=== PATIENT | male | born 1950 | race Caucasian/White ===

== ENCOUNTER 2017-02-09 12:44 | Observation (INO) | payer OTHER ==
--- NOTE | 2017-02-09 14:05 | ED ---
General Adult HPI - General Chief complaint: Recheck/Abnormal Lab/Rx Stated complaint: low hemoglobin-sent by Time Seen by Provider: 02/09/17 13:53 Source: patient, RN notes reviewed, old records reviewed Mode of arrival: ambulatory Limitations: no limitations - History of Present Illness Initial comments: This is a 66-year-old male to the ER with abnormal outpatient lab test. Patient has history of Crohn's disease. Denies blood in his stool. Patient has had outpatient lab test 2 is shows low hemoglobin, once the lab and now 9. Denies weakness or fatigue. He does have mild abdominal pain but states he always has that with his Crohn's disease. No blood thinners. - Related Data Home Medications Medication Instructions Recorded Confirmed Simvastatin [Zocor] 20 mg PO HS 05/26/16 02/09/17 Acetaminophen Tab [Tylenol Tab] 1,000 mg PO DAILY 02/09/17 02/09/17 Lisinopril [Zestril] 2.5 mg PO DAILY 02/09/17 02/09/17 Loperamide HCl [Imodium A-D] 2 mg PO DAILY 02/09/17 02/09/17 Multivitamins, Thera [Multivitamin 1 tab PO DAILY 02/09/17 02/09/17 (formulary)] Allergies Allergy/AdvReac Type Severity Reaction Status Date / Time No Known Allergies Allergy Verified 02/09/17 13:28 Review of Systems ROS Statement: Those systems with pertinent positive or pertinent negative responses have been documented in the HPI. ROS Other: All systems not noted in ROS Statement are negative. Past Medical History Past Medical History: Asthma, CVA/TIA, Hearing Disorder / Deafness, Prostate Disorder, Renal Disease Additional Past Medical History / Comment(s): 05/26/16 FELL,C/O RT HIP PAIN. 05/27 HAD STROKE -RESIDUAL HAS LOSS OF PERIPHERAL VISION. Pt fell and broke L wrist in 2013 and also had fxs in his back. In 01/2015 pt had acute epidural abscess L5-S1, acute discitis and sepsis R ankle (that eventually went systemic per pt). He had a laminectomy, discectomy and decompression L5-S1 along with I and D of an epdural abscess L5-S1. He was transferred to [facility] post op for continued tx of his sepsis. He was sent from [place] to [facility] for another I and D of the back and eventually went home on home care antibiotics. Additional HX: chronic ulcerative colitis , chronic diarrhea-PT STATED HIS NORM IS 3-5 DIARRHEA/WATERY STOOLS PER DAY, BPH, ARTHRITIS R ankle, , chronic stable asthma, DJD, kidney stones, asbestos exposure in the [place], UTI. Pt denies HTN now that he is off steroids and also diabetes. He also has history of Crohn's disease. He is currently on Humira. History of Any Multi-Drug Resistant Organisms: MRSA Date of last positivie culture/infection: January 2015 (At [facility] per patient) MDRO Source:: Right Ankle and Back (per patient) Past Surgical History: Adenoidectomy, Orthopedic Surgery, Tonsillectomy Additional Past Surgical History / Comment(s): 01/2015 Laminectomy, discectomy with decompression L5-S1, I&D epidural abscess L5-S1 (STATED HAD MULTIPLE BX- BENIGN)and aspiration R ankle, 02/2015 I&D L5-S1 at [facility], Yearly colonoscopy . left wrist surgically repaired after fx. Past Anesthesia/Blood Transfusion Reactions: No Reported Reaction Additional Past Anesthesia/Blood Transfusion Reaction / Comment(s): Pt states he recieved blood 02/2015 at [facility] without reaction. Past Psychological History: No Psychological Hx Reported Additional Psychological History / Comment(s): Pt resides alone. He has 5 dogs. . He is independent. He no longer is using any home care. 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 Smoking Status: Never smoker Past Alcohol Use History: None Reported Additional Past Alcohol Use History / Comment(s): Patient has a history of smoking marijuana half ounce per day and quit in 1998. He denies any history of smoking cigarettes. He denies any alcohol use SINCE 1975. Patient is worked in the [employer] and had exposure to asbestos. He is currently living alone with 4 dogs. No recent travel. Past Drug Use History: None Reported - Past Family History Father Family Medical History: Myocardial Infarction ([place]) Additional Family Medical History / Comment(s): Father of massive [place]. Mother Family Medical History: Diabetes Mellitus General Exam Limitations: no limitations General appearance: alert, in no apparent distress Head exam: Present: atraumatic, normocephalic, normal inspection Eye exam: Present: normal appearance, PERRL, EOMI. Absent: scleral icterus, conjunctival injection, periorbital swelling ENT exam: Present: normal exam, mucous membranes moist Neck exam: Present: normal inspection. Absent: tenderness, meningismus, lymphadenopathy Respiratory exam: Present: normal lung sounds bilaterally. Absent: respiratory distress, wheezes, rales, rhonchi, stridor Cardiovascular Exam: Present: regular rate, normal rhythm, normal heart sounds. Absent: systolic murmur, diastolic murmur, rubs, gallop, clicks GI/Abdominal exam: Present: soft, normal bowel sounds. Absent: distended, tenderness, guarding, rebound, rigid Rectal exam: Present: heme (+) stool Extremities exam: Present: normal inspection, full ROM, normal capillary refill. Absent: tenderness, pedal edema, joint swelling, calf tenderness Back exam: Present: normal inspection Neurological exam: Present: alert, oriented X3, CN II-XII intact Psychiatric exam: Present: normal affect, normal mood Skin exam: Present: warm, dry, intact, normal color. Absent: rash Course Vital Signs 02/09/17 02/09/17 02/09/17 13:02 14:11 15:07 Temperature 99.6 F Pulse Rate 113 H 118 H 83 Respiratory 20 18 18 Rate Blood Pressure 125/64 148/79 126/73 O2 Sat by Pulse 96 96 97 Oximetry - Reevaluation(s) Reevaluation #1: 02/09/17 15:25 Patient does feel weak and lightheaded but not dizzy. Medical Decision Making - Medical Decision Making 60 formality ER for evaluation of low hemoglobin. Trending down hematoma from 11-9 out is 8. Patient does have positive fecal, blood tests and blood in his stool. Patient be admitted for GI evaluation - Lab Data Result diagrams: 02/09/17 13:32 02/09/17 13:32 Lab Results 02/09/17 02/09/17 02/09/17 Range/Units 13:32 13:32 13:32 WBC 10.5 (3.8-10.6) k/uL RBC 4.20 L (4.30-5.90) m/uL Hgb 8.7 L (13.0-17.5) gm/dL Hct 29.6 L (39.0-53.0) % MCV 70.4 L (80.0-100.0) fL MCH 20.8 L (25.0-35.0) pg MCHC 29.6 L (31.0-37.0) g/dL RDW 16.8 H (11.5-15.5) % Plt Count 384 (150-450) k/uL Neutrophils % 74 % Lymphocytes % 15 % Monocytes % 6 % Eosinophils % 2 % Basophils % 1 % Neutrophils # 7.7 (1.3-7.7) k/uL Lymphocytes # 1.5 (1.0-4.8) k/uL Monocytes # 0.7 (0-1.0) k/uL Eosinophils # 0.3 (0-0.7) k/uL Basophils # 0.1 (0-0.2) k/uL Hypochromasia Marked Poikilocytosis Slight Anisocytosis Slight Microcytosis Marked Sodium 140 (137-145) mmol/L Potassium 3.7 (3.5-5.1) mmol/L Chloride 106 (98-107) mmol/L Carbon Dioxide 22 (22-30) mmol/L Anion Gap 12 mmol/L BUN 24 H (9-20) mg/dL Creatinine 1.25 (0.66-1.25) mg/dL Est GFR (MDRD) Af Amer >60 (>60 ml/min/1.73 sqM) Est GFR (MDRD) Non-Af 58 (>60 ml/min/1.73 sqM) Glucose 175 H (74-99) mg/dL Calcium 8.8 (8.4-10.2) mg/dL Phosphorus 3.5 (2.5-4.5) mg/dL Magnesium 2.0 (1.6-2.3) mg/dL Total Bilirubin 0.4 (0.2-1.3) mg/dL AST 24 (17-59) U/L ALT 22 (21-72) U/L Alkaline Phosphatase 108 (38-126) U/L Total Protein 7.7 (6.3-8.2) g/dL Albumin 3.7 (3.5-5.0) g/dL Lipase 196 (23-300) U/L Stool Occult Blood (Negative) 02/09/17 Range/Units 14:19 WBC (3.8-10.6) k/uL RBC (4.30-5.90) m/uL Hgb (13.0-17.5) gm/dL Hct (39.0-53.0) % MCV (80.0-100.0) fL MCH (25.0-35.0) pg MCHC (31.0-37.0) g/dL RDW (11.5-15.5) % Plt Count (150-450) k/uL Neutrophils % % Lymphocytes % % Monocytes % % Eosinophils % % Basophils % % Neutrophils # (1.3-7.7) k/uL Lymphocytes # (1.0-4.8) k/uL Monocytes # (0-1.0) k/uL Eosinophils # (0-0.7) k/uL Basophils # (0-0.2) k/uL Hypochromasia Poikilocytosis Anisocytosis Microcytosis Sodium (137-145) mmol/L Potassium (3.5-5.1) mmol/L Chloride (98-107) mmol/L Carbon Dioxide (22-30) mmol/L Anion Gap mmol/L BUN (9-20) mg/dL Creatinine (0.66-1.25) mg/dL Est GFR (MDRD) Af Amer (>60 ml/min/1.73 sqM) Est GFR (MDRD) Non-Af (>60 ml/min/1.73 sqM) Glucose (74-99) mg/dL Calcium (8.4-10.2) mg/dL Phosphorus (2.5-4.5) mg/dL Magnesium (1.6-2.3) mg/dL Total Bilirubin (0.2-1.3) mg/dL AST (17-59) U/L ALT (21-72) U/L Alkaline Phosphatase (38-126) U/L Total Protein (6.3-8.2) g/dL Albumin (3.5-5.0) g/dL Lipase (23-300) U/L Stool Occult Blood Positive (Negative) Disposition Clinical Impression: GIB (gastrointestinal bleeding), Anemia Disposition: ADMITTED IP TO THIS [facility] Condition: Fair Referrals: Atul Mejía DO [Primary Care Provider] - 1-2 days
[2017-02-09 14:08] LABS: Anisocytosis Slight; Basophils # (A) 0.1 k/uL (0-0.2); Basophils % (A) 1 %; CHCM 28.6; Eosinophils # (A) 0.3 k/uL (0-0.7); Eosinophils % (A) 2 %; HCT 29.6 % (39.0-53.0); HDW 3.69; HGB 8.7 gm/dL (13.0-17.5); Hypochromasia Marked; Luc # (Auto) 0.25; Luc % (Auto) 2; Lymphocytes # (A) 1.5 k/uL (1.0-4.8); Lymphocytes % (A) 15 %; MCH 20.8 pg (25.0-35.0); MCHC 29.6 g/dL (31.0-37.0); MCV 70.4 fL (80.0-100.0); Mean Platelet Volume 6.1; Microcytosis Marked; Monocytes # (A) 0.7 k/uL (0-1.0); Monocytes % (A) 6 %; Neutrophils # (A) 7.7 k/uL (1.3-7.7); Neutrophils % (A) 74 %; Poikilocytosis Slight; RDW 16.8 % (11.5-15.5); WBC 10.5 k/uL (3.8-10.6); WBC (Perox) 10.16
[2017-02-09 14:16] LABS: ALT 22 U/L (21-72); AST 24 U/L (17-59); Alkaline Phosphatase 108 U/L (38-126); Anion Gap 12 mmol/L; Blood Urea Nitrogen 24 mg/dL (9-20); Calcium 8.8 mg/dL (8.4-10.2); Carbon Dioxide 22 mmol/L (22-30); Chloride 106 mmol/L (98-107); Glucose 175 mg/dL (74-99); Non-African American GFR(MDRD) 58 (>60 ml/min/1.73 sqM); Potassium 3.7 mmol/L (3.5-5.1); Sodium 140 mmol/L (137-145); Total Bilirubin 0.4 mg/dL (0.2-1.3); Total Protein 7.7 g/dL (6.3-8.2)
[2017-02-09 14:33] LABS: Phosphorous 3.5 mg/dL (2.5-4.5)
[2017-02-09] MEDS ORDERED: SODIUM CHLORIDE 0.9% 1,000 ML IV ONE (15:21)
[2017-02-09] MEDS ORDERED: PANTOPRAZOLE 40 MG/10 ML VIAL IVP STA (15:22)
[2017-02-09] MEDS ORDERED: ONDANSETRON 4 MG/2 ML VIAL IVP PRN (15:22)
[2017-02-09 16:37] VITALS: RESP 16
[2017-02-09] MEDS ORDERED: ATORVASTATIN 10 MG TAB PO SCH (21:00)
[2017-02-10 00:44] LABS: Anisocytosis Slight; CH 19.9; HCT 27.8 % (39.0-53.0); Hypochromasia Marked; MCH 20.6 pg (25.0-35.0); MCHC 28.8 g/dL (31.0-37.0); MCV 71.5 fL (80.0-100.0); Mean Platelet Volume 6.3; Microcytosis Moderate; Poikilocytosis Slight; RBC 3.88 m/uL (4.30-5.90); RDW 16.9 % (11.5-15.5); WBC 8.6 k/uL (3.8-10.6)
[2017-02-10 08:35] VITALS: BP 127/86; PULSE 88; TEMP 98.3
[2017-02-10] MEDS ORDERED: PANTOPRAZOLE 40 MG/10 ML VIAL IVP SCH (09:00)
[2017-02-10] MEDS ORDERED: LOPERAMIDE 2 MG CAP PO SCH (09:00)
[2017-02-10] MEDS ORDERED: LISINOPRIL 2.5 MG TAB PO SCH (09:00)
[2017-02-10] MEDS ORDERED: MULTIVITAMINS, THERA 1 EACH TAB PO SCH (12:00)
[2017-02-10 12:59] LABS: Anisocytosis Slight; Basophils % (A) 0 %; CH 19.9; Eosinophils # (A) 0.3 k/uL (0-0.7); Eosinophils % (A) 3 %; HCT 30.9 % (39.0-53.0); HGB 8.8 gm/dL (13.0-17.5); Hypochromasia Marked; Luc # (Auto) 0.22; Luc % (Auto) 2; Lymphocytes # (A) 1.6 k/uL (1.0-4.8); Lymphocytes % (A) 16 %; MCH 20.5 pg (25.0-35.0); MCHC 28.7 g/dL (31.0-37.0); MCV 71.6 fL (80.0-100.0); Mean Platelet Volume 6.3; Microcytosis Moderate; Monocytes # (A) 0.6 k/uL (0-1.0); Monocytes % (A) 6 %; Neutrophils # (A) 7.4 k/uL (1.3-7.7); Neutrophils % (A) 73 %; Poikilocytosis Slight; RBC 4.31 m/uL (4.30-5.90); RDW 16.8 % (11.5-15.5); WBC 10.1 k/uL (3.8-10.6)
--- NOTE | 2017-02-10 13:16 | P.CONS ---
History of Present Illness - Reason for Consult Consult date: 02/10/17 Anemia Requesting physician: Rex Gabriel - History of Present Illness 66-year-old gentleman patient of Dr. Mejía with a past medical history of colitis that dates back to [id number] diagnosed with Crohn's colitis possible ileitis around 2012 maintained on Remicade/Humira in the past. Last dose of Humira 10-12 months ago. Presents with asymptomatic anemia; abnormal outpatient CBC. Patient was evaluated at the [place] [facility] 2 weeks ago with a reported hemoglobin 11.7. He was evaluated by [facility] a week ago and was advised to have his hemoglobin rechecked because previous hemoglobin was in the 13 range. It was rechecked 2 days ago and reported as 9.7. He was sent to the hospital for further evaluation. Patient denies overt bleeding such as hematemesis hematochezia or melena. Admission hemoglobin 8.7 decreased 8.0 currently 8.8. MCV 71. Platelet 370. BUN 24. Creatinine 1.2. Denies epigastric or abdominal pain. No NSAIDs or aspirin or alcohol usage. No antiplatelet medications. Denies weight loss or changes in appetite. Patient normally has 3-4 nonbloody loose bowel movement daily. He has been followed closely over the last several years at [place] [facility] [place]; Drs. Gerard/Al. Oral iron supplemenation in the past but caused GI upset. Takes MVI daily. He underwent a complete colonoscopy about 10 months ago which he describes as "distorted terminal ileum with biopsies consistent with dysplasia but also dysplasia throughout my colon". Repeat colonoscopy at [place] 3 months ago was incomplete secondary to a stricture which he describes was "in the left colon". Patient states he was advised by the [place] gastroenterologists to seek a surgical evaluation in [place] however patient has requested to have his evaluation done locally in the [place] area. He is presently not on IV Biologics or oral maintenance medications for his Crohn's. He reports an upcoming gastroenterology appointment scheduled in the next month however office was called; no appointments made; he canceled his appointment September. Last EGD a year ago. No history of peptic ulcer disease. Review of Systems Constitutional: Denies fever, chills, sweats, weight gain, or loss. HEENT: Negative for migraines, blurred vision or loss, earaches, drainage, tinnitus, oral mucosal lesions, dysphagia, or odynophagia. Cardiac: Negative for chest pain, arrhythmias, or palpitation. Respiratory: Asthma Negative for shortness of breath, hemoptysis, cough, or sputum production. Gastrointestinal: See HPI for pertinent findings. Genitourinary: Negative for hematuria, urgency, frequency, polyuria, dysuria, or penile discharge. Musculoskeletal: Osteoarthritis. Negative for muscle aches, swelling, arthritis , and arthralgias. Neurologic: History of CVA/TIA.. Endocrine: Negative for thyroid problems. Skin: Negative for rash or itching. Psychiatric: Negative history for depression and anxiety All systems: negative (See HPI) Past Medical History Past Medical History: Asthma, CVA/TIA, Hearing Disorder / Deafness, Prostate Disorder, Renal Disease Additional Past Medical History / Comment(s): 05/26/16 FELL/ RT HIP FX 05/27/15 HAD STROKE -RESIDUAL HAS LOSS OF PERIPHERAL VISION. Pt fell and broke L wrist in 2013 and also had fxs in his back. In 01/2015 pt had acute epidural abscess L5-S1, acute discitis and sepsis R ankle (that eventually went systemic per pt). He had a laminectomy, discectomy and decompression L5-S1 along with I and D of an epdural abscess L5-S1. He was transferred to [facility] post op for continued tx of his sepsis. He was sent [place] to [facility] for another I and D of the back and eventually went home on home care antibiotics. Additional HX: chronic ulcerative COLITIS, chronic diarrhea-PT STATED HIS NORM IS 3-5 DIARRHEA/WATERY STOOLS PER DAY, BPH, ARTHRITIS R ankle, , chronic stable asthma, DJD, kidney stones, asbestos exposure in the [place], UTI. Pt denies HTN now that he is off steroids and also diabetes. He also has history of Crohn's disease. He is currently on Humira. History of Any Multi-Drug Resistant Organisms: MRSA Year Discovered:: January 2015 (At [facility] per patient) MDRO Source:: Right Ankle and Back (per patient) Past Surgical History: Adenoidectomy, Orthopedic Surgery, Tonsillectomy Additional Past Surgical History / Comment(s): 01/2015 Laminectomy, discectomy with decompression L5-S1, I&D epidural abscess L5-S1 (STATED HAD MULTIPLE BX- BENIGN)and aspiration R ankle, 02/2015 I&D L5-S1 at [facility], Yearly colonoscopy . left wrist surgically repaired after fx-PLATE/SCREW. RT HIP TEVIN/SCREWS. Past Anesthesia/Blood Transfusion Reactions: No Reported Reaction Additional Past Anesthesia/Blood Transfusion Reaction / Comm: Pt states he recieved blood 02/2015 at [facility] without reaction. Past Psychological History: No Psychological Hx Reported Additional Psychological History / Comment(s): Pt resides alone. DRIVES. He has 6 dogs. . He is independent. He no longer is using any home care. 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 Smoking Status: Never smoker Past Alcohol Use History: None Reported Additional Past Alcohol Use History / Comment(s): Patient has a history of smoking marijuana half ounce per day and quit in 1998. He denies any history of smoking cigarettes. He denies any alcohol use SINCE 1975. Patient is worked in the [employer] and had exposure to asbestos. He is currently living alone with 4 dogs. Past Drug Use History: None Reported - Past Family History Father Family Medical History: Myocardial Infarction ([place]) Additional Family Medical History / Comment(s): Father of massive [place]. Mother Family Medical History: Diabetes Mellitus Medications and Allergies Home Medications Medication Instructions Recorded Confirmed Type Simvastatin [Zocor] 20 mg PO HS 05/26/16 02/09/17 History Acetaminophen Tab [Tylenol Tab] 1,000 mg PO DAILY 02/09/17 02/09/17 History Loperamide HCl [Imodium A-D] 2 mg PO DAILY 02/09/17 02/09/17 History Multivitamins, Thera [Multivitamin 1 tab PO DAILY 02/09/17 02/09/17 History (formulary)] Allergies Allergy/AdvReac Type Severity Reaction Status Date / Time No Known Allergies Allergy Verified 02/09/17 13:28 Physical Exam Vitals: Vital Signs Temp Pulse Pulse Pulse Resp BP BP 02/10/17 08:00 98.3 F 88 16 127/86 02/10/17 04:00 98.2 F 90 16 118/73 02/10/17 03:46 16 02/09/17 23:55 16 02/09/17 20:00 16 02/09/17 19:51 98.2 F 84 16 120/69 02/09/17 16:05 97.9 F 85 16 133/77 02/09/17 15:57 98.7 F 02/09/17 15:07 83 18 126/73 02/09/17 14:11 118 H 18 148/79 02/09/17 13:02 99.6 F 113 H 20 125/64 Pulse Ox 02/10/17 08:00 95 02/10/17 04:00 96 02/10/17 03:46 02/09/17 23:55 02/09/17 20:00 02/09/17 19:51 94 L 02/09/17 16:05 95 02/09/17 15:57 02/09/17 15:07 97 02/09/17 14:11 96 02/09/17 13:02 96 Intake and Output 02/09/17 02/10/17 02/10/17 22:59 06:59 14:59 Intake Total 400 Balance 400 Intake: Oral 400 Other: Voiding Method Toilet Toilet Toilet # Voids 1 2 Weight 95.7 kg General appearance: The patient is alert, oriented, in no acute distress. HET: Head is normocephalic and atraumatic. Pupils are equal and reactive. Oropharynx is clear without lesions. Neck: Supple without lymphadenopathy. Trachea midline. Heart: S1 S2. Regular rate and rhythm. Lungs: No crackles or wheezes are heard. Abdomen: Soft, nontender, nondistended with bowel sounds. No peritoneal signs. No palpable organomegaly or masses. Extremities: Normal skin color and turgor. No cyanosis, rash, ulceration, clubbing, or edema. Radial and pedal pulses are 2/4 bilaterally. Neurological: No focal deficits. Strength and sensation are grossly intact. Results CBC & Chem 7: 02/10/17 12:42 02/09/17 13:32 Labs: Abnormal Lab Results - Last 24 Hours (Table) 02/09/17 02/09/17 02/10/17 Range/Units 13:32 13:32 00:30 RBC 4.20 L 3.88 L (4.30-5.90) m/uL Hgb 8.7 L 8.0 L (13.0-17.5) gm/dL Hct 29.6 L 27.8 L (39.0-53.0) % MCV 70.4 L 71.5 L (80.0-100.0) fL MCH 20.8 L 20.6 L (25.0-35.0) pg MCHC 29.6 L 28.8 L (31.0-37.0) g/dL RDW 16.8 H 16.9 H (11.5-15.5) % BUN 24 H (9-20) mg/dL Glucose 175 H (74-99) mg/dL 02/10/17 Range/Units 12:42 RBC (4.30-5.90) m/uL Hgb 8.8 L (13.0-17.5) gm/dL Hct 30.9 L (39.0-53.0) % MCV 71.6 L (80.0-100.0) fL MCH 20.5 L (25.0-35.0) pg MCHC 28.7 L (31.0-37.0) g/dL RDW 16.8 H (11.5-15.5) % BUN (9-20) mg/dL Glucose (74-99) mg/dL Assessment and Plan (1) Anemia Narrative/Plan: acute on chronic suspected microcytic iron deficiency possible acute blood loss without overt bleeding. History of anemia not maintained on iron secondary to GI side effects. Complete colonoscopy 9-10 months ago [place] with reported findings of "dysplastic ileum biopsies as well as throughout the colon". Repeat colonoscopy 3 months ago incomplete secondary to reported left-sided stricture. Status: Chronic (2) Crohn's colitis Status: Acute Plan: 1. Case was discussed with attending Dr. Gabriel. Patient is not having active bleeding, chest pain, shortness of breath, or abdominal pain and hemoglobin is stable. Patient was advised iron supplementation possibly parenteral secondary to his history of oral iron supplementation causing GI upset. 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 Patient states he is seeking a local surgical opinion for possible bowel resection secondary to the reported stricture he was told about at the [place] clinic. 2. Microcytic anemia will not be pursued with endoscopic exams at this time as patient is declining lower colonoscopy. EGD was discussed however patient is not exhibiting symptoms of upper GI bleed but this can be contingent and reevaluated in the outpatient setting. 3. He can follow up locally in the GI office next 1-2 weeks for reevaluation and discussion of Crohn's/ anemia management. Patient is agreeable with this plan of care. Thank you for this kind referral and the opportunity to participate in the care of your patient. This consultation was discussed with Dr. Villar. The impression and plan of care have been directed as dictated.
--- NOTE | 2017-02-11 09:06 | HP ---
DATE OF ADMISSION: 02/09/2017 H&P/DISCHARGE SUMMARY: Patient is a 66-year-old was sent in because of drop in hemoglobin. Patient apparently had a recent hemoglobin of around 10, 11 and patient repeat hemoglobin was checked a couple days ago, which was found to be 9.7, yesterday it was 8.7, although patient has a few episodes of diarrhea, but patient denied any blood in the stool in the stools. The patient follows with [facility], extensively evaluated in the past. Patient had a recent colonoscopy. Because of the stricture, they are unable to pass the colonoscope and the patient has diffuse colitis and patient in the past was diagnosed with Crohn's ileitis in the past. Patient was in the past on Humira. Patient was extensively evaluated in [facility] and the patient was referred to surgical services at [facility] in [place]. Patient was evaluated by gastroenterology here in the hospital. Patient denied any obvious bleeding. The patient denied any hematemesis, hematochezia, denied any abdominal pain. Patient's repeat hemoglobin ( ) yesterday 8.7, today 8.1 and again repeat is 8.8. Patient had an upper gastrointestinal endoscopy about a year ago. As patient was extensively worked up in the ER, there is no significant further intervention that can be done here ( ). The patient is being discharged to follow up with gastroenterology in [facility]. REVIEW OF SYSTEMS: CONSTITUTIONAL: No fever, no malaise, no fatigue. HEENT: No recent visual problems or hearing problems. Denied any sore throat. CARDIOVASCULAR: No chest pain, orthopnea, PND, no palpitations, no syncope. PULMONARY: No shortness of breath, no cough, no hemoptysis. GASTROINTESTINAL: As described in history of present illness. NEUROLOGICAL: No headaches, no weakness, no numbness. HEMATOLOGICAL: Denies any bleeding or petechiae. GENITOURINARY: Denies any burning micturition, frequency, or urgency. MUSCULOSKELETAL/RHEUMATOLOGICAL: Denies any joint pain, swelling, or any muscle pain. ENDOCRINE: Denies any polyuria or polydipsia. The rest of the 14 point review of systems is negative. PAST MEDICAL HISTORY: ( ). Hyperlipidemia. Home medications: ( ) multivitamins. The patient had diarrhea from probably his colitis. Past medical history is also significant for Crohn's ileitis, ( ) surgery, back surgery in the past. SOCIAL HISTORY: Denied any smoking or alcohol abuse or any drug abuse. FAMILY HISTORY: Father had myocardial infarction, mother had diabetes mellitus. ALLERGIES: No known drug allergies. PHYSICAL EXAMINATION: VITAL SIGNS: Temperature 98.2, pulse of 88, respiratory rate 16, blood pressure 127/86, saturating at 98% on room air. GENERAL: The patient is alert and oriented x3, not in any acute distress. Well developed, well nourished. HEENT: Pupils are round and equally reacting to light. EOMI. No scleral icterus. No conjunctival pallor. Normocephalic, atraumatic. No pharyngeal erythema. No thyromegaly. CARDIOVASCULAR: S1 and S2 present. No murmurs, rubs, or gallops. PULMONARY: Chest is clear to auscultation, no wheezing or crackles. ABDOMEN: Soft, nontender, nondistended, normoactive bowel sounds. No palpable organomegaly. MUSCULOSKELETAL: No joint swelling or deformity. EXTREMITIES: No cyanosis, clubbing, or pedal edema. NEUROLOGICAL: Gross neurological examination did not reveal any focal deficits. SKIN: No rashes. LABORATORY DATA: Significant ones as described above. Patient has some CKD with chronically elevated creatinine 1.25, probably from his chronic diarrhea. ASSESSMENT AND PLAN: 1. Anemia no obvious gastrointestinal bleed to intervene. The patient has ileitis and Crohn's ileitis in the past with extensively evaluated in [facility]. The patient will be asked to go back to [facility]. Hemoglobin remains stable. No further intervention will be done here. ( ). 2. Crohn's ileitis, further management in [facility] as mentioned earlier. 3. Renal failure, not sure whether it is chronic kidney disease or acute kidney injury. The patient received IV fluids here. The patient will be encouraged to drink water at home. May be related to acute kidney injury probably from chronic diarrhea and prerenal azotemia. I cannot ( ) chronic kidney disease at this point of time. The patient will be discharged today. DISCHARGE DIET: Cardiac. Follow up in [facility]. Activity as tolerated. Patient will follow with Dr. Atul Mejía in 3 to 7 days. Can continue Imodium for diarrhea symptoms.
== END 2017-02-10 15:25 | disposition home or self-care (01) ==
LOC: EC 12:44 → 3OBS 15:21
PROVIDERS: ADMIT Hospitalist; ATTEND Hospitalist
DX: D64.9 Anemia, unspecified (principal); D50.9 Iron deficiency anemia, unspecified; K50.80 Crohn's disease of both small and large intestine without complications; K52.9 Noninfective gastroenteritis and colitis, unspecified; N19 Unspecified kidney failure; E78.5 Hyperlipidemia, unspecified; H91.90 Unspecified hearing loss, unspecified ear; Z79.899 Other long term (current) drug therapy; Z86.73 Personal history of transient ischemic attack (TIA), and cerebral infarction without residual deficits; Z86.14 Personal history of Methicillin resistant Staphylococcus aureus infection; Z83.3 Family history of diabetes mellitus; Z82.49 Family history of ischemic heart disease and other diseases of the circulatory system; Z77.090 Contact with and (suspected) exposure to asbestos; Z87.442 Personal history of urinary calculi
CPT/HCPCS: 96360; 96361 ×2; 96376; 96374; 99285; 36415; 80053; 83690; 83735; 84100; 85025 ×2; 85027; 82272; G0378 ×2; C9113 ×2

== ENCOUNTER 2017-06-17 10:29 | Inpatient (IN) | payer OTHER ==
[2017-06-17] MEDS ORDERED: ONDANSETRON 4 MG/2 ML VIAL IVP STA (10:50)
[2017-06-17] MEDS ORDERED: MECLIZINE 12.5 MG TAB PO STA (10:50)
[2017-06-17] MEDS ORDERED: SODIUM CHLORIDE 0.9% 500 ML IV STA (10:50)
--- NOTE | 2017-06-17 10:55 | ED ---
General Adult HPI - General Chief complaint: Dizziness Stated complaint: Dizziness Time Seen by Provider: 06/17/17 10:34 Source: patient, EMS, RN notes reviewed Mode of arrival: EMS - History of Present Illness Initial comments: 66-year-old male with history of hypertension, asthma, CVA, and WPW presents with left-sided headache, lightheadedness and nausea. Patient was on a ladder doing some work on his home, he felt some ringing in his ears followed by headache behind his right eye as well as vertigo and dizziness. Denies any changes in his hearing. Denies any cough or cold symptoms. Denies shortness of breath. Patient did have some nausea, no vomiting. No chest pain no palpitations. No abdominal pain. No fever or chills. - Related Data Home Medications Medication Instructions Recorded Confirmed Acetaminophen Tab [Tylenol Tab] 1,000 mg PO Q6H PRN 02/09/17 06/17/17 Loperamide HCl [Imodium A-D] 6 mg PO DAILY 02/09/17 06/17/17 Albuterol Nebulized [Ventolin 2.5 mg INHALATION RT-Q6H PRN 06/17/17 06/17/17 Nebulized] Aspirin 325 mg PO DAILY 06/17/17 06/17/17 Ferrous Sulfate [Feosol] 325 mg PO DAILY 06/17/17 06/17/17 predniSONE 20 mg PO DAILY 06/17/17 06/17/17 Allergies Allergy/AdvReac Type Severity Reaction Status Date / Time No Known Allergies Allergy Verified 06/17/17 12:01 Review of Systems ROS Statement: Those systems with pertinent positive or pertinent negative responses have been documented in the HPI. ROS Other: All systems not noted in ROS Statement are negative. Past Medical History Past Medical History: Asthma, CVA/TIA, Hearing Disorder / Deafness, Prostate Disorder, Renal Disease Additional Past Medical History / Comment(s): 05/26/16 FELL/ RT HIP FX 05/27/15 HAD STROKE -RESIDUAL HAS LOSS OF PERIPHERAL VISION. Pt fell and broke L wrist in 2013 and also had fxs in his back. In 01/2015 pt had acute epidural abscess L5-S1, acute discitis and sepsis R ankle (that eventually went systemic per pt). He had a laminectomy, discectomy and decompression L5-S1 along with I and D of an epdural abscess L5-S1. He was transferred to [facility] post op for continued tx of his sepsis. He was sent from [place] to [facility] for another I and D of the back and eventually went home on home care antibiotics. Additional HX: chronic ulcerative COLITIS, chronic diarrhea-PT STATED HIS NORM IS 3-5 DIARRHEA/WATERY STOOLS PER DAY, BPH, ARTHRITIS R ankle, , chronic stable asthma, DJD, kidney stones, asbestos exposure in the [place], UTI. Pt denies HTN now that he is off steroids and also diabetes. He also has history of Crohn's disease. He is currently on Humira. History of Any Multi-Drug Resistant Organisms: MRSA Date of last positivie culture/infection: January 2015 (At [facility] per patient) MDRO Source:: Right Ankle and Back (per patient) Past Surgical History: Adenoidectomy, Orthopedic Surgery, Tonsillectomy Additional Past Surgical History / Comment(s): 01/2015 Laminectomy, discectomy with decompression L5-S1, I&D epidural abscess L5-S1 (STATED HAD MULTIPLE BX- BENIGN)and aspiration R ankle, 02/2015 I&D L5-S1 at [facility], Yearly colonoscopy . left wrist surgically repaired after fx-PLATE/SCREW. RT HIP TEVIN/SCREWS. Past Anesthesia/Blood Transfusion Reactions: No Reported Reaction Additional Past Anesthesia/Blood Transfusion Reaction / Comment(s): Pt states he recieved blood 02/2015 at [facility] without reaction. Past Psychological History: No Psychological Hx Reported Smoking Status: Never smoker Past Alcohol Use History: None Reported Past Drug Use History: None Reported - Past Family History Father Family Medical History: Myocardial Infarction ([place]) Additional Family Medical History / Comment(s): Father of massive [place]. Mother Family Medical History: Diabetes Mellitus General Exam General appearance: alert, other (Patient prefers to keep his eyes closed) Head exam: Present: atraumatic, normocephalic Eye exam: Present: normal appearance, PERRL, EOMI ENT exam: Present: mucous membranes dry, TM's normal bilaterally Neck exam: Present: normal inspection. Absent: meningismus Respiratory exam: Present: normal lung sounds bilaterally. Absent: respiratory distress Cardiovascular Exam: Present: regular rate, normal rhythm GI/Abdominal exam: Present: soft. Absent: distended, tenderness, guarding Extremities exam: Present: normal inspection, normal capillary refill. Absent: pedal edema Neurological exam: Present: alert, oriented X3, CN II-XII intact, other ( Patient prefers to keep his eyes closed. No ataxia no nystagmus). Absent: motor sensory deficit Psychiatric exam: Present: normal affect, normal mood Skin exam: Present: warm, dry. Absent: cyanosis, diaphoretic Course Vital Signs 06/17/17 06/17/17 06/17/17 10:34 11:41 12:18 Pulse Rate 77 69 77 Respiratory 18 18 18 Rate Blood Pressure 155/96 147/69 141/84 O2 Sat by Pulse 97 97 99 Oximetry - Reevaluation(s) Reevaluation #1: 06/17/17 12:40 On reevaluation, patient's symptoms are somewhat improved. EKG Findings - EKG Comments: EKG Findings:: EKG shows normal sinus rhythm, DE is 124, there is Awake consistent with Wjgfd-Vjdegpslk-Otfkz, ventricular rate of 74, QRS duration 106 , QTC 459 Medical Decision Making - Medical Decision Making 66-year-old male presenting with sudden onset dizziness and lightheadedness. This was accompanied by headache. Patient does report some nausea. Denies ear pain or changes in his hearing. He has history of CVA, Ihcyq-Fxnrtabgg-Lmzlj syndrome, and hypertension. CT the head is obtained, shows old bilateral occipital infarcts, there is CT evidence of acute mastoiditis, however patient is not tender over the right mastoid, there is no erythema. Laboratory studies reveal white blood cell count 13, hemoglobin 10.9 which is improved from previous at 8.8. Glucose is elevated 286. Patient has been told he was prediabetic but no formal diagnosis of diabetes has been made. Patient does have an lactic acidosis of 2.8. Urinalysis shows trace ketones and 4+ glucose. Patient's symptoms are likely related to combination dehydration and vertigo. He will be placed in observation for continued IV hydration and reevaluation. Diagnosis: Dehydration, lactic acidosis, new onset diabetes, vertigo - Lab Data Result diagrams: 06/17/17 10:40 06/17/17 10:40 Lab Results 06/17/17 06/17/17 06/17/17 Range/Units 10:40 10:40 10:40 WBC 13.0 H (3.8-10.6) k/uL RBC 4.67 (4.30-5.90) m/uL Hgb 10.9 L (13.0-17.5) gm/dL Hct 37.0 L (39.0-53.0) % MCV 79.2 L (80.0-100.0) fL MCH 23.4 L (25.0-35.0) pg MCHC 29.5 L (31.0-37.0) g/dL RDW 20.2 H (11.5-15.5) % Plt Count 208 (150-450) k/uL Neutrophils % 88 % Lymphocytes % 8 % Monocytes % 3 % Eosinophils % 0 % Basophils % 0 % Neutrophils # 11.4 H (1.3-7.7) k/uL Lymphocytes # 1.0 (1.0-4.8) k/uL Monocytes # 0.4 (0-1.0) k/uL Eosinophils # 0.0 (0-0.7) k/uL Basophils # 0.0 (0-0.2) k/uL Hypochromasia Marked Anisocytosis Moderate Microcytosis Slight PT 9.8 (9.0-12.0) sec INR 1.0 (<1.2) Sodium 136 L (137-145) mmol/L Potassium 3.9 (3.5-5.1) mmol/L Chloride 104 (98-107) mmol/L Carbon Dioxide 23 (22-30) mmol/L Anion Gap 9 mmol/L BUN 31 H (9-20) mg/dL Creatinine 1.15 (0.66-1.25) mg/dL Est GFR (MDRD) Af Amer >60 (>60 ml/min/1.73 sqM) Est GFR (MDRD) Non-Af >60 (>60 ml/min/1.73 sqM) Glucose 286 H (74-99) mg/dL Plasma Lactic Acid Hernán (0.7-2.0) mmol/L Calcium 8.6 (8.4-10.2) mg/dL Total Bilirubin 0.4 (0.2-1.3) mg/dL AST 23 (17-59) U/L ALT 33 (21-72) U/L Alkaline Phosphatase 89 (38-126) U/L Troponin I (0.000-0.034) ng/mL Total Protein 6.4 (6.3-8.2) g/dL Albumin 3.5 (3.5-5.0) g/dL Urine Color Urine Appearance (Clear) Urine pH (5.0-8.0) Ur Specific [place] (1.001-1.035) Urine Protein (Negative) Urine Glucose (UA) (Negative) Urine Ketones (Negative) Urine Blood (Negative) Urine Nitrite (Negative) Urine Bilirubin (Negative) Urine Urobilinogen (<2.0) mg/dL Ur Leukocyte Esterase (Negative) Urine RBC (0-5) /hpf Urine WBC (0-5) /hpf Ur Squamous Epith Cells (0-4) /hpf Urine Bacteria (None) /hpf Urine Mucus (None) /hpf 06/17/17 06/17/17 06/17/17 Range/Units 10:40 11:18 12:18 WBC (3.8-10.6) k/uL RBC (4.30-5.90) m/uL Hgb (13.0-17.5) gm/dL Hct (39.0-53.0) % MCV (80.0-100.0) fL MCH (25.0-35.0) pg MCHC (31.0-37.0) g/dL RDW (11.5-15.5) % Plt Count (150-450) k/uL Neutrophils % % Lymphocytes % % Monocytes % % Eosinophils % % Basophils % % Neutrophils # (1.3-7.7) k/uL Lymphocytes # (1.0-4.8) k/uL Monocytes # (0-1.0) k/uL Eosinophils # (0-0.7) k/uL Basophils # (0-0.2) k/uL Hypochromasia Anisocytosis Microcytosis PT (9.0-12.0) sec INR (<1.2) Sodium (137-145) mmol/L Potassium (3.5-5.1) mmol/L Chloride (98-107) mmol/L Carbon Dioxide (22-30) mmol/L Anion Gap mmol/L BUN (9-20) mg/dL Creatinine (0.66-1.25) mg/dL Est GFR (MDRD) Af Amer (>60 ml/min/1.73 sqM) Est GFR (MDRD) Non-Af (>60 ml/min/1.73 sqM) Glucose (74-99) mg/dL Plasma Lactic Acid Hernán 2.8 H* (0.7-2.0) mmol/L Calcium (8.4-10.2) mg/dL Total Bilirubin (0.2-1.3) mg/dL AST (17-59) U/L ALT (21-72) U/L Alkaline Phosphatase (38-126) U/L Troponin I <0.012 (0.000-0.034) ng/mL Total Protein (6.3-8.2) g/dL Albumin (3.5-5.0) g/dL Urine Color Yellow Urine Appearance Clear (Clear) Urine pH 5.5 (5.0-8.0) Ur Specific [place] 1.023 (1.001-1.035) Urine Protein Trace H (Negative) Urine Glucose (UA) 4+ H (Negative) Urine Ketones Trace H (Negative) Urine Blood Trace H (Negative) Urine Nitrite Negative (Negative) Urine Bilirubin Negative (Negative) Urine Urobilinogen <2.0 (<2.0) mg/dL Ur Leukocyte Esterase Negative (Negative) Urine RBC 1 (0-5) /hpf Urine WBC 2 (0-5) /hpf Ur Squamous Epith Cells <1 (0-4) /hpf Urine Bacteria Rare H (None) /hpf Urine Mucus Rare H (None) /hpf Disposition Clinical Impression: Dehydration, Diabetes mellitus, new onset, Lactic acidosis, Vertigo Disposition: ADMITTED IP TO THIS [facility] Condition: Stable Referrals: Atul Mejía DO [Primary Care Provider] - 1-2 days Decision to Admit Reason: Admit from EC Decision Date: 06/17/17 Decision Time: 12:44
[2017-06-17 11:29] LABS: Anisocytosis Moderate; Basophils % (A) 0 %; CH 23.6; CHCM 29.9; Eosinophils % (A) 0 %; HDW 2.63; HGB 10.9 gm/dL (13.0-17.5); Hypochromasia Marked; Luc # (Auto) 0.11; Luc % (Auto) 1; Lymphocytes % (A) 8 %; MCH 23.4 pg (25.0-35.0); MCHC 29.5 g/dL (31.0-37.0); MCV 79.2 fL (80.0-100.0); Mean Platelet Volume 7.5; Microcytosis Slight; Monocytes # (A) 0.4 k/uL (0-1.0); Monocytes % (A) 3 %; Neutrophils # (A) 11.4 k/uL (1.3-7.7); Neutrophils % (A) 88 %; RBC 4.67 m/uL (4.30-5.90); RDW 20.2 % (11.5-15.5); WBC (Perox) 13.19
[2017-06-17 11:41] LABS: Prothrombin Time 9.8 sec (9.0-12.0)
[2017-06-17 11:42] LABS: ALT 33 U/L (21-72); AST 23 U/L (17-59); Alkaline Phosphatase 89 U/L (38-126); Anion Gap 9 mmol/L; Blood Urea Nitrogen 31 mg/dL (9-20); Calcium 8.6 mg/dL (8.4-10.2); Carbon Dioxide 23 mmol/L (22-30); Chloride 104 mmol/L (98-107); Glucose 286 mg/dL (74-99); Non-African American GFR(MDRD) >60 (>60 ml/min/1.73 sqM); Potassium 3.9 mmol/L (3.5-5.1); Sodium 136 mmol/L (137-145); Total Bilirubin 0.4 mg/dL (0.2-1.3); Total Protein 6.4 g/dL (6.3-8.2)
--- NOTE | 2017-06-17 11:47 | CT ---
EXAMINATION TYPE: CT brain wo con DATE OF EXAM: 06/17/2017 COMPARISON: Previous study dated 05/27/2015. HISTORY: Dizziness CT DLP: 1036.0 mGycm Automated exposure control for dose reduction was used. FINDINGS: There are generalized changes of sulcal prominence and ventriculomegaly, compatible with mild atrophy . There is been previous bilateral occipital infarcts. There is diffuse periventricular white matter lucency, compatible small vessel ischemic change. There is no acute focal lesion, mass effect or midl ine shift identified. I do not see evidence of intracranial blood. There is significant vascular calc ification. There is chronic mucoperiosteal thickening involving the ethmoid air cells. There is fluid in the rig ht mastoid air cells. IMPRESSION: 1. EVIDENCE OF PREVIOUS BILATERAL OCCIPITAL INFARCT. 2. NO ACUTE INTRACRANIAL ABNORMALITY. 3. ATROPHIC CHANGE. 4. CHRONIC WHITE MATTER ISCHEMIC CHANGE. 5. CHRONIC MUCOPERIOSTEAL THICKENING INVOLVING THE ETHMOID SINUSES. 6. EVIDENCE OF ACUTE RIGHT-SIDED MASTOIDITIS.
--- NOTE | 2017-06-17 11:48 | XR ---
EXAMINATION TYPE: XR chest 2V DATE OF EXAM: 06/17/2017 HISTORY: Syncope. REFERENCE: Previous study dated 05/28/2016. FINDINGS: There is chronic, appearing elevation right hemidiaphragm. The heart is enlarged. There is mild, diffuse increased interstitial markings. These are chronic. Pleural spaces appear clear. IMPRESSION: 1. CARDIOMEGALY. 2. CHRONIC INTERSTITIAL CHANGE.
[2017-06-17] MEDS ORDERED: ASPIRIN 325 MG TAB PO STA (12:17)
[2017-06-17] MEDS: SODIUM CHLORIDE 0.9% 1,000 ML IV SCH (12:27)
[2017-06-17 12:34] LABS: Appearance,Urine Clear (Clear); Bacteria,Urine Rare /hpf; Bilirubin,Urine Negative (Negative); Glucose,Urine (UA) 4+ (Negative); Ketones,Urine Trace (Negative); Leukocyte Esterase,Urine Negative (Negative); Mucus,Urine Rare /hpf; Nitrite,Urine Negative (Negative); PH, Urine 5.5 (5.0-8.0); Particle Count 1524; Protein,Urine Trace (Negative); RBC,Urine 1 /hpf (0-5); Specific Gravity,Urine 1.023 (1.001-1.035); Squamous Epithelial Cell,Urine <1 /hpf (0-4); UA Billing (MACRO vs. MICRO) MICRO; Urobilinogen,Urine <2.0 mg/dL (<2.0); WBC,Urine 2 /hpf (0-5)
[2017-06-17] MEDS ORDERED: MORPHINE SULFATE 4 MG/ML SYRINGE IV PRN (12:44)
[2017-06-17] MEDS ORDERED: ACETAMINOPHEN TAB 325 MG TAB PO PRN (12:44)
[2017-06-17] MEDS ORDERED: ONDANSETRON 4 MG/2 ML VIAL IVP PRN (12:44)
[2017-06-17] MEDS ORDERED: NALOXONE 0.4 MG/ML 1 ML VIAL IV PRN (12:44)
[2017-06-17] MEDS ORDERED: ALBUTEROL NEBULIZED 2.5 MG/3 ML INHALATION PRN (12:46)
[2017-06-17] MEDS ORDERED: MECLIZINE 25 MG TAB PO PRN (12:46)
[2017-06-17 16:31] LABS: Glucose,Whole Blood 196 mg/dL (75-99)
[2017-06-17] MEDS ORDERED: FERROUS SULFATE 325 MG TAB PO PRN (20:33)
[2017-06-17] MEDS ORDERED: ALPRAZolam 0.25 MG TAB PO PRN (20:33)
[2017-06-17 20:48] LABS: Hemoglobin A1C 7.8 % (4.2-6.1)
[2017-06-17 20:50] LABS: Glucose,Whole Blood 204 mg/dL (75-99)
[2017-06-17] MEDS: PANTOPRAZOLE 40 MG/10 ML VIAL IVP SCH (21:33)
[2017-06-17] MEDS: INSULIN LISPRO (humaLOG) 300 UNIT/3 ML VIAL SQ SCH (21:34)
[2017-06-17] MEDS: MELATONIN 3 MG TABLET PO SCH (21:34)
[2017-06-17] MEDS: HEPARIN SODIUM,PORCINE 5,000 UNIT/ML 1 ML VIAL SQ SCH (21:34)
--- NOTE | 2017-06-17 23:34 | P.CNNES ---
History of Present Illness Consult date: 06/17/17 Reason for Consult: This patient is a 66-year-old male admitted with acute dizziness and pain. History of Present Illness: This patient is a 66-year-old right-handed white male who was in his usual state of health until early this morning. Patient was outdoors working on a ladder when he developed some symptoms of tinnitus involving both of his ears. This was shortly followed by a severe headache pain associated with left eye pain as well. The patient also noticed numbness involving his left arm and left leg. This was shortly followed by increasing weakness on his left side. The patient was now getting concerned as he does have a history of having suffered a stroke in May 2015. This stroke mostly caused visual problems for him. He has been taking one aspirin daily for treatment for recurrent stroke. The patient also has a history of having undergone a lumbar laminectomy in 2015. Unfortunately he developed an epidural abscess following this back surgery. This was drained by infectious disease. The patient states he continues to notice left-sided weakness since admission to the hospital. 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 The patient has been noticing difficulty with his walk ever since the onset of these symptoms. He also had history of bilateral strokes which does show up on his computed tomography scan of the brain. There was no evidence of acute stroke or hemorrhage based on this recent computed tomography scan of the brain. The patient also has history of probable diabetes mellitus. He is not on any specific treatment for diabetes. We would recommend he should follow-up with the primary care physician to have this further evaluated. Patient has been taking one full dose aspirin daily. On a regular basis. He is now been admitted and neurology has been consulted for further evaluation and recommendations. Review of Systems Constitutional: Denies chills, Denies fever Eyes: denies blurred vision, denies pain Ears, nose, mouth and throat: Denies headache, Denies sore throat Cardiovascular: Denies chest pain, Denies shortness of breath Respiratory: Denies cough Gastrointestinal: Denies abdominal pain, Denies diarrhea, Denies nausea, Denies vomiting Musculoskeletal: Denies myalgias Integumentary: Denies pruritus, Denies rash Neurological: Reports ataxia, Reports balance difficulties, Reports confusion, Reports convulsions, Reports headaches, Reports tingling, Reports vertigo, Denies numbness, Denies weakness Psychiatric: Denies anxiety, Denies depression Endocrine: Denies fatigue, Denies weight change Past Medical History Past Medical History: Asthma, CVA/TIA, Hearing Disorder / Deafness, Prostate Disorder, Renal Disease Additional Past Medical History / Comment(s): 05/26/16 FELL/ RT HIP FX 05/27/15 HAD STROKE -RESIDUAL HAS LOSS OF PERIPHERAL VISION. Pt fell and broke L wrist in 2013 and also had fxs in his back. In 01/2015 pt had acute epidural abscess L5-S1, acute discitis and sepsis R ankle (that eventually went systemic per pt). He had a laminectomy, discectomy and decompression L5-S1 along with I and D of an epdural abscess L5-S1. He was transferred to [facility] post op for continued tx of his sepsis. He was sent from [place] to [facility] for another I and D of the back and eventually went home on home care antibiotics. Additional HX: chronic ulcerative COLITIS, chronic diarrhea-PT STATED HIS NORM IS 3-5 DIARRHEA/WATERY STOOLS PER DAY, BPH, ARTHRITIS R ankle, , chronic stable asthma, DJD, kidney stones, asbestos exposure in the [place], UTI. Pt denies HTN now that he is off steroids and also diabetes. He also has history of Crohn's disease. 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 left wrist surgically repaired after fx-PLATE/SCREW. RT HIP TEVIN/SCREWS. Past Anesthesia/Blood Transfusion Reactions: No Reported Reaction Additional Past Anesthesia/Blood Transfusion Reaction / Comment(s): Pt states he recieved blood 02/[address] [facility] without reaction. Past Psychological History: No Psychological Hx Reported Additional Psychological History / Comment(s): Pt resides alone. DRIVES. He has 6 dogs. . He is independent. He no longer is using any home care. Pt was in the [employer] for 4 yrs.STATED LAST JOB HE WORKED WAS IN A [employer]AB[employer]IC SHOP. Smoking Status: Never smoker Past Alcohol Use History: None Reported Additional Past Alcohol Use History / Comment(s): Patient has a history of smoking marijuana half ounce per day and quit in 1998. He denies any history of smoking cigarettes. He denies any alcohol use SINCE 1975. Patient is worked in the [employer] and had exposure to asbestos. He is currently living alone with 4 dogs. Past Drug Use History: None Reported - Past Family History Father Family Medical History: Myocardial Infarction ([place]) Additional Family Medical History / Comment(s): Father of massive [place]. Mother Family Medical History: Diabetes Mellitus Medications and Allergies Home Medications Medication Instructions Recorded Confirmed Type Acetaminophen Tab [Tylenol Tab] 1,000 mg PO Q6H PRN 02/09/17 06/17/17 History Loperamide HCl [Imodium A-D] 6 mg PO DAILY@0800 02/09/17 06/17/17 History Albuterol Nebulized [Ventolin 2.5 mg INHALATION RT-Q6H PRN 06/17/17 06/17/17 History Nebulized] Aspirin 325 mg PO DAILY 06/17/17 06/17/17 History Ferrous Sulfate [Feosol] 325 mg PO DAILY PRN 06/17/17 06/17/17 History Loperamide [Imodium] 4 mg PO DAILY@1200,1800 06/17/17 06/17/17 History predniSONE 20 mg PO DAILY 06/17/17 06/17/17 History Allergies Allergy/AdvReac Type Severity Reaction Status Date / Time No Known Allergies Allergy Verified 06/17/17 12:01 Physical Examination - Vital Signs Vital Signs: Vital Signs Temp Pulse Pulse Resp BP BP Pulse Ox 06/17/17 16:00 97.0 F L 72 18 136/84 98 06/17/17 14:39 69.8 F L 73 18 149/84 98 06/17/17 14:35 72 16 136/84 98 06/17/17 14:28 69.8 F L 73 18 149/84 98 06/17/17 12:18 77 18 141/84 99 06/17/17 11:41 69 18 147/69 97 06/17/17 10:34 77 18 155/96 97 Intake and Output 06/17/17 06/17/17 06/18/17 14:59 22:59 06:59 Intake Total 725 Balance 725 Intake: IV 725 Sodium Chloride 0.9% 1, 225 000 ml @ 75 mls/hr IV . [id number] JOHN Rx#:[id number] Sodium Chloride 0.9% 500 500 ml @ 999 mls/hr IV .Q31M STA Rx#:[id number] Oral 0 Other: Voiding Method Urinal # Voids 1 Weight 95.788 kg Patient Weight 06/18/17 06:59 Weight 95.788 kg - Constitutional General appearance: average body habitus, cooperative - EENT EENT: PERRL, mucous membranes moist - Respiratory Respiratory: lungs clear, normal breath sounds - Cardiovascular Cardiovascular: regular rate, normal S1, normal S2 Extremities: no peripheral edema bilaterally - Gastrointestinal Gastrointestinal: normoactive bowel sounds - Integumentary Integumentary: normal - Neurologic Cranial nerve examination: PERRL, EOMI, VFF, ptosis, V1/V2/V3 grossly intact, face symmetric, tongue midline, intact gag reflex, intact corneal reflex, normal palatal elevation Speech examination: intact Sensorimotor examination: intact Detailed motor examination: grossly full strength in all extremities Motor examination - right side: 4/5: biceps, triceps, wrist flexion, wrist extension, supervisor laboratory, hip flexors, knee extensors, dorsiflexion, toe extension (EHL) , plantarflexion Motor examination - left side: 4/5: biceps, triceps, wrist flexion, wrist extension, supervisor laboratory, hip flexors, knee extensors, dorsiflexion, toe extension (EHL) , plantarflexion Detailed sensory examination: intact Reflex and gait examination: intact Reflexes: 1+: ankle, bicep, knee, tricep Cerebellar examination: ataxia, dysmetria Results - Laboratory Findings CBC and BMP: 06/17/17 10:40 06/17/17 10:40 Abnormal Lab Findings: Abnormal Labs 06/17/17 06/17/17 06/17/17 10:40 10:40 10:40 WBC 13.0 H Hgb 10.9 L Hct 37.0 L MCV 79.2 L MCH 23.4 L MCHC 29.5 L RDW 20.2 H Neutrophils # 11.4 H Sodium 136 L BUN 31 H Glucose 286 H POC Glucose (mg/dL) Hemoglobin A1c 7.8 H Plasma Lactic Acid Hernán Urine Protein Urine Glucose (UA) Urine Ketones Urine Blood Urine Bacteria Urine Mucus 06/17/17 06/17/17 06/17/17 11:18 12:18 15:14 WBC Hgb Hct MCV MCH MCHC RDW Neutrophils # Sodium BUN Glucose POC Glucose (mg/dL) Hemoglobin A1c Plasma Lactic Acid Hernán 2.8 H* 2.6 H* Urine Protein Trace H Urine Glucose (UA) 4+ H Urine Ketones Trace H Urine Blood Trace H Urine Bacteria Rare H Urine Mucus Rare H 06/17/17 06/17/17 16:27 20:49 WBC Hgb Hct MCV MCH MCHC RDW Neutrophils # Sodium BUN Glucose POC Glucose (mg/dL) 196 H 204 H Hemoglobin A1c Plasma Lactic Acid Hernán Urine Protein Urine Glucose (UA) Urine Ketones Urine Blood Urine Bacteria Urine Mucus Assessment and Plan Plan: This patient is a 66-year-old male who was admitted to Hospital with symptoms of dizziness and unsteady gait. He was standing on a ladder when he suddenly developed tinnitus in both ears followed by severe headache pain. He was advised to come to the emergency room for further evaluation. He was seen in the ER by Dr. Erickson. Patient was sent for computed tomography scan of the brain. CAT scan of the brain revealed evidence of old bilateral occipital stroke. No other new areas of stroke were identified. There was evidence of chronic atrophy as well. Patient was essentially admitted to the hospital. His neurological examination reveals significant dysmetria with finger-nose testing and [id number] testing on his left side. He is also complaining of the dizziness and tinnitus. These findings are suggesting vertebrobasilar and brainstem localization. We have recommended the patient undergo MRI of the brain for further evaluation for brainstem stroke. He will undergo a complete stroke evaluation. Given his history of Ojxix-Qddlphdak-Nrpuy syndrome would also consider cardiology consultation. This patient's overall prognosis at this time remains very guarded. Time with Patient: Greater than 30
[2017-06-18 02:12] LABS: Appearance,Urine Clear (Clear); Bilirubin,Urine Negative (Negative); Glucose,Urine (UA) 2+ (Negative); Ketones,Urine Trace (Negative); Leukocyte Esterase,Urine Negative (Negative); Nitrite,Urine Negative (Negative); Protein,Urine Trace (Negative); Specific Gravity,Urine 1.026 (1.001-1.035); UA Billing (MACRO vs. MICRO) CHEM; Urobilinogen,Urine <2.0 mg/dL (<2.0)
[2017-06-18] MEDS: LOPERAMIDE 2 MG CAP PO SCH ×4 (02:20→19:13)
[2017-06-18 06:09] LABS: Glucose,Whole Blood 110 mg/dL (75-99)
[2017-06-18 06:39] LABS: Anisocytosis Moderate; Basophils % (A) 0 %; CH 23.6; CHCM 29.5; Eosinophils # (A) 0.1 k/uL (0-0.7); Eosinophils % (A) 0 %; HCT 35.9 % (39.0-53.0); HDW 2.58; HGB 10.4 gm/dL (13.0-17.5); Hypochromasia Marked; Luc # (Auto) 0.16; Luc % (Auto) 1; Lymphocytes # (A) 2.3 k/uL (1.0-4.8); Lymphocytes % (A) 20 %; MCH 23.2 pg (25.0-35.0); MCHC 28.8 g/dL (31.0-37.0); MCV 80.3 fL (80.0-100.0); Mean Platelet Volume 7.3; Microcytosis Slight; Monocytes # (A) 0.6 k/uL (0-1.0); Monocytes % (A) 5 %; Neutrophils # (A) 8.4 k/uL (1.3-7.7); Neutrophils % (A) 73 %; RBC 4.47 m/uL (4.30-5.90); WBC 11.5 k/uL (3.8-10.6); WBC (Perox) 11.81
[2017-06-18 06:58] LABS: ALT 34 U/L (21-72); AST 16 U/L (17-59); Alkaline Phosphatase 83 U/L (38-126); Anion Gap 5 mmol/L; Blood Urea Nitrogen 29 mg/dL (9-20); Calcium 8.7 mg/dL (8.4-10.2); Carbon Dioxide 25 mmol/L (22-30); Chloride 105 mmol/L (98-107); Cholesterol 213 mg/dL (<200); Glucose 104 mg/dL (74-99); HDL Cholesterol 95 mg/dL (40-60); Non-African American GFR(MDRD) >60 (>60 ml/min/1.73 sqM); Potassium 4.2 mmol/L (3.5-5.1); Sodium 135 mmol/L (137-145); Total Bilirubin 0.3 mg/dL (0.2-1.3)
[2017-06-18] MEDS: INSULIN LISPRO (humaLOG) 300 UNIT/3 ML VIAL SQ SCH ×4 (06:59→21:14)
--- NOTE | 2017-06-18 07:09 | HP ---
HISTORY AND PHYSICAL DATE OF ADMISSION: 06/17/2017. CHIEF COMPLAINT: Dizziness and weakness. HISTORY: This 66-year-old gentleman with a past medical history of multiple medical problems including CVA, TIA, history of epidural abscess, history of DJD being followed by Dr. Mejía in the outpatient setting apparently had the previous left-sided occipital stroke causing right-sided hemianopia. Currently the patient was working on a ceiling inside the home and after some time the patient felt dizzy and the room was spinning around him. Patient felt weak and tired and patient unable to walk also. The patient went to [facility] and admitted for further evaluation and treatment. CT scan of the brain showed bilateral occipital infarcts presumed to be old and patient also complaining of weakness and more than weakness and incoordination of the left upper limb more than the right upper limb also. There is no history of fever, rigors. No history of headache, loss of consciousness or seizures. The patient is [facility] [place]. PAST MEDICAL HISTORY: Past medical history of Crohn's, history of epidural abscess, CVA, TIA. History of prostate disease. History of asthma. HOME MEDICATIONS: 1. Imodium 4 mg daily. 2. Imodium AD 6 mg daily. 3. Heparin 120 mg daily. 4. Iron sulfate 320 mg daily p.r.n. 5. Aspirin 320 mg daily. 6. Ventolin 2.5 q.6h. 7. Tylenol 1000 mg q.6h p.r.n. ALLERGIES: None. FAMILY HISTORY: History of myocardial infarction. SOCIAL HISTORY: No history of smoking. No history of alcohol intake. REVIEW OF SYSTEMS: ENT: No diminished vision. No diminished hearing. Cardiovascular: No angina. RESPIRATORY: As mentioned earlier. GI: No nausea or vomiting. no dysuria or hematuria. Central nervous system: As mentioned earlier. Allergy/Immunology: Negative. Musculoskeletal as mentioned earlier. Hematology/Oncology: No history of anemia. Endocrine no history of diabetes or hypothyroidism. Constitutional: As mentioned earlier. Dermatology: Negative. Rheumatology: Negative. Psychiatric: As mentioned earlier. PHYSICAL EXAMINATION: Alert and oriented times two. Pulse 72, blood pressure 130/84, respiration 18, temperature 97 degrees, pulse ox 98% on 2 L. HEENT: Conjunctivae normal. Oral mucosa moist. Neck is no jugular venous distention. No carotid bruit. No lymph node enlargement. No thyroid enlargement. CARDIOVASCULAR: S1, S2. No S3, no S4. Respiratory: Breath sounds diminished at the bases. No rhonchi. No crackles. ABDOMEN: Soft, nontender. No mass. No hepatosplenomegaly. Legs no edema. No swelling. NERVOUS SYSTEM: Higher functions as mentioned earlier. Cranial nerves no nystagmus. Visual difficulties in the right field on the right eye present. Otherwise moves all 4 limbs. Power 5 out of 5 significant [id number] ataxia present on both upper limbs and lower limbs. Left more than the right. Sensation no abnormality. Skin no ulcer, rash, bleeding. Lymphatics: No lymph nodes palpable in the neck, axillae or groin. Joints no active deforming arthropathy. LAB: At this time, CT scan noted. WBC 13, hemoglobin 10.9, glucose 286. ASSESSMENT: 1. Dizziness and weakness possibly vertebrobasilar stroke. 2. Gait dysfunction. 3. History of previous old left occipital stroke. 4. Increased WBC. 5. Anemia, microcytic undetermined etiology. Possibly anemia of chronic disease. 6. History of degenerative joint disease. 7. History of asthma. 8. History of Crohn's colitis. 9. History of L5-S1 epidural abscess. 10.Chronic diarrhea. 11.History of Methicillin-resistant Staphylococcus aureus. 12.On steroids. 13.FULL CODE. RECOMMENDATION AND DISCUSSION: This 66-year-old gentleman who presented with multiple complex medical issues, we will monitor the patient closely. Continue the current management, symptomatic treatment. I will obtain neuro checks. Neurology evaluation. MRI with contrast and also complete neurovascular work up including 2D echo and carotid Doppler. Resume home medications. DVT prophylaxis. Otherwise monitor blood sugars closely. Antiplatelet agents. Check lipids. Monitor blood pressure closely. Guarded prognosis because of multiple complex medical issues. Further recommendations to follow. Copy of dictation being forwarded to Dr. Mejía who is the primary physician. Discussed with the patient who understands and agrees. Discussed with staff. MMODL / IJN: [id number] / MTDPolo
[2017-06-18] MEDS: PANTOPRAZOLE 40 MG/10 ML VIAL IVP SCH (08:10)
[2017-06-18] MEDS: SODIUM CHLORIDE 0.9% 1,000 ML IV SCH ×2 (08:10→16:06)
[2017-06-18] MEDS: HEPARIN SODIUM,PORCINE 5,000 UNIT/ML 1 ML VIAL SQ SCH ×2 (08:10→21:14)
[2017-06-18] MEDS: ASPIRIN 325 MG TAB PO SCH (08:10)
--- NOTE | 2017-06-18 10:08 | US ---
EXAMINATION TYPE: US carotid duplex BILAT DATE OF EXAM: 06/18/2017 COMPARISON: NONE CLINICAL HISTORY: stroke. EXAM MEASUREMENTS: RIGHT: Peak Systolic Velocity (PSV) cm/sec ----- Right CCA: 56.6 ----- Right ICA: 73.2 ----- Right ECA: 98.4 ICA/CCA ratio: 1.3 RIGHT: End Diastole cm/sec ----- Right CCA: 14.1 ----- Right ICA: 28.7 ----- Right ECA: 9.4 LEFT: Peak Systolic Velocity (PSV) cm/sec ----- Left CCA: 61.1 ----- Left ICA: 52.7 ----- Left ECA: 55.5 ICA/CCA ratio: 0.9 LEFT: End Diastole cm/sec ----- Left CCA: 18.8 ----- Left ICA: 24.2 ----- Left ECA: 6.2 VERTEBRALS (direction of flow): Right Vertebral: Antegrade Left Vertebral: Antegrade Rhythm: Normal No significant velocity elevations IMPRESSION: I DO NOT SEE EVIDENCE OF A HEMODYNAMICALLY SIGNIFICANT STENOSIS IN EITHER CAROTID SYSTEM. Criteria for Assigning % of Stenosis / Diameter reduction (Estimation based on the indirect measurements of the internal carotid artery velocities (ICA PSV). 1. Normal (no stenosis)=ICA PSV < 125 cm/s: ratio < 2.0: ICA EDV<40 cm/s. 2. Less than 50% stenosis=ICA PSV < 125 cm/s: ratio < 2.0: ICA EDV<40 cm/s. 3. 50 to 69% stenosis=ICA PSV of 125 to 230 cm/s: ration 2.0 ? 4.0: ICA EDV 40-100 cm/s. 4. Greater than 70% stenosis to near occlusion= ICA PSV > 230 cm/s: ratio > 4.0: ICA EDV > 100 cm/s. 5. Near occlusion= ICA PSV velocities may be low or undetectable: variable ratio and ICA EDV. 6. Total occlusion=unable to detect flow.
[2017-06-18] MEDS: predniSONE 20 MG TAB PO SCH (10:26)
[2017-06-18 11:50] LABS: Glucose,Whole Blood 127 mg/dL (75-99)
[2017-06-18] MEDS: HYDROcodone/APAP 5-325MG 1 EACH TAB PO PRN (12:57)
[2017-06-18 16:42] LABS: Glucose,Whole Blood 154 mg/dL (75-99)
--- NOTE | 2017-06-18 19:36 | PN ---
PROGRESS NOTE DATE OF SERVICE: 06/18/2017 INTERVAL HISTORY: This 66-year-old gentleman who was admitted with dizziness and weakness and possibly secondary vertebral basilar stroke is being closely monitored at this time. CT scan showed bilateral occipital infarct possibly old. Neurology Dr. Mary Teixeira is following the patient. Patient is still dizzy and patient still having incoordination of the left arm. The patient also had difficulty in walking also. The lipid levels are elevated as well as blood sugars. PAST MEDICAL: Reviewed. REVIEW OF SYSTEMS: Cardiovascular system: No angina. Respirations: No cough. : As mentioned earlier. : No dysuria. Nervous system as mentioned earlier. CURRENT MEDICATIONS: Reviewed and include: 1. Tylenol 650 q.4 hours. 2. [place] p.r.n. 3. Ventolin p.r.n. 4. Xanax 0.5 t.i.d. 5. Aspirin 320 mg daily. 6. Iron sulfate 325 daily. 7. Heparin 5000 subcutaneous b.i.d. 8. Humalog to scale. 9. Imodium. 10.Antivert 25 mg t.i.d. p.r.n. 11.Melatonin. 13.Narcan. 14.Zofran. 15.Protonix 40 mg IV daily. PHYSICAL EXAM: Patient is alert, oriented x3. Pulse 67, blood pressure 132/81, respiration 18 , temp 97.4, pulse ox 94% on 2 L. HEENT: Conjunctivae normal. Oral mucosa moist. Neck is no jugular venous distention. No carotid bruit. No lymph node enlargement. CARDIOVASCULAR: S1, S2. No S3, no S4. Respiratory: Breath sounds diminished at the bases. No rhonchi. No crackles. ABDOMEN: Soft, nontender. No mass palpable. Legs no edema. No swelling. NERVOUS SYSTEM: Higher functions as mentioned earlier. Cranial nerves right visual defect especially in the right eye present otherwise power is 5 out of 5 significant incoordination, cerebellar signs on the left more than the right upper and lower limbs. Gait is dysfunctional. Skin: No ulcer, rash, bleeding. Lymphatics: No lymph nodes palpable in the neck, axillae or groin. LABS: WBC 7.8, hemoglobin 10.4, sodium 135, 158, cholesterol 213. ASSESSMENT: 1. Dizziness and weakness possible vertebrobasilar stroke. 2. Gait dysfunction. 3. Hypercholesteremia. 4. History of previous old left occipital stroke. 5. Increased WBC. 6. Anemia, microcytic undetermined etiology. Possibly anemia of chronic disease. 7. History of degenerative joint disease. 8. History of asthma. 9. History of Crohn's colitis. 10.History of L5-S1 epidural abscess. 11.Chronic diarrhea. 12.History of Methicillin-resistant Staphylococcus aureus. 13.On steroids. 14.FULL CODE. RECOMMENDATIONS/DISCUSSION: Recommend to continue current medications and symptomatic treatment otherwise. Continue antiplatelet agents. I will add Lipitor to the current regimen. DVT prophylaxis. Neurology evaluation appreciated. MRI scan. Monitor blood pressure closely. MRI of the brain with contrast required because to elucidate any possibility of any new stroke happening in the posterior circulation. Once again the prognosis guarded. Discussed with the patient and family. Understands and agrees. Further recommendations to follow. SHANDA / SATINDER: [id number] / MTDD
[2017-06-18 20:55] LABS: Glucose,Whole Blood 184 mg/dL (75-99)
[2017-06-18] MEDS: MELATONIN 3 MG TABLET PO SCH (21:13)
[2017-06-18] MEDS: ATORVASTATIN 40 MG TAB PO SCH (21:14)
[2017-06-19 05:59] LABS: Glucose,Whole Blood 113 mg/dL (75-99)
[2017-06-19] MEDS: INSULIN LISPRO (humaLOG) 300 UNIT/3 ML VIAL SQ SCH ×4 (05:59→21:02)
[2017-06-19 06:15] LABS: Anisocytosis Slight; Basophils % (A) 0 %; CH 23.1; CHCM 28.6; Eosinophils # (A) 0.1 k/uL (0-0.7); Eosinophils % (A) 1 %; HCT 38.7 % (39.0-53.0); HDW 2.51; HGB 11.3 gm/dL (13.0-17.5); Hypochromasia Marked; Luc # (Auto) 0.22; Luc % (Auto) 2; Lymphocytes % (A) 15 %; MCH 23.7 pg (25.0-35.0); MCHC 29.2 g/dL (31.0-37.0); MCV 81.1 fL (80.0-100.0); Mean Platelet Volume 6.5; Microcytosis Slight; Monocytes # (A) 0.7 k/uL (0-1.0); Monocytes % (A) 5 %; Neutrophils # (A) 10.1 k/uL (1.3-7.7); Neutrophils % (A) 77 %; RBC 4.78 m/uL (4.30-5.90); RDW 19.1 % (11.5-15.5); WBC 13.1 k/uL (3.8-10.6); WBC (Perox) 13.88
[2017-06-19 06:31] LABS: Anion Gap 9 mmol/L; Blood Urea Nitrogen 23 mg/dL (9-20); Calcium 8.8 mg/dL (8.4-10.2); Carbon Dioxide 24 mmol/L (22-30); Chloride 101 mmol/L (98-107); Glucose 109 mg/dL (74-99); Non-African American GFR(MDRD) >60 (>60 ml/min/1.73 sqM); Potassium 4.1 mmol/L (3.5-5.1); Sodium 134 mmol/L (137-145)
--- NOTE | 2017-06-19 06:53 | P.PN ---
Subjective Patient is beign evaluatied for acute right hemispheric stroke. Patient was initially admitted with symptoms of dizziness and weakness. His clinical history suggests possibility of vertebrobasilar insufficiency versus stroke. Patient scheduled to undergo MRI of the brain tomorrow for further evaluation. Patient denies any new symptoms of weakness or headache. He is to continue on his current medications which include antiplatelet agent at this time he continues to have difficulty walking due to unsteady gait and mild ataxia. He does have history of previous old stroke. This stroke risk factors include hypercholesterolemia, hypertension, and previous stroke. His blood pressures are being closely monitored. He underwent a carotid Doppler ultrasound today which reveals no evidence of significant carotid artery stenosis. We will continue close neurological follow-up for this patient during this admission. He is scheduled to undergo MRI of the brain for further assessment tomorrow. His overall prognosis remains guarded. Objective - Vital Signs Vital signs: Vital Signs Temp 97.9 F 06/18/17 15:00 Pulse 64 06/18/17 15:00 Resp 18 06/18/17 15:00 BP 132/78 06/18/17 15:00 Pulse Ox 97 06/18/17 15:00 Intake & Output 06/18/17 06/18/17 06/19/17 06:59 18:59 06:59 Intake Total 1325 1617 Output Total 700 875 Balance 625 742 Weight 99 kg Intake: IV 1325 900 Sodium Chloride 0.9% 1, 825 900 000 ml @ 75 mls/hr IV . [id number] JOHN Rx#:[id number] Sodium Chloride 0.9% 500 500 ml @ 999 mls/hr IV .Q31M STA Rx#:[id number] Oral 717 Output: Urine 700 875 Other: Voiding Method Urinal # Voids 2 3 # Bowel Movements 1 1 - Exam Physical examination: PHYSICAL EXAMINATION: Patient is resting comfortably in bed. VITAL SIGNS: Blood pressure is [123/72]. Heart rate is [76]. Respiration is [ 1697.7]. Temperature is []. HEENT: Head is atraumatic, neck is supple, there were no carotid bruits. CHEST: Lungs are clear to auscultation and percussion. CARDIAC: S1, S2 normal rate and rhythm. There is no murmur. ABDOMEN: Soft and nontender. Bowel sounds are present. EXTREMITIES: There is no pedal edema. Peripheral pulses are present. Neurological examination: Patient's neurological examination is unchanged from yesterday. - Labs CBC & Chem 7: 06/19/17 05:30 06/19/17 05:28 Labs: Abnormal Lab Results - Last 24 Hours (Table) 06/17/17 06/17/17 06/18/17 Range/Units 10:40 20:49 02:00 WBC (3.8-10.6) k/uL Hgb (13.0-17.5) gm/dL Hct (39.0-53.0) % MCH (25.0-35.0) pg MCHC (31.0-37.0) g/dL RDW (11.5-15.5) % Neutrophils # (1.3-7.7) k/uL Sodium (137-145) mmol/L BUN (9-20) mg/dL Glucose (74-99) mg/dL POC Glucose (mg/dL) 204 H (75-99) mg/dL Hemoglobin A1c 7.8 H (4.2-6.1) % AST (17-59) U/L Total Protein (6.3-8.2) g/dL Albumin (3.5-5.0) g/dL Triglycerides (<150) mg/dL Cholesterol (<200) mg/dL HDL Cholesterol (40-60) mg/dL Urine Protein Trace H (Negative) Urine Glucose (UA) 2+ H (Negative) Urine Ketones Trace H (Negative) 06/18/17 06/18/17 06/18/17 Range/Units 06:07 06:18 06:18 WBC 11.5 H (3.8-10.6) k/uL Hgb 10.4 L (13.0-17.5) gm/dL Hct 35.9 L (39.0-53.0) % MCH 23.2 L (25.0-35.0) pg MCHC 28.8 L (31.0-37.0) g/dL RDW 20.0 H (11.5-15.5) % Neutrophils # 8.4 H (1.3-7.7) k/uL Sodium 135 L (137-145) mmol/L BUN 29 H (9-20) mg/dL Glucose 104 H (74-99) mg/dL POC Glucose (mg/dL) 110 H (75-99) mg/dL Hemoglobin A1c (4.2-6.1) % AST 16 L (17-59) U/L Total Protein 6.0 L (6.3-8.2) g/dL Albumin 3.1 L (3.5-5.0) g/dL Triglycerides 158 H (<150) mg/dL Cholesterol 213 H (<200) mg/dL HDL Cholesterol 95 H (40-60) mg/dL Urine Protein (Negative) Urine Glucose (UA) (Negative) Urine Ketones (Negative) 06/18/17 06/18/17 Range/Units 11:44 16:38 WBC (3.8-10.6) k/uL Hgb (13.0-17.5) gm/dL Hct (39.0-53.0) % MCH (25.0-35.0) pg MCHC (31.0-37.0) g/dL RDW (11.5-15.5) % Neutrophils # (1.3-7.7) k/uL Sodium (137-145) mmol/L BUN (9-20) mg/dL Glucose (74-99) mg/dL POC Glucose (mg/dL) 127 H 154 H (75-99) mg/dL Hemoglobin A1c (4.2-6.1) % AST (17-59) U/L Total Protein (6.3-8.2) g/dL Albumin (3.5-5.0) g/dL Triglycerides (<150) mg/dL Cholesterol (<200) mg/dL HDL Cholesterol (40-60) mg/dL Urine Protein (Negative) Urine Glucose (UA) (Negative) Urine Ketones (Negative) Assessment and Plan (1) Vertebrobasilar insufficiency Status: Acute Code(s): G45.0 - VERTEBRO-BASILAR ARTERY SYNDROME (2) Dehydration Status: Acute Code(s): E86.0 - DEHYDRATION (3) Diabetes mellitus, new onset Status: Acute Code(s): E11.9 - TYPE 2 DIABETES MELLITUS WITHOUT COMPLICATIONS (4) Vertigo Status: Acute Code(s): R42 - DIZZINESS AND GIDDINESS (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 He was standing on a ladder when he suddenly developed tinnitus in both ears followed by severe headache pain. He was advised to come to the emergency room for further evaluation. He was seen in the ER by Dr. Erickson. Patient was sent for computed tomography scan of the brain. CAT scan of the brain revealed evidence of old bilateral occipital stroke. No other new areas of stroke were identified. There was evidence of chronic atrophy as well. Patient was essentially admitted to the hospital. His neurological examination reveals significant dysmetria with finger-nose testing and [id number] testing on his left side. He is also complaining of the dizziness and tinnitus. These findings are suggesting vertebrobasilar and brainstem localization. We have recommended the patient undergo MRI of the brain for further evaluation for brainstem stroke. He will undergo a complete stroke evaluation. Given his history of Fcnxk-Wkoyldemy-Ldrvq syndrome would also consider cardiology consultation. Patient will be scheduled for MRI of the brain tomorrow. His neurological examination is unchanged from yesterday. This patient's overall prognosis at this time remains very guarded.
[2017-06-19] MEDS: predniSONE 20 MG TAB PO SCH (09:32)
[2017-06-19] MEDS: LOPERAMIDE 2 MG CAP PO SCH ×4 (09:33→17:22)
[2017-06-19] MEDS: PANTOPRAZOLE 40 MG/10 ML VIAL IVP SCH (09:33)
[2017-06-19] MEDS: HEPARIN SODIUM,PORCINE 5,000 UNIT/ML 1 ML VIAL SQ SCH ×2 (09:33→21:02)
[2017-06-19] MEDS: HYDROcodone/APAP 5-325MG 1 EACH TAB PO PRN (09:43)
[2017-06-19 11:30] LABS: Glucose,Whole Blood 138 mg/dL (75-99)
[2017-06-19 11:45] VITALS: BMI 29.0
[2017-06-19] MEDS: ASPIRIN 325 MG TAB PO SCH (12:05)
--- NOTE | 2017-06-19 15:29 | MR ---
EXAMINATION TYPE: MR brain wo/w con DATE OF EXAM: 06/19/2017 COMPARISON: CT 06/17/2017 and 05/27/2015 HISTORY: 66-year-old male Headache, vertigo, and nausea, possible left brain stem stroke. TECHNIQUE: Multiplanar, multisequence images of the brain and brainstem were acquired before and aft er administration of 9 mL IV Gadavist. Diffusion weighted imaging is performed. Fast brain protocol was utilized. FINDINGS: Diffusion-weighted sequence shows a large area of restricted diffusion involving the left superior ce rebellar hemisphere. There is a punctate bright signal focus just below, axial image 64 and on the co ntralateral side as well, axial image 80. Along the supratentorium, there are 2 foci of bright signal within the deep white matter centrum semi ovale and one focus in the subcortical left parietal lobe. All of these areas show bright T2/FLAIR weighted signal compatible with injury greater than 6 hours i n duration. No postcontrast enhancement. Old encephalomalacia and gliosis within the right parieto-occipital and left occipital lobes and mode rate scattered burden of T2 bright white matter change in both cerebral hemispheres. Opacification of the right greater than left mastoid air cells. Mild generalized volume loss. No hydrocephalus, midline shift, or extra-axial fluid collection. Major intracranial flow voids appear maintained dural venous sinuses are patent. IMPRESSION: 1. Large acute infarct of greater than 6 hours duration involving the left superior cerebellar hemisp here. 2. A few additional scattered small foci of acute ischemia such as in the right centrum semiovale, willis bcortical white matter of the left parietal lobe, and bilateral cerebellar hemispheres. Correlate for embolic phenomenon. 3. No significant mass effect or midline shift at this time. 4. Old right parieto-occipital and left occipital lobe infarcts. Background of moderate scattered ebony nges of chronic small vessel ischemic disease. 5. Trapped fluid within the right greater than left mastoid air cells. Correlate for any mastoid pain that was suggest mastoiditis.
[2017-06-19 16:37] LABS: Glucose,Whole Blood 210 mg/dL (75-99)
--- NOTE | 2017-06-19 17:27 | P.PN ---
Subjective Date of service 06/19/2017. Personal being dictated for Dr. Francois. Interval history: This a 66-year-old gentleman admitted with dizziness, weakness , gait dysfunction, possible vertebral basilar CVA and multiple other medical issues. Carotid Doppler reporting no hemodynamic significant stenosis. MRI pending. Denies any new focal deficits, complains of limited chronic right peripheral vision. Denies headache. No seizure activity. Complains of weakness and incoordination of left upper limb. Denies chest pain, palpitations and increased shortness of breath. Objective - Vital Signs Vital signs: Vital Signs Temp 96.2 F L 06/19/17 08:00 Pulse 98 06/19/17 08:00 Resp 16 06/19/17 11:45 BP 144/84 06/19/17 08:00 Pulse Ox 96 06/19/17 08:00 Intake & Output 06/18/17 06/19/17 06/19/17 18:59 06:59 18:59 Intake Total 1617 222 Output Total 875 620 400 Balance 968 -554 -386 Weight 97 kg 97 kg Intake: IV 900 Sodium Chloride 0.9% 1, 900 000 ml @ 75 mls/hr IV . [id number] JOHN Rx#:[id number] Oral 717 222 Output: Urine 875 620 400 Other: Voiding Method Urinal Urinal # Voids 3 # Bowel Movements 1 2 - Exam PHYSICAL EXAM: VITAL SIGNS: As above[] GENERAL: Sitting up in bed, no acute distress, visiting with family and family' s canines. HEENT: Conjunctivae normal. eyes normal. Oral mucosa moist. NECK: No JVD. No thyroid enlargement. No LNs CARDIOVASCULAR: S1, S2 muffled. No murmur RESPIRATION: Breath sounds diminished in the bases. No rhonchi or crackles. No bronchial breathing. ABDOMEN: Soft, nontender . No guarding. no masses palpable. No ascites, No hepatosplenomegaly.Bowel sounds heard. LEGS: No edema. no swelling PSYCHIATRY: Alert and oriented -3, mood and affect normal. NERVOUS SYSTEM: Cranial N 2-12 grossly normal. No facial asymmetry, speech fluent and appropriate, Moves all 4 limbs. Chronic right peripheral vision difficulties. Diffuse weakness ; left ipjtzj-[id number]-wtwo to finger ataxia / incoordination present. No sensory deficit. Skin: no ulcer no rash Joints: No active swelling. No inflammation. Lymphatic system. No LN neck axilla or groin. - Labs CBC & Chem 7: 06/19/17 05:30 06/19/17 05:28 Labs: Abnormal Lab Results - Last 24 Hours (Table) 06/18/17 06/19/17 06/19/17 Range/Units 20:54 05:28 05:30 WBC 13.1 H (3.8-10.6) k/uL Hgb 11.3 L (13.0-17.5) gm/dL Hct 38.7 L (39.0-53.0) % MCH 23.7 L (25.0-35.0) pg MCHC 29.2 L (31.0-37.0) g/dL RDW 19.1 H (11.5-15.5) % Neutrophils # 10.1 H (1.3-7.7) k/uL Sodium 134 L (137-145) mmol/L BUN 23 H (9-20) mg/dL Glucose 109 H (74-99) mg/dL POC Glucose (mg/dL) 184 H (75-99) mg/dL 06/19/17 06/19/17 06/19/17 Range/Units 05:57 11:26 16:32 WBC (3.8-10.6) k/uL Hgb (13.0-17.5) gm/dL Hct (39.0-53.0) % MCH (25.0-35.0) pg MCHC (31.0-37.0) g/dL RDW (11.5-15.5) % Neutrophils # (1.3-7.7) k/uL Sodium (137-145) mmol/L BUN (9-20) mg/dL Glucose (74-99) mg/dL POC Glucose (mg/dL) 113 H 138 H 210 H (75-99) mg/dL Assessment and Plan Plan: 1. Dizziness, weakness, possibly vertebrobasilar stroke 2. Gait dysfunction 3. History of old left occipital stroke 4. Leukocytosis 5. Anemia, microcytic of undetermined etiology possibly of chronic disease 6. Degenerative joint disease Plan: Continue on current medication regime , antiplatelets, monitoring and symptomatic treatment. Neuro workup in progress. MRI results pending. Follow closely with neurology. GI prophylaxis in place. The impression and plan of care has been dictated as directed. : I performed a H&P examination of this patient and discussed the same with the dictator. I agree with the dictator's note. Any additional findings/opinions/ etc. will be noted.
--- NOTE | 2017-06-19 19:02 | ECHOF ---
Referral Reason:Stroke MEASUREMENTS -------- HEIGHT: 180.3 cm WEIGHT: 96.6 kg BP: 146/81 MV EXCURSION: 12.148 mm (> 18.000) MV EF SLOPE: 58 mm/s (70 - 150) EPSS: 1.7 cm MV E Daquan: 0.59 m/s MV DecT: 197 ms MV A Daquan: 0.81 m/s MV E/A Ratio: 0.73 RAP: 5.00 mmHg RVSP: 9.35 mmHg FINDINGS -------- Sinus rhythm. This was a technically difficult study with suboptimal views. LV FUNCTION IS PROBABLY NORMAL, TDS The RV was not well visualized. The left atrium was not well visualized. The right atrium was not well visualized. 1.5mg of Definity was utilized for enhancement of images The aortic valve was not well visualized. The mitral valve was not well visualized. The tricuspid valve was not well visualized. The pulmonic valve was not well visualized. CONCLUSIONS -------- 1. Sinus rhythm. 2. The tricuspid valve was not well visualized. 3. The pulmonic valve was not well visualized. 4. This was a technically difficult study with suboptimal views. 5. Unable to comment on EF due to poor images with definity. 6. The RV was not well visualized. 7. The left atrium was not well visualized. 8. The right atrium was not well visualized. 9. 1.5mg of Definity was utilized for enhancement of images 10. The aortic valve was not well visualized. 11. The mitral valve was not well visualized. SUPERVISOR [employer]: Brianne Daley RDCS
[2017-06-19 20:38] LABS: Glucose,Whole Blood 148 mg/dL (75-99)
[2017-06-19] MEDS: ATORVASTATIN 40 MG TAB PO SCH (21:02)
[2017-06-19] MEDS: MELATONIN 3 MG TABLET PO SCH (21:02)
--- NOTE | 2017-06-19 23:12 | P.PN ---
Subjective Patient is beign evaluatied for acute right hemispheric stroke. Patient was initially admitted with symptoms of dizziness and weakness. His clinical history suggests possibility of vertebrobasilar insufficiency versus stroke. Patient scheduled to undergo MRI of the brain tomorrow for further evaluation. Patient denies any new symptoms of weakness or headache. He is to continue on his current medications which include antiplatelet agent at this time he continues to have difficulty walking due to unsteady gait and mild ataxia. He does have history of previous old stroke. This stroke risk factors include hypercholesterolemia, hypertension, and previous stroke. His blood pressures are being closely monitored. He underwent a carotid Doppler ultrasound today which reveals no evidence of significant carotid artery stenosis. We will continue close neurological follow-up for this patient during this admission. He is scheduled to undergo MRI of the brain for further assessment today. His MRI results were reviewed today with the patient. He has suffered a large left cerebellar stroke. This is explained his left-sided dysmetria. Given the large extent of the stroke he will require PTOT in subacute rehab at the time of discharge. His overall prognosis at this time remains guarded. His overall prognosis remains guarded. Objective - Vital Signs Vital signs: Vital Signs Temp 96.2 F L 06/19/17 08:00 Pulse 85 06/19/17 16:00 Resp 16 06/19/17 16:00 BP 134/90 06/19/17 16:00 Pulse Ox 94 L 06/19/17 16:00 Intake & Output 06/19/17 06/19/17 06/20/17 06:59 18:59 06:59 Intake Total 444 Output Total 620 400 Balance -620 44 Weight 97 kg 97 kg Intake: Oral 444 Output: Urine 620 400 Other: Voiding Method Urinal Urinal # Bowel Movements 2 - Exam Physical examination: PHYSICAL EXAMINATION: Patient is resting comfortably in bed. VITAL SIGNS: Blood pressure is [134/90]. Heart rate is [85]. Respiration is [16] . Temperature is [96.2]. HEENT: Head is atraumatic, neck is supple, there were no carotid bruits. CHEST: Lungs are clear to auscultation and percussion. CARDIAC: S1, S2 normal rate and rhythm. There is no murmur. ABDOMEN: Soft and nontender. Bowel sounds are present. EXTREMITIES: There is no pedal edema. Peripheral pulses are present. Neurological examination: Patient's neurological examination is unchanged from yesterday. - Labs CBC & Chem 7: 06/19/17 05:30 06/19/17 05:28 Labs: Abnormal Lab Results - Last 24 Hours (Table) 06/18/17 06/19/17 06/19/17 Range/Units 20:54 05:28 05:30 WBC 13.1 H (3.8-10.6) k/uL Hgb 11.3 L (13.0-17.5) gm/dL Hct 38.7 L (39.0-53.0) % MCH 23.7 L (25.0-35.0) pg MCHC 29.2 L (31.0-37.0) g/dL RDW 19.1 H (11.5-15.5) % Neutrophils # 10.1 H (1.3-7.7) k/uL Sodium 134 L (137-145) mmol/L BUN 23 H (9-20) mg/dL Glucose 109 H (74-99) mg/dL POC Glucose (mg/dL) 184 H (75-99) mg/dL 06/19/17 06/19/17 06/19/17 Range/Units 05:57 11:26 16:32 WBC (3.8-10.6) k/uL Hgb (13.0-17.5) gm/dL Hct (39.0-53.0) % MCH (25.0-35.0) pg MCHC (31.0-37.0) g/dL RDW (11.5-15.5) % Neutrophils # (1.3-7.7) k/uL Sodium (137-145) mmol/L BUN (9-20) mg/dL Glucose (74-99) mg/dL POC Glucose (mg/dL) 113 H 138 H 210 H (75-99) mg/dL Assessment and Plan (1) Vertebrobasilar insufficiency Status: Acute Code(s): G45.0 - VERTEBRO-BASILAR ARTERY SYNDROME (2) Dehydration Status: Acute Code(s): E86.0 - DEHYDRATION (3) Diabetes mellitus, new onset Status: Acute Code(s): E11.9 - TYPE 2 DIABETES MELLITUS WITHOUT COMPLICATIONS (4) Vertigo Status: Acute Code(s): R42 - DIZZINESS AND GIDDINESS (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 He was standing on a ladder when he suddenly developed tinnitus in both ears followed by severe headache pain. He was advised to come to the emergency room for further evaluation. He was seen in the ER by Dr. Erickson. Patient was sent for computed tomography scan of the brain. CAT scan of the brain revealed evidence of old bilateral occipital stroke. No other new areas of stroke were identified. There was evidence of chronic atrophy as well. Patient was essentially admitted to the hospital. His neurological examination reveals significant dysmetria with finger-nose testing and [id number] testing on his left side. He is also complaining of the dizziness and tinnitus. These findings are suggesting vertebrobasilar and brainstem localization. We have recommended the patient undergo MRI of the brain for further evaluation for brainstem stroke. Patient underwent MRI of the brain today. We reviewed the results as well as the films and the MRI today. MRI reveals a large left cerebellar stroke. We did discuss the findings today with the patient and there was concern he may have embolic stroke. Patient states that last year he was seen for this previous stroke and did undergo SALINAS procedure. This he reports was normal with no evidence of PFO or atrial thrombus. Patient will like to hold off on repeating SALINAS procedure at this time. Patient is to continue with his current medications for treatment of the acute stroke. He should be further evaluated by PT OT for possible inpatient rehab placement. We will continue to monitor his progress closely during this admission.
[2017-06-20 01:33] LABS: Potassium 3.9 mmol/L (3.5-5.1)
[2017-06-20 06:21] LABS: Anion Gap 9 mmol/L; Blood Urea Nitrogen 33 mg/dL (9-20); Calcium 8.9 mg/dL (8.4-10.2); Carbon Dioxide 21 mmol/L (22-30); Chloride 100 mmol/L (98-107); Glucose 106 mg/dL (74-99); Non-African American GFR(MDRD) >60 (>60 ml/min/1.73 sqM); Sodium 130 mmol/L (137-145)
[2017-06-20 06:26] LABS: Glucose,Whole Blood 109 mg/dL (75-99)
[2017-06-20] MEDS: INSULIN LISPRO (humaLOG) 300 UNIT/3 ML VIAL SQ SCH ×4 (06:27→21:04)
[2017-06-20 07:31] LABS: Anisocytosis Slight; Basophils % (A) 0 %; CH 23.8; CHCM 30.3; Eosinophils # (A) 0.1 k/uL (0-0.7); Eosinophils % (A) 0 %; HCT 41.3 % (39.0-53.0); HDW 2.57; HGB 12.1 gm/dL (13.0-17.5); Hypochromasia Moderate; Luc # (Auto) 0.15; Luc % (Auto) 1; Lymphocytes # (A) 2.1 k/uL (1.0-4.8); Lymphocytes % (A) 15 %; MCH 23.1 pg (25.0-35.0); MCHC 29.3 g/dL (31.0-37.0); MCV 78.9 fL (80.0-100.0); Mean Platelet Volume 7.1; Microcytosis Slight; Monocytes # (A) 0.9 k/uL (0-1.0); Monocytes % (A) 6 %; Neutrophils # (A) 10.5 k/uL (1.3-7.7); Neutrophils % (A) 77 %; RBC 5.24 m/uL (4.30-5.90); RDW 19.9 % (11.5-15.5); WBC 13.7 k/uL (3.8-10.6); WBC (Perox) 13.48
[2017-06-20] MEDS: PANTOPRAZOLE 40 MG/10 ML VIAL IVP SCH (09:20)
[2017-06-20] MEDS: HEPARIN SODIUM,PORCINE 5,000 UNIT/ML 1 ML VIAL SQ SCH ×2 (09:20→21:02)
[2017-06-20] MEDS: predniSONE 20 MG TAB PO SCH (09:20)
[2017-06-20] MEDS: ASPIRIN 325 MG TAB PO SCH (09:20)
[2017-06-20] MEDS: LOPERAMIDE 2 MG CAP PO SCH ×3 (09:21→16:38)
--- NOTE | 2017-06-20 10:03 | P.CRDCN ---
History of Present Illness Consult date: 06/20/17 Requesting physician: Alexandru Busby Reason for Consult (text): NSVT Chief complaint: left sided weakness, vertigo History of present illness: This is a pleasant 66-year-old gentleman with prior history of hypertension, hyperlipidemia, CVA and WPW. Initially presented to the emergency department via EMS with complaints of numbness and weakness as well as dizziness. Further evaluation including MRI showed a large acute infarct in the left superior cerebral hemisphere as well as a few additional scattered small foci of acute ischemia including the right centrum semiovale, subcortical white matter of the left parietal lobe and bilateral cerebellar hemispheres. 2-D echo with Doppler was done yesterday with suboptimal views with likely normal LV systolic function. Carotid Doppler study showed no evidence of hemodynamically significant stenosis. Cardiology was asked to the patient in consultation following a 15 beat run of nonsustained VT that occurred last night while the patient was sleeping. Laboratory values were reviewed and show potassium 3.9 and magnesium 2.0. The patient was sleeping at the time and denies complaints of palpitations. He continues to complain of vertigo. Past Medical History Past Medical History: Asthma, CVA/TIA, Hearing Disorder / Deafness, Prostate Disorder, Renal Disease Additional Past Medical History / Comment(s): 05/26/16 FELL/ RT HIP FX 05/27/15 HAD STROKE -RESIDUAL HAS LOSS OF PERIPHERAL VISION. Pt fell and broke L wrist in 2013 and also had fxs in his back. In 01/2015 pt had acute epidural abscess L5-S1, acute discitis and sepsis R ankle (that eventually went systemic per pt). He had a laminectomy, discectomy and decompression L5-S1 along with I and D of an epdural abscess L5-S1. He was transferred to [facility] post op for continued tx of his sepsis. [place] was [place] [facility] [place] I and D of the back and eventually went home on home care antibiotics. Additional HX: chronic ulcerative COLITIS, chronic diarrhea-PT STATED HIS NORM IS 3-5 DIARRHEA/WATERY STOOLS PER DAY, BPH, ARTHRITIS R ankle, , chronic stable asthma, DJD, kidney stones, asbestos exposure in the [place], UTI. Pt denies HTN now that he is off steroids and also diabetes. He also has history of Crohn's disease. 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 left wrist surgically repaired after fx-PLATE/SCREW. RT HIP TEVIN/SCREWS. Past Anesthesia/Blood Transfusion Reactions: No Reported Reaction Additional Past Anesthesia/Blood Transfusion Reaction / Comment(s): Pt states he recieved blood 02/2015 at [facility] without reaction. Past Psychological History: No Psychological Hx Reported Additional Psychological History / Comment(s): Pt resides alone. DRIVES. He has 6 dogs. . He is independent. He no longer is using any home care. 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 Smoking Status: Never smoker Past Alcohol Use History: None Reported Additional Past Alcohol Use History / Comment(s): Patient has a history of smoking marijuana half ounce per day and quit in 1998. He denies any history of smoking cigarettes. He denies any alcohol use SINCE 1975. Patient is worked in the [employer] and had exposure to asbestos. He is currently living alone with 4 dogs. Past Drug Use History: None Reported - Past Family History Father Family Medical History: Myocardial Infarction (NC) Additional Family Medical History / Comment(s): Father of massive NC. Mother Family Medical History: Diabetes Mellitus Medications and Allergies Home Medications Medication Instructions Recorded Confirmed Type Acetaminophen Tab [Tylenol Tab] 1,000 mg PO Q6H PRN 02/09/17 06/17/17 History Loperamide HCl [Imodium A-D] 6 mg PO DAILY@0800 02/09/17 06/17/17 History Albuterol Nebulized [Ventolin 2.5 mg INHALATION RT-Q6H PRN 06/17/17 06/17/17 History Nebulized] Aspirin 325 mg PO DAILY 06/17/17 06/17/17 History Ferrous Sulfate [Feosol] 325 mg PO DAILY PRN 06/17/17 06/17/17 History Loperamide [Imodium] 4 mg PO DAILY@1200,1800 06/17/17 06/17/17 History predniSONE 20 mg PO DAILY 06/17/17 06/17/17 History Allergies Allergy/AdvReac Type Severity Reaction Status Date / Time No Known Allergies Allergy Verified 06/17/17 12:01 Physical Exam Vitals: Vital Signs Temp Pulse Resp BP Pulse Ox 06/20/17 04:00 72 16 128/84 96 06/20/17 00:00 97.8 F 63 16 124/75 100 06/19/17 20:00 97.3 F L 69 18 120/83 96 06/19/17 16:00 85 16 134/90 94 L 06/19/17 12:00 85 16 130/90 94 L 06/19/17 11:45 16 Intake and Output 06/19/17 06/20/17 06/20/17 22:59 06:59 14:59 Intake Total 222 120 360 Output Total 1 Balance 221 120 360 Intake: Oral 222 120 360 Output: Urine 1 Other: Voiding Method Urinal Urinal # Bowel Movements 1 Weight 92 kg PHYSICAL EXAMINATION: HEENT: Head is atraumatic, normocephalic. Pupils equal, round. Neck is supple. There is no elevated jugular venous pressure. HEART EXAMINATION: Heart sounds regular, S1 and S2 normal. No murmur or gallop heard. CHEST EXAMINATION: Lungs are clear to auscultation anteriorly. No chest wall tenderness is noted on palpation or with deep breathing. ABDOMEN: Soft, nontender. Bowel sounds are heard. No organomegaly noted. EXTREMITIES: 2+ peripheral pulses with no evidence of peripheral edema and no calf tenderness noted. NEUROLOGIC patient is awake, alert and oriented x3. . Results 06/20/17 06:20 06/20/17 05:22 CBC 06/20/17 Range/Units 06:20 WBC 13.7 H (3.8-10.6) k/uL RBC 5.24 (4.30-5.90) m/uL Hgb 12.1 L (13.0-17.5) gm/dL Hct 41.3 (39.0-53.0) % Plt Count 246 (150-450) k/uL Comprehensive Metabolic Panel 06/20/17 06/20/17 Range/Units 01:15 05:22 Sodium 130 L (137-145) mmol/L Potassium 3.9 (3.5-5.1) mmol/L Chloride 100 (98-107) mmol/L Carbon Dioxide 21 L (22-30) mmol/L BUN 33 H (9-20) mg/dL Creatinine 1.00 (0.66-1.25) mg/dL Glucose 106 H (74-99) mg/dL Calcium 8.9 (8.4-10.2) mg/dL Current Medications Generic Name Dose Route Start Last Admin Trade Name Freq PRN Reason Stop Dose Admin Acetaminophen 650 mg 06/17/17 12:44 06/17/17 15:44 Tylenol Tab PO 650 mg Q6HR PRN Administration Mild Pain or Fever > 100.5 Hydrocodone Bitart/Acetaminophen 1 each 06/18/17 12:45 06/19/17 09:43 Cass 5-325 PO 1 each Q6HR PRN Administration Pain Albuterol Sulfate 2.5 mg 06/17/17 12:46 Ventolin Nebulized INHALATION RT-Q6H PRN Shortness Of Breath Alprazolam 0.25 mg 06/17/17 20:33 Xanax PO TID PRN Anxiety Aspirin 325 mg 06/18/17 09:00 06/20/17 09:20 Aspirin PO 325 mg DAILY JOHN Administration Atorvastatin Calcium 40 mg 06/18/17 21:00 06/19/17 21:02 Lipitor PO 40 mg HS JOHN Administration Ferrous Sulfate 325 mg 06/17/17 20:33 Feosol PO DAILY PRN hemaglobin Heparin Sodium (Porcine) 5,000 unit 06/17/17 21:00 06/20/17 09:20 Heparin SQ 5,000 unit Q12HR JOHN Administration Insulin Human Lispro 0 unit 06/17/17 21:00 06/20/17 06:27 Humalog SQ Not Given ACHS [facility] Protocol Loperamide HCl 4 mg 06/18/17 12:00 06/19/17 17:22 Imodium PO 4 mg DAILY@1200,1800 JOHN Administration Loperamide HCl 6 mg 06/18/17 08:00 06/20/17 09:21 Imodium PO 6 mg DAILY@0800 JOHN Administration Meclizine HCl 25 mg 06/17/17 12:46 Antivert PO TID PRN Vertigo Melatonin 3 mg 06/17/17 21:00 06/19/17 21:02 Melatonin PO 3 mg HS JOHN Administration Morphine Sulfate 4 mg 06/17/17 12:44 Morphine Sulfate (Inj) IV Q4HR PRN Severe Pain Naloxone HCl 0.2 mg 06/17/17 12:44 Narcan IV Q2M PRN Opioid Reversal Ondansetron HCl 4 mg 06/17/17 12:44 Zofran IVP Q8HR PRN Nausea And Vomiting Pantoprazole Sodium 40 mg 06/17/17 20:45 06/20/17 09:20 Protonix IVP 40 mg DAILY JOHN Administration Prednisone 20 mg 06/18/17 09:00 06/20/17 09:20 PO 20 mg DAILY JOHN Administration Intake and Output 06/19/17 06/20/17 06/20/17 22:59 06:59 14:59 Intake Total 222 120 360 Output Total 1 Balance 221 120 360 Intake: Oral 222 120 360 Output: Urine 1 Other: Voiding Method Urinal Urinal # Bowel Movements 1 Weight 92 kg 06/20/17 06:20 06/20/17 05:22 EKG Interpretations (text) Sinus rhythm with WPW Assessment and Plan Plan: Assessment and plan #1 CVA #2 diabetes mellitus, new onset #3 vertigo #4 WPW #5 nonsustained VT, asymptomatic From cardiology's perspective, we would recommend follow-up as an outpatient with electrophysiology. We would however recommend SALINAS for further workup for embolic phenomenon. Further recommendations to follow. MET[employer] AND SERVICE LINE INSPECTOR note has been reviewed, I agree with a documented findings and plan of care. Patient was seen and examined.
[2017-06-20 11:34] LABS: Glucose,Whole Blood 185 mg/dL (75-99)
--- NOTE | 2017-06-20 14:59 | MR ---
EXAMINATION TYPE: MR angio head wo con DATE OF EXAM: 06/20/2017 COMPARISON: MRA of the head May 28, 2015. MRI brain the brain from yesterday. HISTORY: left cerebellar stroke, vertebral artery pathology TECHNIQUE: Time of flight images focusing on the [place] were performed without contrast.. 2-D and 3-D postprocessing imaging is performed. FINDINGS: There is codominant vertebral basilar system. There is no significant focal stenosis or ane urysmal change in the posterior circulation. There previously visualized small caliber posterior post erior communicating arteries are less well visualized on current study. Images of the anterior circulation show some tortuosity and mild narrowing of the supraclinoid segmen t distal internal carotid arteries bilaterally. There is patent anterior communicating artery redemon strated. There is no significant focal stenosis or aneurysmal change seen. IMPRESSION: No significant stenosis or aneurysmal change at level of the [place]
[2017-06-20 16:27] LABS: Glucose,Whole Blood 204 mg/dL (75-99)
--- NOTE | 2017-06-20 17:51 | P.PN ---
Subjective Progress note being dictated for Dr. Francois. 06/19/2017.Interval history: This a 66-year-old gentleman admitted with dizziness, weakness, gait dysfunction, possible vertebral basilar CVA and multiple other medical issues. Carotid Doppler reporting no hemodynamic significant stenosis. MRI pending. Denies any new focal deficits, complains of limited chronic right peripheral vision. Denies headache. No seizure activity. Complains of weakness and incoordination of left upper limb. Denies chest pain, palpitations and increased shortness of breath. 06/20/2017. Developed 15 beat nonsustained run of V. tach last night during sleep-asymptomatic, magnesium 2, potassium 3.9. evaluated by cardiology with recommendations noted including recommendations for SALINAS. Complains of ongoing dizziness upon arising, while sitting up. MRI reported large acute infarct of greater than 6 hours duration involving the left superior cerebellar hemisphere. MRA of the head reporting no significant stenosis or aneurysmal change at the [place]. Objective - Vital Signs Vital signs: Vital Signs Temp 96.6 F L 06/20/17 08:00 Pulse 99 06/20/17 12:00 Resp 16 06/20/17 14:24 BP 140/89 06/20/17 12:00 Pulse Ox 94 L 06/20/17 08:00 Intake & Output 06/19/17 06/20/17 06/20/17 18:59 06:59 18:59 Intake Total 444 120 582 Output Total 400 1 Balance 44 119 582 Weight 97 kg 92 kg Intake: Oral 444 120 582 Output: Urine 400 1 Other: Voiding Method Urinal Urinal Urinal # Bowel Movements 1 - Exam PHYSICAL EXAM: VITAL SIGNS: As above GENERAL: Sitting up in bed, no acute distress HEENT: Conjunctivae normal. eyes normal. Oral mucosa moist. NECK: No JVD. No thyroid enlargement. No LNs CARDIOVASCULAR: S1, S2 muffled. No murmur RESPIRATION: Breath sounds diminished in the bases. No rhonchi or crackles. No bronchial breathing. ABDOMEN: Soft, nontender . No guarding. no masses palpable. Bowel sounds heard. LEGS: No edema. no swelling PSYCHIATRY: Alert and oriented -3, mood and affect normal. NERVOUS SYSTEM: Cranial N 2-12 grossly normal. No facial asymmetry, speech fluent and appropriate, Moves all 4 limbs. Chronic right peripheral vision difficulties. Diffuse weakness ; left [id number] to finger ataxia / incoordination present. No sensory deficit. Skin: no ulcer no rash Joints: No active swelling. No inflammation. Lymphatic system. No LN neck axilla or groin. - Labs CBC & Chem 7: 06/20/17 06:20 06/20/17 05:22 Labs: Abnormal Lab Results - Last 24 Hours (Table) 06/19/17 06/19/17 06/20/17 Range/Units 16:32 20:35 05:22 WBC (3.8-10.6) k/uL Hgb (13.0-17.5) gm/dL MCV (80.0-100.0) fL MCH (25.0-35.0) pg MCHC (31.0-37.0) g/dL RDW (11.5-15.5) % Neutrophils # (1.3-7.7) k/uL Sodium 130 L (137-145) mmol/L Carbon Dioxide 21 L (22-30) mmol/L BUN 33 H (9-20) mg/dL Glucose 106 H (74-99) mg/dL POC Glucose (mg/dL) 210 H 148 H (75-99) mg/dL 06/20/17 06/20/17 06/20/17 Range/Units 06:13 06:20 11:27 WBC 13.7 H (3.8-10.6) k/uL Hgb 12.1 L (13.0-17.5) gm/dL MCV 78.9 L (80.0-100.0) fL MCH 23.1 L (25.0-35.0) pg MCHC 29.3 L (31.0-37.0) g/dL RDW 19.9 H (11.5-15.5) % Neutrophils # 10.5 H (1.3-7.7) k/uL Sodium (137-145) mmol/L Carbon Dioxide (22-30) mmol/L BUN (9-20) mg/dL Glucose (74-99) mg/dL POC Glucose (mg/dL) 109 H 185 H (75-99) mg/dL Assessment and Plan Plan: 1. Dizziness, weakness, possibly vertebrobasilar stroke; MRI reporting large acute infarct of left superior cerebellar hemisphere 2. Gait dysfunction 3. History of old left occipital stroke 4. Leukocytosis 5. Anemia, microcytic of undetermined etiology possibly of chronic disease 6. Degenerative joint disease 7. Nonsustained V. tach Plan: Continue on current medication regime , antiplatelets, GI prophylaxis monitoring and symptomatic treatment. Orthostatic vital signs every shift ordered. Patient currently declining SALINAS. Physical therapy recommending subacute rehab at discharge. Follow closely with neurology. Discharge planning in progress. The impression and plan of care has been dictated as directed. : I performed a H&P examination of this patient and discussed the same with the dictator. I agree with the dictator's note. Any additional findings/opinions/ etc. will be noted.
[2017-06-20 20:56] LABS: Glucose,Whole Blood 136 mg/dL (75-99)
[2017-06-20] MEDS: MELATONIN 3 MG TABLET PO SCH (21:02)
[2017-06-20] MEDS: ATORVASTATIN 40 MG TAB PO SCH (21:02)
[2017-06-20 22:34] LABS: Magnesium 2.1 mg/dL (1.6-2.3); Potassium 4.3 mmol/L (3.5-5.1)
[2017-06-21 06:02] LABS: Glucose,Whole Blood 112 mg/dL (75-99)
[2017-06-21] MEDS: INSULIN LISPRO (humaLOG) 300 UNIT/3 ML VIAL SQ SCH ×4 (06:12→21:04)
[2017-06-21 07:25] LABS: Anisocytosis Slight; Basophils % (A) 0 %; CH 23.2; CHCM 28.9; Eosinophils # (A) 0.1 k/uL (0-0.7); Eosinophils % (A) 1 %; HCT 42.4 % (39.0-53.0); HDW 2.43; HGB 12.4 gm/dL (13.0-17.5); Hypochromasia Marked; Luc # (Auto) 0.25; Luc % (Auto) 2; Lymphocytes # (A) 2.2 k/uL (1.0-4.8); Lymphocytes % (A) 16 %; MCH 23.5 pg (25.0-35.0); MCHC 29.2 g/dL (31.0-37.0); MCV 80.4 fL (80.0-100.0); Mean Platelet Volume 7.5; Microcytosis Slight; Monocytes # (A) 1.2 k/uL (0-1.0); Monocytes % (A) 8 %; Neutrophils # (A) 10.3 k/uL (1.3-7.7); Neutrophils % (A) 73 %; RBC 5.27 m/uL (4.30-5.90); RDW 18.6 % (11.5-15.5); WBC (Perox) 14.65
[2017-06-21 07:45] LABS: Anion Gap 12 mmol/L; Blood Urea Nitrogen 37 mg/dL (9-20); Calcium 9.1 mg/dL (8.4-10.2); Carbon Dioxide 23 mmol/L (22-30); Chloride 102 mmol/L (98-107); Glucose 92 mg/dL (74-99); Non-African American GFR(MDRD) >60 (>60 ml/min/1.73 sqM); Potassium 4.2 mmol/L (3.5-5.1); Sodium 137 mmol/L (137-145)
[2017-06-21] MEDS: predniSONE 20 MG TAB PO SCH (10:09)
[2017-06-21] MEDS: ASPIRIN 325 MG TAB PO SCH (10:09)
[2017-06-21] MEDS: HEPARIN SODIUM,PORCINE 5,000 UNIT/ML 1 ML VIAL SQ SCH ×2 (10:10→21:04)
[2017-06-21] MEDS: PANTOPRAZOLE 40 MG/10 ML VIAL IVP SCH (10:10)
[2017-06-21] MEDS: LOPERAMIDE 2 MG CAP PO SCH ×3 (10:10→17:10)
--- NOTE | 2017-06-21 10:40 | P.PN ---
Subjective Principal diagnosis: TIA/CVA This is a pleasant 66-year-old gentleman with prior history of hypertension, hyperlipidemia, CVA and WPW. Initially presented to the emergency department via EMS with complaints of numbness and weakness as well as dizziness. Further evaluation including MRI showed a large acute infarct in the left superior cerebral hemisphere as well as a few additional scattered small foci of acute ischemia including the right centrum semiovale, subcortical white matter of the left parietal lobe and bilateral cerebellar hemispheres. 2-D echo with Doppler was done yesterday with suboptimal views with likely normal LV systolic function. Carotid Doppler study showed no evidence of hemodynamically significant stenosis. Cardiology was asked to the patient in consultation following a 15 beat run of nonsustained VT that occurred last night while the patient was sleeping. Laboratory values were reviewed and show potassium 3.9 and magnesium 2.0. The patient was sleeping at the time and denies complaints of palpitations. He continues to complain of vertigo. I'll follow-up with him today, he is asymptomatic from the cardiovascular standpoint overview. No cardiac arrhythmia since the last episode yesterday. Objective - Vital Signs Vital signs: Vital Signs Temp 98.4 F 06/21/17 08:00 Pulse 123 H 06/21/17 10:32 Resp 18 06/21/17 08:00 BP 143/92 06/21/17 10:32 Pulse Ox 94 L 06/21/17 08:00 Intake & Output 06/20/17 06/21/17 06/21/17 18:59 06:59 18:59 Intake Total 804 250 Output Total 400 1150 Balance 404 -900 Weight 88.5 kg Intake: Oral 804 250 Output: Urine 400 950 Stool 200 Other: Voiding Method Urinal Urinal Urinal # Voids 1 # Bowel Movements 1 - Constitutional General appearance: Present: no acute distress - Respiratory Respiratory: bilateral: CTA - Cardiovascular Rhythm: regular Heart sounds: normal: S1, S2 - Labs CBC & Chem 7: 06/21/17 05:16 06/21/17 05:16 Labs: Abnormal Lab Results - Last 24 Hours (Table) 06/20/17 06/20/17 06/20/17 Range/Units 11:27 16:16 20:53 WBC (3.8-10.6) k/uL Hgb (13.0-17.5) gm/dL MCH (25.0-35.0) pg MCHC (31.0-37.0) g/dL RDW (11.5-15.5) % Neutrophils # (1.3-7.7) k/uL Monocytes # (0-1.0) k/uL BUN (9-20) mg/dL POC Glucose (mg/dL) 185 H 204 H 136 H (75-99) mg/dL 06/21/17 06/21/17 06/21/17 Range/Units 05:16 05:16 05:45 WBC 14.0 H (3.8-10.6) k/uL Hgb 12.4 L (13.0-17.5) gm/dL MCH 23.5 L (25.0-35.0) pg MCHC 29.2 L (31.0-37.0) g/dL RDW 18.6 H (11.5-15.5) % Neutrophils # 10.3 H (1.3-7.7) k/uL Monocytes # 1.2 H (0-1.0) k/uL BUN 37 H (9-20) mg/dL POC Glucose (mg/dL) 112 H (75-99) mg/dL Assessment and Plan Plan: This is a pleasant 66-year-old gentleman who was admitted to the hospital with TIA/CVA. We get involved in his care because of cardiac arrhythmia in the term of nonsustained VT. The patient is known to have WPW. He refused ablation in the past. He continues to follow with a domestic housekeeper at the [facility]. From the cardiovascular standpoint of view, we'll continue the current medical treatment and the patient can be transferred to non-telemetry floor.
[2017-06-21 12:07] LABS: Glucose,Whole Blood 186 mg/dL (75-99)
[2017-06-21 16:35] LABS: Glucose,Whole Blood 171 mg/dL (75-99)
--- NOTE | 2017-06-21 18:08 | P.PN ---
Subjective Patient is beign evaluatied for acute right hemispheric stroke. Patient was initially admitted with symptoms of dizziness and weakness. His clinical history suggests possibility of vertebrobasilar insufficiency versus stroke. Patient scheduled to undergo MRI of the brain tomorrow for further evaluation. Patient denies any new symptoms of weakness or headache. He is to continue on his current medications which include antiplatelet agent at this time he continues to have difficulty walking due to unsteady gait and mild ataxia. He does have history of previous old stroke. This stroke risk factors include hypercholesterolemia, hypertension, and previous stroke. His blood pressures are being closely monitored. He underwent a carotid Doppler ultrasound today which reveals no evidence of significant carotid artery stenosis. We will continue close neurological follow-up for this patient during this admission. He is scheduled to undergo MRI of the brain for further assessment today. His MRI results were reviewed today with the patient. He has suffered a large left cerebellar stroke. This is explained his left-sided dysmetria. Given the large extent of the stroke he will require PT/OT in subacute rehab at the time of discharge. 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 He may require further outpatient electrophysiological studies of his heart at the time of discharge. Patient did develop a 15 beat nonsustained run of V. tach last night. He was asleep at the time and was asymptomatic. We're waiting further recommendations from cardiology. They did recommend SALINAS procedure for this patient as well. Patient underwent MRA of the brain which came back negative for any evidence of stenosis or aneurysm. His overall prognosis at this time remains guarded. Objective - Vital Signs Vital signs: Vital Signs Temp 96.6 F L 06/20/17 08:00 Pulse 86 06/20/17 16:00 Resp 16 06/20/17 16:00 BP 130/93 06/20/17 16:00 Pulse Ox 96 06/20/17 16:00 Intake & Output 06/20/17 06/20/17 06/21/17 06:59 18:59 06:59 Intake Total 120 804 Output Total 1 400 Balance 119 404 Weight 92 kg Intake: Oral 120 804 Output: Urine 1 400 Other: Voiding Method Urinal Urinal # Bowel Movements 1 - Exam Physical examination: PHYSICAL EXAMINATION: Patient is resting comfortably in bed. VITAL SIGNS: Blood pressure is [128/86]. Heart rate is [102]. Respiration is [19 ]. Temperature is [98.2]. HEENT: Head is atraumatic, neck is supple, there were no carotid bruits. CHEST: Lungs are clear to auscultation and percussion. CARDIAC: S1, S2 normal rate and rhythm. There is no murmur. ABDOMEN: Soft and nontender. Bowel sounds are present. EXTREMITIES: There is no pedal edema. Peripheral pulses are present. Neurological examination: Patient's neurological examination is unchanged from yesterday. - Labs CBC & Chem 7: 06/21/17 05:16 06/21/17 05:16 Labs: Abnormal Lab Results - Last 24 Hours (Table) 06/19/17 06/20/17 06/20/17 Range/Units 20:35 05:22 06:13 WBC (3.8-10.6) k/uL Hgb (13.0-17.5) gm/dL MCV (80.0-100.0) fL MCH (25.0-35.0) pg MCHC (31.0-37.0) g/dL RDW (11.5-15.5) % Neutrophils # (1.3-7.7) k/uL Sodium 130 L (137-145) mmol/L Carbon Dioxide 21 L (22-30) mmol/L BUN 33 H (9-20) mg/dL Glucose 106 H (74-99) mg/dL POC Glucose (mg/dL) 148 H 109 H (75-99) mg/dL 06/20/17 06/20/17 06/20/17 Range/Units 06:20 11:27 16:16 WBC 13.7 H (3.8-10.6) k/uL Hgb 12.1 L (13.0-17.5) gm/dL MCV 78.9 L (80.0-100.0) fL MCH 23.1 L (25.0-35.0) pg MCHC 29.3 L (31.0-37.0) g/dL RDW 19.9 H (11.5-15.5) % Neutrophils # 10.5 H (1.3-7.7) k/uL Sodium (137-145) mmol/L Carbon Dioxide (22-30) mmol/L BUN (9-20) mg/dL Glucose (74-99) mg/dL POC Glucose (mg/dL) 185 H 204 H (75-99) mg/dL Assessment and Plan (1) Vertebrobasilar insufficiency Status: Acute Code(s): G45.0 - VERTEBRO-BASILAR ARTERY SYNDROME (2) Dehydration Status: Acute Code(s): E86.0 - DEHYDRATION (3) Diabetes mellitus, new onset Status: Acute Code(s): E11.9 - TYPE 2 DIABETES MELLITUS WITHOUT COMPLICATIONS (4) Vertigo Status: Acute Code(s): R42 - DIZZINESS AND GIDDINESS (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 He was standing on a ladder when he suddenly developed tinnitus in both ears followed by severe headache pain. He was advised to come to the emergency room for further evaluation. He was seen in the ER by Dr. Erickson. Patient was sent for computed tomography scan of the brain. CAT scan of the brain revealed evidence of old bilateral occipital stroke. No other new areas of stroke were identified. There was evidence of chronic atrophy as well. Patient was essentially admitted to the hospital. His neurological examination reveals significant dysmetria with finger-nose testing and psue-xg-efis testing on his left side. He is also complaining of the dizziness and tinnitus. These findings are suggesting vertebrobasilar and brainstem localization. We have recommended the patient undergo MRI of the brain for further evaluation for brainstem stroke. Patient underwent MRI of the brain today. We reviewed the results as well as the films and the MRI today. MRI reveals a large left cerebellar stroke. We did discuss the findings today with the patient and there was concern he may have embolic stroke. Patient states that last year he was seen for this previous stroke and did undergo SALINAS procedure. This he reports was normal with no evidence of PFO or atrial thrombus. Patient will like to hold off on repeating SALINAS procedure at this time. Cardiology did evaluate the patient as he did have a run of nonsustained V. tach. They have recommended SALINAS procedure for the patient. He underwent an MRA [place] which came back negative for any evidence of aneurysm. He is to continue with current inpatient therapies. Patient is to continue with his current medications for treatment of the acute stroke. He should be further evaluated by PT/OT for possible inpatient rehab placement. His overall prognosis at this time remains very guarded. We will continue to monitor his progress closely during this admission.
--- NOTE | 2017-06-21 18:19 | P.PN ---
Subjective Patient is beign evaluatied for acute right hemispheric stroke. Patient was initially admitted with symptoms of dizziness and weakness. His clinical history suggests possibility of vertebrobasilar insufficiency versus stroke. Patient scheduled to undergo MRI of the brain tomorrow for further evaluation. Patient denies any new symptoms of weakness or headache. He is to continue on his current medications which include antiplatelet agent at this time he continues to have difficulty walking due to unsteady gait and mild ataxia. He does have history of previous old stroke. This stroke risk factors include hypercholesterolemia, hypertension, and previous stroke. His blood pressures are being closely monitored. He underwent a carotid Doppler ultrasound today which reveals no evidence of significant carotid artery stenosis. We will continue close neurological follow-up for this patient during this admission. He is scheduled to undergo MRI of the brain for further assessment today. His MRI results were reviewed today with the patient. He has suffered a large left cerebellar stroke. This is explained his left-sided dysmetria. Given the large extent of the stroke he will require PT/OT in subacute rehab at the time of discharge. He does have history of Mnzgh-Yectvoxnw-Extuv syndrome and we will await further recommendations from cardiology. He may require further outpatient electrophysiological studies of his heart at the time of discharge. Patient did develop a 15 beat nonsustained run of V. tach last night. He was asleep at the time and was asymptomatic. We are awaiting further recommendations from cardiology. They did recommend SALINAS procedure for this patient as well. Patient has declined SALINAS as he had the procedure done last year. He reports this was negative. Patient underwent MRA of the brain which came back negative for any evidence of stenosis or aneurysm. According to cardiology the patient has been evaluated for cardiac arrhythmia in the past for his known history of Akfrh-Ivujgknlq-Obxoh syndrome. At that time he refused ablation procedure for treatment. 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 Patient will need subacute rehab at the time of his discharge. We will await further recommendations from physical therapy. His overall prognosis at this time remains guarded. We will continue close neurological follow-up of this patient during this admission. Objective - Vital Signs Vital signs: Vital Signs Temp 98.4 F 06/21/17 08:00 Pulse 90 06/21/17 12:00 Resp 18 06/21/17 12:00 BP 117/74 06/21/17 12:00 Pulse Ox 94 L 06/21/17 08:00 Intake & Output 06/20/17 06/21/17 06/21/17 18:59 06:59 18:59 Intake Total 804 250 Output Total 400 1150 300 Balance 404 -900 -300 Weight 88.5 kg Intake: Oral 804 250 Output: Urine 400 950 300 Stool 200 Other: Voiding Method Urinal Urinal Urinal # Voids 1 1 # Bowel Movements 1 2 - Exam Physical examination: PHYSICAL EXAMINATION: Patient is resting comfortably in bed. VITAL SIGNS: Blood pressure is [119/83]. Heart rate is [84]. Respiration is [19] . Temperature is [97.0]. HEENT: Head is atraumatic, neck is supple, there were no carotid bruits. CHEST: Lungs are clear to auscultation and percussion. CARDIAC: S1, S2 normal rate and rhythm. There is no murmur. ABDOMEN: Soft and nontender. Bowel sounds are present. EXTREMITIES: There is no pedal edema. Peripheral pulses are present. Neurological examination: Patient's neurological examination is unchanged from yesterday. Patient continues to demonstrate mild degree of ataxia especially on the left side. He has dysmetria on the left upper extremity. - Labs CBC & Chem 7: 06/21/17 05:16 06/21/17 05:16 Labs: Abnormal Lab Results - Last 24 Hours (Table) 06/20/17 06/21/17 06/21/17 Range/Units 20:53 05:16 05:16 WBC 14.0 H (3.8-10.6) k/uL Hgb 12.4 L (13.0-17.5) gm/dL MCH 23.5 L (25.0-35.0) pg MCHC 29.2 L (31.0-37.0) g/dL RDW 18.6 H (11.5-15.5) % Neutrophils # 10.3 H (1.3-7.7) k/uL Monocytes # 1.2 H (0-1.0) k/uL BUN 37 H (9-20) mg/dL POC Glucose (mg/dL) 136 H (75-99) mg/dL 06/21/17 06/21/17 06/21/17 Range/Units 05:45 12:03 16:32 WBC (3.8-10.6) k/uL Hgb (13.0-17.5) gm/dL MCH (25.0-35.0) pg MCHC (31.0-37.0) g/dL RDW (11.5-15.5) % Neutrophils # (1.3-7.7) k/uL Monocytes # (0-1.0) k/uL BUN (9-20) mg/dL POC Glucose (mg/dL) 112 H 186 H 171 H (75-99) mg/dL Assessment and Plan (1) Vertebrobasilar insufficiency Status: Acute Code(s): G45.0 - VERTEBRO-BASILAR ARTERY SYNDROME (2) Dehydration Status: Acute Code(s): E86.0 - DEHYDRATION (3) Diabetes mellitus, new onset Status: Acute Code(s): E11.9 - TYPE 2 DIABETES MELLITUS WITHOUT COMPLICATIONS (4) Vertigo Status: Acute Code(s): R42 - DIZZINESS AND GIDDINESS (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 He was standing on a ladder when he suddenly developed tinnitus in both ears followed by severe headache pain. He was advised to come to the emergency room for further evaluation. He was seen in the ER by Dr. Erickson. Patient was sent for computed tomography scan of the brain. CAT scan of the brain revealed evidence of old bilateral occipital stroke. No other new areas of stroke were identified. There was evidence of chronic atrophy as well. Patient was essentially admitted to the hospital. His neurological examination reveals significant dysmetria with finger-nose testing and fmkm-ku-xvlr testing on his left side. He is also complaining of the dizziness and tinnitus. These findings are suggesting vertebrobasilar and brainstem localization. We have recommended the patient undergo MRI of the brain for further evaluation for brainstem stroke. Patient underwent MRI of the brain today. We reviewed the results as well as the films and the MRI today. MRI reveals a large left cerebellar stroke. We did discuss the findings today with the patient and there was concern he may have embolic stroke. Patient states that last year he was seen for this previous stroke and did undergo SALINAS procedure. This he reports was normal with no evidence of PFO or atrial thrombus. Patient will like to hold off on repeating SALINAS procedure at this time. Cardiology did evaluate the patient as he did have a run of nonsustained V. tach. They have recommended SALINAS procedure for the patient. Patient declines SALINAS as he states he underwent the procedure last year which was normal. He underwent an MRA [place] which came back negative for any evidence of aneurysm. He is to continue with current inpatient therapies. Patient is to continue with his current medications for treatment of the acute stroke. He should be further evaluated by PT/OT for possible inpatient rehab placement. Patient has history of Drrbw-Vwfpqxbih-Cscnv syndrome. He has been evaluated for ablation procedure in the past but refused this treatment. His overall prognosis at this time remains very guarded. We will continue to monitor his progress closely during this admission. Patient will need subacute rehab placement at the time of discharge. We will continue close neurological follow-up of this patient during this admission.
[2017-06-21 21:00] LABS: Glucose,Whole Blood 173 mg/dL (75-99)
[2017-06-21] MEDS: ATORVASTATIN 40 MG TAB PO SCH (21:04)
[2017-06-21] MEDS: MELATONIN 3 MG TABLET PO SCH (21:04)
[2017-06-22 06:59] LABS: Glucose,Whole Blood 126 mg/dL (75-99)
[2017-06-22] MEDS: HEPARIN SODIUM,PORCINE 5,000 UNIT/ML 1 ML VIAL SQ SCH ×2 (08:52→21:52)
[2017-06-22] MEDS: PANTOPRAZOLE 40 MG TABLET PO SCH (08:53)
[2017-06-22] MEDS: ASPIRIN 325 MG TAB PO SCH (08:53)
[2017-06-22] MEDS: predniSONE 20 MG TAB PO SCH (08:53)
[2017-06-22] MEDS: LOPERAMIDE 2 MG CAP PO SCH ×3 (08:56→17:58)
[2017-06-22] MEDS: INSULIN LISPRO (humaLOG) 300 UNIT/3 ML VIAL SQ SCH ×4 (08:56→21:52)
[2017-06-22 09:43] LABS: Anisocytosis Slight; Basophils # (A) 0.1 k/uL (0-0.2); Basophils % (A) 0 %; CH 24.3; CHCM 30.8; Eosinophils # (A) 0.1 k/uL (0-0.7); Eosinophils % (A) 1 %; HCT 45.2 % (39.0-53.0); HDW 2.64; HGB 13.1 gm/dL (13.0-17.5); Hypochromasia Slight; Luc # (Auto) 0.24; Luc % (Auto) 2; Lymphocytes # (A) 2.5 k/uL (1.0-4.8); Lymphocytes % (A) 18 %; MCHC 29.1 g/dL (31.0-37.0); MCV 79.3 fL (80.0-100.0); Mean Platelet Volume 7.2; Microcytosis Slight; Monocytes # (A) 1.1 k/uL (0-1.0); Monocytes % (A) 8 %; Neutrophils # (A) 10.1 k/uL (1.3-7.7); Neutrophils % (A) 72 %; RDW 19.9 % (11.5-15.5); WBC 14.1 k/uL (3.8-10.6); WBC (Perox) 14.25
[2017-06-22 10:17] LABS: Anion Gap 14 mmol/L; Blood Urea Nitrogen 40 mg/dL (9-20); Calcium 9.5 mg/dL (8.4-10.2); Carbon Dioxide 24 mmol/L (22-30); Chloride 100 mmol/L (98-107); Glucose 115 mg/dL (74-99); Non-African American GFR(MDRD) 54 (>60 ml/min/1.73 sqM); Potassium 4.1 mmol/L (3.5-5.1); Sodium 138 mmol/L (137-145)
--- NOTE | 2017-06-22 10:51 | P.PN ---
Subjective Progress note being dictated for Dr. Francois. 06/19/2017.Interval history: This a 66-year-old gentleman admitted with dizziness, weakness, gait dysfunction, possible vertebral basilar CVA and multiple other medical issues. Carotid Doppler reporting no hemodynamic significant stenosis. MRI pending. Denies any new focal deficits, complains of limited chronic right peripheral vision. Denies headache. No seizure activity. Complains of weakness and incoordination of left upper limb. Denies chest pain, palpitations and increased shortness of breath. 06/20/2017. Developed 15 beat nonsustained run of V. tach last night during sleep-asymptomatic, magnesium 2, potassium 3.9. evaluated by cardiology with recommendations noted including recommendations for SALINAS. Complains of ongoing dizziness upon arising, while sitting up. MRI reported large acute infarct of greater than 6 hours duration involving the left superior cerebellar hemisphere. MRA of the head reporting no significant stenosis or aneurysmal change at the [place]. 06/21/2017. No further runs of V. tach reported. Doing well. Complains of dizziness when sitting up, orthostatic vital signs pending. His chest pain, palpitations or increasing shortness of breath. Good diet intake with no nausea or vomiting. Evaluated by a physical therapy and subacute rehab recommended. Objective - Vital Signs Vital signs: Vital Signs Temp 98.4 F 06/21/17 08:00 Pulse 123 H 06/21/17 10:32 Resp 18 06/21/17 08:00 BP 143/92 06/21/17 10:32 Pulse Ox 94 L 06/21/17 08:00 Intake & Output 06/20/17 06/21/17 06/21/17 18:59 06:59 18:59 Intake Total 804 250 Output Total 400 1150 300 Balance 404 -900 -300 Weight 88.5 kg Intake: Oral 804 250 Output: Urine 400 950 300 Stool 200 Other: Voiding Method Urinal Urinal Urinal # Voids 1 1 # Bowel Movements 1 2 - Exam PHYSICAL EXAM: VITAL SIGNS: As above GENERAL: Sitting up in bed, no acute distress HEENT: Conjunctivae normal. eyes normal. Oral mucosa moist. NECK: No JVD. No thyroid enlargement. No LNs CARDIOVASCULAR: S1, S2 muffled. No murmur RESPIRATION: Breath sounds diminished in the bases. No rhonchi or crackles. No bronchial breathing. ABDOMEN: Soft, nontender . No guarding. no masses palpable. Bowel sounds heard. LEGS: No edema. no swelling PSYCHIATRY: Alert and oriented -3, mood and affect normal. NERVOUS SYSTEM: Cranial N 2-12 grossly normal. No facial asymmetry, speech fluent and appropriate, Moves all 4 limbs. Chronic right peripheral vision difficulties. Diffuse weakness ; unchanged: left jwtwjq-ap-slig to finger ataxia /incoordination present. No sensory deficit. Skin: no ulcer no rash Joints: No active swelling. No inflammation. - Labs CBC & Chem 7: 06/22/17 08:52 06/22/17 08:52 Labs: Abnormal Lab Results - Last 24 Hours (Table) 06/20/17 06/20/17 06/21/17 Range/Units 16:16 20:53 05:16 WBC 14.0 H (3.8-10.6) k/uL Hgb 12.4 L (13.0-17.5) gm/dL MCH 23.5 L (25.0-35.0) pg MCHC 29.2 L (31.0-37.0) g/dL RDW 18.6 H (11.5-15.5) % Neutrophils # 10.3 H (1.3-7.7) k/uL Monocytes # 1.2 H (0-1.0) k/uL BUN (9-20) mg/dL POC Glucose (mg/dL) 204 H 136 H (75-99) mg/dL 06/21/17 06/21/17 06/21/17 Range/Units 05:16 05:45 12:03 WBC (3.8-10.6) k/uL Hgb (13.0-17.5) gm/dL MCH (25.0-35.0) pg MCHC (31.0-37.0) g/dL RDW (11.5-15.5) % Neutrophils # (1.3-7.7) k/uL Monocytes # (0-1.0) k/uL BUN 37 H (9-20) mg/dL POC Glucose (mg/dL) 112 H 186 H (75-99) mg/dL Assessment and Plan Plan: 1. Dizziness, weakness, possibly vertebrobasilar stroke; MRI reporting large acute infarct of left superior cerebellar hemisphere 2. Gait dysfunction 3. History of old left occipital stroke 4. Leukocytosis 5. Anemia, microcytic of undetermined etiology possibly of chronic disease 6. Degenerative joint disease 7. Nonsustained V. tach, spontaneously converted to sinus rhythm Plan: Continue on current medication regime , antiplatelets, GI prophylaxis monitoring and symptomatic treatment. Patient cleared for transfer of the telemetry unit as per cardiology. Declining SALINAS at this time. PT/OT.Patient medically stable for discharge. Discharge planning in progress pending insurance authorization for subacute rehab. The impression and plan of care has been dictated as directed. : I performed a H&P examination of this patient and discussed the same with the dictator. I agree with the dictator's note. Any additional findings/opinions/ etc. will be noted.
[2017-06-22 12:25] LABS: Glucose,Whole Blood 237 mg/dL (75-99)
--- NOTE | 2017-06-22 12:33 | P.PN ---
Subjective Progress note being dictated for Dr. Francois. 06/19/2017.Interval history: This a 66-year-old gentleman admitted with dizziness, weakness, gait dysfunction, possible vertebral basilar CVA and multiple other medical issues. Carotid Doppler reporting no hemodynamic significant stenosis. MRI pending. Denies any new focal deficits, complains of limited chronic right peripheral vision. Denies headache. No seizure activity. Complains of weakness and incoordination of left upper limb. Denies chest pain, palpitations and increased shortness of breath. 06/20/2017. Developed 15 beat nonsustained run of V. tach last night during sleep-asymptomatic, magnesium 2, potassium 3.9. evaluated by cardiology with recommendations noted including recommendations for SALINAS. Complains of ongoing dizziness upon arising, while sitting up. MRI reported large acute infarct of greater than 6 hours duration involving the left superior cerebellar hemisphere. MRA of the head reporting no significant stenosis or aneurysmal change at the [place]. 06/21/2017. No further runs of V. tach reported. Doing well. Complains of dizziness when sitting up, orthostatic vital signs pending. His chest pain, palpitations or increasing shortness of breath. Good diet intake with no nausea or vomiting. Evaluated by a physical therapy and subacute rehab recommended. 06/14/2017 lying in bed, watching TV, no acute distress. Dizziness improving. Negative for orthostatic hypotension. Worsening renal function, creatinine 1.3 Denies chest pain, palpitations or increasing shortness of breath. PT/OT. Objective - Vital Signs Vital signs: Vital Signs Temp 97.4 F L 06/22/17 07:00 Pulse 100 06/22/17 10:20 Resp 16 06/22/17 07:00 BP 142/92 06/22/17 10:20 Pulse Ox 96 06/22/17 07:00 Intake & Output 06/21/17 06/22/17 06/22/17 18:59 06:59 18:59 Intake Total 240 Output Total 300 300 Balance -300 -300 240 Intake: Oral 240 Output: Urine 300 300 Other: Voiding Method Urinal Urinal # Voids 1 2 # Bowel Movements 2 3 - Exam PHYSICAL EXAM: VITAL SIGNS: As above GENERAL: Laying in bed, no acute distress HEENT: Conjunctivae normal. eyes normal. Oral mucosa moist. NECK: No JVD. No thyroid enlargement. No LNs CARDIOVASCULAR: S1, S2 muffled. No murmur RESPIRATION: Breath sounds diminished in the bases. No rhonchi or crackles. No bronchial breathing. ABDOMEN: Soft, nontender . No guarding. no masses palpable. Bowel sounds heard. LEGS: No edema. no swelling PSYCHIATRY: Alert and oriented -3, mood and affect normal. NERVOUS SYSTEM: Cranial N 2-12 grossly normal. No facial asymmetry, speech fluent and appropriate, Moves all 4 limbs. Chronic right peripheral vision difficulties. Diffuse weakness ; unchanged: left mvhqef-jq-dlij to finger ataxia /incoordination present. No sensory deficit. Skin: no ulcer no rash Joints: No active swelling. No inflammation. - Labs CBC & Chem 7: 06/22/17 08:52 06/22/17 08:52 Labs: Abnormal Lab Results - Last 24 Hours (Table) 06/21/17 06/21/17 06/22/17 Range/Units 16:32 20:55 06:52 WBC (3.8-10.6) k/uL MCV (80.0-100.0) fL MCH (25.0-35.0) pg MCHC (31.0-37.0) g/dL RDW (11.5-15.5) % Neutrophils # (1.3-7.7) k/uL Monocytes # (0-1.0) k/uL BUN (9-20) mg/dL Creatinine (0.66-1.25) mg/dL Glucose (74-99) mg/dL POC Glucose (mg/dL) 171 H 173 H 126 H (75-99) mg/dL 06/22/17 06/22/17 Range/Units 08:52 08:52 WBC 14.1 H (3.8-10.6) k/uL MCV 79.3 L (80.0-100.0) fL MCH 23.0 L (25.0-35.0) pg MCHC 29.1 L (31.0-37.0) g/dL RDW 19.9 H (11.5-15.5) % Neutrophils # 10.1 H (1.3-7.7) k/uL Monocytes # 1.1 H (0-1.0) k/uL BUN 40 H (9-20) mg/dL Creatinine 1.33 H (0.66-1.25) mg/dL Glucose 115 H (74-99) mg/dL POC Glucose (mg/dL) (75-99) mg/dL Assessment and Plan Plan: 1. Dizziness, weakness, possibly vertebrobasilar stroke; MRI reporting large acute infarct of left superior cerebellar hemisphere 2. Gait dysfunction 3. History of old left occipital stroke 4. Leukocytosis 5. Anemia, microcytic of undetermined etiology possibly of chronic disease 6. Degenerative joint disease 7. Nonsustained V. tach, spontaneously converted to sinus rhythm Plan: Continue on current medication regime , antiplatelets, GI prophylaxis monitoring and symptomatic treatment. PT/OT. Up in chair for all meals. Encourage oral intake. Close monitoring of renal function with repeat labs ordered for a.m. Discharge planning in progress pending insurance authorization for subacute rehab. The impression and plan of care has been dictated as directed. : I performed a H&P examination of this patient and discussed the same with the dictator. I agree with the dictator's note. Any additional findings/opinions/ etc. will be noted.
[2017-06-22 17:32] LABS: Glucose,Whole Blood 176 mg/dL (75-99)
[2017-06-22 20:42] LABS: Glucose,Whole Blood 134 mg/dL (75-99)
[2017-06-22] MEDS: ATORVASTATIN 40 MG TAB PO SCH (21:52)
[2017-06-22] MEDS: MELATONIN 3 MG TABLET PO SCH (21:52)
--- NOTE | 2017-06-23 01:03 | P.PN ---
Subjective Patient is beign evaluatied for acute right hemispheric stroke. Patient was initially admitted with symptoms of dizziness and weakness. His clinical history suggests possibility of vertebrobasilar insufficiency versus stroke. Patient scheduled to undergo MRI of the brain tomorrow for further evaluation. Patient denies any new symptoms of weakness or headache. He is to continue on his current medications which include antiplatelet agent at this time he continues to have difficulty walking due to unsteady gait and mild ataxia. He does have history of previous old stroke. This stroke risk factors include hypercholesterolemia, hypertension, and previous stroke. His blood pressures are being closely monitored. He underwent a carotid Doppler ultrasound today which reveals no evidence of significant carotid artery stenosis. We will continue close neurological follow-up for this patient during this admission. He is scheduled to undergo MRI of the brain for further assessment today. His MRI results were reviewed today with the patient. He has suffered a large left cerebellar stroke. This is explained his left-sided dysmetria. Given the large extent of the stroke he will require PT/OT in subacute rehab at the time of discharge. 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 He may require further outpatient electrophysiological studies of his heart at the time of discharge. Patient did develop a 15 beat nonsustained run of V. tach last night. He was asleep at the time and was asymptomatic. We are awaiting further recommendations from cardiology. They did recommend SALINAS procedure for this patient as well. Patient has declined SALINAS as he had the procedure done last year. He reports this was negative. Patient underwent MRA of the brain which came back negative for any evidence of stenosis or aneurysm. According to cardiology the patient has been evaluated for cardiac arrhythmia in the past for his known history of Zrrqr-Jizagvzys-Mvjap syndrome. At that time he refused ablation procedure for treatment. 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 Patient will need subacute rehab at the time of his discharge. We will await further recommendations from physical therapy. The patient has had no further runs of V. tach. He denies any chest discomfort at this time. He does complain of mild dizziness which may be related to a cerebellar stroke. His overall prognosis at this time remains guarded. We will continue close neurological follow-up of this patient during this admission. Objective - Vital Signs Vital signs: Vital Signs Temp 97.4 F L 06/22/17 07:00 Pulse 100 06/22/17 10:20 Resp 16 06/22/17 07:00 BP 142/92 06/22/17 10:20 Pulse Ox 96 06/22/17 07:00 Intake & Output 06/21/17 06/22/17 06/22/17 18:59 06:59 18:59 Intake Total 240 Output Total 300 300 Balance -300 -300 240 Intake: Oral 240 Output: Urine 300 300 Other: Voiding Method Urinal Urinal # Voids 1 2 # Bowel Movements 2 3 - Exam Physical examination: PHYSICAL EXAMINATION: Patient is resting comfortably in bed. VITAL SIGNS: Blood pressure is [120/85]. Heart rate is [77]. Respiration is [16] . Temperature is [97.1]. HEENT: Head is atraumatic, neck is supple, there were no carotid bruits. CHEST: Lungs are clear to auscultation and percussion. CARDIAC: S1, S2 normal rate and rhythm. There is no murmur. ABDOMEN: Soft and nontender. Bowel sounds are present. EXTREMITIES: There is no pedal edema. Peripheral pulses are present. Neurological examination: Patient's neurological examination is unchanged from yesterday. Patient continues to demonstrate mild degree of ataxia especially on the left side. He has dysmetria on the left upper extremity. - Labs CBC & Chem 7: 06/22/17 08:52 06/22/17 08:52 Labs: Abnormal Lab Results - Last 24 Hours (Table) 06/21/17 06/21/17 06/22/17 Range/Units 16:32 20:55 06:52 WBC (3.8-10.6) k/uL MCV (80.0-100.0) fL MCH (25.0-35.0) pg MCHC (31.0-37.0) g/dL RDW (11.5-15.5) % Neutrophils # (1.3-7.7) k/uL Monocytes # (0-1.0) k/uL BUN (9-20) mg/dL Creatinine (0.66-1.25) mg/dL Glucose (74-99) mg/dL POC Glucose (mg/dL) 171 H 173 H 126 H (75-99) mg/dL 09/28/17 09/28/17 09/28/17 Range/Units 08:52 08:52 12:20 WBC 14.1 H (3.8-10.6) k/uL MCV 79.3 L (80.0-100.0) fL MCH 23.0 L (25.0-35.0) pg MCHC 29.1 L (31.0-37.0) g/dL RDW 19.9 H (11.5-15.5) % Neutrophils # 10.1 H (1.3-7.7) k/uL Monocytes # 1.1 H (0-1.0) k/uL BUN 40 H (9-20) mg/dL Creatinine 1.33 H (0.66-1.25) mg/dL Glucose 115 H (74-99) mg/dL POC Glucose (mg/dL) 237 H (75-99) mg/dL Assessment and Plan (1) Vertebrobasilar insufficiency Status: Acute Code(s): G45.0 - VERTEBRO-BASILAR ARTERY SYNDROME (2) Dehydration Status: Acute Code(s): E86.0 - DEHYDRATION (3) Diabetes mellitus, new onset Status: Acute Code(s): E11.9 - TYPE 2 DIABETES MELLITUS WITHOUT COMPLICATIONS (4) Vertigo Status: Acute Code(s): R42 - DIZZINESS AND GIDDINESS (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 He was standing on a ladder when he suddenly developed tinnitus in both ears followed by severe headache pain. He was advised to come to the emergency room for further evaluation. He was seen in the ER by Dr. Erickson. Patient was sent for computed tomography scan of the brain. CAT scan of the brain revealed evidence of old bilateral occipital stroke. No other new areas of stroke were identified. There was evidence of chronic atrophy as well. Patient was essentially admitted to the hospital. His neurological examination reveals significant dysmetria with finger-nose testing and cufl-cx-noei testing on his left side. He is also complaining of the dizziness and tinnitus. These findings are suggesting vertebrobasilar and brainstem localization. We have recommended the patient undergo MRI of the brain for further evaluation for brainstem stroke. Patient underwent MRI of the brain today. We reviewed the results as well as the films and the MRI today. MRI reveals a large left cerebellar stroke. We did discuss the findings today with the patient and there was concern he may have embolic stroke. Patient states that last year he was seen for this previous stroke and did undergo SALINAS procedure. This he reports was normal with no evidence of PFO or atrial thrombus. Patient will like to hold off on repeating SALINAS procedure at this time. Cardiology did evaluate the patient as he did have a run of nonsustained V. tach. They have recommended SALINAS procedure for the patient. Patient declines SALINAS as he states he underwent the procedure last year which was normal. He underwent an MRA [place] of [place] which came back negative for any evidence of aneurysm. He is to continue with current inpatient therapies. Patient is to continue with his current medications for treatment of the acute stroke. He should be further evaluated by PT/OT for possible inpatient rehab placement. Patient has history of Jjpof-Dylvzvujr-Aigsq syndrome. He has been evaluated for ablation procedure in the past but refused this treatment. His overall prognosis at this time remains very guarded. We will continue to monitor his progress closely during this admission. Patient will need subacute rehab placement at the time of discharge. We are awaiting his insurance to be cleared [facility]. Patient has been having mild dizziness likely secondary to his cerebellar stroke. He denies any recent history of headache or nausea vomiting symptoms. His overall prognosis at this time remains guarded. We will continue close neurological follow-up of this patient during this admission.
[2017-06-23 07:30] LABS: Glucose,Whole Blood 110 mg/dL (75-99)
[2017-06-23] MEDS: INSULIN LISPRO (humaLOG) 300 UNIT/3 ML VIAL SQ SCH ×2 (08:10→13:30)
[2017-06-23] MEDS: HEPARIN SODIUM,PORCINE 5,000 UNIT/ML 1 ML VIAL SQ SCH (08:11)
[2017-06-23] MEDS: predniSONE 20 MG TAB PO SCH (08:11)
[2017-06-23] MEDS: PANTOPRAZOLE 40 MG TABLET PO SCH (08:11)
[2017-06-23] MEDS: ASPIRIN 325 MG TAB PO SCH (08:11)
[2017-06-23] MEDS: LOPERAMIDE 2 MG CAP PO SCH ×2 (08:18→12:02)
[2017-06-23 12:33] LABS: Glucose,Whole Blood 204 mg/dL (75-99)
[2017-06-23 13:59] LABS: Anisocytosis Slight; Basophils % (A) 0 %; CH 24.4; CHCM 30.8; Eosinophils % (A) 0 %; HCT 39.5 % (39.0-53.0); HDW 2.64; HGB 11.8 gm/dL (13.0-17.5); Hypochromasia Slight; Luc # (Auto) 0.07; Luc % (Auto) 1; Lymphocytes # (A) 0.5 k/uL (1.0-4.8); Lymphocytes % (A) 5 %; MCH 23.6 pg (25.0-35.0); MCHC 29.8 g/dL (31.0-37.0); MCV 79.4 fL (80.0-100.0); Mean Platelet Volume 7.3; Microcytosis Slight; Monocytes # (A) 0.3 k/uL (0-1.0); Monocytes % (A) 3 %; Neutrophils # (A) 9.2 k/uL (1.3-7.7); Neutrophils % (A) 92 %; RBC 4.97 m/uL (4.30-5.90); RDW 19.6 % (11.5-15.5); WBC (Perox) 10.66
[2017-06-23 14:13] LABS: Anion Gap 13 mmol/L; Blood Urea Nitrogen 41 mg/dL (9-20); Calcium 8.8 mg/dL (8.4-10.2); Carbon Dioxide 19 mmol/L (22-30); Chloride 100 mmol/L (98-107); Glucose 302 mg/dL (74-99); Non-African American GFR(MDRD) >60 (>60 ml/min/1.73 sqM); Potassium 4.6 mmol/L (3.5-5.1); Sodium 132 mmol/L (137-145)
[2017-06-23 14:59] VITALS: BP 157/89; PULSE 80; RESP 20; TEMP 97
--- NOTE | 2017-06-23 18:19 | P.DS ---
Providers Date of admission: 06/18/17 10:55 Attending physician: Alexandru Busby Consults: 06/17/17 20:05 Consult Physician Urgent Consulting Provider: Akanksha Teixeira Consult Reason/Comments: CVA Do you want consulting provider notified?: Yes Primary care physician[facility] Course: This 66-year-old gentleman being followed by Dr. Melchor and [facility] in the preceding was admitted with the dizziness weakness. Patient was suspected to have vertebrobasilar stroke. MRI of the brain showed acute infarct of the left superior cerebellar hemisphere. Patient had incoordination and unsteadiness of gait on the left side. [place] was contacted on a regular basis. Patient was seen by neurologist. Treated symptomatically. With antiplatelet agents. Patient improved significantly. PTOT was evaluated. Patient is able to ambulate with the walker. Please refer to physical therapy notes for further information. wirer street light and psychosocial rehabilitation counselor also was involved in the care of this patient. Ultimately the patient would like to go home and the patient be discharged in a stable condition with guarded prognosis after clearance from neurology. Once again please note patient is currently stable but overall prognosis remains guarded because of the patient's history and multiple strokes as well. Total time taken 35 minutes. On exam vitals stable. Cardio S1 and S2 normal. Abdomen soft nontender. Nervous system left eyelid incoordination and minimal weakness also present. The Final diagnosis 1. Acute left superior cerebellar hemisphere acute CVA and stroke possibly cerebral thrombosis causing dizziness and weakness. Vertebrobasilar stroke. 2. Gait dysfunction. 3. History of old left occipital stroke. 4. Leukocytosis. Next 5. Anemia macrocytic of undetermined etiology possibly chronic disease. 6. DJD 7. Nonsustained ventricular tachycardia spontaneously converted normal sinus rhythm. Patient Condition at Discharge: Stable Plan - Discharge Summary New Discharge Prescriptions: New Atorvastatin [Lipitor] 40 mg PO HS #30 tab Meclizine [Antivert] 12.5 mg PO TID PRN #20 tab PRN Reason: Vertigo Continue Acetaminophen Tab [Tylenol] 1,000 mg PO Q6H PRN PRN Reason: Pain Or Fever > 100.5 Loperamide HCl [Imodium A-D] 6 mg PO DAILY@0800 predniSONE 20 mg PO DAILY Ferrous Sulfate [Iron (65 MG Elemental)] 325 mg PO DAILY PRN PRN Reason: hemaglobin Aspirin 325 mg PO DAILY Albuterol Nebulized [Ventolin Nebulized] 2.5 mg INHALATION RT-Q6H PRN PRN Reason: Shortness Of Breath Loperamide [Imodium] 4 mg PO DAILY@1200,1800 Discharge Medication List Acetaminophen Tab [Tylenol] 1,000 mg PO Q6H PRN 02/09/17 [History] Loperamide HCl [Imodium A-D] 6 mg PO DAILY@0800 02/09/17 [History] Albuterol Nebulized [Ventolin Nebulized] 2.5 mg INHALATION RT-Q6H PRN 06/17/17 [ History] Aspirin 325 mg PO DAILY 06/17/17 [History] Ferrous Sulfate [Iron (65 MG Elemental)] 325 mg PO DAILY PRN 06/17/17 [History] Loperamide [Imodium] 4 mg PO DAILY@1200,1800 06/17/17 [History] predniSONE 20 mg PO DAILY 06/17/17 [History] Atorvastatin [Lipitor] 40 mg PO HS #30 tab 06/23/17 [Rx] Meclizine [Antivert] 12.5 mg PO TID PRN #20 tab 06/23/17 [Rx] Follow up Appointment(s)/Referral(s): Fermin Teixeira MD [STAFF PHYSICIAN] - 2 Weeks (Office states need auth number from primary care doctor prior to appointment. ) Atul Mejía DO [Primary Care Provider] - 3 Days ([facility]- office unavailable to make appointment at this time. Please call to schedule. Get referral and authorization number for Dr Linares appointment and then schedule that appointment. ) Ambulatory/Diagnostic Orders: Comprehensive Metabolic Panel [LAB.AMB] Time Frame: 3 Days, Location: Determined By Patient Patient Instructions/Handouts: Stroke (DC) Activity/Diet/Wound Care/Special Instructions: DIet: Cardiac, diabetic diet. Activity: limited until follow up. Glucometer and glucose strips ordered. Check blood sugar before meals and at bedtime and record. Take results to drs appointment for evaluation. Diabetic education classes outpatient references given. Discharge Disposition: HOME WITH HOME HEALTH SERVICES
== END 2017-06-23 15:39 | disposition home health service (06) | DRG 65 ==
LOC: EC 10:29 → 6SEL 12:44 → OBSVTOIN 06-18 10:55 → 4MS4W 06-21 18:36
PROVIDERS: ADMIT Internal Medicine; ATTEND Internal Medicine
DX: I63.342 Cerebral infarction due to thrombosis of left cerebellar artery (principal); I47.2 Ventricular tachycardia; E87.2 Acidosis; E86.0 Dehydration; K51.90 Ulcerative colitis, unspecified, without complications; G81.94 Hemiplegia, unspecified affecting left nondominant side; D50.9 Iron deficiency anemia, unspecified; E11.9 Type 2 diabetes mellitus without complications; D63.8 Anemia in other chronic diseases classified elsewhere; I10 Essential (primary) hypertension; I69.398 Other sequelae of cerebral infarction; D53.9 Nutritional anemia, unspecified; D72.829 Elevated white blood cell count, unspecified; N40.0 Benign prostatic hyperplasia without lower urinary tract symptoms; E78.00 Pure hypercholesterolemia, unspecified; R11.0 Nausea; J45.909 Unspecified asthma, uncomplicated; H91.90 Unspecified hearing loss, unspecified ear; M19.071 Primary osteoarthritis, right ankle and foot; H57.12 Ocular pain, left eye; I45.6 Pre-excitation syndrome; H53.8 Other visual disturbances; R51 Headache; R27.8 Other lack of coordination; H93.13 Tinnitus, bilateral; Z86.14 Personal history of Methicillin resistant Staphylococcus aureus infection; Z87.442 Personal history of urinary calculi; Z77.090 Contact with and (suspected) exposure to asbestos; Z82.49 Family history of ischemic heart disease and other diseases of the circulatory system; Z83.3 Family history of diabetes mellitus; Z79.82 Long term (current) use of aspirin; Z79.899 Other long term (current) drug therapy; Z71.3 Dietary counseling and surveillance; Z86.61 Personal history of infections of the central nervous system; Z87.440 Personal history of urinary (tract) infections; Z91.81 History of falling; Z87.81 Personal history of (healed) traumatic fracture; Z79.52 Long term (current) use of systemic steroids; Z91.19 Patient's noncompliance with other medical treatment and regimen; Z87.448 Personal history of other diseases of urinary system
CPT/HCPCS: 36415; 70450; 70544; 70553; 71020; 80048; 80053; 80061; 81001; 81003; 83036; 83605; 83735; 84132; 84484; 85025; 85610; 87324; 93005; 93306; 93880; 95819; 96360; 96361; 96372; 96374; 96375; 96376; 99285

== ENCOUNTER 2018-04-08 18:15 | Inpatient (IN) | payer OTHER ==
[2018-04-08] MEDS ORDERED: ONDANSETRON 4 MG/2 ML VIAL IVP STA (18:47)
[2018-04-08] MEDS ORDERED: SODIUM CHLORIDE 0.9% 1,000 ML IV ONE (18:47)
--- NOTE | 2018-04-08 18:55 | ED ---
Abdominal Pain HPI - General Chief Complaint: Abdominal Pain Stated Complaint: Rt flank pain Time Seen by Provider: 04/08/18 18:30 Source: patient Mode of arrival: ambulatory Limitations: no limitations - History of Present Illness Initial Comments: 67 yoM presenting with abdominal pain. Patient states it is RLQ, sharp and stabbing, constant, non-radiating and is not alleviated or exacerbated by anything. He states it is accompanied by nausea. He states he has a history of kidney stones, last one last year, that have never required stents or lithotripsy, and states this feels similar. He denies any difficulty urinating or hematuria. He also has a history of Crohn's disease but has never required a bowel resection and is currently well controlled with his immunotherapy. He states he has loose stools at baseline and there has been no recent change. He is still passing gas. He denies F/C/ chest pain, shortness of breath. Patient denies any history of aortic aneurysm and states that he did have a screening ultrasound. - Related Data Home Medications Medication Instructions Recorded Confirmed Acetaminophen Tab [Tylenol] 1,000 mg PO Q6H PRN 02/09/17 06/17/17 Loperamide HCl [Imodium A-D] 6 mg PO DAILY@0800 02/09/17 06/17/17 Albuterol Nebulized [Ventolin 2.5 mg INHALATION RT-Q6H PRN 06/17/17 06/17/17 Nebulized] Aspirin 325 mg PO DAILY 06/17/17 06/17/17 Ferrous Sulfate [Iron (65 MG 325 mg PO DAILY PRN 06/17/17 06/17/17 Elemental)] Loperamide [Imodium] 4 mg PO DAILY@1200,1800 06/17/17 06/17/17 predniSONE 20 mg PO DAILY 06/17/17 06/17/17 Previous Rx's Medication Instructions Recorded Atorvastatin [Lipitor] 40 mg PO HS #30 tab 06/23/17 Meclizine [Antivert] 12.5 mg PO TID PRN #20 tab 06/23/17 Allergies Allergy/AdvReac Type Severity Reaction Status Date / Time No Known Allergies Allergy Verified 04/08/18 18:27 Review of Systems ROS Statement: Those systems with pertinent positive or pertinent negative responses have been documented in the HPI. Review of Systems Constitutional: Denies fever, chills Eyes: Denies change in vision, Denies pain Ears, nose, mouth, throat: Denies headaches, Denies sore throat Cardiovascular: Denies chest pain. Denies palpitations Respiratory: Denies shortness of breath, Denies cough Gastrointestinal: Positive abdominal pain. Positive nausea. Denies vomiting, diarrhea. Genitourinary: Denies hematuria, Denies infections Musculoskeletal: Denies pain, Denies swelling Integumentary: Denies rash Neurological: Denies headache, focal weakness, focal numbness Psychiatric: Denies anxiety, Denies depression Hematologic/Lymphatic: Denies easy bleeding or bruising ROS Other: All systems not noted in ROS Statement are negative. Past Medical History Past Medical History: Asthma, CVA/TIA, Diabetes Mellitus, Hearing Disorder / Deafness, Prostate Disorder, Renal Disease Additional Past Medical History / Comment(s): STROKE -RESIDUAL HAS LOSS OF PERIPHERAL VISION, back pain, chronic ulcerative COLITIS, chronic diarrhea, BPH , ARTHRITIS R ankle, DJD, kidney stones, asbestos exposure in the [place], UTI, Crohn's disease, Mead Parkinson White syndrome. History of Any Multi-Drug Resistant Organisms: MRSA Date of last positivie culture/infection: January [address] ([address] [facility] per patient) MDRO Source:: Right Ankle and Back (per patient) Past Surgical History: Adenoidectomy, Orthopedic Surgery, Tonsillectomy Additional Past Surgical History / Comment(s): 01/2015 Laminectomy, discectomy with decompression L5-S1, I&D epidural abscess L5-S1 (STATED HAD MULTIPLE BX- BENIGN)and aspiration R ankle, 02/2015 I&D L5-S1 at [facility], Yearly colonoscopy . left wrist surgically repaired after fx-PLATE/SCREW. RT HIP TEVIN/SCREWS. Past Anesthesia/Blood Transfusion Reactions: No Reported Reaction Additional Past Anesthesia/Blood Transfusion Reaction / Comment(s): Pt states he recieved blood 02/2015 at [facility] without reaction. Past Psychological History: No Psychological Hx Reported Smoking Status: Never smoker Past Alcohol Use History: None Reported Past Drug Use History: None Reported - Past Family History Father Family Medical History: Myocardial Infarction (MA) Additional Family Medical History / Comment(s): Father of massive MA. Mother Family Medical History: Diabetes Mellitus General Exam - General Exam Comments Initial Comments: General: Awake, alert, No acute Distress HENT: Normocephalic. Atraumatic Eyes: PERRL. EOMI. No scleral icterus. No injected conjunctiva Neck: Full ROM Chest/Lungs: Clear to auscultation bilaterally. No wheezing, rhonchi, or rales Cardiac: Regular rate, rhythm. No murmurs or rubs. 2+ radial pulses bilaterally. 2+ DP pulses bilaterally. Abdomen/GI: [Soft, , nondistended. RLQ tenderness. No rebound, guarding, or rigidity. No abdominal bruit. Musculoskeletal: Full ROM Skin: Warm, dry, intact Neurologic: A/Ox3, no weakness, no sensory deficit, no abnormal gait, no coordination deficit Limitations: no limitations Course Vital Signs 04/08/18 04/08/18 18:24 22:03 Temperature 98.4 F Pulse Rate 85 91 Respiratory 18 20 Rate Blood Pressure 148/112 129/81 O2 Sat by Pulse 96 91 L Oximetry Medical Decision Making - Medical Decision Making 57-year-old male presenting with right-sided abdominal pain. Initial exam the patient is awake, alert, no acute distress. VSS. Laboratory workup revealed a leukocytosis. CT abdomen and pelvis showed a 5 mm ureteral stone and a possible forniceal tear. At this time the patient requires admission for evaluation by urology. Patient was having difficulty with urination so was treated with Rocephin for possible infected stone secondary to his leukocytosis. I spoke with Dr. Rausch who is agreeable to admission with urology on consult. - Lab Data Result diagrams: 04/08/18 19:05 04/08/18 19:05 Lab Results 04/08/18 04/08/18 Range/Units 19:05 19:05 WBC 13.8 H (3.8-10.6) k/uL RBC 4.63 (4.30-5.90) m/uL Hgb 14.1 (13.0-17.5) gm/dL Hct 42.3 (39.0-53.0) % MCV 91.3 (80.0-100.0) fL MCH 30.4 (25.0-35.0) pg MCHC 33.3 (31.0-37.0) g/dL RDW 19.9 H (11.5-15.5) % Plt Count 193 (150-450) k/uL Neutrophils % 85 % Lymphocytes % 8 % Monocytes % 6 % Eosinophils % 0 % Basophils % 0 % Neutrophils # 11.7 H (1.3-7.7) k/uL Lymphocytes # 1.1 (1.0-4.8) k/uL Monocytes # 0.8 (0-1.0) k/uL Eosinophils # 0.0 (0-0.7) k/uL Basophils # 0.0 (0-0.2) k/uL Anisocytosis Slight Sodium 140 (137-145) mmol/L Potassium 3.7 (3.5-5.1) mmol/L Chloride 107 (98-107) mmol/L Carbon Dioxide 28 (22-30) mmol/L Anion Gap 5 mmol/L BUN 24 H (9-20) mg/dL Creatinine 1.10 (0.66-1.25) mg/dL Est GFR (CKD-EPI)AfAm 81 (>60 ml/min/1.73 sqM) Est GFR (CKD-EPI)NonAf 70 (>60 ml/min/1.73 sqM) Glucose 149 H (74-99) mg/dL Calcium 9.3 (8.4-10.2) mg/dL Disposition Clinical Impression: Acute unilateral obstructive uropathy Disposition: ADMITTED IP TO THIS HOSP Condition: Good Referrals: [facility],Clinic [Primary Care Provider] - 1-2 days Decision Date: 04/08/18 Decision Time: 21:56
[2018-04-08 19:22] LABS: Anisocytosis Slight; Basophils % (A) 0 %; Eosinophils % (A) 0 %; HCT 42.3 % (39.0-53.0); HGB 14.1 gm/dL (13.0-17.5); Lymphocytes # (A) 1.1 k/uL (1.0-4.8); Lymphocytes % (A) 8 %; MCH 30.4 pg (25.0-35.0); MCHC 33.3 g/dL (31.0-37.0); MCV 91.3 fL (80.0-100.0); Mean Platelet Volume 6.7; Monocytes # (A) 0.8 k/uL (0-1.0); Monocytes % (A) 6 %; Neutrophils # (A) 11.7 k/uL (1.3-7.7); Neutrophils % (A) 85 %; Platelet Count 193 k/uL (150-450); RBC 4.63 m/uL (4.30-5.90); RDW 19.9 % (11.5-15.5); WBC 13.8 k/uL (3.8-10.6)
[2018-04-08 19:32] LABS: Calcium 9.3 mg/dL (8.4-10.2); Potassium 3.7 mmol/L (3.5-5.1)
--- NOTE | 2018-04-08 19:50 | CT ---
EXAMINATION TYPE: CT abdomen pelvis wo con DATE OF EXAM: 04/08/2018 COMPARISON: CT abdomen pelvis 06/28/2013 HISTORY: Right flank pain CT DLP: 1100.9 mGycm Automated exposure control for dose reduction was used. TECHNIQUE: Helical acquisition of images from the lung bases through the pelvis. FINDINGS: LUNG BASES: Similar appearance, there is likely some minimal basilar atelectasis, chronic elevation o f the right hemidiaphragm with eventration, there is extensive epicardial and mediastinal fat. Salomon ry artery calcifications are dense. Partial intrathoracic stomach present. AORTA: No significant abnormality is appreciated. LIVER/GB: Stable, there may be hepatic steatosis, liver is enlarged PANCREAS: No significant abnormality is seen. SPLEEN: No significant abnormality is seen. ADRENALS: Atrophic. KIDNEYS: Interval resolution of the left-sided hydronephrosis and left ureteral calcification, small calcifications present at the upper pole the left kidney are noted. Nonobstructive right kidney calci fication is punctate, there is a cortical cyst at the upper pole similar to prior, there is hydroneph rosis or perinephric fluid, hydroureter is present, there is a calcification at the distal right uret er measuring approximately 5 mm. REPRODUCTIVE ORGANS: Prostate shows some associated calcification similar to prior. URINARY BLADDER: There is a bladder calculus measuring approximately 2 cm in size which is developed in the interval. BOWEL: No significant abnormality is seen. Left and right inguinal hernias contain fat. FREE AIR: No Free Air is visible. ASCITES: None visible. PELVIC ADENOPATHY: None visualized. RETROPERITONEAL ADENOPATHY: No Retroperitoneal Adenopathy visible. OSSEOUS STRUCTURES: Bones are osteopenic, multiple compression fractures are present at L1, T12, T11 with resulting kyphosis. Postop change noted to the right proximal femur. Suspect spinal stenosis at L4-5 IMPRESSION: NEPHROLITHIASIS BILATERALLY, DISTAL RIGHT URETERAL CALCULUS WITH OBSTRUCTION, THERE MAY BE CHANGES OF FORNICEAL RUPTURE. Bladder calculus. Noncontrast exam. Additional findings above.
[2018-04-08] MEDS ORDERED: HYDROcodone/APAP 5-325MG 1 EACH TAB PO STA (19:52)
[2018-04-08] MEDS ORDERED: cefTRIAXone IN SWFI 1,000 MG/10 ML SYRINGE IVP STA (20:10)
[2018-04-08] MEDS ORDERED: MORPHINE SULFATE 4 MG/ML SYRINGE IVP STA (20:10)
[2018-04-08] MEDS: SODIUM CHLORIDE 0.9% 1,000 ML IV SCH (20:41)
[2018-04-08] MEDS ORDERED: IBUPROFEN 400 MG TAB PO PRN (21:56)
[2018-04-08] MEDS ORDERED: NALOXONE 0.4 MG/ML 1 ML VIAL IV PRN (21:56)
[2018-04-08] MEDS ORDERED: HYDROcodone/APAP 5-325MG 1 EACH TAB PO PRN (21:56)
[2018-04-08] MEDS ORDERED: ONDANSETRON 4 MG/2 ML VIAL IVP PRN (21:56)
[2018-04-08] MEDS ORDERED: ALBUTEROL NEBULIZED 2.5 MG/3 ML INHALATION PRN (21:59)
[2018-04-08] MEDS ORDERED: MECLIZINE 25 MG TAB PO PRN (21:59)
[2018-04-08] MEDS ORDERED: FERROUS SULFATE 325 MG TAB PO PRN (21:59)
[2018-04-08 22:40] LABS: Appearance,Urine Clear (Clear); Bilirubin,Urine Negative (Negative); Blood,Urine Moderate (Negative); Color,Urine Yellow; Glucose,Urine (UA) 1+ (Negative); Ketones,Urine 1+ (Negative); Leukocyte Esterase,Urine Negative (Negative); Mucus,Urine Rare /hpf; Nitrite,Urine Negative (Negative); PH, Urine 5.5 (5.0-8.0); Protein,Urine Trace (Negative); RBC,Urine 23 /hpf (0-5); Specific Gravity,Urine 1.021 (1.001-1.035); Urobilinogen,Urine <2.0 mg/dL (<2.0); WBC,Urine 2 /hpf (0-5)
[2018-04-09] MEDS: MORPHINE SULFATE 4 MG/ML SYRINGE IV PRN ×2 (01:33→09:01)
[2018-04-09] MEDS: SODIUM CHLORIDE 0.9% 1,000 ML IV SCH ×4 (01:38→17:48)
[2018-04-09 08:05] LABS: Glucose,Whole Blood 131 mg/dL (75-99)
[2018-04-09 08:58] LABS: Anisocytosis Slight; Basophils % (A) 0 %; Eosinophils % (A) 0 %; HCT 41.5 % (39.0-53.0); HGB 13.8 gm/dL (13.0-17.5); Lymphocytes # (A) 0.9 k/uL (1.0-4.8); Lymphocytes % (A) 7 %; MCH 30.7 pg (25.0-35.0); MCHC 33.2 g/dL (31.0-37.0); MCV 92.4 fL (80.0-100.0); Mean Platelet Volume 6.8; Monocytes % (A) 8 %; Neutrophils # (A) 10.9 k/uL (1.3-7.7); Neutrophils % (A) 84 %; Platelet Count 191 k/uL (150-450); RBC 4.49 m/uL (4.30-5.90); RDW 19.7 % (11.5-15.5)
[2018-04-09] MEDS ORDERED: predniSONE 20 MG TAB PO SCH (09:00)
[2018-04-09 09:11] LABS: Calcium 8.4 mg/dL (8.4-10.2); Potassium 3.6 mmol/L (3.5-5.1)
--- NOTE | 2018-04-09 10:11 | P.GSCN ---
History of Present Illness Consult date: 04/09/18 Reason for Consult: Ureteral Calculus Requesting physician: Sage Rausch History of present illness: The patient is a 67-year-old white male with a history of recurrent urolithiasis , none of which have required surgery. Yesterday, he experienced acute onset of right lower quadrant abdominal pain, associated with nausea and vomiting. He also reported significant urinary frequency. His symptoms are somewhat improved today. 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 History of Any Multi-Drug Resistant Organisms: MRSA Year Discovered:: January 2015 (At [facility] per patient) MDRO Source:: Right Ankle and Back (per patient) Past Surgical History: Adenoidectomy, Orthopedic Surgery, Tonsillectomy Additional Past Surgical History / Comment(s): 01/2015 Laminectomy, discectomy with decompression L5-S1, I&D epidural abscess L5-S1 (STATED HAD MULTIPLE BX- BENIGN)and aspiration R ankle, 02/2015 I&D L5-S1 at [facility] [place], Yearly colonoscopy . left wrist surgically repaired after fx-PLATE/SCREW. RT HIP TEVIN/SCREWS. Past Anesthesia/Blood Transfusion Reactions: No Reported Reaction Additional Past Anesthesia/Blood Transfusion Reaction / Comm: Pt states he recieved blood 02/2015 at [facility] without reaction. Past Psychological History: No Psychological Hx Reported Additional Psychological History / Comment(s): Pt resides alone. DRIVES. He has 6 dogs. . He is independent. He no longer is using any home care. 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 Smoking Status: Never smoker Past Alcohol Use History: None Reported Additional Past Alcohol Use History / Comment(s): Patient has a history of smoking marijuana half ounce per day and quit in 1998. He denies any history of smoking cigarettes. He denies any alcohol use SINCE 1975. Patient is worked in the [place] and had exposure to asbestos. He is currently living alone with 7 dogs. Past Drug Use History: None Reported - Past Family History Father Family Medical History: Myocardial Infarction ([place]) Additional Family Medical History / Comment(s): Father of massive [place]. Mother Family Medical History: Diabetes Mellitus Medications and Allergies Home Medications Medication Instructions Recorded Confirmed Type Acetaminophen Tab [Tylenol] 1,000 mg PO Q6H PRN 02/09/17 06/17/17 History Loperamide HCl [Imodium A-D] 6 mg PO DAILY@0800 02/09/17 06/17/17 History Albuterol Nebulized [Ventolin 2.5 mg INHALATION RT-Q6H PRN 06/17/17 06/17/17 History Nebulized] Aspirin 325 mg PO DAILY 06/17/17 06/17/17 History Ferrous Sulfate [Iron (65 MG 325 mg PO DAILY PRN 06/17/17 06/17/17 History Elemental)] Loperamide [Imodium] 4 mg PO DAILY@1200,1800 06/17/17 06/17/17 History predniSONE 20 mg PO DAILY 06/17/17 06/17/17 History Atorvastatin [Lipitor] 40 mg PO HS #30 tab 06/23/17 Rx Meclizine [Antivert] 12.5 mg PO TID PRN #20 tab 06/23/17 Rx Allergies Allergy/AdvReac Type Severity Reaction Status Date / Time No Known Allergies Allergy Verified 04/09/18 09:42 Surgical - Exam Vital Signs Temp Pulse Resp BP Pulse Ox 98.4 F 85 18 148/112 96 04/08/18 18:24 04/08/18 18:24 04/08/18 18:24 04/08/18 18:24 04/08/18 18:24 - General well developed, well nourished, moderate pain - Respiratory normal respiratory effort - Abdomen Abdomen: soft, tender (Mild right lower quadrant tenderness to palpation), no masses, no guarding, no rigid, no rebound, no distended - Genitourinary normal penis with no external lesions, testicles non-tender - Psychiatric oriented to time, oriented to person, oriented to place, speech is normal, memory intact Results - Labs 04/09/18 08:15 04/09/18 08:15 Abnormal Lab Results - Last 24 Hours (Table) 04/08/18 04/08/18 04/08/18 Range/Units 19:05 19:05 20:11 WBC 13.8 H (3.8-10.6) k/uL RDW 19.9 H (11.5-15.5) % Neutrophils # 11.7 H (1.3-7.7) k/uL Lymphocytes # (1.0-4.8) k/uL Chloride (98-107) mmol/L BUN 24 H (9-20) mg/dL Glucose 149 H (74-99) mg/dL POC Glucose (mg/dL) (75-99) mg/dL Urine Protein Trace H (Negative) Urine Glucose (UA) 1+ H (Negative) Urine Ketones 1+ H (Negative) Urine Blood Moderate H (Negative) Urine RBC 23 H (0-5) /hpf Urine Mucus Rare H (None) /hpf 04/09/18 04/09/18 04/09/18 Range/Units 07:54 08:15 08:15 WBC 13.0 H (3.8-10.6) k/uL RDW 19.7 H (11.5-15.5) % Neutrophils # 10.9 H (1.3-7.7) k/uL Lymphocytes # 0.9 L (1.0-4.8) k/uL Chloride 109 H (98-107) mmol/L BUN 24 H (9-20) mg/dL Glucose 114 H (74-99) mg/dL POC Glucose (mg/dL) 131 H (75-99) mg/dL Urine Protein (Negative) Urine Glucose (UA) (Negative) Urine Ketones (Negative) Urine Blood (Negative) Urine RBC (0-5) /hpf Urine Mucus (None) /hpf Diabetes panel 04/08/18 04/09/18 Range/Units 19:05 08:15 Sodium 140 142 (137-145) mmol/L Potassium 3.7 3.6 (3.5-5.1) mmol/L Chloride 107 109 H (98-107) mmol/L Carbon Dioxide 28 27 (22-30) mmol/L BUN 24 H 24 H (9-20) mg/dL Creatinine 1.10 1.14 (0.66-1.25) mg/dL Glucose 149 H 114 H (74-99) mg/dL Calcium 9.3 8.4 (8.4-10.2) mg/dL Calcium panel 04/08/18 04/09/18 Range/Units 19:05 08:15 Calcium 9.3 8.4 (8.4-10.2) mg/dL Pituitary panel 04/08/18 04/09/18 Range/Units 19:05 08:15 Sodium 140 142 (137-145) mmol/L Potassium 3.7 3.6 (3.5-5.1) mmol/L Chloride 107 109 H (98-107) mmol/L Carbon Dioxide 28 27 (22-30) mmol/L BUN 24 H 24 H (9-20) mg/dL Creatinine 1.10 1.14 (0.66-1.25) mg/dL Glucose 149 H 114 H (74-99) mg/dL Calcium 9.3 8.4 (8.4-10.2) mg/dL Adrenal panel 04/08/18 04/09/18 Range/Units 19:05 08:15 Sodium 140 142 (137-145) mmol/L Potassium 3.7 3.6 (3.5-5.1) mmol/L Chloride 107 109 H (98-107) mmol/L Carbon Dioxide 28 27 (22-30) mmol/L BUN 24 H 24 H (9-20) mg/dL Creatinine 1.10 1.14 (0.66-1.25) mg/dL Glucose 149 H 114 H (74-99) mg/dL Calcium 9.3 8.4 (8.4-10.2) mg/dL - Imaging CT scan - abdomen: report reviewed, image reviewed Assessment and Plan (1) Calculus of ureter Current Visit: Yes Status: Acute Code(s): N20.1 - CALCULUS OF URETER SNOMED Code(s): 43484668 (2) Hydronephrosis due to obstruction of ureter Current Visit: Yes Status: Acute Code(s): N13.2 - HYDRONEPHROSIS WITH RENAL AND URETERAL CALCULOUS OBSTRUCTION SNOMED Code(s): 416929558 (3) Bladder calculus Current Visit: Yes Status: Acute Code(s): N21.0 - CALCULUS IN BLADDER SNOMED Code(s): 43158274 Plan: The patient is a 67-year-old male with a history of recurrent urolithiasis, almost certainly due to his Crohn's disease. He now presents with right renal colic due to a 5 mm right distal ureteral calculus. The CT scan shows significant perinephric stranding, suggestive of a possible forniceal rupture. The CT scan also reveals a 2 cm bladder calculus. I have suggested he undergo cystoscopy, right ureteroscopy with Holmium laser lithotripsy, and cystolithotripsy. The procedure was reviewed in detail with the patient. Potential risks include anesthesia, bleeding, infection, ureteral injury, and bladder perforation. He understands the possible need for ureteral stent postoperatively, as well as a Treviño catheter. Time with Patient: Greater than 30
[2018-04-09 12:22] LABS: Glucose,Whole Blood 132 mg/dL (75-99)
[2018-04-09] MEDS ORDERED: IV FLUID CONTINUATION 1,000 ML IV ONE (14:02)
[2018-04-09] MEDS ORDERED: HYDROCORTISONE SUCCINATE 100 MG/2 ML VIAL IVP ONE (14:10)
[2018-04-09] MEDS ORDERED: LACTATED RINGERS 1,000 ML IV ONE (14:11)
[2018-04-09 14:14] LABS: Glucose,Whole Blood 142 mg/dL (75-99)
[2018-04-09] MEDS ORDERED: fentaNYL (PF) 50 MCG/ML 2 ML AMP ONE (15:10)
[2018-04-09] MEDS ORDERED: GLYCOPYRROLATE 0.2 MG/ML 2 ML VIAL ONE (15:10)
[2018-04-09] MEDS ORDERED: NEOSTIGMINE 1 MG/ML 10 ML VIAL ONE (15:10)
[2018-04-09] MEDS ORDERED: ROCURONIUM BROMIDE 10 MG/ML 10 ML VIAL IV ONE (15:10)
[2018-04-09] MEDS ORDERED: MIDAZOLAM 2 MG/2 ML VIAL ONE (15:10)
[2018-04-09] MEDS ORDERED: PROPOFOL 10 MG/ML 20 ML VIAL IV ONE (15:10)
[2018-04-09] MEDS ORDERED: LIDOCAINE 1% INJ 10MG/ML (20 ML MDV) ONE (15:10)
[2018-04-09] MEDS ORDERED: SODIUM CHLORIDE 0.9% 50 ML with ceFAZolin 1,000 MG IV ONE ×2 (15:28)
[2018-04-09] MEDS ORDERED: IOPAMIDOL-370 50ML BTL IRRIGATION ONE (15:35)
--- NOTE | 2018-04-09 16:27 | P.OP ---
Date of Procedure: 04/09/18 Preoperative Diagnosis: Right ureteral calculus, bladder calculus Postoperative Diagnosis: Bladder calculus, passed right ureteral calculus Procedure(s) Performed: Cystoscopy, right retrograde pyelogram, right ureteroscopy, cystolithotripsy Anesthesia: ENRIQUE Surgeon: Demian Segundo Estimated Blood Loss (ml): 20 IV fluids (ml): 600 Pathology: other (Bladder calculus fragments) Condition: stable Disposition: PACU Indications for Procedure: The patient is a 67-year-old male with a history of recurrent urolithiasis, almost certainly due to his Crohn's disease. He now presents with right renal colic due to a 5 mm right distal ureteral calculus. The CT scan shows significant perinephric stranding, suggestive of a possible forniceal rupture. The CT scan also reveals a 2 cm bladder calculus. I have suggested he undergo cystoscopy, right ureteroscopy with Holmium laser lithotripsy, and cystolithotripsy. The procedure was reviewed in detail with the patient. Potential risks include anesthesia, bleeding, infection, ureteral injury, and bladder perforation. He understands the possible need for ureteral stent postoperatively, as well as a Treviño catheter. Operative Findings: 1) Passed right ureteral calculus. 2) Trilobar BPH. 3) 2 cm bladder calculus. Description of Procedure: The patient was taken to the operating room and placed in the dorsal lithotomy position, with legs supported in Andrei stirrups. The external genitalia was prepped and draped sterilely. The 30 lens was used to introduce the 19-Malaysian Stortz cystoscopic sheath through the urethra and into the bladder under direct vision. The urethra appeared normal. The prostate showed evidence of trilobar enlargement, with an intravesical median lobe, and was visually occluded. The bladder was examined in its entirety. The ureteral orifices appeared normal. A total of 2 calculi were seen, one measuring approximately 2 cm and the other approximately 5 mm. No tumors were seen. No diverticuli were seen. Using a cone-tipped catheter, a right retrograde pyelogram was performed. It was difficult to cannulate the right ureteral orifice, due to the patient's intravesical median lobe resulting in J hooking of the distal ureter. The distal ureter appeared dilated. A calculus was not seen with certainty. The cystoscope was removed, and the ACMI rigid ureteroscope was advanced into the bladder under direct vision. The right ureteral orifice was carefully cannulated, and was then advanced under direct vision. The ureteroscope was advanced up to the right mid ureter, and a calculus was not seen. The ureter was dilated. The ureteroscope was slowly withdrawn under direct vision. The cystoscope was again passed into the bladder. The 550 micron Holmium laser probe was passed through the cystoscope, and lithotripsy was performed. Lithotripsy was continued until all calculus fragments could be removed using the [employer] evacuator. Once this was completed, the bladder was inspected. There was no active bleeding, and no evidence of bladder perforation. An 18- Malaysian Treviño catheter was placed. The return was essentially clear. The patient tolerated the procedure well was taken to the recovery room in stable condition.
[2018-04-09] MEDS ORDERED: ACETAMINOPHEN TAB 500 MG TAB PO PRN (17:51)
[2018-04-09] MEDS ORDERED: SYMBICORT 160-4.5 MCG INHALER INHALATION PRN (17:51)
[2018-04-09] MEDS ORDERED: ALBUTEROL INHALER 60 PUFF/8 GM INHALER INHALATION PRN (17:51)
--- NOTE | 2018-04-09 17:56 | P.HPIM ---
History of Present Illness 62-year-old male came in with complains of right upper quadrant sharp pain nonradiating is was some nausea found to have nephrolithiasis patient underwent cystoscopy and right ureteroscopy patient pain is on the right side. Patient denied any fevers dysuria patient does not have any leukocytosis and urine UA showed RBCs. Patient denied any fever chills patient does have leukocytosis which is reactive in nature. Patient does have history of Crohn's disease leading to recurrent nephrolithiasis. Urology is recommending one more day of hospital is and monitoring. Patient had a 5 mm right ureteral calculi and a 2 cm calculi in the bladder. Review of Systems REVIEW OF SYSTEMS: CONSTITUTIONAL: No fever, no malaise, no fatigue. HEENT: No recent visual problems or hearing problems. Denied any sore throat. CARDIOVASCULAR: No chest pain, orthopnea, PND, no palpitations, no syncope. PULMONARY: No shortness of breath, no cough, no hemoptysis. GASTROINTESTINAL: No diarrhea, NEUROLOGICAL: No headaches, no weakness, no numbness. HEMATOLOGICAL: Denies any bleeding or petechiae. GENITOURINARY: As mentioned in HPI MUSCULOSKELETAL/RHEUMATOLOGICAL: Denies any joint pain, swelling, or any muscle pain. ENDOCRINE: Denies any polyuria or polydipsia. The rest of the 14-point review of systems is negative. 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 History of Any Multi-Drug Resistant Organisms: MRSA Date of last positivie culture/infection: January 2015 (At [facility] per patient) MDRO Source:: Right Ankle and Back (per patient) Past Surgical History: Adenoidectomy, Orthopedic Surgery, Tonsillectomy Additional Past Surgical History / Comment(s): 01/2015 Laminectomy, discectomy with decompression L5-S1, I&D epidural abscess L5-S1 (STATED HAD MULTIPLE BX- BENIGN)and aspiration R ankle, 02/2015 I&D L5-S1 at [facility] [place], Yearly colonoscopy . left wrist surgically repaired after fx-PLATE/SCREW. RT HIP TEVIN/SCREWS. Past Anesthesia/Blood Transfusion Reactions: No Reported Reaction Additional Past Anesthesia/Blood Transfusion Reaction / Comment(s): Pt states he recieved blood 02/2015 at [facility] without reaction. Past Psychological History: No Psychological Hx Reported Additional Psychological History / Comment(s): Pt resides alone. DRIVES. He has 6 dogs. . He is independent. He no longer is using any home care. [place] the [place] 4 yrs[place]STATED LAST JOB HE WORKED WAS IN A [employer]. Smoking Status: Never smoker Past Alcohol Use History: None Reported Additional Past Alcohol Use History / Comment(s): Patient has a history of smoking marijuana half ounce per day and quit in 1998. He denies any history of smoking cigarettes. He denies any alcohol use SINCE 1975. Patient is worked in the [employer] and had exposure to asbestos. He is currently living alone with 7 dogs. Past Drug Use History: None Reported - Past Family History Father Family Medical History: Myocardial Infarction ([place]) Additional Family Medical History / Comment(s): Father of massive [place]. Mother Family Medical History: Diabetes Mellitus Medications and Allergies Home Medications Medication Instructions Recorded Confirmed Type Acetaminophen Tab [Tylenol] 1,000 mg PO Q6H PRN 02/09/17 04/09/18 History Aspirin 325 mg PO DAILY 06/17/17 04/09/18 History Loperamide [Imodium] 4 mg PO DAILY@1200,1800 06/17/17 04/09/18 History Albuterol Sulfate [Proair Hfa] 2 puff INHALATION RT-Q6H PRN 04/09/18 04/09/18 History Budesonide/Formoterol Fumarate 2 puff INHALATION RT-BID PRN 04/09/18 04/09/18 History [Symbicort 160-4.5 Mcg Inhaler] Cholecalciferol (Vitamin D3) 2,000 unit PO DAILY 04/09/18 04/09/18 History [Vitamin D3] Folic Acid 1 mg PO DAILY 04/09/18 04/09/18 History Lisinopril [Zestril] 2.5 mg PO DAILY 04/09/18 04/09/18 History Methotrexate Sodium [Methotrexate] 12.5 mg PO EM 04/09/18 04/09/18 History Simvastatin [Zocor] 80 mg PO HS 04/09/18 04/09/18 History glyBURIDE [Diabeta] 5 mg PO AC-BID 04/09/18 04/09/18 History predniSONE 5 mg PO DAILY 04/09/18 04/09/18 History Allergies Allergy/AdvReac Type Severity Reaction Status Date / Time No Known Allergies Allergy Verified 04/09/18 09:42 Physical Exam Vitals: Vital Signs Temp Pulse Pulse Resp BP BP Pulse Ox 04/09/18 17:04 88 16 135/64 94 L 04/09/18 16:49 86 16 135/62 94 L 04/09/18 16:34 96.8 F L 81 14 138/78 92 L 04/09/18 16:00 16 04/09/18 14:14 96 16 97 04/09/18 14:01 98.3 F 103 H 16 155/96 93 L 04/09/18 07:52 97.8 F 103 H 18 139/88 92 L 04/09/18 00:36 97 20 138/86 98 04/08/18 22:03 91 20 129/81 91 L 04/08/18 18:24 98.4 F 85 18 148/112 96 Intake and Output 04/09/18 04/09/18 04/09/18 06:59 14:59 22:59 Intake Total 1300 100 700 Output Total 50 1150 60 Balance 1250 -1050 640 Intake: IV 100 700 Amount of Fluid Infused ( 1300 ml) Output: Urine 50 1150 40 Estimated Blood Loss 20 Other: Voiding Method Urinal Urinal # Voids 8 PHYSICAL EXAMINATION: GENERAL: The patient is alert and oriented x3, not in any acute distress. Well developed, well nourished. HEENT: Pupils are round and equally reacting to light. EOMI. No scleral icterus. No conjunctival pallor. Normocephalic, atraumatic. No pharyngeal erythema. No thyromegaly. CARDIOVASCULAR: S1 and S2 present. No murmurs, rubs, or gallops. PULMONARY: Chest is clear to auscultation, no wheezing or crackles. ABDOMEN: Soft, nontender, nondistended, normoactive bowel sounds. No palpable organomegaly. MUSCULOSKELETAL: No joint swelling or deformity. EXTREMITIES: No cyanosis, clubbing, or pedal edema. NEUROLOGICAL: Gross neurological examination did not reveal any focal deficits. SKIN: No rashes. Results CBC & Chem 7: 04/09/18 08:15 04/09/18 08:15 Labs: Abnormal Lab Results - Last 24 Hours (Table) 04/08/18 04/08/18 04/08/18 Range/Units 19:05 19:05 20:11 WBC 13.8 H (3.8-10.6) k/uL RDW 19.9 H (11.5-15.5) % Neutrophils # 11.7 H (1.3-7.7) k/uL Lymphocytes # (1.0-4.8) k/uL Chloride (98-107) mmol/L BUN 24 H (9-20) mg/dL Glucose 149 H (74-99) mg/dL POC Glucose (mg/dL) (75-99) mg/dL Urine Protein Trace H (Negative) Urine Glucose (UA) 1+ H (Negative) Urine Ketones 1+ H (Negative) Urine Blood Moderate H (Negative) Urine RBC 23 H (0-5) /hpf Urine Mucus Rare H (None) /hpf 04/09/18 04/09/18 04/09/18 Range/Units 07:54 08:15 08:15 WBC 13.0 H (3.8-10.6) k/uL RDW 19.7 H (11.5-15.5) % Neutrophils # 10.9 H (1.3-7.7) k/uL Lymphocytes # 0.9 L (1.0-4.8) k/uL Chloride 109 H (98-107) mmol/L BUN 24 H (9-20) mg/dL Glucose 114 H (74-99) mg/dL POC Glucose (mg/dL) 131 H (75-99) mg/dL Urine Protein (Negative) Urine Glucose (UA) (Negative) Urine Ketones (Negative) Urine Blood (Negative) Urine RBC (0-5) /hpf Urine Mucus (None) /hpf 04/09/18 04/09/18 Range/Units 12:14 14:07 WBC (3.8-10.6) k/uL RDW (11.5-15.5) % Neutrophils # (1.3-7.7) k/uL Lymphocytes # (1.0-4.8) k/uL Chloride (98-107) mmol/L BUN (9-20) mg/dL Glucose (74-99) mg/dL POC Glucose (mg/dL) 132 H 142 H (75-99) mg/dL Urine Protein (Negative) Urine Glucose (UA) (Negative) Urine Ketones (Negative) Urine Blood (Negative) Urine RBC (0-5) /hpf Urine Mucus (None) /hpf Thrombosis Risk Factor Assmnt - Choose All That Apply Each Factor Represents 1 point: Minor surgery planned Other Risk Factors: Yes Each Risk Factor Represents 2 Points: Age 61-74 years Each Risk Factor Represents 3 Points: History of DVT/PE Other congenital or acquired thrombophilia - If yes, enter type in comment: No Thrombosis Risk Factor Assessment Total Risk Factor Score: 6 Thrombosis Risk Factor Assessment Level: High Risk Assessment and Plan Plan: -Right-sided nephrolithiasis status post cystoscopy and urethroscopy. Extraction of the stone will continue with IV fluids for possibility of discharge tomorrow. 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
[2018-04-09 18:12] LABS: Glucose,Whole Blood 175 mg/dL (75-99)
[2018-04-09] MEDS ORDERED: SIMVASTATIN 80 MG PO SCH (21:00)
[2018-04-09] MEDS ORDERED: ATORVASTATIN 40 MG TAB PO SCH ×2 (21:00)
[2018-04-09 21:15] LABS: Glucose,Whole Blood 269 mg/dL (75-99)
[2018-04-10] MEDS: SODIUM CHLORIDE 0.9% 1,000 ML IV SCH ×4 (00:21→12:57)
[2018-04-10] MEDS ORDERED: glipiZIDE 10 MG TAB PO SCH (07:30)
[2018-04-10] MEDS: LOPERAMIDE 2 MG CAP PO SCH ×2 (07:38→12:56)
--- NOTE | 2018-04-10 07:43 | P.PN ---
Progress Note - Text Progress Note Date: 04/10/18 Mr. Betancourt feels good this morning. Specifically, he denies flank and back pain. He reports occasional urgency as a result of the Treviño catheter. The catheter is draining blood-tinged urine. He is urologically stable for discharge. Arrangements will be made for him to undergo removal of his catheter in the office tomorrow. A prescription for tamsulosin was sent.
[2018-04-10 07:48] VITALS: RESP 18
[2018-04-10 07:54] LABS: Glucose,Whole Blood 165 mg/dL (75-99)
--- NOTE | 2018-04-10 08:04 | FL ---
Fluoroscopy HISTORY: Bladder stone, distal ureteral calculus 6 seconds fluoroscopy time supplied to the referring clinician. 1 intraoperative C-arm images docume nt the procedure. See dictated report from urology.
[2018-04-10] MEDS ORDERED: predniSONE 5 MG TAB PO SCH (09:00)
[2018-04-10] MEDS ORDERED: TAMSULOSIN 0.4 MG CAP.ER.24H PO SCH (09:00)
[2018-04-10] MEDS ORDERED: ASPIRIN 325 MG TAB PO SCH (09:00)
[2018-04-10 12:27] LABS: Glucose,Whole Blood 109 mg/dL (75-99)
[2018-04-10 15:41] VITALS: BP 133/83; PULSE 95; TEMP 97.9
--- NOTE | 2018-04-10 18:16 | P.DS ---
Providers Date of admission: 04/08/18 22:00 Attending physician: Sage Rausch MD Consults: 04/08/18 21:57 Consult Physician Routine Consulting Provider: Demian Segundo Consult Reason/Comments: Obstructive uropathy with possible forniceal rupture Do you want consulting provider notified?: Yes Primary care physician: [facility] Course: 62-year-old male came in with complains of right upper quadrant sharp pain nonradiating is was some nausea found to have nephrolithiasis patient underwent cystoscopy and right ureteroscopy patient pain is on the right side. Patient denied any fevers dysuria patient does not have any leukocytosis and urine UA showed RBCs. Patient denied any fever chills patient does have leukocytosis which is reactive in nature. Patient does have history of Crohn's disease leading to recurrent nephrolithiasis. Urology is recommending one more day of hospital is and monitoring. Patient had a 5 mm right ureteral calculi and a 2 cm calculi in the bladder. 04/10/2018 Patient denied any pain patient is clinically doing well cleared by urology to be discharged follow-up with urology as an outpatient for removal of catheter tomorrow. PHYSICAL EXAMINATION: GENERAL: The patient is alert and oriented x3, not in any acute distress. Well developed, well nourished. HEENT: Pupils are round and equally reacting to light. EOMI. No scleral icterus. No conjunctival pallor. Normocephalic, atraumatic. No pharyngeal erythema. No thyromegaly. CARDIOVASCULAR: S1 and S2 present. No murmurs, rubs, or gallops. PULMONARY: Chest is clear to auscultation, no wheezing or crackles. ABDOMEN: Soft, nontender, nondistended, normoactive bowel sounds. No palpable organomegaly. MUSCULOSKELETAL: No joint swelling or deformity. EXTREMITIES: No cyanosis, clubbing, or pedal edema. NEUROLOGICAL: Gross neurological examination did not reveal any focal deficits. SKIN: No rashes. 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 Patient Condition at Discharge: Good Plan - Discharge Summary Discharge Rx Participant: Yes New Discharge Prescriptions: New Tamsulosin [Flomax] 0.4 mg PO DAILY #30 cap No Action Acetaminophen Tab [Tylenol] 1,000 mg PO Q6H PRN PRN Reason: Pain Or Fever > 100.5 Aspirin 325 mg PO DAILY Loperamide [Imodium] 4 mg PO DAILY@1200,1800 predniSONE 5 mg PO DAILY glyBURIDE [Diabeta] 5 mg PO AC-BID Albuterol Sulfate [Proair Hfa] 2 puff INHALATION RT-Q6H PRN PRN Reason: Shortness Of Breath Simvastatin [Zocor] 80 mg PO HS Methotrexate Sodium [Methotrexate] 12.5 mg PO EM Lisinopril [Zestril] 2.5 mg PO DAILY Folic Acid 1 mg PO DAILY Budesonide/Formoterol Fumarate [Symbicort 160-4.5 Mcg Inhaler] 2 puff INHALATION RT-BID PRN PRN Reason: Shortness Of Breath Cholecalciferol (Vitamin D3) [Vitamin D3] 2,000 unit PO DAILY Discharge Medication List Acetaminophen Tab [Tylenol] 1,000 mg PO Q6H PRN 02/09/17 [History] Aspirin 325 mg PO DAILY 06/17/17 [History] Loperamide [Imodium] 4 mg PO DAILY@1200,1800 06/17/17 [History] Albuterol Sulfate [Proair Hfa] 2 puff INHALATION RT-Q6H PRN 04/09/18 [History] Budesonide/Formoterol Fumarate [Symbicort 160-4.5 Mcg Inhaler] 2 puff INHALATION RT-BID PRN 04/09/18 [History] Cholecalciferol (Vitamin D3) [Vitamin D3] 2,000 unit PO DAILY 04/09/18 [History] Folic Acid 1 mg PO DAILY 04/09/18 [History] Lisinopril [Zestril] 2.5 mg PO DAILY 04/09/18 [History] Methotrexate Sodium [Methotrexate] 12.5 mg PO EM 04/09/18 [History] Simvastatin [Zocor] 80 mg PO HS 04/09/18 [History] glyBURIDE [Diabeta] 5 mg PO AC-BID 04/09/18 [History] predniSONE 5 mg PO DAILY 04/09/18 [History] Tamsulosin [Flomax] 0.4 mg PO DAILY #30 cap 04/10/18 [Rx] Follow up Appointment(s)/Referral(s): Demian Segundo MD [STAFF PHYSICIAN] - 04/11/18 8:00 am [facility],Clinic [Primary Care Provider] - 1-2 days (Please call to set up appt. with the [facility]) Patient Instructions/Handouts: Lithotripsy (DC), Treviño Catheter Placement and Care (DC) Activity/Diet/Wound Care/Special Instructions: Discharge home with Treviño catheter connected to a urinary leg bag. Encourage oral fluids. Cardiac, diabetic diet. Activity as tolerated. Discharge Disposition: HOME SELF-CARE
[2018-04-15] MEDS ORDERED: METHOTREXATE SODIUM 2.5 MG TAB PO SCH (09:00)
== END 2018-04-10 16:00 | disposition home or self-care (01) | DRG 694 ==
LOC: EC 18:15 → 4MS4W 22:00
PROVIDERS: ADMIT Internal Medicine; ATTEND Internal Medicine
PROC: 0TJ98ZZ Inspection of Ureter, Via Natural or Artificial Opening Endoscopic (ICD-10-PCS; 2018-04-09)
PROC: 0T9B70Z Drainage of Bladder with Drainage Device, Via Natural or Artificial Opening (ICD-10-PCS; 2018-04-09)
PROC: 0TCB8ZZ Extirpation of Matter from Bladder, Via Natural or Artificial Opening Endoscopic (ICD-10-PCS; principal; 2018-04-09 11:50)
PROC: BT1D1ZZ Fluoroscopy of Right Kidney, Ureter and Bladder using Low Osmolar Contrast (ICD-10-PCS; 2018-04-09 11:50)
DX: N21.0 Calculus in bladder (principal); N13.2 Hydronephrosis with renal and ureteral calculous obstruction; K51.90 Ulcerative colitis, unspecified, without complications; D72.828 Other elevated white blood cell count; E11.21 Type 2 diabetes mellitus with diabetic nephropathy; E11.22 Type 2 diabetes mellitus with diabetic chronic kidney disease; G20 Parkinson's disease; H91.90 Unspecified hearing loss, unspecified ear; J45.909 Unspecified asthma, uncomplicated; N18.2 Chronic kidney disease, stage 2 (mild); N40.0 Benign prostatic hyperplasia without lower urinary tract symptoms; Z77.090 Contact with and (suspected) exposure to asbestos; Z79.51 Long term (current) use of inhaled steroids; Z79.82 Long term (current) use of aspirin; Z79.899 Other long term (current) drug therapy; Z79.52 Long term (current) use of systemic steroids; Z79.84 Long term (current) use of oral hypoglycemic drugs; Z82.49 Family history of ischemic heart disease and other diseases of the circulatory system; Z83.3 Family history of diabetes mellitus; Z87.442 Personal history of urinary calculi; I69.398 Other sequelae of cerebral infarction; H53.8 Other visual disturbances; Z87.891 Personal history of nicotine dependence; M19.071 Primary osteoarthritis, right ankle and foot; I45.6 Pre-excitation syndrome; Z87.440 Personal history of urinary (tract) infections; Z86.14 Personal history of Methicillin resistant Staphylococcus aureus infection; Z60.2 Problems related to living alone
CPT/HCPCS: 36415; 74176; 74420; 80048; 81001; 82365; 85025; 96361; 96374; 96375; 99285

== ENCOUNTER 2018-06-16 03:20 | Emergency (ER) | payer OTHER ==
[2018-06-16 03:50] VITALS: TEMP 97.6
--- NOTE | 2018-06-16 04:07 | ED ---
Abdominal Pain HPI - General Chief Complaint: Abdominal Pain Stated Complaint: Possible Kidney Stone Time Seen by Provider: 06/16/18 03:51 Source: patient Mode of arrival: ambulatory Limitations: no limitations - History of Present Illness MD Complaint: flank pain Onset/Timin -: hour(s) Location: L flank Radiation: none Migration to: no migration Severity: moderate Quality: sharp Consistency: colicky Improves With: nothing Worsens With: nothing Associated Symptoms: nausea - Related Data Home Medications Medication Instructions Recorded Confirmed Acetaminophen Tab [Tylenol] 1,000 mg PO Q6H PRN 02/09/17 04/09/18 Aspirin 325 mg PO DAILY 06/17/17 04/09/18 Loperamide [Imodium] 4 mg PO DAILY@1200,1800 06/17/17 04/09/18 Albuterol Sulfate [Proair Hfa] 2 puff INHALATION RT-Q6H PRN 04/09/18 04/09/18 Budesonide/Formoterol Fumarate 2 puff INHALATION RT-BID PRN 04/09/18 04/09/18 [Symbicort 160-4.5 Mcg Inhaler] Cholecalciferol (Vitamin D3) 2,000 unit PO DAILY 04/09/18 04/09/18 [Vitamin D3] Folic Acid 1 mg PO DAILY 04/09/18 04/09/18 Lisinopril [Zestril] 2.5 mg PO DAILY 04/09/18 04/09/18 Methotrexate Sodium [Methotrexate] 12.5 mg PO EM 04/09/18 04/09/18 Simvastatin [Zocor] 80 mg PO HS 04/09/18 04/09/18 glyBURIDE [Diabeta] 5 mg PO AC-BID 04/09/18 04/09/18 predniSONE 5 mg PO DAILY 04/09/18 04/09/18 Previous Rx's Medication Instructions Recorded Tamsulosin [Flomax] 0.4 mg PO DAILY #30 cap 04/10/18 Tamsulosin [Flomax] 0.4 mg PO DAILY #14 cap 06/16/18 Allergies Allergy/AdvReac Type Severity Reaction Status Date / Time No Known Allergies Allergy Verified 06/16/18 03:50 Review of Systems ROS Statement: Those systems with pertinent positive or pertinent negative responses have been documented in the HPI. ROS Other: All systems not noted in ROS Statement are negative. Constitutional: Denies: fever, chills Respiratory: Denies: cough, dyspnea Cardiovascular: Denies: chest pain, palpitations, edema Gastrointestinal: Reports: abdominal pain, nausea. 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 History of Any Multi-Drug Resistant Organisms: MRSA Date of last positivie culture/infection: January 2015 (At [facility] per patient) MDRO Source:: Right Ankle and Back (per patient) Past Surgical History: Adenoidectomy, Orthopedic Surgery, Tonsillectomy Additional Past Surgical History / Comment(s): 01/2015 Laminectomy, discectomy with decompression L5-S1, I&D epidural abscess L5-S1 (STATED HAD MULTIPLE BX- BENIGN)and aspiration R ankle, 02/2015 I&D L5-S1 at [facility] [place], Yearly colonoscopy . left wrist surgically repaired after fx-PLATE/SCREW. RT HIP TEVIN/SCREWS. Past Anesthesia/Blood Transfusion Reactions: No Reported Reaction Additional Past Anesthesia/Blood Transfusion Reaction / Comment(s): Pt states he recieved blood 02/2015 at [facility] without reaction. Past Psychological History: No Psychological Hx Reported Smoking Status: Never smoker Past Alcohol Use History: None Reported Past Drug Use History: None Reported - Past Family History Father Family Medical History: Myocardial Infarction ([place]) Additional Family Medical History / Comment(s): Father of massive [place]. Mother Family Medical History: Diabetes Mellitus General Exam Limitations: no limitations General appearance: alert, in no apparent distress Head exam: Present: atraumatic, normocephalic Eye exam: Present: normal appearance. Absent: scleral icterus, conjunctival injection ENT exam: Present: normal oropharynx Respiratory exam: Present: normal lung sounds bilaterally. Absent: respiratory distress, wheezes, rales, rhonchi, stridor Cardiovascular Exam: Present: regular rate, normal rhythm, normal heart sounds. Absent: systolic murmur, diastolic murmur, rubs, gallop GI/Abdominal exam: Present: soft. Absent: distended, tenderness, guarding, rebound, rigid, mass, pulsatile mass, hernia Extremities exam: Present: normal inspection, normal capillary refill. Absent: pedal edema, calf tenderness Back exam: Present: normal inspection. Absent: CVA tenderness (R), CVA tenderness (L) Neurological exam: Present: alert Skin exam: Present: warm, dry, intact, normal color. Absent: rash Course Vital Signs 06/16/18 06/16/18 06/16/18 03:48 05:00 06:35 Temperature 97.6 F Pulse Rate 101 H 107 H 106 H Respiratory 18 19 19 Rate Blood Pressure 166/112 150/94 159/97 O2 Sat by Pulse 95 95 94 L Oximetry Medical Decision Making - Lab Data Result diagrams: 06/16/18 04:08 06/16/18 04:08 Lab Results 06/16/18 06/16/18 Range/Units 04:08 04:08 WBC 18.9 H (3.8-10.6) k/uL RBC 4.82 (4.30-5.90) m/uL Hgb 15.2 (13.0-17.5) gm/dL Hct 48.2 (39.0-53.0) % MCV 100.0 (80.0-100.0) fL MCH 31.5 (25.0-35.0) pg MCHC 31.5 (31.0-37.0) g/dL RDW 15.0 (11.5-15.5) % Plt Count 215 (150-450) k/uL Neutrophils % 81 % Lymphocytes % 10 % Monocytes % 6 % Eosinophils % 1 % Basophils % 0 % Neutrophils # 15.3 H (1.3-7.7) k/uL Lymphocytes # 1.9 (1.0-4.8) k/uL Monocytes # 1.2 H (0-1.0) k/uL Eosinophils # 0.2 (0-0.7) k/uL Basophils # 0.1 (0-0.2) k/uL Macrocytosis Slight Sodium 142 (137-145) mmol/L Potassium 3.5 (3.5-5.1) mmol/L Chloride 108 H (98-107) mmol/L Carbon Dioxide 24 (22-30) mmol/L Anion Gap 10 mmol/L BUN 31 H (9-20) mg/dL Creatinine 1.00 (0.66-1.25) mg/dL Est GFR (CKD-EPI)AfAm >90 (>60 ml/min/1.73 sqM) Est GFR (CKD-EPI)NonAf 79 (>60 ml/min/1.73 sqM) Glucose 155 H (74-99) mg/dL Calcium 9.2 (8.4-10.2) mg/dL Total Bilirubin 0.6 (0.2-1.3) mg/dL AST 30 (17-59) U/L ALT 54 (21-72) U/L Alkaline Phosphatase 91 (38-126) U/L Total Protein 7.0 (6.3-8.2) g/dL Albumin 3.9 (3.5-5.0) g/dL Amylase 51 (30-110) U/L Lipase 120 (23-300) U/L Disposition Clinical Impression: Calculus of ureter, Hydronephrosis due to obstruction of ureter Disposition: HOME SELF-CARE Condition: Fair Instructions: Kidney Stones (ED) Prescriptions: Tamsulosin [Flomax] 0.4 mg PO DAILY #14 cap Is patient prescribed a controlled substance at d/c from ED?: No Referrals: [facility],Clinic [Primary Care Provider] - 1-2 days
[2018-06-16 04:17] LABS: Basophils # (A) 0.1 k/uL (0-0.2); Basophils % (A) 0 %; Eosinophils # (A) 0.2 k/uL (0-0.7); Eosinophils % (A) 1 %; HCT 48.2 % (39.0-53.0); HGB 15.2 gm/dL (13.0-17.5); Lymphocytes # (A) 1.9 k/uL (1.0-4.8); Lymphocytes % (A) 10 %; MCH 31.5 pg (25.0-35.0); MCHC 31.5 g/dL (31.0-37.0); Macrocytosis Slight; Monocytes # (A) 1.2 k/uL (0-1.0); Monocytes % (A) 6 %; Neutrophils # (A) 15.3 k/uL (1.3-7.7); Neutrophils % (A) 81 %; Platelet Count 215 k/uL (150-450); RBC 4.82 m/uL (4.30-5.90); WBC 18.9 k/uL (3.8-10.6)
[2018-06-16] MEDS ORDERED: ONDANSETRON 4 MG/2 ML VIAL IVP STA (04:18)
[2018-06-16] MEDS ORDERED: MORPHINE SULFATE 4 MG/ML SYRINGE IV STA ×2 (04:18→05:51)
[2018-06-16 04:27] LABS: ALT 54 U/L (21-72); AST 30 U/L (17-59); Albumin 3.9 g/dL (3.5-5.0); Alkaline Phosphatase 91 U/L (38-126); Amylase 51 U/L (30-110); Anion Gap 10 mmol/L; Blood Urea Nitrogen 31 mg/dL (9-20); Calcium 9.2 mg/dL (8.4-10.2); Carbon Dioxide 24 mmol/L (22-30); Chloride 108 mmol/L (98-107); Glucose 155 mg/dL (74-99); Lipase 120 U/L (23-300); Potassium 3.5 mmol/L (3.5-5.1); Sodium 142 mmol/L (137-145); Total Bilirubin 0.6 mg/dL (0.2-1.3)
--- NOTE | 2018-06-16 04:57 | CT ---
EXAMINATION TYPE: CT abdomen pelvis wo con DATE OF EXAM: 06/16/2018 COMPARISON: 04/08/2018 HISTORY: LLQ pain, r/o stones CT DLP: 1206.40 mGycm Automated exposure control for dose reduction was used. TECHNIQUE: Helical acquisition of images was performed from the lung bases through the pelvis. FINDINGS: There is some patchy atelectasis at the right lung base. There is no pleural effusion. There is hiata l hernia. Heart size is normal. Liver spleen pancreas gallbladder appear normal. Bile ducts are not d ilated. There is no adrenal mass. There is left-sided hydronephrosis and hydroureter. There is extensive left -sided perinephric edema. There are two 5 mm calculi at the left ureterovesical junction. Bladder is almost empty. The right kidney shows normal size and contour with no hydronephrosis. There is [address] on the anterior right kidney. There is no retroperitoneal adenopathy. There is no mesenteric adenopathy. There is no intestinal wal l thickening. There are no dilated loops. There is a right hip nailing fixing old intertrochanteric f racture right femur. There is osteopenia with thoracolumbar kyphotic deformity. There is anterior wedging of L1 T12 T11 ve rtebra. There is up to 50% loss of height. There is no evidence of a soft tissue mass. There is no in guinal hernia. There is probably right side scrotal hydrocele. There is no ascites. There is no evide nce of pneumoperitoneum. IMPRESSION: OBSTRUCTING CALCULI AT THE LEFT URETEROVESICAL JUNCTION WITH MODERATE HYDRONEPHROSIS AND HYDROURETER. OBSTRUCTION IS NEW COMPARED TO OLD EXAM. THERE IS CLEARING OF RIGHT-SIDED OBSTRUCTION COMPARED TO OL D EXAM. There are multiple compression fractures that appear unchanged.
[2018-06-16] MEDS ORDERED: TAMSULOSIN 0.4 MG CAP.ER.24H PO STA (05:03)
[2018-06-16 07:38] LABS: Appearance,Urine Clear (Clear); Bilirubin,Urine Negative (Negative); Blood,Urine Large (Negative); Color,Urine Yellow; Glucose,Urine (UA) 3+ (Negative); Ketones,Urine Negative (Negative); Leukocyte Esterase,Urine Negative (Negative); Mucus,Urine Rare /hpf; Nitrite,Urine Negative (Negative); PH, Urine 5.5 (5.0-8.0); Protein,Urine Trace (Negative); RBC,Urine >182 /hpf (0-5); Squamous Epithelial Cell,Urine <1 /hpf (0-4); Urobilinogen,Urine <2.0 mg/dL (<2.0); WBC,Urine 4 /hpf (0-5)
[2018-06-16 08:27] VITALS: BP 157/92; PULSE 105; RESP 20
== END 2018-06-16 08:02 | disposition home or self-care (01) ==
LOC: EC 03:20
DX: N13.2 Hydronephrosis with renal and ureteral calculous obstruction (principal); J45.909 Unspecified asthma, uncomplicated; E11.9 Type 2 diabetes mellitus without complications; Z79.82 Long term (current) use of aspirin; Z79.84 Long term (current) use of oral hypoglycemic drugs; Z79.51 Long term (current) use of inhaled steroids; Z79.899 Other long term (current) drug therapy; Z86.73 Personal history of transient ischemic attack (TIA), and cerebral infarction without residual deficits
CPT/HCPCS: 36415; 80053; 82150; 83690; 85025; 81001; 74176; 99284; 96374; 96375; 96376; J2270; J2405

== ENCOUNTER → 2018-08-10 | Outpatient (CLI) | payer OTHER ==
--- NOTE | 2018-08-10 15:57 | US ---
EXAMINATION TYPE: US kidneys/renal and bladder DATE OF EXAM: 08/10/2018 COMPARISON: CT abdomen and pelvis June 16, 2018 CLINICAL HISTORY: R93.4 Abnormal findings on diagnostic imaging of u. No pain at this time. Hx of le ft flank pain and renal stones. EXAM MEASUREMENTS: Right Kidney: 10.5 x 4.8 x 6.0 cm Left Kidney: 10.2 x 4.8 x 5.5 cm Right Kidney: Superior medial cystic appearing lesion - 1.9 x 2.1 x 2.0 cm. Echogenic focus seen low er pole, non shadowing- 0.8 x 0.7 cm. Dromedary hump. Left Kidney: Lower pole echogenic focus, non shadowing = 0.5 x 0.8 cm. Dromedary hump seen. Bladder: shadowing echogenic focus seen in bladder - 1.4 x 2.0 cm Bilateral Jets not seen Right kidney shows no hydronephrosis. Technologist mello nonshadowing 8 mm hyperechoic focus right ki dney medially without corresponding calculus seen on recent CT. Technologist mello 2.1 cm simple appe aring cyst correlates with CT coronal image 74. Smaller central cyst coronal image [address] is not cl early identified. Technologist mello 5 mm nonshadowing hyperechoic focus lower pole level left kidney. Corresponding ca lculus clearly seen on recent CT. There is interval resolution of left-sided hydronephrosis noted. Bladder is poorly distended with suspected intraluminal calculus redemonstrated IMPRESSION: No hydronephrosis is seen currently. Intraluminal bladder calculi redemonstrated.
== END | disposition home or self-care (01) ==
LOC: RADUSWWP 14:39
PROVIDERS: ATTEND Urology
DX: Z09 Encounter for follow-up examination after completed treatment for conditions other than malignant neoplasm (principal); N21.0 Calculus in bladder; Z87.448 Personal history of other diseases of urinary system
CPT/HCPCS: 76770

== ENCOUNTER → 2018-12-28 | Outpatient (CLI) | payer OTHER ==
--- NOTE | 2018-12-28 15:34 | CT ---
EXAMINATION TYPE: CT chest wo con DATE OF EXAM: 12/28/2018 COMPARISON: None HISTORY: Asbestos exposure, allergic asthma, dyspnea on exertion, and wheezing. CT DLP: 661 mGycm, Automated exposure control for dose reduction was used. CONTRAST: Performed injected with 0 mL of Isovue 300. TECHNIQUE: Axial images were obtained at 5 mm thick sections. Reconstructed images are reviewed on WIDIP computer in the coronal plane. FINDINGS: Portion of the thyroid visualized is normal. No suspicious lung nodules or focal infiltrates are present. Some minimal compressive atelectasis may be present within the dependent portion of the lungs. No enlarged mediastinal or hilar adenopathy is evident. There are scattered small lymph nodes withi n the pretracheal space. The ascending aorta diameter at the level of the main pulmonary artery is 3. 8 cm. The main pulmonary artery diameter at the bifurcation is 2.7 cm. Moderate coronary artery calc ification is present. There is a moderate size hiatal hernia present. Limited CT sections are obtained through the upper abdomen. Abdomen is essentially unremarkable. Note is made of compression deformities of the lower thoracic spine. Some minimal posterior wall displace ment of the superior endplate the region of T11 may be present. No spinal canal stenosis is present. IMPRESSIONS: 1. No suspicious changes typically exemplified with asbestos exposure. 2. There is some minimal compressive atelectasis within the dependent portions of the lung bases. 3. Hiatal hernia. 4. Compression deformities the region of T11 and L1 with some milder compression at T12. Minimal post erior wall displacement of the superior T11 level may be present.
== END | disposition home or self-care (01) ==
LOC: RADCTMAIN 10:35
PROVIDERS: ATTEND Internal Medicine
DX: J98.11 Atelectasis (principal); J45.909 Unspecified asthma, uncomplicated; Z77.090 Contact with and (suspected) exposure to asbestos
CPT/HCPCS: 71250

== ENCOUNTER 2018-12-29 05:25 | Emergency (ER) | payer OTHER ==
[2018-12-29] MEDS ORDERED: KETOROLAC 30 MG/ML 1 ML VIAL IM STA (06:00)
[2018-12-29 06:47] LABS: Appearance,Urine Cloudy (Clear); Bacteria,Urine Rare /hpf; Bilirubin,Urine Negative (Negative); Blood,Urine Large (Negative); Color,Urine Yellow; Glucose,Urine (UA) Negative (Negative); Ketones,Urine 1+ (Negative); Leukocyte Esterase,Urine Negative (Negative); Mucus,Urine Rare /hpf; Nitrite,Urine Negative (Negative); PH, Urine 6.5 (5.0-8.0); Protein,Urine 2+ (Negative); RBC,Urine >182 /hpf (0-5); Specific Gravity,Urine 1.019 (1.001-1.035); Squamous Epithelial Cell,Urine 1 /hpf (0-4); Urobilinogen,Urine <2.0 mg/dL (<2.0); WBC,Urine 8 /hpf (0-5)
--- NOTE | 2018-12-29 06:54 | ED ---
Abdominal Pain HPI - General Chief Complaint: Abdominal Pain Stated Complaint: Possible Kidney Stones Source: patient Mode of arrival: ambulatory Limitations: no limitations - History of Present Illness Initial Comments: Newton is a pleasant 68-year-old male presents the emergency room today for left-sided flank pain. He reports pain developed this morning, this severe radiating to the left groin is consistent with previous episodes of stones. Patient follows with Dr. White urology. - Related Data Home Medications Medication Instructions Recorded Confirmed Aspirin 325 mg PO DAILY 06/17/17 12/29/18 Loperamide [Imodium] 4 mg PO DAILY@1200,1800 06/17/17 12/29/18 Budesonide/Formoterol Fumarate 2 puff INHALATION RT-BID PRN 04/09/18 12/29/18 [Symbicort 160-4.5 Mcg Inhaler] Folic Acid 1 mg PO DAILY 04/09/18 12/29/18 Lisinopril [Zestril] 2.5 mg PO DAILY 04/09/18 12/29/18 Simvastatin [Zocor] 80 mg PO HS 04/09/18 12/29/18 glyBURIDE [Diabeta] 5 mg PO AC-BID 04/09/18 12/29/18 Methotrexate Inj Unknown Dose 1 injection SQ EM 12/29/18 12/29/18 Previous Rx's Medication Instructions Recorded Acetaminophen with Codeine 1 tab PO Q6H PRN 3 Days #12 tab 12/29/18 [Tylenol w/codeine #3] Ondansetron [Zofran ODT] 4 mg PO Q8HR #12 tab 12/29/18 Tamsulosin [Flomax] 0.4 mg PO DAILY #7 cap 12/29/18 Allergies Allergy/AdvReac Type Severity Reaction Status Date / Time No Known Allergies Allergy Verified 12/29/18 08:22 Review of Systems ROS Statement: Those systems with pertinent positive or pertinent negative responses have been documented in the HPI. ROS Other: All systems not noted in ROS Statement are negative. 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 History of Any Multi-Drug Resistant Organisms: MRSA Date of last positivie culture/infection: January 2015 (At [facility] per patient) MDRO Source:: Right Ankle and Back (per patient) Past Surgical History: Adenoidectomy, Orthopedic Surgery, Tonsillectomy Additional Past Surgical History / Comment(s): 01/2015 Laminectomy, discectomy with decompression L5-S1, I&D epidural abscess L5-S1 (STATED HAD MULTIPLE BX- BENIGN)and aspiration R ankle, 02/2015 I&D L5-S1 at [facility] [place], Yearly colonoscopy . left wrist surgically repaired after fx-PLATE/SCREW. RT HIP TEVIN/SCREWS. Past Anesthesia/Blood Transfusion Reactions: No Reported Reaction Additional Past Anesthesia/Blood Transfusion Reaction / Comment(s): Pt states he recieved blood 02/2015 at [facility] without reaction. Past Psychological History: No Psychological Hx Reported Smoking Status: Never smoker Past Alcohol Use History: None Reported Past Drug Use History: None Reported - Past Family History Father Family Medical History: Myocardial Infarction ([place]) Additional Family Medical History / Comment(s): Father of massive [place]. Mother Family Medical History: Diabetes Mellitus General Exam - General Exam Comments Initial Comments: Physical Exam GENERAL: Chronically ill appearing HENT: Normocephalic, Atraumatic. EYES: PERRL, EOMI PULMONARY: Unlabored respirations. No audible rales rhonchi or wheezing was noted. CARDIOVASCULAR: There is a regular rate and rhythm without any murmurs gallops or rubs. ABDOMEN: Soft and nontender with normal bowel sounds. Tenderness to percussion of left flank SKIN: Skin is clear with no lesions or rashes and otherwise unremarkable. : Deferred NEUROLOGIC: Patient is alert and oriented x3. Moving all extremities spontaneously MUSCULOSKELETAL: Normal extremities with adequate strength and full range of motion. No lower extremity swelling or edema. No calf tenderness. PSYCHIATRIC: Normal psychiatric evaluation. Limitations: no limitations Limitations: no limitations Course Vital Signs 12/29/18 12/29/18 12/29/18 05:40 07:50 09:02 Temperature 97.4 F L 98 F Pulse Rate 100 82 87 Respiratory 18 20 18 Rate Blood Pressure 120/80 146/98 145/93 O2 Sat by Pulse 97 95 96 Oximetry Medical Decision Making - Medical Decision Making Was seen and evaluated history was obtained patient review of medical record 68-year-old male with left-sided flank pain consistent with previous episodes of kidney stone, urinalysis was ordered Toradol was ordered for discomfort Analysis consistent with likely stone as he does have hematuria Does report he is required urologic intervention for stones in the past therefore computed tomography scan will be ordered Reports the pain is improving significantly after Toradol - Lab Data Lab Results 12/29/18 Range/Units 05:49 Urine Color Yellow Urine Appearance Cloudy (Clear) Urine pH 6.5 (5.0-8.0) Ur Specific [place] 1.019 (1.001-1.035) Urine Protein 2+ H (Negative) Urine Glucose (UA) Negative (Negative) Urine Ketones 1+ H (Negative) Urine Blood Large H (Negative) Urine Nitrite Negative (Negative) Urine Bilirubin Negative (Negative) Urine Urobilinogen <2.0 (<2.0) mg/dL Ur Leukocyte Esterase Negative (Negative) Urine RBC >182 H (0-5) /hpf Urine WBC 8 H (0-5) /hpf Ur Squamous Epith Cells 1 (0-4) /hpf Urine Bacteria Rare H (None) /hpf Urine Mucus Rare H (None) /hpf Disposition Clinical Impression: Kidney stone Disposition: HOME SELF-CARE Condition: Stable Instructions (If sedation given, give patient instructions): Kidney Stones (ED) Prescriptions: Tamsulosin [Flomax] 0.4 mg PO DAILY #7 cap Acetaminophen with Codeine [Tylenol w/codeine #3] 1 tab PO Q6H PRN 3 Days #12 tab PRN Reason: Pain Ondansetron [Zofran ODT] 4 mg PO Q8HR #12 tab Is patient prescribed a controlled substance at d/c from ED?: Yes When asked, does pt state using other controlled substances?: No If prescribed controlled substance>3 days was MAPS reviewed?: No Referrals: [facility],Clinic [Primary Care Provider] - 1-2 days Dre Lott MD [STAFF PHYSICIAN] - 1-2 days
--- NOTE | 2018-12-29 07:55 | CT ---
EXAMINATION TYPE: CT renal stones wo con DATE OF EXAM: 12/29/2018 HISTORY: Possible kidney stone CT DLP: 756.3 mGycm. Automated Exposure Control for Dose Reduction was Utilized. TECHNIQUE: Helical acquisition through the lower chest, abdomen and pelvis was obtained without oral or intravenous contrast. The data was reformatted in axial, coronal and sagittal projections. COMPARISON: Previous study dated 06/16/2018 FINDINGS: There is some dependent atelectasis at the lung bases. There is no pleural or pericardial f luid. The heart is not enlarged. There is coronary artery and other vascular calcifications. Within the abdomen, the liver is mildly prominent measuring 19 cm. The spleen and gallbladder are unr emarkable. Both adrenal glands are normal. There is a 2 mm nonobstructing calculus in the anterior lower pole calyx of the left kidney. There is no hydronephrosis. There is a low attenuating, 2 cm lesion in the upper pole of the right kidney, li dorie representing a cyst. The pancreas is unremarkable. There is no significant retroperitoneal, iliac or inguinal adenopathy. The bladder is not distended. There is coarse calcification involving the prostate gland. The right testicle is located within the inguinal canal. There is fatty infiltration of the descending colon as well as part of the descending colon. The appe ndix is not visualized with certainty. Small bowel loops are within normal limits. There is no free fluid and no free air. There is degenerative disc disease and hypertrophic spondylosis within the spine. There are chronic w edge compression fractures of T11, T12 and L1. These appear stable. IMPRESSION: 1. NONOBSTRUCTING LEFT-SIDED NEPHROLITHIASIS. 2. NO EVIDENCE OF HYDRONEPHROSIS. 3. MILD HEPATOMEGALY. 4. MODERATE HIATAL HERNIA. 5. FATTY INFILTRATION OF THE COLON CAN BE SEEN A SEQUELA OF INFLAMMATORY BOWEL DISEASE. NO ACTIVE INFLAMMATION IS SEEN AT THIS TIME. 6. STABLE WEDGE COMPRESSION FRACTURES AND DEGENERATIVE CHANGES WITHIN THE SPINE. 7. PROBABLE RIGHT RENAL CYST.
[2018-12-29 09:25] VITALS: BP 145/93; PULSE 87; RESP 18; TEMP 98
== END 2018-12-29 09:02 | disposition home or self-care (01) ==
LOC: EC 05:25
DX: N20.0 Calculus of kidney (principal); J45.909 Unspecified asthma, uncomplicated; E11.9 Type 2 diabetes mellitus without complications; Z79.82 Long term (current) use of aspirin; Z79.51 Long term (current) use of inhaled steroids; Z79.84 Long term (current) use of oral hypoglycemic drugs; Z79.899 Other long term (current) drug therapy; Z86.73 Personal history of transient ischemic attack (TIA), and cerebral infarction without residual deficits
CPT/HCPCS: 81001; 74150; 99284; 96372; J1885

== ENCOUNTER 2019-01-23 10:01 | Emergency (ER) | payer OTHER ==
[2019-01-23 10:35] VITALS: RESP 18
[2019-01-23] MEDS ORDERED: SODIUM CHLORIDE 0.9% 1,000 ML IV STA (10:50)
[2019-01-23] MEDS ORDERED: KETOROLAC 30 MG/ML 1 ML VIAL IVP STA (10:50)
--- NOTE | 2019-01-23 11:01 | ED ---
General Adult HPI - General Chief complaint: Abdominal Pain Stated complaint: poss kidney stones Time Seen by Provider: 01/23/19 10:30 Source: patient, RN notes reviewed Mode of arrival: ambulatory - History of Present Illness Initial comments: This 68-year-old male who presents emergency department who states he is here for left flank pain. Patient states he was here approximately one week ago and was told he had a kidney stone since then he saw his primary medical care doctor and was told he had a urinary tract infection. Patient states he was told the kidney stone would pass and that his antibiotics, the mail from the [place] for his infection patient states he has yet to receive any antibiotics. Patient states the pain is still there so decided come back to the emergency department. Patient denies any fever chills. Patient denies any back pain. Patient denies any dysuria hematuria urinary frequency. Patient denies any palpable abdominal pain only has flank pain on the inside. Patient denies any chest pain or difficulty breathing. - Related Data Home Medications Medication Instructions Recorded Confirmed Aspirin 325 mg PO DAILY 06/17/17 01/23/19 Loperamide [Imodium] 4 mg PO DAILY@1200,1800 06/17/17 01/23/19 Budesonide/Formoterol Fumarate 2 puff INHALATION RT-BID PRN 04/09/18 01/23/19 [Symbicort 160-4.5 Mcg Inhaler] Folic Acid 1 mg PO DAILY 04/09/18 01/23/19 Lisinopril [Zestril] 2.5 mg PO DAILY 04/09/18 01/23/19 Simvastatin [Zocor] 80 mg PO DAILY 04/09/18 01/23/19 glyBURIDE [Diabeta] 5 mg PO AC-BID 04/09/18 01/23/19 Methotrexate Sodium [Methotrexate] 25 mg PO EM 01/23/19 01/23/19 Tamsulosin [Flomax] 0.4 mg PO DIRECTED 01/23/19 01/23/19 Previous Rx's Medication Instructions Recorded Sulfamethox-Tmp 800-160Mg [Bactrim 1 each PO Q12HR #14 tab 01/23/19 DS 800-160 mg] Allergies Allergy/AdvReac Type Severity Reaction Status Date / Time No Known Allergies Allergy Verified 01/23/19 10:48 Review of Systems ROS Statement: Those systems with pertinent positive or pertinent negative responses have been documented in the HPI. ROS Other: All systems not noted in ROS Statement are negative. 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 History of Any Multi-Drug Resistant Organisms: MRSA Date of last positivie culture/infection: January 2015 (At [facility] per patient) MDRO Source:: Right Ankle and Back (per patient) Past Surgical History: Adenoidectomy, Orthopedic Surgery, Tonsillectomy Additional Past Surgical History / Comment(s): 01/2015 Laminectomy, discectomy with decompression L5-S1, I&D epidural abscess L5-S1 (STATED HAD MULTIPLE BX- BENIGN)and aspiration R ankle, 02/2015 I&D L5-S1 [place] [facility] [place] Yearly colonoscopy . left wrist surgically repaired after fx-PLATE/SCREW. RT HIP TEVIN/SCREWS. Past Anesthesia/Blood Transfusion Reactions: No Reported Reaction Additional Past Anesthesia/Blood Transfusion Reaction / Comment(s): Pt states he recieved blood 02/2015 at [facility] without reaction. Past Psychological History: No Psychological Hx Reported Smoking Status: Never smoker Past Alcohol Use History: None Reported Past Drug Use History: None Reported - Past Family History Father Family Medical History: Myocardial Infarction (MS) Additional Family Medical History / Comment(s): Father of massive MS. Mother Family Medical History: Diabetes Mellitus General Exam - General Exam Comments Initial Comments: GENERAL: Patient is well-developed and well-nourished. Patient is nontoxic and well- hydrated and is in mild distress. ENT: Neck is soft and supple. No significant lymphadenopathy is noted. Oropharynx is clear. Moist mucous membranes. Neck has full range of motion without eliciting any pain. EYES: The sclera were anicteric and conjunctiva were pink and moist. Extraocular movements were intact and pupils were equal round and reactive to light. Eyelids were unremarkable. PULMONARY: Unlabored respirations. Good breath sounds bilaterally. No audible rales rhonchi or wheezing was noted. CARDIOVASCULAR: There is this tachycardic at 110 beats a minute ABDOMEN: Soft and nontender with normal bowel sounds. No palpable organomegaly was noted. There is no palpable pulsatile mass. SKIN: Skin is clear with no lesions or rashes and otherwise unremarkable. NEUROLOGIC: Patient is alert and oriented x3. Cranial nerves II through XII are grossly intact. Motor and sensory are also intact. Normal speech, volume and content. Symmetrical smile. MUSCULOSKELETAL: Normal extremities with adequate strength and full range of motion. No lower extremity swelling or edema. No calf tenderness. LYMPHATICS: No significant lymphadenopathy is noted PSYCHIATRIC: Normal psychiatric evaluation. Course Vital Signs 01/23/19 01/23/19 10:30 12:44 Temperature 99.3 F Pulse Rate 127 H 98 Respiratory 18 18 Rate Blood Pressure 109/74 112/75 O2 Sat by Pulse 95 98 Oximetry Medical Decision Making - Medical Decision Making EKG shows sinus tachycardia with occasional PAC as 117 bpm OK interval 128 QRS is 70 QT interval 320 QTC is 446. Patient's EKG shows no ST segment elevation or depression or T wave abnormalities are noted. Patient's pain was relieved with Toradol. Patient's urine showed quite a bit of blood to his difficult to assess whether the urine was infected but because. I started the patient on Rocephin in the emergency department sent him home on antibiotic. He is to follow-up with urology. - Lab Data Result diagrams: 01/23/19 11:32 01/23/19 11:32 Lab Results 01/23/19 01/23/19 01/23/19 Range/Units 11:32 11:32 11:32 WBC 8.2 (3.8-10.6) k/uL RBC 4.64 (4.30-5.90) m/uL Hgb 13.8 (13.0-17.5) gm/dL Hct 42.8 (39.0-53.0) % MCV 92.2 (80.0-100.0) fL MCH 29.7 (25.0-35.0) pg MCHC 32.2 (31.0-37.0) g/dL RDW 17.2 H (11.5-15.5) % Plt Count 159 (150-450) k/uL Neutrophils % 72 % Lymphocytes % 8 % Monocytes % 15 % Eosinophils % 0 % Basophils % 0 % Neutrophils # 5.9 (1.3-7.7) k/uL Lymphocytes # 0.7 L (1.0-4.8) k/uL Monocytes # 1.3 H (0-1.0) k/uL Eosinophils # 0.0 (0-0.7) k/uL Basophils # 0.0 (0-0.2) k/uL Anisocytosis Slight Sodium 131 L (137-145) mmol/L Potassium 4.3 (3.5-5.1) mmol/L Chloride 100 (98-107) mmol/L Carbon Dioxide 20 L (22-30) mmol/L Anion Gap 11 mmol/L BUN 21 H (9-20) mg/dL Creatinine 0.95 (0.66-1.25) mg/dL Est GFR (CKD-EPI)AfAm >90 (>60 ml/min/1.73 sqM) Est GFR (CKD-EPI)NonAf 84 (>60 ml/min/1.73 sqM) Glucose 139 H (74-99) mg/dL Plasma Lactic Acid Hernán 1.3 (0.7-2.0) mmol/L Calcium 8.8 (8.4-10.2) mg/dL Total Bilirubin 0.9 (0.2-1.3) mg/dL AST 25 (17-59) U/L ALT 43 (21-72) U/L Alkaline Phosphatase 142 H (38-126) U/L Total Protein 6.5 (6.3-8.2) g/dL Albumin 3.6 (3.5-5.0) g/dL Amylase 46 (30-110) U/L Lipase 94 (23-300) U/L Urine Color Urine Appearance (Clear) Urine pH (5.0-8.0) Ur Specific Boling (1.001-1.035) Urine Protein (Negative) Urine Glucose (UA) (Negative) Urine Ketones (Negative) Urine Blood (Negative) Urine Nitrite (Negative) Urine Bilirubin (Negative) Urine Urobilinogen (<2.0) mg/dL Ur Leukocyte Esterase (Negative) Urine RBC (0-5) /hpf Urine WBC (0-5) /hpf Ur Squamous Epith Cells (0-4) /hpf Urine Mucus (None) /hpf 01/23/19 Range/Units 11:32 WBC (3.8-10.6) k/uL RBC (4.30-5.90) m/uL Hgb (13.0-17.5) gm/dL Hct (39.0-53.0) % MCV (80.0-100.0) fL MCH (25.0-35.0) pg MCHC (31.0-37.0) g/dL RDW (11.5-15.5) % Plt Count (150-450) k/uL Neutrophils % % Lymphocytes % % Monocytes % % Eosinophils % % Basophils % % Neutrophils # (1.3-7.7) k/uL Lymphocytes # (1.0-4.8) k/uL Monocytes # (0-1.0) k/uL Eosinophils # (0-0.7) k/uL Basophils # (0-0.2) k/uL Anisocytosis Sodium (137-145) mmol/L Potassium (3.5-5.1) mmol/L Chloride (98-107) mmol/L Carbon Dioxide (22-30) mmol/L Anion Gap mmol/L BUN (9-20) mg/dL Creatinine (0.66-1.25) mg/dL Est GFR (CKD-EPI)AfAm (>60 ml/min/1.73 sqM) Est GFR (CKD-EPI)NonAf (>60 ml/min/1.73 sqM) Glucose (74-99) mg/dL Plasma Lactic Acid Hernán (0.7-2.0) mmol/L Calcium (8.4-10.2) mg/dL Total Bilirubin (0.2-1.3) mg/dL AST (17-59) U/L ALT (21-72) U/L Alkaline Phosphatase (38-126) U/L Total Protein (6.3-8.2) g/dL Albumin (3.5-5.0) g/dL Amylase (30-110) U/L Lipase (23-300) U/L Urine Color Light Red Urine Appearance Cloudy (Clear) Urine pH 5.5 (5.0-8.0) Ur Specific Boling 1.028 (1.001-1.035) Urine Protein 2+ H (Negative) Urine Glucose (UA) Trace H (Negative) Urine Ketones 2+ H (Negative) Urine Blood Large H (Negative) Urine Nitrite Negative (Negative) Urine Bilirubin 1+ H (Negative) Urine Urobilinogen 2.0 (<2.0) mg/dL Ur Leukocyte Esterase Trace H (Negative) Urine RBC >182 H (0-5) /hpf Urine WBC 19 H (0-5) /hpf Ur Squamous Epith Cells 1 (0-4) /hpf Urine Mucus Few H (None) /hpf Disposition Clinical Impression: Hematuria, Urinary tract infection Disposition: HOME SELF-CARE Condition: Good Prescriptions: Sulfamethox-Tmp 800-160Mg [Bactrim DS 800-160 mg] 1 each PO Q12HR #14 tab Is patient prescribed a controlled substance at d/c from ED?: No Referrals: [facility],Clinic [Primary Care Provider] - 1-2 days Time of Disposition: 12:54
[2019-01-23 11:47] LABS: Anisocytosis Slight; Basophils % (A) 0 %; Eosinophils % (A) 0 %; HCT 42.8 % (39.0-53.0); HGB 13.8 gm/dL (13.0-17.5); Lymphocytes # (A) 0.7 k/uL (1.0-4.8); Lymphocytes % (A) 8 %; MCH 29.7 pg (25.0-35.0); MCHC 32.2 g/dL (31.0-37.0); MCV 92.2 fL (80.0-100.0); Mean Platelet Volume 7.6; Monocytes # (A) 1.3 k/uL (0-1.0); Monocytes % (A) 15 %; Neutrophils # (A) 5.9 k/uL (1.3-7.7); Neutrophils % (A) 72 %; Platelet Count 159 k/uL (150-450); RBC 4.64 m/uL (4.30-5.90); RDW 17.2 % (11.5-15.5); WBC 8.2 k/uL (3.8-10.6)
[2019-01-23 11:55] LABS: ALT 43 U/L (21-72); AST 25 U/L (17-59); Albumin 3.6 g/dL (3.5-5.0); Alkaline Phosphatase 142 U/L (38-126); Amylase 46 U/L (30-110); Anion Gap 11 mmol/L; Appearance,Urine Cloudy (Clear); Bilirubin,Urine 1+ (Negative); Blood Urea Nitrogen 21 mg/dL (9-20); Blood,Urine Large (Negative); Calcium 8.8 mg/dL (8.4-10.2); Carbon Dioxide 20 mmol/L (22-30); Chloride 100 mmol/L (98-107); Color,Urine Light Red; Glucose 139 mg/dL (74-99); Glucose,Urine (UA) Trace (Negative); Ketones,Urine 2+ (Negative); Leukocyte Esterase,Urine Trace (Negative); Lipase 94 U/L (23-300); Mucus,Urine Few /hpf; Nitrite,Urine Negative (Negative); PH, Urine 5.5 (5.0-8.0); Potassium 4.3 mmol/L (3.5-5.1); Protein,Urine 2+ (Negative); RBC,Urine >182 /hpf (0-5); Sodium 131 mmol/L (137-145); Specific Gravity,Urine 1.028 (1.001-1.035); Squamous Epithelial Cell,Urine 1 /hpf (0-4); Total Bilirubin 0.9 mg/dL (0.2-1.3); Total Protein 6.5 g/dL (6.3-8.2); WBC,Urine 19 /hpf (0-5)
--- NOTE | 2019-01-23 11:55 | XR ---
EXAMINATION TYPE: XR KUB DATE OF EXAM: 01/23/2019 COMPARISON: NONE HISTORY: Pain TECHNIQUE: Single supine KUB image of the abdomen is obtained FINDINGS: Small bowel demonstrates scattered air fluid levels which are nonspecific. Mild gaseous distention noted. No convincing evidence for pneumoperitoneum. The lung bases are clear. The osseous structures are intact. IMPRESSION: 1. Nonspecific nonobstructive bowel gas pattern.
[2019-01-23] MEDS ORDERED: cefTRIAXone IN SWFI 1,000 MG/10 ML SYRINGE IVP STA (12:53)
[2019-01-23 13:23] VITALS: BP 107/75; PULSE 93; TEMP 98.7
== END 2019-01-23 13:23 | disposition home or self-care (01) ==
LOC: EC 10:01
DX: N39.0 Urinary tract infection, site not specified (principal); R00.0 Tachycardia, unspecified; J45.909 Unspecified asthma, uncomplicated; E11.9 Type 2 diabetes mellitus without complications; Z79.82 Long term (current) use of aspirin; Z79.51 Long term (current) use of inhaled steroids; Z79.84 Long term (current) use of oral hypoglycemic drugs; Z79.899 Other long term (current) drug therapy; Z86.73 Personal history of transient ischemic attack (TIA), and cerebral infarction without residual deficits
CPT/HCPCS: 36415; 93005; 80053; 82150; 83605; 83690; 85025; 81001; 87086; 74018; 99284; 96374; 96375; 96361 ×2; J0696; J1885

== ENCOUNTER 2019-02-14 08:16 | Day surgery (SDC) | payer OTHER ==
[2019-02-06 14:40] VITALS: BMI 27.9
--- NOTE | 2019-02-09 09:19 | P.GSHP ---
History of Present Illness H&P Date: 02/07/19 Chief Complaint: Urinary frequency The patient is a 68-year-old white male with a history of recurrent urolithiasis. He presented with significant urinary frequency in 2017 and was found to have a 2 cm bladder calculus. He underwent cystoscopy lithotripsy in March 2018. At that time, he was noted to have trilobar BPH. He subsequently passed 2 left ureteral calculi. He was found to have profound hypocitraturia and potassium citrate was therefore prescribed. He currently denies pain but reports urinary frequency. A computed tomography scan in December 2018 showed a 2 mm left lower pole renal calculus, a 2 cm right renal cyst, and a 15 mm bladder calculus. He now comes for cystolithotripsy, and he was also advised to consider a TURP for treatment of his BPH. 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 hx of bladder stone History of Any Multi-Drug Resistant Organisms: MRSA Date of last positivie culture/infection: January 2015 (At [facility] [place] per patient) MDRO Source:: Right Ankle and Back (per patient) Past Surgical History: Adenoidectomy, Back Surgery, Orthopedic Surgery, Tonsillectomy Additional Past Surgical History / Comment(s): 01/2015 Laminectomy, discectomy with decompression L5-S1, I&D epidural abscess L5-S1 (STATED HAD MULTIPLE BX- BENIGN)and aspiration R ankle, 02/2015 I&D L5-S1 at [facility] [place], Yearly colonoscopy . le ft wrist surgically repaired after fx-PLATE/SCREW. RT HIP TEVIN/SCREWS. bladder stone sx Past Anesthesia/Blood Transfusion Reactions: No Reported Reaction Additional Past Anesthesia/Blood Transfusion Reaction / Comment(s): Pt states he recieved blood 02/2015 at [facility] without reaction. Smoking Status: Never smoker - Past Family History Father Family Medical History: Myocardial Infarction (IA) Additional Family Medical History / Comment(s): Father of massive [place]. Mother Family Medical History: Diabetes Mellitus Medications and Allergies Home Medications Medication Instructions Recorded Confirmed Type Aspirin 325 mg PO DAILY 06/17/17 02/06/19 History Loperamide [Imodium] 4 mg PO TID 06/17/17 02/06/19 History Budesonide/Formoterol Fumarate 2 puff INHALATION RT-BID PRN 04/09/18 02/06/19 History [Symbicort 160-4.5 Mcg Inhaler] Folic Acid 1 mg PO DAILY 04/09/18 02/06/19 History Lisinopril [Zestril] 2.5 mg PO QAM 04/09/18 02/06/19 History Simvastatin [Zocor] 80 mg PO DAILY 04/09/18 02/06/19 History glyBURIDE [Diabeta] 5 mg PO QAM 04/09/18 02/06/19 History Methotrexate Sodium [Methotrexate] 25 mg PO EM 01/23/19 02/06/19 History Allergies Allergy/AdvReac Type Severity Reaction Status Date / Time No Known Allergies Allergy Verified 02/06/19 14:32 Assessment and Plan (1) Bladder calculus Status: Acute Code(s): N21.0 - CALCULUS IN BLADDER SNOMED Code(s): 59161836 Plan: Cystoscopy with cystolithotripsy. The procedure has been reviewed in detail with the patient. Potential risks include anesthesia, bleeding, infection, and postoperative urinary retention. Patient is aware of possible retained calculus fragments, and future development of bladder calculi. He has been advised to consider a TURP.
[~2019-02-14 08:16] MED LIST: DEXAMETHASONE SOD PHOSPHATE 10 MG/ML 1 ML VIAL IV ONE; HYDROmorphone 0.5 MG/0.5 ML SYRINGE IVP PRN; LACTATED RINGERS 1,000 ML IV SCH; LIDOCAINE 1% 20 ML VIAL (10MG/ML) FOR IV START INTRADERMA PRN; MIDAZOLAM 2 MG/2 ML VIAL IV PRN; ONDANSETRON 4 MG/2 ML VIAL IVP ONE; SCOPOLAMINE 1.5MG/72HR PATCH TRANSDERM ONE; ceFAZolin IN SWFI 2 GM/20 ML SYRINGE IVP ONE
[2019-02-14 09:09] LABS: Glucose,Whole Blood 93 mg/dL (75-99)
[2019-02-14] MEDS ORDERED: SUCCINYLCHOLINE CHLORIDE 100 MG/5 ML SYR IV ONE (10:08)
[2019-02-14] MEDS ORDERED: fentaNYL (PF) 50 MCG/ML 2 ML AMP ONE (10:08)
[2019-02-14] MEDS ORDERED: PROPOFOL 10 MG/ML 20 ML VIAL IV ONE (10:08)
[2019-02-14] MEDS ORDERED: MIDAZOLAM 2 MG/2 ML VIAL ONE (10:08)
[2019-02-14] MEDS ORDERED: LIDOCAINE 1% INJ 10MG/ML (20 ML MDV) ONE (10:08)
[2019-02-14] MEDS ORDERED: ePHEDrine SULFATE/0.9% NACL/PF 50 MG/5 ML SYRINGE IV ONE (10:08)
[2019-02-14 11:20] VITALS: TEMP 98
--- NOTE | 2019-02-14 11:21 | P.OP ---
Date of Procedure: 02/14/19 Preoperative Diagnosis: Bladder Calculus Postoperative Diagnosis: Same Procedure(s) Performed: Cystoscopy with Cystolithotripsy Anesthesia: ENRIQUE Surgeon: Demian Segundo Estimated Blood Loss (ml): 0 IV fluids (ml): 650 Pathology: none sent Condition: stable Disposition: PACU Indications for Procedure: The patient is a 68-year-old white male with a history of recurrent urolithiasis. He presented with significant urinary frequency in 2017 and was found to have a 2 cm bladder calculus. He underwent cystoscopy lithotripsy in March 2018. At that time, he was noted to have trilobar BPH. He subsequently passed 2 left ureteral calculi. He was found to have profound hypocitraturia and potassium citrate was therefore prescribed. He currently denies pain but reports urinary frequency. A computed tomography scan in December 2018 showed a 2 mm left lower pole renal calculus, a 2 cm right renal cyst, and a 15 mm bladder calculus. He now comes for cystolithotripsy, and he was also advised to consider a TURP for treatment of his BPH. Operative Findings: 2 cm bladder calculus Description of Procedure: The patient was taken to the operating room and placed in the dorsal lithotomy position, with legs supported in Andrei stirrups. The external genitalia was prepped and draped sterilely. The 30 lens was used to introduce the 19-Swazi Stortz cystoscopic sheath through the urethra and into the bladder under direct vision. The urethra appeared normal. The prostate showed evidence of lateral lobe enlargement and a small median lobe, completely occluded. The bladder was examined in its entirety. The ureteral orifices appeared normal. A total of 1 calculi was seen, measuring 15-20 mm in size. No tumors were seen. No diverticuli were seen. Using the 550 micron Holmium laser probe, lithotripsy was performed. Lithotripsy was continued until all calculus fragments could be removed via the cystoscope. Once this was completed, the bladder was inspected. There was no active bleeding, and no evidence of bladder perforation. An 18- Swazi Treviño catheter was placed. The return was essentially clear. The patient tolerated the procedure well was taken to the recovery room in stable condition.
[2019-02-14 11:31] VITALS: PULSE 85
[2019-02-14 12:26] VITALS: BP 101/66; RESP 16
== END 2019-02-14 13:02 | disposition home or self-care (01) ==
LOC: OR 08:16
PROVIDERS: ATTEND Urology
DX: N21.0 Calculus in bladder (principal); N20.0 Calculus of kidney; N28.1 Cyst of kidney, acquired; E11.9 Type 2 diabetes mellitus without complications; J45.909 Unspecified asthma, uncomplicated; H91.90 Unspecified hearing loss, unspecified ear; N40.1 Benign prostatic hyperplasia with lower urinary tract symptoms; N13.8 Other obstructive and reflux uropathy; R35.0 Frequency of micturition; E78.5 Hyperlipidemia, unspecified; I12.9 Hypertensive chronic kidney disease with stage 1 through stage 4 chronic kidney disease, or unspecified chronic kidney disease; N18.9 Chronic kidney disease, unspecified; E11.22 Type 2 diabetes mellitus with diabetic chronic kidney disease; I69.354 Hemiplegia and hemiparesis following cerebral infarction affecting left non-dominant side; I69.398 Other sequelae of cerebral infarction; H53.8 Other visual disturbances; K50.90 Crohn's disease, unspecified, without complications; Z87.442 Personal history of urinary calculi; I45.6 Pre-excitation syndrome; Z86.14 Personal history of Methicillin resistant Staphylococcus aureus infection; Z77.090 Contact with and (suspected) exposure to asbestos; Z82.49 Family history of ischemic heart disease and other diseases of the circulatory system; Z83.3 Family history of diabetes mellitus; Z79.84 Long term (current) use of oral hypoglycemic drugs; Z79.82 Long term (current) use of aspirin; Z79.51 Long term (current) use of inhaled steroids; Z79.899 Other long term (current) drug therapy
CPT/HCPCS: 82365; 52317; J2250; J1100; J2405; J2001; J3010; J0330; J2704; J0690

== ENCOUNTER → 2019-12-02 | Outpatient (CLI) | payer OTHER ==
[2019-12-02 16:17] LABS: Hemoglobin A1C 9.6 % (4.0-6.0)
== END | disposition home or self-care (01) ==
LOC: LABWHC1 11:02
PROVIDERS: ATTEND Surgery
DX: R73.9 Hyperglycemia, unspecified (principal)
CPT/HCPCS: 36415; 83036

== ENCOUNTER → 2020-06-10 | Outpatient (CLI) | payer OTHER | END | disposition home or self-care (01) | LOC: LABPAT 12:07 | PROVIDERS: ATTEND Surgery | DX: U07.1 COVID-19 (principal) ==

== ENCOUNTER → 2020-06-12 | Outpatient (CLI) | payer OTHER ==
[2020-06-12 16:33] LABS: Potassium 3.8 mmol/L (3.5-5.1)
[2020-06-12 16:50] LABS: HCT 46.4 % (39.0-53.0); HGB 14.7 gm/dL (13.0-17.5); MCH 30.9 pg (25.0-35.0); MCHC 31.6 g/dL (31.0-37.0); MCV 97.9 fL (80.0-100.0); Platelet Count 274 k/uL (150-450); RBC 4.74 m/uL (4.30-5.90); RDW 15.4 % (11.5-15.5); WBC 12.3 k/uL (3.8-10.6)
== END | disposition home or self-care (01) ==
LOC: LABPAT 14:21
PROVIDERS: ATTEND Surgery
DX: Z01.818 Encounter for other preprocedural examination (principal); K51.90 Ulcerative colitis, unspecified, without complications
CPT/HCPCS: 80051; 85027; 93005

== ENCOUNTER → 2020-06-19 | Outpatient (CLI) | payer OTHER | END | disposition home or self-care (01) | LOC: LABPAT 10:12 | PROVIDERS: ATTEND Surgery | DX: Z53.9 Procedure and treatment not carried out, unspecified reason (principal) ==

== ENCOUNTER 2020-06-22 07:43 | Inpatient (IN) | payer MEDICARE, OTHER ==
[~2020-06-22 07:43] MED LIST changes: -HYDROmorphone 0.5 MG/0.5 ML SYRINGE IVP PRN; -LACTATED RINGERS 1,000 ML IV SCH; -LIDOCAINE 1% 20 ML VIAL (10MG/ML) FOR IV START INTRADERMA PRN; -MIDAZOLAM 2 MG/2 ML VIAL IV PRN; -ceFAZolin IN SWFI 2 GM/20 ML SYRINGE IVP ONE; +metroNIDAZOLE-NS PMX 500 MG in SALINE 1 100ML.BAG IVPB ONE
[2020-06-22] MEDS: LACTATED RINGERS 1,000 ML IV SCH (12:27)
[2020-06-22 12:29] LABS: Glucose,Whole Blood 101 mg/dL (75-99)
[2020-06-22] MEDS ORDERED: HYDROCORTISONE SUCCINATE 100 MG/2 ML VIAL IVP ONE (12:46)
[2020-06-22] MEDS ORDERED: HEPARIN SODIUM,PORCINE 5,000 UNIT/ML 1 ML VIAL ONE (13:40)
[2020-06-22] MEDS ORDERED: SUCCINYLCHOLINE CHLORIDE 100 MG/5 ML SYR IV ONE (13:44)
[2020-06-22] MEDS ORDERED: PROPOFOL 10 MG/ML 20 ML VIAL IV ONE (13:44)
[2020-06-22] MEDS ORDERED: fentaNYL (PF) 50 MCG/ML 2 ML AMP ONE (13:44)
[2020-06-22] MEDS ORDERED: HYDROmorphone (PF) 1 MG/ML ONE (13:44)
[2020-06-22] MEDS ORDERED: MIDAZOLAM 2 MG/2 ML VIAL ONE (13:44)
[2020-06-22] MEDS ORDERED: LIDOCAINE 1% INJ 10MG/ML (20 ML MDV) ONE (13:44)
[2020-06-22] MEDS ORDERED: fentaNYL (PF) 50 MCG/ML 2 ML AMP IVP ONE (13:44)
[2020-06-22] MEDS ORDERED: ROCURONIUM 10 MG/ML (10 ML VIAL) IV ONE (13:44)
[2020-06-22] MEDS ORDERED: GLYCOPYRROLATE 0.2 MG/ML 2 ML VIAL ONE (13:44)
[2020-06-22] MEDS ORDERED: NEOSTIGMINE 1 MG/ML 10 ML VIAL ONE (13:44)
[2020-06-22] MEDS ORDERED: MIDAZOLAM 2 MG/2 ML VIAL IVP ONE (13:44)
--- NOTE | 2020-06-22 14:02 | P.HPADDEND ---
H&P Addendum H&P Addendum Date: 06/22/20 The patient initially presented for surgery last week but this was delayed due to tachycardia arrhythmia. He has been cleared by cardiology although at increased risk. Prior to the abdominal surgery a rigid sigmoidoscopy will be performed to evaluate the extent of the disease distally. This will guide resection. The procedure, risks, complications were discussed. Questions were encouraged and answered. Usual postoperative course was discussed.
[2020-06-22] MEDS ORDERED: LACTATED RINGERS 1,000 ML IV ONE ×3 (14:15→16:57)
[2020-06-22] MEDS ORDERED: BUPIVACAINE (PF) 0.25% 30 ML VIAL SQ ONE ×2 (14:44)
[2020-06-22] MEDS ORDERED: METHYLENE BLUE 50 MG/10 ML AMPUL MISCELLANE ONE (15:28)
[2020-06-22] MEDS ORDERED: NALOXONE 0.4 MG/ML 1 ML VIAL IV PRN ×2 (17:35→18:12)
--- NOTE | 2020-06-22 17:35 | P.OP ---
Date of Procedure: 06/22/20 Preoperative Diagnosis: Crohn's disease with colonic strictures and indeterminate for dysplasia on prior biopsy Postoperative Diagnosis: Crohn's disease with colonic strictures and indeterminate for dysplasia on prior biopsy Procedure(s) Performed: Rigid sigmoidoscopy with tattooing, diagnostic laparoscopy, subtotal colectomy with ileostomy formation Anesthesia: ENRIQUE Surgeon: Maria L Phan Estimated Blood Loss (ml): 200 Pathology: other (Terminal ileum and colon) Condition: stable Disposition: PACU Indications for Procedure: The patient has multiple colonic strictures and had been indeterminate for dysplasia on prior biopsies. He had seen several video game programmer and had maximized his medical therapy. The recommendation was for subtotal colectomy Description of Procedure: The patient was taken to the OR where he is placed in stirrups. A rigid sigmoidoscope was then passed per anus to about 15 cm. The mucosa there appeared grossly normal. Methylene blue was injected submucosally in 2 locations. The patient is then placed supine. He is prepped and draped in the usual sterile manner under general endotracheal anesthetic. At the site which was chosen for ileostomy, a 5 mm optical trocar was placed into the abdominal cavity the large and small bowel and omentum were examined. Although the bowel was fairly pliable. His anatomy was not optimal for a robotic resection. He had a very heavy thick omentum. The right and left colon was very deep in the paracolic gutter and there was scarring in the distal sigmoid proximal rectum from the strictures. Therefore decision was made to do open surgery. The laparoscopic instruments were passed off. The abdomen was entered through a midline incision. Small bleeding points were controlled with electrocautery. The small bowel was run from the ligament of Treitz to the terminal ileum. No significant areas of small bowel stricturing or inflammatory change. Starting in the right lower quadrant the terminal ileum and cecum were mobilized along the white line of Toldt. Dissection was carried up to the hepatic flexure in the right colon and hepatic flexure were mobilized inferiorly and medially. The gastrocolic omentum was then divided with the LigaSure. The sigmoid colon and descending colon were mobilized along the white line of Toldt. The splenic flexure was taken down with the LigaSure. That point the majority of the bowel was fairly mobilized. A site was chosen about 10 cm proximal to the ileocecal valve as the very distal small bowel was thickened. An opening was made in the mesentery. A JIMY stapler was placed and fired. The mesentery was then taken do wn with LigaSure. The ileocolic vessels were clamped, cut and tied with 0 Vicryl suture. The mesentery was then taken up to the middle colic. The middle colic vessels were clamped, cut and tied with 0 Vicryl. Mesentery was further divided down to the inferior mesenteric. These were isolated, clamped cut and tied with 0 Vicryl. The right and left ureter were identified and kept out of harm's way. The lateral attachments were then divided down in a presacral dissection was sharply carried out. A site was chosen on the mid rectum and the mesentery was divided. A stapler was then placed and fired. The specimen was passed off. The abdomen was then examined. A small amount of mesenteric bleeding was noted near the middle colic vessels which was controlled with some [id number] sutures of 3-0 Vicryl. A small piece of Surgicel was then left there. Site was chosen for the ileostomy. A disc of skin and subcutaneous tissues were divided down to the fascia the fascia was then split along the direction of its fibers. The distal terminal ileum was then brought up through the opening. Terminal ileum was tacked to the peritoneum posterior fascia using 3-0 Vicryl. The abdomen and pelvis was then examined, no undue bleeding was noted. The fashion peritoneum were closed with 1 PDS. The skin was closed with princess. The incisions were covered with towels. The staple line was then removed from the terminal ileum. The small bowel was everted. It was then tacked to the skin in a deep dermal manner, a bite was taken of the mesentery or serosa and then a full-thickness bite of the cut edge. The sutures were placed then tied down. It gave a nice eversion of about 1-1.5 cm. The cut edge of the bowel was then tacked to the skin using 3-0 chromic. An ostomy appliance was applied. Sterile dressings were applied. He tolerated the procedure without difficulty and was taken recovery room in satisfactory condition. According to or personnel, all counts were correct.
[2020-06-22] MEDS ORDERED: ALBUMIN HUMAN 5% (12.5gm) 250 ML BOTTLE IVPB ONE (17:54)
[2020-06-22 18:17] LABS: Glucose,Whole Blood 201 mg/dL (75-99)
[2020-06-22] MEDS ORDERED: HYDROCORTISONE SUCCINATE 100 MG/2 ML VIAL IV ONE (18:30)
[2020-06-22] MEDS ORDERED: PHENYLEPHRINE 40 MG in SODIUM CHLORIDE 0.9% 250 ML IV ONE (18:45)
[2020-06-22] MEDS: HYDROmorphone 0.5 MG/0.5 ML SYRINGE IVP PRN ×2 (19:28→19:45)
--- NOTE | 2020-06-22 19:37 | P.ANPRN ---
Procedure Note - Anesthesia - Invasive Line Right Central Line Time Out Performed: Yes (1911) Date of Procedure: 06/22/20 Time of Procedure: 19:13 Location of Patient: Phase I Preparation: Sterile Prep, Sterile Dressing Ultrasound Used: Yes Purpose - Visualization and Identification of Vasculature: Yes Needle Guage: 18g angio Image Stored and Saved: Yes Narrative: Central line placement per sterile protocol utilized. +local +angio +CVC +Jwire +uneventful dilation and introduction right IJ TLC. No PTX. Adequate position.
--- NOTE | 2020-06-22 19:52 | XR ---
EXAMINATION TYPE: XR chest 1V confirm line [facility] DATE OF EXAM: 06/22/2020 COMPARISON: 06/16/2020 HISTORY: Check line placement TECHNIQUE: Single view FINDINGS: There is right jugular catheter with tip in the superior vena cava. There is nasogastric tu be and the tube position is not clear. Tube deviates to the left side and could be an hiatal hernia. It is also possible the tube is in the left lower lobe bronchus. There is elevation of the right diap hragm. There is atelectasis right lung base. There is some infiltrate left lung base. IMPRESSION: Possible malposition of the endotracheal tube in the left lower lobe bronchus. Tube tip c ould also be in hilar hernia behind the heart. There is increased pleural reaction and atelectasis at the lung bases compared to last exam. No obvio us heart failure.
[2020-06-22 20:01] LABS: Glucose,Whole Blood 218 mg/dL (75-99)
[2020-06-22] MEDS: METOCLOPRAMIDE 5 MG/ML 2 ML VIAL IVP SCH ×2 (20:11→23:50)
[2020-06-22] MEDS: DEXTROSE 5%-0.45% NACL 1,000 ML IV SCH (20:13)
[2020-06-22] MEDS: carvediloL 3.125 MG TAB PO SCH (23:12)
[2020-06-22] MEDS: HYDROmorphone PCA 10 MG/50 ML BAG IV PRN (23:13)
[2020-06-22] MEDS: HEPARIN SODIUM,PORCINE 5,000 UNIT/ML 1 ML VIAL SQ SCH (23:50)
[2020-06-22] MEDS: PIPERACILLIN-TAZOBACTAM 3.375 GM in SODIUM CHLORIDE 0.9% 100 ML IVPB SCH (23:50)
[2020-06-22] MEDS: HYDROCORTISONE SUCCINATE 100 MG/2 ML VIAL IV SCH (23:50)
[2020-06-23] MEDS: LACTATED RINGERS 1,000 ML IV SCH ×4 (05:19→23:45)
[2020-06-23] MEDS: carvediloL 3.125 MG TAB PO SCH ×2 (05:20→20:09)
[2020-06-23] MEDS: DEXTROSE 5%-0.45% NACL 1,000 ML IV SCH ×2 (05:20→16:51)
[2020-06-23] MEDS: METOCLOPRAMIDE 5 MG/ML 2 ML VIAL IVP SCH ×4 (05:20→23:41)
[2020-06-23 05:35] LABS: Basophils % (A) 0 %; Eosinophils # (A) 0.1 k/uL (0-0.7); Eosinophils % (A) 0 %; HCT 38.8 % (39.0-53.0); HGB 12.3 gm/dL (13.0-17.5); Hypochromasia Slight; Lymphocytes # (A) 0.4 k/uL (1.0-4.8); Lymphocytes % (A) 1 %; MCH 31.3 pg (25.0-35.0); MCHC 31.7 g/dL (31.0-37.0); MCV 98.8 fL (80.0-100.0); Mean Platelet Volume 8.4; Monocytes # (A) 1.5 k/uL (0-1.0); Monocytes % (A) 5 %; Neutrophils # (A) 29.5 k/uL (1.3-7.7); Neutrophils % (A) 93 %; Platelet Count 235 k/uL (150-450); RBC 3.93 m/uL (4.30-5.90); RDW 14.8 % (11.5-15.5); WBC 31.7 k/uL (3.8-10.6)
[2020-06-23 05:45] LABS: Albumin 3.1 g/dL (3.5-5.0); Magnesium 1.5 mg/dL (1.6-2.3); Total Bilirubin 1.4 mg/dL (0.2-1.3); Total Protein 5.4 g/dL (6.3-8.2)
[2020-06-23 06:56] LABS: Glucose,Whole Blood 406 mg/dL (75-99)
[2020-06-23] MEDS ORDERED: HYDROmorphone 0.5 MG/0.5 ML SYRINGE IVP STA (07:15)
[2020-06-23] MEDS: INSULIN ASPART (NovoLOG) 100 UNIT/ML VIAL SQ SCH ×4 (07:32→21:06)
[2020-06-23] MEDS: SYMBICORT 160-4.5 MCG INHALER INHALATION PRN (07:43)
[2020-06-23] MEDS: PIPERACILLIN-TAZOBACTAM 3.375 GM in SODIUM CHLORIDE 0.9% 100 ML IVPB SCH (08:36)
[2020-06-23] MEDS: PANTOPRAZOLE 40 MG/10 ML VIAL IV SCH (08:37)
[2020-06-23] MEDS: FINASTERIDE 5 MG TAB PO SCH (08:37)
[2020-06-23] MEDS: MONTELUKAST 10 MG TAB PO SCH (08:37)
[2020-06-23] MEDS: HEPARIN SODIUM,PORCINE 5,000 UNIT/ML 1 ML VIAL SQ SCH ×3 (08:37→23:40)
[2020-06-23] MEDS: lisinopriL 10 MG TAB PO SCH (08:37)
[2020-06-23] MEDS: HYDROCORTISONE SUCCINATE 100 MG/2 ML VIAL IV SCH ×3 (08:37→23:40)
[2020-06-23] MEDS ORDERED: predniSONE 5 MG TAB PO SCH (09:00)
--- NOTE | 2020-06-23 09:21 | XR ---
EXAMINATION TYPE: XR chest 1V confirm line [facility] DATE OF EXAM: 06/23/2020 COMPARISON: Chest x-ray dated 06/22/2020 HISTORY: Status post triple lumen catheter placement TECHNIQUE: Single frontal view of the chest is obtained. FINDINGS: The right jugular central venous catheter has changed position, the distal tip is overlyin g the right neck. There is overlying tubing. NG tube has withdrawn slightly and is likely within the distal esophagus. Apical pleural thickening is again noted right greater than left. Volume loss is pr esent in the right hemithorax, no evident pneumothorax. Heart is stable. There is likely hiatal herni a present. Probable basilar atelectatic changes persist. IMPRESSION: Central venous catheter in the right neck.
[2020-06-23] MEDS ORDERED: Magnesium Replacement Protocol 1 EACH MISC MISCELLANE PRN (10:03)
[2020-06-23 11:52] LABS: Glucose,Whole Blood 313 mg/dL (75-99)
--- NOTE | 2020-06-23 12:44 | CONS ---
CONSULTATION PULMONARY/CRITICAL CARE CONSULTATION: DATE OF SERVICE: 06/23/2020 This is a patient who was admitted electively on June 22, 2020. The patient apparently has a history of severe colitis with strictures. He also suffers from hyperlipidemia, diabetes, and hypertension. The patient was to have a robotic colectomy yesterday but apparently technically, it was not able to be done and he had an open procedure with a laparotomy, total colectomy with ileostomy. Today is postop day #1. Postoperatively, the patient was found to be a bit hypotensive. He receive IV fluids and albumin per Anesthesia and I also recommended stress doses of hydrocortisone at 100 mg q.8 hours because the patient chronically was on prednisone as an outpatient. Currently, he is resting comfortably. NG tube in place. He got 2 L nasal cannula. He is getting lactated Ringer's at 100 mL an hour. ALLERGIES: Denied. HOME MEDICATIONS: Include prednisone 50 mg a day, metformin 500 mg a day, lisinopril 10 mg a day. Glyburide 10 mg daily, Coreg 3.125 mg twice a day, vitamins, Singulair 10 mg at bedtime, Imodium 4 mg q.i.d., Proscar 5 mg daily, Symbicort 2 puffs twice a day 160/4.5, aspirin and Tylenol. PAST MEDICAL HISTORY: Positive for chronic colitis with strictures, diabetes, hypertension, hyperlipidemia, nonischemic cardiomyopathy, Crohn's disease. SURGICAL HISTORY: Remote. Surgical history of right hip 2017, left wrist, 2016. FAMILY HISTORY: Father with heart disease. Mother with diabetes and heart disease, OCCUPATIONAL HISTORY: Noncontributory. SOCIAL HISTORY: Denies any alcohol use or illicit drug use. Positive for previous tobacco use, but he has not smoked in quite some time. REVIEW OF SYSTEMS: CONSTITUTIONAL: Weakness. NEUROLOGIC: Negative. HEENT: Negative. CARDIOVASCULAR: Negative. PULMONARY: Negative. GI: Postop day #1 status post total colectomy with ileostomy. : Negative. RHEUMATOLOGIC: Negative. IMMUNOLOGIC: Negative. ENDOCRINOLOGIC: Negative. DERMATOLOGIC: Negative. Current vital signs are reviewed, temperature is 98, heart rate 108, respiratory rate is 10, blood pressure 105/76 mean 85 and 2 L saturation 93%. Appears in no acute distress. HEENT: Examination is grossly unremarkable. Nasal O2 in place. NG tube noted. NECK: Supple, full range of motion. No adenopathy. Neck veins are flat. CARDIOVASCULAR: Examination reveals regular rhythm and rate. Heart rate about 100 beats per minute. S1, S2 normal. It is regular. LUNGS: Reveal a few scattered rhonchi. Breath sounds equal. ABDOMEN: Soft. No bowel sounds. Ileostomy is noted. EXTREMITIES: Intact. No edema. SKIN: Without rash. NEUROLOGIC: Examination is brief but nonfocal. LABS: Reviewed. White count 31.7, hemoglobin 12.3, hematocrit 38.8, platelet count 235,000, sodium 134, potassium 5, chloride 105, CO2 is 21, anion gap is 8. BUN and creatinine were 20 and 1.03, calcium 8, magnesium 1.5, total bilirubin 1.4, albumin 3.1. Microbiology is currently negative. Chest x-ray shows NG tube to be in place. Some bibasilar atelectasis and some volume loss to the right lower lobe. Medications are reviewed. Currently, the patient is on Symbicort, Coreg, LR, Proscar, subcu heparin, hydrocortisone, Dilaudid, insulin, lisinopril, Reglan, Singulair, Narcan, and Protonix. ASSESSMENT: 1. Postoperative day #1 status post exploratory laparotomy, total colectomy with ileostomy, postoperative day #1. 2. History of long-standing inflammatory bowel disease. Crohn's colitis with strictures. 3. History of chronic obstructive pulmonary disease from previous tobacco use. 4. History of arthritis. 5. History of hypertension. 6. History of hyperlipidemia. 7. History of diabetes. PLAN: The patient is currently stable from the hemodynamic standpoint. I would be careful with the blood pressure medications at this time. The patient remains on stress doses of corticosteroids in the form of hydrocortisone 100 mg q.8 hours. Recommend deep breathing, coughing, clearing the secretions and hourly use of incentive spirometer. No additional recommendations are made. The patient will stay here in the ICU at least for an additional 24 hours. Additional recommendations and suggestions are forthcoming. Prognosis is guarded. MMODL / IJN: [id number] /
[2020-06-23] MEDS: HYDROmorphone PCA 10 MG/50 ML BAG IV PRN (15:15)
--- NOTE | 2020-06-23 15:33 | P.PN ---
Subjective Progress Note Date: 06/23/20 Principal diagnosis: Status post subtotal colectomy with ileostomy The patient is postop day 1 subtotal colectomy with ileostomy. He was admitted to the ICU overnight due to some hypotension. He was initially was treated with vasopressors but those were able to be quickly weaned. He is having some expected incisional pain which is controlled with UPHOLSTERER LIMOUSINE AND HEARSE. He says it hurts to take a deep breath. No shortness of breath. Objective - Vital Signs Vital signs: Vital Signs Temp 98.2 F 06/23/20 12:00 Pulse 89 06/23/20 12:00 Resp 11 L 06/23/20 12:00 BP 119/87 06/23/20 12:00 Pulse Ox 95 06/23/20 12:00 Intake & Output 06/22/20 06/23/20 06/23/20 18:59 06:59 18:59 Intake Total 3150 1100 700 Output Total 480 775 475 Balance 2670 325 225 Weight 97.7 kg 98.2 kg Intake: IV 3150 1000 600 D5 .45 @ 100 mls/hr 1000 600 Intake, IV Titration 100 100 Amount Piperacillin-Tazobactam 3 100 100 .375 gm In Sodium Chloride 0.9% 100 ml @ 25 mls/hr IVPB Q8HR [facility] Rx# :[id number] Output: Urine 330 775 475 Estimated Blood Loss 150 Other: Voiding Method Indwelling Catheter Indwelling Catheter - Constitutional General appearance: Present: cooperative, no acute distress - Respiratory Respiratory: bilateral: CTA, diminished (at the bases) - Cardiovascular Rhythm: regular (slightly tachycardic) - Gastrointestinal Gastrointestinal Comment(s): ileostomy in the RLQ is pink and viable General gastrointestinal: Present: absent bowel sounds, soft - Labs CBC & Chem 7: 06/23/20 05:00 06/23/20 05:00 Labs: Abnormal Lab Results - Last 24 Hours (Table) 06/22/20 06/22/20 06/23/20 Range/Units 18:16 19:59 05:00 WBC 31.7 H (3.8-10.6) k/uL RBC 3.93 L (4.30-5.90) m/uL Hgb 12.3 L (13.0-17.5) gm/dL Hct 38.8 L (39.0-53.0) % Neutrophils # 29.5 H (1.3-7.7) k/uL Lymphocytes # 0.4 L (1.0-4.8) k/uL Monocytes # 1.5 H (0-1.0) k/uL Sodium (137-145) mmol/L Carbon Dioxide (22-30) mmol/L Glucose (74-99) mg/dL POC Glucose (mg/dL) 201 H 218 H (75-99) mg/dL Calcium (8.4-10.2) mg/dL Magnesium (1.6-2.3) mg/dL Total Bilirubin (0.2-1.3) mg/dL Total Protein (6.3-8.2) g/dL Albumin (3.5-5.0) g/dL 06/23/20 06/23/20 06/23/20 Range/Units 05:00 06:54 11:46 WBC (3.8-10.6) k/uL RBC (4.30-5.90) m/uL Hgb (13.0-17.5) gm/dL Hct (39.0-53.0) % Neutrophils # (1.3-7.7) k/uL Lymphocytes # (1.0-4.8) k/uL Monocytes # (0-1.0) k/uL Sodium 134 L (137-145) mmol/L Carbon Dioxide 21 L (22-30) mmol/L Glucose 411 H (74-99) mg/dL POC Glucose (mg/dL) 406 H 313 H (75-99) mg/dL Calcium 8.0 L (8.4-10.2) mg/dL Magnesium 1.5 L (1.6-2.3) mg/dL Total Bilirubin 1.4 H (0.2-1.3) mg/dL Total Protein 5.4 L (6.3-8.2) g/dL Albumin 3.1 L (3.5-5.0) g/dL - Imaging and Cardiology Chest x-ray: report reviewed, image reviewed Assessment and Plan (1) Chronic steroid use Current Visit: No Status: Acute Code(s): HRM5229 - SNOMED Code(s): 925784717 (2) Colonic stricture Current Visit: No Status: Acute Code(s): K56.699 - OTHER INTESTNL OBST UNSP TO PARTIAL VERSUS COMPLETE OBST SNOMED Code(s): 1362544 (3) Crohn's colitis Current Visit: No Status: Acute Code(s): K50.10 - CROHN'S DISEASE OF LARGE INTESTINE WITHOUT COMPLICATIONS SNOMED Code(s): 91187801 (4) Diabetes Current Visit: No Status: Acute Code(s): E11.9 - TYPE 2 DIABETES MELLITUS WITHOUT COMPLICATIONS SNOMED Code(s): 37551443 Plan: The basis the patient's blood pressure has responded well. Continue duration. Pulmonary toilet. The central line had been dislodged in his right neck so that was removed by nursing. He has good peripheral access. Monitor his blood sugars. He is receiving stress doses of steroids due to chronic steroid use. The NG tube is of the diaphragm likely on the basis of a hiatal hernia. The output will be monitored. Monitor the new ileostomy. Progressing slowly.
[2020-06-23 16:55] LABS: Glucose,Whole Blood 201 mg/dL (75-99)
--- NOTE | 2020-06-23 20:00 | P.CONS ---
History of Present Illness - History of Present Illness this is a pleasant 69 years old male with past medical history of asthma, CVA /TIA, diabetes mellitus, hearing disorder, hyperlipidemia, hypertension, chronic back pain, Crohn's disease and he is steroid dependent. He was admitted by surgical service for colonic stricture secondary to his Crohn's disease, he underwent subtotal colectomy and ileostomy formation. Postoperatively he was slightly hypotensive, continue to stress dose of hydrocortisone with albumin and his blood pressure is currently stable and patient is fully awake and oriented with no dizziness or other complaints. He has expected pain at the surgical site Labs reviewed and he has coarse cytosis of 30 1K upon is on steroids, sugar is elevated also due to the steroid effect. Also he is on D5 half normal saline Review of Systems CONSTITUTIONAL: No fever, no malaise, no fatigue. HEENT: No recent visual problems or hearing problems. Denied any sore throat. CARDIOVASCULAR: No orthopnea, PND, no palpitations, no syncope. PULMONARY: No shortness of breath, no cough, no hemoptysis. GASTROINTESTINAL: No diarrhea, no nausea, no vomiting, no abdominal pain. Normoactive bowel sounds. NEUROLOGICAL: No headaches, no weakness, no numbness. HEMATOLOGICAL: Denies any bleeding or petechiae. GENITOURINARY: Denies any burning micturition, frequency, or urgency. MUSCULOSKELETAL/RHEUMATOLOGICAL: Denies any joint pain, swelling, or any muscle pain. ENDOCRINE: Denies any polyuria or polydipsia. 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 OR 06/16/20 postponed d/t VT on arrival, cleared by Cardiology. History of Any Multi-Drug Resistant Organisms: MRSA Year Discovered:: January 2015 (At [facility] per patient) MDRO Source:: Right Ankle and Back (per patient) Past Surgical History: Adenoidectomy, Orthopedic Surgery, Tonsillectomy Additional Past Surgical History / Comment(s): 01/2015 Laminectomy, discectomy with decompression L5-S1, I&D epidural abscess L5-S1 (STATED HAD MULTIPLE BX- BENIGN)and aspiration R ankle, 02/2015 I&D L5-S1 at [facility], Yearly colonoscopy . left wrist surgically repaired after fx-PLATE/SCREW. RT HIP TEVIN/SCREWS. Past Anesthesia/Blood Transfusion Reactions: No Reported Reaction Additional Past Anesthesia/Blood Transfusion Reaction / Comm: Pt states he recieved blood 02/2015 at [facility] without reaction. Smoking Status: Never smoker - Past Family History Father Family Medical History: Myocardial Infarction (GA) Additional Family Medical History / Comment(s): Father of massive [place]. Mother Family Medical History: Diabetes Mellitus Medications and Allergies Home Medications Medication Instructions Recorded Confirmed Type Aspirin 325 mg PO DAILY 06/17/17 06/22/20 History Loperamide [Imodium] 4 mg PO QID 06/17/17 06/22/20 History glyBURIDE [Diabeta] 10 mg PO QAM 04/09/18 06/22/20 History lisinopriL [Zestril] 10 mg PO QAM 04/09/18 06/22/20 History Acetaminophen Tab [Tylenol Tab] 650 mg PO DIRECTED PRN 02/14/19 06/22/20 History predniSONE [Deltasone] 15 mg PO DAILY 11/29/19 06/22/20 History Budesonide-Formot 160-4.5 Mcg 2 puff INHALATION BID PRN 06/11/20 06/22/20 His tory [Symbicort 160-4.5 Mcg Inhaler] Finasteride [Proscar] 5 mg PO DAILY 06/11/20 06/22/20 History Montelukast [Singulair] 10 mg PO DAILY 06/11/20 06/22/20 History Multivit-Min/FA/Lycopen/Lutein 1 each PO DAILY 06/11/20 06/22/20 History [Centrum Silver Tablet] metFORMIN HCL [Glucophage] 500 mg PO DAILY 06/11/20 06/22/20 History carvediloL [Coreg] 3.125 mg PO BID 30 Days #60 tablet 06/17/20 06/22/20 Rx Allergies Allergy/AdvReac Type Severity Reaction Status Date / Time No Known Allergies Allergy Verified 06/22/20 11:55 Physical Exam Vitals: Vital Signs Temp Pulse Pulse Resp BP BP Pulse Ox 06/23/20 12:00 98.2 F 89 11 L 119/87 95 06/23/20 11:00 104 H 9 L 125/90 92 L 06/23/20 10:00 102 H 11 L 117/83 93 L 06/23/20 09:00 105 H 9 L 98/87 94 L 06/23/20 08:00 98.0 F 108 H 10 L 105/76 93 L 06/23/20 07:45 94 L 06/23/20 07:00 111 H 17 105/78 93 L 06/23/20 06:30 105 H 10 L 94/77 94 L 06/23/20 06:00 88 11 L 96/75 95 06/23/20 05:30 110 H 11 L 101/83 94 L 06/23/20 05:00 120 H 21 98/71 93 L 06/23/20 04:30 115 H 17 102/84 93 L 06/23/20 04:00 97.8 F 117 H 94 12 106/76 93 L 06/23/20 03:30 113 H 11 L 105/74 93 L 06/23/20 03:00 115 H 12 120/78 94 L 06/23/20 02:30 113 H 12 118/83 91 L 06/23/20 02:00 116 H 14 123/85 95 06/23/20 01:30 118 H 19 113/82 95 06/23/20 01:00 113 H 13 119/88 94 L 06/23/20 00:30 112 H 20 121/91 94 L 06/23/20 00:16 114 H 20 115/80 94 L 06/23/20 00:00 98.0 F 107 H 15 114/78 93 L 06/22/20 23:42 94 06/22/20 23:30 112 H 21 114/80 94 L 06/22/20 23:00 112 H 16 120/79 94 L 06/22/20 22:30 103 H 17 115/77 94 L 06/22/20 22:00 108 H 20 107/83 94 L 06/22/20 21:50 105 H 21 107/83 94 L 06/22/20 21:40 104 H 20 116/79 94 L 06/22/20 21:30 102 H 16 103/79 94 L 06/22/20 21:20 104 H 21 103/79 94 L 06/22/20 21:10 101 H 17 118/78 95 06/22/20 21:00 99 19 115/74 95 06/22/20 20:50 98 17 115/74 95 06/22/20 20:40 98 18 114/79 95 06/22/20 20:37 94 06/22/20 20:30 103 H 18 110/77 95 06/22/20 20:20 98 22 110/77 93 L 06/22/20 20:10 95 20 129/79 89 L 06/22/20 20:00 97.8 F 96 15 129/79 93 L 06/22/20 19:56 95 06/22/20 19:30 91 16 128/73 96 06/22/20 18:45 86 16 95/60 96 06/22/20 18:30 86 16 100/64 96 06/22/20 18:15 82 16 85/56 96 06/22/20 18:00 83 16 79/54 93 L 06/22/20 17:45 96 16 83/58 95 06/22/20 17:32 97 F L 96 16 88/61 95 Intake and Output 06/23/20 06/23/20 06/23/20 06:59 14:59 22:59 Intake Total 900 700 Output Total 655 475 Balance 245 225 Intake: IV 800 600 D5 .45 @ 100 mls/hr 800 600 Intake, IV Titration 100 100 Amount Piperacillin-Tazobactam 3 100 100 .375 gm In Sodium Chloride 0.9% 100 ml @ 25 mls/hr IVPB Q8HR [facility] Rx# :[id number] Output: Urine 655 475 Other: Voiding Method Indwelling Catheter Indwelling Catheter Weight 98.2 kg GENERAL: The patient is alert and oriented x3, not in any acute distress. Well developed, well nourished. HEENT: Pupils are round and equally reacting to light. EOMI. No scleral icterus. No conjunctival pallor. Normocephalic, atraumatic. No pharyngeal erythema. No thyromegaly. CARDIOVASCULAR: S1 and S2 present. No murmurs, rubs, or gallops. PULMONARY: Chest is clear to auscultation, no wheezing or crackles. -ABDOMEN: Soft, nontender, nondistended, normoactive bowel sounds. No palpable organomegaly. abdominal incision with a dressing. MUSCULOSKELETAL: No joint swelling or deformity. EXTREMITIES: No cyanosis, clubbing, or pedal edema. NEUROLOGICAL: Gross neurological examination did not reveal any focal deficits. SKIN: No rashes. No petechiae Results CBC & Chem 7: 06/23/20 05:00 06/23/20 05:00 Labs: Abnormal Lab Results - Last 24 Hours (Table) 06/22/20 06/22/20 06/23/20 Range/Units 18:16 19:59 05:00 WBC 31.7 H (3.8-10.6) k/uL RBC 3.93 L (4.30-5.90) m/uL Hgb 12.3 L (13.0-17.5) gm/dL Hct 38.8 L (39.0-53.0) % Neutrophils # 29.5 H (1.3-7.7) k/uL Lymphocytes # 0.4 L (1.0-4.8) k/uL Monocytes # 1.5 H (0-1.0) k/uL Sodium (137-145) mmol/L Carbon Dioxide (22-30) mmol/L Glucose (74-99) mg/dL POC Glucose (mg/dL) 201 H 218 H (75-99) mg/dL Calcium (8.4-10.2) mg/dL Magnesium (1.6-2.3) mg/dL Total Bilirubin (0.2-1.3) mg/dL Total Protein (6.3-8.2) g/dL Albumin (3.5-5.0) g/dL 06/23/20 06/23/20 06/23/20 Range/Units 05:00 06:54 11:46 WBC (3.8-10.6) k/uL RBC (4.30-5.90) m/uL Hgb (13.0-17.5) gm/dL Hct (39.0-53.0) % Neutrophils # (1.3-7.7) k/uL Lymphocytes # (1.0-4.8) k/uL Monocytes # (0-1.0) k/uL Sodium 134 L (137-145) mmol/L Carbon Dioxide 21 L (22-30) mmol/L Glucose 411 H (74-99) mg/dL POC Glucose (mg/dL) 406 H 313 H (75-99) mg/dL Calcium 8.0 L (8.4-10.2) mg/dL Magnesium 1.5 L (1.6-2.3) mg/dL Total Bilirubin 1.4 H (0.2-1.3) mg/dL Total Protein 5.4 L (6.3-8.2) g/dL Albumin 3.1 L (3.5-5.0) g/dL Assessment and Plan Assessment: Colonic stricture secondary to Crohn's disease status post subtotal colectomy and ileostomy formation Hyperlipidemia Hypertension Transient hypotensive, improved with fluids and steroids History of CVA/TIA with some residual blood test Hearing difficulty Chronic back pain Leukocytosis secondary to steroid effect and reactive from surgery Plan: This is a pleasant 69 years old male who presents for colonic stricture status post subtotal colectomy. Continue with hydrocortisone 100 mg 3 times a day. Monitor sugars and continue with insulin sliding scale. Labs and medication were reviewed.. Continue same treatment. Continue with symptomatic treatment. Resume home medication. Monitor lytes and vitals. DVT and GI prophylaxis. Further recommendations of the clinical course of the tyrone alvarado DVT prophylaxis: Subcutaneous heparin GI Prophylaxis: Ppi Prognosis is guarded
[2020-06-23 20:06] LABS: Glucose,Whole Blood 146 mg/dL (75-99)
[2020-06-24 04:18] LABS: Basophils % (A) 0 %; Eosinophils % (A) 0 %; HCT 33.4 % (39.0-53.0); HGB 10.5 gm/dL (13.0-17.5); Hypochromasia Slight; Lymphocytes # (A) 0.7 k/uL (1.0-4.8); Lymphocytes % (A) 3 %; MCH 31.2 pg (25.0-35.0); MCHC 31.3 g/dL (31.0-37.0); MCV 99.5 fL (80.0-100.0); Macrocytosis Slight; Mean Platelet Volume 7.8; Monocytes # (A) 1.1 k/uL (0-1.0); Monocytes % (A) 5 %; Neutrophils # (A) 19.1 k/uL (1.3-7.7); Neutrophils % (A) 91 %; Platelet Count 158 k/uL (150-450); RBC 3.36 m/uL (4.30-5.90); RDW 14.5 % (11.5-15.5); WBC 21.1 k/uL (3.8-10.6)
[2020-06-24 04:34] LABS: African American GFR (CKD) >90 (>60 ml/min/1.73 sqM); Anion Gap 4 mmol/L; Blood Urea Nitrogen 26 mg/dL (9-20); Calcium 8.5 mg/dL (8.4-10.2); Carbon Dioxide 26 mmol/L (22-30); Chloride 107 mmol/L (98-107); Glucose 135 mg/dL (74-99); Non-African American GFR(CKD) >90 (>60 ml/min/1.73 sqM); Potassium 4.3 mmol/L (3.5-5.1); Sodium 137 mmol/L (137-145)
[2020-06-24] MEDS: INSULIN ASPART (NovoLOG) 100 UNIT/ML VIAL SQ SCH ×4 (06:27→21:48)
[2020-06-24] MEDS: METOCLOPRAMIDE 5 MG/ML 2 ML VIAL IVP SCH ×2 (06:27→12:01)
[2020-06-24] MEDS: HEPARIN SODIUM,PORCINE 5,000 UNIT/ML 1 ML VIAL SQ SCH ×2 (08:08→15:12)
[2020-06-24] MEDS: HYDROCORTISONE SUCCINATE 100 MG/2 ML VIAL IV SCH ×2 (08:08→15:11)
[2020-06-24] MEDS: PANTOPRAZOLE 40 MG/10 ML VIAL IV SCH (08:08)
[2020-06-24] MEDS: MONTELUKAST 10 MG TAB PO SCH (08:08)
[2020-06-24] MEDS: lisinopriL 10 MG TAB PO SCH (08:08)
[2020-06-24] MEDS: carvediloL 3.125 MG TAB PO SCH ×2 (08:08→21:48)
[2020-06-24] MEDS: FINASTERIDE 5 MG TAB PO SCH (08:08)
[2020-06-24] MEDS ORDERED: HYDROmorphone 1 MG/ML 1 ML SYRINGE IVP PRN (08:35)
[2020-06-24] MEDS: KETOROLAC 15 MG/ML 1 ML VIAL IVP SCH ×3 (08:56→21:50)
--- NOTE | 2020-06-24 09:01 | XR ---
EXAMINATION TYPE: XR chest 1V portable DATE OF EXAM: 06/24/2020 COMPARISON: Prior chest x-ray 06/23/2020 HISTORY: Abnormal chest x-ray, assess lungs TECHNIQUE: Single frontal view of the chest is obtained. FINDINGS: There is no significant change. Patient is rotated. NG tube likely shows the distal tip at the level of the distal thoracic esophagus, partial intrathoracic stomach again noted. No pneumothor ax. Apical pleural thickening again seen. Volume loss in the right hemithorax with a similar appearan ce, is elevation of right hemidiaphragm. Patchy basilar density is again noted. Heart is stable. The central venous catheter has been removed or is no longer seen, possibly not included within the exam. IMPRESSION: Similar findings, probable subsegmental basilar atelectatic changes. NG tube as describe d.
[2020-06-24] MEDS: SYMBICORT 160-4.5 MCG INHALER INHALATION PRN ×2 (09:08→20:45)
--- NOTE | 2020-06-24 09:58 | P.PN ---
Subjective Progress Note Date: 06/24/20 Principal diagnosis: Colonic stricture, secondary to Crohn's disease, status post subtotal colectomy and ileostomy formation 69-year-old white male patient who was admitted to the hospital on 06/22/2024 subtotal colectomy and ileostomy formation for history of colonic stricture secondary to Crohn's disease, and experienced hypotension in the postoperative period and was transferred to the intensive care unit, where he was fluid resuscitated, patient require stress doses of IV hydrocortisone, and currently blood pressure is stable. 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 Today is postoperative day #2 status post open subtotal colectomy and ileostomy. Patient is doing well, she is on 2 L of oxygen, denies any drugs of breath, his pulse ox is 93%, he is in sinus mechanism with a rate of 99 BPM, IV fluids of lactated Ringer's at a rate of 100 mL, no other drips. NG tube is in place, and there has only been 50 mL of output in last 24 hours. Lung sounds are clear, diminished at the bases, no wheezes, today's chest x-ray has been reviewed showing subsegmental basilar atelectatic changes. There is volume loss in the right hemithorax and elevation of right hemidiaphragm. Patient needs encouragement on deep breathing and coughing and incentive spirometry use. He remains on stress doses of IV hydrocortisone at 100 mg IV every 8 hours, he is on intermittent doses of Dilaudid for pain control, he is on Reglan, abdomen is soft, there is postsurgical tenderness, but no acute distress. He is on GI and DVT prophylaxis. His been nothing by mouth except for ice chips and popsicles. Objective - Vital Signs Vital signs: Vital Signs Temp 97.9 F 06/24/20 08:00 Pulse 111 H 06/24/20 08:00 Resp 20 06/24/20 08:00 BP 150/98 06/24/20 08:00 Pulse Ox 93 L 06/24/20 08:00 Intake & Output 06/23/20 06/24/20 06/24/20 18:59 06:59 18:59 Intake Total 1300 1200 200 Output Total 875 485 85 Balance 425 715 115 Weight 99.9 kg Intake: IV 1200 1200 200 Lactated Ringers @ 100 1200 1200 200 mls/hr Intake, IV Titration 100 Amount Piperacillin-Tazobactam 3 100 .375 gm In Sodium Chloride 0.9% 100 ml @ 25 mls/hr IVPB Q8HR [facility] Rx# :[id number] Output: Urine 875 485 85 Other: Voiding Method Indwelling Catheter Indwelling Catheter Indwelling Catheter - Exam GENERAL EXAM: Alert, very pleasant, 69-year-old white male presented as a nocturnal pulse ox of 93%, resting comfortably in bed HEAD: Normocephalic/atraumatic. EYES: Normal reaction of pupils, equal size. Conjunctiva pink, sclera white. NOSE: Clear with pink turbinates. THROAT: No erythema or exudates. NECK: No masses, no JVD, no thyroid enlargement, no adenopathy. CHEST: No chest wall deformity. Symmetrical expansion. LUNGS: Equal air entry with no crackles, wheeze, rhonchi or dullness. CVS: Regular rate and rhythm, normal S1 and S2, no gallops, no murmurs, no rubs ABDOMEN: Soft, nontender. No hepatosplenomegaly, normal bowel sounds, no guarding or rigidity. Ileostomy in place, in the right lower quadrant, pink and viable, with no output. Abdominal incision covered with a surgical dressing, cl puneet dry and intact EXTREMITIES: No clubbing, no edema, no cyanosis, 2+ pulses and upper and lower extremities. MUSCULOSKELETAL: Muscle strength and tone normal. SPINE: No scoliosis or deformity SKIN: No rashes CENTRAL NERVOUS SYSTEM: Alert and oriented -3. No focal deficits, tone is normal in all 4 extremities. PSYCHIATRIC: Alert and oriented -3. Appropriate affect. Intact judgment and insight. - Labs CBC & Chem 7: 06/24/20 03:17 06/24/20 03:17 Labs: Abnormal Lab Results - Last 24 Hours (Table) 06/23/20 06/23/20 06/23/20 Range/Units 11:46 16:53 20:04 WBC (3.8-10.6) k/uL RBC (4.30-5.90) m/uL Hgb (13.0-17.5) gm/dL Hct (39.0-53.0) % Neutrophils # (1.3-7.7) k/uL Lymphocytes # (1.0-4.8) k/uL Monocytes # (0-1.0) k/uL BUN (9-20) mg/dL Glucose (74-99) mg/dL POC Glucose (mg/dL) 313 H 201 H 146 H (75-99) mg/dL 06/24/20 06/24/20 Range/Units 03:17 03:17 WBC 21.1 H (3.8-10.6) k/uL RBC 3.36 L (4.30-5.90) m/uL Hgb 10.5 L (13.0-17.5) gm/dL Hct 33.4 L (39.0-53.0) % Neutrophils # 19.1 H (1.3-7.7) k/uL Lymphocytes # 0.7 L (1.0-4.8) k/uL Monocytes # 1.1 H (0-1.0) k/uL BUN 26 H (9-20) mg/dL Glucose 135 H (74-99) mg/dL POC Glucose (mg/dL) (75-99) mg/dL Assessment and Plan Plan: Assessment: #1. Colonic stricture secondary to Crohn's colitis, status post exploratory laparotomy, which was converted to open procedure, total colectomy with ileostomy, postoperative day #2 #2. Postoperative hypotension, recovered with stress doses of IV hydrocortisone, and fluid resuscitation #3. History of long-standing inflammatory bowel disease, Crohn's colitis with strictures #4. Chronic use of steroids for history of Crohn's colitis, on stress doses of hydrocortisone #5. Leukocytosis, possibly reactive, and possibly related to steroid use #6. Acute hypoxic respiratory failure related to atelectasis #7. History of CVA/TIA #8. Diabetes mellitus type 2 #9. Hypertension #10. 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 Chronic back pain #13. History of MRSA infection #14. History of COPD Plan: Continue current deep breathing and coughing, today's chest x-ray showing subsegmental atelectasis, volume loss in the right lung related to atelectatic changes. Hemodynamically stable, we'll contact the IV hydrocortisone to 50 mg every 8 hours, patient remains nothing by mouth, except for ice chips, no significant output from the NG tube. Surgical services are following, pain is well controlled, increase activity as tolerated, consult physical therapy. No issues overnight, from pulmonary/CC perspective patient can be transferred out of intensive care unit to general medical surgical floor without telemetry I performed a history & physical examination of the patient and discussed their management with my nurse practitioner, Cynthia Naranjo. I reviewed the nurse practitioner's note and agree with the documented findings and plan of care. Lung sounds are positive for binge breath sounds. The findings and the impression was discussed with the patient. I attest to the documentation by the nurse practitioner. Time with Patient: Less than 30
--- NOTE | 2020-06-24 10:17 | P.PN ---
Subjective Progress Note Date: 06/24/20 Principal diagnosis: Status post subtotal colectomy with ileostomy The patient is seen on rounds. He is having some pain which was controlled with PROFESSOR OF APOLOGETICS. Nursing feels that he is overly sedated with the PROFESSOR OF APOLOGETICS so is requesting intermittent Dilaudid IV push. He is having slight nausea no vomiting. Still not doing well with the incentive spirometry. Objective - Vital Signs Vital signs: Vital Signs Temp 97.9 F 06/24/20 08:00 Pulse 111 H 06/24/20 08:00 Resp 20 06/24/20 08:00 BP 150/98 06/24/20 08:00 Pulse Ox 93 L 06/24/20 08:00 Intake & Output 06/23/20 06/24/20 06/24/20 18:59 06:59 18:59 Intake Total 1300 1200 200 Output Total 875 485 85 Balance 425 715 115 Weight 99.9 kg Intake: IV 1200 1200 200 Lactated Ringers @ 100 1200 1200 200 mls/hr Intake, IV Titration 100 Amount Piperacillin-Tazobactam 3 100 .375 gm In Sodium Chloride 0.9% 100 ml @ 25 mls/hr IVPB Q8HR [facility] Rx# :[id number] Output: Urine 875 485 85 Other: Voiding Method Indwelling Catheter Indwelling Catheter Indwelling Catheter - Constitutional General appearance: Present: cooperative, no acute distress - Respiratory Respiratory: bilateral: CTA, diminished (at the bases) - Cardiovascular Rhythm: regular (tachycardic) - Gastrointestinal General gastrointestinal: Present: absent bowel sounds Localized gastrointestinal: surgical scar: diffuse (Incision is intact clean and dry with some minimal ecchymosis, ostomy is pink and viable with no liquid or flatus at this point.) - Labs CBC & Chem 7: 06/24/20 03:17 06/24/20 03:17 Labs: Abnormal Lab Results - Last 24 Hours (Table) 06/23/20 06/23/20 06/23/20 Range/Units 11:46 16:53 20:04 WBC (3.8-10.6) k/uL RBC (4.30-5.90) m/uL Hgb (13.0-17.5) gm/dL Hct (39.0-53.0) % Neutrophils # (1.3-7.7) k/uL Lymphocytes # (1.0-4.8) k/uL Monocytes # (0-1.0) k/uL BUN (9-20) mg/dL Glucose (74-99) mg/dL POC Glucose (mg/dL) 313 H 201 H 146 H (75-99) mg/dL 06/24/20 06/24/20 Range/Units 03:17 03:17 WBC 21.1 H (3.8-10.6) k/uL RBC 3.36 L (4.30-5.90) m/uL Hgb 10.5 L (13.0-17.5) gm/dL Hct 33.4 L (39.0-53.0) % Neutrophils # 19.1 H (1.3-7.7) k/uL Lymphocytes # 0.7 L (1.0-4.8) k/uL Monocytes # 1.1 H (0-1.0) k/uL BUN 26 H (9-20) mg/dL Glucose 135 H (74-99) mg/dL POC Glucose (mg/dL) (75-99) mg/dL Assessment and Plan (1) Chronic steroid use Current Visit: No Status: Acute Code(s): FRO8539 - SNOMED Code(s): 038342472 (2) Colonic stricture Current Visit: No Status: Acute Code(s): K56.699 - OTHER INTESTNL OBST UNSP TO PARTIAL VERSUS COMPLETE OBST SNOMED Code(s): 2650461 (3) Crohn's colitis Current Visit: No Status: Acute Code(s): K50.10 - CROHN'S DISEASE OF LARGE INTESTINE WITHOUT COMPLICATIONS SNOMED Code(s): 69827824 (4) Diabetes Current Visit: No Status: Acute Code(s): E11.9 - TYPE 2 DIABETES MELLITUS WITHOUT COMPLICATIONS SNOMED Code(s): 94034570 Plan: The patient is surgically stable. The NG is above the stomach but he is tolerating it without vomiting or significant distention. We will monitor for 6 hours off of suction and if he tolerates that the NG will be removed later today. Encourage activity. Encourage incentive spirometry. He is being weaned from his stress doses of steroids. Reactive leukocytosis is better today. Progressing slowly. Surgically stable for transfer to surgical floor
--- NOTE | 2020-06-24 10:25 | P.PN ---
Subjective this is a pleasant 69 years old male with past medical history of asthma, CVA/TIA, diabetes mellitus, hearing disorder, hyperlipidemia, hypertension, chronic back pain, Crohn's disease and he is steroid dependent. He was admitted by surgical service for colonic stricture secondary to his Crohn's disease, he underwent subtotal colectomy and ileostomy formation. Postoperatively he was slightly hypotensive, continue to stress dose of hydrocortisone with albumin and his blood pressure is currently stable and patient is fully awake and oriented with no dizziness or other complaints. He has expected pain at the surgical site Labs reviewed and he has coarse cytosis of 30 1K upon is on steroids, sugar is elevated also due to the steroid effect. Also he is on D5 half normal saline 06/24/2020 Patient is doing fine, no specific complaint and no chest pain or dyspnea, NG tube is in place but probably it will be discontinued today by surgery team No bowel movement yet. Abdomen soft and pain is controlled. Patient still nothing by mouth except for ice chips. Vitals and labs are reviewed and the looks stable. Chest x-ray: Reviewed by myself showing atelectasis he remains on hydrocortisone, stress dose review of systems CONSTITUTIONAL: No fever, no malaise, no fatigue. HEENT: No recent visual problems or hearing problems. Denied any sore throat. CARDIOVASCULAR: No orthopnea, PND, no palpitations, no syncope. PULMONARY: No shortness of breath, no cough, no hemoptysis. GASTROINTESTINAL: No diarrhea, no nausea, no vomiting, no abdominal pain. Normoactive bowel sounds. NEUROLOGICAL: No headaches, no weakness, no numbness. HEMATOLOGICAL: Denies any bleeding or petechiae. Active Medications Generic Name Dose Route Start Last Admin Trade Name Enderq PRN Reason Stop Dose Admin Budesonide/Formoterol Fumarate 2 puff 06/22/20 17:38 06/24/20 09:08 Symbicort 160-4.5 Mcg Inhaler INHALATION 2 puff BID PRN Administration Shortness Of Breath Carvedilol 3.125 mg 06/22/20 21:00 06/24/20 08:08 Carvedilol 3.125 Mg Tab PO 3.125 mg BID JOHN Administration Finasteride 5 mg 06/23/20 09:00 06/24/20 08:08 Finasteride 5 Mg Tab PO 5 mg DAILY JOHN Administration Heparin Sodium (Porcine) 5,000 unit 06/23/20 00:00 06/24/20 08:08 Heparin Sodium,Porcine 5,000 Unit/Ml 1 Ml Vial SQ 5,000 unit Q8HR JOHN Administration Hydrocortisone Sodium Succinate 50 mg 06/24/20 16:00 Hydrocortisone Succinate 100 Mg/2 Ml Vial IV Q8HR JOHN Hydromorphone HCl 0.2 mg 06/22/20 18:12 06/23/20 15:15 Hydromorphone Older Adult Social Work Specialist 10 Mg/50 Ml Bag IV 0.2 mg PER PROTOCOL PRN Administration Pain Control Protocol Hydromorphone HCl 1 mg 06/24/20 08:35 Hydromorphone 1 Mg/Ml 1 Ml Syringe IVP Q4HR PRN Pain Hydromorphone HCl 0.5 mg 06/24/20 08:35 Hydromorphone 0.5 Mg/0.5 Ml Syringe IVP Q4HR PRN Pain Lactated Ringer's 1,000 mls @ 100 mls/hr 06/23/20 23:45 06/23/20 23:45 Lactated Ringers IV 100 mls/hr .Q10H JOHN Administration Insulin Aspart 0 unit 06/23/20 07:30 06/24/20 06:27 Insulin Aspart (Novolog) 100 Unit/Ml Vial SQ Not Given ACHS JOHN Protocol Ketorolac Tromethamine 15 mg 06/24/20 09:00 06/24/20 08:56 Ketorolac 15 Mg/Ml 1 Ml Vial IVP 06/27/20 08:50 15 mg Q6H JOHN Administration Lisinopril 10 mg 06/23/20 09:00 06/24/20 08:08 Lisinopril 10 Mg Tab PO 10 mg QAM JOHN Administration Metoclopramide HCl 10 mg 06/22/20 18:00 06/24/20 06:27 Metoclopramide 5 Mg/Ml 2 Ml Vial IVP 06/24/20 12:01 10 mg Q6H JOHN Administration Miscellaneous Information 1 each 06/23/20 10:03 Magnesium Replacement Protocol 1 Each Misc MISCELLANE DAILY PRN Per Protocol Protocol Montelukast Sodium 10 mg 06/23/20 09:00 06/24/20 08:08 Montelukast 10 Mg Tab PO 10 mg DAILY JOHN Administration Naloxone HCl 0.2 mg 06/22/20 18:12 Naloxone 0.4 Mg/Ml 1 Ml Vial IV Q2M PRN Opioid Reversal Pantoprazole Sodium 40 mg 06/23/20 09:00 06/24/20 08:08 Pantoprazole 40 Mg/10 Ml Vial IV 40 mg DAILY JOHN Administration Objective - Vital Signs Vital signs: Vital Signs Temp 97.9 F 06/24/20 08:00 Pulse 111 H 06/24/20 08:00 Resp 20 06/24/20 08:00 BP 150/98 06/24/20 08:00 Pulse Ox 93 L 06/24/20 08:00 Intake & Output 06/23/20 06/24/20 06/24/20 18:59 06:59 18:59 Intake Total 1300 1200 200 Output Total 875 485 85 Balance 425 715 115 Weight 99.9 kg Intake: IV 1200 1200 200 Lactated Ringers @ 100 1200 1200 200 mls/hr Intake, IV Titration 100 Amount Piperacillin-Tazobactam 3 100 .375 gm In Sodium Chloride 0.9% 100 ml @ 25 mls/hr IVPB Q8HR [facility] Rx# :[id number] Output: Urine 875 485 85 Other: Voiding Method Indwelling Catheter Indwelling Catheter Indwelling Catheter - Exam GENERAL: The patient is alert and oriented x3, not in any acute distress. Well developed, well nourished. HEENT: Pupils are round and equally reacting to light. EOMI. No scleral icterus. No conjunctival pallor. Normocephalic, atraumatic. No pharyngeal erythema. No thyromegaly. CARDIOVASCULAR: S1 and S2 present. No murmurs, rubs, or gallops. PULMONARY: Chest is clear to auscultation, no wheezing or crackles. -ABDOMEN: Soft, nontender, nondistended, normoactive bowel sounds. No palpable organomegaly. abdominal incision with a dressing. MUSCULOSKELETAL: No joint swelling or deformity. EXTREMITIES: No cyanosis, clubbing, or pedal edema. NEUROLOGICAL: Gross neurological examination did not reveal any focal deficits. SKIN: No rashes. No petechiae - Labs CBC & Chem 7: 06/24/20 03:17 06/24/20 03:17 Labs: Abnormal Lab Results - Last 24 Hours (Table) 06/23/20 06/23/20 06/23/20 Range/Units 11:46 16:53 20:04 WBC (3.8-10.6) k/uL RBC (4.30-5.90) m/uL Hgb (13.0-17.5) gm/dL Hct (39.0-53.0) % Neutrophils # (1.3-7.7) k/uL Lymphocytes # (1.0-4.8) k/uL Monocytes # (0-1.0) k/uL BUN (9-20) mg/dL Glucose (74-99) mg/dL POC Glucose (mg/dL) 313 H 201 H 146 H (75-99) mg/dL 06/24/20 06/24/20 Range/Units 03:17 03:17 WBC 21.1 H (3.8-10.6) k/uL RBC 3.36 L (4.30-5.90) m/uL Hgb 10.5 L (13.0-17.5) gm/dL Hct 33.4 L (39.0-53.0) % Neutrophils # 19.1 H (1.3-7.7) k/uL Lymphocytes # 0.7 L (1.0-4.8) k/uL Monocytes # 1.1 H (0-1.0) k/uL BUN 26 H (9-20) mg/dL Glucose 135 H (74-99) mg/dL POC Glucose (mg/dL) (75-99) mg/dL Assessment and Plan Assessment: Colonic stricture secondary to Crohn's disease status post subtotal colectomy and ileostomy formation Hyperlipidemia Hypertension Transient hypotensive, improved with fluids and steroids History of CVA/TIA with some residual blood test Hearing difficulty Chronic back pain Leukocytosis secondary to steroid effect and reactive from surgery Plan: This is a pleasant 69 years old male who presents for colonic stricture status p ost subtotal colectomy. Continue with hydrocortisone 100 mg 3 times a day. Monitor sugars and continue with insulin sliding scale. Labs and medication were reviewed.. Continue same treatment. Continue with symptomatic treatment. Resume home medication. Monitor lytes and vitals. DVT and GI prophylaxis. Further recommendations of the clinical course of the patient DVT prophylaxis: Subcutaneous heparin GI Prophylaxis: Ppi Prognosis is guarded
[2020-06-24 11:50] LABS: Glucose,Whole Blood 176 mg/dL (75-99)
[2020-06-24] MEDS: LACTATED RINGERS 1,000 ML IV SCH (12:02)
--- NOTE | 2020-06-24 14:13 | CDI ---
Documentation Clarification Form Date: 06/24/2020 01:28:00 PM From: Esperanza Lopez RN, CCDS Admit Date: 06/22/2020 10:16:00 AM Patient Name: Newton Betancourt Visit Number: [id number] Discharge Date: ATTENTION: The Clinical Documentation Specialists (CDI) and [facility] Coding Staff appreciate your assistance in clarifying documentation. Please respond to the clarification below the line at the bottom and electronically sign. The CDI & [facility] Coding staff will review the response and follow-up if needed. Please note: Queries are made part of the Legal Health Record. If you have any questions, please contact the author of this message via ITS. Dr. Xavier Stern Transient Hypotension is documented in the medical consult and subsequent progress notes starting on 06/23. Patients Admitting Diagnosis: Colonic stricture secondary to Crohns disease. Post-Operative Diagnosis: Colonic stricture secondary to Crohn's disease Procedure performed: Rigid sigmoidoscopy with tattooing, diagnostic laparoscopy Subtotal colectomy and Ileostomy formation History/Risk Factors: Crohn's colitis, Chronic use of steroids, Diabetes Mellitus type 2, Hypertension , History of Fpwts-Qoueqambe-Hwuwm syndrome , CVA, TIA Clinical Indicators: 69-year-old male who was admitted on 06/22 for subtotal colectomy and ileostomy formation experienced hypotension in the postoperative period and was transferred to the intensive care unit where he was fluid resuscitated and required stress doses of IV hydrocortisone. 06/22@17:45: 83/58 96 16, 18:00 79/54 83 16. 18:15 85/56 82 16 Treatment: ICU/Telemetry monitoring Albumin Human 5 % 500 ml ivpb 06/22 06/24 Pulmonary progress note: Postoperative hypotension, recovered with stress dose o IV hydrocortisone, and fluid resuscitation. Solu-Cortef 100 mg iv q 8 hrs 06/23-06/24 Solu-cortef 50 mg iv q 8 hrs 06/24 Lactated Ringer's @ 100 mls/hr iv In order to accurately reflect this patients severity of illness, please clarify if the transient hypotension, postop hypertension: -is a complication of surgical procedure -is an expected outcome of the surgical procedure -is related to co-morbid condition(s) of specify -Other please specify -Unable to determine (Last Revision: October 2019) hypotension secondary to chronic steroid use , with possible secondary adrenal insufficiency MTDD
--- NOTE | 2020-06-24 14:44 | CDI ---
Documentation Clarification Form Date: 06/24/2020 02:15:01 PM From: Esperanza Lopez RN, CCDS Admit Date: 06/22/2020 10:16:00 AM Patient Name: Newton Betancourt Visit Number: [id number] Discharge Date: ATTENTION: The Clinical Documentation Specialists (CDI) and [facility] Coding Staff appreciate your assistance in clarifying documentation. Please respond to the clarification below the line at the bottom and electronically sign. The CDI & [facility] Coding staff will review the response and follow-up if needed. Please note: Queries are made part of the Legal Health Record. If you have any questions, please contact the author of this message via ITS. Dr. Tru Pringle 06/24 progress note acute hypoxic respiratory failure related to atelectasis is documented. Please provide further clarification of the atelectasis. Patients Admitting Diagnosis: Colonic stricture secondary to Crohns disease. Post-Operative Diagnosis: Colonic stricture secondary to Crohn's disease Procedure performed: Rigid sigmoidoscopy with tattooing, diagnostic laparoscopy, and Subtotal colectomy and Ileostomy formation History/Risk Factors: Crohn's colitis, Chronic use of steroids, Diabetes Mellitus type 2, Hypertension , History of Rlzph-Myhoqrvzn-Fmehm syndrome , CVA, TIA Clinical Indicators: 69-year-old male who was admitted on 06/22 for subtotal colectomy and ileostomy formation experienced hypotension in the postoperative period and was transferred to the intensive care unit where he was fluid resuscitated and required stress doses of IV hydrocortisone. He is post- operative day #2 He is on 2/L of oxygen his pulse ox is 93 %. Lung sounds are clear, diminished at the bases, no wheezes. 06/24 Chest x-ray: showing subsegmental basilar atelectatic changes. There is volume loss in the right hemithorax and elevation of right hemidiaphragm. per pulmonary progress note on 06/24. 06/24 Vital signs: 08:00 159/98 111 20 97.9 93 % 2/L NC (respiratory effort normal) 06/24 Labs: WBC 21.1 Treatment: ICU/Telemetry Monitoring Hourly use of incentive spirometer Symbicort Inhaler 2 puff bid/prn Solu-Cortef 100 mg iv q 8 hrs 06/23-06/24 Solu-cortef 50 mg iv q 8 hrs 06/24 Lactated Ringer's @ 100 mls/hr iv In order to accurately reflect this patients severity of illness, please clarify if the Acute hypoxic respiratory secondary to Atelectasis: -is a complication of surgical procedure -is an expected outcome of the surgical procedure -is related to co-morbid condition(s) of -Other please specify -Unable to determine (Last Revision: October 2019) MTDD
[2020-06-24] MEDS: HYDROmorphone 0.5 MG/0.5 ML SYRINGE IVP PRN (16:45)
[2020-06-24 17:08] LABS: Glucose,Whole Blood 185 mg/dL (75-99)
[2020-06-24 21:44] LABS: Glucose,Whole Blood 210 mg/dL (75-99)
--- NOTE | 2020-06-24 21:50 | XR ---
EXAMINATION TYPE: XR chest 1V DATE OF EXAM: 06/24/2020 COMPARISON: Today HISTORY: Short of breath TECHNIQUE: Single view FINDINGS: There is some atelectasis at the lung bases. There is no heart failure. There is elevated r ight diaphragm. There are chest leads. Heart is probably enlarged. IMPRESSION: Atelectasis at the lung bases probably not changed compared to exam this morning. No hear t failure seen.
[2020-06-25] MEDS: HEPARIN SODIUM,PORCINE 5,000 UNIT/ML 1 ML VIAL SQ SCH ×3 (00:33→16:42)
[2020-06-25] MEDS: HYDROCORTISONE SUCCINATE 100 MG/2 ML VIAL IV SCH ×3 (00:33→16:44)
[2020-06-25] MEDS: LACTATED RINGERS 1,000 ML IV SCH ×3 (00:34→16:54)
[2020-06-25] MEDS: KETOROLAC 15 MG/ML 1 ML VIAL IVP SCH ×4 (03:56→21:28)
[2020-06-25 06:16] LABS: Basophils % (A) 0 %; Eosinophils % (A) 0 %; HCT 30.3 % (39.0-53.0); HGB 9.6 gm/dL (13.0-17.5); Lymphocytes # (A) 0.6 k/uL (1.0-4.8); Lymphocytes % (A) 4 %; MCH 30.9 pg (25.0-35.0); MCHC 31.7 g/dL (31.0-37.0); MCV 97.6 fL (80.0-100.0); Mean Platelet Volume 7.5; Monocytes # (A) 0.8 k/uL (0-1.0); Monocytes % (A) 5 %; Neutrophils # (A) 14.5 k/uL (1.3-7.7); Neutrophils % (A) 91 %; Platelet Count 149 k/uL (150-450); RDW 14.6 % (11.5-15.5)
[2020-06-25 06:30] LABS: Glucose,Whole Blood 175 mg/dL (75-99)
[2020-06-25] MEDS: INSULIN ASPART (NovoLOG) 100 UNIT/ML VIAL SQ SCH ×4 (06:33→21:28)
[2020-06-25 06:34] LABS: African American GFR (CKD) >90 (>60 ml/min/1.73 sqM); Anion Gap 2 mmol/L; Blood Urea Nitrogen 26 mg/dL (9-20); Calcium 8.3 mg/dL (8.4-10.2); Carbon Dioxide 29 mmol/L (22-30); Chloride 106 mmol/L (98-107); Glucose 176 mg/dL (74-99); Non-African American GFR(CKD) >90 (>60 ml/min/1.73 sqM); Potassium 3.7 mmol/L (3.5-5.1); Sodium 137 mmol/L (137-145)
[2020-06-25] MEDS ORDERED: POTASSIUM CHLORIDE ER 20 MEQ TAB.ER PO SCH (08:00)
[2020-06-25] MEDS: PANTOPRAZOLE 40 MG/10 ML VIAL IV SCH (08:51)
[2020-06-25] MEDS: lisinopriL 10 MG TAB PO SCH (08:52)
[2020-06-25] MEDS: MONTELUKAST 10 MG TAB PO SCH (08:52)
[2020-06-25] MEDS: carvediloL 3.125 MG TAB PO SCH ×2 (08:52→21:28)
[2020-06-25] MEDS: FINASTERIDE 5 MG TAB PO SCH (08:53)
[2020-06-25] MEDS: SYMBICORT 160-4.5 MCG INHALER INHALATION PRN (09:01)
--- NOTE | 2020-06-25 10:12 | P.PN ---
Subjective Progress Note Date: 06/25/20 Principal diagnosis: Colonic stricture, secondary to Crohn's disease, status post subtotal colectomy and ileostomy formation 69-year-old white male patient who was admitted to the hospital on 06/22/2024 subtotal colectomy and ileostomy formation for history of colonic stricture secondary to Crohn's disease, and experienced hypotension in the postoperative period and was transferred to the intensive care unit, where he was fluid resuscitated, patient require stress doses of IV hydrocortisone, and currently blood pressure is stable. Patient is awake and alert, in no acute distress, his oriented 3, more awake on today's exam done yesterday, HOST HOSTESS was discontinued, his pain is reasonably controlled, he is pulling 1000 mL on this incentive spirometer. Today is postoperative day #2 status post open subtotal colectomy and ileostomy. Patient is doing well, she is on 2 L of oxygen, denies any drugs of breath, his pulse ox is 93%, he is in sinus mechanism with a rate of 99 BPM, IV fluids of lactated Ringer's at a rate of 100 mL, no other drips. NG tube is in place, and there has only been 50 mL of output in last 24 hours. Lung sounds are clear, diminished at the bases, no wheezes, today's chest x-ray has been reviewed showing subsegmental basilar atelectatic changes. There is volume loss in the right hemithorax and elevation of right hemidiaphragm. Patient needs encouragement on deep breathing and coughing and incentive spirometry use. He remains on stress doses of IV hydrocortisone at 100 mg IV every 8 hours, he is on intermittent doses of Dilaudid for pain control, he is on Reglan, abdomen is soft, there is postsurgical tenderness, but no acute distress. He is on GI and DVT prophylaxis. His been nothing by mouth except for ice chips and popsicles. On 06/25/2020 patient seen in follow-up in intensive care unit, he is awake and alert, he is currently on 2 L of oxygen pulse ox of 93%, denies any shortness of breath, he is working on the incentive spirometer. Occasional cough, no phlegm production, lung sounds are diminished, with some basilar crackles at posterior bases. Patient requires a lot of encouragement to do deep breathing and coug oleksandr, IV fluids lactated Ringer's at a rate of 75 ML per hour, no other drips. Hemodynamically patient is stable. Today's chest x-ray shows atelectasis of the lung bases stable from yesterday's exam. Patient is tolerating ice chips, and popsicles. Ileostomy is pink, no stool or gas seen in the bag. Diminished soft, no postsurgical tenderness, no guarding. No nausea or vomiting. She is doing well, today's labs have been reviewed, no inguinal blood cell count trending down, down to 16 on today's labs, hemoglobin is 9.6, electrolytes are within normal limits, BUN at 26 creatinine 0.8 Objective - Vital Signs Vital signs: Vital Signs Temp 98.4 F 06/25/20 07:00 Pulse 91 06/25/20 07:00 Resp 19 06/25/20 08:00 BP 160/104 06/25/20 07:00 Pulse Ox 93 L 06/24/20 08:00 Intake & Output 06/24/20 06/25/20 06/25/20 18:59 06:59 18:59 Intake Total 800 1600 200 Output Total 835 900 330 Balance -35 700 -130 Intake: IV 800 1600 200 Lactated Ringers @ 412 556 9257 200 mls/hr Output: Urine 835 900 300 Urine/Stool Mix 30 Other: Voiding Method Indwelling Catheter Urinal Urinal - Exam GENERAL EXAM: Alert, very pleasant, 69-year-old white male on 2 L of oxygen with a pulse ox of 93%, resting comfortably in bed HEAD: Normocephalic/atraumatic. EYES: Normal reaction of pupils, equal size. Conjunctiva pink, sclera white. NOSE: Clear with pink turbinates. THROAT: No erythema or exudates. NECK: No masses, no JVD, no thyroid enlargement, no adenopathy. CHEST: No chest wall deformity. Symmetrical expansion. LUNGS: Equal air entry with no crackles, wheeze, rhonchi or dullness. CVS: Regular rate and rhythm, normal S1 and S2, no gallops, no murmurs, no rubs ABDOMEN: Soft, nontender. No hepatosplenomegaly, normal bowel sounds, no guarding or rigidity. Ileostomy in place, in the right lower quadrant, pink and viable, with no output. Abdominal incision covered with a surgical dressing, clean dry and intact EXTREMITIES: No clubbing, no edema, no cyanosis, 2+ pulses and upper and lower extremities. MUSCULOSKELETAL: Muscle strength and tone normal. SPINE: No scoliosis or deformity SKIN: No rashes CENTRAL NERVOUS SYSTEM: Alert and oriented -3. No focal deficits, tone is normal in all 4 extremities. PSYCHIATRIC: Alert and oriented -3. Appropriate affect. Intact judgment and insight. - Labs CBC & Chem 7: 06/25/20 05:22 06/25/20 05:22 Labs: Abnormal Lab Results - Last 24 Hours (Table) 06/24/20 06/24/20 06/24/20 Range/Units 11:48 17:06 21:43 WBC (3.8-10.6) k/uL RBC (4.30-5.90) m/uL Hgb (13.0-17.5) gm/dL Hct (39.0-53.0) % Plt Count (150-450) k/uL Neutrophils # (1.3-7.7) k/uL Lymphocytes # (1.0-4.8) k/uL BUN (9-20) mg/dL Glucose (74-99) mg/dL POC Glucose (mg/dL) 176 H 185 H 210 H (75-99) mg/dL Calcium (8.4-10.2) mg/dL 06/25/20 06/25/20 06/25/20 Range/Units 05:22 05:22 06:29 WBC 16.0 H (3.8-10.6) k/uL RBC 3.10 L (4.30-5.90) m/uL Hgb 9.6 L (13.0-17.5) gm/dL Hct 30.3 L (39.0-53.0) % Plt Count 149 L (150-450) k/uL Neutrophils # 14.5 H (1.3-7.7) k/uL Lymphocytes # 0.6 L (1.0-4.8) k/uL BUN 26 H (9-20) mg/dL Glucose 176 H (74-99) mg/dL POC Glucose (mg/dL) 175 H (75-99) mg/dL Calcium 8.3 L (8.4-10.2) mg/dL Assessment and Plan Plan: Assessment: #1. Colonic stricture secondary to Crohn's colitis, status post exploratory laparotomy, which was converted to open procedure, total colectomy with ileostomy, postoperative day #3 #2. Postoperative hypotension, recovered with stress doses of IV hydrocortisone, and fluid resuscitation #3. History of long-standing inflammatory bowel disease, Crohn's colitis with strictures #4. Chronic use of steroids for history of Crohn's colitis, on stress doses of hydrocortisone #5. Leukocytosis, possibly reactive, and possibly related to steroid use #6. Acute hypoxic respiratory failure related to postoperative atelectasis, expected outcome of the surgical procedure #7. History of CVA/TIA #8. Diabetes mellitus type 2 #9. Hypertension #10. 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 Chronic back pain #13. History of MRSA infection #14. History of COPD Plan: Today chest x-ray results have been noted, showing bibasilar atelectasis, continue encouraging deep breathing and coughing, encouraged the patient to sit up in the chair, ambulate, deep breathing and cough. No acute issues overnight, hemodynamically stable, blood pressure has been stable, no altered mentation, dietary recommendations per surgery.Stable for transfer to medical surgical floor without telemetry, continue with pain control. We'll continue to follow I performed a history & physical examination of the patient and discussed their management with my nurse practitioner, Cynthia Naranjo. I reviewed the nurse practitioner's note and agree with the documented findings and plan of care. Lung sounds are positive for binge breath sounds. The findings and the impression was discussed with the patient. I attest to the documentation by the nurse practitioner. Time with Patient: Less than 30
[2020-06-25 12:14] LABS: Glucose,Whole Blood 183 mg/dL (75-99)
[2020-06-25] MEDS: HYDROmorphone 0.5 MG/0.5 ML SYRINGE IVP PRN (12:27)
[2020-06-25 16:59] LABS: Glucose,Whole Blood 172 mg/dL (75-99)
--- NOTE | 2020-06-25 17:12 | P.PN ---
Subjective Progress Note Date: 06/25/20 Principal diagnosis: Status post subtotal colectomy with ileostomy The patient is seen on rounds this morning. NG tube was removed yesterday. No nausea or vomiting. He is thirsty. Pain is controlled. The ostomy appliance was changed by the ostomy nurse this morning. The patient is doing fair with his incentive spirometry, he did about 1000 mL. Objective - Vital Signs Vital signs: Vital Signs Temp 98.5 F 06/25/20 15:40 Pulse 95 06/25/20 15:40 Resp 22 06/25/20 16:00 BP 147/89 06/25/20 15:40 Pulse Ox 95 06/25/20 15:40 Intake & Output 06/24/20 06/25/20 06/25/20 18:59 06:59 18:59 Intake Total 800 1600 775 Output Total 835 900 630 Balance -35 700 145 Intake: IV 800 1600 575 Lactated Ringers @ 487 226 9359 575 mls/hr Oral 200 Output: Urine 835 900 600 Urine/Stool Mix 30 Other: Voiding Method Indwelling Catheter Urinal Urinal # Voids 1 - Constitutional General appearance: Present: cooperative, no acute distress - Respiratory Respiratory: bilateral: CTA, diminished (at the bases) - Cardiovascular Rhythm: regular - Gastrointestinal General gastrointestinal: Present: decreased bowel sounds, soft Localized gastrointestinal: surgical scar: diffuse (incision intact, clean and dry. Ostomy pink and viable) - Labs CBC & Chem 7: 06/25/20 05:22 06/25/20 05:22 Labs: Abnormal Lab Results - Last 24 Hours (Table) 06/24/20 06/25/20 06/25/20 Range/Units 21:43 05:22 05:22 WBC 16.0 H (3.8-10.6) k/uL RBC 3.10 L (4.30-5.90) m/uL Hgb 9.6 L (13.0-17.5) gm/dL Hct 30.3 L (39.0-53.0) % Plt Count 149 L (150-450) k/uL Neutrophils # 14.5 H (1.3-7.7) k/uL Lymphocytes # 0.6 L (1.0-4.8) k/uL BUN 26 H (9-20) mg/dL Glucose 176 H (74-99) mg/dL POC Glucose (mg/dL) 210 H (75-99) mg/dL Calcium 8.3 L (8.4-10.2) mg/dL 06/25/20 06/25/20 06/25/20 Range/Units 06:29 12:13 16:57 WBC (3.8-10.6) k/uL RBC (4.30-5.90) m/uL Hgb (13.0-17.5) gm/dL Hct (39.0-53.0) % Plt Count (150-450) k/uL Neutrophils # (1.3-7.7) k/uL Lymphocytes # (1.0-4.8) k/uL BUN (9-20) mg/dL Glucose (74-99) mg/dL POC Glucose (mg/dL) 175 H 183 H 172 H (75-99) mg/dL Calcium (8.4-10.2) mg/dL Assessment and Plan (1) Chronic steroid use Current Visit: No Status: Acute Code(s): TQC6275 - SNOMED Code(s): 015318334 (2) Colonic stricture Current Visit: No Status: Acute Code(s): K56.699 - OTHER INTESTNL OBST UNSP TO PARTIAL VERSUS COMPLETE OBST SNOMED Code(s): 3746345 (3) Crohn's colitis Current Visit: No Status: Acute Code(s): K50.10 - CROHN'S DISEASE OF LARGE INTESTINE WITHOUT COMPLICATIONS SNOMED Code(s): 88403272 (4) Diabetes Current Visit: No Status: Acute Code(s): E11.9 - TYPE 2 DIABETES MELLITUS WITHOUT COMPLICATIONS SNOMED Code(s): 48566941 Plan: Recommend he increase his activity and continue to use the incentive spirometry. We will give him some small amounts of clear liquids. If he is able to tolerate that, he can have a clear liquid tray this evening. He is awaiting a telemetry bed. We will continue ostomy education. Questions were encouraged and answered.
[2020-06-25 18:27] LABS: Glucose,Whole Blood 153 mg/dL (75-99)
[2020-06-25 20:49] LABS: Glucose,Whole Blood 150 mg/dL (75-99)
--- NOTE | 2020-06-25 21:56 | P.PN ---
Subjective this is a pleasant 69 years old male with past medical history of asthma, CVA/TIA, diabetes mellitus, hearing disorder, hyperlipidemia, hypertension, chronic back pain, Crohn's disease and he is steroid dependent. He was admitted by surgical service for colonic stricture secondary to his Crohn's disease, he underwent subtotal colectomy and ileostomy formation. Postoperatively he was slightly hypotensive, continue to stress dose of hydrocortisone with albumin and his blood pressure is currently stable and patient is fully awake and oriented with no dizziness or other complaints. He has expected pain at the surgical site Labs reviewed and he has coarse cytosis of 30 1K upon is on steroids, sugar is elevated also due to the steroid effect. Also he is on D5 half normal saline 06/24/2020 Patient is doing fine, no specific complaint and no chest pain or dyspnea, NG tube is in place but probably it will be discontinued today by surgery team No bowel movement yet. Abdomen soft and pain is controlled. Patient still nothing by mouth except for ice chips. Vitals and labs are reviewed and the looks stable. Chest x-ray: Reviewed by myself showing atelectasis he remains on hydrocortisone, stress dose 06/25/20 Patient is resting comfortably in bed, denies any chest pain or dyspnea. His NG tube has been taken out and a started on liquid diet and he tolerates that well so far, abdominal pain is controlled He started having bowel movements, But little amounts. Leukocytosis improvement, hemoglobin is with slightly dropped from 10.5 down to 9.6 Objective - Vital Signs Vital signs: Vital Signs Temp 98.5 F 06/25/20 15:40 Pulse 95 06/25/20 15:40 Resp 22 06/25/20 16:00 BP 147/89 06/25/20 15:40 Pulse Ox 95 06/25/20 15:40 Intake & Output 06/25/20 06/25/20 06/26/20 06:59 18:59 06:59 Intake Total 1600 1075 Output Total 900 630 Balance 700 445 Intake: IV 1600 875 Lactated Ringers @ 100 1600 875 mls/hr Oral 200 Output: Urine 900 600 Urine/Stool Mix 30 Other: Voiding Method Urinal Urinal # Voids 1 - Exam GENERAL: The patient is alert and oriented x3, not in any acute distress. Well developed, well nourished. HEENT: Pupils are round and equally reacting to light. EOMI. No scleral icterus. No conjunctival pallor. Normocephalic, atraumatic. No pharyngeal erythema. No thyromegaly. CARDIOVASCULAR: S1 and S2 present. No murmurs, rubs, or gallops. PULMONARY: Chest is clear to auscultation, no wheezing or crackles. -ABDOMEN: Soft, nontender, nondistended, normoactive bowel sounds. No palpable organomegaly. abdominal incision with a dressing. MUSCULOSKELETAL: No joint swelling or deformity. EXTREMITIES: No cyanosis, clubbing, or pedal edema. NEUROLOGICAL: Gross neurological examination did not reveal any focal deficits. SKIN: No rashes. No petechiae - Labs CBC & Chem 7: 06/25/20 05:22 06/25/20 05:22 Labs: Abnormal Lab Results - Last 24 Hours (Table) 06/24/20 06/25/20 06/25/20 Range/Units 21:43 05:22 05:22 WBC 16.0 H (3.8-10.6) k/uL RBC 3.10 L (4.30-5.90) m/uL Hgb 9.6 L (13.0-17.5) gm/dL Hct 30.3 L (39.0-53.0) % Plt Count 149 L (150-450) k/uL Neutrophils # 14.5 H (1.3-7.7) k/uL Lymphocytes # 0.6 L (1.0-4.8) k/uL BUN 26 H (9-20) mg/dL Glucose 176 H (74-99) mg/dL POC Glucose (mg/dL) 210 H (75-99) mg/dL Calcium 8.3 L (8.4-10.2) mg/dL 06/25/20 06/25/20 06/25/20 Range/Units 06:29 12:13 16:57 WBC (3.8-10.6) k/uL RBC (4.30-5.90) m/uL Hgb (13.0-17.5) gm/dL Hct (39.0-53.0) % Plt Count (150-450) k/uL Neutrophils # (1.3-7.7) k/uL Lymphocytes # (1.0-4.8) k/uL BUN (9-20) mg/dL Glucose (74-99) mg/dL POC Glucose (mg/dL) 175 H 183 H 172 H (75-99) mg/dL Calcium (8.4-10.2) mg/dL 06/25/20 Range/Units 18:24 WBC (3.8-10.6) k/uL RBC (4.30-5.90) m/uL Hgb (13.0-17.5) gm/dL Hct (39.0-53.0) % Plt Count (150-450) k/uL Neutrophils # (1.3-7.7) k/uL Lymphocytes # (1.0-4.8) k/uL BUN (9-20) mg/dL Glucose (74-99) mg/dL POC Glucose (mg/dL) 153 H (75-99) mg/dL Calcium (8.4-10.2) mg/dL Assessment and Plan Assessment: Colonic stricture secondary to Crohn's disease status post subtotal colectomy and ileostomy formation Most likely acute blood loss anemia secondary to surgery Hyperlipidemia Hypertension Transient hypotensive, improved with fluids and steroids History of CVA/TIA with some residual blood test Hearing difficulty Chronic back pain Leukocytosis secondary to steroid effect and reactive from surgery Plan: This is a pleasant 69 years old male who presents for colonic stricture status post subtotal colectomy. Continue with hydrocortisone 100 mg 3 times a day. Monitor sugars and continue with insulin sliding scale.keep monitoring hemoglobin, start the patient on are pulse Labs and medication were reviewed.. Continue same treatment. Continue with symptomatic treatment. Resume home medication. Monitor lytes and vitals. DVT and GI prophylaxis. Further recommendations of the clinical course of the patient DVT prophylaxis: Subcutaneous heparin GI Prophylaxis: Ppi Prognosis is guarded
[2020-06-26 05:07] LABS: Basophils % (A) 0 %; Eosinophils # (A) 0.1 k/uL (0-0.7); Eosinophils % (A) 0 %; HCT 29.6 % (39.0-53.0); HGB 9.6 gm/dL (13.0-17.5); Lymphocytes # (A) 1.1 k/uL (1.0-4.8); Lymphocytes % (A) 7 %; MCH 31.3 pg (25.0-35.0); MCHC 32.5 g/dL (31.0-37.0); MCV 96.5 fL (80.0-100.0); Mean Platelet Volume 7.7; Monocytes # (A) 0.9 k/uL (0-1.0); Monocytes % (A) 7 %; Neutrophils # (A) 12.4 k/uL (1.3-7.7); Neutrophils % (A) 85 %; Platelet Count 161 k/uL (150-450); RBC 3.07 m/uL (4.30-5.90); WBC 14.6 k/uL (3.8-10.6)
[2020-06-26 05:18] LABS: African American GFR (CKD) >90 (>60 ml/min/1.73 sqM); Anion Gap 1 mmol/L; Blood Urea Nitrogen 21 mg/dL (9-20); Calcium 8.1 mg/dL (8.4-10.2); Carbon Dioxide 33 mmol/L (22-30); Chloride 103 mmol/L (98-107); Glucose 132 mg/dL (74-99); Non-African American GFR(CKD) >90 (>60 ml/min/1.73 sqM); Potassium 3.3 mmol/L (3.5-5.1); Sodium 137 mmol/L (137-145)
[2020-06-26 07:14] LABS: Glucose,Whole Blood 128 mg/dL (75-99)
[2020-06-26] MEDS: HYDROCORTISONE SUCCINATE 100 MG/2 ML VIAL IV SCH ×4 (08:03→23:31)
[2020-06-26] MEDS: HEPARIN SODIUM,PORCINE 5,000 UNIT/ML 1 ML VIAL SQ SCH ×4 (08:03→23:31)
[2020-06-26] MEDS: KETOROLAC 15 MG/ML 1 ML VIAL IVP SCH ×4 (08:03→20:49)
[2020-06-26] MEDS: SYMBICORT 160-4.5 MCG INHALER INHALATION PRN (08:04)
[2020-06-26] MEDS: INSULIN ASPART (NovoLOG) 100 UNIT/ML VIAL SQ SCH ×4 (08:30→20:49)
[2020-06-26] MEDS ORDERED: Potassium Replacement Protocol 1 EACH MISC MISCELLANE PRN (09:25)
--- NOTE | 2020-06-26 10:08 | P.PN ---
Subjective Progress Note Date: 06/26/20 Principal diagnosis: Colonic stricture, secondary to Crohn's disease, status post subtotal colectomy and ileostomy formation 69-year-old white male patient who was admitted to the hospital on 06/22/2024 subtotal colectomy and ileostomy formation for history of colonic stricture secondary to Crohn's disease, and experienced hypotension in the postoperative period and was transferred to the intensive care unit, where he was fluid resuscitated, patient require stress doses of IV hydrocortisone, and currently blood pressure is stable. Patient is awake and alert, in no acute distress, his oriented 3, more awake on today's exam done yesterday, REHABILITATION PROGRAM COORDINATOR was discontinued, his pain is reasonably controlled, he is pulling 1000 mL on this incentive spirometer. Today is postoperative day #2 status post open subtotal colectomy and ileostomy. Patient is doing well, she is on 2 L of oxygen, denies any drugs of breath, his pulse ox is 93%, he is in sinus mechanism with a rate of 99 BPM, IV fluids of lactated Ringer's at a rate of 100 mL, no other drips. NG tube is in place, and there has only been 50 mL of output in last 24 hours. Lung sounds are clear, diminished at the bases, no wheezes, today's chest x-ray has been reviewed showing subsegmental basilar atelectatic changes. There is volume loss in the right hemithorax and elevation of right hemidiaphragm. Patient needs encouragement on deep breathing and coughing and incentive spirometry use. He remains on stress doses of IV hydrocortisone at 100 mg IV every 8 hours, he is on intermittent doses of Dilaudid for pain control, he is on Reglan, abdomen is soft, there is postsurgical tenderness, but no acute distress. He is on GI and DVT prophylaxis. His been nothing by mouth except for ice chips and popsicles. On 06/25/2020 patient seen in follow-up in intensive care unit, he is awake and alert, he is currently on 2 L of oxygen pulse ox of 93%, denies any shortness of breath, he is working on the incentive spirometer. Occasional cough, no phlegm production, lung sounds are diminished, with some basilar crackles at posterior bases. Patient requires a lot of encouragement to do deep breathing and coug oleksandr, IV fluids lactated Ringer's at a rate of 75 ML per hour, no other drips. Hemodynamically patient is stable. Today's chest x-ray shows atelectasis of the lung bases stable from yesterday's exam. Patient is tolerating ice chips, and popsicles. Ileostomy is pink, no stool or gas seen in the bag. Diminished soft, no postsurgical tenderness, no guarding. No nausea or vomiting. She is doing well, today's labs have been reviewed, no inguinal blood cell count trending down, down to 16 on today's labs, hemoglobin is 9.6, electrolytes are within normal limits, BUN at 26 creatinine 0.8 On 06/26/2020 patient seen in follow-up in the intensive care unit. Today's postoperative day #4, status exploratory laparotomy which was, converted to open procedure, total colectomy with ileostomy. Patient is doing well, he is on supplemental oxygen, still at 3 L a pulse ox of 95%, hemodynamically patient is stable, as been working on incentive spirometer, he was up in the chair yesterday with physical therapy, tolerated activity well, still very generally weak. Midabdominal incision is clean dry and intact. Patient remains nothing by mouth except for ice chips. He is at abdominal incision and ileostomy are clean dry and intact, no output in the ileostomy He is on lactated Ringer's at a rate of 75 ML per hour, surgical services are following. Soft, no nausea vomiting or diarrhea. His labs have been reviewed, showing white blood cell count of 14.6, hemoglobin of 9.6, sodium is 137, potassium is 3.3, chloride is 103, CO2 33, B1 is 21 creatinine 0.75. Yesterday's chest x-ray shows a telectasis at the lung bases. Lung sounds revealed diminished breath sounds at the bases, patient remains on nebulized bronchodilators, no acute events overnight, his been awaiting a bed on general medical floor with telemetry Objective - Vital Signs Vital signs: Vital Signs Temp 98.2 F 06/25/20 22:00 Pulse 74 06/25/20 22:00 Resp 20 06/25/20 22:00 BP 141/92 06/25/20 22:00 Pulse Ox 95 06/25/20 15:40 Intake & Output 06/25/20 06/26/20 06/26/20 18:59 06:59 18:59 Intake Total 1075 1000 Output Total 630 745 Balance 445 255 Intake: IV 875 600 Lactated Ringers @ 100 875 600 mls/hr Oral 200 400 Output: Urine 600 745 Urine/Stool Mix 30 Other: Voiding Method Urinal Urinal # Voids 1 - Exam GENERAL EXAM: Alert, very pleasant, 69-year-old white male on 3 L of oxygen with a pulse ox of 95%, resting comfortably in bed HEAD: Normocephalic/atraumatic. EYES: Normal reaction of pupils, equal size. Conjunctiva pink, sclera white. NOSE: Clear with pink turbinates. THROAT: No erythema or exudates. NECK: No masses, no JVD, no thyroid enlargement, no adenopathy. CHEST: No chest wall deformity. Symmetrical expansion. LUNGS: Equal air entry with no crackles, wheeze, rhonchi or dullness. CVS: Regular rate and rhythm, normal S1 and S2, no gallops, no murmurs, no rubs ABDOMEN: Soft, nontender. No hepatosplenomegaly, normal bowel sounds, no guarding or rigidity. Ileostomy in place, in the right lower quadrant, pink and viable, with no output. Abdominal incision covered with a surgical dressing, clean dry and intact EXTREMITIES: No clubbing, no edema, no cyanosis, 2+ pulses and upper and lower extremities. MUSCULOSKELETAL: Muscle strength and tone normal. SPINE: No scoliosis or deformity SKIN: No rashes CENTRAL NERVOUS SYSTEM: Alert and oriented -3. No focal deficits, tone is normal in all 4 extremities. PSYCHIATRIC: Alert and oriented -3. Appropriate affect. Intact judgment and insight. - Labs CBC & Chem 7: 06/26/20 04:20 06/26/20 04:20 Labs: Abnormal Lab Results - Last 24 Hours (Table) 06/25/20 06/25/20 06/25/20 Range/Units 12:13 16:57 18:24 WBC (3.8-10.6) k/uL RBC (4.30-5.90) m/uL Hgb (13.0-17.5) gm/dL Hct (39.0-53.0) % Neutrophils # (1.3-7.7) k/uL Potassium (3.5-5.1) mmol/L Carbon Dioxide (22-30) mmol/L BUN (9-20) mg/dL Glucose (74-99) mg/dL POC Glucose (mg/dL) 183 H 172 H 153 H (75-99) mg/dL Calcium (8.4-10.2) mg/dL 06/25/20 06/26/20 06/26/20 Range/Units 20:48 04:20 04:20 WBC 14.6 H (3.8-10.6) k/uL RBC 3.07 L (4.30-5.90) m/uL Hgb 9.6 L (13.0-17.5) gm/dL Hct 29.6 L (39.0-53.0) % Neutrophils # 12.4 H (1.3-7.7) k/uL Potassium 3.3 L (3.5-5.1) mmol/L Carbon Dioxide 33 H (22-30) mmol/L BUN 21 H (9-20) mg/dL Glucose 132 H (74-99) mg/dL POC Glucose (mg/dL) 150 H (75-99) mg/dL Calcium 8.1 L (8.4-10.2) mg/dL 06/26/20 Range/Units 07:13 WBC (3.8-10.6) k/uL RBC (4.30-5.90) m/uL Hgb (13.0-17.5) gm/dL Hct (39.0-53.0) % Neutrophils # (1.3-7.7) k/uL Potassium (3.5-5.1) mmol/L Carbon Dioxide (22-30) mmol/L BUN (9-20) mg/dL Glucose (74-99) mg/dL POC Glucose (mg/dL) 128 H (75-99) mg/dL Calcium (8.4-10.2) mg/dL Assessment and Plan Plan: Assessment: #1. Colonic stricture secondary to Crohn's colitis, status post exploratory laparotomy, which was converted to open procedure, total colectomy with ileostomy, postoperative day #4 #2. Postoperative hypotension, recovered with stress doses of IV hydrocortisone, and fluid resuscitation #3. History of long-standing inflammatory bowel disease, Crohn's colitis with s trictures #4. Chronic use of steroids for history of Crohn's colitis, on stress doses of hydrocortisone #5. Leukocytosis, possibly reactive, and possibly related to steroid use, improving #6. Acute hypoxic respiratory failure related to postoperative atelectasis, expected outcome of the surgical procedure #7. History of CVA/TIA #8. Diabetes mellitus type 2 #9. Hypertension #10. Hyperlipidemia #11. History of Rjqwj-Qzzkpgczd-Jsiom syndrome #12. Chronic back pain #13. History of MRSA infection #14. History of COPD Plan: Obtain encouraging deep breathing and coughing, no new chest x-ray today, wean FiO2. Continue nebulized bronchodilators. Maintain pain control, physical therapy consultation, encourage the patient to sit up in the chair, mobilize the patient. Remained hemodynamically stable overnight, dietary recommendations per surgery. No acute issues overnight, patient is awaiting a bed on general medical floor with telemetry. I performed a history & physical examination of the patient and discussed their management with my nurse practitioner, Cynthia Naranjo. I reviewed the nurse practitioner's note and agree with the documented findings and plan of care. Lung sounds are positive for binge breath sounds. The findings and the impression was discussed with the patient. I attest to the documentation by the nurse practitioner. Time with Patient: Less than 30
[2020-06-26] MEDS: FERROUS SULFATE 325 MG TAB PO SCH ×2 (10:10→17:37)
[2020-06-26] MEDS: carvediloL 3.125 MG TAB PO SCH ×2 (10:11→20:49)
[2020-06-26] MEDS: FINASTERIDE 5 MG TAB PO SCH (10:12)
[2020-06-26] MEDS: PANTOPRAZOLE 40 MG/10 ML VIAL IV SCH (10:12)
[2020-06-26] MEDS: MONTELUKAST 10 MG TAB PO SCH (10:13)
[2020-06-26] MEDS: POTASSIUM CHLORIDE ER 20 MEQ TAB.ER PO SCH ×2 (10:13→12:17)
[2020-06-26] MEDS: lisinopriL 10 MG TAB PO SCH (10:13)
[2020-06-26 12:04] LABS: Glucose,Whole Blood 137 mg/dL (75-99)
--- NOTE | 2020-06-26 13:02 | P.PN ---
Subjective Progress Note Date: 06/26/20 Principal diagnosis: Status post subtotal colectomy with ileostomy The patient is seen on rounds. Mild pain. Breathing is a little improved. Still doing about 1000 amounts on his incentive spirometry. He's passed some flatus from the ostomy appliance today. Taking small amounts of clear liquids, still does not have much appetite Objective - Vital Signs Vital signs: Vital Signs Temp 98.2 F 06/25/20 22:00 Pulse 74 06/25/20 22:00 Resp 20 06/25/20 22:00 BP 141/92 06/25/20 22:00 Pulse Ox 95 06/25/20 15:40 Intake & Output 06/25/20 06/26/20 06/26/20 18:59 06:59 18:59 Intake Total 1075 1000 Output Total 630 745 Balance 445 255 Intake: IV 875 600 Lactated Ringers @ 100 875 600 mls/hr Oral 200 400 Output: Urine 600 745 Urine/Stool Mix 30 Other: Voiding Method Urinal Urinal # Voids 1 - Constitutional General appearance: Present: cooperative, no acute distress - Respiratory Respiratory: bilateral: CTA, diminished (At the bases) - Cardiovascular Rhythm: regular - Gastrointestinal General gastrointestinal: Present: decreased bowel sounds, soft Localized gastrointestinal: surgical scar: diffuse (Ostomy pink and viable, incision intact clean and dry) - Labs CBC & Chem 7: 06/26/20 04:20 06/26/20 04:20 Labs: Abnormal Lab Results - Last 24 Hours (Table) 06/25/20 06/25/20 06/25/20 Range/Units 16:57 18:24 20:48 WBC (3.8-10.6) k/uL RBC (4.30-5.90) m/uL Hgb (13.0-17.5) gm/dL Hct (39.0-53.0) % Neutrophils # (1.3-7.7) k/uL Potassium (3.5-5.1) mmol/L Carbon Dioxide (22-30) mmol/L BUN (9-20) mg/dL Glucose (74-99) mg/dL POC Glucose (mg/dL) 172 H 153 H 150 H (75-99) mg/dL Calcium (8.4-10.2) mg/dL 06/26/20 06/26/20 06/26/20 Range/Units 04:20 04:20 07:13 WBC 14.6 H (3.8-10.6) k/uL RBC 3.07 L (4.30-5.90) m/uL Hgb 9.6 L (13.0-17.5) gm/dL Hct 29.6 L (39.0-53.0) % Neutrophils # 12.4 H (1.3-7.7) k/uL Potassium 3.3 L (3.5-5.1) mmol/L Carbon Dioxide 33 H (22-30) mmol/L BUN 21 H (9-20) mg/dL Glucose 132 H (74-99) mg/dL POC Glucose (mg/dL) 128 H (75-99) mg/dL Calcium 8.1 L (8.4-10.2) mg/dL 06/26/20 Range/Units 12:02 WBC (3.8-10.6) k/uL RBC (4.30-5.90) m/uL Hgb (13.0-17.5) gm/dL Hct (39.0-53.0) % Neutrophils # (1.3-7.7) k/uL Potassium (3.5-5.1) mmol/L Carbon Dioxide (22-30) mmol/L BUN (9-20) mg/dL Glucose (74-99) mg/dL POC Glucose (mg/dL) 137 H (75-99) mg/dL Calcium (8.4-10.2) mg/dL Assessment and Plan (1) Chronic steroid use Current Visit: No Status: Acute Code(s): CBD9117 - SNOMED Code(s): 889786821 (2) Colonic stricture Current Visit: No Status: Acute Code(s): K56.699 - OTHER INTESTNL OBST UNSP TO PARTIAL VERSUS COMPLETE OBST SNOMED Code(s): 2810329 (3) Crohn's colitis Current Visit: No Status: Acute Code(s): K50.10 - CROHN'S DISEASE OF LARGE INTESTINE WITHOUT COMPLICATIONS SNOMED Code(s): 86226418 (4) Diabetes Current Visit: No Status: Acute Code(s): E11.9 - TYPE 2 DIABETES MELLITUS WITHOUT COMPLICATIONS SNOMED Code(s): 99835290 Plan: The patient is progressing well surgically. The diet will be slowly advanced. We discussed his expected postoperative course over the next few days, including diet and monitoring ostomy output. Whether he goes home or to rehab will depend how he is progressing with strength and so forth. Questions were encouraged and answered. Dr. Mejia will cover the patient in my absence
[2020-06-26 13:23] VITALS: BMI 30.7
--- NOTE | 2020-06-26 15:20 | CDI ---
Documentation Clarification Form Date: 06/26/2020 02:54:37 PM From: Esperanza Lopez RN, CCDS Admit Date: 06/22/2020 10:16:00 AM Patient Name: Newton Betancourt Visit Number: [id number] Discharge Date: ATTENTION: The Clinical Documentation Specialists (CDI) and [facility] Coding Staff appreciate your assistance in clarifying documentation. Please respond to the clarification below the line at the bottom and electronically sign. The CDI & [facility] Coding staff will review the response and follow-up if needed. Please note: Queries are made part of the Legal Health Record. If you have any questions, please contact the author of this message via ITS. Dr. Park E Sheet 06/25 progress note has most likely acute blood loss anemia secondary to surgery Please provide additional clarification for the acute blood loss anemia. Patients Admitting Diagnosis: Chron's disease with colonic structure and indeterminate for dysplasia. Post-Operative Diagnosis: Same Procedure performed: Rigid Sigmoidoscopy with tattooing, diagnostic laposcopy, subtotal colectomy with ileostomy formation History/Risk Factors: Crohn's colitis, Chronic use of steroids, Diabetes Mellitus type 2, Hypertension , History of Qurqc-Eepcfumkc-Gjzbf syndrome , CVA, TIA Clinical Indicators: 69-year-old male who was admitted on 06/22 for subtotal colectomy and ileostomy formation. 06/25 Vital signs@ 07:00 160/104 91 19 98.4 06/23 HGB 12.3, HCT 38.8 06/24 HGB 10.5, HCT 33.4 06/25 HGB 9.6, HCT 30.3 Treatment: ICU/Telemetry monitoring Monitor CBC, Daily Albumin Human 5 % 500 ml ivpb 06/22 Lactated Ringer's @ 100 mls/hr IV Solu-Cortef 50 mg iv q 8 hrs In order to accurately reflect this patients severity of illness, please clarify if the acute blood loss anemia secondary to surgery: -is a complication of surgical procedure -is an expected outcome of the surgical procedure -is related to co-morbid condition(s) of -Other please specify -Unable to determine (Last Revision: October 2019) Unable to determine, refer to milton ANTHONY
[2020-06-26] MEDS: LACTATED RINGERS 1,000 ML IV SCH ×2 (16:27→17:11)
[2020-06-26 16:56] LABS: Glucose,Whole Blood 161 mg/dL (75-99)
[2020-06-26 20:42] LABS: Glucose,Whole Blood 194 mg/dL (75-99)
[2020-06-26] MEDS ORDERED: POTASSIUM CHLORIDE ER 20 MEQ TAB.ER PO SCH (21:00)
[2020-06-27] MEDS: KETOROLAC 15 MG/ML 1 ML VIAL IVP SCH (02:17)
[2020-06-27 03:54] LABS: HCT 31.1 % (39.0-53.0); MCH 31.5 pg (25.0-35.0); MCHC 32.3 g/dL (31.0-37.0); MCV 97.4 fL (80.0-100.0); Mean Platelet Volume 7.9; Platelet Count 184 k/uL (150-450); RBC 3.19 m/uL (4.30-5.90); RDW 14.3 % (11.5-15.5); WBC 16.7 k/uL (3.8-10.6)
[2020-06-27 04:16] LABS: African American GFR (CKD) >90 (>60 ml/min/1.73 sqM); Anion Gap 3 mmol/L; Blood Urea Nitrogen 23 mg/dL (9-20); Carbon Dioxide 28 mmol/L (22-30); Chloride 103 mmol/L (98-107); Glucose 178 mg/dL (74-99); Non-African American GFR(CKD) >90 (>60 ml/min/1.73 sqM); Phosphorus 3.4 mg/dL (2.5-4.5); Potassium 3.8 mmol/L (3.5-5.1); Sodium 134 mmol/L (137-145)
[2020-06-27 06:58] LABS: Glucose,Whole Blood 189 mg/dL (75-99)
[2020-06-27] MEDS: FERROUS SULFATE 325 MG TAB PO SCH ×2 (07:28→17:18)
[2020-06-27] MEDS: INSULIN ASPART (NovoLOG) 100 UNIT/ML VIAL SQ SCH ×4 (07:30→20:24)
[2020-06-27] MEDS ORDERED: POTASSIUM CHLORIDE ER 20 MEQ TAB.ER PO SCH (08:00)
[2020-06-27] MEDS: HEPARIN SODIUM,PORCINE 5,000 UNIT/ML 1 ML VIAL SQ SCH ×3 (08:49→23:22)
[2020-06-27] MEDS: PANTOPRAZOLE 40 MG/10 ML VIAL IV SCH (08:51)
[2020-06-27] MEDS: HYDROCORTISONE SUCCINATE 100 MG/2 ML VIAL IV SCH (08:51)
[2020-06-27] MEDS: carvediloL 3.125 MG TAB PO SCH ×2 (08:52→20:24)
[2020-06-27] MEDS: FINASTERIDE 5 MG TAB PO SCH (08:52)
[2020-06-27] MEDS: MONTELUKAST 10 MG TAB PO SCH (08:52)
[2020-06-27] MEDS: lisinopriL 10 MG TAB PO SCH (08:52)
[2020-06-27] MEDS: LACTATED RINGERS 1,000 ML IV SCH ×2 (08:53→15:58)
[2020-06-27] MEDS: SYMBICORT 160-4.5 MCG INHALER INHALATION PRN ×2 (08:56→20:58)
[2020-06-27] MEDS ORDERED: HYDROcodone/APAP 5-325MG 1 EACH TAB PO PRN (09:48)
[2020-06-27] MEDS ORDERED: SIMETHICONE 40 MG/0.6 ML DROPS 2,000 MG/30 ML BOTTLE PO PRN (09:48)
--- NOTE | 2020-06-27 09:52 | P.PN ---
Subjective Progress Note Date: 06/27/20 Patient seen and examined at bedside. Complains of some mild incisional pain. Denies nausea or vomiting. Tolerating diet. Only gas in the ostomy bag at this time. Objective - Vital Signs Vital signs: Vital Signs Temp 98.5 F 06/26/20 23:00 Pulse 88 06/26/20 23:00 Resp 18 06/26/20 23:00 BP 137/72 06/26/20 23:00 Pulse Ox 94 L 06/26/20 23:00 Intake & Output 06/26/20 06/27/20 06/27/20 18:59 06:59 18:59 Intake Total 1750 1150 225 Output Total 1300 400 200 Balance 450 750 25 Weight 99.9 kg Intake: IV 750 750 225 Lactated Ringers 1,000 ml 750 750 225 @ 75 mls/hr IV .[id number] [facility] Rx#:[id number] Oral 1000 400 Output: Urine 1300 400 200 Other: Voiding Method Urinal Urinal - Constitutional General appearance: Present: cooperative, no acute distress - Respiratory Details: no difficulty with respiration - Gastrointestinal Gastrointestinal Comment(s): Soft, appropriate tenderness, midline incision clean, dry and intact, nondistended, ostomy is pink and patent with only gas in ostomy bag - Musculoskeletal Musculoskeletal: Present: generalized weakness - Psychiatric Psychiatric: Present: A&O x's 3 - Labs CBC & Chem 7: 06/27/20 03:37 06/27/20 03:37 Labs: Abnormal Lab Results - Last 24 Hours (Table) 06/26/20 06/26/20 06/26/20 Range/Units 12:02 16:55 20:40 WBC (3.8-10.6) k/uL RBC (4.30-5.90) m/uL Hgb (13.0-17.5) gm/dL Hct (39.0-53.0) % Sodium (137-145) mmol/L BUN (9-20) mg/dL Glucose (74-99) mg/dL POC Glucose (mg/dL) 137 H 161 H 194 H (75-99) mg/dL Calcium (8.4-10.2) mg/dL 06/27/20 06/27/20 06/27/20 Range/Units 03:37 03:37 06:56 WBC 16.7 H (3.8-10.6) k/uL RBC 3.19 L (4.30-5.90) m/uL Hgb 10.0 L (13.0-17.5) gm/dL Hct 31.1 L (39.0-53.0) % Sodium 134 L (137-145) mmol/L BUN 23 H (9-20) mg/dL Glucose 178 H (74-99) mg/dL POC Glucose (mg/dL) 189 H (75-99) mg/dL Calcium 8.0 L (8.4-10.2) mg/dL Assessment and Plan Plan: 69-year-old male, postoperative day #5 subtotal colectomy Continue to increase activity, patient is working with physical therapy Continue pain control Continue incentive spirometry Await further bowel function Continue full liquid diet Progressing slowly Medical recommendations appreciated
--- NOTE | 2020-06-27 11:17 | P.PN ---
Subjective Progress Note Date: 06/26/20 Principal diagnosis: Colonic stricture, secondary to Crohn's disease, status post subtotal colectomy and ileostomy formation 69-year-old white male patient who was admitted to the hospital on 06/22/2024 subtotal colectomy and ileostomy formation for history of colonic stricture secondary to Crohn's disease, and experienced hypotension in the postoperative period and was transferred to the intensive care unit, where he was fluid resuscitated, patient require stress doses of IV hydrocortisone 06/26/2020 patient seen and evaluated for follow-up in ICU; POD #4, status exploratory laparotomy which was, converted to open procedure, total colectomy with ileostomy. Patient remained stable, he is on supplemental oxygen at 3 L a pulse ox of 95%, hemodynamically patient is stable, as been working on incentive spirometer Midabdominal incision is clean dry and intact. Patient remains nothing by mouth except for ice chips. He is at abdominal incision and ileostomy are clean dry and intact, no output in the ileostomy He is on lactated Ringer's at a rate of 75 ML per hour, surgical services are following. Soft, no nausea vomiting or diarrhea. His labs have been reviewed, showing white blood cell count of 14.6, hemoglobin of 9.6, sodium is 137, potassium is 3.3, chloride is 103, CO2 33, B1 is 21 creatinine 0.75. Yesterday's chest x-ray shows atelectasis at the lung bases. Lung sounds revealed diminished breath sounds at the bases, patient remains on nebulized bronchodilators, no acute events overnight, his been awaiting a bed on general medical floor with telemetry Objective - Vital Signs Vital signs: Vital Signs Temp 98.2 F 06/25/20 22:00 Pulse 74 06/25/20 22:00 Resp 20 06/25/20 22:00 BP 141/92 06/25/20 22:00 Pulse Ox 95 06/25/20 15:40 Intake & Output 06/25/20 06/26/20 06/26/20 18:59 06:59 18:59 Intake Total 1075 1000 Output Total 630 745 Balance 445 255 Weight 99.9 kg Intake: IV 875 600 Lactated Ringers @ 100 875 600 mls/hr Oral 200 400 Output: Urine 600 745 Urine/Stool Mix 30 Other: Voiding Method Urinal Urinal # Voids 1 - Exam GENERAL EXAM: Alert, very pleasant, 69-year-old white male on 3 L of oxygen with a pulse ox of 95%, resting comfortably in bed HEAD: Normocephalic/atraumatic. EYES: Normal reaction of pupils, equal size. Conjunctiva pink, sclera white. NOSE: Clear with pink turbinates. THROAT: No erythema or exudates. NECK: No masses, no JVD, no thyroid enlargement, no adenopathy. CHEST: No chest wall deformity. Symmetrical expansion. LUNGS: Equal air entry with no crackles, wheeze, rhonchi or dullness. CVS: Regular rate and rhythm, normal S1 and S2, no gallops, no murmurs, no rubs ABDOMEN: Soft, nontender. No hepatosplenomegaly, normal bowel sounds, no guarding or rigidity. Ileostomy in place, in the right lower quadrant, pink and viable, with no output. Abdominal incision covered with a surgical dressing, clean dry and intact EXTREMITIES: No clubbing, no edema, no cyanosis, 2+ pulses and upper and lower extremities. - Labs CBC & Chem 7: 06/27/20 03:37 06/27/20 03:37 Labs: Abnormal Lab Results - Last 24 Hours (Table) 06/25/20 06/25/20 06/25/20 Range/Units 16:57 18:24 20:48 WBC (3.8-10.6) k/uL RBC (4.30-5.90) m/uL Hgb (13.0-17.5) gm/dL Hct (39.0-53.0) % Neutrophils # (1.3-7.7) k/uL Potassium (3.5-5.1) mmol/L Carbon Dioxide (22-30) mmol/L BUN (9-20) mg/dL Glucose (74-99) mg/dL POC Glucose (mg/dL) 172 H 153 H 150 H (75-99) mg/dL Calcium (8.4-10.2) mg/dL 06/26/20 06/26/20 06/26/20 Range/Units 04:20 04:20 07:13 WBC 14.6 H (3.8-10.6) k/uL RBC 3.07 L (4.30-5.90) m/uL Hgb 9.6 L (13.0-17.5) gm/dL Hct 29.6 L (39.0-53.0) % Neutrophils # 12.4 H (1.3-7.7) k/uL Potassium 3.3 L (3.5-5.1) mmol/L Carbon Dioxide 33 H (22-30) mmol/L BUN 21 H (9-20) mg/dL Glucose 132 H (74-99) mg/dL POC Glucose (mg/dL) 128 H (75-99) mg/dL Calcium 8.1 L (8.4-10.2) mg/dL 06/26/20 Range/Units 12:02 WBC (3.8-10.6) k/uL RBC (4.30-5.90) m/uL Hgb (13.0-17.5) gm/dL Hct (39.0-53.0) % Neutrophils # (1.3-7.7) k/uL Potassium (3.5-5.1) mmol/L Carbon Dioxide (22-30) mmol/L BUN (9-20) mg/dL Glucose (74-99) mg/dL POC Glucose (mg/dL) 137 H (75-99) mg/dL Calcium (8.4-10.2) mg/dL Assessment and Plan Assessment: Colonic stricture secondary to Crohn's disease status post subtotal colectomy and ileostomy formation Most likely acute blood loss anemia secondary to surgery Hyperlipidemia Hypertension Transient hypotensive, improved with fluids and steroids History of CVA/TIA with some residual blood test Hearing difficulty Chronic back pain Leukocytosis secondary to steroid effect and reactive from surgery Plan: 69 years old male who presents for colonic stricture status post subtotal colectomy. Continue with hydrocortisone 100 mg 3 times a day. Monitor sugars and continue with insulin sliding scale.keep monitoring hemoglobin, start the patient on are pulse Labs and medication were reviewed.. Continue same treatment. Continue with symptomatic treatment. Resume home medication. Monitor lytes and vitals. DVT and GI prophylaxis. Further recommendations of the clinical course of the patient DVT prophylaxis: Subcutaneous heparin GI Prophylaxis: Ppi Prognosis is guarded
--- NOTE | 2020-06-27 11:23 | PN ---
PROGRESS NOTE PULMONARY/CRITICAL CARE PROGRESS NOTE: DATE OF SERVICE: 06/27/2020 This is a patient who is 69 years of age. He is postop day #5 status post exploratory laparotomy, total colectomy and ileostomy for severe Crohn's colitis with strictures. Currently, the patient is doing relatively well. He is actually a patient that is an overflow patient here in the ICU. He can go to the general medical floor without telemetry. The patient is currently not receiving any supplemental oxygen. He is receiving lactated Ringer's at 75 mL an hour. Other than that, the patient is doing reasonably well. He does have a history of postoperative hypotension which is resolved, long-standing inflammatory bowel disease/Crohn's colitis with strictures, chronic steroid use, and a history of CVA, diabetes, hypertension, hyperlipidemia, among other things. PHYSICAL EXAMINATION: VITAL SIGNS: Current vital signs include temperature 98.5, heart rate 88, respiratory rate 18, blood pressure 137/72, mean 93, 2 L saturation 94%. Appears in no acute distress. HEENT: Examination is grossly unremarkable. NECK: Supple. Full range of motion. No adenopathy. Neck veins are flat. CARDIOVASCULAR: Examination reveals regular rhythm and rate. Heart rate 88 beats per minute. S1, S2 normal. Heart sounds are somewhat distant. LUNGS: Reveal mostly clear breath sounds. No wheezes, rhonchi, or crackles. Breath sounds equal bilaterally. ABDOMEN: Soft. Bowel sounds are heard. EXTREMITIES are intact. No cyanosis, clubbing, or edema. SKIN: Without rash. NEUROLOGIC: Examination is nonfocal. LABS: White count 16.7, hemoglobin 10, hematocrit 31.1, platelet count 184,000, sodium 134, potassium 3.8, chloride 103, CO2 28, anion gap is 3. BUN and creatinine were 23 and 0.72. Microbiologic studies are negative. No recent chest x-ray to report. MEDICATIONS: Reviewed. Currently, the patient is on Symbicort, Coreg, iron, Proscar, subcu heparin, hydrocortisone, Dilaudid, insulin, lisinopril, magnesium, Singulair, Narcan, Protonix, potassium replacement. ASSESSMENT: 1. Postoperative day #5, status post exploratory laparotomy, total colectomy, ileostomy, for severe Crohn disease with colonic strictures. 2. Postoperative hypotension, resolved, treated with IV fluid administration and IV hydrocortisone for suspected relative adrenal insufficiency. 3. History of long-standing inflammatory bowel disease/Crohn's colitis with strictures. 4. Chronic steroid use, rule out adrenal insufficiency. 5. Acute hypoxemic respiratory failure with routine postoperative ventilator management, resolved. 6. History of cerebrovascular accident/transient ischemic attack. 7. Type 2 diabetes mellitus. 8. Hypertension. 9. Hyperlipidemia. 10.History of history of Ehmwb-Lmcjgewmp-Hphgl syndrome. 11.Chronic back pain. 12.History of MRSA. 13.History of chronic obstructive pulmonary disease. PLAN: Currently, the patient is not receiving any supplemental oxygen. The patient could be transferred to the general medical floor without telemetry. If the patient is taking food or liquid my mouth, we could switch his IV hydrocortisone to oral prednisone or Cortef. Additional recommendations and suggestions are forthcoming. Prognosis is guarded. Clinically, the patient is stable. We will continue to encourage deep breathing, coughing, clearing secretions and hourly use of the incentive spirometer. SHANDA / LESLIEN: [id number] /
[2020-06-27 12:03] LABS: Glucose,Whole Blood 192 mg/dL (75-99)
[2020-06-27 17:10] LABS: Glucose,Whole Blood 213 mg/dL (75-99)
--- NOTE | 2020-06-27 18:18 | P.PN ---
Subjective Progress Note Date: 06/27/20 Principal diagnosis: Colonic stricture, secondary to Crohn's disease, status post subtotal colectomy and ileostomy formation 69-year-old white male patient who was admitted to the hospital on 06/22/2024 subtotal colectomy and ileostomy formation for history of colonic stricture secondary to Crohn's disease, and experienced hypotension in the postoperative period and was transferred to the intensive care unit, where he was fluid resuscitated, patient require stress doses of IV hydrocortisone 06/26/2020 patient seen and evaluated for follow-up in ICU; POD #4, status exploratory laparotomy which was, converted to open procedure, total colectomy with ileostomy. Patient remained stable, he is on supplemental oxygen at 3 L a pulse ox of 95%, hemodynamically patient is stable, as been working on incentive spirometer Midabdominal incision is clean dry and intact. Patient remains nothing by mouth except for ice chips. He is at abdominal incision and ileostomy are clean dry and intact, no output in the ileostomy He is on lactated Ringer's at a rate of 75 ML per hour, surgical services are following. Soft, no nausea vomiting or diarrhea. His labs have been reviewed, showing white blood cell count of 14.6, hemoglobin of 9.6, sodium is 137, potassium is 3.3, chloride is 103, CO2 33, B1 is 21 creatinine 0.75. Yesterday's chest x-ray shows atelectasis at the lung bases. Lung sounds revealed diminished breath sounds at the bases, patient remains on nebulized bronchodilators, no acute events overnight, his been awaiting a bed on general medical floor with telemetry 06/27/2020 Patient is seen and evaluated in ICU; denies any specific complaints Vital signs are stable with a temperature of 98.5, pulse 88, respiration 18 and blood pressure 137/72 with SpO2 of 94% on 2 L White blood count of 16.7, hemoglobin 10 and platelet count of 1 84,000. Sodium of 134, potassium 2.8, BUN/creatinine of 23/0.72 Patient has fair oral intake; has been switched to oral prednisone; patient has been cleared for transfer to general medical floor Objective - Vital Signs Vital signs: Vital Signs Temp 98.5 F 06/26/20 23:00 Pulse 88 06/26/20 23:00 Resp 18 06/26/20 23:00 BP 137/72 06/26/20 23:00 Pulse Ox 94 L 06/26/20 23:00 Intake & Output 06/26/20 06/27/20 06/27/20 18:59 06:59 18:59 Intake Total 1750 1150 225 Output Total 1300 400 200 Balance 450 750 25 Weight 99.9 kg Intake: IV 750 750 225 Lactated Ringers 1,000 ml 750 750 225 @ 75 mls/hr IV .[id number] [facility] Rx#:[id number] Oral 1000 400 Output: Urine 1300 400 200 Other: Voiding Method Urinal Urinal Urinal - Exam GENERAL EXAM: Alert, very pleasant, 69-year-old white male on 3 L of oxygen with a pulse ox of 95%, resting comfortably in bed HEAD: Normocephalic/atraumatic. EYES: Normal reaction of pupils, equal size. Conjunctiva pink, sclera white. NOSE: Clear with pink turbinates. THROAT: No erythema or exudates. NECK: No masses, no JVD, no thyroid enlargement, no adenopathy. CHEST: No chest wall deformity. Symmetrical expansion. LUNGS: Equal air entry with no crackles, wheeze, rhonchi or dullness. CVS: Regular rate and rhythm, normal S1 and S2, no gallops, no murmurs, no rubs ABDOMEN: Soft, nontender. No hepatosplenomegaly, normal bowel sounds, no guarding or rigidity. Ileostomy in place, in the right lower quadrant, pink and viable, with no output. Abdominal incision covered with a surgical dressing, clean dry and intact EXTREMITIES: No clubbing, no edema, no cyanosis, 2+ pulses and upper and lower extremities. - Labs CBC & Chem 7: 06/27/20 03:37 06/27/20 03:37 Labs: Abnormal Lab Results - Last 24 Hours (Table) 06/26/20 06/26/20 06/26/20 Range/Units 12:02 16:55 20:40 WBC (3.8-10.6) k/uL RBC (4.30-5.90) m/uL Hgb (13.0-17.5) gm/dL Hct (39.0-53.0) % Sodium (137-145) mmol/L BUN (9-20) mg/dL Glucose (74-99) mg/dL POC Glucose (mg/dL) 137 H 161 H 194 H (75-99) mg/dL Calcium (8.4-10.2) mg/dL 06/27/20 06/27/20 06/27/20 Range/Units 03:37 03:37 06:56 WBC 16.7 H (3.8-10.6) k/uL RBC 3.19 L (4.30-5.90) m/uL Hgb 10.0 L (13.0-17.5) gm/dL Hct 31.1 L (39.0-53.0) % Sodium 134 L (137-145) mmol/L BUN 23 H (9-20) mg/dL Glucose 178 H (74-99) mg/dL POC Glucose (mg/dL) 189 H (75-99) mg/dL Calcium 8.0 L (8.4-10.2) mg/dL Assessment and Plan Assessment: Colonic stricture secondary to Crohn's disease status post subtotal colectomy and ileostomy formation Most likely acute blood loss anemia secondary to surgery Hyperlipidemia Hypertension Transient hypotensive, improved with fluids and steroids History of CVA/TIA with some residual blood test Hearing difficulty Chronic back pain Leukocytosis secondary to steroid effect and reactive from surgery Plan: 69 years old male who presents for colonic stricture status post subtotal colectomy. Continue with hydrocortisone 100 mg 3 times a day. Monitor sugars and continue with insulin sliding scale.keep monitoring hemoglobin, start the patient on are pulse Labs and medication were reviewed.. Continue same treatment. Continue with symptomatic treatment. Resume home medication. Monitor lytes and vitals. DVT and GI prophylaxis. Further recommendations of the clinical course of the patient DVT prophylaxis: Subcutaneous heparin GI Prophylaxis: Ppi Prognosis is guarded
[2020-06-27 20:04] LABS: Glucose,Whole Blood 190 mg/dL (75-99)
[2020-06-28 04:41] LABS: HCT 32.2 % (39.0-53.0); HGB 10.1 gm/dL (13.0-17.5); Hypochromasia Slight; MCH 30.2 pg (25.0-35.0); MCHC 31.3 g/dL (31.0-37.0); MCV 96.4 fL (80.0-100.0); Mean Platelet Volume 8.1; Platelet Count 212 k/uL (150-450); RBC 3.35 m/uL (4.30-5.90); RDW 14.1 % (11.5-15.5); WBC 14.9 k/uL (3.8-10.6)
[2020-06-28 05:09] LABS: African American GFR (CKD) >90 (>60 ml/min/1.73 sqM); Anion Gap 2 mmol/L; Blood Urea Nitrogen 22 mg/dL (9-20); Carbon Dioxide 32 mmol/L (22-30); Chloride 103 mmol/L (98-107); Glucose 95 mg/dL (74-99); Non-African American GFR(CKD) >90 (>60 ml/min/1.73 sqM); Potassium 3.2 mmol/L (3.5-5.1); Sodium 137 mmol/L (137-145)
[2020-06-28] MEDS: POTASSIUM CHLORIDE ER 20 MEQ TAB.ER PO SCH ×2 (06:18→07:21)
[2020-06-28] MEDS: FERROUS SULFATE 325 MG TAB PO SCH ×2 (06:19→18:38)
[2020-06-28 06:24] LABS: Glucose,Whole Blood 110 mg/dL (75-99)
[2020-06-28] MEDS: INSULIN ASPART (NovoLOG) 100 UNIT/ML VIAL SQ SCH ×4 (06:24→21:06)
--- NOTE | 2020-06-28 09:30 | P.PN ---
Subjective Progress Note Date: 06/28/20 Patient seen and examined at bedside. Worked with physical therapy yesterday. States his pain is well-controlled. Ostomy is functioning with output. Objective - Vital Signs Vital signs: Vital Signs Temp 98.0 F 06/28/20 07:00 Pulse 99 06/28/20 07:00 Resp 18 06/28/20 07:00 BP 134/80 06/28/20 07:00 Pulse Ox 95 06/28/20 07:00 Intake & Output 06/27/20 06/28/20 06/28/20 18:59 06:59 18:59 Intake Total 1475 1175 225 Output Total 750 700 300 Balance 725 475 -75 Intake: IV 975 675 225 Lactated Ringers 1,000 ml 975 675 225 @ 75 mls/hr IV .[id number] [facility] Rx#:[id number] Oral 500 500 Output: Urine 750 700 300 Other: Voiding Method Urinal Urinal Urinal # Voids 1 - Constitutional General appearance: Present: cooperative, no acute distress - Gastrointestinal Gastrointestinal Comment(s): Soft, nontender, nondistended, no rebound, no guarding, midline incision clean, dry and intact, ostomy is pink and patent with output - Musculoskeletal Musculoskeletal: Present: generalized weakness - Psychiatric Psychiatric: Present: A&O x's 3 - Labs CBC & Chem 7: 06/28/20 03:31 06/28/20 03:31 Labs: Abnormal Lab Results - Last 24 Hours (Table) 06/27/20 06/27/20 06/27/20 Range/Units 12:01 17:08 20:02 WBC (3.8-10.6) k/uL RBC (4.30-5.90) m/uL Hgb (13.0-17.5) gm/dL Hct (39.0-53.0) % Potassium (3.5-5.1) mmol/L Carbon Dioxide (22-30) mmol/L BUN (9-20) mg/dL POC Glucose (mg/dL) 192 H 213 H 190 H (75-99) mg/dL Calcium (8.4-10.2) mg/dL 06/28/20 06/28/20 06/28/20 Range/Units 03:31 03:31 06:23 WBC 14.9 H (3.8-10.6) k/uL RBC 3.35 L (4.30-5.90) m/uL Hgb 10.1 L (13.0-17.5) gm/dL Hct 32.2 L (39.0-53.0) % Potassium 3.2 L (3.5-5.1) mmol/L Carbon Dioxide 32 H (22-30) mmol/L BUN 22 H (9-20) mg/dL POC Glucose (mg/dL) 110 H (75-99) mg/dL Calcium 8.0 L (8.4-10.2) mg/dL Assessment and Plan Plan: 69-year-old male, postoperative day #6 subtotal colectomy with ileostomy creation Continue to increase activity, patient is working with physical therapy Continue pain control Continue incentive spirometry Patient is having bowel function, advance diet to low-fat diet Progressing slowly Medical recommendations appreciated
[2020-06-28] MEDS: HEPARIN SODIUM,PORCINE 5,000 UNIT/ML 1 ML VIAL SQ SCH ×3 (09:37→23:35)
[2020-06-28] MEDS: MONTELUKAST 10 MG TAB PO SCH (09:37)
[2020-06-28] MEDS: PANTOPRAZOLE 40 MG/10 ML VIAL IV SCH (09:38)
[2020-06-28] MEDS: predniSONE 20 MG TAB PO SCH (09:38)
[2020-06-28] MEDS: carvediloL 3.125 MG TAB PO SCH ×2 (09:38→21:06)
[2020-06-28] MEDS: lisinopriL 10 MG TAB PO SCH (09:38)
[2020-06-28] MEDS: FINASTERIDE 5 MG TAB PO SCH (09:38)
[2020-06-28] MEDS: LACTATED RINGERS 1,000 ML IV SCH ×2 (11:35→21:18)
[2020-06-28 11:50] LABS: Glucose,Whole Blood 114 mg/dL (75-99)
--- NOTE | 2020-06-28 12:15 | PN ---
PROGRESS NOTE PULMONARY/CRITICAL CARE PROGRESS NOTE: DATE OF SERVICE: 06/28/2020 This a 69-year-old male, postop day #6 status post exploratory laparotomy, total colectomy and ileostomy for severe Crohn's colitis with strictures. Currently, the patient is doing well. He is not receiving any supplemental oxygen. The patient is on saline at 75 mL an hour. He has no major complaints. We have been encouraging him to take deep breaths, cough, clear secretions and use the incentive spirometer q.1 hour. PHYSICAL EXAMINATION: VITAL SIGNS: Current vital signs are reviewed. Temperature is 98, heart rate 99, respiratory rate 18, blood pressure 134/80, mean 98, room air saturation 95%. He appears in no acute distress. HEENT: Examination is grossly unremarkable. Mucous membranes are moist. No nasal O2 noted. NECK: Supple. full range of motion. No adenopathy or thyromegaly. Neck veins are flat. CARDIOVASCULAR: Examination reveals regular rhythm rate. Heart rate 90 beats per minute. S1, S2 normal. LUNGS: Reveal mostly clear breath sounds. A few scattered mild rhonchi. No wheezes or crackles. ABDOMEN: Soft. EXTREMITIES are intact. No cyanosis, clubbing, or edema. SKIN: Without rash. NEUROLOGIC: Examination is brief but nonfocal. LABS: White count 14.9, hemoglobin 10.1, hematocrit 32.2, platelet count 212,000. Sodium 137, potassium 3.2, chloride 103, CO2 32, anion gap is 2, BUN and creatinine were 22 and 0.82. Microbiologic studies are negative. No additional x-rays to review. Medications are reviewed. ASSESSMENT: 1. Postoperative day #6, status post exploratory laparotomy, total colectomy, ileostomy, for severe Crohn disease with chronic colonic strictures. 2. Postoperative hypotension, resolved, treated with IV fluid administration and IV hydrocortisone for suspected relative adrenal insufficiency. 3. History of long-standing inflammatory bowel disease/Crohn's colitis with strictures. 4. Chronic steroid use, rule out adrenal insufficiency. 5. Acute hypoxemic respiratory failure with routine postoperative ventilator management, resolved. 6. History of cerebrovascular accident/transient ischemic attack. 7. Type 2 diabetes mellitus. 8. Hypertension. 9. Hyperlipidemia. 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 11.Chronic back pain. 12.History of MRSA infection, observe. 13.Chronic obstructive pulmonary disease. PLAN: Currently, the patient is doing reasonably well. The patient is taking things by mouth. He is not on any supplemental oxygen. He is getting saline at 75 mL an hour. The patient's hydrocortisone was switched to prednisone yesterday at 20 mg a day. His other medications are appropriate. We will continue to follow. Prognosis is guarded. MMODL / IJN: [id number] /
--- NOTE | 2020-06-28 15:35 | P.PN ---
Subjective Progress Note Date: 06/28/20 Principal diagnosis: Colonic stricture, secondary to Crohn's disease, status post subtotal colectomy and ileostomy formation 69-year-old white male patient who was admitted to the hospital on 06/22/2024 subtotal colectomy and ileostomy formation for history of colonic stricture secondary to Crohn's disease, and experienced hypotension in the postoperative period and was transferred to the intensive care unit, where he was fluid resuscitated, patient require stress doses of IV hydrocortisone 06/26/2020 patient seen and evaluated for follow-up in ICU; POD #4, status exploratory laparotomy which was, converted to open procedure, total colectomy with ileostomy. Patient remained stable, he is on supplemental oxygen at 3 L a pulse ox of 95%, hemodynamically patient is stable, as been working on incentive spirometer Midabdominal incision is clean dry and intact. Patient remains nothing by mouth except for ice chips. He is at abdominal incision and ileostomy are clean dry and intact, no output in the ileostomy He is on lactated Ringer's at a rate of 75 ML per hour, surgical services are following. Soft, no nausea vomiting or diarrhea. His labs have been reviewed, showing white blood cell count of 14.6, hemoglobin of 9.6, sodium is 137, potassium is 3.3, chloride is 103, CO2 33, B1 is 21 creatinine 0.75. Yesterday's chest x-ray shows atelectasis at the lung bases. Lung sounds revealed diminished breath sounds at the bases, patient remains on nebulized bronchodilators, no acute events overnight, his been awaiting a bed on general medical floor with telemetry 06/27/2020 Patient is seen and evaluated in ICU; denies any specific complaints Vital signs are stable with a temperature of 98.5, pulse 88, respiration 18 and blood pressure 137/72 with SpO2 of 94% on 2 L White blood count of 16.7, hemoglobin 10 and platelet count of 1 84,000. Sodium of 134, potassium 2.8, BUN/creatinine of 23/0.72 Patient has fair oral intake; has been switched to oral prednisone; patient has been cleared for transfer to general medical floor 06/28/2020 Patient is seen and evaluated in room at bedside; reports optimal pain control Vital signs remained stable with a temperature of 98.2, pulse 89, respiration 18 and blood pressure 134/80 Surgery is following and recommending to continue to increase activity with physical therapy, incentive spirometry as recommended and optimal pain control; patient is having return bowel function and diet is advanced to low-fat Objective - Vital Signs Vital signs: Vital Signs Temp 98.0 F 06/28/20 07:00 Pulse 99 06/28/20 07:00 Resp 18 06/28/20 07:00 BP 134/80 06/28/20 07:00 Pulse Ox 95 06/28/20 07:00 Intake & Output 06/27/20 06/28/20 06/28/20 18:59 06:59 18:59 Intake Total 1475 1175 225 Output Total 750 700 300 Balance 725 475 -75 Intake: IV 975 675 225 Lactated Ringers 1,000 ml 975 675 225 @ 75 mls/hr IV .[id number] [facility] Rx#:[id number] Oral 500 500 Output: Urine 750 700 300 Other: Voiding Method Urinal Urinal Urinal # Voids 1 - Exam GENERAL EXAM: Alert, very pleasant, 69-year-old white male on 3 L of oxygen with a pulse ox of 95%, resting comfortably in bed HEAD: Normocephalic/atraumatic. EYES: Normal reaction of pupils, equal size. Conjunctiva pink, sclera white. NOSE: Clear with pink turbinates. THROAT: No erythema or exudates. NECK: No masses, no JVD, no thyroid enlargement, no adenopathy. CHEST: No chest wall deformity. Symmetrical expansion. LUNGS: Equal air entry with no crackles, wheeze, rhonchi or dullness. CVS: Regular rate and rhythm, normal S1 and S2, no gallops, no murmurs, no rubs ABDOMEN: Soft, nontender. No hepatosplenomegaly, normal bowel sounds, no guarding or rigidity. Ileostomy in place, in the right lower quadrant, pink and viable, with no output. Abdominal incision covered with a surgical dressing, clean dry and intact EXTREMITIES: No clubbing, no edema, no cyanosis, 2+ pulses and upper and lower extremities. - Labs CBC & Chem 7: 06/28/20 03:31 06/28/20 03:31 Labs: Abnormal Lab Results - Last 24 Hours (Table) 06/27/20 06/27/20 06/27/20 Range/Units 12:01 17:08 20:02 WBC (3.8-10.6) k/uL RBC (4.30-5.90) m/uL Hgb (13.0-17.5) gm/dL Hct (39.0-53.0) % Potassium (3.5-5.1) mmol/L Carbon Dioxide (22-30) mmol/L BUN (9-20) mg/dL POC Glucose (mg/dL) 192 H 213 H 190 H (75-99) mg/dL Calcium (8.4-10.2) mg/dL 06/28/20 06/28/20 06/28/20 Range/Units 03:31 03:31 06:23 WBC 14.9 H (3.8-10.6) k/uL RBC 3.35 L (4.30-5.90) m/uL Hgb 10.1 L (13.0-17.5) gm/dL Hct 32.2 L (39.0-53.0) % Potassium 3.2 L (3.5-5.1) mmol/L Carbon Dioxide 32 H (22-30) mmol/L BUN 22 H (9-20) mg/dL POC Glucose (mg/dL) 110 H (75-99) mg/dL Calcium 8.0 L (8.4-10.2) mg/dL Assessment and Plan Assessment: Colonic stricture secondary to Crohn's disease status post subtotal colectomy and ileostomy formation Most likely acute blood loss anemia secondary to surgery Hyperlipidemia Hypertension Transient hypotensive, improved with fluids and steroids History of CVA/TIA with some residual blood test Hearing difficulty Chronic back pain Leukocytosis secondary to steroid effect and reactive from surgery Plan: 69 years old male who presents for colonic stricture status post subtotal colectomy. Continue with hydrocortisone 100 mg 3 times a day. Monitor sugars and continue with insulin sliding scale.keep monitoring hemoglobin, start the patient on are pulse Labs and medication were reviewed.. Continue same treatment. Continue with symptomatic treatment. Resume home medication. Monitor lytes and vitals. DVT and GI prophylaxis. Further recommendations of the clinical course of the patient DVT prophylaxis: Subcutaneous heparin GI Prophylaxis: Ppi Prognosis is guarded
[2020-06-28 16:39] LABS: Glucose,Whole Blood 148 mg/dL (75-99)
[2020-06-28 21:00] LABS: Glucose,Whole Blood 224 mg/dL (75-99)
[2020-06-29 07:36] LABS: Glucose,Whole Blood 169 mg/dL (75-99)
[2020-06-29] MEDS: FINASTERIDE 5 MG TAB PO SCH (08:40)
[2020-06-29] MEDS: predniSONE 20 MG TAB PO SCH (08:40)
[2020-06-29] MEDS: HEPARIN SODIUM,PORCINE 5,000 UNIT/ML 1 ML VIAL SQ SCH ×3 (08:40→23:04)
[2020-06-29] MEDS: carvediloL 3.125 MG TAB PO SCH ×2 (08:41→20:50)
[2020-06-29] MEDS: lisinopriL 10 MG TAB PO SCH (08:41)
[2020-06-29] MEDS: FERROUS SULFATE 325 MG TAB PO SCH ×2 (08:41→17:07)
[2020-06-29] MEDS: INSULIN ASPART (NovoLOG) 100 UNIT/ML VIAL SQ SCH ×4 (08:41→20:51)
[2020-06-29] MEDS: MONTELUKAST 10 MG TAB PO SCH (08:41)
[2020-06-29] MEDS: PANTOPRAZOLE 40 MG/10 ML VIAL IV SCH (08:41)
[2020-06-29 11:25] LABS: Glucose,Whole Blood 191 mg/dL (75-99)
--- NOTE | 2020-06-29 14:39 | P.PN ---
Subjective Colonic stricture, secondary to Crohn's disease, status post subtotal colectomy and ileostomy formation 69-year-old white male patient who was admitted to the hospital on 06/22/2024 subtotal colectomy and ileostomy formation for history of colonic stricture secondary to Crohn's disease, and experienced hypotension in the postoperative period and was transferred to the intensive care unit, where he was fluid resuscitated, patient require stress doses of IV hydrocortisone 06/26/2020 patient seen and evaluated for follow-up in ICU; POD #4, status exploratory laparotomy which was, converted to open procedure, total colectomy with ileostomy. Patient remained stable, he is on supplemental oxygen at 3 L a pulse ox of 95%, hemodynamically patient is stable, as been working on incentive spirometer Midabdominal incision is clean dry and intact. Patient remains nothing by mouth except for ice chips. He is at abdominal incision and ileostomy are clean dry and intact, no output in the ileostomy He is on lactated Ringer's at a rate of 75 ML per hour, surgical services are following. Soft, no nausea vomiting or diarrhea. His labs have been reviewed, showing white blood cell count of 14.6, hemoglobin of 9.6, sodium is 137, potassium is 3.3, chloride is 103, CO2 33, B1 is 21 creatinine 0.75. Yesterday's chest x-ray shows atelectasis at the lung bases. Lung sounds revealed diminished breath sounds at the bases, patient remains on nebulized bronchodilators, no acute events overnight, his been awaiting a bed on general medical floor with telemetry 06/27/2020 Patient is seen and evaluated in ICU; denies any specific complaints Vital signs are stable with a temperature of 98.5, pulse 88, respiration 18 and blood pressure 137/72 with SpO2 of 94% on 2 L White blood count of 16.7, hemoglobin 10 and platelet count of 1 84,000. Sodium of 134, potassium 2.8, BUN/creatinine of 23/0.72 Patient has fair oral intake; has been switched to oral prednisone; patient has been cleared for transfer to general medical floor 06/28/2020 Patient is seen and evaluated in room at bedside; reports optimal pain control Vital signs remained stable with a temperature of 98.2, pulse 89, respiration 18 and blood pressure 134/80 Surgery is following and recommending to continue to increase activity with physical therapy, incentive spirometry as recommended and optimal pain control; patient is having return bowel function and diet is advanced to low-fat 06/29/2020 Patient is tolerating diet well, was started on low-fat diet. Constitutional: Denied any fatigue denied any fever. Cardio vascular: denied any chest pain, palpitations Gastrointestinal denied any nausea vomiting Pulmonary: Denied any shortness of breath cough Neurologic denied any new focal deficits All inpatient medications were reviewed and appropriate changes in these medications as dictated in the interval history and assessment and plan. Objective - Vital Signs Vital signs: Vital Signs Temp 98.7 F 06/29/20 07:00 Pulse 92 06/29/20 07:00 Resp 16 06/29/20 07:00 BP 127/87 06/29/20 07:00 Pulse Ox 91 L 06/29/20 07:00 Intake & Output 06/28/20 06/29/20 06/29/20 18:59 06:59 18:59 Intake Total 675 1025 Output Total 2446 357 0052 Balance -675 525 -1100 Weight 99.9 kg Intake: IV 675 525 Lactated Ringers 1,000 ml 675 525 @ 75 mls/hr IV .[id number] [facility] Rx#:[id number] Oral 500 Output: Urine 1350 200 700 Stool 300 400 Other: Voiding Method Urinal Urinal Urinal # Bowel Movements 1 - Exam GENERAL EXAM: Alert, very pleasant, 69-year-old white male on 3 L of oxygen with a pulse ox of 95%, resting comfortably in bed HEAD: Normocephalic/atraumatic. EYES: Normal reaction of pupils, equal size. Conjunctiva pink, sclera white. NOSE: Clear with pink turbinates. THROAT: No erythema or exudates. NECK: No masses, no JVD, no thyroid enlargement, no adenopathy. CHEST: No chest wall deformity. Symmetrical expansion. LUNGS: Equal air entry with no crackles, wheeze, rhonchi or dullness. CVS: Regular rate and rhythm, normal S1 and S2, no gallops, no murmurs, no rubs ABDOMEN: Soft, nontender. No hepatosplenomegaly, normal bowel sounds, no guarding or rigidity. Ileostomy in place, in the right lower quadrant, pink and viable, with no output. Abdominal incision covered with a surgical dressing, clean dry and intact EXTREMITIES: No clubbing, no edema, no cyanosis, 2+ pulses and upper and lower extremities. - Labs CBC & Chem 7: 06/28/20 03:31 06/28/20 03:31 Labs: Abnormal Lab Results - Last 24 Hours (Table) 06/28/20 06/28/20 06/29/20 Range/Units 16:37 20:59 07:35 POC Glucose (mg/dL) 148 H 224 H 169 H (75-99) mg/dL 06/29/20 Range/Units 11:24 POC Glucose (mg/dL) 191 H (75-99) mg/dL Assessment and Plan Plan: Colonic stricture secondary to Crohn's disease status post subtotal colectomy and ileostomy creation. Patient is tolerating the soft diet very well at this time. Most likely acute blood loss anemia secondary to surgery Hyperlipidemia Hypertension Transient hypotensive, improved with fluids and steroids History of CVA/TIA with some residual blood test Hearing difficulty Chronic back pain Leukocytosis secondary to steroid effect and reactive from surgery -hypotension which patient was on hydrocortisone with concerns of cortisol is him although there is no evidence of that at this time patient was switched to prednisone.
--- NOTE | 2020-06-29 15:13 | P.PN ---
Subjective Progress Note Date: 06/29/20 06/29/2020 the patient is being seen as the patient got transferred out of the intensive care unit.. The patient is postop day #7 following an expiratory laparotomy and total colectomy and ileostomy for severe Crohn's disease and chronic colonic strictures. This patient's has a long standing history of inflammatory bowel disease/Crohn's disease and the patient has been utilizing steroids on a chronic basis. The patient currently extubated. The patient is receiving supplemental oxygen. The patient is currently room air with a pulse ox of 94-95%. The patient is doing well up in no respiratory distress. On IV fluids at the rate of 75 mL an hour of normal saline. Using incentive spirometer. No fever. No other significant events overnight. The patient is on Dilaudid for pain control and the patient has adequate pain control for now. The patient is also back on prednisone at a dose of 20 mg by mouth on a daily basis. The white cell count is moving in the surgical wound site is dry clean and intact. The patient worked with physical therapy and pain is under good control and an ostomy is functional with adequate output of this point in time. Clinically the patient is doing well. The patient on room air oxygen. The surgical wound site is dry clean and intact. The stoma still functional. No issues. No respiratory difficulties. Objective - Vital Signs Vital signs: Vital Signs Temp 99.4 F 06/29/20 14:50 Pulse 95 06/29/20 14:50 Resp 18 06/29/20 14:50 BP 123/85 06/29/20 14:50 Pulse Ox 91 L 06/29/20 14:50 Intake & Output 06/28/20 06/29/20 06/29/20 18:59 06:59 18:59 Intake Total 675 1025 Output Total 5440 059 7635 Balance -675 525 -1100 Weight 99.9 kg Intake: IV 675 525 Lactated Ringers 1,000 ml 675 525 @ 75 mls/hr IV .[id number] [facility] Rx#:[id number] Oral 500 Output: Urine 1350 200 700 Stool 300 400 Other: Voiding Method Urinal Urinal Urinal # Bowel Movements 1 - Exam GENERAL EXAM: Alert, very pleasant, 69-year-old white male on room air oxygen with a pulse ox of 95%, resting comfortably in bed HEAD: Normocephalic/atraumatic. EYES: Normal reaction of pupils, equal size. Conjunctiva pink, sclera white. NOSE: Clear with pink turbinates. THROAT: No erythema or exudates. NECK: No masses, no JVD, no thyroid enlargement, no adenopathy. CHEST: No chest wall deformity. Symmetrical expansion. LUNGS: Equal air entry with no crackles, wheeze, rhonchi or dullness. CVS: Regular rate and rhythm, normal S1 and S2, no gallops, no murmurs, no rubs ABDOMEN: Soft, nontender. No hepatosplenomegaly, normal bowel sounds, no guarding or rigidity. Ileostomy in place, in the right lower quadrant, pink and viable, with no output. Abdominal incision covered with a surgical dressing, clean dry and intact. The princess are still in place and there are intact and there is no signs of any infection EXTREMITIES: No clubbing, no edema, no cyanosis, 2+ pulses and upper and lower extremities. MUSCULOSKELETAL: Muscle strength and tone normal. SPINE: No scoliosis or deformity SKIN: No rashes CENTRAL NERVOUS SYSTEM: Alert and oriented -3. No focal deficits, tone is normal in all 4 extremities. PSYCHIATRIC: Alert and oriented -3. Appropriate affect. Intact judgment and insight. - Labs CBC & Chem 7: 06/28/20 03:31 06/28/20 03:31 Labs: Abnormal Lab Results - Last 24 Hours (Table) 06/28/20 06/28/20 06/29/20 Range/Units 16:37 20:59 07:35 POC Glucose (mg/dL) 148 H 224 H 169 H (75-99) mg/dL 06/29/20 Range/Units 11:24 POC Glucose (mg/dL) 191 H (75-99) mg/dL Assessment and Plan Plan: 1 Severe inflammatory bowel disease/Crohn's disease with bowel strictures and the patient is post subtotal colectomy and diverting ileostomy creation and the patient is postop day #7. The ostomy is functional and viable at this point in time. 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 11 postoperative anemia, expected outcome of surgery 12 leukocytosis, improving Plan Patient has a stable pulmonary status Hemodynamically stable Currently on room air oxygen Surgical wound site is dry clean and intact Hemoglobin stable at 10.1 White cell is at 14.9 we will sign off the case and leave the rest of the management of medicine and the surgical team.
[2020-06-29 17:21] LABS: Glucose,Whole Blood 275 mg/dL (75-99)
[2020-06-29 20:47] LABS: Glucose,Whole Blood 346 mg/dL (75-99)
[2020-06-29] MEDS: SYMBICORT 160-4.5 MCG INHALER INHALATION PRN (21:54)
[2020-06-29] MEDS: ONDANSETRON 4 MG/2 ML VIAL IVP PRN (23:04)
[2020-06-30 07:17] LABS: Glucose,Whole Blood 259 mg/dL (75-99)
[2020-06-30] MEDS: INSULIN ASPART (NovoLOG) 100 UNIT/ML VIAL SQ SCH ×4 (07:31→22:17)
[2020-06-30] MEDS: PANTOPRAZOLE 40 MG/10 ML VIAL IV SCH (07:31)
[2020-06-30] MEDS: FINASTERIDE 5 MG TAB PO SCH (07:32)
[2020-06-30] MEDS: FERROUS SULFATE 325 MG TAB PO SCH ×2 (07:32→18:16)
[2020-06-30] MEDS: MONTELUKAST 10 MG TAB PO SCH (07:32)
[2020-06-30] MEDS: HEPARIN SODIUM,PORCINE 5,000 UNIT/ML 1 ML VIAL SQ SCH ×3 (07:32→23:42)
[2020-06-30] MEDS: carvediloL 3.125 MG TAB PO SCH ×2 (07:32→20:25)
[2020-06-30] MEDS: predniSONE 20 MG TAB PO SCH (07:32)
[2020-06-30] MEDS: lisinopriL 10 MG TAB PO SCH (07:32)
[2020-06-30] MEDS: SYMBICORT 160-4.5 MCG INHALER INHALATION PRN (07:54)
[2020-06-30] MEDS: DIPHENOX-ATROP 2.5-0.025 MG 1 EACH TAB PO SCH ×2 (08:28→22:17)
[2020-06-30] MEDS: ONDANSETRON 4 MG/2 ML VIAL IVP PRN (08:34)
[2020-06-30 09:27] LABS: African American GFR (CKD) 80.1 (60.0-200.0); Anion Gap 14.3 mmol/L (4.00-12.00); Calcium 8.7 mg/dL (8.7-10.3); Carbon Dioxide 20.7 mmol/L (21.6-31.8); Non-African American GFR(CKD) 69.1 (60.0-200.0); Potassium 4.4 mmol/L (3.5-5.5)
[2020-06-30 11:40] LABS: Glucose,Whole Blood 175 mg/dL (75-99)
[2020-06-30] MEDS: SODIUM CHLORIDE 0.9% 1,000 ML IV SCH (14:29)
--- NOTE | 2020-06-30 14:34 | P.PN ---
Subjective Colonic stricture, secondary to Crohn's disease, status post subtotal colectomy and ileostomy formation 69-year-old white male patient who was admitted to the hospital on 06/22/2024 subtotal colectomy and ileostomy formation for history of colonic stricture secondary to Crohn's disease, and experienced hypotension in the postoperative period and was transferred to the intensive care unit, where he was fluid resuscitated, patient require stress doses of IV hydrocortisone 06/26/2020 patient seen and evaluated for follow-up in ICU; POD #4, status exploratory laparotomy which was, converted to open procedure, total colectomy with ileostomy. Patient remained stable, he is on supplemental oxygen at 3 L a pulse ox of 95%, hemodynamically patient is stable, as been working on incentive spirometer Midabdominal incision is clean dry and intact. Patient remains nothing by mouth except for ice chips. He is at abdominal incision and ileostomy are clean dry and intact, no output in the ileostomy He is on lactated Ringer's at a rate of 75 ML per hour, surgical services are following. Soft, no nausea vomiting or diarrhea. His labs have been reviewed, showing white blood cell count of 14.6, hemoglobin of 9.6, sodium is 137, potassium is 3.3, chloride is 103, CO2 33, B1 is 21 creatinine 0.75. Yesterday's chest x-ray shows atelectasis at the lung bases. Lung sounds revealed diminished breath sounds at the bases, patient remains on nebulized bronchodilators, no acute events overnight, his been awaiting a bed on general medical floor with telemetry 06/27/2020 Patient is seen and evaluated in ICU; denies any specific complaints Vital signs are stable with a temperature of 98.5, pulse 88, respiration 18 and blood pressure 137/72 with SpO2 of 94% on 2 L White blood count of 16.7, hemoglobin 10 and platelet count of 1 84,000. Sodium of 134, potassium 2.8, BUN/creatinine of 23/0.72 Patient has fair oral intake; has been switched to oral prednisone; patient has been cleared for transfer to general medical floor 06/28/2020 Patient is seen and evaluated in room at bedside; reports optimal pain control Vital signs remained stable with a temperature of 98.2, pulse 89, respiration 18 and blood pressure 134/80 Surgery is following and recommending to continue to increase activity with physical therapy, incentive spirometry as recommended and optimal pain control; patient is having return bowel function and diet is advanced to low-fat 06/29/2020 Patient is tolerating diet well, was started on low-fat diet. 06/30/2020 Patient is having significant output from the ostomy site because of which patient the creatinine went up a bit patient was started on IV fluids for today patient was started on Lomotil which will be continued. We'll monitor I's and O's. Patient's blood pressure is bit low because of some dehydration from excess output from the ostomy. Constitutional: Denied any fatigue denied any fever. Cardio vascular: denied any chest pain, palpitations Gastrointestinal denied any nausea vomiting Pulmonary: Denied any shortness of breath cough Neurologic denied any new focal deficits All inpatient medications were reviewed and appropriate changes in these medications as dictated in the interval history and assessment and plan. Objective - Vital Signs Vital signs: Vital Signs Temp 98.6 F 06/30/20 07:00 Pulse 103 H 06/30/20 07:00 Resp 16 06/30/20 01:01 BP 109/71 06/30/20 07:00 Pulse Ox 96 06/30/20 07:00 Intake & Output 06/29/20 06/30/20 06/30/20 18:59 06:59 18:59 Intake Total 500 Output Total 1400 1425 400 Balance -900 -1425 -400 Weight 99.9 kg Intake: Oral 500 Output: Urine 900 75 Stool 500 1350 400 Other: Voiding Method Urinal Urinal Urinal - Exam GENERAL EXAM: Alert, very pleasant, 69-year-old white male on 3 L of oxygen with a pulse ox of 95%, resting comfortably in bed HEAD: Normocephalic/atraumatic. EYES: Normal reaction of pupils, equal size. Conjunctiva pink, sclera white. NOSE: Clear with pink turbinates. THROAT: No erythema or exudates. NECK: No masses, no JVD, no thyroid enlargement, no adenopathy. CHEST: No chest wall deformity. Symmetrical expansion. LUNGS: Equal air entry with no crackles, wheeze, rhonchi or dullness. CVS: Regular rate and rhythm, normal S1 and S2, no gallops, no murmurs, no rubs ABDOMEN: Soft, nontender. No hepatosplenomegaly, normal bowel sounds, no guarding or rigidity. Ileostomy in place, in the right lower quadrant, pink and viable, with no output. Abdominal incision covered with a surgical dressing, clean dry and intact EXTREMITIES: No clubbing, no edema, no cyanosis, 2+ pulses and upper and lower extremities. - Labs CBC & Chem 7: 06/28/20 03:31 06/30/20 05:37 Labs: Abnormal Lab Results - Last 24 Hours (Table) 06/29/20 06/29/20 06/30/20 Range/Units 17:20 20:44 05:37 Carbon Dioxide 20.7 L (21.6-31.8) mmol/L Anion Gap 14.30 H (4.00-12.00) mmol/L BUN 33.0 H (9.0-27.0) mg/dL BUN/Creatinine Ratio 30.00 H (12.00-20.00) Ratio Glucose 214 H (70-110) mg/dL POC Glucose (mg/dL) 275 H 346 H (75-99) mg/dL 06/30/20 06/30/20 Range/Units 07:15 11:39 Carbon Dioxide (21.6-31.8) mmol/L Anion Gap (4.00-12.00) mmol/L BUN (9.0-27.0) mg/dL BUN/Creatinine Ratio (12.00-20.00) Ratio Glucose (70-110) mg/dL POC Glucose (mg/dL) 259 H 175 H (75-99) mg/dL Assessment and Plan Plan: Colonic stricture secondary to Crohn's disease status post subtotal colectomy and ileostomy creation. Patient is tolerating the soft diet very well at this time. 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
[2020-06-30 16:35] LABS: Glucose,Whole Blood 173 mg/dL (75-99)
--- NOTE | 2020-06-30 18:10 | P.PN ---
Subjective Progress Note Date: 06/30/20 Patient seen and examined at bedside. Noted to have high output from the ostomy with over 1 L over the last 24 hours. Objective - Vital Signs Vital signs: Vital Signs Temp 97.9 F 06/30/20 15:00 Pulse 101 H 06/30/20 15:00 Resp 16 06/30/20 01:01 BP 101/65 06/30/20 15:00 Pulse Ox 91 L 06/30/20 15:00 Intake & Output 06/29/20 06/30/20 06/30/20 18:59 06:59 18:59 Intake Total 500 Output Total 1400 1425 650 Balance -900 -1425 -650 Weight 99.9 kg Intake: Oral 500 Output: Urine 900 75 Stool 500 1350 650 Other: Voiding Method Urinal Urinal Urinal - Constitutional General appearance: Present: cooperative, no acute distress - Gastrointestinal Gastrointestinal Comment(s): Soft, nontender, nondistended, no rebound, no guarding, ostomy in place and is pink and patent - Psychiatric Psychiatric: Present: A&O x's 3 - Labs CBC & Chem 7: 06/28/20 03:31 06/30/20 05:37 Labs: Abnormal Lab Results - Last 24 Hours (Table) 06/29/20 06/30/20 06/30/20 Range/Units 20:44 05:37 07:15 Carbon Dioxide 20.7 L (21.6-31.8) mmol/L Anion Gap 14.30 H (4.00-12.00) mmol/L BUN 33.0 H (9.0-27.0) mg/dL BUN/Creatinine Ratio 30.00 H (12.00-20.00) Ratio Glucose 214 H (70-110) mg/dL POC Glucose (mg/dL) 346 H 259 H (75-99) mg/dL 06/30/20 06/30/20 Range/Units 11:39 16:34 Carbon Dioxide (21.6-31.8) mmol/L Anion Gap (4.00-12.00) mmol/L BUN (9.0-27.0) mg/dL BUN/Creatinine Ratio (12.00-20.00) Ratio Glucose (70-110) mg/dL POC Glucose (mg/dL) 175 H 173 H (75-99) mg/dL Assessment and Plan Plan: 69-year-old male, postoperative day #7 subtotal colectomy with ileostomy creation Continue to increase activity, patient is working with physical therapy Continue pain control Continue incentive spirometry Patient is noted to have some high output from ostomy, creatinine is noted to be elevated with some hypotension today. We will begin Lomotil. Medical management for IV fluids Progressing slowly Medical recommendations appreciated
[2020-06-30] MEDS ORDERED: SODIUM CHLORIDE 0.9% 500 ML 500 ML IV ONE (19:35)
[2020-06-30 21:30] LABS: Glucose,Whole Blood 197 mg/dL (75-99)
[2020-07-01] MEDS: SODIUM CHLORIDE 0.9% 1,000 ML IV SCH ×2 (05:56→12:59)
[2020-07-01 06:47] LABS: Glucose,Whole Blood 147 mg/dL (75-99)
[2020-07-01] MEDS: SYMBICORT 160-4.5 MCG INHALER INHALATION PRN ×2 (07:47→19:53)
[2020-07-01] MEDS: MONTELUKAST 10 MG TAB PO SCH (08:50)
[2020-07-01] MEDS: predniSONE 20 MG TAB PO SCH (08:50)
[2020-07-01] MEDS: PANTOPRAZOLE 40 MG/10 ML VIAL IV SCH (08:50)
[2020-07-01] MEDS: DIPHENOX-ATROP 2.5-0.025 MG 1 EACH TAB PO SCH ×3 (08:50→20:43)
[2020-07-01] MEDS: FERROUS SULFATE 325 MG TAB PO SCH ×2 (08:50→16:19)
[2020-07-01] MEDS: HEPARIN SODIUM,PORCINE 5,000 UNIT/ML 1 ML VIAL SQ SCH ×3 (08:50→23:21)
[2020-07-01] MEDS: INSULIN ASPART (NovoLOG) 100 UNIT/ML VIAL SQ SCH ×4 (08:50→20:43)
[2020-07-01] MEDS: FINASTERIDE 5 MG TAB PO SCH (08:50)
[2020-07-01] MEDS: lisinopriL 5 MG TAB PO SCH (08:51)
[2020-07-01 11:52] LABS: Glucose,Whole Blood 160 mg/dL (75-99)
[2020-07-01 12:29] LABS: African American GFR (CKD) 52 (>60 ml/min/1.73 sqM); Anion Gap 8 mmol/L; Blood Urea Nitrogen 53 mg/dL (9-20); Calcium 8.1 mg/dL (8.4-10.2); Carbon Dioxide 17 mmol/L (22-30); Chloride 110 mmol/L (98-107); Glucose 157 mg/dL (74-99); Non-African American GFR(CKD) 45 (>60 ml/min/1.73 sqM); Potassium 4.8 mmol/L (3.5-5.1); Sodium 135 mmol/L (137-145)
[2020-07-01] MEDS: LACTATED RINGERS 1,000 ML IV SCH ×2 (13:02→20:42)
--- NOTE | 2020-07-01 13:35 | P.PN ---
Subjective Progress Note Date: 07/01/20 Patient seen and examined at bedside. States he is feeling well. Denies abdominal pain. Ambulating. Ostomy output is thicker today. Objective - Vital Signs Vital signs: Vital Signs Temp 97.5 F L 07/01/20 07:00 Pulse 87 07/01/20 07:00 Resp 18 07/01/20 07:00 BP 96/68 07/01/20 07:00 Pulse Ox 99 07/01/20 07:00 Intake & Output 06/30/20 07/01/20 07/01/20 18:59 06:59 18:59 Intake Total 500 Output Total 650 750 300 Balance -650 -750 200 Weight 99.9 kg Intake: Oral 500 Output: Urine 250 300 Stool 650 500 Other: Voiding Method Urinal Urinal # Voids 1 # Bowel Movements 1 - Constitutional General appearance: Present: cooperative, no acute distress - Gastrointestinal Gastrointestinal Comment(s): Soft, nontender, nondistended, no rebound, no guarding, midline incision healing well, ostomy is pink and patent with thick output - Labs CBC & Chem 7: 06/28/20 03:31 07/01/20 05:38 Labs: Abnormal Lab Results - Last 24 Hours (Table) 06/30/20 06/30/20 07/01/20 Range/Units 16:34 21:28 05:38 Sodium 135 L (137-145) mmol/L Chloride 110 H (98-107) mmol/L Carbon Dioxide 17 L (22-30) mmol/L BUN 53 H (9-20) mg/dL Creatinine 1.57 H (0.66-1.25) mg/dL Glucose 157 H (74-99) mg/dL POC Glucose (mg/dL) 173 H 197 H (75-99) mg/dL Calcium 8.1 L (8.4-10.2) mg/dL 07/01/20 07/01/20 Range/Units 06:44 11:50 Sodium (137-145) mmol/L Chloride (98-107) mmol/L Carbon Dioxide (22-30) mmol/L BUN (9-20) mg/dL Creatinine (0.66-1.25) mg/dL Glucose (74-99) mg/dL POC Glucose (mg/dL) 147 H 160 H (75-99) mg/dL Calcium (8.4-10.2) mg/dL Assessment and Plan Plan: 69-year-old male, postoperative day #8 subtotal colectomy with ileostomy creation Continue to increase activity, patient is working with physical therapy Continue pain control Continue incentive spirometry After starting Lomotil, ostomy output has decreased. However, creatinine is noted to be elevated. This is likely secondary to dehydration. Continue IV fluids and medical recommendations. Medical management for IV fluids Progressing slowly Discharge planning has started. I did discuss the case with case management. Due to the patient's history of being a sex offender, the local rehab centers will not accept the patient. The patient states that he would like to go home with home health care and believes that he can take care of himself. I did inform the patient of the recommendations by occupational and physical therapy. He states he would like to go home with home health care. Once medically stable, we will set up discharge.
--- NOTE | 2020-07-01 13:59 | P.PN ---
Subjective Colonic stricture, secondary to Crohn's disease, status post subtotal colectomy and ileostomy formation 69-year-old white male patient who was admitted to the hospital on 06/22/2024 subtotal colectomy and ileostomy formation for history of colonic stricture secondary to Crohn's disease, and experienced hypotension in the postoperative period and was transferred to the intensive care unit, where he was fluid resuscitated, patient require stress doses of IV hydrocortisone 06/26/2020 patient seen and evaluated for follow-up in ICU; POD #4, status exploratory laparotomy which was, converted to open procedure, total colectomy with ileostomy. Patient remained stable, he is on supplemental oxygen at 3 L a pulse ox of 95%, hemodynamically patient is stable, as been working on incentive spirometer Midabdominal incision is clean dry and intact. Patient remains nothing by mouth except for ice chips. He is at abdominal incision and ileostomy are clean dry and intact, no output in the ileostomy He is on lactated Ringer's at a rate of 75 ML per hour, surgical services are following. Soft, no nausea vomiting or diarrhea. His labs have been reviewed, showing white blood cell count of 14.6, hemoglobin of 9.6, sodium is 137, potassium is 3.3, chloride is 103, CO2 33, B1 is 21 creatinine 0.75. Yesterday's chest x-ray shows atelectasis at the lung bases. Lung sounds revealed diminished breath sounds at the bases, patient remains on nebulized bronchodilators, no acute events overnight, his been awaiting a bed on general medical floor with telemetry 06/27/2020 Patient is seen and evaluated in ICU; denies any specific complaints Vital signs are stable with a temperature of 98.5, pulse 88, respiration 18 and blood pressure 137/72 with SpO2 of 94% on 2 L White blood count of 16.7, hemoglobin 10 and platelet count of 1 84,000. Sodium of 134, potassium 2.8, BUN/creatinine of 23/0.72 Patient has fair oral intake; has been switched to oral prednisone; patient has been cleared for transfer to general medical floor 06/28/2020 Patient is seen and evaluated in room at bedside; reports optimal pain control Vital signs remained stable with a temperature of 98.2, pulse 89, respiration 18 and blood pressure 134/80 Surgery is following and recommending to continue to increase activity with physical therapy, incentive spirometry as recommended and optimal pain control; patient is having return bowel function and diet is advanced to low-fat 06/29/2020 Patient is tolerating diet well, was started on low-fat diet. 06/30/2020 Patient is having significant output from the ostomy site because of which patient the creatinine went up a bit patient was started on IV fluids for today patient was started on Lomotil which will be continued. We'll monitor I's and O's. Patient's blood pressure is bit low because of some dehydration from excess output from the ostomy. 07/01/2020 Patient had a negative fluid balance of for around 1.4 L because of significant output from the ileostomy which actually slowed down now dose of Lomotil was increased by general surgery. We decided fluid balance patient went into renal failure with creatinine going up to 1.5. Considering his a elevated chloride patient will be switched to lactated Ringer's at 1 50 mL per hour. Constitutional: Denied any fatigue denied any fever. Cardio vascular: denied any chest pain, palpitations Gastrointestinal denied any nausea vomiting Pulmonary: Denied any shortness of breath cough Neurologic denied any new focal deficits All inpatient medications were reviewed and appropriate changes in these medications as dictated in the interval history and assessment and plan. Objective - Vital Signs Vital signs: Vital Signs Temp 97.5 F L 07/01/20 07:00 Pulse 87 07/01/20 07:00 Resp 18 07/01/20 07:00 BP 96/68 07/01/20 07:00 Pulse Ox 99 07/01/20 07:00 Intake & Output 06/30/20 07/01/20 07/01/20 18:59 06:59 18:59 Intake Total 500 Output Total 650 750 300 Balance -650 -750 200 Weight 99.9 kg Intake: Oral 500 Output: Urine 250 300 Stool 650 500 Other: Voiding Method Urinal Urinal # Voids 1 # Bowel Movements 1 - Exam PHYSICAL EXAMINATION: GENERAL: The patient is alert and oriented x3, not in any acute distress. Well developed, well nourished. HEENT: Pupils are round and equally reacting to light. EOMI. No scleral icterus. No conjunctival pallor. Normocephalic, atraumatic. No pharyngeal erythema. No thyromegaly. CARDIOVASCULAR: S1 and S2 present. No murmurs, rubs, or gallops. PULMONARY: Chest is clear to auscultation, no wheezing or crackles. ABDOMEN: Soft, nontender, nondistended, normoactive bowel sounds. No palpable organomegaly. Patient has ileostomy in place MUSCULOSKELETAL: No joint swelling or deformity. EXTREMITIES: No cyanosis, clubbing, or pedal edema. NEUROLOGICAL: Gross neurological examination did not reveal any focal deficits. SKIN: No rashes. - Labs CBC & Chem 7: 06/28/20 03:31 07/01/20 05:38 Labs: Abnormal Lab Results - Last 24 Hours (Table) 06/30/20 06/30/20 07/01/20 Range/Units 16:34 21:28 05:38 Sodium 135 L (137-145) mmol/L Chloride 110 H (98-107) mmol/L Carbon Dioxide 17 L (22-30) mmol/L BUN 53 H (9-20) mg/dL Creatinine 1.57 H (0.66-1.25) mg/dL Glucose 157 H (74-99) mg/dL POC Glucose (mg/dL) 173 H 197 H (75-99) mg/dL Calcium 8.1 L (8.4-10.2) mg/dL 07/01/20 07/01/20 Range/Units 06:44 11:50 Sodium (137-145) mmol/L Chloride (98-107) mmol/L Carbon Dioxide (22-30) mmol/L BUN (9-20) mg/dL Creatinine (0.66-1.25) mg/dL Glucose (74-99) mg/dL POC Glucose (mg/dL) 147 H 160 H (75-99) mg/dL Calcium (8.4-10.2) mg/dL Assessment and Plan Plan: Colonic stricture secondary to Crohn's disease status post subtotal colectomy and ileostomy creation. Patient is tolerating the soft diet very well at this time. -Mild hypotension and mild acute renal failure secondary to dehydration from significant output from ostomy patient's IV fluids will be increased to 1 50 mL per hour of lactated Ringer's. 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
[2020-07-01 17:04] LABS: Glucose,Whole Blood 288 mg/dL (75-99)
[2020-07-01 20:28] LABS: Glucose,Whole Blood 321 mg/dL (75-99)
[2020-07-02 03:59] VITALS: RESP 18
[2020-07-02] MEDS: LACTATED RINGERS 1,000 ML IV SCH ×3 (04:59→17:18)
[2020-07-02 06:47] LABS: Glucose,Whole Blood 126 mg/dL (75-99)
[2020-07-02] MEDS: INSULIN ASPART (NovoLOG) 100 UNIT/ML VIAL SQ SCH ×2 (07:09→12:15)
[2020-07-02 07:24] VITALS: BP 115/78; PULSE 81; TEMP 98.1
[2020-07-02] MEDS: SYMBICORT 160-4.5 MCG INHALER INHALATION PRN (08:03)
[2020-07-02] MEDS: PANTOPRAZOLE 40 MG/10 ML VIAL IV SCH (08:13)
[2020-07-02] MEDS: HEPARIN SODIUM,PORCINE 5,000 UNIT/ML 1 ML VIAL SQ SCH ×2 (08:13→17:18)
[2020-07-02] MEDS: DIPHENOX-ATROP 2.5-0.025 MG 1 EACH TAB PO SCH ×2 (08:13→17:18)
[2020-07-02] MEDS: FERROUS SULFATE 325 MG TAB PO SCH (08:13)
[2020-07-02] MEDS: lisinopriL 5 MG TAB PO SCH (08:13)
[2020-07-02] MEDS: MONTELUKAST 10 MG TAB PO SCH (08:13)
[2020-07-02] MEDS: FINASTERIDE 5 MG TAB PO SCH (08:13)
[2020-07-02] MEDS ORDERED: predniSONE 10 MG TAB PO SCH (09:00)
[2020-07-02 09:50] LABS: African American GFR (CKD) 89.9 (60.0-200.0); Non-African American GFR(CKD) 77.5 (60.0-200.0); Potassium 4.1 mmol/L (3.5-5.5)
--- NOTE | 2020-07-02 10:09 | XR ---
EXAMINATION TYPE: XR chest 1V DATE OF EXAM: 07/02/2020 CLINICAL HISTORY: Shortness of breath TECHNIQUE: Portable frontal view of the chest COMPARISON: 06/24/2020 chest radiograph FINDINGS: Redemonstrated elevation of the right hemidiaphragm. Cardiomegaly redemonstrated. Pulmonar y vasculature is normal. Minimal atelectasis at the left lung base, decreased from 06/24/2020. There i s no focal air space opacity, pleural effusion, or pneumothorax seen. The osseous structures are inta ct. IMPRESSION: Cardiomegaly. No acute cardiopulmonary process.
--- NOTE | 2020-07-02 10:33 | P.PN ---
Subjective Colonic stricture, secondary to Crohn's disease, status post subtotal colectomy and ileostomy formation 69-year-old white male patient who was admitted to the hospital on 06/22/2024 subtotal colectomy and ileostomy formation for history of colonic stricture secondary to Crohn's disease, and experienced hypotension in the postoperative period and was transferred to the intensive care unit, where he was fluid resuscitated, patient require stress doses of IV hydrocortisone 06/26/2020 patient seen and evaluated for follow-up in ICU; POD #4, status exploratory laparotomy which was, converted to open procedure, total colectomy with ileostomy. Patient remained stable, he is on supplemental oxygen at 3 L a pulse ox of 95%, hemodynamically patient is stable, as been working on incentive spirometer Midabdominal incision is clean dry and intact. Patient remains nothing by mouth except for ice chips. He is at abdominal incision and ileostomy are clean dry and intact, no output in the ileostomy He is on lactated Ringer's at a rate of 75 ML per hour, surgical services are following. Soft, no nausea vomiting or diarrhea. His labs have been reviewed, showing white blood cell count of 14.6, hemoglobin of 9.6, sodium is 137, potassium is 3.3, chloride is 103, CO2 33, B1 is 21 creatinine 0.75. Yesterday's chest x-ray shows atelectasis at the lung bases. Lung sounds revealed diminished breath sounds at the bases, patient remains on nebulized bronchodilators, no acute events overnight, his been awaiting a bed on general medical floor with telemetry 06/27/2020 Patient is seen and evaluated in ICU; denies any specific complaints Vital signs are stable with a temperature of 98.5, pulse 88, respiration 18 and blood pressure 137/72 with SpO2 of 94% on 2 L White blood count of 16.7, hemoglobin 10 and platelet count of 1 84,000. Sodium of 134, potassium 2.8, BUN/creatinine of 23/0.72 Patient has fair oral intake; has been switched to oral prednisone; patient has been cleared for transfer to general medical floor 06/28/2020 Patient is seen and evaluated in room at bedside; reports optimal pain control Vital signs remained stable with a temperature of 98.2, pulse 89, respiration 18 and blood pressure 134/80 Surgery is following and recommending to continue to increase activity with physical therapy, incentive spirometry as recommended and optimal pain control; patient is having return bowel function and diet is advanced to low-fat 06/29/2020 Patient is tolerating diet well, was started on low-fat diet. 06/30/2020 Patient is having significant output from the ostomy site because of which patient the creatinine went up a bit patient was started on IV fluids for today patient was started on Lomotil which will be continued. We'll monitor I's and O's. Patient's blood pressure is bit low because of some dehydration from excess output from the ostomy. 07/01/2020 Patient had a negative fluid balance of for around 1.4 L because of significant output from the ileostomy which actually slowed down now dose of Lomotil was increased by general surgery. We decided fluid balance patient went into renal failure with creatinine going up to 1.5. Considering his a elevated chloride patient will be switched to lactated Ringer's at 1 50 mL per hour. 07/02/2020 Patient the creatinine improved patient ileostomy output has gone down. I did d o the medication reconciliation patient is medically stable to be discharged patient need to check his blood sugars because of borderline kidney function I discontinued metformin can be started if it is kidney function improves and if needed. Constitutional: Denied any fatigue denied any fever. Cardio vascular: denied any chest pain, palpitations Gastrointestinal denied any nausea vomiting Pulmonary: Denied any shortness of breath cough Neurologic denied any new focal deficits All inpatient medications were reviewed and appropriate changes in these medications as dictated in the interval history and assessment and plan. Objective - Vital Signs Vital signs: Vital Signs Temp 98.1 F 07/02/20 07:00 Pulse 81 07/02/20 07:00 Resp 18 07/02/20 07:00 BP 115/78 07/02/20 07:00 Pulse Ox 96 07/02/20 07:00 Intake & Output 07/01/20 07/02/20 07/02/20 18:59 06:59 18:59 Intake Total 500 480 Output Total 730 300 Balance -230 180 Intake: Oral 500 480 Output: Urine 650 Stool 80 300 Other: Voiding Method Urinal Urinal # Voids 3 2 - Exam PHYSICAL EXAMINATION: GENERAL: The patient is alert and oriented x3, not in any acute distress. Well developed, well nourished. HEENT: Pupils are round and equally reacting to light. EOMI. No scleral icterus. No conjunctival pallor. Normocephalic, atraumatic. No pharyngeal erythema. No thyromegaly. CARDIOVASCULAR: S1 and S2 present. No murmurs, rubs, or gallops. PULMONARY: Chest is clear to auscultation, no wheezing or crackles. ABDOMEN: Soft, nontender, nondistended, normoactive bowel sounds. No palpable organomegaly. Patient has ileostomy in place MUSCULOSKELETAL: No joint swelling or deformity. EXTREMITIES: No cyanosis, clubbing, or pedal edema. NEUROLOGICAL: Gross neurological examination did not reveal any focal deficits. SKIN: No rashes. - Labs CBC & Chem 7: 06/28/20 03:31 07/02/20 06:17 Labs: Abnormal Lab Results - Last 24 Hours (Table) 07/01/20 07/01/20 07/01/20 Range/Units 05:38 11:50 17:02 Sodium 135 L (137-145) mmol/L Chloride 110 H (98-107) mmol/L Carbon Dioxide 17 L (22-30) mmol/L BUN 53 H (9-20) mg/dL Creatinine 1.57 H (0.66-1.25) mg/dL BUN/Creatinine Ratio (12.00-20.00) Ratio Glucose 157 H (74-99) mg/dL POC Glucose (mg/dL) 160 H 288 H (75-99) mg/dL Calcium 8.1 L (8.4-10.2) mg/dL 07/01/20 07/02/20 07/02/20 Range/Units 20:27 06:17 06:45 Sodium (137-145) mmol/L Chloride (98-107) mmol/L Carbon Dioxide (22-30) mmol/L BUN 39.0 H (9-20) mg/dL Creatinine (0.66-1.25) mg/dL BUN/Creatinine Ratio 39.00 H (12.00-20.00) Ratio Glucose 136 H (74-99) mg/dL POC Glucose (mg/dL) 321 H 126 H (75-99) mg/dL Calcium 8.0 L (8.4-10.2) mg/dL Assessment and Plan Plan: Colonic stricture secondary to Crohn's disease status post subtotal colectomy and ileostomy creation. Patient is tolerating the soft diet very well at this time. -Mild hypotension and mild acute renal failure secondary to dehydration from significant output from ostomy, patient's creatinine improved output has gone down, patient is an antidiarrheal medications Most likely acute blood loss anemia secondary to surgery Hyperlipidemia Hypertension: Patient's beta alayna was not continued here, patient is hypotensive. 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
[2020-07-02 11:36] LABS: Glucose,Whole Blood 187 mg/dL (75-99)
--- NOTE | 2020-07-02 12:23 | P.PN ---
Subjective Progress Note Date: 07/02/20 Patient doing well, less output from ileostomy, kideny function improved. No complaints today Objective - Vital Signs Vital signs: Vital Signs Temp 98.1 F 07/02/20 07:00 Pulse 81 07/02/20 07:00 Resp 18 07/02/20 07:00 BP 115/78 07/02/20 07:00 Pulse Ox 96 07/02/20 07:00 Intake & Output 07/01/20 07/02/20 07/02/20 18:59 06:59 18:59 Intake Total 500 480 Output Total 730 300 Balance -230 180 Intake: Oral 500 480 Output: Urine 650 Stool 80 300 Other: Voiding Method Urinal Urinal # Voids 3 2 - Constitutional General appearance: Present: cooperative - Cardiovascular Rhythm: regular - Gastrointestinal Gastrointestinal Comment(s): S/NT Incision CDI ileostomy patent with output in bag - Psychiatric Psychiatric: Present: A&O x's 3 - Labs CBC & Chem 7: 06/28/20 03:31 07/02/20 06:17 Labs: Abnormal Lab Results - Last 24 Hours (Table) 07/01/20 07/01/20 07/01/20 Range/Units 05:38 17:02 20:27 Sodium 135 L (137-145) mmol/L Chloride 110 H (98-107) mmol/L Carbon Dioxide 17 L (22-30) mmol/L BUN 53 H (9-20) mg/dL Creatinine 1.57 H (0.66-1.25) mg/dL BUN/Creatinine Ratio (12.00-20.00) Ratio Glucose 157 H (74-99) mg/dL POC Glucose (mg/dL) 288 H 321 H (75-99) mg/dL Calcium 8.1 L (8.4-10.2) mg/dL 07/02/20 07/02/20 07/02/20 Range/Units 06:17 06:45 11:29 Sodium (137-145) mmol/L Chloride (98-107) mmol/L Carbon Dioxide (22-30) mmol/L BUN 39.0 H (9-20) mg/dL Creatinine (0.66-1.25) mg/dL BUN/Creatinine Ratio 39.00 H (12.00-20.00) Ratio Glucose 136 H (74-99) mg/dL POC Glucose (mg/dL) 126 H 187 H (75-99) mg/dL Calcium 8.0 L (8.4-10.2) mg/dL Assessment and Plan Assessment: Crohns dx s/p ex-lap and ileostomy Highoutput ileostomy Plan: Continue with bowel regimen as given in the hospital to control the high output ileostomy. If patient begins to have more than one to 1-1/2 L output a day he should return to hospital for IV fluid hydration. Patient will follow-up with Dr. Phan as an outpatient. He is stable for discharge today from a surgical standpoint
[2020-07-03] MEDS ORDERED: PANTOPRAZOLE 40 MG TABLET PO SCH (09:00)
== END 2020-07-02 17:11 | disposition home health service (06) | DRG 329 ==
LOC: 2ORMAIN 10:16 → EDSTATUS 13:00 → 2SICU 18:37 → 4SSUR 06-29 00:18
PROVIDERS: ADMIT Surgery; ATTEND Surgery
PROC: 05HM33Z Insertion of Infusion Device into Right Internal Jugular Vein, Percutaneous Approach (ICD-10-PCS; 2020-06-22)
PROC: 3E043XZ Introduction of Vasopressor into Central Vein, Percutaneous Approach (ICD-10-PCS; 2020-06-22)
PROC: 0DTG0ZZ Resection of Left Large Intestine, Open Approach (ICD-10-PCS; principal; 2020-06-22 13:00)
PROC: 3E00XMZ Introduction of Pigment into Skin and Mucous Membranes, External Approach (ICD-10-PCS; principal; 2020-06-22 13:00)
PROC: 0D1B0Z4 Bypass Ileum to Cutaneous, Open Approach (ICD-10-PCS; principal; 2020-06-22 13:00)
PROC: 0DJD8ZZ Inspection of Lower Intestinal Tract, Via Natural or Artificial Opening Endoscopic (ICD-10-PCS; principal; 2020-06-22 13:00)
DX: K50.112 Crohn's disease of large intestine with intestinal obstruction (principal); J96.01 Acute respiratory failure with hypoxia; N17.9 Acute kidney failure, unspecified; I42.8 Other cardiomyopathies; D62 Acute posthemorrhagic anemia; E27.40 Unspecified adrenocortical insufficiency; J98.11 Atelectasis; I11.9 Hypertensive heart disease without heart failure; I95.89 Other hypotension; J44.9 Chronic obstructive pulmonary disease, unspecified; E11.9 Type 2 diabetes mellitus without complications; E86.0 Dehydration; E78.5 Hyperlipidemia, unspecified; I69.312 Visuospatial deficit and spatial neglect following cerebral infarction; D72.829 Elevated white blood cell count, unspecified; R40.2143 Coma scale, eyes open, spontaneous, at hospital admission; R40.2363 Coma scale, best motor response, obeys commands, at hospital admission; R40.2253 Coma scale, best verbal response, oriented, at hospital admission; G89.29 Other chronic pain; M54.9 Dorsalgia, unspecified; N40.0 Benign prostatic hyperplasia without lower urinary tract symptoms; T38.0X5A Adverse effect of glucocorticoids and synthetic analogues, initial encounter; H91.90 Unspecified hearing loss, unspecified ear; I45.6 Pre-excitation syndrome; M19.90 Unspecified osteoarthritis, unspecified site; Z53.31 Laparoscopic surgical procedure converted to open procedure; Z79.82 Long term (current) use of aspirin; Z79.52 Long term (current) use of systemic steroids; Z79.51 Long term (current) use of inhaled steroids; Z79.84 Long term (current) use of oral hypoglycemic drugs; Z79.899 Other long term (current) drug therapy; Z87.891 Personal history of nicotine dependence; Z77.090 Contact with and (suspected) exposure to asbestos; Z87.440 Personal history of urinary (tract) infections; Z87.442 Personal history of urinary calculi; Z86.19 Personal history of other infectious and parasitic diseases; Z86.14 Personal history of Methicillin resistant Staphylococcus aureus infection; Z87.39 Personal history of other diseases of the musculoskeletal system and connective tissue; Z90.89 Acquired absence of other organs; Z87.81 Personal history of (healed) traumatic fracture; Z98.890 Other specified postprocedural states; Z82.49 Family history of ischemic heart disease and other diseases of the circulatory system; Z83.3 Family history of diabetes mellitus
CPT/HCPCS: 71045; 80048; 80053; 83605; 83735; 84100; 84132; 85025; 85027; 85610; 86850; 86900; 86901; 88309; 94640

== ENCOUNTER 2020-07-07 17:02 | Inpatient (IN) | payer OTHER, MEDICARE ==
[2020-07-07] MEDS ORDERED: SODIUM CHLORIDE 0.9% 1,000 ML IV STA (18:25)
--- NOTE | 2020-07-07 18:30 | ED ---
Abdominal Pain HPI - General Chief Complaint: Abdominal Pain Stated Complaint: Ostomy repair Time Seen by Provider: 07/07/20 18:08 Source: patient, RN/MD, RN notes reviewed Mode of arrival: ambulatory Limitations: no limitations - History of Present Illness Initial Comments: This a 69-year-old male who is status post a colostomy recently who presents wi th complaints of the wound opening up. He denies any fevers chills or sweats he is a decreased oral intake over last couple days he is drinking water but not eating much food he was seen by the home health nurse and sent here for evaluation. He denies any other complaints. MD Complaint: abdominal pain, other - Related Data Home Medications Medication Instructions Recorded Confirmed Aspirin 325 mg PO DAILY 06/17/17 06/22/20 glyBURIDE [Diabeta] 10 mg PO QAM 04/09/18 06/22/20 Acetaminophen Tab [Tylenol] 650 mg PO DIRECTED PRN 02/14/19 06/22/20 predniSONE [Deltasone] 15 mg PO DAILY 11/29/19 06/22/20 Budesonide-Formot 160-4.5 Mcg 2 puff INHALATION BID PRN 06/11/20 06/22/20 [Symbicort 160-4.5 Mcg Inhaler] Finasteride [Proscar] 5 mg PO DAILY 06/11/20 06/22/20 Montelukast [Singulair] 10 mg PO DAILY 06/11/20 06/22/20 Multivit-Min/FA/Lycopen/Lutein 1 each PO DAILY 06/11/20 06/22/20 [Centrum Silver Tablet] Previous Rx's Medication Instructions Recorded lisinopriL [Zestril] 5 mg PO QAM #0 06/30/20 Diphenoxylate HCl/Atropine 1 tab PO TID 30 Days #90 tab 07/02/20 [Lomotil 2.5-0.025 mg Tablet] predniSONE 10 mg PO DAILY tab 07/02/20 Allergies Allergy/AdvReac Type Severity Reaction Status Date / Time No Known Allergies Allergy Verified 06/22/20 11:55 Review of Systems ROS Statement: Those systems with pertinent positive or pertinent negative responses have been documented in the HPI. ROS Other: All systems not noted in ROS Statement are negative. 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 OR 06/16/20 postponed d/t VT on arrival, cleared by Cardiology. History of Any Multi-Drug Resistant Organisms: C-DIFF, MRSA Date of last positivie culture/infection: January 2015 (At [facility] per patient) MDRO Source:: Right Ankle and Back (per patient) Past Surgical History: Adenoidectomy, Bowel Resection, Orthopedic Surgery, Tonsillectomy Additional Past Surgical History / Comment(s): 01/2015 Laminectomy, discectomy with decompression L5-S1, I&D epidural abscess L5-S1 (STATED HAD MULTIPLE BX- BENIGN)and aspiration R ankle, 02/2015 I&D L5-S1 at [place], Yearly colonoscopy . left wrist surgically repaired after fx-PLATE/SCREW. RT HIP TEVIN/SCREWS. Past Anesthesia/Blood Transfusion Reactions: No Reported Reaction Additional Past Anesthesia/Blood Transfusion Reaction / Comment(s): Pt states he recieved blood 02/2015 at [facility] without reaction. Past Psychological History: No Psychological Hx Reported Smoking Status: Never smoker Past Alcohol Use History: None Reported Past Drug Use History: None Reported - Past Family History Father Family Medical History: Myocardial Infarction (SD) Additional Family Medical History / Comment(s): Father of massive SD. Mother Family Medical History: Diabetes Mellitus General Exam - General Exam Comments Initial Comments: This is a well-developed well-nourished awake alert oriented 3 male Limitations: no limitations General appearance: alert, in no apparent distress Head exam: Present: atraumatic, normocephalic, normal inspection Eye exam: Present: normal appearance, PERRL, EOMI. Absent: scleral icterus, conjunctival injection, periorbital swelling ENT exam: Present: normal exam, mucous membranes moist Neck exam: Present: normal inspection. Absent: tenderness, meningismus, lymphadenopathy Respiratory exam: Present: normal lung sounds bilaterally. Absent: respiratory distress, wheezes, rales, rhonchi, stridor Cardiovascular Exam: Present: normal rhythm, tachycardia, normal heart sounds. Absent: systolic murmur, diastolic murmur, rubs, gallop, clicks GI/Abdominal exam: Present: soft, normal bowel sounds, other (Evidence of wound dehiscence to the distal approximately 20% of the midline incision stool was noted to be in the open area. There does appear to be good granulation tissue however no active bleeding. There is some erythema seen lateral to this area extending to the flank does appear to be somewha). Absent: distended, t enderness, guarding, rebound, rigid Extremities exam: Present: normal inspection, full ROM, normal capillary refill. Absent: tenderness, pedal edema, joint swelling, calf tenderness Back exam: Present: normal inspection Neurological exam: Present: alert, oriented X3, CN II-XII intact Psychiatric exam: Present: normal affect, normal mood Skin exam: Present: warm, dry, intact, normal color. Absent: rash Course Vital Signs 07/07/20 07/07/20 17:24 20:03 Temperature 98.1 F Pulse Rate 139 H 125 H Respiratory 18 20 Rate Blood Pressure 122/79 140/102 O2 Sat by Pulse 95 94 L Oximetry - Reevaluation(s) Reevaluation #1: 07/07/20 20:56 Patient's heart rate did improve after IV fluids. He still has no evidence of chest pain or shortness of breath. She also denies any fevers chills or sweats. Medical Decision Making - Medical Decision Making I did discuss findings with the patient as well as family earlier and initially had did discuss case with Dr. Phan and with Dr. Archuleta and Dr. Busby. Patient does demonstrate evidence of early cellulitis to the lateral aspect of the lower abdominal integument. Patient will be started on antibiotics for this. Patient also has evidence of an STEMI with elevated troponin minimal evidence of EKG changes he does demonstrate some possibly rate related subendocardial findings. Patient will be placed on heparin and nitroglycerin when necessary and echocardiogram in a.m. - Lab Data Result diagrams: 07/07/20 18:30 07/07/20 18:30 Lab Results 07/07/20 07/07/20 07/07/20 Range/Units 18:30 18:30 18:30 WBC 18.9 H (3.8-10.6) k/uL RBC 4.42 (4.30-5.90) m/uL Hgb 13.6 D (13.0-17.5) gm/dL Hct 43.0 (39.0-53.0) % MCV 97.3 (80.0-100.0) fL MCH 30.8 (25.0-35.0) pg MCHC 31.6 (31.0-37.0) g/dL RDW 14.0 (11.5-15.5) % Plt Count 515 H D (150-450) k/uL Neutrophils % 81 % Lymphocytes % 9 % Monocytes % 7 % Eosinophils % 1 % Basophils % 1 % Neutrophils # 15.4 H (1.3-7.7) k/uL Lymphocytes # 1.7 (1.0-4.8) k/uL Monocytes # 1.3 H (0-1.0) k/uL Eosinophils # 0.2 (0-0.7) k/uL Basophils # 0.2 (0-0.2) k/uL Hypochromasia Moderate Sodium 137 (137-145) mmol/L Potassium 4.3 (3.5-5.1) mmol/L Chloride 99 (98-107) mmol/L Carbon Dioxide 28 (22-30) mmol/L Anion Gap 10 mmol/L BUN 15 (9-20) mg/dL Creatinine 0.93 (0.66-1.25) mg/dL Est GFR (CKD-EPI)AfAm >90 (>60 ml/min/1.73 sqM) Est GFR (CKD-EPI)NonAf 85 (>60 ml/min/1.73 sqM) Glucose 332 H (74-99) mg/dL Calcium 9.3 (8.4-10.2) mg/dL Magnesium 1.5 L (1.6-2.3) mg/dL Total Bilirubin 0.6 (0.2-1.3) mg/dL AST 55 (17-59) U/L ALT 32 (4-49) U/L Alkaline Phosphatase 143 H (38-126) U/L Creatine Kinase 107 (55-170) U/L Troponin I (0.000-0.034) ng/mL Total Protein 6.9 (6.3-8.2) g/dL Albumin 3.4 L (3.5-5.0) g/dL 10/13/20 Range/Units 18:30 WBC (3.8-10.6) k/uL RBC (4.30-5.90) m/uL Hgb (13.0-17.5) gm/dL Hct (39.0-53.0) % MCV (80.0-100.0) fL MCH (25.0-35.0) pg MCHC (31.0-37.0) g/dL RDW (11.5-15.5) % Plt Count (150-450) k/uL Neutrophils % % Lymphocytes % % Monocytes % % Eosinophils % % Basophils % % Neutrophils # (1.3-7.7) k/uL Lymphocytes # (1.0-4.8) k/uL Monocytes # (0-1.0) k/uL Eosinophils # (0-0.7) k/uL Basophils # (0-0.2) k/uL Hypochromasia Sodium (137-145) mmol/L Potassium (3.5-5.1) mmol/L Chloride (98-107) mmol/L Carbon Dioxide (22-30) mmol/L Anion Gap mmol/L BUN (9-20) mg/dL Creatinine (0.66-1.25) mg/dL Est GFR (CKD-EPI)AfAm (>60 ml/min/1.73 sqM) Est GFR (CKD-EPI)NonAf (>60 ml/min/1.73 sqM) Glucose (74-99) mg/dL Calcium (8.4-10.2) mg/dL Magnesium (1.6-2.3) mg/dL Total Bilirubin (0.2-1.3) mg/dL AST (17-59) U/L ALT (4-49) U/L Alkaline Phosphatase (38-126) U/L Creatine Kinase (55-170) U/L Troponin I 2.910 H* (0.000-0.034) ng/mL Total Protein (6.3-8.2) g/dL Albumin (3.5-5.0) g/dL - EKG Data -: EKG Interpreted by Me EKG Comments: Sinus tachycardia 138. Interval 140 QRS duration 64 QT since QTC 264/[address] configuration - Radiology Data Radiology results: report reviewed (Imaging showed no evidence of acute infiltrate), image reviewed Critical Care Time Critical Care Time: Yes Total Critical Care Time: 39 Critical Care Time: Critical care time includes initial presentation with history physical labs x- rays multiple reevaluation the patient discussed with patient and family regarding findings discussion with multiple physicians review of old charting available admission orders and documentation of the above Disposition Clinical Impression: Non-STEMI (non-ST elevated myocardial infarction), Tachycardia, Cellulitis, Wound dehiscence, Hypomagnesemia, Dehydration Disposition: ADMITTED IP TO THIS HOSP Condition: Fair Referrals: [facility],Clinic [Primary Care Provider] - 1-2 days
[2020-07-07 19:06] LABS: ALT 32 U/L (4-49); AST 55 U/L (17-59); African American GFR (CKD) >90 (>60 ml/min/1.73 sqM); Albumin 3.4 g/dL (3.5-5.0); Alkaline Phosphatase 143 U/L (38-126); Anion Gap 10 mmol/L; Blood Urea Nitrogen 15 mg/dL (9-20); Calcium 9.3 mg/dL (8.4-10.2); Carbon Dioxide 28 mmol/L (22-30); Chloride 99 mmol/L (98-107); Glucose 332 mg/dL (74-99); Non-African American GFR(CKD) 85 (>60 ml/min/1.73 sqM); Potassium 4.3 mmol/L (3.5-5.1); Sodium 137 mmol/L (137-145); Total Bilirubin 0.6 mg/dL (0.2-1.3); Total Protein 6.9 g/dL (6.3-8.2)
[2020-07-07 19:15] LABS: Basophils # (A) 0.2 k/uL (0-0.2); Basophils % (A) 1 %; Eosinophils # (A) 0.2 k/uL (0-0.7); Eosinophils % (A) 1 %; Hypochromasia Moderate; Lymphocytes # (A) 1.7 k/uL (1.0-4.8); Lymphocytes % (A) 9 %; MCH 30.8 pg (25.0-35.0); MCHC 31.6 g/dL (31.0-37.0); MCV 97.3 fL (80.0-100.0); Mean Platelet Volume 7.6; Monocytes # (A) 1.3 k/uL (0-1.0); Monocytes % (A) 7 %; Neutrophils # (A) 15.4 k/uL (1.3-7.7); Neutrophils % (A) 81 %; RBC 4.42 m/uL (4.30-5.90); WBC 18.9 k/uL (3.8-10.6)
[2020-07-07 19:18] LABS: HGB 13.6 gm/dL (13.0-17.5); Platelet Count 515 k/uL (150-450)
[2020-07-07 19:30] LABS: Magnesium 1.5 mg/dL (1.6-2.3)
--- NOTE | 2020-07-07 20:31 | XR ---
EXAMINATION TYPE: XR chest 2V DATE OF EXAM: 07/07/2020 COMPARISON: 07/02/2020 HISTORY: Short of breath TECHNIQUE: 2 views FINDINGS: There is some elevation of the right diaphragm. There is no heart failure. There are chest leads. Costophrenic angles are fairly clear. IMPRESSION: chronic elevation of the right diaphragm unchanged compared to recent exam. No heart fa ilure.
[2020-07-07] MEDS ORDERED: NITROGLYCERIN SL TABS 0.4 MG TAB SUBLINGUAL PRN (21:00)
[2020-07-07] MEDS ORDERED: HEPARIN SODIUM,PORCINE 5,000 UNIT/ML 1 ML VIAL IV ONE (21:00)
[2020-07-07 21:28] LABS: Glucose,Whole Blood 310 mg/dL (75-99)
[2020-07-07] MEDS ORDERED: INSULIN ASPART (NovoLOG) 100 UNIT/ML VIAL SQ ONE (21:36)
[2020-07-07] MEDS: HEPARIN SOD,PORK IN 0.45% NACL 25,000 UNIT in 0.45% NACL 1 250ML.BAG IV SCH (21:40)
[2020-07-07] MEDS: MAGNESIUM SULFATE-D5W PMX 1 GM in DEXTROSE/WATER 1 100ML.BAG IVPB SCH ×2 (21:42→23:56)
[2020-07-07] MEDS: SODIUM CHLORIDE 0.9% 1,000 ML IV SCH (21:43)
[2020-07-08 05:48] LABS: Cholesterol 153 mg/dL (<200); HDL Cholesterol 39 mg/dL (40-60); LDL Cholesterol,Calculated 86 mg/dL (0-99); Triglycerides 139 mg/dL (<150)
[2020-07-08 06:15] LABS: Glucose,Whole Blood 216 mg/dL (75-99)
[2020-07-08] MEDS: INSULIN ASPART (NovoLOG) 100 UNIT/ML VIAL SQ SCH ×4 (06:39→22:14)
[2020-07-08] MEDS: lisinopriL 5 MG TAB PO SCH (07:51)
[2020-07-08] MEDS: ASPIRIN 325 MG TAB PO SCH ×2 (07:51→11:28)
[2020-07-08] MEDS: MULTIVITAMINS, THERA 1 EACH TAB PO SCH (07:51)
[2020-07-08] MEDS: MONTELUKAST 10 MG TAB PO SCH (07:51)
[2020-07-08] MEDS: SODIUM CHLORIDE 0.9% 1,000 ML IV SCH ×2 (07:51→22:14)
[2020-07-08] MEDS: FINASTERIDE 5 MG TAB PO SCH (07:51)
[2020-07-08] MEDS: DIPHENOX-ATROP 2.5-0.025 MG 1 EACH TAB PO SCH ×3 (07:51→22:14)
[2020-07-08] MEDS: SYMBICORT 160-4.5 MCG INHALER INHALATION PRN (08:20)
--- NOTE | 2020-07-08 10:57 | ECHOF ---
Referral Reason:NSTEMI MEASUREMENTS -------- HEIGHT: 180.3 cm WEIGHT: 88.5 kg BP: 109/81 MV E Daquan: 0.37 m/s MV DecT: 122 ms MV A Daquan: 0.54 m/s MV E/A Ratio: 0.68 AR PHT: 572 ms RAP: 5.00 mmHg RVSP: 10.74 mmHg FINDINGS -------- Sinus rhythm with extra systolic beats. This was a technically difficult study with suboptimal views. Overall left ventricular systolic function is mild-moderately impaired with, an EF between 40 - 45 %. Mid anterior LV wall motion is hypokinetic. Mid anteroseptal LV wall motion is hypokinetic. Apical anterior LV wall motion is hypokinetic. Apical septum LV wall motion is hypokinetic. The RV was not well visualized. The left atrium was not well visualized. The right atrium was not well visualized. Lumason used The aortic valve was not well visualized. The mitral valve was not well visualized. The tricuspid valve was not well visualized. The pulmonic valve was not well visualized. There is no pericardial effusion. CONCLUSIONS -------- 1. Overall left ventricular systolic function is mild-moderately impaired with, an EF between 40 - 45 %. 2. Mid anterior LV wall motion is hypokinetic. 3. Mid anteroseptal LV wall motion is hypokinetic. 4. Apical anterior LV wall motion is hypokinetic. 5. Apical septum LV wall motion is hypokinetic. 6. The aortic valve was not well visualized. 7. There is no pericardial effusion. CAR LOADER: Brianne Daley RDCS
--- NOTE | 2020-07-08 11:09 | P.HPIM ---
History of Present Illness this is a pleasant 69 years old male with past medical history of asthma, CVA/TIA, diabetes mellitus, hearing disorder, hyperlipidemia, hypertension, chronic back pain, Crohn's disease and he is steroid dependent. He was recently discharge by surgical service for colonic stricture secondary to his Crohn's disease, he underwent subtotal colectomy and ileostomy formation. patient presents this time because his ostomy stitches opened up over the weekend spontaneously. And on presentation patient was found to have elevated cardiac enzymes However patient denies any symptoms he denies chest pain or dyspnea or abdominal pain, no palpitation or dizziness or coughing or headache or weakness or change in urine or bowel habits. He denies fever. He walks a little bit which is his baseline as he states he denies smoking, alcohol or ILLICIT drugs On examination there is some mild erythema and the stitches side and of the lowe r side of the surgical wound there is a superficial ulcer about 1 cm with some purulent discharge at the base close to the ostomy back. Ostomy bag has semisolid yellow-brown stool she is tachycardic at 122,postop vitals are stable.she has leukocytosis of 18.9 K, no some when she was discharge was 14-16 K.troponin is elevated 2.9, 4.4 and 5.6. BMP and liver enzymes are not elevated. EKG shows sinus tachycardia at 138 with a slight lateral ST depression and change, chest x-ray:no heart failure in the emergency roompatient was started on heparin drip and aspirin 325 mg daily and normal saline at 80 mL per hour elevated troponin, suspicious for non-STEMI surgical abdominal wound infection recent history of Colonic stricture secondary to Crohn's disease status post subtotal colectomy and ileostomy formation Hyperlipidemia Hypertension Transient hypotensive, improved with fluids and steroids History of CVA/TIA with some residual blood test Hearing difficulty Chronic back pain Leukocytosis secondary to steroid effect and reactive from surgery this is a pleasant 69 years old male who presents with surgical wound infection and high troponin.Continue with heparin drip and aspirin. Cardiology consult .Consent wound culture sample and started the patient on Unasyn Labs and medication were reviewed.. Continue same treatment. Continue with symptomatic treatment. Resume home medication. Monitor lytes and vitals. DVT and GI prophylaxis. Further recommendationsas per clinical course of the patient DVT prophylaxis: heparin GI Prophylaxis: Pepcid Review of Systems CONSTITUTIONAL: No fever, no malaise, no fatigue. HEENT: No recent visual problems or hearing problems. Denied any sore throat. CARDIOVASCULAR: No orthopnea, PND, no palpitations, no syncope. PULMONARY: No shortness of breath, no cough, no hemoptysis. GASTROINTESTINAL: No diarrhea, no nausea, no vomiting, no abdominal pain. Normoactive bowel sounds. NEUROLOGICAL: No headaches, no weakness, no numbness. HEMATOLOGICAL: Denies any bleeding or petechiae. GENITOURINARY: Denies any burning micturition, frequency, or urgency. MUSCULOSKELETAL/RHEUMATOLOGICAL: Denies any joint pain, swelling, or any muscle pain. ENDOCRINE: Denies any polyuria or polydipsia. 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 History of Any Multi-Drug Resistant Organisms: C-DIFF, MRSA Date of last positivie culture/infection: January 2015 (At [facility] per patient) MDRO Source:: Right Ankle and Back (per patient) Past Surgical History: Adenoidectomy, Bowel Resection, Orthopedic Surgery, Tonsillectomy Additional Past Surgical History / Comment(s): 01/2015 Laminectomy, discectomy with decompression L5-S1, I&D epidural abscess L5-S1 (STATED HAD MULTIPLE BX- BENIGN)and aspiration R ankle, 02/2015 I&D L5-S1 at [facility], Yearly colonoscopy . left wrist surgically repaired after fx-PLATE/SCREW. RT HIP TEVIN/SCREWS. Past Anesthesia/Blood Transfusion Reactions: No Reported Reaction Additional Past Anesthesia/Blood Transfusion Reaction / Comment(s): Pt states he recieved blood 02/2015 at [facility] without reaction. Past Psychological History: No Psychological Hx Reported Additional Psychological History / Comment(s): Pt resideswith daughter. Drives, has dogs. Smoking Status: Former smoker, Never smoker Past Alcohol Use History: None Reported Additional Past Alcohol Use History / Comment(s): Patient has a history of smoking marijuana half ounce per day and quit in 1998. He denies any alcohol use SINCE 1975. Past Drug Use History: None Reported Additional Drug Use History / Comment(s): No current use. - Past Family History Father Family Medical History: Myocardial Infarction ([place]) Additional Family Medical History / Comment(s): Father of massive [place]. Mother Family Medical History: Diabetes Mellitus Medications and Allergies Home Medications Medication Instructions Recorded Confirmed Type Aspirin 325 mg PO DAILY 06/17/17 07/07/20 History Acetaminophen Tab [Tylenol] 650 mg PO DIRECTED PRN 02/14/19 07/07/20 History Budesonide-Formot 160-4.5 Mcg 2 puff INHALATION RT-BID PRN 06/11/20 07/07/20 History [Symbicort 160-4.5 Mcg Inhaler] Finasteride [Proscar] 5 mg PO DAILY 06/11/20 07/07/20 History Multivit-Min/FA/Lycopen/Lutein 1 each PO DAILY 06/11/20 07/07/20 History [Centrum Silver Tablet] Diphenoxylate HCl/Atropine 1 tab PO TID 30 Days #90 tab 07/02/20 07/07/20 Rx [Lomotil 2.5-0.025 mg Tablet] Fexofenadine HCl [Dara Allergy] 60 mg PO DAILY 07/07/20 07/07/20 History carvediloL [Coreg] 3.125 mg PO BID 07/07/20 07/07/20 History glyBURIDE [Diabeta] 5 mg PO BID 07/07/20 07/07/20 History lisinopriL [Zestril] 10 mg PO DAILY 07/07/20 07/07/20 History predniSONE 15 mg PO DAILY MDD 25mg PRN 07/07/20 07/07/20 History Allergies Allergy/AdvReac Type Severity Reaction Status Date / Time No Known Allergies Allergy Verified 07/07/20 21:45 Physical Exam Vitals: Vital Signs Temp Pulse Pulse Resp BP BP Pulse Ox 07/08/20 07:57 122 H 07/08/20 07:41 98.7 F 122 H 18 117/77 94 L 07/08/20 04:00 120 H 18 109/81 94 L 07/08/20 00:00 98.4 F 124 H 20 123/80 94 L 07/07/20 22:38 99.2 F 115 H 22 118/82 94 L 07/07/20 20:58 129 H 24 117/105 96 07/07/20 20:03 125 H 20 140/102 94 L 07/07/20 17:24 98.1 F 139 H 18 122/79 95 Intake and Output 07/07/20 07/08/20 07/08/20 22:59 06:59 14:59 Intake Total 78.833 Output Total 500 50 Balance -421.167 -50 Intake: Intake, IV Titration 78.833 Amount Heparin Sod,Pork in 0.45% 78.833 NaCl 25,000 unit In 0.45 % NaCl 1 250ml.bag @ 10. 35 UNITS/KG/HR 10 mls/hr IV .Q24H [facility] Rx#: [id number] Output: Urine 50 Stool 500 Other: Voiding Method Urinal Urinal Weight 96.615 kg 88.5 kg GENERAL: The patient is alert and oriented x3, not in any acute distress. Well developed, well nourished. HEENT: Pupils are round and equally reacting to light. EOMI. No scleral icterus. No conjunctival pallor. Normocephalic, atraumatic. No pharyngeal erythema. No thyromegaly. CARDIOVASCULAR: S1 and S2 present. No murmurs, rubs, or gallops. PULMONARY: Chest is clear to auscultation, no wheezing or crackles. -ABDOMEN: Soft, nontender, nondistended, normoactive bowel sounds. No palpable organomegaly. On examination there is some mild erythema and the stitches side and of the lower side of the surgical wound there is a superficial ulcer about 1 cm with some purulent discharge at the base close to the ostomy back. Ostomy bag has semisolid yellow-brown stool MUSCULOSKELETAL: No joint swelling or deformity. EXTREMITIES: No cyanosis, clubbing, or pedal edema. NEUROLOGICAL: Gross neurological examination did not reveal any focal deficits. SKIN: No rashes. No petechiae Results CBC & Chem 7: 07/07/20 18:30 07/07/20 18:30 Labs: Abnormal Lab Results - Last 24 Hours (Table) 07/07/20 07/07/20 07/07/20 Range/Units 18:30 18:30 18:30 WBC 18.9 H (3.8-10.6) k/uL Plt Count 515 H D (150-450) k/uL Neutrophils # 15.4 H (1.3-7.7) k/uL Monocytes # 1.3 H (0-1.0) k/uL Glucose 332 H (74-99) mg/dL POC Glucose (mg/dL) (75-99) mg/dL Magnesium 1.5 L (1.6-2.3) mg/dL Alkaline Phosphatase 143 H (38-126) U/L Troponin I (0.000-0.034) ng/mL Albumin 3.4 L (3.5-5.0) g/dL HDL Cholesterol (40-60) mg/dL 07/07/20 07/07/20 07/07/20 Range/Units 18:30 21:25 22:26 WBC (3.8-10.6) k/uL Plt Count (150-450) k/uL Neutrophils # (1.3-7.7) k/uL Monocytes # (0-1.0) k/uL Glucose (74-99) mg/dL POC Glucose (mg/dL) 310 H (75-99) mg/dL Magnesium (1.6-2.3) mg/dL Alkaline Phosphatase (38-126) U/L Troponin I 2.910 H* 4.480 H* (0.000-0.034) ng/mL Albumin (3.5-5.0) g/dL HDL Cholesterol (40-60) mg/dL 07/08/20 07/08/20 07/08/20 Range/Units 01:26 03:46 06:13 WBC (3.8-10.6) k/uL Plt Count (150-450) k/uL Neutrophils # (1.3-7.7) k/uL Monocytes # (0-1.0) k/uL Glucose (74-99) mg/dL POC Glucose (mg/dL) 216 H (75-99) mg/dL Magnesium (1.6-2.3) mg/dL Alkaline Phosphatase (38-126) U/L Troponin I 5.680 H* (0.000-0.034) ng/mL Albumin (3.5-5.0) g/dL HDL Cholesterol 39 L (40-60) mg/dL Thrombosis Risk Factor Assmnt - Choose All That Apply Each Factor Represents 1 point: Sepsis (< 1month) Each Risk Factor Represents 2 Points: Age 61-74 years Thrombosis Risk Factor Assessment Total Risk Factor Score: 3 Thrombosis Risk Factor Assessment Level: Moderate Risk Assessment and Plan Assessment: elevated troponin, suspicious for non-STEMI surgical abdominal wound infection recent history of Colonic stricture secondary to Crohn's disease status post subtotal colectomy and ileostomy formation Hyperlipidemia Hypertension Transient hypotensive, improved with fluids and steroids History of CVA/TIA with some residual blood test Hearing difficulty Chronic back pain Leukocytosis secondary to steroid effect and reactive from surgery Plan: this is a pleasant 69 years old male who presents with surgical wound infection and high troponin.Continue with heparin drip and aspirin. Cardiology consult .Consent wound culture sample and started the patient on Unasyn Labs and medication were reviewed.. Continue same treatment. Continue with symptomatic treatment. Resume home medication. Monitor lytes and vitals. DVT and GI prophylaxis. Further recommendationsas per clinical course of the patient DVT prophylaxis: heparin GI Prophylaxis: Pepcid
[2020-07-08] MEDS ORDERED: ALPRAZolam 0.5 MG TAB PO PRN (11:19)
[2020-07-08] MEDS ORDERED: SODIUM CHLORIDE 0.9% 1,000 ML in EMPTY BAG 1 BAG IV ONE (11:19)
[2020-07-08] MEDS ORDERED: ALPRAZolam 0.25 MG TAB PO PRN (11:19)
[2020-07-08] MEDS ORDERED: NITROGLYCERIN SL TABS 0.4 MG TAB SUBLINGUAL PRN (11:19)
[2020-07-08 11:51] LABS: Glucose,Whole Blood 144 mg/dL (75-99)
--- NOTE | 2020-07-08 11:51 | P.CONS ---
History of Present Illness - Reason for Consult Consult date: 07/08/20 wound care - History of Present Illness tt is a 69-year-old gentleman being seen by the wound care center for a nonhealing wound dehiscence to the abdomen. Patient underwent surgical intervention for alcohol chronic stricture secondary to Crohn's disease. He underwent a subtotal colectomy and ileostomy. Patient has princess in place. Over the weekend he noticed that the midline incision was opening up. Patient denied any abdominal pain or discomfort. He does have increased drainage from the site. The ileostomy dressing is over the wound. Patient's past medical history significant for Crohn's disease, asthma, CVA, diabetes mellitus, hyperlipidemia, hypertension, chronic back pain. he is steroid dependent. Review of Systems Review Of Systems: Constitutional: No fever, no chills, no night sweats. No weight change. No weakness, fatigue or lethargy. No daytime sleepiness. Integumentary:reports wounds, no lesions. No rash or pruritus. No unusual bruising. No change in hair or nails. 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 History of Any Multi-Drug Resistant Organisms: C-DIFF, MRSA Year Discovered:: January 2015 (At [facility] per patient) MDRO Source:: Right Ankle and Back (per patient) Past Surgical History: Adenoidectomy, Bowel Resection, Orthopedic Surgery, Tonsillectomy Additional Past Surgical History / Comment(s): 01/2015 Laminectomy, discectomy with decompression L5-S1, I&D epidural abscess L5-S1 (STATED HAD MULTIPLE BX- BENIGN)and aspiration R ankle, 02/2015 I&D L5-S1 at [facility] [place], Yearly colonoscopy . left wrist surgically repaired after fx-PLATE/SCREW. RT HIP TEVIN/SCREWS. Past Anesthesia/Blood Transfusion Reactions: No Reported Reaction Additional Past Anesthesia/Blood Transfusion Reaction / Comm: Pt states he recieved blood 02/2015 at [facility] without reaction. Past Psychological History: No Psychological Hx Reported Additional Psychological History / Comment(s): Pt resideswith daughter. Drives, has dogs. Smoking Status: Former smoker, Never smoker Past Alcohol Use History: None Reported Additional Past Alcohol Use History / Comment(s): Patient has a history of smoking marijuana half ounce per day and quit in 1998. He denies any alcohol use SINCE 1975. Past Drug Use History: None Reported Additional Drug Use History / Comment(s): No current use. - Past Family History Father Family Medical History: Myocardial Infarction ([place]) Additional Family Medical History / Comment(s): Father of massive [place]. Mother Family Medical History: Diabetes Mellitus Medications and Allergies Home Medications Medication Instructions Recorded Confirmed Type Aspirin 325 mg PO DAILY 06/17/17 07/07/20 History Acetaminophen Tab [Tylenol] 650 mg PO DIRECTED PRN 02/14/19 07/07/20 History Budesonide-Formot 160-4.5 Mcg 2 puff INHALATION RT-BID PRN 06/11/20 07/07/20 Hi story [Symbicort 160-4.5 Mcg Inhaler] Finasteride [Proscar] 5 mg PO DAILY 06/11/20 07/07/20 History Multivit-Min/FA/Lycopen/Lutein 1 each PO DAILY 06/11/20 07/07/20 History [Centrum Silver Tablet] Diphenoxylate HCl/Atropine 1 tab PO TID 30 Days #90 tab 07/02/20 07/07/20 Rx [Lomotil 2.5-0.025 mg Tablet] Fexofenadine HCl [Dara Allergy] 60 mg PO DAILY 07/07/20 07/07/20 History carvediloL [Coreg] 3.125 mg PO BID 07/07/20 07/07/20 History glyBURIDE [Diabeta] 5 mg PO BID 07/07/20 07/07/20 History lisinopriL [Zestril] 10 mg PO DAILY 07/07/20 07/07/20 History predniSONE 15 mg PO DAILY MDD 25mg PRN 07/07/20 07/07/20 History Allergies Allergy/AdvReac Type Severity Reaction Status Date / Time No Known Allergies Allergy Verified 07/07/20 21:45 Physical Exam Vitals: Vital Signs Temp Pulse Pulse Resp BP BP Pulse Ox 07/08/20 11:05 98.1 F 94 16 128/75 98 10/14/20 07:57 122 H 07/08/20 07:41 98.7 F 122 H 18 117/77 94 L 07/08/20 04:00 120 H 18 109/81 94 L 07/08/20 00:00 98.4 F 124 H 20 123/80 94 L 07/07/20 22:38 99.2 F 115 H 22 118/82 94 L 07/07/20 20:58 129 H 24 117/105 96 07/07/20 20:03 125 H 20 140/102 94 L 07/07/20 17:24 98.1 F 139 H 18 122/79 95 Intake and Output 07/07/20 07/08/20 07/08/20 22:59 06:59 14:59 Intake Total 78.833 Output Total 500 50 Balance -421.167 -50 Intake: Intake, IV Titration 78.833 Amount Heparin Sod,Pork in 0.45% 78.833 NaCl 25,000 unit In 0.45 % NaCl 1 250ml.bag @ 10. 35 UNITS/KG/HR 10 mls/hr IV .Q24H [facility] Rx#: [id number] Output: Urine 50 Stool 500 Other: Voiding Method Urinal Urinal Weight 96.615 kg 88.5 kg Physical exam: General Appearance: Alert, cooperative, no distress, appears stated age. Skin: midline ulceration full-thickness ulceration related to surgical dehiscence. Savage still intact to the superior and inferior portion of the incision. Ulceration measures approximate 5 x 4 x 0.5 cm with significant amount of slough and serous drainage noted to the site. Periwound shows sca rring and erythema. No undermining or tunneling noted. all other Skin color, texture, tugor normal, no rashes or lesions. Neurologic: Alert oriented x3 Results CBC & Chem 7: 07/07/20 18:30 07/07/20 18:30 Labs: Abnormal Lab Results - Last 24 Hours (Table) 07/07/20 07/07/20 07/07/20 Range/Units 18:30 18:30 18:30 WBC 18.9 H (3.8-10.6) k/uL Plt Count 515 H D (150-450) k/uL Neutrophils # 15.4 H (1.3-7.7) k/uL Monocytes # 1.3 H (0-1.0) k/uL Glucose 332 H (74-99) mg/dL POC Glucose (mg/dL) (75-99) mg/dL Magnesium 1.5 L (1.6-2.3) mg/dL Alkaline Phosphatase 143 H (38-126) U/L Troponin I (0.000-0.034) ng/mL Albumin 3.4 L (3.5-5.0) g/dL HDL Cholesterol (40-60) mg/dL 07/07/20 07/07/20 07/07/20 Range/Units 18:30 21:25 22:26 WBC (3.8-10.6) k/uL Plt Count (150-450) k/uL Neutrophils # (1.3-7.7) k/uL Monocytes # (0-1.0) k/uL Glucose (74-99) mg/dL POC Glucose (mg/dL) 310 H (75-99) mg/dL Magnesium (1.6-2.3) mg/dL Alkaline Phosphatase (38-126) U/L Troponin I 2.910 H* 4.480 H* (0.000-0.034) ng/mL Albumin (3.5-5.0) g/dL HDL Cholesterol (40-60) mg/dL 07/08/20 07/08/20 07/08/20 Range/Units 01:26 03:46 06:13 WBC (3.8-10.6) k/uL Plt Count (150-450) k/uL Neutrophils # (1.3-7.7) k/uL Monocytes # (0-1.0) k/uL Glucose (74-99) mg/dL POC Glucose (mg/dL) 216 H (75-99) mg/dL Magnesium (1.6-2.3) mg/dL Alkaline Phosphatase (38-126) U/L Troponin I 5.680 H* (0.000-0.034) ng/mL Albumin (3.5-5.0) g/dL HDL Cholesterol 39 L (40-60) mg/dL Assessment and Plan (1) Surgical wound dehiscence Current Visit: Yes Status: Acute Code(s): T81.31XA - DISRUPTION OF EXTERNAL OPERATION (SURGICAL) WOUND, NEC, INIT SNOMED Code(s): 35552810 (2) Nonhealing skin ulcer with fat layer exposed Current Visit: Yes Status: Acute Code(s): L98.492 - NON-PRS CHRONIC ULCER OF SKIN OF SITES W FAT LAYER EXPOSED SNOMED Code(s): 79479148 (3) Diabetes mellitus with skin ulcer Current Visit: Yes Status: Acute Code(s): E11.622 - TYPE 2 DIABETES MELLITUS WITH OTHER SKIN ULCER; L98.499 - NON-PRESSURE CHRONIC ULCER OF SKIN OF SITES W UNSP SEVERITY SNOMED Code(s): 85351085 Plan: Savage around the ulceration were removed. We'll utilize honey alginate, saline moistened gauze, dry gauze and AVD and secure with paper tape. Changing Monday. If able to secure the ileostomy dressing further away from the ulceration consideration for wound VACwould be appropriate. Patient will need further outpatient wound care upon discharge. Patient verbalized understanding. Patient may shower with protection to the site. Thank you kindly for the consultation any questions contact the wound care center DNP note has been reviewed and discussed with Dr. Mcgregor and the impression and plan of care has been directed as dictated.
--- NOTE | 2020-07-08 12:23 | P.CRDCN ---
History of Present Illness Consult date: 07/08/20 History of present illness: CHIEF COMPLAINT: elevated troponin HISTORY OF PRESENT ILLNESS: This is a 69-year old male with a past medical history significant for hyperlipidemia, hypertension, and diabetes mellitus. Patient follows in the office with [facility]. We have been asked to see the patient in consultation for elevated troponins. The patient underwent subtotal colectomy with ileostomy creation on 06/22/[address] Phan. Patient presented to the hospital yesterday secondary to surgical wound dehiscence. Patient denies chest pain or pressure. He denies shortness of breath. Denies dizziness or lightheadedness. Patient was noted to have a negative shiva scan in 2019. DIAGNOSTICS: EKG reveals sinus tachycardia with slight ST depression in inferior and lateral leads Chest xray chronic elevation of right diaphragm unchanged compared to recent exam. No heart failure. Laboratory data: W BC 18.9. Hemoglobin 13.6. Platelet count 515. Sodium 137. Potassium 4.3. BUN 15. Creatinine 0.93. Magnesium 1.6. troponin 2.910. 4.480. 5.680 Current home cardiac medications include Coreg 3.125 mg twice a day, lisinopril 10 mg daily, aspirin 325 mg daily echocardiogram ejection fraction of 40-45% with mid anterior LV wall motion hypokinesis, mid anterior septal lV wall motion hypokinesis, apical anterior LV wall hypokinesis, and apical septal LV wall hypokinesis REVIEW OF SYSTEMS: At the time of my exam: CONSTITUTIONAL: Denies fever or chills. HEENT: Denies blurred vision, vision changes, or eye pain. Denies hemoptysis CARDIOVASCULAR: Denies chest pain, orthopnea, PND or palpitations RESPIRATORY: No shortness of breath. GASTROINTESTINAL: Denies abdominal pain. Denies nausea or vomiting. HEMATOLOGIC: Denies bleeding disorders. GENITOURINARY: Denies any blood in urine. SKIN: Denies pruitis. Denies rash. PHYSICAL EXAM: VITAL SIGNS: Reviewed. GENERAL: Well-developed in no acute distress. HEENT: Head is normocephalic. Pupils are equal, round. Sclerae anicteric. Mucous membranes of the mouth are moist. Neck supple. No JVD or thyromegaly LUNGS: Respirations even and unlabored. Lungs essentially clear to auscultation bilaterally. HEART: Regular rate and rhythm. S1 and S2 heard. ABDOMEN: Soft. Nondistended. Nontender. Ostomy noted with evidence of incisional dehiscence. EXTREMITIES: Normal range of motion. No clubbing or cyanosis. Peripheral pulses intact. No lower extremity edema NEUROLOGIC: Awake and alert. Oriented x 3. ASSESSMENT: Non-ST elevated myocardial infarction History of Crohns disease with recent subtotal colectomy and ileostomy formation Postoperative surgical wound infection Hypertension Hyperlipidemia Diabetes mellitus, type II Cardiomyopathy, possible ischemic in nature PLAN: Resume home cardiac medications Continue IV heparin drip. Discontinue tomorrow at 5am Patient to undergo cardiac cath tomorrow with Dr. Archuleta Nurse practitioner note has been reviewed by physician. Signing provider agrees with the documented findings, assessment, and plan of care. 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 History of Any Multi-Drug Resistant Organisms: C-DIFF, MRSA Date of last positivie culture/infection: January 2015 (At [facility] per patient) MDRO Source:: Right Ankle and Back (per patient) Past Surgical History: Adenoidectomy, Bowel Resection, Orthopedic Surgery, Tonsillectomy Additional Past Surgical History / Comment(s): 01/2015 Laminectomy, discectomy with decompression L5-S1, I&D epidural abscess L5-S1 (STATED HAD MULTIPLE BX- BENIGN)and aspiration R ankle, [place] [facility] [place] . left wrist surgically repaired after fx-PLATE/SCREW. RT HIP TEVIN/SCREWS. Past Anesthesia/Blood Transfusion Reactions: No Reported Reaction Additional Past Anesthesia/Blood Transfusion Reaction / Comment(s): Pt states he recieved blood 02/2015 at [facility] without reaction. Past Psychological History: No Psychological Hx Reported Additional Psychological History / Comment(s): Pt resideswith daughter. Drives, has dogs. Smoking Status: Former smoker, Never smoker Past Alcohol Use History: None Reported Additional Past Alcohol Use History / Comment(s): Patient has a history of smoking marijuana half ounce per day and quit in 1998. He denies any alcohol use SINCE 1975. Past Drug Use History: None Reported Additional Drug Use History / Comment(s): No current use. - Past Family History Father Family Medical History: Myocardial Infarction ([place]) Additional Family Medical History / Comment(s): Father of massive [place]. Mother Family Medical History: Diabetes Mellitus Medications and Allergies Home Medications Medication Instructions Recorded Confirmed Type Aspirin 325 mg PO DAILY 06/17/17 07/07/20 History Acetaminophen Tab [Tylenol] 650 mg PO DIRECTED PRN 02/14/19 07/07/20 History Budesonide-Formot 160-4.5 Mcg 2 puff INHALATION RT-BID PRN 06/11/20 07/07/20 History [Symbicort 160-4.5 Mcg Inhaler] Finasteride [Proscar] 5 mg PO DAILY 06/11/20 07/07/20 History Multivit-Min/FA/Lycopen/Lutein 1 each PO DAILY 06/11/20 07/07/20 History [Centrum Silver Tablet] Diphenoxylate HCl/Atropine 1 tab PO TID 30 Days #90 tab 07/02/20 07/07/20 Rx [Lomotil 2.5-0.025 mg Tablet] Fexofenadine HCl [Dara Allergy] 60 mg PO DAILY 07/07/20 07/07/20 History carvediloL [Coreg] 3.125 mg PO BID 07/07/20 07/07/20 History glyBURIDE [Diabeta] 5 mg PO BID 07/07/20 07/07/20 History lisinopriL [Zestril] 10 mg PO DAILY 07/07/20 07/07/20 History predniSONE 15 mg PO DAILY MDD 25mg PRN 07/07/20 07/07/20 History Allergies Allergy/AdvReac Type Severity Reaction Status Date / Time No Known Allergies Allergy Verified 07/07/20 21:45 Physical Exam Vitals: Vital Signs Temp Pulse Pulse Resp BP BP Pulse Ox 07/08/20 11:05 98.1 F 94 16 128/75 98 07/08/20 07:57 122 H 07/08/20 07:41 98.7 F 122 H 18 117/77 94 L 07/08/20 04:00 120 H 18 109/81 94 L 07/08/20 00:00 98.4 F 124 H 20 123/80 94 L 07/07/20 22:38 99.2 F 115 H 22 118/82 94 L 07/07/20 20:58 129 H 24 117/105 96 07/07/20 20:03 125 H 20 140/102 94 L 07/07/20 17:24 98.1 F 139 H 18 122/79 95 Intake and Output 07/07/20 07/08/20 07/08/20 22:59 06:59 14:59 Intake Total 78.833 Output Total 500 50 Balance -421.167 -50 Intake: Intake, IV Titration 78.833 Amount Heparin Sod,Pork in 0.45% 78.833 NaCl 25,000 unit In 0.45 % NaCl 1 250ml.bag @ 10. 35 UNITS/KG/HR 10 mls/hr IV .Q24H [facility] Rx#: [id number] Output: Urine 50 Stool 500 Other: Voiding Method Urinal Urinal Weight 96.615 kg 88.5 kg Results 07/07/20 18:30 07/07/20 18:30 Cardiac Enzymes 07/07/20 07/07/20 07/07/20 Range/Units 18:30 18:30 22:26 AST 55 (17-59) U/L Troponin I 2.910 H* 4.480 H* (0.000-0.034) ng/mL 07/08/20 Range/Units 01:26 AST (17-59) U/L Troponin I 5.680 H* (0.000-0.034) ng/mL Coagulation 07/08/20 Range/Units 03:46 APTT 25.3 (22.0-30.0) sec Lipids 07/08/20 Range/Units 03:46 Triglycerides 139 (<150) mg/dL Cholesterol 153 (<200) mg/dL HDL Cholesterol 39 L (40-60) mg/dL CBC 07/07/20 Range/Units 18:30 WBC 18.9 H (3.8-10.6) k/uL RBC 4.42 (4.30-5.90) m/uL Hgb 13.6 D (13.0-17.5) gm/dL Hct 43.0 (39.0-53.0) % Plt Count 515 H D (150-450) k/uL Comprehensive Metabolic Panel 07/07/20 Range/Units 18:30 Sodium 137 (137-145) mmol/L Potassium 4.3 (3.5-5.1) mmol/L Chloride 99 (98-107) mmol/L Carbon Dioxide 28 (22-30) mmol/L BUN 15 (9-20) mg/dL Creatinine 0.93 (0.66-1.25) mg/dL Glucose 332 H (74-99) mg/dL Calcium 9.3 (8.4-10.2) mg/dL AST 55 (17-59) U/L ALT 32 (4-49) U/L Alkaline Phosphatase 143 H (38-126) U/L Total Protein 6.9 (6.3-8.2) g/dL Albumin 3.4 L (3.5-5.0) g/dL Current Medications Generic Name Dose Route Start Last Admin Trade Name Freq PRN Reason Stop Dose Admin Acetaminophen 650 mg 07/07/20 21:04 Acetaminophen Tab 325 Mg Tab PO DIRECTED PRN Pain Alprazolam 0.25 mg 07/08/20 11:19 Alprazolam 0.25 Mg Tab PO Q6HR PRN Mild Anxiety Alprazolam 0.5 mg 07/08/20 11:19 Alprazolam 0.5 Mg Tab PO Q6HR PRN Moderate Anxiety Aspirin 325 mg 07/09/20 05:00 Aspirin 325 Mg Tab PO 07/09/20 05:01 ONCE ONE Aspirin 81 mg 07/09/20 09:00 Aspirin 81 Mg PO DAILY JOHN Atorvastatin Calcium 80 mg 07/09/20 05:00 Atorvastatin 80 Mg Tab PO 07/09/20 05:01 ONCE ONE Budesonide/Formoterol Fumarate 2 puff 07/08/20 09:00 07/08/20 08:20 Symbicort 160-4.5 Mcg Inhaler INHALATION 2 puff BID PRN Administration Shortness Of Breath Diphenoxylate HCl/Atropine 1 each 07/08/20 09:00 07/08/20 07:51 Diphenox-Atrop 2.5-0.025 Mg 1 Each Tab PO 1 each TID JOHN Administration Finasteride 5 mg 07/08/20 09:00 07/08/20 07:51 Finasteride 5 Mg Tab PO 5 mg DAILY JOHN Administration Sodium Chloride 1,000 mls @ 80 mls/hr 07/07/20 21:00 07/08/20 07:51 Saline 0.9% IV 80 mls/hr .[id number] JOHN Administration Heparin Sodium/Sodium Chloride 250 mls @ 10 mls/hr 07/07/20 21:00 07/08/20 05:33 25,000 unit/ Sodium Chloride IV 13.35 units/kg/hr .Q24H JOHN 12.898 mls/hr Titration Protocol 10.35 UNITS/KG/HR Sodium Chloride 1,000 ml/ IV 1,000 mls @ 88.5 mls/hr 07/08/20 11:19 Solution IV 07/08/20 22:36 .[id number] ONE 1 ML/KG/HR Insulin Aspart 0 unit 07/08/20 07:30 07/08/20 06:39 Insulin Aspart (Novolog) 100 Unit/Ml Vial SQ 3 unit ACHS JOHN Administration Protocol Lisinopril 5 mg 07/08/20 09:00 07/08/20 07:51 Lisinopril 5 Mg Tab PO 5 mg QAM JOHN Administration Montelukast Sodium 10 mg 07/08/20 09:00 07/08/20 07:51 Montelukast 10 Mg Tab PO 10 mg DAILY JOHN Administration Multivitamins 1 each 07/08/20 09:00 07/08/20 07:51 Multivitamins, Thera 1 Each Tab PO 1 each DAILY JOHN Administration Nitroglycerin 0.4 mg 07/08/20 11:19 Nitroglycerin Sl Tabs 0.4 Mg Tab SUBLINGUAL Q5M PRN Chest Pain Intake and Output 07/07/20 07/08/20 07/08/20 22:59 06:59 14:59 Intake Total 78.833 Output Total 500 50 Balance -421.167 -50 Intake: Intake, IV Titration 78.833 Amount Heparin Sod,Pork in 0.45% 78.833 NaCl 25,000 unit In 0.45 % NaCl 1 250ml.bag @ 10. 35 UNITS/KG/HR 10 mls/hr IV .Q24H [facility] Rx#: [id number] Output: Urine 50 Stool 500 Other: Voiding Method Urinal Urinal Weight 96.615 kg 88.5 kg 07/07/20 18:30 07/07/20 18:30
[2020-07-08] MEDS: carvediloL 3.125 MG TAB PO SCH ×2 (12:27→17:20)
--- NOTE | 2020-07-08 15:02 | P.GSCN ---
History of Present Illness Consult date: 07/08/20 History of present illness: The patient is About 2-1/2 weeks status post subtotal colectomy. Home nursing called due to concerns about redness of the incision and weakness. He was supposed to see me in the office yesterday however cancel that appointment. Later in the day he went to the emergency room. He was admitted with non-ST wave [place]. He says he's been eating fair home. He is eating things such as pain about her and jelly sandwiches and ground beef casserole. He's having some trouble with the ostomy appliance staying on. He is having some leakage. 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 History of Any Multi-Drug Resistant Organisms: C-DIFF, MRSA Year Discovered:: January 2015 (At [facility] per patient) MDRO Source:: Right Ankle and Back (per patient) Past Surgical History: Adenoidectomy, Bowel Resection, Orthopedic Surgery, Tonsillectomy Additional Past Surgical History / Comment(s): 01/2015 Laminectomy, discectomy with decompression L5-S1, I&D epidural abscess L5-S1 (STATED HAD MULTIPLE BX- BENIGN)and aspiration R ankle, [place] [facility] [place] . left wrist surgically repaired after fx-PLATE/SCREW. RT HIP TEVIN/SCREWS. Past Anesthesia/Blood Transfusion Reactions: No Reported Reaction Additional Past Anesthesia/Blood Transfusion Reaction / Comm: Pt states he r ecieved blood 02/2015 at [facility] without reaction. Past Psychological History: No Psychological Hx Reported Additional Psychological History / Comment(s): Pt resideswith daughter. Drives, has dogs. Smoking Status: Former smoker, Never smoker Past Alcohol Use History: None Reported Additional Past Alcohol Use History / Comment(s): Patient has a history of smoking marijuana half ounce per day and quit in 1998. He denies any alcohol use SINCE 1975. Past Drug Use History: None Reported Additional Drug Use History / Comment(s): No current use. - Past Family History Father Family Medical History: Myocardial Infarction ([place]) Additional Family Medical History / Comment(s): Father of massive [place]. Mother Family Medical History: Diabetes Mellitus Medications and Allergies Home Medications Medication Instructions Recorded Confirmed Type Aspirin 325 mg PO DAILY 06/17/17 07/07/20 History Acetaminophen Tab [Tylenol] 650 mg PO DIRECTED PRN 02/14/19 07/07/20 History Budesonide-Formot 160-4.5 Mcg 2 puff INHALATION RT-BID PRN 06/11/20 07/07/20 History [Symbicort 160-4.5 Mcg Inhaler] Finasteride [Proscar] 5 mg PO DAILY 06/11/20 07/07/20 History Multivit-Min/FA/Lycopen/Lutein 1 each PO DAILY 06/11/20 07/07/20 History [Centrum Silver Tablet] Diphenoxylate HCl/Atropine 1 tab PO TID 30 Days #90 tab 07/02/20 07/07/20 Rx [Lomotil 2.5-0.025 mg Tablet] Fexofenadine HCl [Dara Allergy] 60 mg PO DAILY 07/07/20 07/07/20 History carvediloL [Coreg] 3.125 mg PO BID 07/07/20 07/07/20 History glyBURIDE [Diabeta] 5 mg PO BID 07/07/20 07/07/20 History lisinopriL [Zestril] 10 mg PO DAILY 07/07/20 07/07/20 History predniSONE 15 mg PO DAILY MDD 25mg PRN 07/07/20 07/07/20 History Allergies Allergy/AdvReac Type Severity Reaction Status Date / Time No Known Allergies Allergy Verified 07/07/20 21:45 Surgical - Exam Osteopathic Statement: *. No significant issues noted on an osteopathic structural exam other than those noted in the History and Physical/Consult. Vital Signs Temp Pulse Resp BP Pulse Ox 98.1 F 139 H 18 122/79 95 07/07/20 17:24 07/07/20 17:24 07/07/20 17:24 07/07/20 17:24 07/07/20 17:24 - General no distress - Eyes normal ocular movement - Abdomen The lower portion of the incision is open with granulation tissue and some slough. There is some erythema near the princess. This is likely due to them be ing in place for 2 and half weeks. The ostomy appliance is lifted up medially towards the incision. The ostomy is pink and viable. Watery output in the appliance Abdomen: soft, non tender, bowel sounds Results - Labs 07/07/20 18:30 07/07/20 18:30 Abnormal Lab Results - Last 24 Hours (Table) 07/07/20 07/07/20 07/07/20 Range/Units 18:30 18:30 18:30 WBC 18.9 H (3.8-10.6) k/uL Plt Count 515 H D (150-450) k/uL Neutrophils # 15.4 H (1.3-7.7) k/uL Monocytes # 1.3 H (0-1.0) k/uL APTT (22.0-30.0) sec Glucose 332 H (74-99) mg/dL POC Glucose (mg/dL) (75-99) mg/dL Magnesium 1.5 L (1.6-2.3) mg/dL Alkaline Phosphatase 143 H (38-126) U/L Troponin I (0.000-0.034) ng/mL Albumin 3.4 L (3.5-5.0) g/dL HDL Cholesterol (40-60) mg/dL 07/07/20 07/07/20 07/07/20 Range/Units 18:30 21:25 22:26 WBC (3.8-10.6) k/uL Plt Count (150-450) k/uL Neutrophils # (1.3-7.7) k/uL Monocytes # (0-1.0) k/uL APTT (22.0-30.0) sec Glucose (74-99) mg/dL POC Glucose (mg/dL) 310 H (75-99) mg/dL Magnesium (1.6-2.3) mg/dL Alkaline Phosphatase (38-126) U/L Troponin I 2.910 H* 4.480 H* (0.000-0.034) ng/mL Albumin (3.5-5.0) g/dL HDL Cholesterol (40-60) mg/dL 07/08/20 07/08/20 07/08/20 Range/Units 01:26 03:46 06:13 WBC (3.8-10.6) k/uL Plt Count (150-450) k/uL Neutrophils # (1.3-7.7) k/uL Monocytes # (0-1.0) k/uL APTT (22.0-30.0) sec Glucose (74-99) mg/dL POC Glucose (mg/dL) 216 H (75-99) mg/dL Magnesium (1.6-2.3) mg/dL Alkaline Phosphatase (38-126) U/L Troponin I 5.680 H* (0.000-0.034) ng/mL Albumin (3.5-5.0) g/dL HDL Cholesterol 39 L (40-60) mg/dL 07/08/20 07/08/20 Range/Units 11:47 12:53 WBC (3.8-10.6) k/uL Plt Count (150-450) k/uL Neutrophils # (1.3-7.7) k/uL Monocytes # (0-1.0) k/uL APTT 33.9 H (22.0-30.0) sec Glucose (74-99) mg/dL POC Glucose (mg/dL) 144 H (75-99) mg/dL Magnesium (1.6-2.3) mg/dL Alkaline Phosphatase (38-126) U/L Troponin I (0.000-0.034) ng/mL Albumin (3.5-5.0) g/dL HDL Cholesterol (40-60) mg/dL Diabetes panel 07/07/20 07/08/20 Range/Units 18:30 03:46 Sodium 137 (137-145) mmol/L Potassium 4.3 (3.5-5.1) mmol/L Chloride 99 (98-107) mmol/L Carbon Dioxide 28 (22-30) mmol/L BUN 15 (9-20) mg/dL Creatinine 0.93 (0.66-1.25) mg/dL Glucose 332 H (74-99) mg/dL Calcium 9.3 (8.4-10.2) mg/dL AST 55 (17-59) U/L ALT 32 (4-49) U/L Alkaline Phosphatase 143 H (38-126) U/L Total Protein 6.9 (6.3-8.2) g/dL Albumin 3.4 L (3.5-5.0) g/dL Triglycerides 139 (<150) mg/dL HDL Cholesterol 39 L (40-60) mg/dL Calcium panel 07/07/20 Range/Units 18:30 Calcium 9.3 (8.4-10.2) mg/dL Albumin 3.4 L (3.5-5.0) g/dL Pituitary panel 07/07/20 Range/Units 18:30 Sodium 137 (137-145) mmol/L Potassium 4.3 (3.5-5.1) mmol/L Chloride 99 (98-107) mmol/L Carbon Dioxide 28 (22-30) mmol/L BUN 15 (9-20) mg/dL Creatinine 0.93 (0.66-1.25) mg/dL Glucose 332 H (74-99) mg/dL Calcium 9.3 (8.4-10.2) mg/dL Adrenal panel 07/07/20 Range/Units 18:30 Sodium 137 (137-145) mmol/L Potassium 4.3 (3.5-5.1) mmol/L Chloride 99 (98-107) mmol/L Carbon Dioxide 28 (22-30) mmol/L BUN 15 (9-20) mg/dL Creatinine 0.93 (0.66-1.25) mg/dL Glucose 332 H (74-99) mg/dL Calcium 9.3 (8.4-10.2) mg/dL Total Bilirubin 0.6 (0.2-1.3) mg/dL AST 55 (17-59) U/L ALT 32 (4-49) U/L Alkaline Phosphatase 143 H (38-126) U/L Total Protein 6.9 (6.3-8.2) g/dL Albumin 3.4 L (3.5-5.0) g/dL Assessment and Plan (1) Postoperative dehiscence of skin wound Current Visit: Yes Status: Acute Code(s): T81.31XA - DISRUPTION OF EXTERNAL OPERATION (SURGICAL) WOUND, NEC, INIT SNOMED Code(s): 193742078 (2) Non-STEMI (non-ST elevated myocardial infarction) Current Visit: Yes Status: Acute Code(s): I21.4 - NON-ST ELEVATION (NSTEMI) MYOCARDIAL INFARCTION SNOMED Code(s): 52719431 Plan: He is receiving medical treatment for the non-ST wave [place]. Patient's going for cardiac catheterization tomorrow. We'll do local wound care for the wound. I consulted wound care. We'll add Metamucil twice a day to try to the ileostomy output.
[2020-07-08] MEDS: AMPICILLIN-SULBACTAM 1.5 GM in SODIUM CHLORIDE 0.9% 50 ML IVPB SCH (15:27)
[2020-07-08 16:53] LABS: Glucose,Whole Blood 139 mg/dL (75-99)
[2020-07-08 20:20] LABS: Glucose,Whole Blood 138 mg/dL (75-99)
[2020-07-08] MEDS ORDERED: ATORVASTATIN 40 MG TAB PO SCH (21:00)
[2020-07-08] MEDS: PSYLLIUM HUSK 100% 6 GM PACKET PO SCH (22:14)
[2020-07-08] MEDS: HEPARIN SOD,PORK IN 0.45% NACL 25,000 UNIT in 0.45% NACL 1 250ML.BAG IV SCH (22:57)
[2020-07-09] MEDS: AMPICILLIN-SULBACTAM 1.5 GM in SODIUM CHLORIDE 0.9% 50 ML IVPB SCH ×4 (01:18→23:07)
[2020-07-09] MEDS ORDERED: ATORVASTATIN 80 MG TAB PO ONE (05:00)
[2020-07-09] MEDS ORDERED: ASPIRIN 325 MG TAB PO ONE (05:00)
[2020-07-09] MEDS: MULTIVITAMINS, THERA 1 EACH TAB PO SCH (06:00)
[2020-07-09] MEDS: carvediloL 3.125 MG TAB PO SCH ×2 (06:00→19:21)
[2020-07-09] MEDS: DIPHENOX-ATROP 2.5-0.025 MG 1 EACH TAB PO SCH ×3 (06:00→23:07)
[2020-07-09] MEDS: MONTELUKAST 10 MG TAB PO SCH (06:01)
[2020-07-09] MEDS: lisinopriL 5 MG TAB PO SCH (06:01)
[2020-07-09] MEDS: INSULIN ASPART (NovoLOG) 100 UNIT/ML VIAL SQ SCH ×4 (06:06→21:06)
[2020-07-09] MEDS: ASPIRIN 81 MG PO SCH (06:07)
[2020-07-09] MEDS: PSYLLIUM HUSK 100% 6 GM PACKET PO SCH ×2 (06:07→21:05)
[2020-07-09 06:23] LABS: Glucose,Whole Blood 132 mg/dL (75-99)
[2020-07-09 06:37] LABS: Eosinophils % (A) 1 %; HCT 33.2 % (39.0-53.0); HGB 10.7 gm/dL (13.0-17.5); Hypochromasia Moderate; Lymphocytes % (A) 10 %; MCH 31.3 pg (25.0-35.0); MCHC 32.2 g/dL (31.0-37.0); MCV 97.2 fL (80.0-100.0); Monocytes % (A) 7 %; Neutrophils % (A) 81 %; Platelet Count 356 k/uL (150-450); RBC 3.42 m/uL (4.30-5.90); RDW 14.2 % (11.5-15.5); WBC 19.1 k/uL (3.8-10.6)
[2020-07-09 06:38] LABS: Basophils # (A) 0.1 k/uL (0-0.2); Basophils % (A) 0 %; Eosinophils # (A) 0.3 k/uL (0-0.7); Lymphocytes # (A) 1.9 k/uL (1.0-4.8); Monocytes # (A) 1.3 k/uL (0-1.0); Neutrophils # (A) 15.5 k/uL (1.3-7.7)
[2020-07-09 06:57] LABS: African American GFR (CKD) >90 (>60 ml/min/1.73 sqM); Anion Gap 4 mmol/L; Blood Urea Nitrogen 14 mg/dL (9-20); Calcium 7.6 mg/dL (8.4-10.2); Carbon Dioxide 27 mmol/L (22-30); Chloride 105 mmol/L (98-107); Glucose 120 mg/dL (74-99); Non-African American GFR(CKD) >90 (>60 ml/min/1.73 sqM); Sodium 136 mmol/L (137-145)
[2020-07-09] MEDS ORDERED: LIDOCAINE 1% INJ 10MG/ML (20 ML MDV) ONE (07:14)
[2020-07-09] MEDS ORDERED: fentaNYL (PF) 50 MCG/ML 2 ML AMP ONE (07:30)
[2020-07-09] MEDS ORDERED: IV FLUID CONTINUATION 1,000 ML IV ONE (07:30)
[2020-07-09] MEDS ORDERED: MIDAZOLAM 2 MG/2 ML VIAL IVP ONE (07:31)
[2020-07-09] MEDS ORDERED: fentaNYL (PF) 50 MCG/ML 2 ML AMP IVP ONE (07:31)
[2020-07-09] MEDS ORDERED: LIDOCAINE 1% INJ 10MG/ML (20 ML MDV) SQ ONE (07:31)
[2020-07-09] MEDS ORDERED: HEPARIN SODIUM 1,000 UN/ML (10ML VL) IV ONE (07:58)
[2020-07-09] MEDS ORDERED: SODIUM CHLORIDE 0.9% 1,000 ML IV ONE (08:17)
[2020-07-09] MEDS: HEPARIN SODIUM 1,000 UN/ML (10ML VL) IV ONE ×2 (08:18→08:29)
[2020-07-09] MEDS ORDERED: IOPAMIDOL-370 125ML BTL INJ ONE (08:20)
[2020-07-09] MEDS ORDERED: CLOPIDOGREL 75 MG TAB ONE (08:25)
[2020-07-09] MEDS ORDERED: CLOPIDOGREL 75 MG TAB PO ONE (08:26)
[2020-07-09] MEDS ORDERED: IOPAMIDOL-370 100ML BTL INJ ONE (08:45)
[2020-07-09] MEDS ORDERED: RX INFO: IV CONTRAST WAS GIVEN 1 EACH MISC MISCELLANE PRN (08:58)
[2020-07-09] MEDS: FINASTERIDE 5 MG TAB PO SCH (09:12)
--- NOTE | 2020-07-09 09:55 | CC ---
CARDIAC CATHETERIZATION REPORT INDICATION: Non ST-segment elevation NC. PROCEDURE NOTE: After obtaining informed consent, left heart catheterization, coronary angiogram are performed via the left femoral artery using standard Jeremy catheters. Patient tolerated the procedure well without any obvious immediate complications. Patient received moderate conscious sedation. Total sedation time was 17 minutes. FINDINGS: HEMODYNAMICS: Left ventricular end-diastolic pressure is 6-8 mm. There is no significant gradient across the aortic valve. LEFT VENTRICULOGRAM: Left ventriculogram is not performed. ANGIOGRAPHIC DATA LEFT MAIN CORONARY ARTERY: Left main coronary artery appears calcified but is free of significant stenosis, divides into large dominant circumflex coronary artery and LAD. LAD is a small caliber vessel that appears subtotally occluded in its proximal portion with an area of ectasia and aneurysm. Right coronary artery is a nondominant vessel, is calcified, shows mild nonobstructive coronary artery disease involving proximal and midportion. CONCLUSION: A 95% stenosis involving a small caliber LAD in the very proximal portion. PLAN: I am going to have Dr. Wyatt the on-call hoisting laborer to evaluate the angiographic data and advise on percutaneous revascularization. Patient was hypotensive at the beginning of this study and he received IV fluids including a bolus of 250 mL. He remained symptom-free throughout the study. MMODL / IJN: [id number] /
[2020-07-09 12:02] LABS: Glucose,Whole Blood 176 mg/dL (75-99)
--- NOTE | 2020-07-09 12:11 | P.PN ---
Subjective this is a pleasant 69 years old male with past medical history of asthma, CVA/TIA, diabetes mellitus, hearing disorder, hyperlipidemia, hypertension, chronic back pain, Crohn's disease and he is steroid dependent. He was recently discharge by surgical service for colonic stricture secondary to his Crohn's disease, he underwent subtotal colectomy and ileostomy formation. patient presents this time because his ostomy stitches opened up over the weekend spontaneously. And on presentation patient was found to have elevated cardiac enzymes However patient denies any symptoms he denies chest pain or dyspnea or abdominal pain, no palpitation or dizziness or coughing or headache or weakness or change in urine or bowel habits. He denies fever. He walks a little bit which is his baseline as he states he denies smoking, alcohol or ILLICIT drugs On examination there is some mild erythema and the stitches side and of the lower side of the surgical wound there is a superficial ulcer about 1 cm with some purulent discharge at the base close to the ostomy back. Ostomy bag has semisolid yellow-brown stool she is tachycardic at 122,postop vitals are stable.she has leukocytosis of 18.9 K, no some when she was discharge was 14-16 K.troponin is elevated 2.9, 4.4 and 5.6. BMP and liver enzymes are not elevated. EKG shows sinus tachycardia at 138 with a slight lateral ST depression and change, chest x-ray:no heart failure in the emergency roompatient was started on heparin drip and aspirin 325 mg daily and normal saline at 80 mL per hour 07/09/2020 Patient lying comfortable in bed. No chest pain or dyspnea. Cardiac cath showing 95% stenosis of the LAD, for stent placement and cardiology are following. Currently he is on dual antiplatelet therapy with aspirin and Plavix. His wound dressing is in place, surgery team following the patient. Once culture is pending and him remains on Unasyn WBC is 19.1 K, hemoglobin is 10.7, platelets 356. BMP is unremarkable. Objective - Vital Signs Vital signs: Vital Signs Temp 98.6 F 07/09/20 08:58 Pulse 89 07/09/20 08:58 Resp 18 07/09/20 08:58 BP 98/64 07/09/20 08:58 Pulse Ox 91 L 07/09/20 08:58 Intake & Output 07/08/20 07/09/2007/09/20 18:59 06:59 18:59 Intake Total 757.053 64.114 800 Output Total 400 300 300 Balance 357.053 -235.886 500 Weight 90 kg Intake: IV 650 800 Sodium Chloride 0.9% 1, 650 000 ml @ 80 mls/hr IV . [id number] JOHN Rx#:[id number] Intake, IV Titration 107.053 64.114 Amount Heparin Sod,Pork in 0.45% 107.053 64.114 NaCl 25,000 unit In 0.45 % NaCl 1 250ml.bag @ 10. 35 UNITS/KG/HR 10 mls/hr IV .Q24H JOHN Rx#: [id number] Output: Urine 150 Stool 250 300 300 Other: Voiding Method Urinal Urinal # Bowel Movements 1 - Exam GENERAL: The patient is alert and oriented x3, not in any acute distress. Well developed, well nourished. HEENT: Pupils are round and equally reacting to light. EOMI. No scleral icterus. No conjunctival pallor. Normocephalic, atraumatic. No pharyngeal erythema. No thyromegaly. CARDIOVASCULAR: S1 and S2 present. No murmurs, rubs, or gallops. PULMONARY: Chest is clear to auscultation, no wheezing or crackles. -ABDOMEN: Soft, nontender, nondistended, normoactive bowel sounds. No palpable organomegaly. On examination there is some mild erythema and the stitches side and of the lower side of the surgical wound there is a superficial ulcer about 1 cm with some purulent discharge at the base close to the ostomy back. Ostomy bag has semisolid yellow-brown stool MUSCULOSKELETAL: No joint swelling or deformity. EXTREMITIES: No cyanosis, clubbing, or pedal edema. NEUROLOGICAL: Gross neurological examination did not reveal any focal deficits. SKIN: No rashes. No petechiae - Labs CBC & Chem 7: 07/09/20 05:27 07/09/20 05:27 Labs: Abnormal Lab Results - Last 24 Hours (Table) 07/08/20 07/08/20 07/08/20 Range/Units 12:53 16:49 20:19 WBC (3.8-10.6) k/uL RBC (4.30-5.90) m/uL Hgb (13.0-17.5) gm/dL Hct (39.0-53.0) % Neutrophils # (1.3-7.7) k/uL Monocytes # (0-1.0) k/uL APTT 33.9 H (22.0-30.0) sec Sodium (137-145) mmol/L Glucose (74-99) mg/dL POC Glucose (mg/dL) 139 H 138 H (75-99) mg/dL Calcium (8.4-10.2) mg/dL 07/09/20 07/09/20 07/09/20 Range/Units 05:27 05:27 05:27 WBC 19.1 H (3.8-10.6) k/uL RBC 3.42 L (4.30-5.90) m/uL Hgb 10.7 L (13.0-17.5) gm/dL Hct 33.2 L (39.0-53.0) % Neutrophils # 15.5 H (1.3-7.7) k/uL Monocytes # 1.3 H (0-1.0) k/uL APTT 38.6 H (22.0-30.0) sec Sodium 136 L (137-145) mmol/L Glucose 120 H (74-99) mg/dL POC Glucose (mg/dL) (75-99) mg/dL Calcium 7.6 L (8.4-10.2) mg/dL 07/09/20 07/09/20 Range/Units 06:22 11:41 WBC (3.8-10.6) k/uL RBC (4.30-5.90) m/uL Hgb (13.0-17.5) gm/dL Hct (39.0-53.0) % Neutrophils # (1.3-7.7) k/uL Monocytes # (0-1.0) k/uL APTT (22.0-30.0) sec Sodium (137-145) mmol/L Glucose (74-99) mg/dL POC Glucose (mg/dL) 132 H 176 H (75-99) mg/dL Calcium (8.4-10.2) mg/dL Microbiology - Last 24 Hours (Table) 07/08/20 11:10 Gram Stain - Preliminary Abdomen Wound Culture - Preliminary 07/07/20 18:40 Blood Culture - Preliminary Blood No Growth after 24 hours Assessment and Plan Assessment: elevated troponin, suspicious for non-STEMI, status post cardiac cath surgical abdominal wound infection. recent history of Colonic stricture secondary to Crohn's disease status post subtotal colectomy and ileostomy formation Hyperlipidemia Hypertension Transient hypotensive, improved with fluids and steroids History of CVA/TIA with some residual blood test Hearing difficulty Chronic back pain Leukocytosis secondary to steroid effect and reactive from surgery Plan: this is a pleasant 69 years old male who presents with surgical wound infection and high troponin.Continue with Plavix and aspirin. Follow-up recommendation by surgery and Cardiology consult. Continue with Unasyn and follow-up wound culture Labs and medication were reviewed.. Continue same treatment. Continue with symptomatic treatment. Resume home medication. Monitor lytes and vitals. DVT and GI prophylaxis. Further recommendationsas per clinical course of the patient DVT prophylaxis:sc heparin GI Prophylaxis: Pepcid
--- NOTE | 2020-07-09 14:15 | P.PRCINT ---
Percutaneous Coronary Int. - Percutaneous Coronary Intervention Percutaneous Coronary Intervention: Description of Procedure: Procedures performed: Left coronary angiography, PCI of Proximal to mid LAD with overlapping 2.5 x 8 mm and 2.25 x 18 mm Xience EUGENE. INDICATION: NSTEMI HISTORY: Patient is a pleasant 69 year old male with history of Crohns who underwent recent colectomy and was found to have NSTEMI with new anterior wall motion abnormalities and therefore heart catheterization was performed by Dr Archuelta which showed a severe 95% stenosis of the proximal and mid LAD. I was asked to perform PCI of the LAD. PROCEDURE: After the risks, benefits and alternatives of the above mentioned procedure explained in detail with the patient, informed consent was obtained. Patient had a left femoral sheath in place from diagnostic procedure. See diagnostic report for full details. A decision was made to intervene on the LAD. A 6Fr CLS 3.5 catheter was used to engage the left main. Heparin was given for an ACT over 250. A 0.014 BMW wire was advanced into the distal vessel without difficulty. The lesion was predilated with a 2.25 x 12mm balloon. A 2.25 x 18mm Xience drug-eluting stent was then in the mid LAD and then a 2.5 x 8mm Xience EUGENE was placed at the proximal LAD. The wire was then pulled and final angiograms were performed in various views. Preintervention there was 95% stenosis with MYRIAM 1 flow and postintervention there was 10-20% distal residual stenosis and the distal LAD became small caliber however there was MYRIAM 3 flow. Left femoral angiogram was performed which showed anatomy favorable for closure. A 6Fr Angioseal closure device was placed with hemostasis achieved. The patient tolerated the procedure well. Patient was transported back to the post catheterization holding area in stable condition. Conscious Sedation: Patient was monitored under the direct supervision of vision of myself for conscious sedation using Versed and fentanyl for a total duration of 77 minutes HEMODYNAMICS: Aortic pressure: 91/55 SELECTIVE CORONARY ANGIOGRAPHY: LEFT MAIN: The left main is a large caliber vessel which bifurcates into the LAD and circumflex. There is no significant stenosis. LEFT ANTERIOR DESCENDING CORONARY ARTERY: LAD is a large caliber vessel which does not reach the apex and becomes a small caliber distally. There is a long proximal to mid calcified 90-95% LAD stenosis with MYRIAM 1 flow. There is a stump of a diagonal branch without significant collaterals to the LAD. LEFT CIRCUMFLEX CORONARY ARTERY: Left circumflex is a large caliber vessel with no significant stenosis. RIGHT CORONARY ARTERY: See diagnostic report for details. Not imaged. Conclusions: 1. Coronary artery disease as described above with successful PCI of proximal to mid LAD with overlapping 2.5 x 8 mm and 2.25 x 18 mm Xience EUGENE. 2. NSTEMI Plan: 1. Aggressive risk factor modification per most recent ACC/AHA guidelines. 2. Continue dual antiplatelets for 12 months.
[2020-07-09 17:07] LABS: Glucose,Whole Blood 148 mg/dL (75-99)
[2020-07-09 20:43] LABS: Glucose,Whole Blood 159 mg/dL (75-99)
[2020-07-09] MEDS: HEPARIN SODIUM,PORCINE 5,000 UNIT/ML 1 ML VIAL SQ SCH (21:12)
[2020-07-09] MEDS: SODIUM CHLORIDE 0.9% 1,000 ML IV SCH ×2 (22:58→23:07)
[2020-07-10 06:21] LABS: Glucose,Whole Blood 109 mg/dL (75-99)
[2020-07-10] MEDS: INSULIN ASPART (NovoLOG) 100 UNIT/ML VIAL SQ SCH ×4 (06:32→20:56)
[2020-07-10] MEDS: carvediloL 3.125 MG TAB PO SCH ×2 (06:34→17:17)
[2020-07-10] MEDS: SYMBICORT 160-4.5 MCG INHALER INHALATION PRN ×2 (07:35→20:19)
[2020-07-10 08:20] LABS: African American GFR (CKD) >90 (>60 ml/min/1.73 sqM); Anion Gap 7 mmol/L; Blood Urea Nitrogen 11 mg/dL (9-20); Calcium 7.5 mg/dL (8.4-10.2); Carbon Dioxide 23 mmol/L (22-30); Chloride 106 mmol/L (98-107); Glucose 112 mg/dL (74-99); Non-African American GFR(CKD) >90 (>60 ml/min/1.73 sqM); Potassium 3.6 mmol/L (3.5-5.1); Sodium 136 mmol/L (137-145)
[2020-07-10 08:24] LABS: Basophils % (A) 0 %; Eosinophils # (A) 0.2 k/uL (0-0.7); Eosinophils % (A) 1 %; HGB 9.6 gm/dL (13.0-17.5); Hypochromasia Marked; Lymphocytes # (A) 1.4 k/uL (1.0-4.8); Lymphocytes % (A) 9 %; MCH 30.3 pg (25.0-35.0); MCHC 31.1 g/dL (31.0-37.0); MCV 97.4 fL (80.0-100.0); Mean Platelet Volume 7.5; Monocytes # (A) 1.1 k/uL (0-1.0); Monocytes % (A) 7 %; Neutrophils % (A) 82 %; Platelet Count 305 k/uL (150-450); Poikilocytosis Slight; RBC 3.18 m/uL (4.30-5.90); RDW 14.4 % (11.5-15.5); WBC 14.8 k/uL (3.8-10.6)
[2020-07-10] MEDS: PSYLLIUM HUSK 100% 6 GM PACKET PO SCH ×3 (08:59→20:56)
[2020-07-10] MEDS: AMPICILLIN-SULBACTAM 1.5 GM in SODIUM CHLORIDE 0.9% 50 ML IVPB SCH (09:00)
[2020-07-10] MEDS: lisinopriL 5 MG TAB PO SCH (09:01)
[2020-07-10] MEDS: DIPHENOX-ATROP 2.5-0.025 MG 1 EACH TAB PO SCH ×3 (09:01→20:56)
[2020-07-10] MEDS: CLOPIDOGREL 75 MG TAB PO SCH (09:01)
[2020-07-10] MEDS: MULTIVITAMINS, THERA 1 EACH TAB PO SCH (09:01)
[2020-07-10] MEDS: MONTELUKAST 10 MG TAB PO SCH (09:01)
[2020-07-10] MEDS: ASPIRIN 81 MG PO SCH (09:01)
[2020-07-10] MEDS: HEPARIN SODIUM,PORCINE 5,000 UNIT/ML 1 ML VIAL SQ SCH ×2 (09:01→20:56)
[2020-07-10] MEDS: FINASTERIDE 5 MG TAB PO SCH (09:01)
[2020-07-10 11:42] LABS: Glucose,Whole Blood 159 mg/dL (75-99)
--- NOTE | 2020-07-10 12:37 | P.PN ---
Subjective This is a pleasant 69-year-old male past medical history significant for Crohn's disease status post recent colectomy with anterior wall motion abnormalities and non-ST elevated myocardial infarction. He underwent cardiac catheterization revealing a severe 95% stenosis of the proximal and mid LAD. He underwent successful PCI to the proximal and mid LAD with overlapping drug- eluting stents. He is seen and examined sitting up in the chair in no acute distress. He has no symptoms of chest discomfort, shortness of breath, dizziness or palpitations. Blood pressure 100/57 heart rate 96 afebrile maintaining oxygen saturation on nasal cannula. Laboratory data reviewed, WBC 14.8, hemoglobin 9.6, platelets 305, sodium 136, potassium 3.6, creatinine 0.79. Currently maintained on aspirin 81 mg daily, Coreg 3.125 mg twice a day, Plavix 75 mg daily and lisinopril 5 mg daily. GENERAL: Well-appearing, well-nourished and in no acute distress. NECK: Supple without JVD or thyromegaly. LUNGS: Breath sounds clear to auscultation bilaterally. Respiration equal and unlabored. No wheezes, rales or rhonchi. HEART: Regular rate and rhythm without murmurs, rubs or gallops. S1 and S2 heard. EXTREMITIES: Normal range of motion, no edema. No clubbing or cyanosis. Peripheral pulses intact. Right femoral access site clean, dry and intact with no evidence of bleeding or hematoma. ASSESSMENT Non-ST elevated myocardial infarction Crohn's disease status post colectomy and ileostomy formation Postoperative wound infection and dehiscence Ischemic cardiomyopathy Chronic systolic heart failure, EF 40% Hypertension Dyslipidemia Diabetes mellitus PLAN Initiate atorvastatin 80 mg daily. Continue aspirin, Plavix, Coreg and lisinopril as previously ordered. Stable from a cardiac perspective. Ongoing management of surgical concerns and wound care. Nurse Practitioner note has been reviewed, I agree with a documented findings and plan of care. Patient was seen and examined. Objective - Vital Signs Vital signs: Vital Signs Temp 98.2 F 07/10/20 11:23 Pulse 96 07/10/20 12:00 Resp 16 07/10/20 12:00 BP 100/57 07/10/20 11:23 Pulse Ox 96 07/10/20 11:23 Intake & Output 07/09/20 07/10/20 07/10/20 18:59 06:59 18:59 Intake Total 1000 125 Output Total 1525 600 100 Balance -525 -600 25 Weight 93.5 kg Intake: IV 800 Oral 200 125 Output: Urine 350 500 Stool 1175 100 100 Other: Voiding Method Urinal # Bowel Movements 250 - Labs CBC & Chem 7: 07/10/20 07:17 07/10/20 07:17 Labs: Abnormal Lab Results - Last 24 Hours (Table) 07/09/20 07/09/20 07/10/20 Range/Units 17:01 20:37 06:17 WBC (3.8-10.6) k/uL RBC (4.30-5.90) m/uL Hgb (13.0-17.5) gm/dL Hct (39.0-53.0) % Neutrophils # (1.3-7.7) k/uL Monocytes # (0-1.0) k/uL Sodium (137-145) mmol/L Glucose (74-99) mg/dL POC Glucose (mg/dL) 148 H 159 H 109 H (75-99) mg/dL Calcium (8.4-10.2) mg/dL 07/10/20 07/10/20 07/10/20 Range/Units 07:17 07:17 11:22 WBC 14.8 H (3.8-10.6) k/uL RBC 3.18 L (4.30-5.90) m/uL Hgb 9.6 L (13.0-17.5) gm/dL Hct 31.0 L (39.0-53.0) % Neutrophils # 12.0 H (1.3-7.7) k/uL Monocytes # 1.1 H (0-1.0) k/uL Sodium 136 L (137-145) mmol/L Glucose 112 H (74-99) mg/dL POC Glucose (mg/dL) 159 H (75-99) mg/dL Calcium 7.5 L (8.4-10.2) mg/dL Microbiology - Last 24 Hours (Table) 07/07/20 18:40 Blood Culture - Preliminary Blood No Growth after 48 hours 07/08/20 11:10 Gram Stain - Preliminary Abdomen Wound Culture - Preliminary Gram Neg Bacilli Gram Neg Bacilli#2
--- NOTE | 2020-07-10 15:24 | P.PN ---
Subjective Progress Note Date: 07/10/20 The patient underwent angioplasty with stenting yesterday. He feels well today. Tolerating a diet. No nausea or vomiting. Still having fairly high ileostomy output. Objective - Vital Signs Vital signs: Vital Signs Temp 98.2 F 07/10/20 11:23 Pulse 96 07/10/20 12:00 Resp 16 07/10/20 12:00 BP 100/57 07/10/20 11:23 Pulse Ox 96 07/10/20 11:23 Intake & Output 07/09/20 07/10/20 07/10/20 18:59 06:59 18:59 Intake Total 1000 365 Output Total 1525 600 375 Balance -525 -600 -10 Weight 93.5 kg Intake: IV 800 Oral 200 365 Output: Urine 350 500 275 Stool 1175 100 100 Other: Voiding Method Urinal # Bowel Movements 200 - Gastrointestinal Gastrointestinal Comment(s): Ileostomy pink and viable with watery output. There is some fibrous material present. - Labs CBC & Chem 7: 07/10/20 07:17 07/10/20 07:17 Labs: Abnormal Lab Results - Last 24 Hours (Table) 07/09/20 07/09/20 07/10/20 Range/Units 17:01 20:37 06:17 WBC (3.8-10.6) k/uL RBC (4.30-5.90) m/uL Hgb (13.0-17.5) gm/dL Hct (39.0-53.0) % Neutrophils # (1.3-7.7) k/uL Monocytes # (0-1.0) k/uL Sodium (137-145) mmol/L Glucose (74-99) mg/dL POC Glucose (mg/dL) 148 H 159 H 109 H (75-99) mg/dL Calcium (8.4-10.2) mg/dL 07/10/20 07/10/20 07/10/20 Range/Units 07:17 07:17 11:22 WBC 14.8 H (3.8-10.6) k/uL RBC 3.18 L (4.30-5.90) m/uL Hgb 9.6 L (13.0-17.5) gm/dL Hct 31.0 L (39.0-53.0) % Neutrophils # 12.0 H (1.3-7.7) k/uL Monocytes # 1.1 H (0-1.0) k/uL Sodium 136 L (137-145) mmol/L Glucose 112 H (74-99) mg/dL POC Glucose (mg/dL) 159 H (75-99) mg/dL Calcium 7.5 L (8.4-10.2) mg/dL Microbiology - Last 24 Hours (Table) 07/07/20 18:40 Blood Culture - Preliminary Blood No Growth after 48 hours 07/08/20 11:10 Gram Stain - Preliminary Abdomen Wound Culture - Preliminary Gram Neg Bacilli Gram Neg Bacilli#2 Assessment and Plan (1) Postoperative dehiscence of skin wound Current Visit: Yes Status: Acute Code(s): T81.31XA - DISRUPTION OF EXTERNAL OPERATION (SURGICAL) WOUND, NEC, INIT SNOMED Code(s): 271452682 (2) Non-STEMI (non-ST elevated myocardial infarction) Current Visit: Yes Status: Acute Code(s): I21.4 - NON-ST ELEVATION (NSTEMI) MYOCARDIAL INFARCTION SNOMED Code(s): 59504427 Plan: The patient's receiving local wound care. He still has fairly high, watery ileostomy output. He is receiving Lomotil 3 times a day. We started twice a day Metamucil, that will be increased to 3 times a day. I'll also had some twice a day codeine to slow GI function. Progressing slowly
[2020-07-10] MEDS: PIPERACILLIN-TAZOBACTAM 3.375 GM in SODIUM CHLORIDE 0.9% 100 ML IVPB SCH ×2 (16:09→23:05)
[2020-07-10] MEDS: SODIUM CHLORIDE 0.9% 1,000 ML IV SCH (16:10)
[2020-07-10 16:50] LABS: Glucose,Whole Blood 210 mg/dL (75-99)
--- NOTE | 2020-07-10 19:52 | P.PN ---
Subjective this is a pleasant 69 years old male with past medical history of asthma, CVA/TIA, diabetes mellitus, hearing disorder, hyperlipidemia, hypertension, chronic back pain, Crohn's disease and he is steroid dependent. He was recently discharge by surgical service for colonic stricture secondary to his Crohn's disease, he underwent subtotal colectomy and ileostomy formation. patient presents this time because his ostomy stitches opened up over the weekend spontaneously. And on presentation patient was found to have elevated cardiac enzymes However patient denies any symptoms he denies chest pain or dyspnea or abdominal pain, no palpitation or dizziness or coughing or headache or weakness or change in urine or bowel habits. He denies fever. He walks a little bit which is his baseline as he states he denies smoking, alcohol or ILLICIT drugs On examination there is some mild erythema and the stitches side and of the lower side of the surgical wound there is a superficial ulcer about 1 cm with some purulent discharge at the base close to the ostomy back. Ostomy bag has semisolid yellow-brown stool she is tachycardic at 122,postop vitals are stable.she has leukocytosis of 18.9 K, no some when she was discharge was 14-16 K.troponin is elevated 2.9, 4.4 and 5.6. BMP and liver enzymes are not elevated. EKG shows sinus tachycardia at 138 with a slight lateral ST depression and change, chest x-ray:no heart failure in the emergency roompatient was started on heparin drip and aspirin 325 mg daily and normal saline at 80 mL per hour 07/09/2020 Patient lying comfortable in bed. No chest pain or dyspnea. Cardiac cath showing 95% stenosis of the LAD, for stent placement and cardiology are following. Currently he is on dual antiplatelet therapy with aspirin and Plavix. His wound dressing is in place, surgery team following the patient. Once culture is pending and him remains on Unasyn WBC is 19.1 K, hemoglobin is 10.7, platelets 356. BMP is unremarkable. 07/10/2020 Patient with no chest pain or other cardiac symptoms, cardiology on the case and recommended to continue with the same treatment with aspirin and Plavix and they cleared the patient for discharge however is still complaining of from infection at the surgical wound of the abdomen. Once culture is growing gram-negative bacilli 2, final results of cultures pending. Consult infectious disease for further recommendation. Currently patient continue on Unasyn, WBCs is coming down to 14 K. Surgery team on the case and they are managing estomy function Patient transferred [facility] to general medical floor Objective - Vital Signs Vital signs: Vital Signs Temp 98.2 F 07/10/20 11:23 Pulse 96 07/10/20 12:00 Resp 16 07/10/20 12:00 BP 100/57 07/10/20 11:23 Pulse Ox 96 07/10/20 11:23 Intake & Output 07/09/20 07/10/20 07/10/20 18:59 06:59 18:59 Intake Total 1000 365 Output Total 1525 600 375 Balance -525 -600 -10 Weight 93.5 kg Intake: IV 800 Oral 200 365 Output: Urine 350 500 275 Stool 1175 100 100 Other: Voiding Method Urinal # Bowel Movements 200 - Exam GENERAL: The patient is alert and oriented x3, not in any acute distress. Well developed, well nourished. HEENT: Pupils are round and equally reacting to light. EOMI. No scleral icterus. No conjunctival pallor. Normocephalic, atraumatic. No pharyngeal erythema. No thyromegaly. CARDIOVASCULAR: S1 and S2 present. No murmurs, rubs, or gallops. PULMONARY: Chest is clear to auscultation, no wheezing or crackles. -ABDOMEN: Soft, nontender, nondistended, normoactive bowel sounds. No palpable organomegaly. On examination there is some mild erythema and the stitches side and of the lower side of the surgical wound there is a superficial ulcer about 1 cm with some purulent discharge at the base close to the ostomy back. Ostomy bag has semisolid yellow-brown stool MUSCULOSKELETAL: No joint swelling or deformity. EXTREMITIES: No cyanosis, clubbing, or pedal edema. NEUROLOGICAL: Gross neurological examination did not reveal any focal deficits. SKIN: No rashes. No petechiae - Labs CBC & Chem 7: 07/10/20 07:17 07/10/20 07:17 Labs: Abnormal Lab Results - Last 24 Hours (Table) 07/09/20 07/09/20 07/10/20 Range/Units 17:01 20:37 06:17 WBC (3.8-10.6) k/uL RBC (4.30-5.90) m/uL Hgb (13.0-17.5) gm/dL Hct (39.0-53.0) % Neutrophils # (1.3-7.7) k/uL Monocytes # (0-1.0) k/uL Sodium (137-145) mmol/L Glucose (74-99) mg/dL POC Glucose (mg/dL) 148 H 159 H 109 H (75-99) mg/dL Calcium (8.4-10.2) mg/dL 07/10/20 07/10/20 07/10/20 Range/Units 07:17 07:17 11:22 WBC 14.8 H (3.8-10.6) k/uL RBC 3.18 L (4.30-5.90) m/uL Hgb 9.6 L (13.0-17.5) gm/dL Hct 31.0 L (39.0-53.0) % Neutrophils # 12.0 H (1.3-7.7) k/uL Monocytes # 1.1 H (0-1.0) k/uL Sodium 136 L (137-145) mmol/L Glucose 112 H (74-99) mg/dL POC Glucose (mg/dL) 159 H (75-99) mg/dL Calcium 7.5 L (8.4-10.2) mg/dL Microbiology - Last 24 Hours (Table) 07/07/20 18:40 Blood Culture - Preliminary Blood No Growth after 48 hours 07/08/20 11:10 Gram Stain - Preliminary Abdomen Wound Culture - Preliminary Gram Neg Bacilli Gram Neg Bacilli#2 Assessment and Plan Assessment: elevated troponin, suspicious for non-STEMI, status post cardiac cath surgical abdominal wound infection. recent history of Colonic stricture secondary to Crohn's disease status post subtotal colectomy and ileostomy formation Hyperlipidemia Hypertension Transient hypotensive, improved with fluids and steroids History of CVA/TIA with some residual blood test Hearing difficulty Chronic back pain Leukocytosis secondary to steroid effect and reactive from surgery Plan: this is a pleasant 69 years old male who presents with surgical wound infection and high troponin.Continue with Plavix and aspirin. Follow-up recommendation by surgery and Cardiology consult. Continue with Unasyn and follow-up wound culture Labs and medication were reviewed.. Continue same treatment. Continue with symptomatic treatment. Resume home medication. Monitor lytes and vitals. DVT and GI prophylaxis. Further recommendationsas per clinical course of the patient DVT prophylaxis:sc heparin GI Prophylaxis: Pepcid
[2020-07-10 20:15] LABS: Glucose,Whole Blood 222 mg/dL (75-99)
[2020-07-10] MEDS: CODEINE 30 MG TAB PO SCH (20:56)
[2020-07-10] MEDS: ATORVASTATIN 80 MG TAB PO SCH (20:56)
--- NOTE | 2020-07-10 23:33 | P.CONS ---
History of Present Illness - Reason for Consult Consult date: 07/10/20 Abdominal wound infection Requesting physician: Xavier E Sheet - Chief Complaint Abdominal wound dehiscence x few days - History of Present Illness Patient is a 69-year-old male with past medical history significant for Crohn's disease in this patient who is status post subtotal colectomy and ileostomy formation recently at this facility patient presenting to the ER at [facility] with concern for dehiscence of his lower abdominal wound spontaneously patient did have mild aching pain in the area before the area started to drain intensity rated 4 out of 10 and no radiation patient denies having any fever or any chills and no fever has been recorded this hospital stay patient did have elevated white count of 18.9 on admission and that is down to 14.8, patient did have local wound cultures obtained from his lower abdominal wound which is growing Klebsiella and E. coli that prompted these infections this consultation patient also have elevated cardiac enzymes and has been managed by cardiology status post cardiac cath in the duration p atient currently denies having any chest pain or shortness of cough no nausea no vomitingAbdominal pain did have high output in his ileostomy bag Review of Systems Positive point has been mentioned in the HPI rest of the systems are negative Past Medical History Past Medical History: Asthma, CVA/TIA, Diabetes Mellitus, Hearing Disorder / Deafness, Hyperlipidemia, Hypertension, Prostate Disorder, Renal Disease Additional Past Medical History / Comment(s): 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 History of Any Multi-Drug Resistant Organisms: C-DIFF, MRSA Year Discovered:: January 2015 (At [facility] per patient) MDRO Source:: Right Ankle and Back (per patient) Past Surgical History: Adenoidectomy, Bowel Resection, Orthopedic Surgery, Tonsillectomy Additional Past Surgical History / Comment(s): 01/2015 Laminectomy, discectomy with decompression L5-S1, I&D epidural abscess L5-S1 (STATED HAD MULTIPLE BX- BENIGN)and aspiration R ankle, [place] [facility] [place] . left wrist surgically repaired after fx-PLATE/SCREW. RT HIP TEVIN/SCREWS. Past Anesthesia/Blood Transfusion Reactions: No Reported Reaction Additional Past Anesthesia/Blood Transfusion Reaction / Comm: Pt states he recieved blood 02/2015 at [facility] without reaction. Past Psychological History: No Psychological Hx Reported Additional Psychological History / Comment(s): Pt resideswith daughter. Drives, has dogs. Smoking Status: Former smoker, Never smoker Past Alcohol Use History: None Reported Additional Past Alcohol Use History / Comment(s): Patient has a history of smoking marijuana half ounce per day and quit in 1998. He denies any alcohol use SINCE 1975. Past Drug Use History: None Reported Additional Drug Use History / Comment(s): No current use. - Past Family History Father Family Medical History: Myocardial Infarction (MA) Additional Family Medical History / Comment(s): Father of massive MA. Mother Family Medical History: Diabetes Mellitus Medications and Allergies Home Medications Medication Instructions Recorded Confirmed Type Acetaminophen Tab [Tylenol] 650 mg PO DIRECTED PRN 02/14/19 07/07/20 History Budesonide-Formot 160-4.5 Mcg 2 puff INHALATION RT-BID PRN 06/11/20 07/07/20 History [Symbicort 160-4.5 Mcg Inhaler] Finasteride [Proscar] 5 mg PO DAILY 06/11/20 07/07/20 History Multivit-Min/FA/Lycopen/Lutein 1 each PO DAILY 06/11/20 07/07/20 History [Centrum Silver Tablet] Diphenoxylate HCl/Atropine 1 tab PO TID 30 Days #90 tab 07/02/20 07/07/20 Rx [Lomotil 2.5-0.025 mg Tablet] Fexofenadine HCl [Dara Allergy] 60 mg PO DAILY 07/07/20 07/07/20 History carvediloL [Coreg] 3.125 mg PO BID 07/07/20 07/07/20 History glyBURIDE [Diabeta] 5 mg PO BID 07/07/20 07/07/20 History lisinopriL [Zestril] 10 mg PO DAILY 07/07/20 07/07/20 History predniSONE 15 mg PO DAILY MDD 25mg PRN 07/07/20 07/07/20 History Aspirin 81 mg PO DAILY chew 07/10/20 Rx Atorvastatin [Lipitor] 80 mg PO HS #90 tab 07/10/20 Rx Clopidogrel [Plavix] 75 mg PO DAILY #90 tab 07/10/20 Rx Allergies Allergy/AdvReac Type Severity Reaction Status Date / Time No Known Allergies Allergy Verified 07/07/20 21:45 Physical Exam Vitals: Vital Signs Temp Pulse Resp BP BP Pulse Ox 07/10/20 12:00 96 16 07/10/20 11:23 98.2 F 96 16 100/57 96 07/10/20 08:00 99.2 F 90 18 105/64 95 07/10/20 03:20 98.3 F 82 18 123/70 97 07/09/20 23:05 98.3 F 86 18 100/62 94 L 07/09/20 21:25 17 07/09/20 20:20 94 L 07/09/20 20:09 97.7 F 96 96/52 90 L 07/09/20 15:36 84 16 Intake and Output 07/09/20 07/10/20 07/10/20 22:59 06:59 14:59 Intake Total 200 365 Output Total 800 600 100 Balance -600 -600 265 Intake: Oral 200 365 Output: Urine 350 500 Stool 450 100 100 Other: Voiding Method Urinal Urinal # Bowel Movements 250 Weight 93.5 kg GENERAL DESCRIPTION: Elderly male lying in bed, no distress. No tachypnea or accessory muscle of respiration use. HEENT: Shows Pallor , no scleral icterus. Oral mucous membrane is dry. No pharyngeal erythema or thrush NECK: Trachea central, no thyromegaly. LUNGS: Unlabored breathing. Decreased present at the base. No wheeze or crackle. HEART: S1, S2, regular rate and rhythm. No loud murmur ABDOMEN: Soft, lower abdominal wound from incision dehiscence minimal surrounding redness and drainage EXTREMITIES: No edema of feet. SKIN: No rash, no masses palpable. NEUROLOGICAL: The patient is awake, alert, oriented x3, mood and affect normal. Results CBC & Chem 7: 07/10/20 07:17 07/10/20 07:17 Labs: Abnormal Lab Results - Last 24 Hours (Table) 07/09/20 07/09/20 07/10/20 Range/Units 17:01 20:37 06:17 WBC (3.8-10.6) k/uL RBC (4.30-5.90) m/uL Hgb (13.0-17.5) gm/dL Hct (39.0-53.0) % Neutrophils # (1.3-7.7) k/uL Monocytes # (0-1.0) k/uL Sodium (137-145) mmol/L Glucose (74-99) mg/dL POC Glucose (mg/dL) 148 H 159 H 109 H (75-99) mg/dL Calcium (8.4-10.2) mg/dL 07/10/20 07/10/20 07/10/20 Range/Units 07:17 07:17 11:22 WBC 14.8 H (3.8-10.6) k/uL RBC 3.18 L (4.30-5.90) m/uL Hgb 9.6 L (13.0-17.5) gm/dL Hct 31.0 L (39.0-53.0) % Neutrophils # 12.0 H (1.3-7.7) k/uL Monocytes # 1.1 H (0-1.0) k/uL Sodium 136 L (137-145) mmol/L Glucose 112 H (74-99) mg/dL POC Glucose (mg/dL) 159 H (75-99) mg/dL Calcium 7.5 L (8.4-10.2) mg/dL Microbiology - Last 24 Hours (Table) 07/07/20 18:40 Blood Culture - Preliminary Blood No Growth after 48 hours 07/08/20 11:10 Gram Stain - Preliminary Abdomen Wound Culture - Preliminary Gram Neg Bacilli Gram Neg Bacilli#2 Assessment and Plan Assessment: 1- patient is 69-year-old male with a past medical history significant for colon disease in this patient with status post subtotal colectomy and ileostomy no present to the hospital with lower end of his abdominal incision opening up and drainage with minimal cellulitis and culture positive for E. coli and Klebsiella in this patient currently with no fever however did have elevated white count (1) Abdominal wall cellulitis Current Visit: Yes Status: Acute Code(s): L03.311 - CELLULITIS OF ABDOMINAL WALL SNOMED Code(s): 45177730 (2) Surgical wound dehiscence Current Visit: Yes Status: Acute Code(s): T81.31XA - DISRUPTION OF EXTERNAL OPERATION (SURGICAL) WOUND, NEC, INIT SNOMED Code(s): 33963432 Plan: 1- patient will benefit from CT of abdominal pelvis to make sure no evidence of any deep collection that may need to be drained 2-Zosyn 3.375 g every 8 hours 3-Aquacel silver packing of the wound daily We will follow on clinical condition and cultures to further adjust medication if needed Thank you for this consultation will follow this patient with you Time with Patient: Greater than 30
[2020-07-11] MEDS: SODIUM CHLORIDE 0.9% 1,000 ML IV SCH ×2 (01:50→12:49)
[2020-07-11 06:30] LABS: Basophils % (A) 0 %; Eosinophils # (A) 0.2 k/uL (0-0.7); Eosinophils % (A) 2 %; HCT 27.7 % (39.0-53.0); HGB 9.4 gm/dL (13.0-17.5); Hypochromasia Moderate; Lymphocytes # (A) 1.3 k/uL (1.0-4.8); Lymphocytes % (A) 11 %; MCH 32.9 pg (25.0-35.0); MCHC 34.1 g/dL (31.0-37.0); MCV 96.6 fL (80.0-100.0); Mean Platelet Volume 6.8; Monocytes # (A) 0.8 k/uL (0-1.0); Monocytes % (A) 6 %; Neutrophils # (A) 9.8 k/uL (1.3-7.7); Neutrophils % (A) 80 %; Platelet Count 254 k/uL (150-450); Poikilocytosis Slight; RBC 2.87 m/uL (4.30-5.90); RDW 14.5 % (11.5-15.5); WBC 12.2 k/uL (3.8-10.6)
[2020-07-11 06:41] LABS: African American GFR (CKD) >90 (>60 ml/min/1.73 sqM); Anion Gap 3 mmol/L; Blood Urea Nitrogen 13 mg/dL (9-20); Calcium 7.8 mg/dL (8.4-10.2); Carbon Dioxide 27 mmol/L (22-30); Chloride 103 mmol/L (98-107); Glucose 159 mg/dL (74-99); Non-African American GFR(CKD) >90 (>60 ml/min/1.73 sqM); Potassium 3.6 mmol/L (3.5-5.1); Sodium 133 mmol/L (137-145)
[2020-07-11 07:52] LABS: Glucose,Whole Blood 145 mg/dL (75-99)
[2020-07-11] MEDS: lisinopriL 5 MG TAB PO SCH (08:30)
[2020-07-11] MEDS: HEPARIN SODIUM,PORCINE 5,000 UNIT/ML 1 ML VIAL SQ SCH ×2 (08:30→21:28)
[2020-07-11] MEDS: DIPHENOX-ATROP 2.5-0.025 MG 1 EACH TAB PO SCH ×3 (08:30→21:27)
[2020-07-11] MEDS: INSULIN ASPART (NovoLOG) 100 UNIT/ML VIAL SQ SCH ×4 (08:30→21:28)
[2020-07-11] MEDS: MONTELUKAST 10 MG TAB PO SCH (08:30)
[2020-07-11] MEDS: PSYLLIUM HUSK 100% 6 GM PACKET PO SCH ×4 (08:31→21:40)
[2020-07-11] MEDS: MULTIVITAMINS, THERA 1 EACH TAB PO SCH (08:31)
[2020-07-11] MEDS: CODEINE 30 MG TAB PO SCH ×2 (08:31→21:27)
[2020-07-11] MEDS: CLOPIDOGREL 75 MG TAB PO SCH (08:31)
[2020-07-11] MEDS: carvediloL 3.125 MG TAB PO SCH ×2 (08:31→16:07)
[2020-07-11] MEDS: FINASTERIDE 5 MG TAB PO SCH (08:31)
[2020-07-11] MEDS: ASPIRIN 81 MG PO SCH (08:31)
[2020-07-11] MEDS: PIPERACILLIN-TAZOBACTAM 3.375 GM in SODIUM CHLORIDE 0.9% 100 ML IVPB SCH ×2 (08:32→16:06)
[2020-07-11] MEDS: SYMBICORT 160-4.5 MCG INHALER INHALATION PRN ×2 (09:16→19:48)
[2020-07-11 11:27] LABS: Glucose,Whole Blood 258 mg/dL (75-99)
[2020-07-11] MEDS: IOPAMIDOL CONTRAST (ORAL USE) VIAL PO PRN ×2 (13:24→14:24)
--- NOTE | 2020-07-11 13:59 | PN ---
PROGRESS NOTE DATE OF SERVICE: 07/11/2020 REASON FOR FOLLOW UP: Abdominal wound dehiscence and infection. INTERVAL HISTORY: Patient is currently afebrile. The patient is breathing comfortably. Denies having any chest pain. No shortness of breath or cough. No worsening abdominal pain or diarrhea. PHYSICAL EXAMINATION: Blood pressure is 112/73, pulse of 80, temperature 98.9. She is 96% on room air. General description is an elderly male lying in bed in no distress. Respiratory system: Unlabored breathing, clear to auscultation anteriorly. Heart S1, S2. Regular rate and rhythm. Extremities: No edema of the feet. LABS: White count elevated to 12,000. IMPRESSION/PLAN: Patient with abdominal wound dehiscence with recent subtotal colectomy with wound culture positive for E coli and Klebsiella. CT of abdomen and pelvis showed no evidence of any deep collection that may needs to be drained. Continue Zosyn and monitor clinical course closely. MMODL / IJN: [id number] /
--- NOTE | 2020-07-11 15:53 | CT ---
EXAMINATION TYPE: CT abdomen pelvis w con DATE OF EXAM: 07/11/2020 COMPARISON: 12/29/2018 HISTORY: Abdominal wound, possible abscess. CT DLP: 1822.1 mGycm Automated exposure control for dose reduction was used. CONTRAST: Performed with IV Contrast, patient injected with 100 mL of Isovue 300. There is patchy airspace consolidation and atelectasis at both lung bases. There is coronary artery c alcification. Heart size is normal. There is no pericardial effusion. There is no pleural effusion. G allbladder is slightly contracted. Stomach is large. Spleen is intact. There is no dilated ducts. Noemi er shows no focal defect. There is 6.5 cm rounded cystic mass on the anterior aspect of the pancreati c head. This contains a small air bubble. There is 8.5 x 5.3 cm cystic fluid collection with air bubb les in the right paracolic gutter. This is adjacent to the right lobe of the liver. There is no adrenal mass. Kidneys show satisfactory contrast opacification. There is no hydronephrosi s. Delayed images show normal renal excretion. There is 3 cm cortical cyst upper pole right kidney. T here is no retroperitoneal adenopathy. The bladder distends smoothly. Prostate measures 4.5 cm. There is no inguinal hernia. There appears to be a total colectomy. There is some fluid and air in the rec meagan stump. There is no evidence of pneumoperitoneum. There is ileostomy in the right mid abdomen. There is osteopenia with anterior wedging of L1 T12 T11 vertebra to 50% the bony pelvis appears intac t. IMPRESSION: There are 2 cystic fluid collections in the abdomen containing small air bubbles. These could BE post surgical abscesses and are a change compared to old exam. There is been apparent total colectomy com pared to old exam. There is bilateral lower lobe pulmonary consolidation and atelectasis that is essentially new compare d to old exam.
[2020-07-11 17:10] LABS: Glucose,Whole Blood 197 mg/dL (75-99)
[2020-07-11 21:03] LABS: Glucose,Whole Blood 157 mg/dL (75-99)
[2020-07-11] MEDS: ATORVASTATIN 80 MG TAB PO SCH (21:28)
--- NOTE | 2020-07-11 22:18 | P.PN ---
Subjective this is a pleasant 69 years old male with past medical history of asthma, CVA/TIA, diabetes mellitus, hearing disorder, hyperlipidemia, hypertension, chronic back pain, Crohn's disease and he is steroid dependent. He was recently discharge by surgical service for colonic stricture secondary to his Crohn's disease, he underwent subtotal colectomy and ileostomy formation. patient presents this time because his ostomy stitches opened up over the weekend spontaneously. And on presentation patient was found to have elevated cardiac enzymes However patient denies any symptoms he denies chest pain or dyspnea or abdominal pain, no palpitation or dizziness or coughing or headache or weakness or change in urine or bowel habits. He denies fever. He walks a little bit which is his baseline as he states he denies smoking, alcohol or ILLICIT drugs On examination there is some mild erythema and the stitches side and of the lower side of the surgical wound there is a superficial ulcer about 1 cm with some purulent discharge at the base close to the ostomy back. Ostomy bag has semisolid yellow-brown stool she is tachycardic at 122,postop vitals are stable.she has leukocytosis of 18.9 K, no some when she was discharge was 14-16 K.troponin is elevated 2.9, 4.4 and 5.6. BMP and liver enzymes are not elevated. EKG shows sinus tachycardia at 138 with a slight lateral ST depression and change, chest x-ray:no heart failure in the emergency roompatient was started on heparin drip and aspirin 325 mg daily and normal saline at 80 mL per hour 07/09/2020 Patient lying comfortable in bed. No chest pain or dyspnea. Cardiac cath showing 95% stenosis of the LAD, for stent placement and cardiology are following. Currently he is on dual antiplatelet therapy with aspirin and Plavix. His wound dressing is in place, surgery team following the patient. Once culture is pending and him remains on Unasyn WBC is 19.1 K, hemoglobin is 10.7, platelets 356. BMP is unremarkable. 07/10/2020 Patient with no chest pain or other cardiac symptoms, cardiology on the case and recommended to continue with the same treatment with aspirin and Plavix and they cleared the patient for discharge however is still complaining of from infection at the surgical wound of the abdomen. Once culture is growing gram-negative bacilli 2, final results of cultures pending. Consult infectious disease for further recommendation. Currently patient continue on Unasyn, WBCs is coming down to 14 K. Surgery team on the case and they are managing estomy function Patient transferred from [facility] to general medical floor 07/11/2020 Patient lying in bed comfortable with no chest pain or dyspnea, wound at the surgical site is stable, dressing is in place. Once culture is growing Klebsiella and E. coli both are sensitive to antibiotic. CT of the abdomen and pelvis showed 2 cystic fluid collection in the abdomen possible postsurgical abscesses. Surgery team on the case already. WBCs trending down slowly to 12 K today. Patient remains on antibiotics in the form of Zosyn Objective - Vital Signs Vital signs: Vital Signs Temp 98.7 F 07/11/20 15:00 Pulse 81 07/11/20 15:00 Resp 20 07/11/20 15:00 BP 119/73 07/11/20 15:00 Pulse Ox 97 07/11/20 15:00 Intake & Output 07/11/20 07/11/20 07/12/20 06:59 18:59 06:59 Output Total 50 500 Balance -50 -500 Weight 91 kg Output: Urine 50 500 Other: Voiding Method Urinal # Voids 1 - Exam GENERAL: The patient is alert and oriented x3, not in any acute distress. Well developed, well nourished. HEENT: Pupils are round and equally reacting to light. EOMI. No scleral icterus. No conjunctival pallor. Normocephalic, atraumatic. No pharyngeal erythema. No thyromegaly. CARDIOVASCULAR: S1 and S2 present. No murmurs, rubs, or gallops. PULMONARY: Chest is clear to auscultation, no wheezing or crackles. -ABDOMEN: Soft, nontender, nondistended, normoactive bowel sounds. No palpable organomegaly. On examination there is some mild erythema and the stitches side and of the lower side of the surgical wound there is a superficial ulcer about 1 cm with some purulent discharge at the base close to the ostomy back. Ostomy bag has semisolid yellow-brown stool MUSCULOSKELETAL: No joint swelling or deformity. EXTREMITIES: No cyanosis, clubbing, or pedal edema. NEUROLOGICAL: Gross neurological examination did not reveal any focal deficits. SKIN: No rashes. No petechiae - Labs CBC & Chem 7: 07/11/20 05:51 07/11/20 05:51 Labs: Abnormal Lab Results - Last 24 Hours (Table) 07/11/20 07/11/20 07/11/20 Range/Units 05:51 05:51 07:06 WBC 12.2 H (3.8-10.6) k/uL RBC 2.87 L (4.30-5.90) m/uL Hgb 9.4 L (13.0-17.5) gm/dL Hct 27.7 L (39.0-53.0) % Neutrophils # 9.8 H (1.3-7.7) k/uL Sodium 133 L (137-145) mmol/L Glucose 159 H (74-99) mg/dL POC Glucose (mg/dL) 145 H (75-99) mg/dL Calcium 7.8 L (8.4-10.2) mg/dL 07/11/20 07/11/20 07/11/20 Range/Units 11:23 17:08 21:01 WBC (3.8-10.6) k/uL RBC (4.30-5.90) m/uL Hgb (13.0-17.5) gm/dL Hct (39.0-53.0) % Neutrophils # (1.3-7.7) k/uL Sodium (137-145) mmol/L Glucose (74-99) mg/dL POC Glucose (mg/dL) 258 H 197 H 157 H (75-99) mg/dL Calcium (8.4-10.2) mg/dL Microbiology - Last 24 Hours (Table) 07/07/20 18:40 Blood Culture - Preliminary Blood No Growth after 96 hours 07/08/20 11:10 Gram Stain - Final Abdomen Wound Culture - Final Klebsiella pneumoniae Escherichia coli Assessment and Plan Assessment: elevated troponin, suspicious for non-STEMI, status post cardiac cath surgical abdominal wound infection. recent history of Colonic stricture secondary to Crohn's disease status post subtotal colectomy and ileostomy formation Hyperlipidemia Hypertension Transient hypotensive, improved with fluids and steroids History of CVA/TIA with some residual blood test Hearing difficulty Chronic back pain Leukocytosis secondary to steroid effect and reactive from surgery Plan: this is a pleasant 69 years old male who presents with surgical wound infection and high troponin.Continue with Plavix and aspirin. Follow-up recommendation by surgery and Cardiology consult. Continue with Zosyn Labs and medication were reviewed.. Continue same treatment. Continue with sy mptomatic treatment. Resume home medication. Monitor lytes and vitals. DVT and GI prophylaxis. Further recommendationsas per clinical course of the patient DVT prophylaxis:sc heparin GI Prophylaxis: Pepcid
[2020-07-12] MEDS: PIPERACILLIN-TAZOBACTAM 3.375 GM in SODIUM CHLORIDE 0.9% 100 ML IVPB SCH ×4 (00:20→23:22)
[2020-07-12] MEDS: SODIUM CHLORIDE 0.9% 1,000 ML IV SCH (00:23)
[2020-07-12 06:09] LABS: Basophils % (A) 0 %; Eosinophils # (A) 0.2 k/uL (0-0.7); Eosinophils % (A) 2 %; HCT 30.7 % (39.0-53.0); HGB 9.9 gm/dL (13.0-17.5); Hypochromasia Slight; Lymphocytes # (A) 1.3 k/uL (1.0-4.8); Lymphocytes % (A) 10 %; MCH 30.5 pg (25.0-35.0); MCHC 32.2 g/dL (31.0-37.0); MCV 94.7 fL (80.0-100.0); Mean Platelet Volume 6.9; Monocytes # (A) 0.9 k/uL (0-1.0); Monocytes % (A) 7 %; Neutrophils # (A) 10.7 k/uL (1.3-7.7); Neutrophils % (A) 80 %; Platelet Count 291 k/uL (150-450); Poikilocytosis Slight; RBC 3.25 m/uL (4.30-5.90); RDW 14.3 % (11.5-15.5); WBC 13.3 k/uL (3.8-10.6)
[2020-07-12] MEDS: INSULIN ASPART (NovoLOG) 100 UNIT/ML VIAL SQ SCH ×4 (06:55→20:33)
[2020-07-12 06:56] LABS: Glucose,Whole Blood 107 mg/dL (75-99)
[2020-07-12] MEDS: MONTELUKAST 10 MG TAB PO SCH (08:11)
[2020-07-12] MEDS: CLOPIDOGREL 75 MG TAB PO SCH (08:11)
[2020-07-12] MEDS: carvediloL 3.125 MG TAB PO SCH ×2 (08:11→16:26)
[2020-07-12] MEDS: MULTIVITAMINS, THERA 1 EACH TAB PO SCH (08:11)
[2020-07-12] MEDS: ASPIRIN 81 MG PO SCH (08:11)
[2020-07-12] MEDS: lisinopriL 5 MG TAB PO SCH (08:11)
[2020-07-12] MEDS: DIPHENOX-ATROP 2.5-0.025 MG 1 EACH TAB PO SCH ×3 (08:11→20:33)
[2020-07-12] MEDS: HEPARIN SODIUM,PORCINE 5,000 UNIT/ML 1 ML VIAL SQ SCH ×2 (08:12→20:33)
[2020-07-12] MEDS: FINASTERIDE 5 MG TAB PO SCH (08:12)
[2020-07-12] MEDS: CODEINE 30 MG TAB PO SCH ×2 (08:12→20:33)
[2020-07-12] MEDS: PSYLLIUM HUSK 100% 6 GM PACKET PO SCH (08:14)
[2020-07-12] MEDS: SYMBICORT 160-4.5 MCG INHALER INHALATION PRN ×2 (08:45→19:45)
[2020-07-12 11:40] LABS: Glucose,Whole Blood 118 mg/dL (75-99)
--- NOTE | 2020-07-12 11:43 | P.PN ---
Subjective Progress Note Date: 07/12/20 The patient is seen on rounds. He's tolerating a diet though he doesn't like the food here. He's been eating sandwiches. No nausea or vomiting. Denies abdominal pain. Objective - Vital Signs Vital signs: Vital Signs Temp 99.6 F 07/12/20 07:00 Pulse 82 07/12/20 07:00 Resp 20 07/12/20 07:00 BP 111/66 07/12/20 07:00 Pulse Ox 90 L 07/12/20 07:00 Intake & Output 07/11/20 07/12/20 07/12/20 18:59 06:59 18:59 Output Total 500 100 Balance -500 -100 Weight 91.5 kg Output: Urine 500 Stool 100 Other: Voiding Method Urinal # Voids 2 # Bowel Movements 2 - Constitutional General appearance: Present: cooperative, no acute distress - Gastrointestinal General gastrointestinal: Present: normal bowel sounds, soft Localized gastrointestinal: surgical scar: diffuse (Ileostomy is pink and viable. Output is still watery. Wound was just changed by nursing reports it is improving.) - Labs CBC & Chem 7: 07/12/20 05:25 07/11/20 05:51 Labs: Abnormal Lab Results - Last 24 Hours (Table) 07/11/20 07/11/20 07/12/20 Range/Units 17:08 21:01 05:25 WBC 13.3 H (3.8-10.6) k/uL RBC 3.25 L (4.30-5.90) m/uL Hgb 9.9 L (13.0-17.5) gm/dL Hct 30.7 L (39.0-53.0) % Neutrophils # 10.7 H (1.3-7.7) k/uL POC Glucose (mg/dL) 197 H 157 H (75-99) mg/dL 07/12/20 07/12/20 Range/Units 06:54 11:30 WBC (3.8-10.6) k/uL RBC (4.30-5.90) m/uL Hgb (13.0-17.5) gm/dL Hct (39.0-53.0) % Neutrophils # (1.3-7.7) k/uL POC Glucose (mg/dL) 107 H 118 H (75-99) mg/dL Microbiology - Last 24 Hours (Table) 07/07/20 18:40 Blood Culture - Preliminary Blood No Growth after 96 hours Assessment and Plan (1) Postoperative dehiscence of skin wound Current Visit: Yes Status: Acute Code(s): T81.31XA - DISRUPTION OF EXTERNAL OPERATION (SURGICAL) WOUND, NEC, INIT SNOMED Code(s): 209777237 (2) Non-STEMI (non-ST elevated myocardial infarction) Current Visit: Yes Status: Acute Code(s): I21.4 - NON-ST ELEVATION (NSTEMI) MYOCARDIAL INFARCTION SNOMED Code(s): 82431201 Plan: A since ileostomy output is still watery. He has been refusing the Metamucil due to the taste and texture. He is also receiving Lomotil and oral codeine pills. We'll change the Metamucil to a fiber tablet. I explained the benefit of fiber for the watery bowel movements as a bulking agent and cause less problems with the ileostomy appliance in hearing. Continue local wound care. There were fluid collections on his CT but clinically he is not showing signs of abscess.
[2020-07-12 12:12] VITALS: BMI 28.1
--- NOTE | 2020-07-12 13:06 | XR ---
EXAMINATION TYPE: XR chest 1V DATE OF EXAM: 07/12/2020 COMPARISON: 07/07/2020 HISTORY: 69 year-old male shortness of breath and wheezing TECHNIQUE: Single frontal view of the chest is obtained. FINDINGS: Slight asymmetric elevation right hemidiaphragm. Overall low lung volumes. The right heart margin is secondary obscured. Some patchy left basilar opacity is increased. IMPRESSION: Marked hypoventilatory changes. Patchy left basilar and retrocardiac atelectasis versus infiltrate. M uch of the right base is obscured due to the low lung volumes.
[2020-07-12 16:56] LABS: Glucose,Whole Blood 168 mg/dL (75-99)
--- NOTE | 2020-07-12 17:33 | P.PN ---
Subjective this is a pleasant 69 years old male with past medical history of asthma, CVA/TIA, diabetes mellitus, hearing disorder, hyperlipidemia, hypertension, chronic back pain, Crohn's disease and he is steroid dependent. He was recently discharge by surgical service for colonic stricture secondary to his Crohn's disease, he underwent subtotal colectomy and ileostomy formation. patient presents this time because his ostomy stitches opened up over the weekend spontaneously. And on presentation patient was found to have elevated cardiac enzymes However patient denies any symptoms he denies chest pain or dyspnea or abdominal pain, no palpitation or dizziness or coughing or headache or weakness or change in urine or bowel habits. He denies fever. He walks a little bit which is his baseline as he states he denies smoking, alcohol or ILLICIT drugs On examination there is some mild erythema and the stitches side and of the lower side of the surgical wound there is a superficial ulcer about 1 cm with some purulent discharge at the base close to the ostomy back. Ostomy bag has semisolid yellow-brown stool she is tachycardic at 122,postop vitals are stable.she has leukocytosis of 18.9 K, no some when she was discharge was 14-16 K.troponin is elevated 2.9, 4.4 and 5.6. BMP and liver enzymes are not elevated. EKG shows sinus tachycardia at 138 with a slight lateral ST depression and change, chest x-ray:no heart failure in the emergency roompatient was started on heparin drip and aspirin 325 mg daily and normal saline at 80 mL per hour 07/09/2020 Patient lying comfortable in bed. No chest pain or dyspnea. Cardiac cath showing 95% stenosis of the LAD, for stent placement and cardiology are following. Currently he is on dual antiplatelet therapy with aspirin and Plavix. His wound dressing is in place, surgery team following the patient. Once culture is pending and him remains on Unasyn WBC is 19.1 K, hemoglobin is 10.7, platelets 356. BMP is unremarkable. 07/10/2020 Patient with no chest pain or other cardiac symptoms, cardiology on the case and recommended to continue with the same treatment with aspirin and Plavix and they cleared the patient for discharge however is still complaining of from infection at the surgical wound of the abdomen. Once culture is growing gram-negative bacilli 2, final results of cultures pending. Consult infectious disease for further recommendation. Currently patient continue on Unasyn, WBCs is coming down to 14 K. Surgery team on the case and they are managing estomy function Patient transferred from [facility] to general medical floor 07/11/2020 Patient lying in bed comfortable with no chest pain or dyspnea, wound at the surgical site is stable, dressing is in place. Once culture is growing Klebsiella and E. coli both are sensitive to antibiotic. CT of the abdomen and pelvis showed 2 cystic fluid collection in the abdomen possible postsurgical abscesses. Surgery team on the case already. WBCs trending down slowly to 12 K today. Patient remains on antibiotics in the form of Zosyn 07/12/2020 Patient with no chest pain or however patient was noticed to be dyspneic and on examination he has wheezing. Also he has low-grade temperature of 99.9 His WBCs 13.3 K. Repeat chest x-ray today showing patchy infiltrate in the retrocardiac and left lung base suspicious for pneumonia. We will start him on duo nebs Patient is a long time ago exit smoker. We will add small dose of steroids. We will do aspiration precaution keep head of bed elevated at 30. He remains on Zosyn. Today I discussed the case with surgery team Dr. Phan, fluids collection seen in the CAT scan of the abdomen near the surgical wound no need to be drained Review of systems CONSTITUTIONAL: No fever, no malaise, no fatigue. HEENT: No recent visual problems or hearing problems. Denied any sore throat. CARDIOVASCULAR: No orthopnea, PND, no palpitations, no syncope. PULMONARY: No shortness of breath, no cough, no hemoptysis. GASTROINTESTINAL: No diarrhea, no nausea, no vomiting, no abdominal pain. Normoactive bowel sounds. NEUROLOGICAL: No headaches, no weakness, no numbness. Active Medications Generic Name Dose Route Start Last Admin Trade Name Freq PRN Reason Stop Dose Admin Acetaminophen 650 mg 07/07/20 21:04 Acetaminophen Tab 325 Mg Tab PO DIRECTED PRN Pain Albuterol/Ipratropium 3 ml 07/12/20 20:00 Ipratropium-Albuterol 3 Ml Neb INHALATION RT-TID JOHN Alprazolam 0.25 mg 07/08/20 11:19 Alprazolam 0.25 Mg Tab PO Q6HR PRN Mild Anxiety Alprazolam 0.5 mg 07/08/20 11:19 Alprazolam 0.5 Mg Tab PO Q6HR PRN Moderate Anxiety Aspirin 81 mg 07/09/20 09:00 07/12/20 08:11 Aspirin 81 Mg PO 81 mg DAILY JOHN Administration Atorvastatin Calcium 80 mg 07/10/20 21:00 07/11/20 21:28 Atorvastatin 80 Mg Tab PO 80 mg HS JOHN Administration Budesonide/Formoterol Fumarate 2 puff 07/08/20 09:00 07/12/20 08:45 Symbicort 160-4.5 Mcg Inhaler INHALATION 2 puff BID PRN Administration Shortness Of Breath Calcium Polycarbophil 625 mg 07/12/20 11:45 07/12/20 16:26 Calcium Polycarbophil 625 Mg Tab PO 625 mg TID JOHN Administration Carvedilol 3.125 mg 07/08/20 12:30 07/12/20 16:26 Carvedilol 3.125 Mg Tab PO 3.125 mg BID-W/MEALS JOHN Administration Clopidogrel Bisulfate 75 mg 07/10/20 09:00 07/12/20 08:11 Clopidogrel 75 Mg Tab PO 75 mg DAILY JOHN Administration Codeine Sulfate 15 mg 07/10/20 21:00 07/12/20 08:12 Codeine 30 Mg Tab PO 15 mg BID JOHN Administration Diphenoxylate HCl/Atropine 1 each 07/08/20 09:00 07/12/20 16:26 Diphenox-Atrop 2.5-0.025 Mg 1 Each Tab PO 1 each TID JOHN Administration Finasteride 5 mg 07/08/20 09:00 07/12/20 08:12 Finasteride 5 Mg Tab PO 5 mg DAILY JOHN Administration Heparin Sodium (Porcine) 5,000 unit 07/09/20 21:00 07/12/20 08:12 Heparin Sodium,Porcine 5,000 Unit/Ml 1 Ml Vial SQ 5,000 unit Q12HR JOHN Administration Piperacillin Sod/Tazobactam 100 mls @ 25 mls/hr 07/10/20 16:00 07/12/20 16:26 Sod 3.375 gm/ Sodium Chloride IVPB 25 mls/hr Q8HR JOHN Administration Insulin Aspart 0 unit 07/08/20 07:30 07/12/20 17:06 Insulin Aspart (Novolog) 100 Unit/Ml Vial SQ 2 unit ACHS JOHN Administration Protocol Lisinopril 5 mg 07/08/20 09:00 07/12/20 08:11 Lisinopril 5 Mg Tab PO 5 mg QAM JOHN Administration Methylprednisolone Sodium Succinate 40 mg 07/12/20 17:30 Methylprednisolone Sod Succi 40 Mg/Ml 1 Ml Vial IV Q12HR JOHN Montelukast Sodium 10 mg 07/08/20 09:00 07/12/20 08:11 Montelukast 10 Mg Tab PO 10 mg DAILY JOHN Administration Multivitamins 1 each 07/08/20 09:00 07/12/20 08:11 Multivitamins, Thera 1 Each Tab PO 1 each DAILY JOHN Administration Nitroglycerin 0.4 mg 07/08/20 11:19 Nitroglycerin Sl Tabs 0.4 Mg Tab SUBLINGUAL Q5M PRN Chest Pain Objective - Vital Signs Vital signs: Vital Signs Temp 99.6 F 07/12/20 15:00 Pulse 87 07/12/20 15:00 Resp 20 07/12/20 15:00 BP 102/64 07/12/20 15:00 Pulse Ox 93 L 07/12/20 15:00 Intake & Output 07/11/20 07/12/20 07/12/20 18:59 06:59 18:59 Intake Total 200 Output Total 500 100 Balance -500 -100 200 Weight 91.5 kg 91.5 kg Intake: Intake, IV Titration 200 Amount Piperacillin-Tazobactam 3 200 .375 gm In Sodium Chloride 0.9% 100 ml @ 25 mls/hr IVPB Q8HR [facility] Rx# :[id number] Output: Urine 500 Stool 100 Other: Voiding Method Urinal # Voids 2 # Bowel Movements 2 - Exam GENERAL: The patient is alert and oriented x3, not in any acute distress. Well developed, well nourished. HEENT: Pupils are round and equally reacting to light. EOMI. No scleral icterus. No conjunctival pallor. Normocephalic, atraumatic. No pharyngeal erythema. No thyromegaly. CARDIOVASCULAR: S1 and S2 present. No murmurs, rubs, or gallops. PULMONARY: Chest is clear to auscultation, no wheezing or crackles. -ABDOMEN: Soft, nontender, nondistended, normoactive bowel sounds. No palpable organomegaly. On examination there is some mild erythema and the stitches side and of the lower side of the surgical wound there is a superficial ulcer about 1 cm with some purulent discharge at the base close to the ostomy back. Ostomy bag has semisolid yellow-brown stool MUSCULOSKELETAL: No joint swelling or deformity. EXTREMITIES: No cyanosis, clubbing, or pedal edema. NEUROLOGICAL: Gross neurological examination did not reveal any focal deficits. SKIN: No rashes. No petechiae - Labs CBC & Chem 7: 07/12/20 05:25 07/11/20 05:51 Labs: Abnormal Lab Results - Last 24 Hours (Table) 07/11/20 07/12/20 07/12/20 Range/Units 21:01 05:25 06:54 WBC 13.3 H (3.8-10.6) k/uL RBC 3.25 L (4.30-5.90) m/uL Hgb 9.9 L (13.0-17.5) gm/dL Hct 30.7 L (39.0-53.0) % Neutrophils # 10.7 H (1.3-7.7) k/uL POC Glucose (mg/dL) 157 H 107 H (75-99) mg/dL 07/12/20 07/12/20 Range/Units 11:30 16:54 WBC (3.8-10.6) k/uL RBC (4.30-5.90) m/uL Hgb (13.0-17.5) gm/dL Hct (39.0-53.0) % Neutrophils # (1.3-7.7) k/uL POC Glucose (mg/dL) 118 H 168 H (75-99) mg/dL Microbiology - Last 24 Hours (Table) 07/07/20 18:40 Blood Culture - Preliminary Blood No Growth after 96 hours Assessment and Plan Assessment: Retroperitoneal and left lower lobe pneumonia, most likely aspiration pneumonia elevated troponin, suspicious for non-STEMI, status post cardiac cath surgical abdominal wound infection. Possible elements of acute COPD exacerbation recent history of Colonic stricture secondary to Crohn's disease status post subtotal colectomy and ileostomy formation Hyperlipidemia Hypertension Transient hypotensive, improved with fluids and steroids History of CVA/TIA with some residual blood test Hearing difficulty Chronic back pain Leukocytosis secondary to steroid effect and reactive from surgery Plan: this is a pleasant 69 years old male who presents with surgical wound infection and high troponin.Continue with Plavix and aspirin. Follow-up recommendation by surgery and Cardiology consult. Continue with Zosyn . Follow-up surgery recommendation. Continue with respiration precaution. Follow-up evaluation Labs and medication were reviewed.. Continue same treatment. Continue with symptomatic treatment. Resume home medication. Monitor lytes and vitals. DVT and GI prophylaxis. Further recommendationsas per clinical course of the patient DVT prophylaxis:sc heparin GI Prophylaxis: Pepcid
[2020-07-12] MEDS ORDERED: methylPREDNISolone SOD SUCCI 40 MG/ML 1 ML VIAL IV SCH (18:00)
[2020-07-12] MEDS: methylPREDNISolone SOD SUCCI 40 MG/ML 1 ML VIAL IV SCH (18:12)
[2020-07-12] MEDS: IPRATROPIUM-ALBUTEROL 3 ML NEB INHALATION SCH (19:44)
[2020-07-12 20:23] LABS: Glucose,Whole Blood 217 mg/dL (75-99)
[2020-07-12] MEDS: ATORVASTATIN 80 MG TAB PO SCH (20:33)
--- NOTE | 2020-07-13 03:08 | PN ---
PROGRESS NOTE DATE OF SERVICE: 07/12/2020 REASON FOR FOLLOWUP: Abdominal wound infection. INTERVAL HISTORY: The patient is currently afebrile. He is breathing comfortably. Denies having any chest pain. No shortness of breath. Minimal cough. No abdominal pain or diarrhea. PHYSICAL EXAMINATION: Blood pressure is 111/66, pulse of 82, temperature 99.6. General description is an elderly male lying in bed in no distress. RESPIRATORY SYSTEM: Unlabored breathing, clear to auscultation anteriorly. HEART: S1, S2. Regular rate and rhythm. ABDOMEN: Soft, no tenderness. LABS: Hemoglobin is 9.9, white count 13.3. DIAGNOSTIC IMPRESSION AND PLAN: Patient with abdominal wound dehiscence, now with CT suspicious for abscess and white count is trending up. Local culture positive Klebsiella and Escherichia coli. The patient covered with Zosyn. We discussed with Surgery for possible drainage of that fluid collection. Continue with supportive care. MMODL / IJN: [id number] /
[2020-07-13] MEDS: methylPREDNISolone SOD SUCCI 40 MG/ML 1 ML VIAL IV SCH ×2 (06:42→17:12)
[2020-07-13 06:52] LABS: Glucose,Whole Blood 312 mg/dL (75-99)
[2020-07-13 07:02] LABS: Basophils % (A) 0 %; Eosinophils % (A) 0 %; HGB 10.3 gm/dL (13.0-17.5); Hypochromasia Marked; Lymphocytes # (A) 0.6 k/uL (1.0-4.8); Lymphocytes % (A) 5 %; MCH 29.4 pg (25.0-35.0); MCHC 29.4 g/dL (31.0-37.0); Mean Platelet Volume 7.7; Monocytes # (A) 0.4 k/uL (0-1.0); Monocytes % (A) 3 %; Neutrophils # (A) 10.4 k/uL (1.3-7.7); Neutrophils % (A) 91 %; Platelet Count 249 k/uL (150-450); RDW 14.3 % (11.5-15.5); WBC 11.4 k/uL (3.8-10.6)
[2020-07-13 07:14] LABS: MCV 99.8 fL (80.0-100.0)
[2020-07-13] MEDS: PIPERACILLIN-TAZOBACTAM 3.375 GM in SODIUM CHLORIDE 0.9% 100 ML IVPB SCH ×3 (07:21→18:08)
[2020-07-13] MEDS: HEPARIN SODIUM,PORCINE 5,000 UNIT/ML 1 ML VIAL SQ SCH ×2 (07:22→22:41)
[2020-07-13] MEDS: INSULIN ASPART (NovoLOG) 100 UNIT/ML VIAL SQ SCH ×4 (07:23→19:00)
[2020-07-13] MEDS: FINASTERIDE 5 MG TAB PO SCH (07:24)
[2020-07-13] MEDS: CLOPIDOGREL 75 MG TAB PO SCH (07:24)
[2020-07-13] MEDS: DIPHENOX-ATROP 2.5-0.025 MG 1 EACH TAB PO SCH ×3 (07:24→22:41)
[2020-07-13] MEDS: MONTELUKAST 10 MG TAB PO SCH (07:24)
[2020-07-13] MEDS: MULTIVITAMINS, THERA 1 EACH TAB PO SCH (07:24)
[2020-07-13] MEDS: CODEINE 30 MG TAB PO SCH ×2 (07:32→23:20)
[2020-07-13] MEDS: carvediloL 3.125 MG TAB PO SCH ×3 (07:33→17:12)
[2020-07-13] MEDS: ASPIRIN 81 MG PO SCH (07:33)
[2020-07-13] MEDS: lisinopriL 5 MG TAB PO SCH (07:33)
[2020-07-13] MEDS: SYMBICORT 160-4.5 MCG INHALER INHALATION PRN (08:07)
[2020-07-13] MEDS: IPRATROPIUM-ALBUTEROL 3 ML NEB INHALATION SCH ×3 (08:07→19:22)
[2020-07-13 10:58] LABS: African American GFR (CKD) 102.1 (60.0-200.0); Anion Gap 16.3 mmol/L (4.00-12.00); BUN/Creat Ratio 16.67 Ratio (12.00-20.00); Calcium 8.5 mg/dL (8.7-10.3); Carbon Dioxide 19.7 mmol/L (21.6-31.8); Non-African American GFR(CKD) 88.1 (60.0-200.0); Potassium 4.9 mmol/L (3.5-5.5)
[2020-07-13 11:27] LABS: Glucose,Whole Blood 398 mg/dL (75-99)
[2020-07-13 13:21] LABS: Glucose,Whole Blood 395 mg/dL (75-99)
[2020-07-13] MEDS: metFORMIN 500 MG TAB PO SCH ×2 (13:32→17:12)
[2020-07-13 16:43] LABS: Glucose,Whole Blood 483 mg/dL (75-99)
[2020-07-13] MEDS ORDERED: INSULIN REGULAR 100 UNIT in SODIUM CHLORIDE 0.9% 100 ML IV SCH (17:00)
[2020-07-13 18:08] LABS: Glucose,Whole Blood 439 mg/dL (75-99)
[2020-07-13 18:39] LABS: Glucose,Whole Blood 410 mg/dL (75-99)
[2020-07-13 19:10] LABS: Glucose,Whole Blood 367 mg/dL (75-99)
[2020-07-13 19:36] LABS: Glucose,Whole Blood 289 mg/dL (75-99)
[2020-07-13 20:08] LABS: Glucose,Whole Blood 229 mg/dL (75-99)
[2020-07-13 22:05] LABS: Glucose,Whole Blood 166 mg/dL (75-99)
--- NOTE | 2020-07-13 22:28 | P.PN ---
Subjective this is a pleasant 69 years old male with past medical history of asthma, CVA/TIA, diabetes mellitus, hearing disorder, hyperlipidemia, hypertension, chronic back pain, Crohn's disease and he is steroid dependent. He was recently discharge by surgical service for colonic stricture secondary to his Crohn's disease, he underwent subtotal colectomy and ileostomy formation. patient presents this time because his ostomy stitches opened up over the weekend spontaneously. And on presentation patient was found to have elevated cardiac enzymes However patient denies any symptoms he denies chest pain or dyspnea or abdominal pain, no palpitation or dizziness or coughing or headache or weakness or change in urine or bowel habits. He denies fever. He walks a little bit which is his baseline as he states he denies smoking, alcohol or ILLICIT drugs On examination there is some mild erythema and the stitches side and of the lower side of the surgical wound there is a superficial ulcer about 1 cm with some purulent discharge at the base close to the ostomy back. Ostomy bag has semisolid yellow-brown stool she is tachycardic at 122,postop vitals are stable.she has leukocytosis of 18.9 K, no some when she was discharge was 14-16 K.troponin is elevated 2.9, 4.4 and 5.6. BMP and liver enzymes are not elevated. EKG shows sinus tachycardia at 138 with a slight lateral ST depression and change, chest x-ray:no heart failure in the emergency roompatient was started on heparin drip and aspirin 325 mg daily and normal saline at 80 mL per hour 07/09/2020 Patient lying comfortable in bed. No chest pain or dyspnea. Cardiac cath showing 95% stenosis of the LAD, for stent placement and cardiology are following. Currently he is on dual antiplatelet therapy with aspirin and Plavix. His wound dressing is in place, surgery team following the patient. Once culture is pending and him remains on Unasyn WBC is 19.1 K, hemoglobin is 10.7, platelets 356. BMP is unremarkable. 07/10/2020 Patient with no chest pain or other cardiac symptoms, cardiology on the case and recommended to continue with the same treatment with aspirin and Plavix and they cleared the patient for discharge however is still complaining of from infection at the surgical wound of the abdomen. Once culture is growing gram-negative bacilli 2, final results of cultures pending. Consult infectious disease for further recommendation. Currently patient continue on Unasyn, WBCs is coming down to 14 K. Surgery team on the case and they are managing estomy function Patient transferred [facility] medical floor 07/11/2020 Patient lying in bed comfortable with no chest pain or dyspnea, wound at the surgical site is stable, dressing is in place. Once culture is growing Klebsiella and E. coli both are sensitive to antibiotic. CT of the abdomen and pelvis showed 2 cystic fluid collection in the abdomen possible postsurgical abscesses. Surgery team on the case already. WBCs trending down slowly to 12 K today. Patient remains on antibiotics in the form of Zosyn 07/12/2020 Patient with no chest pain or however patient was noticed to be dyspneic and on examination he has wheezing. Also he has low-grade temperature of 99.9 His WBCs 13.3 K. Repeat chest x-ray today showing patchy infiltrate in the retrocardiac and left lung base suspicious for pneumonia. We will start him on duo nebs Patient is a long time ago exit smoker. We will add small dose of steroids. We will do aspiration precaution keep head of bed elevated at 30. He remains on Zosyn. Today I discussed the case with surgery team Dr. Phan, fluids collection seen in the CAT scan of the abdomen near the surgical wound no need to be drained 07/13/2020 Patient with no much distress and is fully awake and oriented. His breathing is better today. He was on room air most of the time for the last 2 days. Wheezing is better today, and his sugars elevated, metformin is admitted temporarily and may stops upon discharge. There was suspicion of aspiration some swallowing evaluation was done and patient posted with no penetration. We will change Solu-Medrol to prednisone tomorrow. Continue with prednisone taper upon discharge Antibiotic was changed to Zosyn. I discussed the fluid collection with Dr. Phan and she believes these are fluid collection that does not need to be drained as they don't behave clinically as an abscess. Infectious disease on the case. WBCs trending down to 11 K. Patient is afebrile Patient keep improving possible discharge in 24-48 hours to [facility] for subacute rehab Objective - Vital Signs Vital signs: Vital Signs Temp 97.7 F 07/13/20 14:51 Pulse 97 07/13/20 14:51 Resp 18 07/13/20 14:51 BP 98/64 07/13/20 14:51 Pulse Ox 91 L 07/13/20 14:51 Intake & Output 07/12/20 07/13/20 07/13/20 18:59 06:59 18:59 Intake Total 200 Output Total 150 Balance 200 -150 Weight 91.5 kg Intake: Intake, IV Titration 200 Amount Piperacillin-Tazobactam 3 200 .375 gm In Sodium Chloride 0.9% 100 ml @ 25 mls/hr IVPB Q8HR [facility] Rx# :[id number] Output: Urine 150 Other: Voiding Method Urinal Urinal # Voids 1 # Bowel Movements 150 - Exam GENERAL: The patient is alert and oriented x3, not in any acute distress. Well developed, well nourished. HEENT: Pupils are round and equally reacting to light. EOMI. No scleral icterus. No conjunctival pallor. Normocephalic, atraumatic. No pharyngeal erythema. No thyromegaly. CARDIOVASCULAR: S1 and S2 present. No murmurs, rubs, or gallops. PULMONARY: Chest is clear to auscultation, no wheezing or crackles. -ABDOMEN: Soft, nontender, nondistended, normoactive bowel sounds. No palpable organomegaly. On examination there is some mild erythema and the stitches side and of the lower side of the surgical wound there is a superficial ulcer about 1 cm with some purulent discharge at the base close to the ostomy back. Ostomy bag has semisolid yellow-brown stool MUSCULOSKELETAL: No joint swelling or deformity. EXTREMITIES: No cyanosis, clubbing, or pedal edema. NEUROLOGICAL: Gross neurological examination did not reveal any focal deficits. SKIN: No rashes. No petechiae - Labs CBC & Chem 7: 07/13/20 06:04 07/13/20 06:04 Labs: Abnormal Lab Results - Last 24 Hours (Table) 07/12/20 07/12/20 07/13/20 Range/Units 16:54 20:21 06:04 WBC 11.4 H (3.8-10.6) k/uL RBC 3.50 L (4.30-5.90) m/uL Hgb 10.3 L (13.0-17.5) gm/dL Hct 35.0 L (39.0-53.0) % MCHC 29.4 L (31.0-37.0) g/dL Neutrophils # 10.4 H (1.3-7.7) k/uL Lymphocytes # 0.6 L (1.0-4.8) k/uL Carbon Dioxide (21.6-31.8) mmol/L Anion Gap (4.00-12.00) mmol/L Glucose (70-110) mg/dL POC Glucose (mg/dL) 168 H 217 H (75-99) mg/dL Calcium (8.7-10.3) mg/dL 07/13/20 07/13/20 07/13/20 Range/Units 06:04 06:50 11:26 WBC (3.8-10.6) k/uL RBC (4.30-5.90) m/uL Hgb (13.0-17.5) gm/dL Hct (39.0-53.0) % MCHC (31.0-37.0) g/dL Neutrophils # (1.3-7.7) k/uL Lymphocytes # (1.0-4.8) k/uL Carbon Dioxide 19.7 L (21.6-31.8) mmol/L Anion Gap 16.30 H (4.00-12.00) mmol/L Glucose 294 H (70-110) mg/dL POC Glucose (mg/dL) 312 H 398 H (75-99) mg/dL Calcium 8.5 L (8.7-10.3) mg/dL 07/13/20 Range/Units 13:19 WBC (3.8-10.6) k/uL RBC (4.30-5.90) m/uL Hgb (13.0-17.5) gm/dL Hct (39.0-53.0) % MCHC (31.0-37.0) g/dL Neutrophils # (1.3-7.7) k/uL Lymphocytes # (1.0-4.8) k/uL Carbon Dioxide (21.6-31.8) mmol/L Anion Gap (4.00-12.00) mmol/L Glucose (70-110) mg/dL POC Glucose (mg/dL) 395 H (75-99) mg/dL Calcium (8.7-10.3) mg/dL Microbiology - Last 24 Hours (Table) 07/07/20 18:40 Blood Culture - Preliminary Blood No Growth after 120 hours Assessment and Plan Assessment: Retroperitoneal and left lower lobe pneumonia, most likely aspiration pneumonia elevated troponin, suspicious for non-STEMI, status post cardiac cath surgical abdominal wound infection. Possible elements of acute COPD exacerbation recent history of Colonic stricture secondary to Crohn's disease status post subtotal colectomy and ileostomy formation Hyperlipidemia Hypertension Transient hypotensive, improved with fluids and steroids History of CVA/TIA with some residual blood test Hearing difficulty Chronic back pain Leukocytosis secondary to steroid effect and reactive from surgery Plan: this is a pleasant 69 years old male who presents with surgical wound infection and high troponin.Continue with Plavix and aspirin. Follow-up recommendation by surgery and Cardiology consult. Continue with Zosyn . Follow-up surgery recommendation. Continue with respiration precaution. Follow-up evaluation Labs and medication were reviewed.. Continue same treatment. Continue with symptomatic treatment. Resume home medication. Monitor lytes and vitals. DVT and GI prophylaxis. Further recommendationsas per clinical course of the patient DVT prophylaxis:sc heparin GI Prophylaxis: Pepcid
[2020-07-13] MEDS: ATORVASTATIN 80 MG TAB PO SCH (22:41)
[2020-07-14 00:49] LABS: Glucose,Whole Blood 320 mg/dL (75-99)
[2020-07-14] MEDS: PIPERACILLIN-TAZOBACTAM 3.375 GM in SODIUM CHLORIDE 0.9% 100 ML IVPB SCH ×4 (00:57→22:56)
--- NOTE | 2020-07-14 01:16 | PN ---
PROGRESS NOTE DATE OF SERVICE: 07/13/2020 REASON FOR FOLLOWUP: Abdominal wound infection. INTERVAL HISTORY: The patient is currently afebrile. The patient is feeling better. Breathing comfortably. The patient denies having any chest pain. No shortness of breath or cough. Abdominal pain is currently controlled. No nausea, vomiting and no diarrhea. PHYSICAL EXAMINATION: Blood pressure 105/71 with a pulse of 90, temperature is 97.7. He is 93% on room air. General description is an elderly male lying in bed in no distress. RESPIRATORY SYSTEM: Unlabored breathing, decreased breath sounds at the bases. No wheeze. HEART: S1, S2. Regular rate and rhythm. ABDOMEN: Soft, no tenderness. EXTREMITIES; No edema of the feet. LABS: Hemoglobin is 10.3, white count 11.4, creatinine is 0.9. DIAGNOSTIC IMPRESSION AND PLAN: Patient with abdominal wound infection with wound dehiscence. Culture has been positive for Klebsiella and Escherichia coli. The patient is currently covered with Zosyn. Will transition to oral Cipro and Flagyl on discharge. Case was discussed with the surgeon who recommended open drainage. Continue with supportive care. MMODL / IJN: [id number] /
[2020-07-14 06:36] LABS: Basophils % (A) 0 %; Eosinophils % (A) 0 %; HCT 32.7 % (39.0-53.0); Hypochromasia Moderate; Lymphocytes # (A) 0.9 k/uL (1.0-4.8); Lymphocytes % (A) 5 %; MCH 29.5 pg (25.0-35.0); MCHC 30.7 g/dL (31.0-37.0); Mean Platelet Volume 7.2; Monocytes # (A) 0.6 k/uL (0-1.0); Monocytes % (A) 3 %; Neutrophils # (A) 17.5 k/uL (1.3-7.7); Neutrophils % (A) 92 %; Platelet Count 373 k/uL (150-450); Poikilocytosis Slight; RDW 14.6 % (11.5-15.5); WBC 19.1 k/uL (3.8-10.6)
[2020-07-14 07:18] LABS: Glucose,Whole Blood 361 mg/dL (75-99)
[2020-07-14] MEDS: metFORMIN 500 MG TAB PO SCH ×2 (07:22→17:15)
[2020-07-14] MEDS: carvediloL 3.125 MG TAB PO SCH ×2 (07:22→17:13)
[2020-07-14] MEDS: INSULIN ASPART (NovoLOG) 100 UNIT/ML VIAL SQ SCH ×4 (07:23→20:48)
[2020-07-14] MEDS: IPRATROPIUM-ALBUTEROL 3 ML NEB INHALATION SCH ×3 (07:52→20:46)
[2020-07-14] MEDS: SYMBICORT 160-4.5 MCG INHALER INHALATION PRN (07:53)
--- NOTE | 2020-07-14 09:10 | XR ---
EXAMINATION TYPE: XR chest 1V DATE OF EXAM: 07/14/2020 CLINICAL HISTORY: Shortness of breath TECHNIQUE: Portable upright view of the chest COMPARISON: 07/12/2020 FINDINGS: Low lung volumes. Elevation of the right hemidiaphragm redemonstrated. Improved aeration a t the left lung base. No pneumothorax. IMPRESSION: 1. Low lung volumes. 2. Improved aeration of the left lung base versus 07/12/2020.
[2020-07-14] MEDS: ASPIRIN 81 MG PO SCH (10:08)
[2020-07-14] MEDS: CLOPIDOGREL 75 MG TAB PO SCH (10:08)
[2020-07-14] MEDS: FINASTERIDE 5 MG TAB PO SCH (10:09)
[2020-07-14] MEDS: HEPARIN SODIUM,PORCINE 5,000 UNIT/ML 1 ML VIAL SQ SCH ×2 (10:09→20:48)
[2020-07-14] MEDS: MONTELUKAST 10 MG TAB PO SCH (10:09)
[2020-07-14] MEDS: DIPHENOX-ATROP 2.5-0.025 MG 1 EACH TAB PO SCH ×3 (10:09→20:48)
[2020-07-14] MEDS: MULTIVITAMINS, THERA 1 EACH TAB PO SCH (10:09)
[2020-07-14] MEDS: predniSONE 20 MG TAB PO SCH (10:09)
[2020-07-14] MEDS: lisinopriL 5 MG TAB PO SCH (10:09)
[2020-07-14] MEDS: CODEINE 30 MG TAB PO SCH ×2 (10:23→21:18)
--- NOTE | 2020-07-14 12:17 | CDI ---
Documentation Clarification Form Date: 07/14/2020 11:55:17 AM From: Consuelo FaustinJolleyDEMI fitzgerald, CCDS Admit Date: 07/07/2020 09:00:00 PM Patient Name: Newton Betancourt Visit Number: [id number] Discharge Date: ATTENTION: The Clinical Documentation Specialists (CDI) and [facility] Coding Staff appreciate your assistance in clarifying documentation. Please respond to the clarification below the line at the bottom and electronically sign. The CDI & [facility] Coding staff will review the response and follow-up if needed. Please note: Queries are made part of the Legal Health Record. If you have any questions, please contact the author of this message via ITS. Dr. Xavier Francois. Sheet: Per the 07/13 Attending Progress Note: "We will do aspiration precaution, HOB elevated. There was suspicion of aspiration, swallowing evaluation was done and patient posted with no penetration. We will change Solu-Medrol to prednisone tomorrow. Continue with prednisone taper upon discharge. Antibiotic was changed to Zosyn." "Retroperitoneal and left lower lobe pneumonia, most likely aspiration pneumonia." History/Risk Factors: COPD, former smoker, Asthma, Asbestos Exposure, DM II, Hypertension, Hyperlipidemia, CVA/TIA, Chronic back pain. Clinical Indicators: Patient presented to the ED with complaints of his abdominal wound status post a recent colostomy opening up. Admitted with abdominal cellulitis, abdominal wound dehiscence & NSTEMI. Vital signs: T 98.1, P 139^, R 18 - 24, BP 122/79 - 140/112^, PO 95 RA - 94 RA - 96 2Lnc LAB: WBC 18.9^, Pl Ct 515^, Neut 15.4^, glucose 332^, Mag 1.5*, Alk Phos 143^, Troponin 2.910^^, 4.480^^, 5.680^^. 07/07 Blood Culture: neg. 07/08 Abdominal Wound Culture: Klebsiella pneumonia, E Coli Sputum Culture: not done. RAD: 07/07 CXR: Chronic elevation of right diaphragm unchanged from prior exam. 07/11 CT Abdomen/Pelvis: Bilateral lower lobe consolidation & atelectasis, new. 07/12 CXR: Patchy left basilar & retrocardiac atelectasis vs infiltrate. Barium Swallow Test: No report of test. Treatment: 07/07: IV fluid bolus 1,000 mls @ 999 mls/hr, IV Heparin drip, IV MagSulf. 07/08: INH Symbicort, IV Ampicillin. 07/10: IV Zosyn, IV SoluMedrol, INH Albuterol, IV Insulin. In order to capture the severity of condition, please clarify if the following: Aspiration Pneumonia ruled out Aspiration Pneumonia ruled in, please specify: o Due to solids or liquids o Due to other cause, please specify: Pneumonia ruled out: Pneumonia, please specify type if known: o Bacterial Pneumonia, specify causal organism (if known) o Other bacteria (please specify) o Viral Pneumonia, specify casual organism (if known) o Healthcare Acquired Pneumonia/Pneumonia, unspecified o Other, please specify Unable to determine If Pneumonia is present, please clarify if Present on Admission: Yes or No (Last Revision: December 2017) Aspiration Pneumonia ruled out MTDD
[2020-07-14 12:31] LABS: Glucose,Whole Blood 332 mg/dL (75-99)
--- NOTE | 2020-07-14 13:00 | PN ---
PROGRESS NOTE DATE OF SERVICE: 07/14/2020 REASON FOR FOLLOWUP: Abdominal wound dehiscence and a question of abdominal abscess. INTERVAL HISTORY: The patient is currently afebrile. Patient overall feeling better, breathing comfortably on room air. Denies having any chest pain. No cough or any worsening drainage from the wound, no diarrhea. PHYSICAL EXAMINATION: Blood pressure 113/77, pulse 69, temperature 97.5, he is 94% on room air. General description is an elderly male, lying in bed in no distress. RESPIRATORY SYSTEM: Unlabored breathing, decreased breath sounds, no wheeze. HEART: S1, S2. Regular rate and rhythm. ABDOMEN: Soft. No tenderness. LABS: Hemoglobin is 10.3, white count 19,000 today. DIAGNOSTIC IMPRESSION AND PLAN: Patient with abdominal wound dehiscence. Culture has been positive for Klebsiella and E coli. Did have improved white count yesterday; however, did not have significant worsening, could be related to the Solu-Medrol the patient has received yesterday and will monitor closely and the white count is trending downward. Will be able to finish therapy with oral antibiotics, continue supportive care and local wound care is ordered to continue supportive care. MMODL / IJN: [id number] /
[2020-07-14] MEDS ORDERED: metFORMIN 500 MG TAB PO STA (13:23)
--- NOTE | 2020-07-14 13:25 | P.PN ---
Subjective this is a pleasant 69 years old male with past medical history of asthma, CVA/TIA, diabetes mellitus, hearing disorder, hyperlipidemia, hypertension, chronic back pain, Crohn's disease and he is steroid dependent. He was recently discharge by surgical service for colonic stricture secondary to his Crohn's disease, he underwent subtotal colectomy and ileostomy formation. patient presents this time because his ostomy stitches opened up over the weekend spontaneously. And on presentation patient was found to have elevated cardiac enzymes However patient denies any symptoms he denies chest pain or dyspnea or abdominal pain, no palpitation or dizziness or coughing or headache or weakness or change in urine or bowel habits. He denies fever. He walks a little bit which is his baseline as he states he denies smoking, alcohol or ILLICIT drugs On examination there is some mild erythema and the stitches side and of the lower side of the surgical wound there is a superficial ulcer about 1 cm with some purulent discharge at the base close to the ostomy back. Ostomy bag has semisolid yellow-brown stool she is tachycardic at 122,postop vitals are stable.she has leukocytosis of 18.9 K, no some when she was discharge was 14-16 K.troponin is elevated 2.9, 4.4 and 5.6. BMP and liver enzymes are not elevated. EKG shows sinus tachycardia at 138 with a slight lateral ST depression and change, chest x-ray:no heart failure in the emergency roompatient was started on heparin drip and aspirin 325 mg daily and normal saline at 80 mL per hour 07/09/2020 Patient lying comfortable in bed. No chest pain or dyspnea. Cardiac cath showing 95% stenosis of the LAD, for stent placement and cardiology are following. Currently he is on dual antiplatelet therapy with aspirin and Plavix. His wound dressing is in place, surgery team following the patient. Once culture is pending and him remains on Unasyn WBC is 19.1 K, hemoglobin is 10.7, platelets 356. BMP is unremarkable. 07/10/2020 Patient with no chest pain or other cardiac symptoms, cardiology on the case and recommended to continue with the same treatment with aspirin and Plavix and they cleared the patient for discharge however is still complaining of from infection at the surgical wound of the abdomen. Once culture is growing gram-negative bacilli 2, final results of cultures pending. Consult infectious disease for further recommendation. Currently patient continue on Unasyn, WBCs is coming down to 14 K. Surgery team on the case and they are managing estomy function Patient transferred from [facility] to general medical floor 07/11/2020 Patient lying in bed comfortable with no chest pain or dyspnea, wound at the surgical site is stable, dressing is in place. Once culture is growing Klebsiella and E. coli both are sensitive to antibiotic. CT of the abdomen and pelvis showed 2 cystic fluid collection in the abdomen possible postsurgical abscesses. Surgery team on the case already. WBCs trending down slowly to 12 K today. Patient remains on antibiotics in the form of Zosyn 07/12/2020 Patient with no chest pain or however patient was noticed to be dyspneic and on examination he has wheezing. Also he has low-grade temperature of 99.9 His WBCs 13.3 K. Repeat chest x-ray today showing patchy infiltrate in the retrocardiac and left lung base suspicious for pneumonia. We will start him on duo nebs Patient is a long time ago exit smoker. We will add small dose of steroids. We will do aspiration precaution keep head of bed elevated at 30. He remains on Zosyn. Today I discussed the case with surgery team Dr. Phan, fluids collection seen in the CAT scan of the abdomen near the surgical wound no need to be drained 07/13/2020 Patient with no much distress and is fully awake and oriented. His breathing is better today. He was on room air most of the time for the last 2 days. Wheezing is better today, and his sugars elevated, metformin is admitted temporarily and may stops upon discharge. There was suspicion of aspiration some swallowing evaluation was done and patient posted with no penetration. We will change Solu-Medrol to prednisone tomorrow. Continue with prednisone taper upon discharge Antibiotic was changed to Zosyn. I discussed the fluid collection with Dr. Phan and she believes these are fluid collection that does not need to be drained as they don't behave clinically as an abscess. Infectious disease on the case. WBCs trending down to 11 K. Patient is afebrile Patient keep improving possible discharge in 24-48 hours to ECF for subacute rehab 07/14/2020 patient feels tired today, he still have some shortness of breath although it's improving. Wheezing is improving. He is on room air His WBC is 19.1 but also he is on steroids. Sugars uncontrolled with 332 this afternoon. Metformin is increased to 1000 twice a day. He switched to oral prednisone at 40 mg daily. He remains on IV antibiotics with Zosyn. Surgical team has no plan to do I&D for his fluid collection in the abdomen patient got accepted at [facility] in [place], no [facility] locally deficits the patient, because of that patient wants to go home with home care instead of going to rehab. Risks, benefits and alternatives are explained for him Objective - Vital Signs Vital signs: Vital Signs Temp 97.5 F L 07/14/20 00:50 Pulse 86 07/14/20 13:10 Resp 16 07/14/20 13:10 BP 113/77 07/14/20 00:50 Pulse Ox 94 L 07/14/20 00:50 Intake & Output 07/13/20 07/14/20 07/14/20 18:59 06:59 18:59 Intake Total 35.55 400 Output Total 150 150 Balance -114.45 250 Intake: Intake, IV Titration 35.55 100 Amount Insulin Regular 100 unit 35.55 In Sodium Chloride 0.9% 100 ml @ Titrate IV .Q0M JOHN Rx#:[id number] Piperacillin-Tazobactam 3 100 .375 gm In Sodium Chloride 0.9% 100 ml @ 25 mls/hr IVPB Q8HR JOHN Rx# :[id number] Oral 300 Output: Urine 150 Stool 150 Other: Voiding Method Urinal # Voids 1 # Bowel Movements 150 - Exam GENERAL: The patient is alert and oriented x3, not in any acute distress. Well developed, well nourished. HEENT: Pupils are round and equally reacting to light. EOMI. No scleral icterus. No conjunctival pallor. Normocephalic, atraumatic. No pharyngeal erythema. No thyromegaly. CARDIOVASCULAR: S1 and S2 present. No murmurs, rubs, or gallops. PULMONARY: Chest is clear to auscultation, no wheezing or crackles. -ABDOMEN: Soft, nontender, nondistended, normoactive bowel sounds. No palpable organomegaly. On examination there is some mild erythema and the stitches side and of the lower side of the surgical wound there is a superficial ulcer about 1 cm with some purulent discharge at the base close to the ostomy back. Ostomy bag has semisolid yellow-brown stool MUSCULOSKELETAL: No joint swelling or deformity. EXTREMITIES: No cyanosis, clubbing, or pedal edema. NEUROLOGICAL: Gross neurological examination did not reveal any focal deficits. SKIN: No rashes. No petechiae - Labs CBC & Chem 7: 07/14/20 05:58 07/13/20 06:04 Labs: Abnormal Lab Results - Last 24 Hours (Table) 07/13/20 07/13/20 07/13/20 Range/Units 13:19 16:42 18:05 WBC (3.8-10.6) k/uL RBC (4.30-5.90) m/uL Hgb (13.0-17.5) gm/dL Hct (39.0-53.0) % MCHC (31.0-37.0) g/dL Neutrophils # (1.3-7.7) k/uL Lymphocytes # (1.0-4.8) k/uL POC Glucose (mg/dL) 395 H 483 H 439 H (75-99) mg/dL 07/13/20 07/13/20 07/13/20 Range/Units 18:38 19:08 19:34 WBC (3.8-10.6) k/uL RBC (4.30-5.90) m/uL Hgb (13.0-17.5) gm/dL Hct (39.0-53.0) % MCHC (31.0-37.0) g/dL Neutrophils # (1.3-7.7) k/uL Lymphocytes # (1.0-4.8) k/uL POC Glucose (mg/dL) 410 H 367 H 289 H (75-99) mg/dL 07/13/20 07/13/20 07/14/20 Range/Units 20:06 22:03 00:48 WBC (3.8-10.6) k/uL RBC (4.30-5.90) m/uL Hgb (13.0-17.5) gm/dL Hct (39.0-53.0) % MCHC (31.0-37.0) g/dL Neutrophils # (1.3-7.7) k/uL Lymphocytes # (1.0-4.8) k/uL POC Glucose (mg/dL) 229 H 166 H 320 H (75-99) mg/dL 07/14/20 07/14/20 07/14/20 Range/Units 05:58 07:16 12:30 WBC 19.1 H (3.8-10.6) k/uL RBC 3.40 L (4.30-5.90) m/uL Hgb 10.0 L (13.0-17.5) gm/dL Hct 32.7 L (39.0-53.0) % MCHC 30.7 L (31.0-37.0) g/dL Neutrophils # 17.5 H (1.3-7.7) k/uL Lymphocytes # 0.9 L (1.0-4.8) k/uL POC Glucose (mg/dL) 361 H 332 H (75-99) mg/dL Microbiology - Last 24 Hours (Table) 07/07/20 18:40 Blood Culture - Final Blood No Growth after 144 hours Assessment and Plan Assessment: Retroperitoneal and left lower lobe pneumonia, rule out pneumonia elevated troponin, suspicious for non-STEMI, status post cardiac cath of the LAD surgical abdominal wound infection. Possible elements of acute COPD exacerbation recent history of Colonic stricture secondary to Crohn's disease status post subtotal colectomy and ileostomy formation Hyperlipidemia Hypertension Transient hypotensive, improved with fluids and steroids History of CVA/TIA with some residual blood test Hearing difficulty Chronic back pain Leukocytosis secondary to steroid effect and reactive from surgery Plan: this is a pleasant 69 years old male who presents with surgical wound infection and high troponin.Continue with Plavix and aspirin. Follow-up recommendation by surgery and Cardiology consult. Continue with Zosyn . Follow-up surgery recommendation. Continue with respiration precaution. Follow-up evaluation Labs and medication were reviewed.. Continue same treatment. Continue with symptomatic treatment. Resume home medication. Monitor lytes and vitals. DVT and GI prophylaxis. Further recommendationsas per clinical course of the patient DVT prophylaxis:sc heparin GI Prophylaxis: Pepcid Possible discharge in 24 hours
[2020-07-14 16:24] LABS: Glucose,Whole Blood 424 mg/dL (75-99)
[2020-07-14 20:45] LABS: Glucose,Whole Blood 337 mg/dL (75-99)
[2020-07-14] MEDS: ATORVASTATIN 80 MG TAB PO SCH (20:48)
[2020-07-15 06:33] LABS: Basophils % (A) 0 %; Eosinophils % (A) 0 %; HGB 10.3 gm/dL (13.0-17.5); Hypochromasia Marked; Lymphocytes # (A) 1.3 k/uL (1.0-4.8); Lymphocytes % (A) 7 %; MCH 30.1 pg (25.0-35.0); MCHC 31.3 g/dL (31.0-37.0); MCV 96.1 fL (80.0-100.0); Mean Platelet Volume 7.1; Monocytes # (A) 0.7 k/uL (0-1.0); Monocytes % (A) 4 %; Neutrophils # (A) 15.1 k/uL (1.3-7.7); Neutrophils % (A) 87 %; Platelet Count 376 k/uL (150-450); Poikilocytosis Slight; RBC 3.43 m/uL (4.30-5.90); RDW 14.4 % (11.5-15.5); WBC 17.4 k/uL (3.8-10.6)
[2020-07-15 06:57] LABS: Glucose,Whole Blood 291 mg/dL (75-99)
[2020-07-15] MEDS: metFORMIN 500 MG TAB PO SCH ×2 (07:12→17:06)
[2020-07-15] MEDS: carvediloL 3.125 MG TAB PO SCH ×2 (07:12→17:08)
[2020-07-15] MEDS: INSULIN ASPART (NovoLOG) 100 UNIT/ML VIAL SQ SCH ×3 (07:12→17:05)
[2020-07-15] MEDS: PIPERACILLIN-TAZOBACTAM 3.375 GM in SODIUM CHLORIDE 0.9% 100 ML IVPB SCH ×3 (07:13→23:23)
[2020-07-15] MEDS: IPRATROPIUM-ALBUTEROL 3 ML NEB INHALATION SCH ×3 (07:15→19:26)
[2020-07-15] MEDS: SYMBICORT 160-4.5 MCG INHALER INHALATION PRN ×2 (07:15→19:28)
[2020-07-15] MEDS: ASPIRIN 81 MG PO SCH (08:57)
[2020-07-15] MEDS: CODEINE 30 MG TAB PO SCH ×2 (08:58→21:03)
[2020-07-15] MEDS: CLOPIDOGREL 75 MG TAB PO SCH (08:58)
[2020-07-15] MEDS: lisinopriL 5 MG TAB PO SCH (08:59)
[2020-07-15] MEDS: MULTIVITAMINS, THERA 1 EACH TAB PO SCH (08:59)
[2020-07-15] MEDS: DIPHENOX-ATROP 2.5-0.025 MG 1 EACH TAB PO SCH ×3 (08:59→21:03)
[2020-07-15] MEDS: HEPARIN SODIUM,PORCINE 5,000 UNIT/ML 1 ML VIAL SQ SCH ×2 (08:59→21:03)
[2020-07-15] MEDS: MONTELUKAST 10 MG TAB PO SCH (08:59)
[2020-07-15] MEDS: predniSONE 20 MG TAB PO SCH (08:59)
[2020-07-15] MEDS: FINASTERIDE 5 MG TAB PO SCH (08:59)
[2020-07-15 11:22] LABS: Glucose,Whole Blood 291 mg/dL (75-99)
[2020-07-15 17:02] LABS: Glucose,Whole Blood 427 mg/dL (75-99)
--- NOTE | 2020-07-15 19:32 | P.PN ---
Subjective this is a pleasant 69 years old male with past medical history of asthma, CVA/TIA, diabetes mellitus, hearing disorder, hyperlipidemia, hypertension, chronic back pain, Crohn's disease and he is steroid dependent. He was recently discharge by surgical service for colonic stricture secondary to his Crohn's disease, he underwent subtotal colectomy and ileostomy formation. patient presents this time because his ostomy stitches opened up over the weekend spontaneously. And on presentation patient was found to have elevated cardiac enzymes However patient denies any symptoms he denies chest pain or dyspnea or abdominal pain, no palpitation or dizziness or coughing or headache or weakness or change in urine or bowel habits. He denies fever. He walks a little bit which is his baseline as he states he denies smoking, alcohol or ILLICIT drugs On examination there is some mild erythema and the stitches side and of the lower side of the surgical wound there is a superficial ulcer about 1 cm with some purulent discharge at the base close to the ostomy back. Ostomy bag has semisolid yellow-brown stool she is tachycardic at 122,postop vitals are stable.she has leukocytosis of 18.9 K, no some when she was discharge was 14-16 K.troponin is elevated 2.9, 4.4 and 5.6. BMP and liver enzymes are not elevated. EKG shows sinus tachycardia at 138 with a slight lateral ST depression and change, chest x-ray:no heart failure in the emergency roompatient was started on heparin drip and aspirin 325 mg daily and normal saline at 80 mL per hour 07/09/2020 Patient lying comfortable in bed. No chest pain or dyspnea. Cardiac cath showing 95% stenosis of the LAD, for stent placement and cardiology are following. Currently he is on dual antiplatelet therapy with aspirin and Plavix. His wound dressing is in place, surgery team following the patient. Once culture is pending and him remains on Unasyn WBC is 19.1 K, hemoglobin is 10.7, platelets 356. BMP is unremarkable. 07/10/2020 Patient with no chest pain or other cardiac symptoms, cardiology on the case and recommended to continue with the same treatment with aspirin and Plavix and they cleared the patient for discharge however is still complaining of from infection at the surgical wound of the abdomen. Once culture is growing gram-negative bacilli 2, final results of cultures pending. Consult infectious disease for further recommendation. Currently patient continue on Unasyn, WBCs is coming down to 14 K. Surgery team on the case and they are managing estomy function Patient transferred from [facility] to general medical floor 07/11/2020 Patient lying in bed comfortable with no chest pain or dyspnea, wound at the surgical site is stable, dressing is in place. Once culture is growing Klebsiella and E. coli both are sensitive to antibiotic. CT of the abdomen and pelvis showed 2 cystic fluid collection in the abdomen possible postsurgical abscesses. Surgery team on the case already. WBCs trending down slowly to 12 K today. Patient remains on antibiotics in the form of Zosyn 07/12/2020 Patient with no chest pain or however patient was noticed to be dyspneic and on examination he has wheezing. Also he has low-grade temperature of 99.9 His WBCs 13.3 K. Repeat chest x-ray today showing patchy infiltrate in the retrocardiac and left lung base suspicious for pneumonia. We will start him on duo nebs Patient is a long time ago exit smoker. We will add small dose of steroids. We will do aspiration precaution keep head of bed elevated at 30. He remains on Zosyn. Today I discussed the case with surgery team Dr. Phan, fluids collection seen in the CAT scan of the abdomen near the surgical wound no need to be drained 07/13/2020 Patient with no much distress and is fully awake and oriented. His breathing is better today. He was on room air most of the time for the last 2 days. Wheezing is better today, and his sugars elevated, metformin is admitted temporarily and may stops upon discharge. There was suspicion of aspiration some swallowing evaluation was done and patient posted with no penetration. We will change Solu-Medrol to prednisone tomorrow. Continue with prednisone taper upon discharge Antibiotic was changed to Zosyn. I discussed the fluid collection with Dr. Phan and she believes these are fluid collection that does not need to be drained as they don't behave clinically as an abscess. Infectious disease on the case. WBCs trending down to 11 K. Patient is afebrile Patient keep improving possible discharge in 24-48 hours to ECF for subacute rehab 07/14/2020 patient feels tired today, he still have some shortness of breath although it's improving. Wheezing is improving. He is on room air His WBC is 19.1 but also he is on steroids. Sugars uncontrolled with 332 this afternoon. Metformin is increased to 1000 twice a day. He switched to oral prednisone at 40 mg daily. He remains on IV antibiotics with Zosyn. Surgical team has no plan to do I&D for his fluid collection in the abdomen [facility] [place] deficits the patient, because of that patient wants to go home with home care instead of going to rehab. Risks, benefits and alternatives are explained for him 07/15/20 pt was giong to be discharged today however last minute he changed his mind and he agrees to go to [facility] for rehab because he felt he could not deal with his colostomy care social work nurse is consulted and discharged is postponed for possible tomorrow Objective - Vital Signs Vital signs: Vital Signs Temp 97.3 F L 07/15/20 07:00 Pulse 92 07/15/20 12:54 Resp 18 07/15/20 00:30 BP 116/76 07/15/20 07:00 Pulse Ox 93 L 07/15/20 07:00 Intake & Output 07/14/20 07/15/20 07/15/20 18:59 06:59 18:59 Output Total 50 250 Balance -50 -250 Weight 91.5 kg Output: Urine 50 Stool 250 Other: # Voids 3 - Exam GENERAL: The patient is alert and oriented x3, not in any acute distress. Well developed, well nourished. HEENT: Pupils are round and equally reacting to light. EOMI. No scleral icterus. No conjunctival pallor. Normocephalic, atraumatic. No pharyngeal erythema. No thyromegaly. CARDIOVASCULAR: S1 and S2 present. No murmurs, rubs, or gallops. PULMONARY: Chest is clear to auscultation, no wheezing or crackles. -ABDOMEN: Soft, nontender, nondistended, normoactive bowel sounds. No palpable organomegaly. On examination there is some mild erythema and the stitches side and of the lower side of the surgical wound there is a superficial ulcer about 1 cm with some purulent discharge at the base close to the ostomy back. Ostomy bag has semisolid yellow-brown stool MUSCULOSKELETAL: No joint swelling or deformity. EXTREMITIES: No cyanosis, clubbing, or pedal edema. NEUROLOGICAL: Gross neurological examination did not reveal any focal deficits. SKIN: No rashes. No petechiae - Labs CBC & Chem 7: 07/15/20 06:13 07/13/20 06:04 Labs: Abnormal Lab Results - Last 24 Hours (Table) 07/14/20 07/14/20 07/15/20 Range/Units 16:22 20:43 06:13 WBC 17.4 H (3.8-10.6) k/uL RBC 3.43 L (4.30-5.90) m/uL Hgb 10.3 L (13.0-17.5) gm/dL Hct 33.0 L (39.0-53.0) % Neutrophils # 15.1 H (1.3-7.7) k/uL POC Glucose (mg/dL) 424 H 337 H (75-99) mg/dL 07/15/20 07/15/20 Range/Units 06:53 11:21 WBC (3.8-10.6) k/uL RBC (4.30-5.90) m/uL Hgb (13.0-17.5) gm/dL Hct (39.0-53.0) % Neutrophils # (1.3-7.7) k/uL POC Glucose (mg/dL) 291 H 291 H (75-99) mg/dL Assessment and Plan Assessment: Retroperitoneal and left lower lobe pneumonia, rule out pneumonia elevated troponin, suspicious for non-STEMI, status post cardiac cath of the LAD surgical abdominal wound infection. Possible elements of acute COPD exacerbation recent history of Colonic stricture secondary to Crohn's disease status post subtotal colectomy and ileostomy formation Hyperlipidemia Hypertension Transient hypotensive, improved with fluids and steroids History of CVA/TIA with some residual blood test Hearing difficulty Chronic back pain Leukocytosis secondary to steroid effect and reactive from surgery Plan: this is a pleasant 69 years old male who presents with surgical wound infection and high troponin.Continue with Plavix and aspirin. Follow-up recommendation by surgery and Cardiology consult. Continue with Zosyn . Follow-up surgery recommendation. Continue with respiration precaution. Follow-up evaluation Labs and medication were reviewed.. Continue same treatment. Continue with symptomatic treatment. Resume home medication. Monitor lytes and vitals. DVT and GI prophylaxis. Further recommendationsas per clinical course of the patient DVT prophylaxis:sc heparin GI Prophylaxis: Pepcid Possible discharge in 24 hours
[2020-07-15 20:02] LABS: Glucose,Whole Blood 488 mg/dL (75-99)
[2020-07-15 20:36] VITALS: RESP 17
[2020-07-15] MEDS ORDERED: INSULIN REGULAR 100 UNIT in SODIUM CHLORIDE 0.9% 100 ML IV SCH (21:00)
[2020-07-15] MEDS: ATORVASTATIN 80 MG TAB PO SCH (21:03)
[2020-07-15 21:37] LABS: Glucose,Whole Blood 471 mg/dL (75-99)
[2020-07-15 22:09] LABS: Glucose,Whole Blood 278 mg/dL (75-99)
[2020-07-15 22:49] LABS: Glucose,Whole Blood 179 mg/dL (75-99)
[2020-07-15 23:28] LABS: Glucose,Whole Blood 144 mg/dL (75-99)
[2020-07-16 01:29] LABS: Glucose,Whole Blood 116 mg/dL (75-99)
[2020-07-16 03:22] LABS: Glucose,Whole Blood 119 mg/dL (75-99)
[2020-07-16 05:31] LABS: Glucose,Whole Blood 127 mg/dL (75-99)
[2020-07-16 06:51] LABS: Glucose,Whole Blood 123 mg/dL (75-99)
[2020-07-16] MEDS: DIPHENOX-ATROP 2.5-0.025 MG 1 EACH TAB PO SCH (07:35)
[2020-07-16] MEDS: ASPIRIN 81 MG PO SCH (07:36)
[2020-07-16] MEDS: FINASTERIDE 5 MG TAB PO SCH (07:36)
[2020-07-16] MEDS: carvediloL 3.125 MG TAB PO SCH (07:36)
[2020-07-16] MEDS: metFORMIN 500 MG TAB PO SCH (07:36)
[2020-07-16] MEDS: lisinopriL 5 MG TAB PO SCH (07:36)
[2020-07-16] MEDS: CLOPIDOGREL 75 MG TAB PO SCH (07:36)
[2020-07-16] MEDS: MONTELUKAST 10 MG TAB PO SCH (07:36)
[2020-07-16] MEDS: MULTIVITAMINS, THERA 1 EACH TAB PO SCH (07:36)
[2020-07-16] MEDS: HEPARIN SODIUM,PORCINE 5,000 UNIT/ML 1 ML VIAL SQ SCH (07:37)
[2020-07-16] MEDS: PIPERACILLIN-TAZOBACTAM 3.375 GM in SODIUM CHLORIDE 0.9% 100 ML IVPB SCH (07:40)
[2020-07-16] MEDS: ACETAMINOPHEN TAB 325 MG TAB PO PRN ×2 (07:46→13:01)
[2020-07-16] MEDS: CODEINE 30 MG TAB PO SCH (07:46)
[2020-07-16 08:15] LABS: HCT 41.5 % (39.0-53.0); HGB 12.9 gm/dL (13.0-17.5); Hypochromasia Marked; MCH 29.8 pg (25.0-35.0); MCV 95.9 fL (80.0-100.0); Mean Platelet Volume 7.2; Platelet Count 525 k/uL (150-450); Poikilocytosis Slight; RBC 4.33 m/uL (4.30-5.90)
[2020-07-16 08:36] VITALS: BP 116/84; PULSE 95; TEMP 97.6
[2020-07-16] MEDS ORDERED: predniSONE 10 MG TAB PO SCH (09:00)
[2020-07-16 09:02] LABS: Metamyelocytes % 1 %; Myelocytes % 3 %; Neutrophils % (M) 77 %; Nucleated Red Blood Cells 3 /100 WBC (0-0); Total Cells Counted 200
[2020-07-16 09:03] LABS: Lymphocytes # (M) 3.74 k/uL (1.0-4.8); Metamyelocytes # (M) 0.25 k/uL (0); Monocytes # (M) 1.25 k/uL (0-1.0); Myelocytes # (M) 0.75 k/uL (0); Neutrophils # (M) 19.17 k/uL (1.3-7.7); Polychromasia Present; WBC 24.9 k/uL (3.8-10.6)
[2020-07-16] MEDS: IPRATROPIUM-ALBUTEROL 3 ML NEB INHALATION SCH ×2 (09:23→11:59)
[2020-07-16] MEDS: SYMBICORT 160-4.5 MCG INHALER INHALATION PRN (09:23)
[2020-07-16 09:49] LABS: Glucose,Whole Blood 134 mg/dL (75-99)
[2020-07-16] MEDS ORDERED: CALCIUM CARBONATE LIQUID 500 MG/5 ML CUP PO SCH (11:15)
[2020-07-16] MEDS ORDERED: PANTOPRAZOLE 40 MG/10 ML VIAL IVP SCH (11:15)
[2020-07-16 11:40] LABS: Glucose,Whole Blood 139 mg/dL (75-99)
[2020-07-16] MEDS ORDERED: INSULIN ASPART (NovoLOG) 100 UNIT/ML VIAL SQ SCH (12:30)
[2020-07-16] MEDS ORDERED: ONDANSETRON 4 MG/2 ML VIAL IVP STA (13:22)
[2020-07-16] MEDS ORDERED: ONDANSETRON 4 MG TAB PO PRN (13:23)
--- NOTE | 2020-07-16 13:30 | P.DS ---
Providers Date of admission: 07/07/20 21:00 Attending physician: Alexandru Busby Consults: 07/07/20 21:00 Consult Physician Urgent Consulting Provider: Esteban Archuleta Consult Reason/Comments: Non-ST elevation myocardial infarction Do you want consulting provider notified?: Already Contacted 07/08/20 07:49 Consult Physician Routine Consulting Provider: Maria L Phan Consult Reason/Comments: Post op colectomy w/ surgical incision dehiscence Do you want consulting provider notified?: Yes 07/10/20 12:21 Consult Physician Urgent Consulting Provider: Donte Roe Consult Reason/Comments: positive wound cultures Do you want consulting provider notified?: Yes Primary care physician: [facility] Hospital Course: Diagnoses: Hospital-acquired Retroperitoneal and left lower lobe pneumonia, aspiration pneumonia has been ruled out elevated troponin, suspicious for non-STEMI, status post cardiac cath and stent placement to the LAD surgical abdominal wound dehiscence and infection. CT of the abdomen:2 cystic fluid collection in the abdomen possible postsurgical abscesses Sepsis secondary to above with leukocytosis and tachycardia. No fever or tachypnea, present on admission Possible elements of acute COPD exacerbation recent history of Colonic stricture secondary to Crohn's disease status post subtotal colectomy and ileostomy formation Hyperlipidemia Hypertension Transient hypotensive, improved with fluids and steroids History of CVA/TIA with some residual blood test Hearing difficulty Chronic back pain Leukocytosis secondary to steroid effect and reactive from surgery Hospital course: this is a pleasant 69 years old male with past medical history of asthma, CVA/TIA, diabetes mellitus, hearing disorder, hyperlipidemia, hypertension, chronic back pain, Crohn's disease and he is steroid dependent. He was recently discharge by surgical service for colonic stricture secondary to his Crohn's disease, he underwent subtotal colectomy and ileostomy formation. patient presents this time because his ostomy stitches opened up over the weekend spontaneously. And on presentation patient was found to have elevated cardiac enzymes, however patient was asymptomatic with no chest pain or dyspnea.Cardiac cath showing 95% stenosis of the LAD, and stent was placed by cardiology team , patient was a started on dual antiplatelet therapy with aspirin and Plavix and importance of interest of therapy is explained for the patient extensively. Also culture obtained from his abdominal surgical wound, growing Klebsiella and E. coli. Patient was treated with IV antibiotics as per infectious disease recommendation with Zosyn. CT of the abdomen:2 cystic fluid collection in the abdomen possible postsurgical abscesses, however surgical team felt no need for I and D as they don't behave like abscesses clinically. Also patient hospital course was complicated by acute dyspnea and wheezing, chest x-ray showing patchy infiltrate in the retrocardiac and left lung base suspicious for pneumonia. Patient passed swallow test, he was placed on his regular diet. He continued to be treated with Zosyn, steroids added for possible COPD exacerbation as well as bronchodilator. Patient remained on room air and his symptoms improved and this airway wheezing subsided. On the day of discharge patient was pleasant, lying in bed most of the time, his abdominal wound is improving with dressing is in place. No surrounding cellulitis. No chest pain or dyspnea or change in urine or bowel habits. No fever. Patient was cleared for discharge by all consultants including infectious disease, spring winder and surgery team he has some epigastric discomfort due to steroid, protonix is added, abdomen is soft with no diarrhea ,pt is cleared for discharge by surgery service Patient will be discharged on antibiotics as per ID team, tapered steroids Temi aspirin and Plavix, however the long-term prognosis looks guarded given multiple medical problems with complication happening with a short time besides deconditioning. Physical therapy recommended subacute rehab and patient agrees Problems and management plan were discussed with the patient and he verbalized understanding and acceptance, Patient was found stable and can be discharged home however he needs follow-up as an outpatient. Patient was instructed to follow up with PCP at the [facility] within one week and patient agrees. Patient also was instructed to follow up with spring winder Dr. Archuleta, and surgeon Dr. Phan in 1-2 weeks and he agrees, see discharge instructions for appointments osteomy teaching was done prior discharge Gen: patient is a AAOx3, no distress CVS: S1-S2, RRR, no murmur Lungs: B/L CTA, no wheezing Abdomen: soft, no distention, no tenderness, positive bowel sounds Extremity: no leg edema or induration Time spent more than 35 minutes Patient Condition at Discharge: Fair Plan - Discharge Summary Discharge Rx Participant: Yes New Discharge Prescriptions: New Aspirin 81 mg PO DAILY chew Atorvastatin [Lipitor] 80 mg PO HS #90 tab Clopidogrel [Plavix] 75 mg PO DAILY #90 tab calcium polycarbophiL [Fibercon] 625 mg PO TID #60 tab Nitroglycerin Sl Tabs [Nitrostat] 0.4 mg SUBLINGUAL Q5M PRN #20 tab PRN Reason: Chest Pain predniSONE 5 mg PO DIRECTED #18 tab Montelukast [Singulair] 10 mg PO DAILY #30 tab lisinopriL [Zestril] 5 mg PO QAM #30 tab Amoxicillin/Potassium Clav [Augmentin 875-125 Tablet] 1 tab PO Q12HR 7 Days #14 tab metFORMIN HCL [Glucophage] 500 mg PO BID-W/MEALS tab Heparin Sodium,Porcine [Heparin Sodium] 5,000 unit SQ Q12HR vial Insulin Regular [humuLIN R] 100 unit IV .Q0M vial Pantoprazole Sodium [Protonix] 40 mg PO DAILY #30 tablet. Ondansetron [Zofran] 4 mg PO Q8HR PRN tab PRN Reason: Nausea And Vomiting Continue Acetaminophen Tab [Tylenol] 650 mg PO DIRECTED PRN PRN Reason: Pain Multivit-Min/FA/Lycopen/Lutein [Centrum Silver Tablet] 1 each PO DAILY Finasteride [Proscar] 5 mg PO DAILY Budesonide-Formot 160-4.5 Mcg [Symbicort 160-4.5 Mcg Inhaler] 2 puff INHALATI ON RT-BID PRN PRN Reason: Shortness Of Breath Diphenoxylate HCl/Atropine [Lomotil 2.5-0.025 mg Tablet] 1 tab PO TID 30 Days #90 tab predniSONE 15 mg PO DAILY MDD 25mg PRN carvediloL [Coreg] 3.125 mg PO BID Discontinued Aspirin 325 mg PO DAILY lisinopriL [Zestril] 10 mg PO DAILY glyBURIDE [Diabeta] 5 mg PO BID Fexofenadine HCl [Dara Allergy] 60 mg PO DAILY Discharge Medication List Acetaminophen Tab [Tylenol] 650 mg PO DIRECTED PRN 02/14/19 [History] Budesonide-Formot 160-4.5 Mcg [Symbicort 160-4.5 Mcg Inhaler] 2 puff INHALATION RT-BID PRN 06/11/20 [History] Finasteride [Proscar] 5 mg PO DAILY 06/11/20 [History] Multivit-Min/FA/Lycopen/Lutein [Centrum Silver Tablet] 1 each PO DAILY 06/11/20 [History] Diphenoxylate HCl/Atropine [Lomotil 2.5-0.025 mg Tablet] 1 tab PO TID 30 Days #90 tab 07/02/20 [Rx] carvediloL [Coreg] 3.125 mg PO BID 07/07/20 [History] predniSONE 15 mg PO DAILY MDD 25mg PRN 07/07/20 [History] Aspirin 81 mg PO DAILY chew 07/10/20 [Rx] Atorvastatin [Lipitor] 80 mg PO HS #90 tab 07/10/20 [Rx] Clopidogrel [Plavix] 75 mg PO DAILY #90 tab 07/10/20 [Rx] Montelukast [Singulair] 10 mg PO DAILY #30 tab 07/15/20 [Rx] Nitroglycerin Sl Tabs [Nitrostat] 0.4 mg SUBLINGUAL Q5M PRN #20 tab 07/15/20 [Rx] calcium polycarbophiL [Fibercon] 625 mg PO TID #60 tab 07/15/20 [Rx] lisinopriL [Zestril] 5 mg PO QAM #30 tab 07/15/20 [Rx] predniSONE 5 mg PO DIRECTED #18 tab 07/15/20 [Rx] Amoxicillin/Potassium Clav [Augmentin 875-125 Tablet] 1 tab PO Q12HR 7 Days #14 tab 07/16/20 [Rx] Heparin Sodium,Porcine [Heparin Sodium] 5,000 unit SQ Q12HR vial 07/16/20 [Rx] Insulin Regular [humuLIN R] 100 unit IV .Q0M vial 07/16/20 [Rx] Ondansetron [Zofran] 4 mg PO Q8HR PRN tab 07/16/20 [Rx] Pantoprazole Sodium [Protonix] 40 mg PO DAILY #30 tablet.dr 07/16/20 [Rx] metFORMIN HCL [Glucophage] 500 mg PO BID-W/MEALS tab 07/16/20 [Rx] Follow up Appointment(s)/Referral(s): Maria L Phan DO [Doctor of Osteopathic Medicine] - 07/23/20 11:00 am [facility], [NON-STAFF] - Esteban Archuleta MD [STAFF PHYSICIAN] - 07/24/20 10:15 am [facility] [Primary Care Provider] - 07/23/20 3:00 pm Patient Instructions/Handouts: *Surgery [facility] - After Heart Catheterization - Imaging Nurse Instructions, Ileostomy Care (GEN) Activity/Diet/Wound Care/Special Instructions: Last Ileostomy pouchign system change: 07.16.2020 Osotmy cut to fit Convatec one piece #[id number] with Dinesh seal Also being sent home with the following supplies Convatec moldable flanges # [id number] Convatec pouches with filter #[id number] Osotmy powder No sting prep pads Dinesh seals Coloplast convex #[id number] Discharge Disposition: TRANSFER TO SNF/ECF
== END 2020-07-16 15:47 | DRG 856 ==
LOC: EC 17:02 → 3SCARD 21:00 → 4SSUR 07-11 01:01
PROVIDERS: ADMIT Internal Medicine; ATTEND Internal Medicine
PROC: 027035Z Dilation of Coronary Artery, One Artery with Two Drug-eluting Intraluminal Devices, Percutaneous Approach (ICD-10-PCS; principal; 2020-07-09 07:30)
PROC: 4A023N7 Measurement of Cardiac Sampling and Pressure, Left Heart, Percutaneous Approach (ICD-10-PCS; 2020-07-09 07:30)
PROC: B2111ZZ Fluoroscopy of Multiple Coronary Arteries using Low Osmolar Contrast (ICD-10-PCS; 2020-07-09 07:30)
DX: T81.41XA Infection following a procedure, superficial incisional surgical site, initial encounter (principal); I21.4 Non-ST elevation (NSTEMI) myocardial infarction; A41.9 Sepsis, unspecified organism; T81.31XA Disruption of external operation (surgical) wound, not elsewhere classified, initial encounter; K50.90 Crohn's disease, unspecified, without complications; L03.311 Cellulitis of abdominal wall; I50.22 Chronic systolic (congestive) heart failure; L02.211 Cutaneous abscess of abdominal wall; J44.1 Chronic obstructive pulmonary disease with (acute) exacerbation; E78.5 Hyperlipidemia, unspecified; E83.42 Hypomagnesemia; E86.0 Dehydration; F17.200 Nicotine dependence, unspecified, uncomplicated; G89.29 Other chronic pain; H91.90 Unspecified hearing loss, unspecified ear; Z20.828 Contact with and (suspected) exposure to other viral communicable diseases; N40.0 Benign prostatic hyperplasia without lower urinary tract symptoms; I11.0 Hypertensive heart disease with heart failure; M54.9 Dorsalgia, unspecified; I25.5 Ischemic cardiomyopathy; I25.10 Atherosclerotic heart disease of native coronary artery without angina pectoris; E11.622 Type 2 diabetes mellitus with other skin ulcer; T38.0X5A Adverse effect of glucocorticoids and synthetic analogues, initial encounter; B96.20 Unspecified Escherichia coli [E. coli] as the cause of diseases classified elsewhere; B96.1 Klebsiella pneumoniae [K. pneumoniae] as the cause of diseases classified elsewhere; I95.89 Other hypotension; Z79.899 Other long term (current) drug therapy; Z79.84 Long term (current) use of oral hypoglycemic drugs; Z79.82 Long term (current) use of aspirin; Z79.52 Long term (current) use of systemic steroids; Z79.51 Long term (current) use of inhaled steroids; Z86.73 Personal history of transient ischemic attack (TIA), and cerebral infarction without residual deficits; Z90.49 Acquired absence of other specified parts of digestive tract; Z87.442 Personal history of urinary calculi; Z79.02 Long term (current) use of antithrombotics/antiplatelets; Z86.14 Personal history of Methicillin resistant Staphylococcus aureus infection; Z90.89 Acquired absence of other organs; Z83.3 Family history of diabetes mellitus; Z82.49 Family history of ischemic heart disease and other diseases of the circulatory system; I25.2 Old myocardial infarction; Z93.3 Colostomy status
CPT/HCPCS: 36415; 71045; 71046; 74177; 80048; 80053; 80061; 82550; 83735; 84484; 85025; 85730; 87040; 87070; 87077; 87186; 87205; 87635; 93005; 93306; 93458; 94640; 94760; 96361; 96365; 99285

== ENCOUNTER 2020-07-24 00:55 | Inpatient (IN) | payer OTHER, MEDICARE ==
[2020-07-24] MEDS ORDERED: VANCOMYCIN IV PER PHARMACY 1 EACH MISC MISCELLANE PRN (01:26)
[2020-07-24] MEDS ORDERED: MORPHINE SULFATE 4 MG/ML SYRINGE IVP STA (01:26)
--- NOTE | 2020-07-24 01:28 | ED ---
Recheck HPI - General Stated Complaint: Transfer Time Seen by Provider: 07/24/20 01:05 Source: RN notes reviewed, old records reviewed Limitations: no limitations - History of Present Illness Initial Comments: This is a 69 male in transfer for reevaluation of his surgical wound. Patient has complex surgical abdominal surgery history, ostomy currently which is significant degradation to the area or on that, the skin with secondary cellulitic changes patient again exception in transfer due to patient's surgeon pitting care at this hospital MD Complaint: abnormal lab -: days(s) Initial Visit For: cellulitis, abscess Returns Today for: wound recheck, needs IV antibiotics, persistent/worsening pain related to initial visit Symptoms Since Prior Visit: worsening pain, worsening swelling, worsening redness, fever Context: planned re-check Associated Symptoms: fever, chills, rash, abdominal pain Treatments Prior to Arrival: Given Antibiotics on - Related Data Home Medications Medication Instructions Recorded Confirmed Acetaminophen Tab [Tylenol] 650 mg PO Q6H PRN 02/14/19 07/24/20 Budesonide-Formot 160-4.5 Mcg 2 puff INHALATION RT-BID PRN 06/11/20 07/24/20 [Symbicort 160-4.5 Mcg Inhaler] Finasteride [Proscar] 5 mg PO DAILY 06/11/20 07/24/20 carvediloL [Coreg] 3.125 mg PO BID 07/07/20 07/24/20 INSULIN LISPRO (HumaLOG) [humaLOG] See Protocol SQ ACHS 07/24/20 07/24/20 Nitroglycerin Sl Tabs [Nitrostat] 0.4 mg SL Q5M PRN 07/24/20 07/24/20 Nystatin 1 applic TOPICAL DAILY 07/24/20 07/24/20 Nystatin 1 applic TOPICAL DAILY PRN 07/24/20 07/24/20 Ondansetron [Zofran] 4 mg PO Q8H PRN 07/24/20 07/24/20 metFORMIN HCL [Glucophage] 500 mg PO AC-BID 07/24/20 07/24/20 Previous Rx's Medication Instructions Recorded Diphenoxylate HCl/Atropine 1 tab PO TID 30 Days #90 tab 07/02/20 [Lomotil 2.5-0.025 mg Tablet] Aspirin 81 mg PO DAILY chew 07/10/20 Atorvastatin [Lipitor] 80 mg PO HS #90 tab 07/10/20 Clopidogrel [Plavix] 75 mg PO DAILY #90 tab 07/10/20 Montelukast [Singulair] 10 mg PO DAILY #30 tab 07/15/20 calcium polycarbophiL [Fibercon] 625 mg PO TID #60 tab 07/15/20 Amoxicillin/Potassium Clav 1 tab PO Q12HR 7 Days #14 tab 07/16/20 [Augmentin 875-125 Tablet] Heparin Sodium,Porcine [Heparin 5,000 unit SQ Q12HR vial 07/16/20 Sodium] Pantoprazole Sodium [Protonix] 40 mg PO DAILY #30 tablet.dr 07/16/20 Hydrophilic Cream [Triad Cream] 1 applic TOPICAL TID applic 07/31/20 predniSONE 5 mg PO DAILY tab 07/31/20 Allergies Allergy/AdvReac Type Severity Reaction Status Date / Time No Known Allergies Allergy Verified 07/24/20 07:26 Review of Systems ROS Statement: Those systems with pertinent positive or pertinent negative responses have been documented in the HPI. ROS Other: All systems not noted in ROS Statement are negative. 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 History of Any Multi-Drug Resistant Organisms: C-DIFF, MRSA Date of last positivie culture/infection: January 2015 (At [facility] per patient) MDRO Source:: Right Ankle and Back (per patient) Past Surgical History: Adenoidectomy, Bowel Resection, Orthopedic Surgery, Tonsillectomy Additional Past Surgical History / Comment(s): 01/2015 Laminectomy, discectomy with decompression L5-S1, I&D epidural abscess L5-S1 (STATED HAD MULTIPLE BX- BENIGN)and aspiration R ankle, [place] [facility] [place] . le ft wrist surgically repaired after fx-PLATE/SCREW. RT HIP TEVIN/SCREWS. Past Anesthesia/Blood Transfusion Reactions: No Reported Reaction Additional Past Anesthesia/Blood Transfusion Reaction / Comment(s): Pt states he recieved blood 02/2015 at [facility] without reaction. Past Psychological History: No Psychological Hx Reported Additional Psychological History / Comment(s): Pt resideswith daughter. Drives, has dogs. Smoking Status: Former smoker, Never smoker Past Alcohol Use History: None Reported Additional Past Alcohol Use History / Comment(s): Patient has a history of smoking marijuana half ounce per day and quit in 1998. He denies any alcohol use SINCE 1975. Past Drug Use History: None Reported Additional Drug Use History / Comment(s): No current use. - Past Family History Father Family Medical History: Myocardial Infarction ([place]) Additional Family Medical History / Comment(s): Father of massive [place]. Mother Family Medical History: Diabetes Mellitus General Exam - General Exam Comments Initial Comments: r worsening of abdominal cellulitis secondary to wound General appearance: alert, in no apparent distress Head exam: Present: atraumatic, normocephalic, normal inspection Eye exam: Present: normal appearance, PERRL, EOMI. Absent: scleral icterus, conjunctival injection, periorbital swelling ENT exam: Present: normal exam, mucous membranes moist Neck exam: Present: normal inspection. Absent: tenderness, meningismus, lymphadenopathy Respiratory exam: Present: normal lung sounds bilaterally. Absent: respiratory distress, wheezes, rales, rhonchi, stridor Cardiovascular Exam: Present: regular rate, normal rhythm, normal heart sounds. Absent: systolic murmur, diastolic murmur, rubs, gallop, clicks GI/Abdominal exam: Present: soft, normal bowel sounds. Absent: distended, tenderness, guarding, rebound, rigid Extremities exam: Present: normal inspection, full ROM, normal capillary refill. Absent: tenderness, pedal edema, joint swelling, calf tenderness Back exam: Present: normal inspection Neurological exam: Present: alert, oriented X3, CN II-XII intact Psychiatric exam: Present: normal affect, normal mood Skin exam: Present: warm, dry, intact, normal color. Absent: rash Course Vital Signs 07/24/20 07/24/20 01:04 02:38 Temperature 98.7 F 97.9 F Pulse Rate 80 75 Respiratory 19 19 Rate Blood Pressure 116/64 109/61 O2 Sat by Pulse 98 98 Oximetry - Reevaluation(s) Reevaluation #1: Medical record is reviewed transferring paperwork is reviewed patient does have improvement of symptoms in the ER Patient informed of findings and results, questions are answered Patient will be admitted for antibiotics and surgical consultation Medical Decision Making - Medical Decision Making August male known this facility, patient presents today for transfer accepted in transfer for postop wound cellulitis secondary to ostomy leaking and significant corrosive effect on the surrounding skin from the ostomy. Patient be admitted for surgical evaluation management, continue treatment and wound care - Lab Data Result diagrams: 07/31/20 05:14 07/30/20 06:26 Disposition Clinical Impression: Wound cellulitis Disposition: ADMITTED IP TO THIS HOSP Condition: Fair Is patient prescribed a controlled substance at d/c from ED?: No
[2020-07-24] MEDS ORDERED: VANCOMYCIN 1,750 MG in SODIUM CHLORIDE 0.9% 500 ML 500 ML IVPB ONE (02:00)
[2020-07-24] MEDS: SODIUM CHLORIDE 0.9% 1,000 ML IV ONE ×2 (02:08→09:12)
[2020-07-24 02:36] LABS: Basophils % (A) 0 %; Eosinophils % (A) 0 %; HCT 37.7 % (39.0-53.0); HGB 12.1 gm/dL (13.0-17.5); Hypochromasia Slight; Lymphocytes # (A) 1.1 k/uL (1.0-4.8); Lymphocytes % (A) 5 %; MCH 30.2 pg (25.0-35.0); MCV 94.4 fL (80.0-100.0); Mean Platelet Volume 7.3; Monocytes # (A) 1.2 k/uL (0-1.0); Monocytes % (A) 5 %; Neutrophils # (A) 21.2 k/uL (1.3-7.7); Neutrophils % (A) 89 %; Platelet Count 342 k/uL (150-450); RBC 3.99 m/uL (4.30-5.90); RDW 15.9 % (11.5-15.5); WBC 23.7 k/uL (3.8-10.6)
[2020-07-24 02:46] LABS: African American GFR (CKD) 85 (>60 ml/min/1.73 sqM); Anion Gap 6 mmol/L; Blood Urea Nitrogen 57 mg/dL (9-20); Calcium 7.7 mg/dL (8.4-10.2); Carbon Dioxide 14 mmol/L (22-30); Chloride 112 mmol/L (98-107); Glucose 114 mg/dL (74-99); Magnesium 1.7 mg/dL (1.6-2.3); Non-African American GFR(CKD) 74 (>60 ml/min/1.73 sqM); Phosphorus 3.4 mg/dL (2.5-4.5); Sodium 132 mmol/L (137-145)
[2020-07-24 07:07] LABS: Glucose,Whole Blood 107 mg/dL (75-99)
[2020-07-24] MEDS ORDERED: ONDANSETRON 4 MG TAB PO PRN (07:59)
[2020-07-24] MEDS ORDERED: ACETAMINOPHEN TAB 325 MG TAB PO PRN (07:59)
[2020-07-24] MEDS ORDERED: NITROGLYCERIN SL TABS 0.4 MG TAB SUBLINGUAL PRN (07:59)
[2020-07-24] MEDS: ASPIRIN 81 MG PO SCH (09:09)
[2020-07-24] MEDS: predniSONE 10 MG TAB PO SCH (09:09)
[2020-07-24] MEDS: MONTELUKAST 10 MG TAB PO SCH (09:09)
[2020-07-24] MEDS: FINASTERIDE 5 MG TAB PO SCH (09:09)
[2020-07-24] MEDS: MORPHINE SULFATE 4 MG/ML SYRINGE IVP PRN (09:09)
[2020-07-24] MEDS: CLOPIDOGREL 75 MG TAB PO SCH (09:09)
[2020-07-24] MEDS: carvediloL 3.125 MG TAB PO SCH ×2 (09:09→21:11)
[2020-07-24] MEDS: HEPARIN SODIUM,PORCINE 5,000 UNIT/ML 1 ML VIAL SQ SCH ×2 (09:09→21:11)
[2020-07-24] MEDS: PIPERACILLIN-TAZOBACTAM 3.375 GM in SODIUM CHLORIDE 0.9% 100 ML IVPB SCH ×2 (09:10→17:39)
[2020-07-24] MEDS ORDERED: VANCOMYCIN 1,750 MG in SODIUM CHLORIDE 0.9% 500 ML 500 ML IVPB SCH (10:00)
--- NOTE | 2020-07-24 10:15 | P.GSCN ---
History of Present Illness Consult date: 07/24/20 Reason for Consult: Cellulitis, ostomy difficulty History of present illness: The patient is status post subtotal colectomy for Crohn's disease. He had been readmitted with myocardial infarction. He subsequently went to rehab. They've had trouble keeping on appliance on has some significant erythema on his abdominal wall and he is admitted. He's having no nausea or vomiting. He says he is not eating much because nothing tastes good. Denies fevers or chills. 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 Ileostomy History of Any Multi-Drug Resistant Organisms: C-DIFF, MRSA Year Discovered:: January 2015 (At [facility] per patient) MDRO Source:: Right Ankle and Back (per patient) Past Surgical History: Adenoidectomy, Bowel Resection, Orthopedic Surgery, Tonsillectomy Additional Past Surgical History / Comment(s): 01/2015 Laminectomy, discectomy with decompression L5-S1, I&D epidural abscess L5-S1 (STATED HAD MULTIPLE BX- BENIGN)and aspiration R ankle, [place] [facility] [place] . left wrist surgically repaired after fx-PLATE/SCREW. RT HIP TEVIN/SCREWS. Past Anesthesia/Blood Transfusion Reactions: No Reported Reaction Additional Past Anesthesia/Blood Transfusion Reaction / Comm: Pt states he recieved blood 02/2015 at [facility] without reaction. Past Psychological History: No Psychological Hx Reported Additional Psychological History / Comment(s): from [facility] rehab facility Smoking Status: Former smoker Past Alcohol Use History: None Reported Additional Past Alcohol Use History / Comment(s): He denies any alcohol use SINCE 1975. Past Drug Use History: None Reported Additional Drug Use History / Comment(s): No current use. - Past Family History Father Family Medical History: Myocardial Infarction ([place]) Additional Family Medical History / Comment(s): Father of massive [place]. Mother Family Medical History: Diabetes Mellitus Medications and Allergies Home Medications Medication Instructions Recorded Confirmed Type Acetaminophen Tab [Tylenol] 650 mg PO Q6H PRN 02/14/19 07/24/20 History Budesonide-Formot 160-4.5 Mcg 2 puff INHALATION RT-BID PRN 06/11/20 07/24/20 History [Symbicort 160-4.5 Mcg Inhaler] Finasteride [Proscar] 5 mg PO DAILY 06/11/20 07/24/20 History Multivit-Min/FA/Lycopen/Lutein 1 tab PO DAILY 06/11/20 07/24/20 History [Centrum Silver Tablet] Diphenoxylate HCl/Atropine 1 tab PO TID 30 Days #90 tab 07/02/20 07/24/20 Rx [Lomotil 2.5-0.025 mg Tablet] carvediloL [Coreg] 3.125 mg PO BID 07/07/20 07/24/20 History predniSONE 15 mg PO DIRECTED 07/07/20 07/24/20 History Aspirin 81 mg PO DAILY chew 07/10/20 07/24/20 Rx Atorvastatin [Lipitor] 80 mg PO HS #90 tab 07/10/20 07/24/20 Rx Clopidogrel [Plavix] 75 mg PO DAILY #90 tab 07/10/20 07/24/20 Rx Montelukast [Singulair] 10 mg PO DAILY #30 tab 07/15/20 07/24/20 Rx calcium polycarbophiL [Fibercon] 625 mg PO TID #60 tab 07/15/20 07/24/20 Rx Amoxicillin/Potassium Clav 1 tab PO Q12HR 7 Days #14 tab 07/16/20 07/24/20 Rx [Augmentin 875-125 Tablet] Heparin Sodium,Porcine [Heparin 5,000 unit SQ Q12HR vial 07/16/20 07/24/20 Rx Sodium] Pantoprazole Sodium [Protonix] 40 mg PO DAILY #30 tablet. 07/16/20 07/24/20 Rx INSULIN LISPRO (HumaLOG) [humaLOG] See Protocol SQ ACHS 07/24/20 07/24/20 History Nitroglycerin Sl Tabs [Nitrostat] 0.4 mg SL Q5M PRN 07/24/20 07/24/20 History Nystatin 1 applic TOPICAL DAILY 07/24/20 07/24/20 History Nystatin 1 applic TOPICAL DAILY PRN 07/24/20 07/24/20 History Ondansetron [Zofran] 4 mg PO Q8H PRN 07/24/20 07/24/20 History lisinopriL [Zestril] 5 mg PO DAILY 07/24/20 07/24/20 History metFORMIN HCL [Glucophage] 500 mg PO AC-BID 07/24/20 07/24/20 History predniSONE See Taper PO DAILY 07/24/20 07/24/20 History Allergies Allergy/AdvReac Type Severity Reaction Status Date / Time No Known Allergies Allergy Verified 07/24/20 07:26 Surgical - Exam Osteopathic Statement: *. No significant issues noted on an osteopathic structural exam other than those noted in the History and Physical/Consult. Vital Signs Temp Pulse Resp BP Pulse Ox 98.7 F 80 19 116/64 98 07/24/20 01:04 07/24/20 01:04 07/24/20 01:04 07/24/20 01:04 07/24/20 01:04 - General well developed, well nourished, no distress - Neck trachea midline - Respiratory normal respiratory effort - Abdomen Abdomen: soft, tender (Around an inferior to the ileostomy, this appears to be due to skin excoriation), bowel sounds, wound (The lower midline wound is shallow and granulating in nicely. Around the ileostomy there is significant wound excoriation. Appears her some pooling of enteric contents at the medial edge of the ileostomy) Results - Labs 07/24/20 02:24 07/24/20 02:24 Abnormal Lab Results - Last 24 Hours (Table) 07/24/20 07/24/20 07/24/20 Range/Units 02:24 02:24 07:05 WBC 23.7 H (3.8-10.6) k/uL RBC 3.99 L (4.30-5.90) m/uL Hgb 12.1 L (13.0-17.5) gm/dL Hct 37.7 L (39.0-53.0) % RDW 15.9 H (11.5-15.5) % Neutrophils # 21.2 H (1.3-7.7) k/uL Monocytes # 1.2 H (0-1.0) k/uL Sodium 132 L (137-145) mmol/L Chloride 112 H (98-107) mmol/L Carbon Dioxide 14 L (22-30) mmol/L BUN 57 H (9-20) mg/dL Glucose 114 H (74-99) mg/dL POC Glucose (mg/dL) 107 H (75-99) mg/dL Calcium 7.7 L (8.4-10.2) mg/dL Diabetes panel 07/24/20 Range/Units 02:24 Sodium 132 L (137-145) mmol/L Potassium 5.0 (3.5-5.1) mmol/L Chloride 112 H (98-107) mmol/L Carbon Dioxide 14 L (22-30) mmol/L BUN 57 H (9-20) mg/dL Creatinine 1.05 (0.66-1.25) mg/dL Glucose 114 H (74-99) mg/dL Calcium 7.7 L (8.4-10.2) mg/dL Calcium panel 07/24/20 Range/Units 02:24 Calcium 7.7 L (8.4-10.2) mg/dL Phosphorus 3.4 (2.5-4.5) mg/dL Pituitary panel 07/24/20 Range/Units 02:24 Sodium 132 L (137-145) mmol/L Potassium 5.0 (3.5-5.1) mmol/L Chloride 112 H (98-107) mmol/L Carbon Dioxide 14 L (22-30) mmol/L BUN 57 H (9-20) mg/dL Creatinine 1.05 (0.66-1.25) mg/dL Glucose 114 H (74-99) mg/dL Calcium 7.7 L (8.4-10.2) mg/dL Adrenal panel 07/24/20 Range/Units 02:24 Sodium 132 L (137-145) mmol/L Potassium 5.0 (3.5-5.1) mmol/L Chloride 112 H (98-107) mmol/L Carbon Dioxide 14 L (22-30) mmol/L BUN 57 H (9-20) mg/dL Creatinine 1.05 (0.66-1.25) mg/dL Glucose 114 H (74-99) mg/dL Calcium 7.7 L (8.4-10.2) mg/dL Assessment and Plan (1) Ileostomy status Current Visit: Yes Status: Acute Code(s): Z93.2 - ILEOSTOMY STATUS SNOMED Code(s): 376697376 (2) Abdominal wall cellulitis Current Visit: No Status: Acute Code(s): L03.311 - CELLULITIS OF ABDOMINAL WALL SNOMED Code(s): 47947540 (3) Crohn's colitis Current Visit: No Status: Acute Code(s): K50.10 - CROHN'S DISEASE OF LARGE INTESTINE WITHOUT COMPLICATIONS SNOMED Code(s): 19444935 Plan: His main issue appears to be chemical inflammation and probable cellulitis due to the ostomy appliance not adhering well. We'll order wound care/ostomy nurse to evaluate him for possible concave appliance or additional ring around the ileostomy itself. I'll reevaluate him Monday. If there still appears to be drainage from the medial aspect, him he needs taken to the OR to rule out any sort of fistula. Further recommendations to follow.
[2020-07-24 12:13] LABS: Glucose,Whole Blood 118 mg/dL (75-99)
[2020-07-24 14:10] VITALS: BMI 30.2
[2020-07-24] MEDS: DIPHENOX-ATROP 2.5-0.025 MG 1 EACH TAB PO SCH ×3 (15:40→21:19)
[2020-07-24] MEDS: SODIUM CHLORIDE 0.9% 1,000 ML IV SCH ×3 (15:42→21:20)
[2020-07-24] MEDS: PANTOPRAZOLE 40 MG TABLET PO SCH (15:42)
[2020-07-24 17:20] LABS: Glucose,Whole Blood 343 mg/dL (75-99)
[2020-07-24] MEDS: metFORMIN 500 MG TAB PO SCH (17:46)
[2020-07-24 20:16] LABS: Glucose,Whole Blood 379 mg/dL (75-99)
[2020-07-24] MEDS: SYMBICORT 160-4.5 MCG INHALER INHALATION PRN (20:18)
[2020-07-24] MEDS: ATORVASTATIN 80 MG TAB PO SCH (21:11)
[2020-07-24] MEDS: INSULIN ASPART (NovoLOG) 100 UNIT/ML VIAL SQ SCH (21:11)
[2020-07-25] MEDS: MORPHINE SULFATE 4 MG/ML SYRINGE IVP PRN ×3 (01:41→22:45)
[2020-07-25] MEDS: PIPERACILLIN-TAZOBACTAM 3.375 GM in SODIUM CHLORIDE 0.9% 100 ML IVPB SCH ×3 (02:55→16:56)
[2020-07-25 07:52] LABS: Glucose,Whole Blood 220 mg/dL (75-99)
[2020-07-25] MEDS: SYMBICORT 160-4.5 MCG INHALER INHALATION PRN ×2 (08:44→19:24)
[2020-07-25] MEDS: INSULIN ASPART (NovoLOG) 100 UNIT/ML VIAL SQ SCH ×4 (10:27→22:45)
[2020-07-25] MEDS: carvediloL 3.125 MG TAB PO SCH ×2 (10:28→22:45)
[2020-07-25] MEDS: predniSONE 10 MG TAB PO SCH (10:28)
[2020-07-25] MEDS: ASPIRIN 81 MG PO SCH (10:28)
[2020-07-25] MEDS: CLOPIDOGREL 75 MG TAB PO SCH (10:28)
[2020-07-25] MEDS: FINASTERIDE 5 MG TAB PO SCH (10:28)
[2020-07-25] MEDS: PANTOPRAZOLE 40 MG TABLET PO SCH (10:28)
[2020-07-25] MEDS: metFORMIN 500 MG TAB PO SCH ×2 (10:28→22:44)
[2020-07-25] MEDS: MONTELUKAST 10 MG TAB PO SCH (10:28)
[2020-07-25] MEDS: HEPARIN SODIUM,PORCINE 5,000 UNIT/ML 1 ML VIAL SQ SCH ×2 (10:29→22:44)
[2020-07-25 11:57] LABS: Glucose,Whole Blood 322 mg/dL (75-99)
[2020-07-25 12:48] LABS: Basophils # (A) 0.1 k/uL (0-0.2); Basophils % (A) 0 %; Eosinophils # (A) 0.2 k/uL (0-0.7); Eosinophils % (A) 1 %; HCT 38.1 % (39.0-53.0); HGB 11.8 gm/dL (13.0-17.5); Hypochromasia Moderate; Lymphocytes # (A) 1.2 k/uL (1.0-4.8); Lymphocytes % (A) 6 %; MCHC 31.1 g/dL (31.0-37.0); MCV 96.4 fL (80.0-100.0); Mean Platelet Volume 7.3; Monocytes # (A) 1.1 k/uL (0-1.0); Monocytes % (A) 6 %; Neutrophils # (A) 16.2 k/uL (1.3-7.7); Neutrophils % (A) 86 %; Platelet Count 310 k/uL (150-450); RBC 3.95 m/uL (4.30-5.90); RDW 15.5 % (11.5-15.5); WBC 18.8 k/uL (3.8-10.6)
--- NOTE | 2020-07-25 12:52 | P.PN ---
Subjective Progress Note Date: 07/25/20 patient doing well no complaints Objective - Vital Signs Vital signs: Vital Signs Temp 97.8 F 07/25/20 04:49 Pulse 82 07/25/20 04:49 Resp 19 07/25/20 04:49 BP 114/74 07/25/20 04:49 Pulse Ox 94 L 07/25/20 04:49 Intake & Output 07/24/20 07/25/20 07/25/20 18:59 06:59 18:59 Intake Total 700 Balance 700 Weight 98.43 kg Intake: Intake, IV Titration 700 Amount Sodium Chloride 0.9% 1, 350 000 ml @ 100 mls/hr IV . Q10H ONE Rx#:[id number] Sodium Chloride 0.9% 1, 350 000 ml @ 100 mls/hr IV . Q10H JOHN Rx#:[id number] Other: Voiding Method Urinal Urinal # Voids 2 - Labs CBC & Chem 7: 07/25/20 12:04 07/24/20 02:24 Labs: Abnormal Lab Results - Last 24 Hours (Table) 07/24/20 07/24/20 07/25/20 Range/Units 17:17 20:15 07:41 WBC (3.8-10.6) k/uL RBC (4.30-5.90) m/uL Hgb (13.0-17.5) gm/dL Hct (39.0-53.0) % Neutrophils # (1.3-7.7) k/uL Monocytes # (0-1.0) k/uL POC Glucose (mg/dL) 343 H 379 H 220 H (75-99) mg/dL 07/25/20 07/25/20 Range/Units 11:56 12:04 WBC 18.8 H (3.8-10.6) k/uL RBC 3.95 L (4.30-5.90) m/uL Hgb 11.8 L (13.0-17.5) gm/dL Hct 38.1 L (39.0-53.0) % Neutrophils # 16.2 H (1.3-7.7) k/uL Monocytes # 1.1 H (0-1.0) k/uL POC Glucose (mg/dL) 322 H (75-99) mg/dL Assessment and Plan Assessment: skin cellulitis secondary to osotomy Plan: continue with local wound care
[2020-07-25 12:53] LABS: African American GFR (CKD) >90 (>60 ml/min/1.73 sqM); Anion Gap 5 mmol/L; Blood Urea Nitrogen 22 mg/dL (9-20); Calcium 8.2 mg/dL (8.4-10.2); Carbon Dioxide 20 mmol/L (22-30); Chloride 106 mmol/L (98-107); Glucose 346 mg/dL (74-99); Non-African American GFR(CKD) 85 (>60 ml/min/1.73 sqM); Potassium 4.6 mmol/L (3.5-5.1); Sodium 131 mmol/L (137-145)
[2020-07-25] MEDS: DIPHENOX-ATROP 2.5-0.025 MG 1 EACH TAB PO SCH ×3 (13:55→23:01)
[2020-07-25] MEDS: SODIUM CHLORIDE 0.9% 1,000 ML IV SCH (13:57)
--- NOTE | 2020-07-25 14:49 | P.HPIM ---
History of Present Illness this is a pleasant 69 years old male with past medical history of asthma, CVA/TIA, diabetes mellitus, hearing disorder, hyperlipidemia, hypertension, chronic back pain, Crohn's disease and he is steroid dependent. He was recently discharge by surgical service for colonic stricture secondary to his Crohn's disease, he underwent subtotal colectomy and ileostomy formation. He came back to the hospital again 07/07-07/16 4 non-STEMI and abdominal wound dehiscence around the colostomy back. at That time CT of the abdomen:2 cystic fluid collection in the abdomen possible postsurgical abscesses, however surgical team felt no need for I and D as they don't behave like abscesses clinically. He was evaluated by surgical team and infectious disease at that time, no need for surgical intervention, he was treated with Zosyn and discharged on short course of oral antibiotics to rehab. He presents this time with similar problem where the colostomy bag keep exploding and does not fit in a Place, due to the near point wound and surrounding cellulitis and some discharge. Surgical team already evaluated the patient and we'll keep monitoring call Monday for possible surgical evaluation in the operation room to rule out fistula versus others currently patient looks his stable with normal vitals, denies any other symptoms, no chest pain or dyspnea or abdominal pain, no nausea vomiting, colostomy back still functioning with stool output. No fever patient presents this time because his ostomy stitches opened up over the weekend spontaneously. And on presentation patient was found to have elevated cardiac enzymes, however patient was asymptomatic with no chest pain or dyspnea.Cardiac cath showing 95% stenosis of the LAD, and stent was placed by cardiology team , patient was a started on dual antiplatelet therapy with aspirin and Plavix and importance of interest of therapy is explained for the patient extensively. Also culture obtained from his abdominal surgical wound, growing Klebsiella and E. coli. Patient was treated with IV antibiotics as per infectious disease recommendation with Zosyn. CT of the abdomen:2 cystic fluid collection in the abdomen possible postsurgical abscesses, however surgical team felt no need for I and D as they don't behave like abscesses clinically. Also patient hospital course was complicated by acute dyspnea and wheezing, chest x-ray showing patchy infiltrate in the retrocardiac and left lung base suspicious for pneumonia. Patient passed swallow test, he was placed on his regular diet. He continued to be treated with Zosyn, steroids added for possible COPD exacerbation as well as bronchodilator. Patient remained on room air and his symptoms improved and this airway wheezing subsided. On the day of discharge patient was pleasant, lying in bed most of the time, his abdominal wound is improving with dressing is in place. No surrounding cellulitis. No chest pain or dyspnea or change in urine or bowel habits. No fever. Patient was cleared for discharge by all consultants including infectious disease, drag sawyer and surgery team he has some epigastric discomfort due to steroid, protonix is added, abdomen is soft with no diarrhea ,pt is cleared for discharge by surgery service Review of Systems CONSTITUTIONAL: No fever, no malaise, no fatigue. HEENT: No recent visual problems or hearing problems. Denied any sore throat. CARDIOVASCULAR: No orthopnea, PND, no palpitations, no syncope. PULMONARY: No shortness of breath, no cough, no hemoptysis. GASTROINTESTINAL: No diarrhea, no nausea, no vomiting, no abdominal pain. Normoactive bowel sounds. NEUROLOGICAL: No headaches, no weakness, no numbness. HEMATOLOGICAL: Denies any bleeding or petechiae. GENITOURINARY: Denies any burning micturition, frequency, or urgency. MUSCULOSKELETAL/RHEUMATOLOGICAL: Denies any joint pain, swelling, or any muscle pain. ENDOCRINE: Denies any polyuria or polydipsia. 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 left wrist surgically repaired after fx-PLATE/SCREW. RT HIP TEVIN/SCREWS. Past Anesthesia/Blood Transfusion Reactions: No Reported Reaction Additional Past Anesthesia/Blood Transfusion Reaction / Comment(s): Pt states he recieved blood 02/2015 at [facility] without reaction. Past Psychological History: No Psychological Hx Reported Additional [facility] History [facility] Smoking Status: Former smoker Past Alcohol Use History: None Reported Additional Past Alcohol Use History / Comment(s): He denies any alcohol use SINCE 1975. Past Drug Use History: None Reported Additional Drug Use History / Comment(s): No current use. - Past Family History Father Family Medical History: Myocardial Infarction (AR) Additional Family Medical History / Comment(s): Father of massive AR. Mother Family Medical History: Diabetes Mellitus Medications and Allergies Home Medications Medication Instructions Recorded Confirmed Type Acetaminophen Tab [Tylenol] 650 mg PO Q6H PRN 02/14/19 07/24/20 History Budesonide-Formot 160-4.5 Mcg 2 puff INHALATION RT-BID PRN 06/11/20 07/24/20 History [Symbicort 160-4.5 Mcg Inhaler] Finasteride [Proscar] 5 mg PO DAILY 06/11/20 07/24/20 History Multivit-Min/FA/Lycopen/Lutein 1 tab PO DAILY 06/11/20 07/24/20 History [Centrum Silver Tablet] Diphenoxylate HCl/Atropine 1 tab PO TID 30 Days #90 tab 07/02/20 07/24/20 Rx [Lomotil 2.5-0.025 mg Tablet] carvediloL [Coreg] 3.125 mg PO BID 07/07/20 07/24/20 History predniSONE 15 mg PO DIRECTED 07/07/20 07/24/20 History Aspirin 81 mg PO DAILY chew 07/10/20 07/24/20 Rx Atorvastatin [Lipitor] 80 mg PO HS #90 tab 07/10/20 07/24/20 Rx Clopidogrel [Plavix] 75 mg PO DAILY #90 tab 07/10/20 07/24/20 Rx Montelukast [Singulair] 10 mg PO DAILY #30 tab 07/15/20 07/24/20 Rx calcium polycarbophiL [Fibercon] 625 mg PO TID #60 tab 07/15/20 07/24/20 Rx Amoxicillin/Potassium Clav 1 tab PO Q12HR 7 Days #14 tab 07/16/20 07/24/20 Rx [Augmentin 875-125 Tablet] Heparin Sodium,Porcine [Heparin 5,000 unit SQ Q12HR vial 07/16/20 07/24/20 Rx Sodium] Pantoprazole Sodium [Protonix] 40 mg PO DAILY #30 tablet. 07/16/20 07/24/20 Rx INSULIN LISPRO (HumaLOG) [humaLOG] See Protocol SQ ACHS 07/24/20 07/24/20 History Nitroglycerin Sl Tabs [Nitrostat] 0.4 mg SL Q5M PRN 07/24/20 07/24/20 History Nystatin 1 applic TOPICAL DAILY 07/24/20 07/24/20 History Nystatin 1 applic TOPICAL DAILY PRN 07/24/20 07/24/20 History Ondansetron [Zofran] 4 mg PO Q8H PRN 07/24/20 07/24/20 History lisinopriL [Zestril] 5 mg PO DAILY 07/24/20 07/24/20 History metFORMIN HCL [Glucophage] 500 mg PO AC-BID 07/24/20 07/24/20 History predniSONE See Taper PO DAILY 07/24/20 07/24/20 History Allergies Allergy/AdvReac Type Severity Reaction Status Date / Time No Known Allergies Allergy Verified 07/24/20 07:26 Physical Exam Vitals: Vital Signs Temp Pulse Pulse Resp BP BP Pulse Ox 07/24/20 11:45 97.4 F L 79 20 104/70 95 07/24/20 05:00 97.6 F 73 18 97/64 96 07/24/20 03:31 97.9 F 80 18 91/58 93 L 07/24/20 02:38 97.9 F 75 19 109/61 98 07/24/20 01:04 98.7 F 80 19 116/64 98 Intake and Output 07/23/20 07/24/20 07/24/20 22:59 06:59 14:59 Intake Total 200 Balance 200 Intake: Oral 200 Other: # Voids 2 2 Weight 98.43 kg 98.43 kg GENERAL: The patient is alert and oriented x3, not in any acute distress. Well developed, well nourished. HEENT: Pupils are round and equally reacting to light. EOMI. No scleral icterus. No conjunctival pallor. Normocephalic, atraumatic. No pharyngeal erythema. No thyromegaly. CARDIOVASCULAR: S1 and S2 present. No murmurs, rubs, or gallops. PULMONARY: Chest is clear to auscultation, no wheezing or crackles. -ABDOMEN: Soft, nontender, nondistended, normoactive bowel sounds. No palpable organomegaly. Colostomy bag is in place currently, with a small surrounding area of cellulitis, surgical wound dehiscence with some discharge MUSCULOSKELETAL: No joint swelling or deformity. EXTREMITIES: No cyanosis, clubbing, or pedal edema. NEUROLOGICAL: Gross neurological examination did not reveal any focal deficits. SKIN: No rashes. No petechiae Results CBC & Chem 7: 07/25/20 12:04 07/25/20 12:04 Labs: Abnormal Lab Results - Last 24 Hours (Table) 07/24/20 07/24/20 07/24/20 Range/Units 02:24 02:24 07:05 WBC 23.7 H (3.8-10.6) k/uL RBC 3.99 L (4.30-5.90) m/uL Hgb 12.1 L (13.0-17.5) gm/dL Hct 37.7 L (39.0-53.0) % RDW 15.9 H (11.5-15.5) % Neutrophils # 21.2 H (1.3-7.7) k/uL Monocytes # 1.2 H (0-1.0) k/uL Sodium 132 L (137-145) mmol/L Chloride 112 H (98-107) mmol/L Carbon Dioxide 14 L (22-30) mmol/L BUN 57 H (9-20) mg/dL Glucose 114 H (74-99) mg/dL POC Glucose (mg/dL) 107 H (75-99) mg/dL Calcium 7.7 L (8.4-10.2) mg/dL 07/24/20 Range/Units 12:12 WBC (3.8-10.6) k/uL RBC (4.30-5.90) m/uL Hgb (13.0-17.5) gm/dL Hct (39.0-53.0) % RDW (11.5-15.5) % Neutrophils # (1.3-7.7) k/uL Monocytes # (0-1.0) k/uL Sodium (137-145) mmol/L Chloride (98-107) mmol/L Carbon Dioxide (22-30) mmol/L BUN (9-20) mg/dL Glucose (74-99) mg/dL POC Glucose (mg/dL) 118 H (75-99) mg/dL Calcium (8.4-10.2) mg/dL Thrombosis Risk Factor Assmnt - Choose All That Apply Any of the Below Risk Factors Present?: No Other Risk Factors: Yes Each Risk Factor Represents 2 Points: Age 61-74 years Other congenital or acquired thrombophilia - If yes, enter type in comment: No Thrombosis Risk Factor Assessment Total Risk Factor Score: 2 Thrombosis Risk Factor Assessment Level: Low Risk Assessment and Plan Assessment: Malfunction of the colostomy and its back due to nearby wound and cellulitis pericolostomy Abdominal wall cellulitis and cigarettes discharge, rule out fistula Recent history of Hospital-acquired left lower lobe pneumonia, aspiration pneumonia has been ruled out Recent history of non-STEMI, status post cardiac cath and stent placement to the LAD Recent surgical abdominal wound dehiscence and infection. CT of the abdomen:2 cystic fluid collection in the abdomen, no need for surgical intervention per surgery team Diabetes mellitus with hyperglycemia COPD with no acute exacerbation recent history of Colonic stricture secondary to Crohn's disease status post sub total colectomy and ileostomy formation Hyperlipidemia Hypertension Transient hypotensive, improved with fluids and steroids History of CVA/TIA with some residual blood test Hearing difficulty Chronic back pain Leukocytosis secondary to steroid effect and reactive from surgery Plan: This is a pleasant 69 years old male who presents with a malfunctioning colostomy back with surrounding cellulitis and surgery team on the case to rule out fistula probably on Monday patient is to go to the OR , we'll start the patient on Zosyn, follow-up vitals and clinically. Continue monitoring sugar with insulin sliding scale, increase metformin 500 mg up to 1000 twice a day Consult colostomy nurse Labs and medication were reviewed.. Continue same treatment. Continue with sy mptomatic treatment. Resume home medication. Monitor lytes and vitals. DVT and GI prophylaxis. Further recommendations depends on the clinical course of the patient DVT prophylaxis: Subcutaneous heparin GI Prophylaxis: Ppi
[2020-07-25 17:23] LABS: Glucose,Whole Blood 340 mg/dL (75-99)
[2020-07-25 20:23] LABS: Glucose,Whole Blood 327 mg/dL (75-99)
[2020-07-25] MEDS: ATORVASTATIN 80 MG TAB PO SCH (22:44)
[2020-07-26] MEDS: PIPERACILLIN-TAZOBACTAM 3.375 GM in SODIUM CHLORIDE 0.9% 100 ML IVPB SCH ×3 (00:51→17:48)
[2020-07-26] MEDS: SODIUM CHLORIDE 0.9% 1,000 ML IV SCH ×2 (00:53→23:37)
--- NOTE | 2020-07-26 01:02 | P.PN ---
Subjective Progress Note Date: 07/25/20 Principal diagnosis: Cellulitis around colostomy site Mr. Betancourt is a 69-year-old male with a past medical history of asthma, CVA/TIA, diabetes mellitus, urine disorder, hypertension, hyperlipidemia, chronic low back pain, Crohn's disease steroid-dependent coming into the hospital today for leakage from the colostomy bag. Patient was recently discharged from surgical service for colonic stricture secondary to Crohn's disease, he underwent subtotal colectomy and ileostomy. He was then admitted back to the hospital for NSTEMI and abdominal wound dehiscence around the colostomy bag. The patient was treated with Zosyn and discharged on a course of oral antibiotic to rehab. But he presents with the same complaint of colostomy bag being exploding and having drainage all around the colostomy with excoriation of the skin around it. The patient is lying comfortably in bed and states that he still has pain and itching around the colostomy bag. As per the nursing staff report that has been continuous leakage from the colostomy with excoriation of the skin colostomy site. On reviewing the vitals temperature 98.1 heart rate 75 respiratory rate 16, saturating 94% on room air with blood pressure 109/72. On reviewing the patient's labs white count of 18.8 hemoglobin 11.8 platelets 310. Sodium 131, potassium 4.5, chloride 107 bicarb 20, BUN 22, creatinine 0.93. He is being continued upon antibiotics in the form of Zosyn. Active Medications Acetaminophen (Acetaminophen Tab 325 Mg Tab) 650 mg PO Q6H PRN PRN Reason: Fever and/ or Pain Aspirin (Aspirin 81 Mg) 81 mg PO DAILY [facility] Last Admin: 07/25/20 10:28 Dose: 81 mg Documented by: Atorvastatin Calcium (Atorvastatin 80 Mg Tab) 80 mg PO HS [facility] Last Admin: 07/25/20 22:44 Dose: 80 mg Documented by: Budesonide/Formoterol Fumarate (Symbicort 160-4.5 Mcg Inhaler) 2 puff INHALATION RT-BID PRN PRN Reason: Shortness Of Breath Last Admin: 07/25/20 19:24 Dose: 2 puff Documented by: Calcium Polycarbophil (Calcium Polycarbophil 625 Mg Tab) 625 mg PO TID [facility] Last Admin: 07/25/20 22:50 Dose: 625 mg Documented by: Carvedilol (Carvedilol 3.125 Mg Tab) 3.125 mg PO BID [facility] Last Admin: 07/25/20 22:45 Dose: 3.125 mg Documented by: Clopidogrel Bisulfate (Clopidogrel 75 Mg Tab) 75 mg PO DAILY [facility] Last Admin: 07/25/20 10:28 Dose: 75 mg Documented by: Diphenoxylate HCl/Atropine (Diphenox-Atrop 2.5-0.025 Mg 1 Each Tab) 1 each PO TID [facility] Last Admin: 07/25/20 23:01 Dose: 1 each Documented by: Finasteride (Finasteride 5 Mg Tab) 5 mg PO DAILY [facility] Last Admin: 07/25/20 10:28 Dose: 5 mg Documented by: Heparin Sodium (Porcine) (Heparin Sodium,Porcine 5,000 Unit/Ml 1 Ml Vial) 5,000 unit SQ Q12HR [facility] Last Admin: 07/25/20 22:44 Dose: 5,000 unit Documented by: Piperacillin Sod/Tazobactam (Sod 3.375 gm/ Sodium Chloride) 100 mls @ 25 mls/hr IVPB Q8HR [facility] Last Admin: 07/26/20 00:51 Dose: 25 mls/hr Documented by: Sodium Chloride (Saline 0.9%) 1,000 mls @ 50 mls/hr IV .Q20H [facility] Last Admin: 07/26/20 00:53 Dose: 50 mls/hr Documented by: Insulin Aspart (Insulin Aspart (Novolog) 100 Unit/Ml Vial) 0 unit SQ ACHS [facility]; Protocol Last Admin: 07/25/20 22:45 Dose: 6 unit Documented by: Metformin HCl (Metformin 500 Mg Tab) 1,000 mg PO AC-BID [facility] Last Admin: 07/25/20 22:44 Dose: 1,000 mg Documented by: Montelukast Sodium (Montelukast 10 Mg Tab) 10 mg PO DAILY [facility] Last Admin: 07/25/20 10:28 Dose: 10 mg Documented by: Morphine Sulfate (Morphine Sulfate 4 Mg/Ml Syringe) 4 mg IVP Q4HR PRN PRN Reason: Pain Last Admin: 07/25/20 22:45 Dose: 4 mg Documented by: Nitroglycerin (Nitroglycerin Sl Tabs 0.4 Mg Tab) 0.4 mg SUBLINGUAL Q5M PRN PRN Reason: Chest Pain Ondansetron HCl (Ondansetron 4 Mg Tab) 4 mg PO Q8H PRN PRN Reason: Nausea And Vomiting Pantoprazole Sodium (Pantoprazole 40 Mg Tablet) 40 mg PO DAILY@0730 [facility] Last Admin: 07/25/20 10:28 Dose: 40 mg Documented by: Prednisone (Prednisone 10 Mg Tab) 10 mg PO DAILY [facility] Last Admin: 07/25/20 10:28 Dose: 10 mg Documented by: Objective - Vital Signs Vital signs: Vital Signs Temp 97.8 F 07/25/20 04:49 Pulse 82 07/25/20 04:49 Resp 19 07/25/20 04:49 BP 114/74 07/25/20 04:49 Pulse Ox 94 L 07/25/20 04:49 Intake & Output 07/24/20 07/25/20 07/25/20 18:59 06:59 18:59 Intake Total 700 Balance 700 Weight 98.43 kg Intake: Intake, IV Titration 700 Amount Sodium Chloride 0.9% 1, 350 000 ml @ 100 mls/hr IV . Q10H ONE Rx#:[id number] Sodium Chloride 0.9% 1, 350 000 ml @ 100 mls/hr IV . Q10H [facility] Rx#:[id number] Other: Voiding Method Urinal Urinal # Voids 2 - Exam GENERAL: The patient is alert and oriented x3, not in any acute distress. Well developed, well nourished. HEENT: Pupils are round and equally reacting to light. EOMI. No scleral icterus. No conjunctival pallor. Normocephalic, atraumatic. No pharyngeal erythema. No thyromegaly. CARDIOVASCULAR: S1 and S2 present. No murmurs, rubs, or gallops. PULMONARY: Chest is clear to auscultation, no wheezing or crackles. -ABDOMEN: Soft, nontender, nondistended, normoactive bowel sounds. No palpable organomegaly. Colostomy bag is in place currently, with a large surrounding area of cellulitis, surgical wound dehiscence with some discharge Maceration of skin around colostomy bag. MUSCULOSKELETAL: No joint swelling or deformity. EXTREMITIES: No cyanosis, clubbing, or pedal edema. NEUROLOGICAL: Gross neurological examination did not reveal any focal deficits. SKIN: No rashes. No petechiae - Labs CBC & Chem 7: 07/25/20 12:04 07/25/20 12:04 Labs: Abnormal Lab Results - Last 24 Hours (Table) 07/24/20 07/24/20 07/25/20 Range/Units 17:17 20:15 07:41 POC Glucose (mg/dL) 343 H 379 H 220 H (75-99) mg/dL 07/25/20 Range/Units 11:56 POC Glucose (mg/dL) 322 H (75-99) mg/dL Assessment and Plan Assessment: ASSESSMENT Malfunction of the colostomy with surrounding skin maceration and cellulitis Pericolostomy Abdominal wall cellulitis and serous discharge, rule out fistula Recent history of Hospital-acquired left lower lobe pneumonia, aspiration pneumonia has been ruled out Recent history of non-STEMI, status post cardiac cath and stent placement to the LAD Recent surgical abdominal wound dehiscence and infection Diabetes mellitus with hyperglycemia COPD with no acute exacerbation Recent history of Colonic stricture secondary to Crohn's disease status post subtotal colectomy and ileostomy formation Hyperlipidemia Hypertension Transient hypotensive, improved with fluids and steroids History of CVA/TIA with some residual blood test Hearing difficulty Chronic back pain Leukocytosis secondary to steroid effect and reactive from surgery vs cellulitis PLAN: Patient to be continued on Zosyn for possible cellulitis around the colostomy site. Surgical team has been consulted and following the patient. We will consult colostomy nurse. Patient has been restarted on home medications which will be continued. Continue with the current medication regimen and further recommendations depending on the progress of the patient.
[2020-07-26 07:14] LABS: Basophils # (A) 0.1 k/uL (0-0.2); Basophils % (A) 0 %; Eosinophils # (A) 0.4 k/uL (0-0.7); Eosinophils % (A) 1 %; HCT 37.1 % (39.0-53.0); HGB 11.7 gm/dL (13.0-17.5); Hypochromasia Moderate; Lymphocytes % (A) 8 %; MCHC 31.4 g/dL (31.0-37.0); MCV 95.5 fL (80.0-100.0); Mean Platelet Volume 7.5; Monocytes # (A) 1.5 k/uL (0-1.0); Monocytes % (A) 6 %; Neutrophils # (A) 21.8 k/uL (1.3-7.7); Neutrophils % (A) 84 %; Platelet Count 311 k/uL (150-450); RBC 3.89 m/uL (4.30-5.90); RDW 15.6 % (11.5-15.5); WBC 25.9 k/uL (3.8-10.6)
[2020-07-26] MEDS: SYMBICORT 160-4.5 MCG INHALER INHALATION PRN ×2 (07:19→20:44)
[2020-07-26 07:40] LABS: Glucose,Whole Blood 171 mg/dL (75-99)
[2020-07-26] MEDS: INSULIN ASPART (NovoLOG) 100 UNIT/ML VIAL SQ SCH ×4 (10:22→21:17)
[2020-07-26] MEDS: MONTELUKAST 10 MG TAB PO SCH (10:23)
[2020-07-26] MEDS: metFORMIN 500 MG TAB PO SCH ×2 (10:23→17:49)
[2020-07-26] MEDS: predniSONE 10 MG TAB PO SCH (10:23)
[2020-07-26] MEDS: PANTOPRAZOLE 40 MG TABLET PO SCH (10:23)
[2020-07-26] MEDS: FINASTERIDE 5 MG TAB PO SCH (10:23)
[2020-07-26] MEDS: ASPIRIN 81 MG PO SCH (10:24)
[2020-07-26] MEDS: DIPHENOX-ATROP 2.5-0.025 MG 1 EACH TAB PO SCH ×3 (10:24→21:16)
[2020-07-26] MEDS: CLOPIDOGREL 75 MG TAB PO SCH (10:24)
[2020-07-26] MEDS: HEPARIN SODIUM,PORCINE 5,000 UNIT/ML 1 ML VIAL SQ SCH ×2 (10:26→21:17)
[2020-07-26] MEDS: carvediloL 3.125 MG TAB PO SCH ×2 (10:31→21:17)
[2020-07-26 10:44] LABS: African American GFR (CKD) 107.1 (60.0-200.0); Anion Gap 10.3 mmol/L (4.00-12.00); BUN/Creat Ratio 23.75 Ratio (12.00-20.00); Calcium 8.5 mg/dL (8.7-10.3); Carbon Dioxide 21.7 mmol/L (21.6-31.8); Non-African American GFR(CKD) 92.4 (60.0-200.0); Potassium 4.5 mmol/L (3.5-5.5)
[2020-07-26 11:35] LABS: Glucose,Whole Blood 256 mg/dL (75-99)
--- NOTE | 2020-07-26 12:05 | P.PN ---
Subjective Progress Note Date: 07/26/20 Principal diagnosis: Cellulitis around the colostomy site Mr. Betancourt is a 69-year-old male with a past medical history of asthma, CVA/TIA, diabetes mellitus, urine disorder, hypertension, hyperlipidemia, chronic low back pain, Crohn's disease steroid-dependent coming into the hospital today for leakage from the colostomy bag. Patient was recently discharged from surgical service for colonic stricture secondary to Crohn's disease, he underwent subtotal colectomy and ileostomy. He was then admitted back to the hospital for NSTEMI and abdominal wound dehiscence around the colostomy bag. The patient was treated with Zosyn and discharged on a course of oral antibiotic to rehab. But he presents with the same complaint of colostomy bag being exploding and having drainage all around the colostomy with excoriation of the skin around it. The patient is lying comfortably in bed and states that he still has pain and itching around the colostomy bag. As per the nursing staff report that has been continuous leakage from the colostomy with excoriation of the skin colostomy site. On reviewing the vitals temperature 98.1 heart rate 75 respiratory rate 16, saturating 94% on room air with blood pressure 109/72. On reviewing the patient's labs white count of 18.8 hemoglobin 11.8 platelets 310. Sodium 131, potassium 4.5, chloride 107 bicarb 20, BUN 22, creatinine 0.93. He is being continued upon antibiotics in the form of Zosyn. On 07/26/2020- patient is lying in bed appears to be no acute distress. He is getting his dressings changed over his colostomy site. The skin around the colostomy site looks pink and macerated with inflammation. Patient states that it is very painful that he has to hold his breath while changing the dressing. Patient denies having fevers chills or rigors. No chest pain or palpitations. No cough or difficulty breathing. No abdominal pain nausea vomiting or diarrhea. No dysuria or hematuria. On reviewing the vitals patient has been afebrile for the past 24 hours. Heart rate around 80s- 90s, blood pressure 115/81, saturating at 96% on room air. Patient's labs from this morning show white count of 25.9, hemoglobin 11.7, platelets 311. Sodium 136, potassium 4.5, chloride 104, bicarb 21, BUN 19 and creatinine of 0.8. Blood sugars have been running around 200s to 250s. Active Medications Generic Name Dose Route Start Last Admin Trade Name Freq PRN Reason Stop Dose Admin Acetaminophen 650 mg 07/24/20 07:59 Acetaminophen Tab 325 Mg Tab PO Q6H PRN Fever and/ or Pain Aspirin 81 mg 07/24/20 09:00 07/26/20 10:24 Aspirin 81 Mg PO 81 mg DAILY JOHN Administration Atorvastatin Calcium 80 mg 07/24/20 21:00 07/25/20 22:44 Atorvastatin 80 Mg Tab PO 80 mg HS JOHN Administration Budesonide/Formoterol Fumarate 2 puff 07/24/20 07:59 07/26/20 07:19 Symbicort 160-4.5 Mcg Inhaler INHALATION 2 puff RT-BID PRN Administration Shortness Of Breath Calcium Polycarbophil 625 mg 07/24/20 09:00 07/26/20 10:24 Calcium Polycarbophil 625 Mg Tab PO 625 mg TID JOHN Administration Carvedilol 3.125 mg 07/24/20 09:00 07/26/20 10:31 Carvedilol 3.125 Mg Tab PO 3.125 mg BID JOHN Administration Clopidogrel Bisulfate 75 mg 07/24/20 09:00 07/26/20 10:24 Clopidogrel 75 Mg Tab PO 75 mg DAILY JOHN Administration Diphenoxylate HCl/Atropine 1 each 07/24/20 09:00 07/26/20 10:24 Diphenox-Atrop 2.5-0.025 Mg 1 Each Tab PO 1 each TID JOHN Administration Finasteride 5 mg 07/24/20 09:00 07/26/20 10:23 Finasteride 5 Mg Tab PO 5 mg DAILY JOHN Administration Heparin Sodium (Porcine) 5,000 unit 07/24/20 09:00 07/26/20 10:26 Heparin Sodium,Porcine 5,000 Unit/Ml 1 Ml Vial SQ 5,000 unit Q12HR JOHN Administration Piperacillin Sod/Tazobactam 100 mls @ 25 mls/hr 07/24/20 08:00 07/26/20 10:24 Sod 3.375 gm/ Sodium Chloride IVPB 25 mls/hr Q8HR JOHN Administration Sodium Chloride 1,000 mls @ 50 mls/hr 07/24/20 08:00 07/26/20 00:53 Saline 0.9% IV 50 mls/hr .Q20H JOHN Administration Insulin Aspart 0 unit 07/24/20 21:00 07/26/20 10:22 Insulin Aspart (Novolog) 100 Unit/Ml Vial SQ 2 unit ACHS JOHN Administration Protocol Metformin HCl 1,000 mg 07/25/20 17:30 07/26/20 10:23 Metformin 500 Mg Tab PO 1,000 mg AC-BID JOHN Administration Montelukast Sodium 10 mg 07/24/20 09:00 07/26/20 10:23 Montelukast 10 Mg Tab PO 10 mg DAILY JOHN Administration Morphine Sulfate 4 mg 07/24/20 01:26 07/25/20 22:45 Morphine Sulfate 4 Mg/Ml Syringe IVP 4 mg Q4HR PRN Administration Pain Nitroglycerin 0.4 mg 07/24/20 07:59 Nitroglycerin Sl Tabs 0.4 Mg Tab SUBLINGUAL Q5M PRN Chest Pain Ondansetron HCl 4 mg 07/24/20 07:59 Ondansetron 4 Mg Tab PO Q8H PRN Nausea And Vomiting Pantoprazole Sodium 40 mg 07/24/20 09:00 07/26/20 10:23 Pantoprazole 40 Mg Tablet PO 40 mg DAILY@0730 JOHN Administration Prednisone 10 mg 07/24/20 09:00 07/26/20 10:23 Prednisone 10 Mg Tab PO 10 mg DAILY JOHN Administration Objective - Vital Signs Vital signs: Vital Signs Temp 98.4 F 07/26/20 04:46 Pulse 87 07/26/20 11:25 Resp 18 07/26/20 11:25 BP 115/81 07/26/20 11:25 Pulse Ox 96 07/26/20 11:25 Intake & Output 07/25/20 07/26/20 07/26/20 19:59 06:59 18:59 Intake Total Output Total 200 Balance -200 Intake: Intake, IV Titration Amount Piperacillin-Tazobactam 3 .375 gm In Sodium Chloride 0.9% 100 ml @ 25 mls/hr IVPB Q8HR [facility] Rx# :[id number] Sodium Chloride 0.9% 1, 000 ml @ 50 mls/hr IV . Q20H [facility] Rx#:[id number] Oral Output: Urine 200 Other: Voiding Method Urinal # Voids 1 # Bowel Movements - Exam GENERAL: The patient is alert and oriented x3, not in any acute distress. Well developed, well nourished. HEENT: Pupils are round and equally reacting to light. EOMI. No scleral icterus. No conjunctival pallor. Normocephalic, atraumatic. No pharyngeal erythema. No thyromegaly. CARDIOVASCULAR: S1 and S2 present. No murmurs, rubs, or gallops. PULMONARY: Chest is clear to auscultation, no wheezing or crackles. -ABDOMEN: Soft, nontender, nondistended, normoactive bowel sounds. No palpable organomegaly. Colostomy bag is in place currently, with a large surrounding area of cellulitis, surgical wound dehiscence with some discharge Maceration of skin around colostomy bag. The area of redness has been marked. MUSCULOSKELETAL: No joint swelling or deformity. EXTREMITIES: No cyanosis, clubbing, or pedal edema. NEUROLOGICAL: Gross neurological examination did not reveal any focal deficits. SKIN: No rashes. No petechiae - Labs CBC & Chem 7: 07/26/20 06:33 07/26/20 06:33 Labs: Abnormal Lab Results - Last 24 Hours (Table) 07/25/20 07/25/20 07/26/20 Range/Units 17:21 20:21 06:33 WBC 25.9 H (3.8-10.6) k/uL RBC 3.89 L (4.30-5.90) m/uL Hgb 11.7 L (13.0-17.5) gm/dL Hct 37.1 L (39.0-53.0) % RDW 15.6 H (11.5-15.5) % Neutrophils # 21.8 H (1.3-7.7) k/uL Monocytes # 1.5 H (0-1.0) k/uL BUN/Creatinine Ratio (12.00-20.00) Ratio Glucose (70-110) mg/dL POC Glucose (mg/dL) 340 H 327 H (75-99) mg/dL Calcium (8.7-10.3) mg/dL 07/26/20 07/26/20 07/26/20 Range/Units 06:33 07:31 11:27 WBC (3.8-10.6) k/uL RBC (4.30-5.90) m/uL Hgb (13.0-17.5) gm/dL Hct (39.0-53.0) % RDW (11.5-15.5) % Neutrophils # (1.3-7.7) k/uL Monocytes # (0-1.0) k/uL BUN/Creatinine Ratio 23.75 H (12.00-20.00) Ratio Glucose 188 H (70-110) mg/dL POC Glucose (mg/dL) 171 H 256 H (75-99) mg/dL Calcium 8.5 L (8.7-10.3) mg/dL Assessment and Plan Assessment: ASSESSMENT Malfunction of the colostomy with surrounding skin maceration and cellulitis Pericolostomy Abdominal wall cellulitis and serous discharge, rule out fistula Recent history of Hospital-acquired left lower lobe pneumonia, aspiration pneumonia has been ruled out Recent history of non-STEMI, status post cardiac cath and stent placement to the LAD Recent surgical abdominal wound dehiscence and infection Diabetes mellitus with hyperglycemia COPD with no acute exacerbation Recent history of Colonic stricture secondary to Crohn's disease status post subtotal colectomy and ileostomy formation Hyperlipidemia Hypertension Transient hypotensive, improved with fluids and steroids History of CVA/TIA with some residual blood test Hearing difficulty Chronic back pain Leukocytosis secondary to steroid effect and reactive from surgery vs cellulitis PLAN: Patient to be continued on Zosyn for cellulitis around the colostomy site. Surgical team has been consulted and following the patient, probably plans of taking him to the OR on Monday to rule out any fistula. Will consult colostomy nurse. Patient has been restarted on home medications which will be continued. Continue with the current medication regimen and further recommendations depending on the progress of the patient.
[2020-07-26] MEDS: MORPHINE SULFATE 4 MG/ML SYRINGE IVP PRN ×2 (13:32→21:17)
--- NOTE | 2020-07-26 14:34 | P.PN ---
Subjective Progress Note Date: 07/26/20 patient doing well no complaints Objective - Vital Signs Vital signs: Vital Signs Temp 98.4 F 07/26/20 04:46 Pulse 87 07/26/20 11:25 Resp 18 07/26/20 11:25 BP 115/81 07/26/20 11:25 Pulse Ox 96 07/26/20 11:25 Intake & Output 07/25/20 07/26/20 07/26/20 19:59 06:59 18:59 Intake Total 500 Output Total 200 Balance 300 Intake: Intake, IV Titration 500 Amount Piperacillin-Tazobactam 3 100 .375 gm In Sodium Chloride 0.9% 100 ml @ 25 mls/hr IVPB Q8HR [facility] Rx# :[id number] Sodium Chloride 0.9% 1, 400 000 ml @ 50 mls/hr IV . Q20H [facility] Rx#:[id number] Oral Output: Urine 200 Other: Voiding Method Urinal # Voids 1 # Bowel Movements - Constitutional General appearance: Present: cooperative - Respiratory Details: nonlabored - Cardiovascular Rhythm: regular - Gastrointestinal Gastrointestinal Comment(s): ostomy intact with liquid stool - Integumentary Integumentary Comment(s): Cellulitis surrounding ostomy - Labs CBC & Chem 7: 07/26/20 06:33 07/26/20 06:33 Labs: Abnormal Lab Results - Last 24 Hours (Table) 07/25/20 07/25/20 07/26/20 Range/Units 17:21 20:21 06:33 WBC 25.9 H (3.8-10.6) k/uL RBC 3.89 L (4.30-5.90) m/uL Hgb 11.7 L (13.0-17.5) gm/dL Hct 37.1 L (39.0-53.0) % RDW 15.6 H (11.5-15.5) % Neutrophils # 21.8 H (1.3-7.7) k/uL Monocytes # 1.5 H (0-1.0) k/uL BUN/Creatinine Ratio (12.00-20.00) Ratio Glucose (70-110) mg/dL POC Glucose (mg/dL) 340 H 327 H (75-99) mg/dL Calcium (8.7-10.3) mg/dL 07/26/20 07/26/20 07/26/20 Range/Units 06:33 07:31 11:27 WBC (3.8-10.6) k/uL RBC (4.30-5.90) m/uL Hgb (13.0-17.5) gm/dL Hct (39.0-53.0) % RDW (11.5-15.5) % Neutrophils # (1.3-7.7) k/uL Monocytes # (0-1.0) k/uL BUN/Creatinine Ratio 23.75 H (12.00-20.00) Ratio Glucose 188 H (70-110) mg/dL POC Glucose (mg/dL) 171 H 256 H (75-99) mg/dL Calcium 8.5 L (8.7-10.3) mg/dL Assessment and Plan Assessment: skin cellulitis secondary to osotomy Plan: continue with local wound care
[2020-07-26 17:07] LABS: Glucose,Whole Blood 223 mg/dL (75-99)
[2020-07-26 20:25] LABS: Glucose,Whole Blood 282 mg/dL (75-99)
[2020-07-26] MEDS: ATORVASTATIN 80 MG TAB PO SCH (21:17)
[2020-07-27] MEDS: PIPERACILLIN-TAZOBACTAM 3.375 GM in SODIUM CHLORIDE 0.9% 100 ML IVPB SCH ×4 (00:24→23:59)
[2020-07-27] MEDS: MORPHINE SULFATE 4 MG/ML SYRINGE IVP PRN (03:34)
[2020-07-27 06:12] LABS: Basophils # (A) 0.1 k/uL (0-0.2); Basophils % (A) 1 %; Eosinophils # (A) 0.3 k/uL (0-0.7); Eosinophils % (A) 1 %; HCT 39.1 % (39.0-53.0); HGB 11.7 gm/dL (13.0-17.5); Hypochromasia Marked; Lymphocytes # (A) 2.4 k/uL (1.0-4.8); Lymphocytes % (A) 9 %; MCH 29.2 pg (25.0-35.0); MCV 97.4 fL (80.0-100.0); Mean Platelet Volume 7.5; Monocytes # (A) 1.4 k/uL (0-1.0); Monocytes % (A) 6 %; Neutrophils # (A) 21.9 k/uL (1.3-7.7); Neutrophils % (A) 83 %; Platelet Count 279 k/uL (150-450); RBC 4.02 m/uL (4.30-5.90); RDW 15.7 % (11.5-15.5); WBC 26.4 k/uL (3.8-10.6)
[2020-07-27] MEDS: SYMBICORT 160-4.5 MCG INHALER INHALATION PRN (07:06)
[2020-07-27 07:25] LABS: Glucose,Whole Blood 147 mg/dL (75-99)
[2020-07-27] MEDS: INSULIN ASPART (NovoLOG) 100 UNIT/ML VIAL SQ SCH ×4 (07:55→20:58)
[2020-07-27 09:11] LABS: African American GFR (CKD) 107.1 (60.0-200.0); Anion Gap 8.1 mmol/L (4.00-12.00); BUN/Creat Ratio 21.25 Ratio (12.00-20.00); Calcium 8.8 mg/dL (8.7-10.3); Carbon Dioxide 24.9 mmol/L (21.6-31.8); Non-African American GFR(CKD) 92.4 (60.0-200.0); Potassium 4.6 mmol/L (3.5-5.5)
[2020-07-27] MEDS: metFORMIN 500 MG TAB PO SCH ×2 (11:39→18:00)
[2020-07-27] MEDS: DIPHENOX-ATROP 2.5-0.025 MG 1 EACH TAB PO SCH ×3 (11:39→22:15)
[2020-07-27 12:05] LABS: Glucose,Whole Blood 172 mg/dL (75-99)
[2020-07-27] MEDS: ASPIRIN 81 MG PO SCH (14:19)
[2020-07-27] MEDS: FINASTERIDE 5 MG TAB PO SCH (14:19)
[2020-07-27] MEDS: PANTOPRAZOLE 40 MG TABLET PO SCH (14:19)
[2020-07-27] MEDS: carvediloL 3.125 MG TAB PO SCH ×2 (14:19→14:20)
[2020-07-27] MEDS: HEPARIN SODIUM,PORCINE 5,000 UNIT/ML 1 ML VIAL SQ SCH ×2 (14:20→20:58)
[2020-07-27] MEDS: predniSONE 10 MG TAB PO SCH (14:20)
[2020-07-27] MEDS: CLOPIDOGREL 75 MG TAB PO SCH (14:20)
[2020-07-27] MEDS: MONTELUKAST 10 MG TAB PO SCH (14:20)
--- NOTE | 2020-07-27 14:23 | P.PN ---
Subjective Progress Note Date: 07/27/20 Principal diagnosis: Crohn's disease, chemical dermatitis The patient is a 69-year-old man who in undergone a subtotal colectomy June 22 due to complicated Crohn's disease. The patient had been treated by gastroenterology at [facility] and followed up at [facility] gastroenterology due to long-standing Crohn's disease of colon. He had issues with colonic stricture and inability to perform colonoscopies. He had been treated with multiple medications including Biologics and steroids without significant improvement. Some of this prior biopsies were indeterminate for dysplasia. Gastroenterology at both facilities recommended a subtotal colectomy with ileostomy. The patient had complicated postoperative course. He was admitted July 07 with a non-Q-wave SD. He had some skin separation at that time. His ostomy output was watery and he subsequently developed difficulty with having the ostomy appliance adhered. He had been discharged to a rehab facility and develop significant skin inflammation from the watery output and difficulty keeping the skin dry. In been treated with Imodium which was switched to Lomotil on a schedule. Addition of oral codeine to decrease motility. And his fiber was increased. Since I saw him Monday he has had no improvement with having an ostomy appliance contain the output. There is also concerned Monday about a possible fistula developing alongside the ileostomy. Objective - Vital Signs Vital signs: Vital Signs Temp 98.3 F 07/27/20 13:00 Pulse 87 07/27/20 13:00 Resp 16 07/27/20 13:00 BP 108/80 07/27/20 13:00 Pulse Ox 94 L 07/27/20 13:00 Intake & Output 07/26/20 07/27/20 07/27/20 18:59 06:59 18:59 Intake Total 500 1150 Output Total 200 650 200 Balance 300 500 -200 Weight 98.43 kg Intake: Intake, IV Titration 500 150 Amount Piperacillin-Tazobactam 3 100 .375 gm In Sodium Chloride 0.9% 100 ml @ 25 mls/hr IVPB Q8HR [facility] Rx# :[id number] Sodium Chloride 0.9% 1, 400 150 000 ml @ 50 mls/hr IV . Q20H [facility] Rx#:[id number] Oral 1000 Output: Urine 200 650 200 Other: Voiding Method Urinal Urinal # Voids 1 1 1 - Constitutional General appearance: Present: cooperative, no acute distress - Gastrointestinal Gastrointestinal Comment(s): The wound is examined along with Paulina Almonte the wound care nurse. There is a small midline skin separation about 1.5 x 2 cm with good granulation tissue developing. There is significant chemical excoriation of the skin on the lower abdomen. The ileostomy itself is pink and viable. It has retracted since surgery. Along the medial aspect there is a 7 mm skin opening. This is probed and goes in about 1.5 cm. There is obvious small bowel effluent coming from that. I placed a finger into the ileostomy and it goes in about 3 cm. I do not feel a definite ulceration. - Labs CBC & Chem 7: 07/27/20 05:27 07/27/20 05:27 Labs: Abnormal Lab Results - Last 24 Hours (Table) 07/26/20 07/26/20 07/27/20 Range/Units 16:59 20:24 05:27 WBC 26.4 H (3.8-10.6) k/uL RBC 4.02 L (4.30-5.90) m/uL Hgb 11.7 L (13.0-17.5) gm/dL MCHC 30.0 L (31.0-37.0) g/dL RDW 15.7 H (11.5-15.5) % Neutrophils # 21.9 H (1.3-7.7) k/uL Monocytes # 1.4 H (0-1.0) k/uL BUN/Creatinine Ratio (12.00-20.00) Ratio Glucose (70-110) mg/dL POC Glucose (mg/dL) 223 H 282 H (75-99) mg/dL 07/27/20 07/27/20 07/27/20 Range/Units 05:27 07:18 11:32 WBC (3.8-10.6) k/uL RBC (4.30-5.90) m/uL Hgb (13.0-17.5) gm/dL MCHC (31.0-37.0) g/dL RDW (11.5-15.5) % Neutrophils # (1.3-7.7) k/uL Monocytes # (0-1.0) k/uL BUN/Creatinine Ratio 21.25 H (12.00-20.00) Ratio Glucose 159 H (70-110) mg/dL POC Glucose (mg/dL) 147 H 172 H (75-99) mg/dL Assessment and Plan (1) Ileostomy status Current Visit: Yes Status: Acute Code(s): Z93.2 - ILEOSTOMY STATUS SNOMED Code(s): 502148312 (2) Abdominal wall cellulitis Current Visit: No Status: Acute Code(s): L03.311 - CELLULITIS OF ABDOMINAL WALL SNOMED Code(s): 10834823 (3) Crohn's colitis Current Visit: No Status: Acute Code(s): K50.10 - CROHN'S DISEASE OF LARGE INTESTINE WITHOUT COMPLICATIONS SNOMED Code(s): 32246042 (4) Small bowel fistula Current Visit: Yes Status: Acute Code(s): K63.2 - FISTULA OF INTESTINE SNOMED Code(s): 054976027 Plan: With the current inflammation on his skin, and the ostomy appliance is going to be nearly impossible to adhere. Recommendations were made for using Triad skin cream and attempt at a ostomy appliance with a belt per wound care nurse. I discussed the case with gastroenterology. He did have complicated Crohn's which had been resistant to medical therapies including biologic some past. Recommendation would be for an ileoscopy to try to identify the source of the fistula make sure there is no significant ulceration which would need additional medical therapy. At this point to try to surgically repair of the fistula or move the ileostomy may result in similar wound complications. Patient was placed on bowel rest. Further recommendations to follow.
[2020-07-27] MEDS ORDERED: MAGNESIUM CITRATE 296 ML BOTTLE PO ONE (16:01)
[2020-07-27 17:28] LABS: Glucose,Whole Blood 171 mg/dL (75-99)
[2020-07-27] MEDS: HYDROPHILIC CREAM 180 GM TUBE TOPICAL SCH ×2 (17:59→22:15)
[2020-07-27] MEDS: SODIUM CHLORIDE 0.9% 1,000 ML IV SCH (18:00)
[2020-07-27 20:05] LABS: Glucose,Whole Blood 335 mg/dL (75-99)
[2020-07-27] MEDS: ATORVASTATIN 80 MG TAB PO SCH (20:57)
[2020-07-27] MEDS ORDERED: carvediloL 3.125 MG TAB PO ONE (21:00)
--- NOTE | 2020-07-28 01:01 | P.PN ---
Subjective Progress Note Date: 07/27/20 Principal diagnosis: Cellulitis around the colostomy site Mr. Betancourt is a 69-year-old male with a past medical history of asthma, CVA/TIA, diabetes mellitus, urine disorder, hypertension, hyperlipidemia, chronic low back pain, Crohn's disease steroid-dependent coming into the hospital today for leakage from the colostomy bag. Patient was recently discharged from surgical service for colonic stricture secondary to Crohn's disease, he underwent subtotal colectomy and ileostomy. He was then admitted back to the hospital for NSTEMI and abdominal wound dehiscence around the colostomy bag. The patient was treated with Zosyn and discharged on a course of oral antibiotic to rehab. But he presents with the same complaint of colostomy bag being exploding and having drainage all around the colostomy with excoriation of the skin around it. The patient is lying comfortably in bed and states that he still has pain and itching around the colostomy bag. As per the nursing staff report that has been continuous leakage from the colostomy with excoriation of the skin colostomy site. On reviewing the vitals temperature 98.1 heart rate 75 respiratory rate 16, saturating 94% on room air with blood pressure 109/72. On reviewing the patient's labs white count of 18.8 hemoglobin 11.8 platelets 310. Sodium 131, potassium 4.5, chloride 107 bicarb 20, BUN 22, creatinine 0.93. He is being continued upon antibiotics in the form of Zosyn. On 07/26/2020- patient is lying in bed appears to be no acute distress. He is getting his dressings changed over his colostomy site. The skin around the colostomy site looks pink and macerated with inflammation. Patient states that it is very painful that he has to hold his breath while changing the dressing. Patient denies having fevers chills or rigors. No chest pain or palpitations. No cough or difficulty breathing. No abdominal pain nausea vomiting or diarrhea. No dysuria or hematuria. On reviewing the vitals patient has been afebrile for the past 24 hours. Heart rate around 80s- 90s, blood pressure 115/81, saturating at 96% on room air. Patient's labs from this morning show white count of 25.9, hemoglobin 11.7, platelets 311. Sodium 136, potassium 4.5, chloride 104, bicarb 21, BUN 19 and creatinine of 0.8. Blood sugars have been running around 200s to 250s. On 07/27/2020 -patient lying in bed appears to be no acute distress. No acute events reported by nursing staff. Patient still continues to have leakage around his colostomy with maceration of surrounding skin. Patient denies having any chest pain or palpitations. No cough or difficulty breathing. No marked nausea vomiting or diarrhea. No dysuria or hematuria. On reviewing his vitals T-max of 98.3, heart rate 87, respiratory 16, blood pressure 108 x 80, saturating at 94% on room ranges labs white count of 26.4, hemoglobin 9.7, platelets 279. Sodium 137, potassium 4.6, BUN 17, creatinine 0.8. Active Medications Acetaminophen (Acetaminophen Tab 325 Mg Tab) 650 mg PO Q6H PRN PRN Reason: Fever and/ or Pain Aspirin (Aspirin 81 Mg) 81 mg PO DAILY [facility] Last Admin: 07/27/20 14:19 Dose: 81 mg Documented by: Atorvastatin Calcium (Atorvastatin 80 Mg Tab) 80 mg PO HS [facility] Last Admin: 07/27/20 20:57 Dose: 80 mg Documented by: Budesonide/Formoterol Fumarate (Symbicort 160-4.5 Mcg Inhaler) 2 puff INHALATION RT-BID PRN PRN Reason: Shortness Of Breath Last Admin: 07/27/20 07:06 Dose: 2 puff Documented by: Carvedilol (Carvedilol 3.125 Mg Tab) 3.125 mg PO BID [facility] Last Admin: 07/27/20 14:20 Dose: Not Given Documented by: Clopidogrel Bisulfate (Clopidogrel 75 Mg Tab) 75 mg PO DAILY [facility] Last Admin: 07/27/20 14:20 Dose: 75 mg Documented by: Diphenoxylate HCl/Atropine (Diphenox-Atrop 2.5-0.025 Mg 1 Each Tab) 1 each PO TID [facility] Last Admin: 07/27/20 22:15 Dose: Not Given Documented by: Finasteride (Finasteride 5 Mg Tab) 5 mg PO DAILY [facility] Last Admin: 07/27/20 14:19 Dose: 5 mg Documented by: Heparin Sodium (Porcine) (Heparin Sodium,Porcine 5,000 Unit/Ml 1 Ml Vial) 5,000 unit SQ Q12HR [facility] Last Admin: 11/02/20 20:58 Dose: 5,000 unit Documented by: Piperacillin Sod/Tazobactam (Sod 3.375 gm/ Sodium Chloride) 100 mls @ 25 mls/hr IVPB Q8HR [facility] Last Admin: 07/27/20 23:59 Dose: 25 mls/hr Documented by: Sodium Chloride (Saline 0.9%) 1,000 mls @ 50 mls/hr IV .Q20H [facility] Last Admin: 07/27/20 18:00 Dose: Not Given Documented by: Insulin Aspart (Insulin Aspart (Novolog) 100 Unit/Ml Vial) 0 unit SQ ACHS [facility]; Protocol Last Admin: 07/27/20 20:58 Dose: 6 unit Documented by: Metformin HCl (Metformin 500 Mg Tab) 1,000 mg PO AC-BID [facility] Last Admin: 07/27/20 18:00 Dose: 1,000 mg Documented by: Montelukast Sodium (Montelukast 10 Mg Tab) 10 mg PO DAILY [facility] Last Admin: 07/27/20 14:20 Dose: 10 mg Documented by: Morphine Sulfate (Morphine Sulfate 4 Mg/Ml Syringe) 4 mg IVP Q4HR PRN PRN Reason: Pain Last Admin: 07/27/20 03:34 Dose: 4 mg Documented by: Multi-Ingred Cream/Lotion/Oil/Oint (Hydrophilic Cream 180 Gm Tube) 1 applic TOPICAL TID [facility] Last Admin: 07/27/20 22:15 Dose: 1 applic Documented by: Nitroglycerin (Nitroglycerin Sl Tabs 0.4 Mg Tab) 0.4 mg SUBLINGUAL Q5M PRN PRN Reason: Chest Pain Ondansetron HCl (Ondansetron 4 Mg Tab) 4 mg PO Q8H PRN PRN Reason: Nausea And Vomiting Last Admin: 07/27/20 21:05 Dose: 4 mg Documented by: Pantoprazole Sodium (Pantoprazole 40 Mg Tablet) 40 mg PO DAILY@0730 [facility] Last Admin: 07/27/20 14:19 Dose: 40 mg Documented by: Prednisone (Prednisone 10 Mg Tab) 10 mg PO DAILY [facility] Last Admin: 07/27/20 14:20 Dose: 10 mg Documented by: Objective - Vital Signs Vital signs: Vital Signs Temp 98.8 F 07/27/20 04:34 Pulse 94 07/27/20 04:34 Resp 17 07/27/20 04:34 BP 116/76 07/27/20 04:34 Pulse Ox 96 07/27/20 04:34 Intake & Output 07/26/20 07/27/20 07/27/20 18:59 06:59 18:59 Intake Total 500 1150 Output Total 200 650 200 Balance 300 500 -200 Intake: Intake, IV Titration 500 150 Amount Piperacillin-Tazobactam 3 100 .375 gm In Sodium Chloride 0.9% 100 ml @ 25 mls/hr IVPB Q8HR JOHN Rx# :[id number] Sodium Chloride 0.9% 1, 400 150 000 ml @ 50 mls/hr IV . Q20H JOHN Rx#:[id number] Oral 1000 Output: Urine 200 650 200 Other: Voiding Method Urinal Urinal # Voids 1 1 1 - Exam GENERAL: The patient is alert and oriented x3, not in any acute distress. Well developed, well nourished. HEENT: Pupils are round and equally reacting to light. EOMI. No scleral icterus. No conjunctival pallor. CARDIOVASCULAR: S1 and S2 present. No murmurs, rubs, or gallops. PULMONARY: Chest is clear to auscultation, no wheezing or crackles. -ABDOMEN: Soft, nontender, nondistended, normoactive bowel sounds. No palpable organomegaly. Colostomy bag is in place currently, with a large surrounding area of cellulitis, surgical wound dehiscence with some discharge Maceration of skin around colostomy bag. The area of redness has been marked. MUSCULOSKELETAL: No joint swelling or deformity. EXTREMITIES: No cyanosis, clubbing, or pedal edema. NEUROLOGICAL: Gross neurological examination did not reveal any focal deficits. - Labs CBC & Chem 7: 07/27/20 05:27 07/27/20 05:27 Labs: Abnormal Lab Results - Last 24 Hours (Table) 07/26/20 07/26/20 07/26/20 Range/Units 11:27 16:59 20:24 WBC (3.8-10.6) k/uL RBC (4.30-5.90) m/uL Hgb (13.0-17.5) gm/dL MCHC (31.0-37.0) g/dL RDW (11.5-15.5) % Neutrophils # (1.3-7.7) k/uL Monocytes # (0-1.0) k/uL BUN/Creatinine Ratio (12.00-20.00) Ratio Glucose (70-110) mg/dL POC Glucose (mg/dL) 256 H 223 H 282 H (75-99) mg/dL 07/27/20 07/27/20 07/27/20 Range/Units 05:27 05:27 07:18 WBC 26.4 H (3.8-10.6) k/uL RBC 4.02 L (4.30-5.90) m/uL Hgb 11.7 L (13.0-17.5) gm/dL MCHC 30.0 L (31.0-37.0) g/dL RDW 15.7 H (11.5-15.5) % Neutrophils # 21.9 H (1.3-7.7) k/uL Monocytes # 1.4 H (0-1.0) k/uL BUN/Creatinine Ratio 21.25 H (12.00-20.00) Ratio Glucose 159 H (70-110) mg/dL POC Glucose (mg/dL) 147 H (75-99) mg/dL Assessment and Plan Assessment: ASSESSMENT Malfunction of the colostomy with surrounding skin maceration and cellulitis Pericolostomy Abdominal wall cellulitis and serous discharge, rule out fistula Recent history of Hospital-acquired left lower lobe pneumonia, aspiration pneumonia has been ruled out Recent history of non-STEMI, status post cardiac cath and stent placement to the LAD Recent surgical abdominal wound dehiscence and infection Diabetes mellitus with hyperglycemia COPD with no acute exacerbation Recent history of Colonic stricture secondary to Crohn's disease status post subtotal colectomy and ileostomy formation Hyperlipidemia Hypertension Transient hypotensive, improved with fluids and steroids History of CVA/TIA with some residual blood test Hearing difficulty Chronic back pain Leukocytosis secondary to steroid effect and reactive from surgery vs cellulitis PLAN: Patient to be continued on Zosyn for cellulitis around the colostomy site. Surgical team has been consulted and following the patient, probably plans of taking him to the OR , to rule out any fistula.Continue with the current medication regimen and further recommendations depending on the progress of the patient.
[2020-07-28 06:32] LABS: Basophils # (A) 0.1 k/uL (0-0.2); Basophils % (A) 0 %; Eosinophils # (A) 0.2 k/uL (0-0.7); Eosinophils % (A) 1 %; HCT 39.2 % (39.0-53.0); HGB 12.1 gm/dL (13.0-17.5); Hypochromasia Slight; Lymphocytes # (A) 2.3 k/uL (1.0-4.8); Lymphocytes % (A) 9 %; MCH 29.3 pg (25.0-35.0); MCHC 30.8 g/dL (31.0-37.0); MCV 95.3 fL (80.0-100.0); Mean Platelet Volume 7.3; Monocytes # (A) 1.2 k/uL (0-1.0); Monocytes % (A) 4 %; Neutrophils # (A) 22.3 k/uL (1.3-7.7); Neutrophils % (A) 85 %; Platelet Count 304 k/uL (150-450); RBC 4.11 m/uL (4.30-5.90); RDW 15.9 % (11.5-15.5); WBC 26.2 k/uL (3.8-10.6)
[2020-07-28] MEDS: SYMBICORT 160-4.5 MCG INHALER INHALATION PRN ×2 (07:15→19:49)
[2020-07-28 07:18] LABS: Glucose,Whole Blood 125 mg/dL (75-99)
[2020-07-28] MEDS: INSULIN ASPART (NovoLOG) 100 UNIT/ML VIAL SQ SCH ×4 (07:19→21:17)
[2020-07-28] MEDS: ASPIRIN 81 MG PO SCH (08:11)
[2020-07-28] MEDS: CLOPIDOGREL 75 MG TAB PO SCH (08:11)
[2020-07-28] MEDS: HEPARIN SODIUM,PORCINE 5,000 UNIT/ML 1 ML VIAL SQ SCH ×2 (08:12→21:17)
[2020-07-28] MEDS: metFORMIN 500 MG TAB PO SCH ×2 (08:12→16:47)
[2020-07-28] MEDS: carvediloL 3.125 MG TAB PO SCH ×2 (08:13→21:17)
[2020-07-28] MEDS: predniSONE 10 MG TAB PO SCH (08:14)
[2020-07-28] MEDS: PIPERACILLIN-TAZOBACTAM 3.375 GM in SODIUM CHLORIDE 0.9% 100 ML IVPB SCH ×2 (08:14→15:32)
[2020-07-28] MEDS: MONTELUKAST 10 MG TAB PO SCH (08:14)
[2020-07-28] MEDS: DIPHENOX-ATROP 2.5-0.025 MG 1 EACH TAB PO SCH ×3 (08:14→21:18)
[2020-07-28] MEDS: PANTOPRAZOLE 40 MG TABLET PO SCH (08:14)
[2020-07-28] MEDS: FINASTERIDE 5 MG TAB PO SCH (08:14)
[2020-07-28 09:09] LABS: African American GFR (CKD) 107.1 (60.0-200.0); Anion Gap 8.6 mmol/L (4.00-12.00); BUN/Creat Ratio 18.75 Ratio (12.00-20.00); Calcium 8.8 mg/dL (8.7-10.3); Carbon Dioxide 26.4 mmol/L (21.6-31.8); Non-African American GFR(CKD) 92.4 (60.0-200.0); Potassium 4.5 mmol/L (3.5-5.5)
[2020-07-28] MEDS: HYDROPHILIC CREAM 180 GM TUBE TOPICAL SCH ×3 (11:21→21:18)
[2020-07-28 11:49] LABS: Glucose,Whole Blood 148 mg/dL (75-99)
[2020-07-28] MEDS ORDERED: LIDOCAINE 1% INJ 10MG/ML (20 ML MDV) ONE (12:44)
[2020-07-28] MEDS ORDERED: PROPOFOL 10 MG/ML 20 ML VIAL IV ONE (12:44)
[2020-07-28] MEDS ORDERED: IV FLUID CONTINUATION 1,000 ML IV ONE (12:48)
--- NOTE | 2020-07-28 13:38 | P.CONS ---
History of Present Illness - Reason for Consult Consult date: 07/27/20 Crohn's disease Requesting physician: Maria L Phan - Chief Complaint High output from ostomy - History of Present Illness 69-year-old male with multiple medical comorbidities including BPH, hypertension, hyperlipidemia, as well as a reported history of Crohn's disease of the small and large bowel for which she underwent subtotal colectomy with end ileostomy formation in 05/2020. The patient reports a long-standing history of Crohn's disease since 1998. He is been tried on numerous Biologics including Remicade which she states lost efficacy, Humira which she did not feel helped and more recently Entyvio. The patient follows up with the [facility] and break up worker in [place]. The patient had been suffering from stricturing disease with inability to perform complete colonoscopy secondary to a stricturing disease and underwent a subtotal colectomy with end ileostomy formation in May. Since that time the patient has been having a large amount of output from his ostomy and there is concern for possible midline fistula formation. GI was consult for further recommendations. Review of Systems REVIEW OF SYSTEMS: CONSTITUTIONAL: Denies any fevers, chills, weight change or fatigue. CARDIOVASCULAR: Denies any chest pain, palpitations high or low blood pressures RESPIRATORY: Denies any shortness of breath, hemoptysis or cough. GENITOURINARY: No dysuria or hematuria, he has a known history of BPH. MUSCULOSKELETAL: No weakness reported. SKIN: Denies any new rashes or lesions, jaundice or pallor. PSYCHIATRIC: Denies any depression or anxiety. NEUROLOGY: Denies headache, denies any new focal deficits. EARS/NOSE/THROAT: No recent hearing change, congestion, nasal discharge or sore throat. EYES: No pain in eyes, discharge or change in vision. GASTROINTESTINAL: As per HPI. 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 Ileostomy History of Any Multi-Drug Resistant Organisms: C-DIFF, MRSA Year Discovered:: January 2015 (At [facility] [place] per patient) MDRO Source:: Right Ankle and Back (per patient) Past Surgical History: Adenoidectomy, Bowel Resection, Orthopedic Surgery, Tonsillectomy Additional Past Surgical History / Comment(s): 01/2015 Laminectomy, discectomy with decompression L5-S1, I&D epidural abscess L5-S1 (STATED HAD MULTIPLE BX- BENIGN)and aspiration R ankle, [place] [facility] [place] . left wrist surgically repaired after fx-PLATE/SCREW. RT HIP TEVIN/SCREWS. Past Anesthesia/Blood Transfusion Reactions: No Reported Reaction Additional Past Anesthesia/Blood Transfusion Reaction / Comm: Pt states he recieved blood 02/2015 at [facility] without reaction. Past Psychological History: No Psychological Hx Reported Additional Psychological History / Comment(s): from [facility] rehab facility Smoking Status: Former smoker Past Alcohol Use History: None Reported Additional Past Alcohol Use History / Comment(s): He denies any alcohol use SINCE 1975. Past Drug Use History: None Reported Additional Drug Use History / Comment(s): No current use. - Past Family History Father Family Medical History: Myocardial Infarction ([place]) Additional Family Medical History / Comment(s): Father of massive [place]. Mother Family Medical History: Diabetes Mellitus Medications and Allergies Home Medications Medication Instructions Recorded Confirmed Type Acetaminophen Tab [Tylenol] 650 mg PO Q6H PRN 02/14/19 07/24/20 History Budesonide-Formot 160-4.5 Mcg 2 puff INHALATION RT-BID PRN 06/11/20 07/24/20 History [Symbicort 160-4.5 Mcg Inhaler] Finasteride [Proscar] 5 mg PO DAILY 06/11/20 07/24/20 History Multivit-Min/FA/Lycopen/Lutein 1 tab PO DAILY 06/11/20 07/24/20 History [Centrum Silver Tablet] Diphenoxylate HCl/Atropine 1 tab PO TID 30 Days #90 tab 07/02/20 07/24/20 Rx [Lomotil 2.5-0.025 mg Tablet] carvediloL [Coreg] 3.125 mg PO BID 07/07/20 07/24/20 History predniSONE 15 mg PO DIRECTED 07/07/20 07/24/20 History Aspirin 81 mg PO DAILY chew 07/10/20 07/24/20 Rx Atorvastatin [Lipitor] 80 mg PO HS #90 tab 07/10/20 07/24/20 Rx Clopidogrel [Plavix] 75 mg PO DAILY #90 tab 07/10/20 07/24/20 Rx Montelukast [Singulair] 10 mg PO DAILY #30 tab 07/15/20 07/24/20 Rx calcium polycarbophiL [Fibercon] 625 mg PO TID #60 tab 07/15/20 07/24/20 Rx Amoxicillin/Potassium Clav 1 tab PO Q12HR 7 Days #14 tab 07/16/20 07/24/20 Rx [Augmentin 875-125 Tablet] Heparin Sodium,Porcine [Heparin 5,000 unit SQ Q12HR vial 07/16/20 07/24/20 Rx Sodium] Pantoprazole Sodium [Protonix] 40 mg PO DAILY #30 tablet.dr 07/16/20 07/24/20 Rx INSULIN LISPRO (HumaLOG) [humaLOG] See Protocol SQ ACHS 07/24/20 07/24/20 History Nitroglycerin Sl Tabs [Nitrostat] 0.4 mg SL Q5M PRN 07/24/20 07/24/20 History Nystatin 1 applic TOPICAL DAILY 07/24/20 07/24/20 History Nystatin 1 applic TOPICAL DAILY PRN 07/24/20 07/24/20 History Ondansetron [Zofran] 4 mg PO Q8H PRN 07/24/20 07/24/20 History lisinopriL [Zestril] 5 mg PO DAILY 07/24/20 07/24/20 History metFORMIN HCL [Glucophage] 500 mg PO AC-BID 07/24/20 07/24/20 History predniSONE See Taper PO DAILY 07/24/20 07/24/20 History Allergies Allergy/AdvReac Type Severity Reaction Status Date / Time No Known Allergies Allergy Verified 07/24/20 07:26 Physical Exam Vitals: Vital Signs Temp Pulse Resp BP Pulse Ox 07/27/20 13:00 98.3 F 87 16 108/80 94 L 07/27/20 04:34 98.8 F 94 17 116/76 96 07/27/20 00:00 88 16 07/26/20 20:29 98.6 F 88 16 113/76 95 Intake and Output 07/27/20 07/27/20 07/27/20 06:59 14:59 22:59 Intake Total 500 Output Total 350 200 Balance 150 -200 Intake: Oral 500 Output: Urine 350 200 Other: Voiding Method Urinal # Voids 2 Weight 98.43 kg On physical examination, patient appears comfortable in no apparent distress. HEAD: Normocephalic, atraumatic. EYES: No scleral icterus. No conjunctival injection. MOUTH: No lesions, tongue midline. NECK: Trachea midline, no gross abnormalities. CHEST: Clear to auscultation with no wheezing or rhonchi appreciated. HEART: S1-S2 appreciated. ABDOMEN: Soft, right abdominal end ileostomy with good output, diffuse erythema on the abdominal wall with healing midline incisional wound with evidence of possible fistula formation currently packed. Bowel sounds are positive. No organomegaly. No guarding or rigidity. EXTREMITIES: No pedal edema. SKIN: No rashes, no jaundice. NEUROLOGIC: Alert and oriented x3. No focal deficits. Results CBC & Chem 7: 07/28/20 06:07 07/28/20 06:07 Labs: Abnormal Lab Results - Last 24 Hours (Table) 07/26/20 07/26/20 07/27/20 Range/Units 16:59 20:24 05:27 WBC 26.4 H (3.8-10.6) k/uL RBC 4.02 L (4.30-5.90) m/uL Hgb 11.7 L (13.0-17.5) gm/dL MCHC 30.0 L (31.0-37.0) g/dL RDW 15.7 H (11.5-15.5) % Neutrophils # 21.9 H (1.3-7.7) k/uL Monocytes # 1.4 H (0-1.0) k/uL BUN/Creatinine Ratio (12.00-20.00) Ratio Glucose (70-110) mg/dL POC Glucose (mg/dL) 223 H 282 H (75-99) mg/dL 07/27/20 07/27/20 07/27/20 Range/Units 05:27 07:18 11:32 WBC (3.8-10.6) k/uL RBC (4.30-5.90) m/uL Hgb (13.0-17.5) gm/dL MCHC (31.0-37.0) g/dL RDW (11.5-15.5) % Neutrophils # (1.3-7.7) k/uL Monocytes # (0-1.0) k/uL BUN/Creatinine Ratio 21.25 H (12.00-20.00) Ratio Glucose 159 H (70-110) mg/dL POC Glucose (mg/dL) 147 H 172 H (75-99) mg/dL Assessment and Plan (1) Crohn's colitis Narrative/Plan: 69-year-old male with a history of Crohn's disease for over 20 years who recently underwent subtotal colectomy with end ileostomy formation in the setting of a stricture who presented back to the hospital due to cellulitis and high output from his ostomy with concern over possible fistula formation. Patient has a history of Crohn's disease treated with multiple biologic therapies in the past for which he subsequently underwent surgical intervention. Currently the patient is having high output from his ostomy and there is concern of possible fistula formation. Current Visit: No Status: Acute Code(s): K50.10 - CROHN'S DISEASE OF LARGE INTESTINE WITHOUT COMPLICATIONS SNOMED Code(s): 84503837 (2) Ileostomy status Current Visit: Yes Status: Acute Code(s): Z93.2 - ILEOSTOMY STATUS SNOMED Code(s): 481606602 (3) Abdominal wall cellulitis Current Visit: No Status: Acute Code(s): L03.311 - CELLULITIS OF ABDOMINAL WALL SNOMED Code(s): 86216766 Plan: Supportive care Clear liquid diet Magnesium citrate ordered Nothing by mouth after midnight Plan for an ileoscopy tomorrow for evaluation of disease activity and possible identification of the fistula Case discussed with the surgical service Thank you for allowing us to participate in care of the patient
--- NOTE | 2020-07-28 13:43 | P.PCN ---
Date of Procedure: 07/28/20 Description of Procedure: BRIEF HISTORY: 69-year-old male with multiple medical comorbidities including BPH, hypertension, hyperlipidemia, as well as a reported history of Crohn's disease of the small and large bowel for which she underwent subtotal colectomy with end ileostomy formation in 05/2020. The patient reports a long-standing history of Crohn's disease since 1998. He is been tried on numerous Biologics including Remicade which she states lost efficacy, Humira which she did not feel helped and more recently Entyvio. The patient follows up with the [facility] 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 The patient had been suffering from stricturing disease with inability to perform complete colonoscopy secondary to a stricturing disease and underwent a subtotal colectomy with end ileostomy formation in May. Since that time the patient has been having a large amount of output from his ostomy and there is concern for possible midline fistula formation. GI was consult for further recommendations. PROCEDURE PERFORMED: Ileoscopy with biopsy. PREOPERATIVE DIAGNOSIS: Diarrhea/high output from ostomy, suspected fistula, Crohn's disease. ESTIMATED BLOOD LOSS: Minimal. IV sedation per Anesthesia. PROCEDURE: After informed consent was obtained, the patient, was brought into the endoscopy unit. IV sedation was administered by Anesthesia under continuous monitoring. Digital rectal examination was normal. Initially the Olympus Pediatric flexible video colonoscope was then inserted in the rectum, gradually advanced into the ostomy and gradually advanced into the small bowel. The scope was advanced approximately 30 cm from the ostomy in the tissue looked grossly normal with no evidence of fistula and healthy appearing tissue except for a small area of erythema approximate 5 cm from the ostomy. Random biopsies were taken of the ileum/small bowel. The patient tolerated the procedure well. IMPRESSION: Normal-appearing small bowel tissue up to 30 cm from the ostomy, with random biopsies taken of the ileum/small bowel. RECOMMENDATIONS: Findings of this examination were discussed with the patient and medical teams. Okay for diet. Consider fistulogram for further evaluation. Continue current medical management of cellulitis and diarrhea. Follow-up with gastroenterology at [facility] after discharge.
[2020-07-28] MEDS: SODIUM CHLORIDE 0.9% 1,000 ML IV SCH ×4 (15:23→23:21)
[2020-07-28 17:04] LABS: Glucose,Whole Blood 279 mg/dL (75-99)
--- NOTE | 2020-07-28 17:06 | P.PN ---
Subjective Progress Note Date: 07/28/20 Principal diagnosis: Crohn's disease, chemical dermatitis The patient is seen on rounds. He denies any nausea or vomiting. The patient underwent an ileoscopy today. The wound care nurse was in today. Objective - Vital Signs Vital signs: Vital Signs Temp 98.3 F 07/28/20 12:11 Pulse 105 H 07/28/20 12:11 Resp 16 07/28/20 12:11 BP 119/77 07/28/20 12:11 Pulse Ox 97 07/28/20 12:11 Intake & Output 07/27/20 07/28/20 07/28/20 18:59 06:59 18:59 Intake Total 600 815 Output Total 400 450 200 Balance -400 150 615 Weight 98.43 kg Intake: IV 575 Intake, IV Titration 600 Amount Sodium Chloride 0.9% 1, 600 000 ml @ 50 mls/hr IV . Q20H [facility] Rx#:[id number] Oral 240 Output: Urine 400 450 200 Other: Voiding Method Urinal Urinal Bedpan # Voids 2 1 4 - Constitutional General appearance: Present: cooperative, no acute distress - Gastrointestinal Gastrointestinal Comment(s): The dermatitis of the skin is much improved today. A pouch is in place and was just placed by the nurse along with the belt. General gastrointestinal: Present: normal bowel sounds, soft - Labs CBC & Chem 7: 07/28/20 06:07 07/28/20 06:07 Labs: Abnormal Lab Results - Last 24 Hours (Table) 07/27/20 07/27/20 07/28/20 Range/Units 17:26 20:04 06:07 WBC 26.2 H (3.8-10.6) k/uL RBC 4.11 L (4.30-5.90) m/uL Hgb 12.1 L (13.0-17.5) gm/dL MCHC 30.8 L (31.0-37.0) g/dL RDW 15.9 H (11.5-15.5) % Neutrophils # 22.3 H (1.3-7.7) k/uL Monocytes # 1.2 H (0-1.0) k/uL Glucose (70-110) mg/dL POC Glucose (mg/dL) 171 H 335 H (75-99) mg/dL 1107/28/20 07/28/20 Range/Units 06:07 07:07 11:48 WBC (3.8-10.6) k/uL RBC (4.30-5.90) m/uL Hgb (13.0-17.5) gm/dL MCHC (31.0-37.0) g/dL RDW (11.5-15.5) % Neutrophils # (1.3-7.7) k/uL Monocytes # (0-1.0) k/uL Glucose 132 H (70-110) mg/dL POC Glucose (mg/dL) 125 H 148 H (75-99) mg/dL Assessment and Plan (1) Ileostomy status Current Visit: Yes Status: Acute Code(s): Z93.2 - ILEOSTOMY STATUS SNOMED Code(s): 915428091 (2) Abdominal wall cellulitis Current Visit: No Status: Acute Code(s): L03.311 - CELLULITIS OF ABDOMINAL WALL SNOMED Code(s): 87370834 (3) Crohn's colitis Current Visit: No Status: Acute Code(s): K50.10 - CROHN'S DISEASE OF LARGE INTESTINE WITHOUT COMPLICATIONS SNOMED Code(s): 54452625 (4) Small bowel fistula Current Visit: Yes Status: Acute Code(s): K63.2 - FISTULA OF INTESTINE SNOMED Code(s): 173856207 Plan: Dr. Sultana did the ileoscopy today. He said there was one area about 5 cm in which was erythematous but no definite fistula was seen. No signs of active Crohn's disease was seen. He did perform biopsies. At this point recommend we continue the local care to the skin around the ileostomy. If the skin integrity improves, it should allow for the ostomy appliance to adhere. At that point if there is a small fistula present adjacent to the ostomy, it should be controlled with the appliance. If he continues to have issues with appliance adhering due to the fistula then we will work this up further with a fistulogram and possibly repair with something such as a Surgisis fistula plug. Will evaluate the skin over the next 2-3 days. Further recommendations to follow.
[2020-07-28] MEDS: ATORVASTATIN 80 MG TAB PO SCH (21:17)
[2020-07-28 21:20] LABS: Glucose,Whole Blood 247 mg/dL (75-99)
[2020-07-28] MEDS ORDERED: SODIUM CHLORIDE 0.9% 500 ML 500 ML IV ONE (22:46)
--- NOTE | 2020-07-28 22:50 | P.PN ---
Subjective this is a pleasant 69 years old male with past medical history of asthma, CVA/TIA, diabetes mellitus, hearing disorder, hyperlipidemia, hypertension, chronic back pain, Crohn's disease and he is steroid dependent. He was recently discharge by surgical service for colonic stricture secondary to his Crohn's disease, he underwent subtotal colectomy and ileostomy formation. He came back to the hospital again 07/07-07/16 4 non-STEMI and abdominal wound dehiscence around the colostomy back. at That time CT of the abdomen:2 cystic fluid collection in the abdomen possible postsurgical abscesses, however surgical team felt no need for I and D as they don't behave like abscesses clinically. He was evaluated by surgical team and infectious disease at that time, no need for surgical intervention, he was treated with Zosyn and discharged on short course of oral antibiotics to rehab. He presents this time with similar problem where the colostomy bag keep exploding and does not fit in a Place, due to the near point wound and surrounding cellulitis and some discharge. Surgical team already evaluated the patient and we'll keep monitoring call Monday for possible surgical evaluation in the operation room to rule out fistula versus others currently patient looks his stable with normal vitals, denies any other symptoms, no chest pain or dyspnea or abdominal pain, no nausea vomiting, colostomy back still functioning with stool output. No fever patient presents this time because his ostomy stitches opened up over the weekend spontaneously. And on presentation patient was found to have elevated cardiac enzymes, however patient was asymptomatic with no chest pain or dyspnea.Cardiac cath showing 95% stenosis of the LAD, and stent was placed by cardiology team , patient was a started on dual antiplatelet therapy with aspirin and Plavix and importance of interest of therapy is explained for the patient extensively. Also culture obtained from his abdominal surgical wound, growing Klebsiella and E. coli. Patient was treated with IV antibiotics as per infectious disease recommendation with Zosyn. CT of the abdomen:2 cystic fluid collection in the abdomen possible postsurgical abscesses, however surgical team felt no need for I and D as they don't behave like abscesses clinically. Also patient hospital course was complicated by acute dyspnea and wheezing, chest x-ray showing patchy infiltrate in the retrocardiac and left lung base suspicious for pneumonia. Patient passed swallow test, he was placed on his regular diet. He continued to be treated with Zosyn, steroids added for possible COPD exacerbation as well as bronchodilator. Patient remained on room air and his symptoms improved and this airway wheezing subsided. On the day of discharge patient was pleasant, lying in bed most of the time, his abdominal wound is improving with dressing is in place. No surrounding cellulitis. No chest pain or dyspnea or change in urine or bowel habits. No fever. Patient was cleared for discharge by all consultants including infectious disease, snapper on and surgery team he has some epigastric discomfort due to steroid, protonix is added, abdomen is soft with no diarrhea ,pt is cleared for discharge by surgery service 07/28/2020 Patient has no new complaint. Distal been treated for abdominal wall cellulitis around colostomy back, and surgery team recommended ileostomy to check for fistula Patient is status post Ileoscopy today by GI team: Normal-appearing small bowel tissue, no mention of fistula, Consider fistulogram for further evaluation is recommended by GI team Patient blood pressure is low normal with slightly tachycardic, we will increase his fluid to 100 mL per hour Comment of a bolus of 500 mL. Continue with Zosyn. We will check for pro-calcitonin. Objective - Vital Signs Vital signs: Vital Signs Temp 98.3 F 07/28/20 12:11 Pulse 90 07/28/20 16:00 Resp 16 07/28/20 16:00 BP 119/77 07/28/20 12:11 Pulse Ox 97 07/28/20 12:11 Intake & Output 07/27/20 07/28/20 07/28/20 18:59 06:59 18:59 Intake Total 600 1535 Output Total 400 450 350 Balance -946 919 3406 Weight 98.43 kg Intake: IV 575 Intake, IV Titration 600 Amount Sodium Chloride 0.9% 1, 600 000 ml @ 50 mls/hr IV . Q20H [facility] Rx#:[id number] Oral 960 Output: Urine 400 450 350 Other: Voiding Method Urinal Urinal Bedpan # Voids 2 1 4 - Exam GENERAL: The patient is alert and oriented x3, not in any acute distress. Well developed, well nourished. HEENT: Pupils are round and equally reacting to light. EOMI. No scleral icterus. No conjunctival pallor. Normocephalic, atraumatic. No pharyngeal erythema. No thyromegaly. CARDIOVASCULAR: S1 and S2 present. No murmurs, rubs, or gallops. PULMONARY: Chest is clear to auscultation, no wheezing or crackles. -ABDOMEN: Soft, nontender, nondistended, normoactive bowel sounds. No palpable organomegaly. Colostomy bag is in place currently, with a small surrounding area of cellulitis, surgical wound dehiscence with some discharge MUSCULOSKELETAL: No joint swelling or deformity. EXTREMITIES: No cyanosis, clubbing, or pedal edema. NEUROLOGICAL: Gross neurological examination did not reveal any focal deficits. SKIN: No rashes. No petechiae - Labs CBC & Chem 7: 07/28/20 06:07 07/28/20 06:07 Labs: Abnormal Lab Results - Last 24 Hours (Table) 07/27/20 07/28/20 07/28/20 Range/Units 20:04 06:07 06:07 WBC 26.2 H (3.8-10.6) k/uL RBC 4.11 L (4.30-5.90) m/uL Hgb 12.1 L (13.0-17.5) gm/dL MCHC 30.8 L (31.0-37.0) g/dL RDW 15.9 H (11.5-15.5) % Neutrophils # 22.3 H (1.3-7.7) k/uL Monocytes # 1.2 H (0-1.0) k/uL Glucose 132 H (70-110) mg/dL POC Glucose (mg/dL) 335 H (75-99) mg/dL 07/28/20 07/28/20 07/28/20 Range/Units 07:07 11:48 17:02 WBC (3.8-10.6) k/uL RBC (4.30-5.90) m/uL Hgb (13.0-17.5) gm/dL MCHC (31.0-37.0) g/dL RDW (11.5-15.5) % Neutrophils # (1.3-7.7) k/uL Monocytes # (0-1.0) k/uL Glucose (70-110) mg/dL POC Glucose (mg/dL) 125 H 148 H 279 H (75-99) mg/dL Assessment and Plan Assessment: Malfunction of the colostomy and its back due to nearby wound and cellulitis pericolostomy Abdominal wall cellulitis and cigarettes discharge, rule out fistula Recent history of Hospital-acquired left lower lobe pneumonia, aspiration pneumonia has been ruled out Recent history of non-STEMI, status post cardiac cath and stent placement to the LAD Recent surgical abdominal wound dehiscence and infection. CT of the abdomen:2 cystic fluid collection in the abdomen, no need for surgical intervention per surgery team Diabetes mellitus with hyperglycemia COPD with no acute exacerbation recent history of Colonic stricture secondary to Crohn's disease status post subtotal colectomy and ileostomy formation Hyperlipidemia Hypertension Transient hypotensive, improved with fluids and steroids History of CVA/TIA with some residual blood test Hearing difficulty Chronic back pain Leukocytosis secondary to steroid effect and reactive from surgery Plan: This is a pleasant 69 years old male who presents with a malfunctioning colostomy back with surrounding cellulitis and surgery team on the case to rule out fistula patient may need fistulogram per surgery team, continue patient on Zosyn, follow-up vitals and clinically. Continue monitoring sugar with insulin sliding scale, increase metformin 500 mg up to 1000 twice a day Consult colostomy nurse Labs and medication were reviewed.. Continue same treatment. Continue with symptomatic treatment. Resume home medication. Monitor lytes and vitals. DVT and GI prophylaxis. Further recommendations depends on the clinical course of the patient DVT prophylaxis: Subcutaneous heparin GI Prophylaxis: Ppi
[2020-07-29] MEDS: PIPERACILLIN-TAZOBACTAM 3.375 GM in SODIUM CHLORIDE 0.9% 100 ML IVPB SCH ×3 (00:04→17:00)
[2020-07-29 05:14] LABS: Anisocytosis Slight; Basophils # (A) 0.1 k/uL (0-0.2); Basophils % (A) 0 %; Eosinophils # (A) 0.2 k/uL (0-0.7); Eosinophils % (A) 1 %; HCT 34.9 % (39.0-53.0); HGB 10.9 gm/dL (13.0-17.5); Hypochromasia Moderate; Lymphocytes # (A) 2.1 k/uL (1.0-4.8); Lymphocytes % (A) 10 %; MCH 30.1 pg (25.0-35.0); MCHC 31.1 g/dL (31.0-37.0); MCV 96.7 fL (80.0-100.0); Mean Platelet Volume 7.5; Monocytes % (A) 5 %; Neutrophils % (A) 83 %; Platelet Count 268 k/uL (150-450); RBC 3.61 m/uL (4.30-5.90); RDW 16.2 % (11.5-15.5); WBC 20.5 k/uL (3.8-10.6)
[2020-07-29 07:13] LABS: Glucose,Whole Blood 209 mg/dL (75-99)
[2020-07-29] MEDS: SYMBICORT 160-4.5 MCG INHALER INHALATION PRN ×2 (07:29→19:50)
[2020-07-29] MEDS: MONTELUKAST 10 MG TAB PO SCH (07:58)
[2020-07-29] MEDS: ASPIRIN 81 MG PO SCH (07:58)
[2020-07-29] MEDS: CLOPIDOGREL 75 MG TAB PO SCH (07:58)
[2020-07-29] MEDS: carvediloL 3.125 MG TAB PO SCH ×2 (07:59→22:05)
[2020-07-29] MEDS: FINASTERIDE 5 MG TAB PO SCH (07:59)
[2020-07-29] MEDS: PANTOPRAZOLE 40 MG TABLET PO SCH (07:59)
[2020-07-29] MEDS: metFORMIN 500 MG TAB PO SCH ×2 (07:59→17:50)
[2020-07-29] MEDS: DIPHENOX-ATROP 2.5-0.025 MG 1 EACH TAB PO SCH ×3 (07:59→22:06)
[2020-07-29] MEDS: predniSONE 10 MG TAB PO SCH (07:59)
[2020-07-29] MEDS: INSULIN ASPART (NovoLOG) 100 UNIT/ML VIAL SQ SCH ×4 (08:00→22:05)
[2020-07-29] MEDS: HEPARIN SODIUM,PORCINE 5,000 UNIT/ML 1 ML VIAL SQ SCH ×2 (08:00→22:05)
[2020-07-29 10:03] LABS: African American GFR (CKD) 102.1 (60.0-200.0); Anion Gap 7.2 mmol/L (4.00-12.00); BUN/Creat Ratio 25.56 Ratio (12.00-20.00); Calcium 8.2 mg/dL (8.7-10.3); Carbon Dioxide 24.8 mmol/L (21.6-31.8); Non-African American GFR(CKD) 88.1 (60.0-200.0); Potassium 4.2 mmol/L (3.5-5.5)
[2020-07-29 11:09] LABS: Glucose,Whole Blood 268 mg/dL (75-99)
[2020-07-29] MEDS: HYDROPHILIC CREAM 180 GM TUBE TOPICAL SCH ×3 (12:47→22:06)
--- NOTE | 2020-07-29 13:11 | P.PN ---
Subjective Progress Note Date: 07/29/20 Principal diagnosis: Crohn's disease, high output from ostomy The patient was seen sitting up in the recliner. He states he is feeling well overall. His output from his ostomy has decreased. He underwent an ileoscopy yesterday with Dr. Sultana revealed a normal-appearing small bowel tissue up to 30 cm from the ostomy, with random biopsies taken. Was a small area of erythema approximately 5 cm from the ostomy. No evidence of fistula. Dr. Ty is following patient. Objective - Vital Signs Vital signs: Vital Signs Temp 97.9 F 07/29/20 11:49 Pulse 87 07/29/20 11:49 Resp 18 07/29/20 11:49 BP 106/70 07/29/20 11:49 Pulse Ox 92 L 07/29/20 11:49 Intake & Output 07/28/20 07/29/20 07/29/20 18:59 06:59 18:59 Intake Total 1535 1200 Output Total 350 300 Balance 1185 900 Intake: IV 575 Intake, IV Titration 1200 Amount Sodium Chloride 0.9% 1, 1200 000 ml @ 100 mls/hr IV . Q10H [facility] Rx#:[id number] Oral 960 Output: Urine 350 Stool 300 Other: Voiding Method Bedpan Urinal Urinal # Voids 4 2 # Bowel Movements 2 - Exam General appearance: The patient is alert, oriented, in no acute distress. HET: Head is normocephalic and atraumatic. Conjunctiva pink. Sclera anicteric. Neck: Supple without lymphadenopathy. Abdomen: Soft, nontender, nondistended with bowel sounds. No guarding or rigidity. Right abdominal ileostomy with surrounding erythema and scaling of skin. Normal output. Extremities: Normal skin color and turgor. No pedal edema Neurological: No focal deficits. Alert and oriented 3. - Labs CBC & Chem 7: 07/29/20 04:38 07/29/20 04:38 Labs: Abnormal Lab Results - Last 24 Hours (Table) 07/28/20 07/28/20 07/29/20 Range/Units 17:02 21:05 04:38 WBC 20.5 H (3.8-10.6) k/uL RBC 3.61 L (4.30-5.90) m/uL Hgb 10.9 L (13.0-17.5) gm/dL Hct 34.9 L (39.0-53.0) % RDW 16.2 H (11.5-15.5) % Neutrophils # 17.0 H (1.3-7.7) k/uL BUN/Creatinine Ratio (12.00-20.00) Ratio Glucose (70-110) mg/dL POC Glucose (mg/dL) 279 H 247 H (75-99) mg/dL Calcium (8.7-10.3) mg/dL Procalcitonin (0.02-0.09) ng/mL 07/29/20 07/29/20 07/29/20 Range/Units 04:38 04:38 07:12 WBC (3.8-10.6) k/uL RBC (4.30-5.90) m/uL Hgb (13.0-17.5) gm/dL Hct (39.0-53.0) % RDW (11.5-15.5) % Neutrophils # (1.3-7.7) k/uL BUN/Creatinine Ratio 25.56 H (12.00-20.00) Ratio Glucose 181 H (70-110) mg/dL POC Glucose (mg/dL) 209 H (75-99) mg/dL Calcium 8.2 L (8.7-10.3) mg/dL Procalcitonin 0.13 H (0.02-0.09) ng/mL 07/29/20 Range/Units 11:07 WBC (3.8-10.6) k/uL RBC (4.30-5.90) m/uL Hgb (13.0-17.5) gm/dL Hct (39.0-53.0) % RDW (11.5-15.5) % Neutrophils # (1.3-7.7) k/uL BUN/Creatinine Ratio (12.00-20.00) Ratio Glucose (70-110) mg/dL POC Glucose (mg/dL) 268 H (75-99) mg/dL Calcium (8.7-10.3) mg/dL Procalcitonin (0.02-0.09) ng/mL Assessment and Plan (1) Crohn's colitis Narrative/Plan: 69-year-old male with a history of Crohn's disease for over 20 years who recently underwent subtotal colectomy with end ileostomy formation in the setting of a stricture who presented back to the hospital due to cellulitis and high output from his ostomy with concern over possible fistula formation. Patient has a history of Crohn's disease treated with multiple biologic therapies in the past for which he subsequently underwent surgical intervention. Currently the patient is having high output from his ostomy and there is concern of possible fistula formation. He underwent an ileoscopy yesterday wh ch showed no evidence of a fistula, with normal appearing bowel tissue up to 30 cm from the ostomy. Current Visit: No Status: Acute Code(s): K50.10 - CROHN'S DISEASE OF LARGE INTESTINE WITHOUT COMPLICATIONS SNOMED Code(s): 84115685 (2) Ileostomy status Current Visit: Yes Status: Acute Code(s): Z93.2 - ILEOSTOMY STATUS SNOMED Code(s): 799941536 (3) Abdominal wall cellulitis Current Visit: No Status: Acute Code(s): L03.311 - CELLULITIS OF ABDOMINAL WALL SNOMED Code(s): 74127725 Plan: Supportive care Diet as tolerated Patient is status post ileoscopy with normal findings Surgical services on consult The impression and plan of care has been dictated as directed. I performed a history and examination of this patient, discussed the same with the dictator. I agree with the dictator's note ,documented as a scribe. Any additional findings or plans will be noted.
--- NOTE | 2020-07-29 14:07 | P.PN ---
Subjective Progress Note Date: 07/29/20 Principal diagnosis: Crohn's disease, chemical dermatitis Above as above the patient is seen on rounds this morning. The ostomy appliance has adhered well since yesterday without leakage. His pain is improved. Tolerating a diet. No nausea or vomiting. Objective - Vital Signs Vital signs: Vital Signs Temp 97.9 F 07/29/20 11:49 Pulse 87 07/29/20 11:49 Resp 18 07/29/20 11:49 BP 106/70 07/29/20 11:49 Pulse Ox 92 L 07/29/20 11:49 Intake & Output 07/28/20 07/29/20 07/29/20 18:59 06:59 18:59 Intake Total 1535 1200 100 Output Total 350 300 150 Balance 1185 900 -50 Intake: IV 575 Intake, IV Titration 1200 100 Amount Piperacillin-Tazobactam 3 100 .375 gm In Sodium Chloride 0.9% 100 ml @ 25 mls/hr IVPB Q8HR [facility] Rx# :[id number] Sodium Chloride 0.9% 1, 1200 000 ml @ 100 mls/hr IV . Q10H [facility] Rx#:[id number] Oral 960 Output: Urine 350 Stool 300 Urine/Stool Mix 150 Other: Voiding Method Bedpan Urinal Urinal # Voids 4 2 # Bowel Movements 2 - Constitutional General appearance: Present: cooperative - Gastrointestinal Gastrointestinal Comment(s): ileostomy output is improved, soft formed stool in appliance General gastrointestinal: Present: normal bowel sounds, soft - Integumentary Integumentary Comment(s): Skin integrity is markedly improved. - Labs CBC & Chem 7: 07/29/20 04:38 07/29/20 04:38 Labs: Abnormal Lab Results - Last 24 Hours (Table) 07/28/20 07/28/20 07/29/20 Range/Units 17:02 21:05 04:38 WBC 20.5 H (3.8-10.6) k/uL RBC 3.61 L (4.30-5.90) m/uL Hgb 10.9 L (13.0-17.5) gm/dL Hct 34.9 L (39.0-53.0) % RDW 16.2 H (11.5-15.5) % Neutrophils # 17.0 H (1.3-7.7) k/uL BUN/Creatinine Ratio (12.00-20.00) Ratio Glucose (70-110) mg/dL POC Glucose (mg/dL) 279 H 247 H (75-99) mg/dL Calcium (8.7-10.3) mg/dL Procalcitonin (0.02-0.09) ng/mL 07/29/20 07/29/20 07/29/20 Range/Units 04:38 04:38 07:12 WBC (3.8-10.6) k/uL RBC (4.30-5.90) m/uL Hgb (13.0-17.5) gm/dL Hct (39.0-53.0) % RDW (11.5-15.5) % Neutrophils # (1.3-7.7) k/uL BUN/Creatinine Ratio 25.56 H (12.00-20.00) Ratio Glucose 181 H (70-110) mg/dL POC Glucose (mg/dL) 209 H (75-99) mg/dL Calcium 8.2 L (8.7-10.3) mg/dL Procalcitonin 0.13 H (0.02-0.09) ng/mL 07/29/20 Range/Units 11:07 WBC (3.8-10.6) k/uL RBC (4.30-5.90) m/uL Hgb (13.0-17.5) gm/dL Hct (39.0-53.0) % RDW (11.5-15.5) % Neutrophils # (1.3-7.7) k/uL BUN/Creatinine Ratio (12.00-20.00) Ratio Glucose (70-110) mg/dL POC Glucose (mg/dL) 268 H (75-99) mg/dL Calcium (8.7-10.3) mg/dL Procalcitonin (0.02-0.09) ng/mL Assessment and Plan (1) Ileostomy status Current Visit: Yes Status: Acute Code(s): Z93.2 - ILEOSTOMY STATUS SNOMED Code(s): 331271709 (2) Abdominal wall cellulitis Current Visit: No Status: Acute Code(s): L03.311 - CELLULITIS OF ABDOMINAL WALL SNOMED Code(s): 52516627 (3) Crohn's colitis Current Visit: No Status: Acute Code(s): K50.10 - CROHN'S DISEASE OF LARGE INTESTINE WITHOUT COMPLICATIONS SNOMED Code(s): 36555832 (4) Small bowel fistula Current Visit: Yes Status: Acute Code(s): K63.2 - FISTULA OF INTESTINE SNOMED Code(s): 185771480 Plan: The skin integrity is very much improved. We will continue current care. Monitor the skin. Hopefully with the improvement of the consistency of the ileostomy output we will not have any further issues with the appliance adhering. We will monitor the patient over the next day or 2. Once the ostomy appliance is able to be working well so we do not develop recurrent chemical dermatitis, he would be able to to be discharged to rehab or home.
[2020-07-29 17:11] LABS: Glucose,Whole Blood 316 mg/dL (75-99)
[2020-07-29] MEDS: SODIUM CHLORIDE 0.9% 1,000 ML IV SCH ×2 (18:03→22:07)
--- NOTE | 2020-07-29 20:47 | P.PN ---
Subjective this is a pleasant 69 years old male with past medical history of asthma, CVA/TIA, diabetes mellitus, hearing disorder, hyperlipidemia, hypertension, chronic back pain, Crohn's disease and he is steroid dependent. He was recently discharge by surgical service for colonic stricture secondary to his Crohn's disease, he underwent subtotal colectomy and ileostomy formation. He came back to the hospital again 07/07-07/16 4 non-STEMI and abdominal wound dehiscence around the colostomy back. at That time CT of the abdomen:2 cystic fluid collection in the abdomen possible postsurgical abscesses, however surgical team felt no need for I and D as they don't behave like abscesses clinically. He was evaluated by surgical team and infectious disease at that time, no need for surgical intervention, he was treated with Zosyn and discharged on short course of oral antibiotics to rehab. He presents this time with similar problem where the colostomy bag keep exploding and does not fit in a Place, due to the near point wound and surrounding cellulitis and some discharge. Surgical team already evaluated the patient and we'll keep monitoring call Monday for possible surgical evaluation in the operation room to rule out fistula versus others currently patient looks his stable with normal vitals, denies any other symptoms, no chest pain or dyspnea or abdominal pain, no nausea vomiting, colostomy back still functioning with stool output. No fever patient presents this time because his ostomy stitches opened up over the weekend spontaneously. And on presentation patient was found to have elevated cardiac enzymes, however patient was asymptomatic with no chest pain or dyspnea.Cardiac cath showing 95% stenosis of the LAD, and stent was placed by cardiology team , patient was a started on dual antiplatelet therapy with aspirin and Plavix and importance of interest of therapy is explained for the patient extensively. Also culture obtained from his abdominal surgical wound, growing Klebsiella and E. coli. Patient was treated with IV antibiotics as per infectious disease recommendation with Zosyn. CT of the abdomen:2 cystic fluid collection in the abdomen possible postsurgical abscesses, however surgical team felt no need for I and D as they don't behave like abscesses clinically. Also patient hospital course was complicated by acute dyspnea and wheezing, chest x-ray showing patchy infiltrate in the retrocardiac and left lung base suspicious for pneumonia. Patient passed swallow test, he was placed on his regular diet. He continued to be treated with Zosyn, steroids added for possible COPD exacerbation as well as bronchodilator. Patient remained on room air and his symptoms improved and this airway wheezing subsided. On the day of discharge patient was pleasant, lying in bed most of the time, his abdominal wound is improving with dressing is in place. No surrounding cellulitis. No chest pain or dyspnea or change in urine or bowel habits. No fever. Patient was cleared for discharge by all consultants including infectious disease, wax ball molder and surgery team he has some epigastric discomfort due to steroid, protonix is added, abdomen is soft with no diarrhea ,pt is cleared for discharge by surgery service 07/28/2020 Patient has no new complaint. Distal been treated for abdominal wall cellulitis around colostomy back, and surgery team recommended ileostomy to check for fistula Patient is status post Ileoscopy today by GI team: Normal-appearing small bowel tissue, no mention of fistula, Consider fistulogram for further evaluation is recommended by GI team Patient blood pressure is low normal with slightly tachycardic, we will increase his fluid to 100 mL per hour Comment of a bolus of 500 mL. Continue with Zosyn. We will check for pro-calcitonin. 07/29/2020 Patient with no new complaints. He has negative ileostomy test yesterday. I discussed the case with Dr. Eldridge today and the recommendation is to keep monitoring since his abdominal wall cellulitis is significantly improved while on Zosyn, we will keep monitoring for 1-2 days to ensure healing and stability of the colostomy back appliance. Otherwise patient will need fistulogram and possible surgical correction. Currently patient is feeling significantly regarding his cellulitis and the colostomy back is better felt with the belt around his belly Objective - Vital Signs Vital signs: Vital Signs Temp 97.9 F 07/29/20 11:49 Pulse 87 07/29/20 11:49 Resp 18 07/29/20 11:49 BP 106/70 07/29/20 11:49 Pulse Ox 92 L 07/29/20 11:49 Intake & Output 07/28/20 07/29/20 07/29/20 18:59 06:59 18:59 Intake Total 1535 1200 100 Output Total 350 300 150 Balance 1185 900 -50 Intake: IV 575 Intake, IV Titration 1200 100 Amount Piperacillin-Tazobactam 3 100 .375 gm In Sodium Chloride 0.9% 100 ml @ 25 mls/hr IVPB Q8HR [facility] Rx# :[id number] Sodium Chloride 0.9% 1, 1200 000 ml @ 100 mls/hr IV . Q10H [facility] Rx#:[id number] Oral 960 Output: Urine 350 Stool 300 Urine/Stool Mix 150 Other: Voiding Method Bedpan Urinal Urinal # Voids 4 2 # Bowel Movements 2 - Exam GENERAL: The patient is alert and oriented x3, not in any acute distress. Well developed, well nourished. HEENT: Pupils are round and equally reacting to light. EOMI. No scleral icterus. No conjunctival pallor. Normocephalic, atraumatic. No pharyngeal erythema. No thyromegaly. CARDIOVASCULAR: S1 and S2 present. No murmurs, rubs, or gallops. PULMONARY: Chest is clear to auscultation, no wheezing or crackles. -ABDOMEN: Soft, nontender, nondistended, normoactive bowel sounds. No palpable organomegaly. Colostomy bag is in place currently, with a small surrounding area of cellulitis, surgical wound dehiscence with some discharge MUSCULOSKELETAL: No joint swelling or deformity. EXTREMITIES: No cyanosis, clubbing, or pedal edema. NEUROLOGICAL: Gross neurological examination did not reveal any focal deficits. SKIN: No rashes. No petechiae - Labs CBC & Chem 7: 07/29/20 04:38 07/29/20 04:38 Labs: Abnormal Lab Results - Last 24 Hours (Table) 07/28/20 07/28/20 07/29/20 Range/Units 17:02 21:05 04:38 WBC 20.5 H (3.8-10.6) k/uL RBC 3.61 L (4.30-5.90) m/uL Hgb 10.9 L (13.0-17.5) gm/dL Hct 34.9 L (39.0-53.0) % RDW 16.2 H (11.5-15.5) % Neutrophils # 17.0 H (1.3-7.7) k/uL BUN/Creatinine Ratio (12.00-20.00) Ratio Glucose (70-110) mg/dL POC Glucose (mg/dL) 279 H 247 H (75-99) mg/dL Calcium (8.7-10.3) mg/dL Procalcitonin (0.02-0.09) ng/mL 07/29/20 07/29/20 07/29/20 Range/Units 04:38 04:38 07:12 WBC (3.8-10.6) k/uL RBC (4.30-5.90) m/uL Hgb (13.0-17.5) gm/dL Hct (39.0-53.0) % RDW (11.5-15.5) % Neutrophils # (1.3-7.7) k/uL BUN/Creatinine Ratio 25.56 H (12.00-20.00) Ratio Glucose 181 H (70-110) mg/dL POC Glucose (mg/dL) 209 H (75-99) mg/dL Calcium 8.2 L (8.7-10.3) mg/dL Procalcitonin 0.13 H (0.02-0.09) ng/mL 07/29/20 Range/Units 11:07 WBC (3.8-10.6) k/uL RBC (4.30-5.90) m/uL Hgb (13.0-17.5) gm/dL Hct (39.0-53.0) % RDW (11.5-15.5) % Neutrophils # (1.3-7.7) k/uL BUN/Creatinine Ratio (12.00-20.00) Ratio Glucose (70-110) mg/dL POC Glucose (mg/dL) 268 H (75-99) mg/dL Calcium (8.7-10.3) mg/dL Procalcitonin (0.02-0.09) ng/mL Assessment and Plan Assessment: Malfunction of the colostomy and its back due to nearby wound and cellulitis pericolostomy Abdominal wall cellulitis and cigarettes discharge, rule out fistula Recent history of Hospital-acquired left lower lobe pneumonia, aspiration pneumonia has been ruled out Recent history of non-STEMI, status post cardiac cath and stent placement to the LAD Recent surgical abdominal wound dehiscence and infection. CT of the abdomen:2 cystic fluid collection in the abdomen, no need for surgical intervention per surgery team Diabetes mellitus with hyperglycemia COPD with no acute exacerbation recent history of Colonic stricture secondary to Crohn's disease status post sub total colectomy and ileostomy formation Hyperlipidemia Hypertension Transient hypotensive, improved with fluids and steroids History of CVA/TIA with some residual blood test Hearing difficulty Chronic back pain Leukocytosis secondary to steroid effect and reactive from surgery Plan: This is a pleasant 69 years old male who presents with a malfunctioning colostomy back with surrounding cellulitis and surgery team on the case to rule out fistula patient may need fistulogram per surgery team, continue patient on Zosyn, follow-up vitals and clinically. Continue monitoring sugar with insulin sliding scale, increase metformin 500 mg up to 1000 twice a day Consult colostomy nurse Labs and medication were reviewed.. Continue same treatment. Continue with symptomatic treatment. Resume home medication. Monitor lytes and vitals. DVT and GI prophylaxis. Further recommendations depends on the clinical course of the patient DVT prophylaxis: Subcutaneous heparin GI Prophylaxis: Ppi
[2020-07-29 20:57] LABS: Glucose,Whole Blood 293 mg/dL (75-99)
[2020-07-29] MEDS: ATORVASTATIN 80 MG TAB PO SCH (22:05)
[2020-07-30] MEDS: PIPERACILLIN-TAZOBACTAM 3.375 GM in SODIUM CHLORIDE 0.9% 100 ML IVPB SCH ×4 (00:17→23:58)
[2020-07-30 07:31] LABS: Anisocytosis Slight; Basophils # (A) 0.1 k/uL (0-0.2); Basophils % (A) 0 %; Eosinophils # (A) 0.2 k/uL (0-0.7); Eosinophils % (A) 1 %; HCT 34.7 % (39.0-53.0); HGB 10.6 gm/dL (13.0-17.5); Hypochromasia Moderate; Lymphocytes # (A) 2.3 k/uL (1.0-4.8); Lymphocytes % (A) 12 %; MCH 29.5 pg (25.0-35.0); MCHC 30.5 g/dL (31.0-37.0); MCV 96.5 fL (80.0-100.0); Monocytes # (A) 1.1 k/uL (0-1.0); Monocytes % (A) 6 %; Neutrophils # (A) 15.3 k/uL (1.3-7.7); Neutrophils % (A) 80 %; Platelet Count 243 k/uL (150-450); RBC 3.59 m/uL (4.30-5.90); RDW 16.4 % (11.5-15.5); WBC 19.1 k/uL (3.8-10.6)
[2020-07-30 07:37] LABS: Glucose,Whole Blood 129 mg/dL (75-99)
[2020-07-30] MEDS: INSULIN ASPART (NovoLOG) 100 UNIT/ML VIAL SQ SCH ×4 (07:40→21:45)
[2020-07-30] MEDS: SYMBICORT 160-4.5 MCG INHALER INHALATION PRN (07:44)
[2020-07-30] MEDS: SODIUM CHLORIDE 0.9% 1,000 ML IV SCH ×2 (07:48→23:59)
[2020-07-30] MEDS: predniSONE 10 MG TAB PO SCH (07:49)
[2020-07-30] MEDS: metFORMIN 500 MG TAB PO SCH ×2 (07:49→17:58)
[2020-07-30] MEDS: carvediloL 3.125 MG TAB PO SCH ×2 (07:49→21:43)
[2020-07-30] MEDS: HEPARIN SODIUM,PORCINE 5,000 UNIT/ML 1 ML VIAL SQ SCH ×2 (07:49→21:43)
[2020-07-30] MEDS: CLOPIDOGREL 75 MG TAB PO SCH (07:49)
[2020-07-30] MEDS: PANTOPRAZOLE 40 MG TABLET PO SCH (07:49)
[2020-07-30] MEDS: DIPHENOX-ATROP 2.5-0.025 MG 1 EACH TAB PO SCH ×3 (07:49→21:43)
[2020-07-30] MEDS: ASPIRIN 81 MG PO SCH (07:49)
[2020-07-30] MEDS: FINASTERIDE 5 MG TAB PO SCH (07:50)
[2020-07-30] MEDS: MONTELUKAST 10 MG TAB PO SCH (07:50)
[2020-07-30] MEDS: HYDROPHILIC CREAM 180 GM TUBE TOPICAL SCH ×3 (07:51→21:47)
[2020-07-30 10:49] LABS: African American GFR (CKD) 120.6 (60.0-200.0); Anion Gap 8.7 mmol/L (4.00-12.00); BUN/Creat Ratio 31.67 Ratio (12.00-20.00); Calcium 8.3 mg/dL (8.7-10.3); Carbon Dioxide 26.3 mmol/L (21.6-31.8); Potassium 4.1 mmol/L (3.5-5.5)
[2020-07-30 11:49] LABS: Glucose,Whole Blood 241 mg/dL (75-99)
[2020-07-30 16:33] LABS: Glucose,Whole Blood 269 mg/dL (75-99)
--- NOTE | 2020-07-30 17:45 | P.PN ---
Subjective Progress Note Date: 07/30/20 Principal diagnosis: Crohn's disease, chemical dermatitis The patient is seen on rounds. Doing well. Eating better. The ostomy appliance is doing well. He had a little leakage today when the appliance shifted otherwise there hasn't been any leakage. Objective - Vital Signs Vital signs: Vital Signs Temp 98.2 F 07/30/20 12:39 Pulse 78 07/30/20 12:39 Resp 16 07/30/20 12:39 BP 111/73 07/30/20 12:39 Pulse Ox 94 L 07/30/20 12:39 Intake & Output 07/29/20 07/30/20 07/30/20 18:59 06:59 18:59 Intake Total 100 120 Output Total 797 871 8945 Balance -50 750 -980 Intake: Intake, IV Titration 100 Amount Piperacillin-Tazobactam 3 100 .375 gm In Sodium Chloride 0.9% 100 ml @ 25 mls/hr IVPB Q8HR [facility] Rx# :[id number] Oral 120 Output: Urine 600 650 Stool 150 150 Urine/Stool Mix 150 300 Other: Voiding Method Urinal Urinal Toilet Urinal # Voids 2 - Constitutional General appearance: Present: cooperative, no acute distress - Gastrointestinal Gastrointestinal Comment(s): Better consistency of the ileostomy output than Monday General gastrointestinal: Present: normal bowel sounds, soft - Integumentary Integumentary Comment(s): The dermatitis is markedly improved from Monday. - Labs CBC & Chem 7: 07/30/20 06:26 07/30/20 06:26 Labs: Abnormal Lab Results - Last 24 Hours (Table) 07/29/20 07/30/20 07/30/20 Range/Units 20:51 06:26 06:26 WBC 19.1 H (3.8-10.6) k/uL RBC 3.59 L (4.30-5.90) m/uL Hgb 10.6 L (13.0-17.5) gm/dL Hct 34.7 L (39.0-53.0) % MCHC 30.5 L (31.0-37.0) g/dL RDW 16.4 H (11.5-15.5) % Neutrophils # 15.3 H (1.3-7.7) k/uL Monocytes # 1.1 H (0-1.0) k/uL BUN/Creatinine Ratio 31.67 H (12.00-20.00) Ratio Glucose 134 H (70-110) mg/dL POC Glucose (mg/dL) 293 H (75-99) mg/dL Calcium 8.3 L (8.7-10.3) mg/dL 07/30/20 07/30/20 07/30/20 Range/Units 07:35 11:43 16:31 WBC (3.8-10.6) k/uL RBC (4.30-5.90) m/uL Hgb (13.0-17.5) gm/dL Hct (39.0-53.0) % MCHC (31.0-37.0) g/dL RDW (11.5-15.5) % Neutrophils # (1.3-7.7) k/uL Monocytes # (0-1.0) k/uL BUN/Creatinine Ratio (12.00-20.00) Ratio Glucose (70-110) mg/dL POC Glucose (mg/dL) 129 H 241 H 269 H (75-99) mg/dL Calcium (8.7-10.3) mg/dL Assessment and Plan (1) Ileostomy status Current Visit: Yes Status: Acute Code(s): Z93.2 - ILEOSTOMY STATUS SNOMED Code(s): 093658763 (2) Abdominal wall cellulitis Current Visit: No Status: Acute Code(s): L03.311 - CELLULITIS OF ABDOMINAL WALL SNOMED Code(s): 39165761 (3) Crohn's colitis Current Visit: No Status: Acute Code(s): K50.10 - CROHN'S DISEASE OF LARGE INTESTINE WITHOUT COMPLICATIONS SNOMED Code(s): 74102905 (4) Small bowel fistula Current Visit: Yes Status: Acute Code(s): K63.2 - FISTULA OF INTESTINE SNOMED Code(s): 664479803 Plan: The ileoscopy with biopsy showed no evidence of active Crohn's disease. His skin condition is improved. The ostomy appliance with belt is controlling the ostomy output so that there isn't continuous chemical inflammation of the skin. From a surgical standpoint he stable for discharge. Consider weaning the steroids. I will see him in the office in 10-14 days. We'll restart the fiber supplement as there is still some watery component to the output.
[2020-07-30 20:47] LABS: Glucose,Whole Blood 287 mg/dL (75-99)
[2020-07-30] MEDS: ATORVASTATIN 80 MG TAB PO SCH (21:43)
[2020-07-31 05:55] LABS: Anisocytosis Slight; Basophils # (A) 0.1 k/uL (0-0.2); Basophils % (A) 0 %; Eosinophils # (A) 0.2 k/uL (0-0.7); Eosinophils % (A) 1 %; HCT 34.3 % (39.0-53.0); HGB 10.8 gm/dL (13.0-17.5); Hypochromasia Moderate; Lymphocytes # (A) 2.1 k/uL (1.0-4.8); Lymphocytes % (A) 11 %; MCH 30.2 pg (25.0-35.0); MCHC 31.5 g/dL (31.0-37.0); MCV 95.9 fL (80.0-100.0); Mean Platelet Volume 7.2; Monocytes # (A) 0.9 k/uL (0-1.0); Monocytes % (A) 5 %; Neutrophils # (A) 15.5 k/uL (1.3-7.7); Neutrophils % (A) 82 %; Platelet Count 232 k/uL (150-450); RBC 3.57 m/uL (4.30-5.90); RDW 16.4 % (11.5-15.5); WBC 18.9 k/uL (3.8-10.6)
[2020-07-31] MEDS: SYMBICORT 160-4.5 MCG INHALER INHALATION PRN (06:56)
[2020-07-31 07:36] LABS: Glucose,Whole Blood 197 mg/dL (75-99)
[2020-07-31] MEDS: PIPERACILLIN-TAZOBACTAM 3.375 GM in SODIUM CHLORIDE 0.9% 100 ML IVPB SCH (09:12)
[2020-07-31] MEDS: FINASTERIDE 5 MG TAB PO SCH (09:15)
[2020-07-31] MEDS: HEPARIN SODIUM,PORCINE 5,000 UNIT/ML 1 ML VIAL SQ SCH (09:15)
[2020-07-31] MEDS: MONTELUKAST 10 MG TAB PO SCH (09:15)
[2020-07-31] MEDS: INSULIN ASPART (NovoLOG) 100 UNIT/ML VIAL SQ SCH ×2 (09:15→13:27)
[2020-07-31] MEDS: ASPIRIN 81 MG PO SCH (09:16)
[2020-07-31] MEDS: predniSONE 10 MG TAB PO SCH (09:16)
[2020-07-31] MEDS: carvediloL 3.125 MG TAB PO SCH (09:16)
[2020-07-31] MEDS: metFORMIN 500 MG TAB PO SCH (09:16)
[2020-07-31] MEDS: CLOPIDOGREL 75 MG TAB PO SCH (09:16)
[2020-07-31] MEDS: PANTOPRAZOLE 40 MG TABLET PO SCH (09:17)
[2020-07-31] MEDS: HYDROPHILIC CREAM 180 GM TUBE TOPICAL SCH (09:18)
[2020-07-31] MEDS: DIPHENOX-ATROP 2.5-0.025 MG 1 EACH TAB PO SCH (10:25)
[2020-07-31 11:51] LABS: Glucose,Whole Blood 294 mg/dL (75-99)
[2020-07-31 12:34] VITALS: BP 110/78; PULSE 101; RESP 18; TEMP 97.9
[2020-07-31] MEDS: SODIUM CHLORIDE 0.9% 1,000 ML IV SCH (13:27)
--- NOTE | 2020-07-31 14:52 | P.DS ---
Providers Date of admission: 07/24/20 01:27 Attending physician: Dallas Francois Consults: 07/24/20 01:24 Consult Physician Routine Consulting Provider: Maria L Lance Consult Reason/Comments: known Do you want consulting provider notified?: Yes Primary care physician: Joaquina Marrero Hospital Course: Diagnoses: Malfunction of the colostomy and its back due to nearby wound and cellulitis pericolostomy Abdominal wall cellulitis and cigarettes discharge, rule out fistula Recent history of Hospital-acquired left lower lobe pneumonia, aspiration pneumonia has been ruled out Recent history of non-STEMI, status post cardiac cath and stent placement to the LAD Recent surgical abdominal wound dehiscence and infection. CT of the abdomen:2 cystic fluid collection in the abdomen, no need for surgical intervention per surgery team Diabetes mellitus with hyperglycemia COPD with no acute exacerbation recent history of Colonic stricture secondary to Crohn's disease status post subtotal colectomy and ileostomy formation Hyperlipidemia Hypertension Transient hypotensive, improved with fluids and steroids History of CVA/TIA with some residual blood test Hearing difficulty Chronic back pain Leukocytosis secondary to steroid effect and reactive from surgery Hospital course: this is a pleasant 69 years old male with past medical history of asthma, CVA/TIA, diabetes mellitus, hearing disorder, hyperlipidemia, hypertension, chronic back pain, Crohn's disease and he is steroid dependent. He was recently discharge by surgical service for colonic stricture secondary to his Crohn's disease, he underwent subtotal colectomy and ileostomy formation. He came back to the hospital again 07/07-07/16 4 non-STEMI and abdominal wound dehiscence around the colostomy back. at that time Cardiac cath showing 95% stenosis of the LAD, and stent was placed by cardiology team , patient was a started on dual antiplatelet therapy with aspirin and Plavix at That time CT of the abdomen:2 cystic fluid collection in the abdomen possible postsurgical abscesses, however surgical team felt no need for I and D as they don't behave like abscesses clinically. He was evaluated by surgical team and infectious disease at that time, no need for surgical intervention, he was treated with Zosyn and discharged on short course of oral antibiotics to rehab. He presents this time with similar problem where the colostomy bag keep exploding and does not fit in a Place, due to the near point wound and surrounding cellulitis and some discharge. Surgical team already evaluated the patient culture obtained from his abdominal surgical wound, growing Klebsiella and E. coli. Patient was treated with IV antibiotics as per infectious disease recommendation with Zosyn. Patient resumed Zosyn and switch to Augmentin upon discharge, there is significant improvement in the abdominal wall cellulitis. Surgery and GI team evaluated the patient, he underwent Ileoscopy by GI team: Normal-appearing small bowel tissue, no mention of fistula. No Crohn's Eventually colostomy back was secured into place with abdominal belt. Patient was cleared for discharge by all consultants including surgery and GI teams Problems and management plan were discussed with the patient and he verbalized understanding and acceptance Patient was found stable and can be discharged home however he needs follow-up as an outpatient. Patient was instructed to follow up with PCP GREGORIO Kunz within one week and patient agrees. Patient also was instructed to follow up with Dr. lance the general surgeon 10-14 days and he agrees Gen: patient is a AAOx3, no distress CVS: S1-S2, RRR, no murmur Lungs: B/L CTA, no wheezing -Abdomen: soft, no distention, no tenderness, positive bowel sounds. Colostomy bag is in place currently, with a small surrounding area of cellulitis is significantly improved and now is faint pink in color, surgical wound dehiscence with some discharge Extremity: no leg edema or induration Time spent more than 35 minutes Patient Condition at Discharge: Fair Plan - Discharge Summary Discharge Rx Participant: No New Discharge Prescriptions: No Action Acetaminophen Tab [Tylenol] 650 mg PO Q6H PRN PRN Reason: Fever And/ Or Pain Multivit-Min/FA/Lycopen/Lutein [Centrum Silver Tablet] 1 tab PO DAILY Finasteride [Proscar] 5 mg PO DAILY Budesonide-Formot 160-4.5 Mcg [Symbicort 160-4.5 Mcg Inhaler] 2 puff INHALATION RT-BID PRN PRN Reason: Shortness Of Breath Diphenoxylate HCl/Atropine [Lomotil 2.5-0.025 mg Tablet] 1 tab PO TID 30 Days #90 tab predniSONE 15 mg PO DIRECTED carvediloL [Coreg] 3.125 mg PO BID Aspirin 81 mg PO DAILY chew Atorvastatin [Lipitor] 80 mg PO HS #90 tab Clopidogrel [Plavix] 75 mg PO DAILY #90 tab calcium polycarbophiL [Fibercon] 625 mg PO TID #60 tab Montelukast [Singulair] 10 mg PO DAILY #30 tab Amoxicillin/Potassium Clav [Augmentin 875-125 Tablet] 1 tab PO Q12HR 7 Days #14 tab Heparin Sodium,Porcine [Heparin Sodium] 5,000 unit SQ Q12HR vial Pantoprazole Sodium [Protonix] 40 mg PO DAILY #30 tablet. INSULIN LISPRO (HumaLOG) [humaLOG] See Protocol SQ ACHS lisinopriL [Zestril] 5 mg PO DAILY metFORMIN HCL [Glucophage] 500 mg PO AC-BID Nitroglycerin Sl Tabs [Nitrostat] 0.4 mg SL Q5M PRN PRN Reason: Chest Pain Nystatin 1 applic TOPICAL DAILY Nystatin 1 applic TOPICAL DAILY PRN PRN Reason: BRIEF CHANGE predniSONE See Taper PO DAILY Ondansetron [Zofran] 4 mg PO Q8H PRN PRN Reason: Nausea And Vomiting Discharge Medication List Acetaminophen Tab [Tylenol] 650 mg PO Q6H PRN 02/14/19 [History] Budesonide-Formot 160-4.5 Mcg [Symbicort 160-4.5 Mcg Inhaler] 2 puff INHALATION RT-BID PRN 06/11/20 [History] Finasteride [Proscar] 5 mg PO DAILY 06/11/20 [History] Multivit-Min/FA/Lycopen/Lutein [Centrum Silver Tablet] 1 tab PO DAILY 06/11/20 [History] Diphenoxylate HCl/Atropine [Lomotil 2.5-0.025 mg Tablet] 1 tab PO TID 30 Days #90 tab 07/02/20 [Rx] carvediloL [Coreg] 3.125 mg PO BID 07/07/20 [History] predniSONE 15 mg PO DIRECTED 07/07/20 [History] Aspirin 81 mg PO DAILY chew 07/10/20 [Rx] Atorvastatin [Lipitor] 80 mg PO HS #90 tab 07/10/20 [Rx] Clopidogrel [Plavix] 75 mg PO DAILY #90 tab 07/10/20 [Rx] Montelukast [Singulair] 10 mg PO DAILY #30 tab 07/15/20 [Rx] calcium polycarbophiL [Fibercon] 625 mg PO TID #60 tab 07/15/20 [Rx] Amoxicillin/Potassium Clav [Augmentin 875-125 Tablet] 1 tab PO Q12HR 7 Days #14 tab 07/16/20 [Rx] Heparin Sodium,Porcine [Heparin Sodium] 5,000 unit SQ Q12HR vial 07/16/20 [Rx] Pantoprazole Sodium [Protonix] 40 mg PO DAILY #30 tablet. 07/16/20 [Rx] INSULIN LISPRO (HumaLOG) [humaLOG] See Protocol SQ ACHS 07/24/20 [History] Nitroglycerin Sl Tabs [Nitrostat] 0.4 mg SL Q5M PRN 07/24/20 [History] Nystatin 1 applic TOPICAL DAILY 07/24/20 [History] Nystatin 1 applic TOPICAL DAILY PRN 07/24/20 [History] Ondansetron [Zofran] 4 mg PO Q8H PRN 07/24/20 [History] lisinopriL [Zestril] 5 mg PO DAILY 07/24/20 [History] metFORMIN HCL [Glucophage] 500 mg PO AC-BID 07/24/20 [History] predniSONE See Taper PO DAILY 07/24/20 [History] Follow up Appointment(s)/Referral(s): Joaquina Marrero, PAC [Primary Care Provider] - 1-2 days Maria L Lance DO [Doctor of Osteopathic Medicine] - 1 Week [facility], [NON-STAFF] - 1 Week
== END 2020-07-31 16:46 | DRG 393 ==
LOC: EC 00:55 → 6NMEDSUR 01:27
PROVIDERS: ADMIT Hospitalist; ATTEND Hospitalist
PROC: 0DBB8ZX Excision of Ileum, Via Natural or Artificial Opening Endoscopic, Diagnostic (ICD-10-PCS; principal; 2020-07-28 08:15)
DX: K94.02 Colostomy infection (principal); I21.4 Non-ST elevation (NSTEMI) myocardial infarction; K50.10 Crohn's disease of large intestine without complications; L03.311 Cellulitis of abdominal wall; T81.31XA Disruption of external operation (surgical) wound, not elsewhere classified, initial encounter; K63.2 Fistula of intestine; H91.90 Unspecified hearing loss, unspecified ear; E78.5 Hyperlipidemia, unspecified; E11.65 Type 2 diabetes mellitus with hyperglycemia; G89.29 Other chronic pain; I10 Essential (primary) hypertension; I25.10 Atherosclerotic heart disease of native coronary artery without angina pectoris; Z20.828 Contact with and (suspected) exposure to other viral communicable diseases; N40.0 Benign prostatic hyperplasia without lower urinary tract symptoms; T38.0X5A Adverse effect of glucocorticoids and synthetic analogues, initial encounter; M54.9 Dorsalgia, unspecified; L25.3 Unspecified contact dermatitis due to other chemical products; J44.9 Chronic obstructive pulmonary disease, unspecified; Z79.4 Long term (current) use of insulin; Z79.51 Long term (current) use of inhaled steroids; Z79.02 Long term (current) use of antithrombotics/antiplatelets; Z79.52 Long term (current) use of systemic steroids; Z79.82 Long term (current) use of aspirin; Z79.899 Other long term (current) drug therapy; Z82.49 Family history of ischemic heart disease and other diseases of the circulatory system; Z83.3 Family history of diabetes mellitus; Z87.442 Personal history of urinary calculi; Z86.73 Personal history of transient ischemic attack (TIA), and cerebral infarction without residual deficits; Z87.891 Personal history of nicotine dependence; Z90.49 Acquired absence of other specified parts of digestive tract; Z90.89 Acquired absence of other organs; Z86.14 Personal history of Methicillin resistant Staphylococcus aureus infection
CPT/HCPCS: 44382; 80048; 83735; 84100; 84145; 85025; 87635; 88305; 94640; 96374; 99284

== ENCOUNTER 2020-09-02 13:44 | Inpatient (IN) | payer OTHER, MEDICARE ==
[2020-09-02] MEDS ORDERED: PIPERACILLIN-TAZOBACTAM 3.375 GM in SODIUM CHLORIDE 0.9% 100 ML IVPB STA (14:19)
[2020-09-02] MEDS ORDERED: VANCOMYCIN IV PER PHARMACY 1 EACH MISC MISCELLANE PRN (14:22)
[2020-09-02] MEDS ORDERED: FLUCONAZOLE IVPB STA (14:36)
[2020-09-02] MEDS ORDERED: SALINE IVPB STA (14:36)
[2020-09-02] MEDS ORDERED: NACL ISO OSM IVPB STA (14:36)
[2020-09-02] MEDS ORDERED: FLUCONAZOLE IN NACL,ISO-OSM 400 MG in SALINE 1 200ML.BAG IVPB STA (14:39)
[2020-09-02] MEDS: ERYTHROMYCIN 5 MG/GM OPHTH OINT 3.5 GM TUBE LEFT EYE SCH ×3 (14:47→23:20)
[2020-09-02] MEDS: SODIUM CHLORIDE 0.9% 1,000 ML IV SCH ×3 (14:51→23:19)
[2020-09-02] MEDS: SODIUM CHLORIDE 0.9% 500 ML 500 ML IV SCH ×2 (14:51→16:03)
[2020-09-02] MEDS ORDERED: VANCOMYCIN 2,000 MG in SODIUM CHLORIDE 0.9% 500 ML 500 ML IVPB ONE (15:00)
[2020-09-02 15:18] LABS: Anisocytosis Slight; Basophils # (A) 0.1 k/uL (0-0.2); Basophils % (A) 0 %; Eosinophils % (A) 0 %; Hypochromasia Marked; Lymphocytes # (A) 0.7 k/uL (1.0-4.8); Lymphocytes % (A) 3 %; MCH 29.4 pg (25.0-35.0); MCHC 31.5 g/dL (31.0-37.0); MCV 93.2 fL (80.0-100.0); Mean Platelet Volume 8.6; Monocytes # (A) 1.1 k/uL (0-1.0); Monocytes % (A) 5 %; Neutrophils # (A) 22.1 k/uL (1.3-7.7); Neutrophils % (A) 92 %; Platelet Count 331 k/uL (150-450); RBC 4.82 m/uL (4.30-5.90); RDW 16.6 % (11.5-15.5); WBC 24.1 k/uL (3.8-10.6)
[2020-09-02 15:19] LABS: Appearance,Urine Clear (Clear); Bilirubin,Urine Negative (Negative); Blood,Urine Negative (Negative); Color,Urine Light Yellow; Glucose,Urine (UA) 4+ (Negative); INR 0.9 (<1.2); Ketones,Urine Negative (Negative); Leukocyte Esterase,Urine Small (Negative); Nitrite,Urine Negative (Negative); PH, Urine 5.5 (5.0-8.0); Protein,Urine Negative (Negative); Prothrombin Time 9.4 sec (9.0-12.0); RBC,Urine 3 /hpf (0-5); Specific Gravity,Urine 1.033 (1.001-1.035); Squamous Epithelial Cell,Urine <1 /hpf (0-4); Urobilinogen,Urine <2.0 mg/dL (<2.0); WBC,Urine 2 /hpf (0-5)
[2020-09-02 15:21] LABS: Partial Thromboplastin Time 21.4 sec (22.0-30.0)
[2020-09-02 15:25] LABS: ALT 43 U/L (4-49); AST 30 U/L (17-59); African American GFR (CKD) >90 (>60 ml/min/1.73 sqM); Albumin 3.1 g/dL (3.5-5.0); Alkaline Phosphatase 209 U/L (38-126); Anion Gap 10 mmol/L; Blood Urea Nitrogen 13 mg/dL (9-20); Calcium 9.6 mg/dL (8.4-10.2); Carbon Dioxide 26 mmol/L (22-30); Chloride 92 mmol/L (98-107); Non-African American GFR(CKD) >90 (>60 ml/min/1.73 sqM); Sodium 128 mmol/L (137-145); Total Bilirubin 0.7 mg/dL (0.2-1.3); Total Protein 6.4 g/dL (6.3-8.2)
[2020-09-02 15:32] LABS: HGB 14.2 gm/dL (13.0-17.5)
[2020-09-02] MEDS ORDERED: SODIUM CHLORIDE 0.9% 1,000 ML IV ONE (15:34)
[2020-09-02] MEDS ORDERED: fentaNYL (PF) 50 MCG/ML 2 ML AMP IVP PRN ×2 (15:44→15:47)
--- NOTE | 2020-09-02 15:45 | XR ---
EXAMINATION TYPE: XR pelvis AP view DATE OF EXAM: 09/02/2020 COMPARISON: NONE HISTORY: Pain The osseous structures are intact and the joint spaces are preserved. No acute fracture is seen. Vi sualized bowel gas pattern is nonspecific. Postsurgical change involving the right hip. Diffuse oste openia. Vascular calcifications. Ostomy site suggested overlying the right lower quadrant. Arthropath y of the hips. Hypertrophic change of the lower lumbar spine. Correlate for previous surgery at L5-S1 . Spina bifida occulta of the sacrum. IMPRESSION: 1. No acute fracture. If there is concern for soft tissue emphysema correlate with CT pelvis.
[2020-09-02 15:53] LABS: Glucose 713 mg/dL (74-99)
[2020-09-02] MEDS ORDERED: INSULIN REGULAR 100 UNIT/ML VIAL IV ONE (15:55)
[2020-09-02] MEDS ORDERED: INSULIN REGULAR BOLUS (FROM DRIP BAG) IV ONE (16:05)
[2020-09-02] MEDS ORDERED: INSULIN REGULAR 100 UNIT in SODIUM CHLORIDE 0.9% 100 ML IV SCH (16:15)
--- NOTE | 2020-09-02 16:17 | ED ---
General Adult HPI - General Source: patient, EMS, RN notes reviewed, old records reviewed Mode of arrival: EMS Limitations: physical limitation <Mario Mckenna - Last Filed: 09/02/20 17:30> <Cassy Hernandez - Last Filed: 09/06/20 00:58> - General Chief complaint: Skin/Abscess/Foreign Body Stated complaint: High Blood Sugar Time Seen by Provider: 09/02/20 14:08 - History of Present Illness Initial comments: 69-year-old male patient to ED for evaluation of his back. Patient reports that he believes he has a fungal infection which has been getting worse for the last week or so. He is having lots of pain and erythema in the posterior thorax region. This does extend down to his intergluteal cleft as well as suprapubic pubic region. He also reports he has been having some erythema and last matting to his left eye. Denies any other areas of pain or difficulty breathing. Denies nausea vomiting or diarrhea. Does report high blood sugar at home. Is a diabetic. Systemic: Pt denies fatigue, fever/chills, rash. Pt denies weakness, night sweats, weight loss. Neuro: Pt denies headache, visual disturbances, syncope or pre-syncope. HEENT: Pt denies ocular discharge or irritation, otalgia, rhinorrhea, pharyngitis or notable lymphadenopathy. Cardiopulmonary: Pt denies chest pain, SOB, heart palpitations, dyspnea on exertion. Abdominal/GI: Pt denies abdominal pain, n/v/d. : Pt denies dysuria, burning w/ urination, frequency/urgency. Denies new onset urinary or bowel incontinence. MSK: Pt denies myalgia, loss of strength or function in extremities. Neuro: Pt denies new onset weakness, paresthesias. (Mario Mckenna) - Related Data Home Medications Medication Instructions Recorded Confirmed Acetaminophen Tab [Tylenol] 650 mg PO Q6H PRN 02/14/19 09/02/20 Budesonide-Formot 160-4.5 Mcg 2 puff INHALATION RT-BID PRN 06/11/20 09/02/20 [Symbicort 160-4.5 Mcg Inhaler] Finasteride [Proscar] 5 mg PO DAILY 06/11/20 09/02/20 Nitroglycerin Sl Tabs [Nitrostat] 0.4 mg SL Q5M PRN 07/24/20 09/02/20 metFORMIN HCL [Glucophage] 500 mg PO AC-BID 07/24/20 09/02/20 Aspirin EC [Ecotrin] 325 mg PO DAILY 09/02/20 09/02/20 Lisinopril [Zestril] 10 mg PO DAILY 09/02/20 09/02/20 Naproxen Sodium [Aleve] 220 mg PO DAILY 09/02/20 09/02/20 calcium polycarbophiL [Fibercon] 625 mg PO DAILY 09/02/20 09/02/20 glyBURIDE [Diabeta] 5 mg PO AC-BID 09/02/20 09/02/20 predniSONE 5 mg PO TID 09/02/20 09/02/20 Previous Rx's Medication Instructions Recorded Diphenoxylate HCl/Atropine 1 tab PO TID 30 Days #90 tab 07/02/20 [Lomotil 2.5-0.025 mg Tablet] Atorvastatin [Lipitor] 80 mg PO HS #90 tab 07/10/20 Clopidogrel [Plavix] 75 mg PO DAILY #90 tab 07/10/20 Pantoprazole Sodium [Protonix] 40 mg PO DAILY #30 tablet. 07/16/20 Allergies Allergy/AdvReac Type Severity Reaction Status Date / Time No Known Allergies Allergy Verified 09/02/20 15:11 Review of Systems ROS Other: All systems not noted in ROS Statement are negative. <Mario Mckenna - Last Filed: 09/02/20 17:30> ROS Other: All systems not noted in ROS Statement are negative. <Cassy Hernandez - Last Filed: 09/06/20 00:58> ROS Statement: Those systems with pertinent positive or pertinent negative responses have been documented in the HPI. 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 History of Any Multi-Drug Resistant Organisms: C-DIFF, MRSA Date of last positivie culture/infection: January 2015 (At [facility] per patient) MDRO Source:: Right Ankle and Back (per patient) Past Surgical History: Adenoidectomy, Bowel Resection, Orthopedic Surgery, Tonsillectomy Additional Past Surgical History / Comment(s): 01/2015 Laminectomy, discectomy with decompression L5-S1, I&D epidural abscess L5-S1 (STATED HAD MULTIPLE BX- BENIGN)and aspiration R ankle, 02/2015 I&D L5-S1 at [facility], Yearly colonoscopy . left wrist surgically repaired after fx-PLATE/SCREW. RT HIP TEVIN/SCREWS. Past Anesthesia/Blood Transfusion Reactions: No Reported Reaction Additional Past Anesthesia/Blood Transfusion Reaction / Comment(s): Pt states he recieved blood 02/2015 at [facility] without reaction. Past Psychological History: No Psychological Hx Reported Smoking Status: Former smoker, Never smoker Past Alcohol Use History: None Reported Past Drug Use History: None Reported - Past Family History Father Family Medical History: Myocardial Infarction ([place]) Additional Family Medical History / Comment(s): Father of massive [place]. Mother Family Medical History: Diabetes Mellitus <Mario Mckenna - Last Filed: 09/02/20 17:30> General Exam Limitations: physical limitation <Mario Mckenna - Last Filed: 09/02/20 17:30> - General Exam Comments Initial Comments: Constitutional: NAD, AOX3, Pt has pleasant affect. HEENT: NC/AT, trachea midline, neck supple, no lymphadenopathy. External ears appear normal, without discharge. Mucous membranes moist. Eyes PERRLA, EOM intact. There is no scleral icterus. No pallor noted. Cardiopulmonary: RRR, no murmurs, rubs or gallops, no JVD noted. Lungs CTAB in anterior and posterior dhillon. No peripheral edema. Abdominal exam: Abdomen soft and non-distended. Abdomen non-tender to palpation in all 4 quadrants. Bowel sounds active in LLQ. No hepatosplenomegaly. No ecchymosis Neuro: CN II-XII grossly intact. No nuchal rigidity. No raccon eyes, no middleton sign, no hemotympanum. No cervical spinal tenderness. MSK: Full active ROM in upper and lower extremities, 5/5 stregnth. Cellulitis posterior thorax region extending down to the intergluteal cleft, suprapubic region. Mildly erythematous scrotum. No evidence of abscess or Adeel's gangrene. (Mario Mckenna) Course Vital Signs 09/02/20 09/02/20 09/02/20 13:46 14:45 15:00 Temperature 98 F Pulse Rate 126 H 122 H Respiratory 18 20 18 Rate Blood Pressure 101/77 97/71 88/70 O2 Sat by Pulse 95 94 L 97 Oximetry 09/02/20 09/02/20 09/02/20 16:29 16:59 18:15 Temperature Pulse Rate 112 H 109 H 99 Respiratory 18 18 18 Rate Blood Pressure 99/77 104/78 116/79 O2 Sat by Pulse 97 97 97 Oximetry 09/02/20 09/02/20 19:26 21:27 Temperature 98 F Pulse Rate 80 80 Respiratory 18 18 Rate Blood Pressure 114/77 114/77 O2 Sat by Pulse 97 97 Oximetry Medical Decision Making - Lab Data Result diagrams: 09/02/20 14:45 09/02/20 14:45 <Mario Mckenna - Last Filed: 09/02/20 17:30> - Lab Data Result diagrams: 09/05/20 08:48 09/05/20 08:48 <Cassy Hernandez - Last Filed: 09/06/20 00:58> - Medical Decision Making 69-year-old male patient to ED for evaluation of his back. Patient reports that he believes he has a fungal infection which has been getting worse for the last week or so. He is having lots of pain and erythema in the posterior thorax region. This does extend down to his intergluteal cleft as well as suprapubic pubic region. He also reports he has been having some erythema and last matting to his left eye. Denies any other areas of pain or difficulty breathing. Denies nausea vomiting or diarrhea. Does report high blood sugar at home. Is a diabetic. Pt vital signs do display mild hypotension and tachycardia. Improvement with fluid bolus. Lab investigations display leukocytosis of 24. Pseudo-natremia, glucose 713, lactic acid 4.0. Anion gap is 10. 4+ glucose no ketones in urine. EKG displayed sinus tachycardia. Patient initiated on broad- spectrum antibiotics Rocephin and vancomycin. Fluconazole. Fluid bolus with maintenance as well as insulin drip. Patient will be admitted to telemetry for further evaluation. Case discussed in depth with Dr. Hernandez. (Mario Mckenna) I was available for consultation in the emergency department. The history and physical exam were done by the midlevel provider. I was consulted for this griselda ents care. I reviewed the case with the midlevel provider and based on their presentation of the patient, I agree with the assessment, medical decision making and plan of care as documented. Chart was dictated using plista dictation software. Attempts were made to correct any dictation errors however some typographical errors may persist. Patient was seen during a national state of emergency due to the Covid-19 pandemic. Evaluated the patient myself. Agreed patient required hospital admission. Physical exam demonstrates red rash involving back and groin. Patient will be covered with antifunals and antibiotics (Cassy Hernandez) - Lab Data Lab Results 09/02/20 09/02/20 09/02/20 Range/Units 14:45 14:45 14:45 WBC 24.1 H (3.8-10.6) k/uL RBC 4.82 (4.30-5.90) m/uL Hgb 14.2 D (13.0-17.5) gm/dL Hct 45.0 (39.0-53.0) % MCV 93.2 (80.0-100.0) fL MCH 29.4 (25.0-35.0) pg MCHC 31.5 (31.0-37.0) g/dL RDW 16.6 H (11.5-15.5) % Plt Count 331 (150-450) k/uL MPV 8.6 Neutrophils % 92 % Lymphocytes % 3 % Monocytes % 5 % Eosinophils % 0 % Basophils % 0 % Neutrophils # 22.1 H (1.3-7.7) k/uL Lymphocytes # 0.7 L (1.0-4.8) k/uL Monocytes # 1.1 H (0-1.0) k/uL Eosinophils # 0.0 (0-0.7) k/uL Basophils # 0.1 (0-0.2) k/uL Hypochromasia Marked Anisocytosis Slight PT 9.4 (9.0-12.0) sec INR 0.9 (<1.2) APTT 21.4 L (22.0-30.0) sec Sodium (137-145) mmol/L Potassium (3.5-5.1) mmol/L Chloride (98-107) mmol/L Carbon Dioxide (22-30) mmol/L Anion Gap mmol/L BUN (9-20) mg/dL Creatinine (0.66-1.25) mg/dL Est GFR (CKD-EPI)AfAm (>60 ml/min/1.73 sqM) Est GFR (CKD-EPI)NonAf (>60 ml/min/1.73 sqM) Glucose (74-99) mg/dL Lactic Ac Sepsis Rflx Plasma Lactic Acid Hernán (0.7-2.0) mmol/L Calcium (8.4-10.2) mg/dL Total Bilirubin (0.2-1.3) mg/dL AST (17-59) U/L ALT (4-49) U/L Alkaline Phosphatase (38-126) U/L Total Protein (6.3-8.2) g/dL Albumin (3.5-5.0) g/dL Urine Color Light Yellow Urine Appearance Clear (Clear) Urine pH 5.5 (5.0-8.0) Ur Specific Gilman 1.033 (1.001-1.035) Urine Protein Negative (Negative) Urine Glucose (UA) 4+ H (Negative) Urine Ketones Negative (Negative) Urine Blood Negative (Negative) Urine Nitrite Negative (Negative) Urine Bilirubin Negative (Negative) Urine Urobilinogen <2.0 (<2.0) mg/dL Ur Leukocyte Esterase Small H (Negative) Urine RBC 3 (0-5) /hpf Urine WBC 2 (0-5) /hpf Ur Squamous Epith Cells <1 (0-4) /hpf Acetone, Qual (Negative) 09/02/20 09/02/20 09/02/20 Range/Units 14:45 14:45 15:26 WBC (3.8-10.6) k/uL RBC (4.30-5.90) m/uL Hgb (13.0-17.5) gm/dL Hct (39.0-53.0) % MCV (80.0-100.0) fL MCH (25.0-35.0) pg MCHC (31.0-37.0) g/dL RDW (11.5-15.5) % Plt Count (150-450) k/uL MPV Neutrophils % % Lymphocytes % % Monocytes % % Eosinophils % % Basophils % % Neutrophils # (1.3-7.7) k/uL Lymphocytes # (1.0-4.8) k/uL Monocytes # (0-1.0) k/uL Eosinophils # (0-0.7) k/uL Basophils # (0-0.2) k/uL Hypochromasia Anisocytosis PT (9.0-12.0) sec INR (<1.2) APTT (22.0-30.0) sec Sodium 128 L (137-145) mmol/L Potassium 5.0 (3.5-5.1) mmol/L Chloride 92 L (98-107) mmol/L Carbon Dioxide 26 (22-30) mmol/L Anion Gap 10 mmol/L BUN 13 (9-20) mg/dL Creatinine 0.76 (0.66-1.25) mg/dL Est GFR (CKD-EPI)AfAm >90 (>60 ml/min/1.73 sqM) Est GFR (CKD-EPI)NonAf >90 (>60 ml/min/1.73 sqM) Glucose 713 H* (74-99) mg/dL Lactic Ac Sepsis Rflx Y Plasma Lactic Acid Hernán 4.0 H* (0.7-2.0) mmol/L Calcium 9.6 (8.4-10.2) mg/dL Total Bilirubin 0.7 (0.2-1.3) mg/dL AST 30 (17-59) U/L ALT 43 (4-49) U/L Alkaline Phosphatase 209 H (38-126) U/L Total Protein 6.4 (6.3-8.2) g/dL Albumin 3.1 L (3.5-5.0) g/dL Urine Color Urine Appearance (Clear) Urine pH (5.0-8.0) Ur Specific Gilman (1.001-1.035) Urine Protein (Negative) Urine Glucose (UA) (Negative) Urine Ketones (Negative) Urine Blood (Negative) Urine Nitrite (Negative) Urine Bilirubin (Negative) Urine Urobilinogen (<2.0) mg/dL Ur Leukocyte Esterase (Negative) Urine RBC (0-5) /hpf Urine WBC (0-5) /hpf Ur Squamous Epith Cells (0-4) /hpf Acetone, Qual Negative (Negative) Disposition Is patient prescribed a controlled substance at d/c from ED?: No <Mario Mckenna - Last Filed: 09/02/20 17:30> <Cassy Hernandez - Last Filed: 09/06/20 00:58> Clinical Impression: Hyperosmolar hyperglycemic state (HHS), Cellulitis, Sepsis Disposition: ADMITTED IP TO THIS HOSP Condition: Serious
[2020-09-02] MEDS ORDERED: NALOXONE 0.4 MG/ML 1 ML VIAL IV PRN (16:18)
[2020-09-02 17:32] LABS: Glucose,Whole Blood >600 mg/dL (75-99)
[2020-09-02 18:44] LABS: Glucose,Whole Blood 231 mg/dL (75-99)
[2020-09-02] MEDS ORDERED: NITROGLYCERIN SL TABS 0.4 MG TAB SUBLINGUAL PRN (18:54)
[2020-09-02] MEDS ORDERED: HYDROmorphone 1 MG/ML 1 ML SYRINGE IVP STA (19:12)
[2020-09-02 20:17] LABS: African American GFR (CKD) >90 (>60 ml/min/1.73 sqM); Anion Gap 4 mmol/L; Blood Urea Nitrogen 12 mg/dL (9-20); Carbon Dioxide 25 mmol/L (22-30); Chloride 105 mmol/L (98-107); Glucose 182 mg/dL (74-99); Non-African American GFR(CKD) >90 (>60 ml/min/1.73 sqM); Phosphorus 3.5 mg/dL (2.5-4.5); Potassium 4.2 mmol/L (3.5-5.1); Sodium 134 mmol/L (137-145)
[2020-09-02 20:23] LABS: Glucose,Whole Blood 239 mg/dL (75-99)
[2020-09-02] MEDS: ACETAMINOPHEN TAB 325 MG TAB PO PRN (21:19)
[2020-09-02] MEDS: MORPHINE SULFATE 2 MG/ML SYRINGE IV PRN (21:19)
[2020-09-02] MEDS: HEPARIN SODIUM,PORCINE 5,000 UNIT/ML 1 ML VIAL SQ SCH (21:19)
[2020-09-02] MEDS: ATORVASTATIN 80 MG TAB PO SCH (21:19)
[2020-09-02 23:29] LABS: African American GFR (CKD) >90 (>60 ml/min/1.73 sqM); Anion Gap 2 mmol/L; Blood Urea Nitrogen 13 mg/dL (9-20); Carbon Dioxide 27 mmol/L (22-30); Chloride 104 mmol/L (98-107); Glucose 300 mg/dL (74-99); Non-African American GFR(CKD) >90 (>60 ml/min/1.73 sqM); Phosphorus 3.5 mg/dL (2.5-4.5); Potassium 4.4 mmol/L (3.5-5.1); Sodium 133 mmol/L (137-145)
[2020-09-03] MEDS: MORPHINE SULFATE 2 MG/ML SYRINGE IV PRN ×2 (02:50→08:57)
[2020-09-03] MEDS: SODIUM CHLORIDE 0.9% 1,000 ML IV SCH ×5 (02:51→15:17)
[2020-09-03] MEDS: VANCOMYCIN 1,750 MG in SODIUM CHLORIDE 0.9% 500 ML 500 ML IVPB SCH ×2 (04:45→17:47)
[2020-09-03 04:51] LABS: Anisocytosis Slight; Basophils % (A) 0 %; Eosinophils # (A) 0.2 k/uL (0-0.7); Eosinophils % (A) 2 %; HCT 35.4 % (39.0-53.0); Hypochromasia Slight; Lymphocytes % (A) 17 %; MCH 27.4 pg (25.0-35.0); MCHC 30.4 g/dL (31.0-37.0); MCV 90.1 fL (80.0-100.0); Mean Platelet Volume 7.5; Monocytes # (A) 0.7 k/uL (0-1.0); Monocytes % (A) 5 %; Neutrophils % (A) 74 %; Platelet Count 259 k/uL (150-450); RBC 3.93 m/uL (4.30-5.90); RDW 17.1 % (11.5-15.5)
[2020-09-03 04:54] LABS: HGB 10.8 gm/dL (13.0-17.5)
[2020-09-03 06:27] LABS: Glucose,Whole Blood 175 mg/dL (75-99)
[2020-09-03] MEDS: metFORMIN 500 MG TAB PO SCH ×2 (06:33→17:46)
[2020-09-03] MEDS: PANTOPRAZOLE 40 MG TABLET PO SCH (06:33)
[2020-09-03] MEDS: INSULIN ASPART (NovoLOG) 100 UNIT/ML VIAL SQ SCH ×4 (06:34→22:00)
[2020-09-03] MEDS: glipiZIDE 10 MG TAB PO SCH ×2 (06:34→17:46)
[2020-09-03] MEDS: ERYTHROMYCIN 5 MG/GM OPHTH OINT 3.5 GM TUBE LEFT EYE SCH ×3 (06:34→17:48)
[2020-09-03] MEDS: ASPIRIN 325 MG TAB PO SCH (08:56)
[2020-09-03] MEDS: AMPICILLIN-SULBACTAM 3 GM in SODIUM CHLORIDE 0.9% 100 ML IVPB SCH ×3 (08:56→20:05)
[2020-09-03] MEDS: FINASTERIDE 5 MG TAB PO SCH (08:57)
[2020-09-03] MEDS: HEPARIN SODIUM,PORCINE 5,000 UNIT/ML 1 ML VIAL SQ SCH ×2 (08:57→21:11)
[2020-09-03] MEDS: CLOPIDOGREL 75 MG TAB PO SCH (08:57)
[2020-09-03] MEDS: lisinopriL 10 MG TAB PO SCH (08:57)
--- NOTE | 2020-09-03 10:17 | P.HPIM ---
History of Present Illness This is a pleasant 69 years old male with multiple medical problems as below. He follows up with the [place] [facility]. He was admitted with cellulitis/rash of the back. Patient states that for 2 days he started developing rash with excoriated skin from the upper back down to his buttock it is hurting him to much that he refused to roll over to look at it. His visiting nurse told him its fungal infection. Also he has intertriginous inguinal rash with satellite pattern suspicious for fungal infection. Patient says that he was compliant with his diabetic medication including the glipizide and metformin. He denies chest pain or dyspnea, no change in urine habits or dysuria. No diarrhea through his colostomy back. The skin around his previous abdominal incision is closed and healed. Patient afebrile and vitals are stable. Showing leukocytosis of 20 4.1K coming down to 12.0 K. BMP is unremarkable. Glucose was elevated 713 on admission with high lactic acid of 4.0 came down to 1.8. His sugar is better controlled now. Liver enzymes are not elevated. INR is normal. Urinalysis showed no infection but glucosuria. Acetone is negative. Pelvic x-ray showing no acute fracture. EKG showing sinus tachycardia at [address]-T changes. In the emergency room he got 1 dose of ceftriaxone, fluconazole and Zosyn. And then continued with IV vancomycin. Also he got 1 L of normal saline Review of Systems CONSTITUTIONAL: No fever, no malaise, no fatigue. HEENT: No recent visual problems or hearing problems. Denied any sore throat. CARDIOVASCULAR: No orthopnea, PND, no palpitations, no syncope. PULMONARY: No shortness of breath, no cough, no hemoptysis. GASTROINTESTINAL: No diarrhea, no nausea, no vomiting, no abdominal pain. Normoactive bowel sounds. NEUROLOGICAL: No headaches, no weakness, no numbness. HEMATOLOGICAL: Denies any bleeding or petechiae. GENITOURINARY: Denies any burning micturition, frequency, or urgency. MUSCULOSKELETAL/RHEUMATOLOGICAL: Denies any joint pain, swelling, or any muscle pain. ENDOCRINE: Denies any polyuria or polydipsia. 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 History of Any Multi-Drug Resistant Organisms: C-DIFF, MRSA Date of last positivie culture/infection: January 2015 (At [facility], [place] per patient) MDRO Source:: Right Ankle and Back (per patient) Past Surgical History: Adenoidectomy, Bowel Resection, Orthopedic Surgery, Tonsillectomy Additional Past Surgical History / Comment(s): 01/2015 Laminectomy, discectomy with decompression L5-S1, I&D epidural abscess L5-S1 (STATED HAD MULTIPLE BX- BENIGN)and aspiration R ankle, 02/2015 I&D L5-S1 at [facility] [place], Yearly colonoscopy . left wrist surgically repaired after fx-PLATE/SCREW. RT HIP TEVIN/SCREWS. Past Anesthesia/Blood Transfusion Reactions: No Reported Reaction Additional Past Anesthesia/Blood Transfusion Reaction / Comment(s): Pt states he recieved blood 02/2015 at [facility] without reaction. Past Psychological History: No Psychological Hx Reported Additional Psychological History / Comment(s): Pt resideswith daughter. Drives, has dogs. Smoking Status: Former smoker Past Alcohol Use History: None Reported Additional Past Alcohol Use History / Comment(s): Patient has a history of smoking marijuana half ounce per day and quit in 1998. He denies any alcohol use SINCE 1975. Past Drug Use History: None Reported Additional Drug Use History / Comment(s): No current use. - Past Family History Father Family Medical History: Myocardial Infarction (MS) Additional Family Medical History / Comment(s): Father of massive MS. Mother Family Medical History: Diabetes Mellitus Medications and Allergies Home Medications Medication Instructions Recorded Confirmed Type Acetaminophen Tab [Tylenol] 650 mg PO Q6H PRN 02/14/19 09/02/20 History Budesonide-Formot 160-4.5 Mcg 2 puff INHALATION RT-BID PRN 06/11/20 09/02/20 History [Symbicort 160-4.5 Mcg Inhaler] Finasteride [Proscar] 5 mg PO DAILY 06/11/20 09/02/20 History Diphenoxylate HCl/Atropine 1 tab PO TID 30 Days #90 tab 07/02/20 09/02/20 Rx [Lomotil 2.5-0.025 mg Tablet] Atorvastatin [Lipitor] 80 mg PO HS #90 tab 07/10/20 09/02/20 Rx Clopidogrel [Plavix] 75 mg PO DAILY #90 tab 07/10/20 09/02/20 Rx Pantoprazole Sodium [Protonix] 40 mg PO DAILY #30 tablet. 07/16/20 09/02/20 Rx Nitroglycerin Sl Tabs [Nitrostat] 0.4 mg SL Q5M PRN 07/24/20 09/02/20 History metFORMIN HCL [Glucophage] 500 mg PO AC-BID 07/24/20 09/02/20 History Aspirin EC [Ecotrin] 325 mg PO DAILY 09/02/20 09/02/20 History Lisinopril [Zestril] 10 mg PO DAILY 09/02/20 09/02/20 History Naproxen Sodium [Aleve] 220 mg PO DAILY 09/02/20 09/02/20 History calcium polycarbophiL [Fibercon] 625 mg PO DAILY 09/02/20 09/02/20 History glyBURIDE [Diabeta] 5 mg PO AC-BID 09/02/20 09/02/20 History predniSONE 5 mg PO TID 09/02/20 09/02/20 History Allergies Allergy/AdvReac Type Severity Reaction Status Date / Time No Known Allergies Allergy Verified 09/02/20 15:11 Physical Exam Vitals: Vital Signs Temp Pulse Pulse Resp BP BP Pulse Ox 09/03/20 04:00 97.9 F 84 18 109/69 94 L 09/03/20 02:00 96 16 09/03/20 00:00 97.8 F 96 16 102/67 95 09/02/20 23:23 100 18 09/02/20 22:47 98.0 F 100 18 97/62 93 L 09/02/20 22:01 98.0 F 100 18 97/62 93 L 09/02/20 21:27 98 F 80 18 114/77 97 09/02/20 19:26 80 18 114/77 97 09/02/20 18:15 99 18 116/79 97 09/02/20 16:59 109 H 18 104/78 97 09/02/20 16:29 112 H 18 99/77 97 09/02/20 15:00 122 H 18 88/70 97 09/02/20 14:45 126 H 20 97/71 94 L 09/02/20 13:46 98 F 18 101/77 95 Intake and Output 09/02/20 09/03/20 09/03/20 22:59 06:59 14:59 Output Total 200 Balance -200 Output: Urine 200 Other: Voiding Method Urinal # Voids 2 Weight 98.43 kg 89 kg GENERAL: The patient is alert and oriented x3, not in any acute distress. Well developed, well nourished. HEENT: Pupils are round and equally reacting to light. EOMI. No scleral icterus. No conjunctival pallor. Normocephalic, atraumatic. No pharyngeal erythema. No thyromegaly. CARDIOVASCULAR: S1 and S2 present. No murmurs, rubs, or gallops. PULMONARY: Chest is clear to auscultation, no wheezing or crackles. ABDOMEN: Soft, nontender, nondistended, normoactive bowel sounds. No palpable organomegaly. MUSCULOSKELETAL: No joint swelling or deformity. EXTREMITIES: No cyanosis, clubbing, or pedal edema. NEUROLOGICAL: Gross neurological examination did not reveal any focal deficits. SKIN: Excoriated skin rashes,possible on the whole back (patient refused to move because it was painful so no back inspection was done only barely in the lower back when he raises his leg), Satellite-like rash in the bilateral inguinal area . No petechiae Results CBC & Chem 7: 09/03/20 04:26 09/02/20 22:36 Labs: Abnormal Lab Results - Last 24 Hours (Table) 09/02/20 09/02/20 09/02/20 Range/Units 14:45 14:45 14:45 WBC 24.1 H (3.8-10.6) k/uL RBC (4.30-5.90) m/uL Hgb (13.0-17.5) gm/dL Hct (39.0-53.0) % MCHC (31.0-37.0) g/dL RDW 16.6 H (11.5-15.5) % Neutrophils # 22.1 H (1.3-7.7) k/uL Lymphocytes # 0.7 L (1.0-4.8) k/uL Monocytes # 1.1 H (0-1.0) k/uL APTT 21.4 L (22.0-30.0) sec Sodium (137-145) mmol/L Chloride (98-107) mmol/L Creatinine (0.66-1.25) mg/dL Glucose (74-99) mg/dL POC Glucose (mg/dL) (75-99) mg/dL Plasma Lactic Acid Hernán (0.7-2.0) mmol/L Alkaline Phosphatase (38-126) U/L Albumin (3.5-5.0) g/dL Urine Glucose (UA) 4+ H (Negative) Ur Leukocyte Esterase Small H (Negative) 09/02/20 09/02/20 09/02/20 Range/Units 14:45 14:45 17:26 WBC (3.8-10.6) k/uL RBC (4.30-5.90) m/uL Hgb (13.0-17.5) gm/dL Hct (39.0-53.0) % MCHC (31.0-37.0) g/dL RDW (11.5-15.5) % Neutrophils # (1.3-7.7) k/uL Lymphocytes # (1.0-4.8) k/uL Monocytes # (0-1.0) k/uL APTT (22.0-30.0) sec Sodium 128 L (137-145) mmol/L Chloride 92 L (98-107) mmol/L Creatinine (0.66-1.25) mg/dL Glucose 713 H* (74-99) mg/dL POC Glucose (mg/dL) >600 H (75-99) mg/dL Plasma Lactic Acid Hernán 4.0 H* (0.7-2.0) mmol/L Alkaline Phosphatase 209 H (38-126) U/L Albumin 3.1 L (3.5-5.0) g/dL Urine Glucose (UA) (Negative) Ur Leukocyte Esterase (Negative) 09/02/20 09/02/20 09/02/20 Range/Units 18:37 18:45 20:21 WBC (3.8-10.6) k/uL RBC (4.30-5.90) m/uL Hgb (13.0-17.5) gm/dL Hct (39.0-53.0) % MCHC (31.0-37.0) g/dL RDW (11.5-15.5) % Neutrophils # (1.3-7.7) k/uL Lymphocytes # (1.0-4.8) k/uL Monocytes # (0-1.0) k/uL APTT (22.0-30.0) sec Sodium 134 L (137-145) mmol/L Chloride (98-107) mmol/L Creatinine 0.57 L (0.66-1.25) mg/dL Glucose 182 H (74-99) mg/dL POC Glucose (mg/dL) 231 H 239 H (75-99) mg/dL Plasma Lactic Acid Hernán (0.7-2.0) mmol/L Alkaline Phosphatase (38-126) U/L Albumin (3.5-5.0) g/dL Urine Glucose (UA) (Negative) Ur Leukocyte Esterase (Negative) 09/02/20 09/03/20 09/03/20 Range/Units 22:36 04:26 06:24 WBC 12.0 H (3.8-10.6) k/uL RBC 3.93 L (4.30-5.90) m/uL Hgb 10.8 L D (13.0-17.5) gm/dL Hct 35.4 L (39.0-53.0) % MCHC 30.4 L (31.0-37.0) g/dL RDW 17.1 H (11.5-15.5) % Neutrophils # 9.0 H (1.3-7.7) k/uL Lymphocytes # (1.0-4.8) k/uL Monocytes # (0-1.0) k/uL APTT (22.0-30.0) sec Sodium 133 L (137-145) mmol/L Chloride (98-107) mmol/L Creatinine 0.59 L (0.66-1.25) mg/dL Glucose 300 H (74-99) mg/dL POC Glucose (mg/dL) 175 H (75-99) mg/dL Plasma Lactic Acid Hernán (0.7-2.0) mmol/L Alkaline Phosphatase (38-126) U/L Albumin (3.5-5.0) g/dL Urine Glucose (UA) (Negative) Ur Leukocyte Esterase (Negative) Thrombosis Risk Factor Assmnt - Choose All That Apply Each Factor Represents 1 point: Obesity (BMI >25), Sepsis (< 1month) Other Risk Factors: Yes Each Risk Factor Represents 2 Points: Age 61-74 years Each Risk Factor Represents 3 Points: History of DVT/PE Thrombosis Risk Factor Assessment Total Risk Factor Score: 7 Thrombosis Risk Factor Assessment Level: High Risk Assessment and Plan Assessment: Cellulitis of the back. Could be bacterial or fungal infection of both Diabetes mellitus with hyperglycemia Recent history of Malfunction of the colostomy and its back due to nearby wound and cellulitis Recent history of pericolostomy Abdominal wall cellulitis Recent history of Hospital-acquired left lower lobe pneumonia, aspiration pneumonia has been ruled out Recent history of non-STEMI, status post cardiac cath and stent placement to the LAD Recent surgical abdominal wound dehiscence and infection. 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 Continue with broad-spectrum antibiotic. He is on vancomycin, we will add Unasyn and Diflucan. We'll add nystatin and Diflucan and ask for wound culture or skin ulcer culture. Consult infectious disease regarding antibiotic and treatment. Follow-up culture results. Pain management Continue with the glipizide and metformin and insulin sliding scale and monitor sugar. Gentle hydration Labs and medication were reviewed.. Continue same treatment. Continue with symptomatic treatment. Resume home medication. Monitor lytes and vitals. DVT and GI prophylaxis. Further recommendations depends on the clinical course of the patient DVT prophylaxis: Subcutaneous heparin GI Prophylaxis: Ppi Prognosis is guarded
[2020-09-03 11:19] VITALS: BMI 27.3
--- NOTE | 2020-09-03 11:31 | P.CONS ---
History of Present Illness - Reason for Consult Consult date: 09/03/20 wound care - History of Present Illness this is a 69-year-old patient being seen on [facility] for ulcerations to back bilateral groins and bilateral posterior lower extremities. Patient was diagnosed with cellulitis. Patient states that the has been bleeding for the past week. patient stated 52 nurse told him as a fungal infection. The groins are tender and weeping. patient's entire back is excoriated with maceration and abrasions. There is no actual open ulcerations the bleeding is noted from the excoriation. Bilateral groins and posterior lower legs have no open ulcerations. patient's past medical history significant for diabetes, asthma, CVA, hyperlipidemia, hypertension, BPH Review of Systems Review Of Systems: Constitutional: reports pain to back, No fever, no chills, no night sweats. No weight change. No weakness, fatigue or lethargy. No daytime sleepiness. Integumentary:reports wounds, no lesions. No rash or pruritus. No unusual bruising. No change in hair or nails. 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 History of Any Multi-Drug Resistant Organisms: C-DIFF, MRSA Year Discovered:: January 2015 (At [facility] per patient) MDRO Source:: Right Ankle and Back (per patient) Past Surgical History: Adenoidectomy, Bowel Resection, Orthopedic Surgery, Tonsillectomy Additional Past Surgical History / Comment(s): 01/2015 Laminectomy, discectomy with decompression L5-S1, I&D epidural abscess L5-S1 (STATED HAD MULTIPLE BX- BENIGN)and aspiration R ankle, 02/2015 I&D L5-S1 at [facility] [place], Yearly colonoscopy . left wrist surgically repaired after fx-PLATE/SCREW. RT HIP TEVIN/SCREWS. Past Anesthesia/Blood Transfusion Reactions: No Reported Reaction Additional Past Anesthesia/Blood Transfusion Reaction / Comm: Pt states he recieved blood 02/2015 at [facility] without reaction. Past Psychological History: No Psychological Hx Reported Additional Psychological History / Comment(s): Pt resideswith daughter. Drives, has dogs. Smoking Status: Former smoker Past Alcohol Use History: None Reported Additional Past Alcohol Use History / Comment(s): Patient has a history of smoking marijuana half ounce per day and quit in 1998. He denies any alcohol use SINCE 1975. Past Drug Use History: None Reported Additional Drug Use History / Comment(s): No current use. - Past Family History Father Family Medical History: Myocardial Infarction (MD) Additional Family Medical History / Comment(s): Father of massive MD. Mother Family Medical History: Diabetes Mellitus Medications and Allergies Home Medications Medication Instructions Recorded Confirmed Type Acetaminophen Tab [Tylenol] 650 mg PO Q6H PRN 02/14/19 09/02/20 History Budesonide-Formot 160-4.5 Mcg 2 puff INHALATION RT-BID PRN 06/11/20 09/02/20 History [Symbicort 160-4.5 Mcg Inhaler] Finasteride [Proscar] 5 mg PO DAILY 06/11/20 09/02/20 History Diphenoxylate HCl/Atropine 1 tab PO TID 30 Days #90 tab 07/02/20 09/02/20 Rx [Lomotil 2.5-0.025 mg Tablet] Atorvastatin [Lipitor] 80 mg PO HS #90 tab 07/10/20 09/02/20 Rx Clopidogrel [Plavix] 75 mg PO DAILY #90 tab 07/10/20 09/02/20 Rx Pantoprazole Sodium [Protonix] 40 mg PO DAILY #30 tablet. 07/16/20 09/02/20 Rx Nitroglycerin Sl Tabs [Nitrostat] 0.4 mg SL Q5M PRN 07/24/20 09/02/20 History metFORMIN HCL [Glucophage] 500 mg PO AC-BID 07/24/20 09/02/20 History Aspirin EC [Ecotrin] 325 mg PO DAILY 09/02/20 09/02/20 History Lisinopril [Zestril] 10 mg PO DAILY 09/02/20 09/02/20 History Naproxen Sodium [Aleve] 220 mg PO DAILY 09/02/20 09/02/20 History calcium polycarbophiL [Fibercon] 625 mg PO DAILY 09/02/20 09/02/20 History glyBURIDE [Diabeta] 5 mg PO AC-BID 09/02/20 09/02/20 History predniSONE 5 mg PO TID 09/02/20 09/02/20 History Allergies Allergy/AdvReac Type Severity Reaction Status Date / Time No Known Allergies Allergy Verified 09/02/20 15:11 Physical Exam Vitals: Vital Signs Temp Pulse Pulse Resp BP BP Pulse Ox 09/03/20 08:00 98.0 F 108 H 19 132/89 96 09/03/20 04:00 97.9 F 84 18 109/69 94 L 09/03/20 02:00 96 16 09/03/20 00:00 97.8 F 96 16 102/67 95 09/02/20 23:23 100 18 09/02/20 22:47 98.0 F 100 18 97/62 93 L 09/02/20 22:01 98.0 F 100 18 97/62 93 L 09/02/20 21:27 98 F 80 18 114/77 97 09/02/20 19:26 80 18 114/77 97 09/02/20 18:15 99 18 116/79 97 09/02/20 16:59 109 H 18 104/78 97 09/02/20 16:29 112 H 18 99/77 97 09/02/20 15:00 122 H 18 88/70 97 09/02/20 14:45 126 H 20 97/71 94 L 09/02/20 13:46 98 F 18 101/77 95 Intake and Output 09/02/20 09/03/20 09/03/20 22:59 06:59 14:59 Output Total 200 Balance -200 Output: Urine 200 Other: Voiding Method Urinal # Voids 2 Weight 98.43 kg 89 kg 89 kg Physical exam: General Appearance: Alert, cooperative, no distress, appears stated age. Skin: See HPI all other Skin color, texture, tugor normal, no rashes or lesions. Neurologic: Alert oriented x3 Results CBC & Chem 7: 09/03/20 04:26 09/02/20 22:36 Labs: Abnormal Lab Results - Last 24 Hours (Table) 09/02/20 09/02/20 09/02/20 Range/Units 14:45 14:45 14:45 WBC 24.1 H (3.8-10.6) k/uL RBC (4.30-5.90) m/uL Hgb (13.0-17.5) gm/dL Hct (39.0-53.0) % MCHC (31.0-37.0) g/dL RDW 16.6 H (11.5-15.5) % Neutrophils # 22.1 H (1.3-7.7) k/uL Lymphocytes # 0.7 L (1.0-4.8) k/uL Monocytes # 1.1 H (0-1.0) k/uL APTT 21.4 L (22.0-30.0) sec Sodium (137-145) mmol/L Chloride (98-107) mmol/L Creatinine (0.66-1.25) mg/dL Glucose (74-99) mg/dL POC Glucose (mg/dL) (75-99) mg/dL Plasma Lactic Acid Hernán (0.7-2.0) mmol/L Alkaline Phosphatase (38-126) U/L Albumin (3.5-5.0) g/dL Urine Glucose (UA) 4+ H (Negative) Ur Leukocyte Esterase Small H (Negative) 09/02/20 09/02/20 09/02/20 Range/Units 14:45 14:45 17:26 WBC (3.8-10.6) k/uL RBC (4.30-5.90) m/uL Hgb (13.0-17.5) gm/dL Hct (39.0-53.0) % MCHC (31.0-37.0) g/dL RDW (11.5-15.5) % Neutrophils # (1.3-7.7) k/uL Lymphocytes # (1.0-4.8) k/uL Monocytes # (0-1.0) k/uL APTT (22.0-30.0) sec Sodium 128 L (137-145) mmol/L Chloride 92 L (98-107) mmol/L Creatinine (0.66-1.25) mg/dL Glucose 713 H* (74-99) mg/dL POC Glucose (mg/dL) >600 H (75-99) mg/dL Plasma Lactic Acid Hernán 4.0 H* (0.7-2.0) mmol/L Alkaline Phosphatase 209 H (38-126) U/L Albumin 3.1 L (3.5-5.0) g/dL Urine Glucose (UA) (Negative) Ur Leukocyte Esterase (Negative) 09/02/20 09/02/20 09/02/20 Range/Units 18:37 18:45 20:21 WBC (3.8-10.6) k/uL RBC (4.30-5.90) m/uL Hgb (13.0-17.5) gm/dL Hct (39.0-53.0) % MCHC (31.0-37.0) g/dL RDW (11.5-15.5) % Neutrophils # (1.3-7.7) k/uL Lymphocytes # (1.0-4.8) k/uL Monocytes # (0-1.0) k/uL APTT (22.0-30.0) sec Sodium 134 L (137-145) mmol/L Chloride (98-107) mmol/L Creatinine 0.57 L (0.66-1.25) mg/dL Glucose 182 H (74-99) mg/dL POC Glucose (mg/dL) 231 H 239 H (75-99) mg/dL Plasma Lactic Acid Hernán (0.7-2.0) mmol/L Alkaline Phosphatase (38-126) U/L Albumin (3.5-5.0) g/dL Urine Glucose (UA) (Negative) Ur Leukocyte Esterase (Negative) 09/02/20 09/03/20 09/03/20 Range/Units 22:36 04:26 06:24 WBC 12.0 H (3.8-10.6) k/uL RBC 3.93 L (4.30-5.90) m/uL Hgb 10.8 L D (13.0-17.5) gm/dL Hct 35.4 L (39.0-53.0) % MCHC 30.4 L (31.0-37.0) g/dL RDW 17.1 H (11.5-15.5) % Neutrophils # 9.0 H (1.3-7.7) k/uL Lymphocytes # (1.0-4.8) k/uL Monocytes # (0-1.0) k/uL APTT (22.0-30.0) sec Sodium 133 L (137-145) mmol/L Chloride (98-107) mmol/L Creatinine 0.59 L (0.66-1.25) mg/dL Glucose 300 H (74-99) mg/dL POC Glucose (mg/dL) 175 H (75-99) mg/dL Plasma Lactic Acid Hernán (0.7-2.0) mmol/L Alkaline Phosphatase (38-126) U/L Albumin (3.5-5.0) g/dL Urine Glucose (UA) (Negative) Ur Leukocyte Esterase (Negative) Assessment and Plan (1) Excoriation of back Current Visit: Yes Status: Acute Code(s): S20.419A - ABRASION OF UNSPECIFIED BACK WALL OF THORAX, INIT ENCNTR SNOMED Code(s): 17543683 (2) Maceration of skin Current Visit: Yes Status: Acute Code(s): L98.8 - OTH DISRD OF THE SKIN AND SUBCUTANEOUS TISSUE SNOMED Code(s): 3477576 (3) Cellulitis Current Visit: Yes Status: Acute Code(s): L03.90 - CELLULITIS, UNSPECIFIED SNOMED Code(s): 723639695 Plan: entire back excoriation with bleeding is noted. No actual open ulcerations noted. back, bilateral groins, bilateral posterior lower extremities:Apply triad, continue to use instadry sheets as needed. thank you for the consultation any questions please contact the wound care center DNP note has been reviewed and discussed with Dr. Mcgregor and the impression and plan of care has been directed as dictated.
[2020-09-03 11:44] LABS: Glucose,Whole Blood 82 mg/dL (75-99)
[2020-09-03] MEDS: HYDROPHILIC CREAM 180 GM TUBE TOPICAL SCH (13:03)
[2020-09-03] MEDS: MORPHINE SULFATE 4 MG/ML SYRINGE IV PRN ×3 (13:03→21:11)
[2020-09-03 14:45] LABS: Hemoglobin A1C 11.2 % (4.0-6.0)
[2020-09-03 16:43] LABS: Glucose,Whole Blood 76 mg/dL (75-99)
[2020-09-03] MEDS: BENZOCAINE/MENTHOL LOZENG 1 EACH LOZENGE MUCOUS MEM PRN (19:57)
[2020-09-03] MEDS: ACETAMINOPHEN TAB 325 MG TAB PO PRN (19:58)
[2020-09-03 20:27] LABS: Glucose,Whole Blood 100 mg/dL (75-99)
[2020-09-03] MEDS: ATORVASTATIN 80 MG TAB PO SCH (21:11)
[2020-09-03] MEDS: predniSONE 5 MG TAB PO SCH (21:11)
[2020-09-03] MEDS: NYSTATIN 100,000 UNIT/GM POWD 15 GM TOPICAL SCH (22:00)
--- NOTE | 2020-09-03 23:16 | CONS ---
CONSULTATION DATE OF SERVICE: 09/03/2020. REASON FOR CONSULTATION: Cellulitis. HISTORY OF PRESENT ILLNESS: The patient is a 69-year-old male presenting to the ER at [facility] for worsening pain, swelling and redness to his bilateral groins and gluteal cleft area. The patient mentioned his symptoms have been going on for about a week and they have been getting worse. The patient has been complaining of pain to the area to be more sharp in nature, intensity 6 to 7 out of 10 and no radiation. Patient currently does not have any open wound or any drainage. With these symptoms, the patient presented to the hospital. On arrival in the ER the patient was afebrile and later on did spike a fever of 101 degrees Fahrenheit. The patient has been tachycardic and did have a white count of 24.1. The patient's UA was negative. The patient did have x-rays of the pelvis; no acute fracture. The patient has been started on Unasyn, Diflucan and vancomycin. Infectious Disease was consulted for further management of antibiotic therapy. REVIEW OF SYSTEMS: Positive points have been mentioned in HPI. Rest of the systems are negative. PAST MEDICAL HISTORY: Asthma, CVA, TIA, diabetes mellitus, hypertension, hyperlipidemia, prostate disorder. PAST SURGICAL HISTORY: Adenoidectomy, bowel resection, tonsillectomy, laminectomy. SOCIAL HISTORY: No history of smoking, drinking or drug use. FAMILY HISTORY: Father with history of VT. Mother with history of diabetes. ALLERGIES: NO KNOWN DRUG ALLERGIES. CURRENT MEDICATIONS: The patient is currently on vancomycin, Pharmacy to dose. He is on Unasyn, prednisone, Protonix, Nitrostat, Glucophage, Zestril, heparin, Glucotrol, Proscar, Plavix, Lipitor and aspirin. PHYSICAL EXAMINATION: Blood pressure is 119/82 with a pulse of 121, temperature 101.1. He is 97% on 2 L nasal cannula. General description is an elderly male lying in bed in no distress. HEENT: Examination shows no pallor or scleral icterus. Oral mucous membrane is dry. No pharyngeal erythema or thrush. NECK: Trachea is central. No thyromegaly. LUNGS: Unlabored breathing. Clear to auscultation anteriorly. No wheeze or crackle. HEART: S1, S2. Regular rate and rhythm. ABDOMEN: Soft. No tenderness. No guarding or rigidity. Examination of the groin area did show extensive cutaneous candidiasis with concern for possible secondary cellulitis. EXTREMITIES: No edema of the feet. SKIN EXAMINATION: No rash or mass palpable. Neurologically the patient is awake, alert, oriented x3. Mood and affect normal. LABS: Hemoglobin is 10.8, white count 12. Admission white count was 24.1. BUN of 13, creatinine 0.59. Urine is negative. DIAGNOSTIC IMPRESSION AND PLAN: Patient admitted to hospital with sepsis. He did have a fever and tachycardia, elevated white count. Source is extensive bilateral groin cutaneous candidiasis and concern for possible secondary cellulitis, likely from Gram-positive skin elba. Clinically doubt a Gram-negative infection or MRSA. PLAN: 1. We will apply nystatin powder to bilateral groin area. 2. Continue with Diflucan and Unasyn 3 grams q.6 hours. 3. Discontinue the vancomycin. 4. Will follow his clinical condition and culture to further adjust medication if needed. Thank you for this consultation. Will follow this patient along with you. MMODL / IJN: [id number] /
[2020-09-04] MEDS: SODIUM CHLORIDE 0.9% 1,000 ML IV SCH ×6 (00:08→12:12)
[2020-09-04] MEDS: MORPHINE SULFATE 4 MG/ML SYRINGE IV PRN ×3 (01:27→22:21)
[2020-09-04] MEDS: AMPICILLIN-SULBACTAM 3 GM in SODIUM CHLORIDE 0.9% 100 ML IVPB SCH ×3 (01:32→14:41)
[2020-09-04] MEDS: ERYTHROMYCIN 5 MG/GM OPHTH OINT 3.5 GM TUBE LEFT EYE SCH ×5 (02:30→23:01)
[2020-09-04 06:54] LABS: Glucose,Whole Blood 77 mg/dL (75-99)
[2020-09-04 07:02] LABS: African American GFR (CKD) >90 (>60 ml/min/1.73 sqM); Non-African American GFR(CKD) >90 (>60 ml/min/1.73 sqM)
[2020-09-04] MEDS: INSULIN ASPART (NovoLOG) 100 UNIT/ML VIAL SQ SCH ×4 (07:30→22:16)
[2020-09-04] MEDS: PANTOPRAZOLE 40 MG TABLET PO SCH (07:49)
[2020-09-04] MEDS: predniSONE 5 MG TAB PO SCH ×3 (07:49→22:22)
[2020-09-04] MEDS: FINASTERIDE 5 MG TAB PO SCH (07:49)
[2020-09-04] MEDS: HEPARIN SODIUM,PORCINE 5,000 UNIT/ML 1 ML VIAL SQ SCH ×2 (07:49→22:21)
[2020-09-04] MEDS: metFORMIN 500 MG TAB PO SCH ×2 (07:49→17:07)
[2020-09-04] MEDS: lisinopriL 10 MG TAB PO SCH (07:49)
[2020-09-04] MEDS: glipiZIDE 10 MG TAB PO SCH ×2 (07:49→17:06)
[2020-09-04] MEDS: CLOPIDOGREL 75 MG TAB PO SCH (07:49)
[2020-09-04] MEDS: ASPIRIN 325 MG TAB PO SCH (07:50)
[2020-09-04] MEDS: FLUCONAZOLE IN NACL,ISO-OSM 200 MG in SALINE 1 100ML.BAG IVPB SCH ×2 (10:56→11:05)
[2020-09-04 11:29] LABS: Glucose,Whole Blood 183 mg/dL (75-99)
[2020-09-04] MEDS: BENZOCAINE/MENTHOL LOZENG 1 EACH LOZENGE MUCOUS MEM PRN (12:09)
[2020-09-04] MEDS ORDERED: HYDROmorphone 0.5 MG/0.5 ML SYRINGE IVP STA (13:34)
--- NOTE | 2020-09-04 14:28 | P.PN ---
Subjective This is a pleasant 69 years old male with multiple medical problems as below. [facility]. He was admitted with cellulitis/rash of the back. Patient states that for 2 days he started developing rash with excoriated skin from the upper back down to his buttock it is hurting him to much that he refused to roll over to look at it. His visiting nurse told him its fungal infection. Also he has intertriginous inguinal rash with satellite pattern suspicious for fungal infection. Patient says that he was compliant with his diabetic medication including the glipizide and metformin. He denies chest pain or dyspnea, no change in urine habits or dysuria. No diarrhea through his colostomy back. The skin around his previous abdominal incision is closed and healed. Patient afebrile and vitals are stable. Showing leukocytosis of 20 4.1K coming down to 12.0 K. BMP is unremarkable. Glucose was elevated 713 on admission with high lactic acid of 4.0 came down to 1.8. His sugar is better controlled now. Liver enzymes are not elevated. INR is normal. Urinalysis showed no infection but glucosuria. Acetone is negative. Pelvic x-ray showing no acute fracture. EKG showing sinus tachycardia at [address]-T changes. In the emergency room he got 1 dose of ceftriaxone, fluconazole and Zosyn. And then continued with IV vancomycin. Also he got 1 L of normal saline 09/04/2020 Patient is awake and with no new complaint however he still have extensive lesions in his whole back, patient lesions are painful and he does not want to roll around candidate, his rash in the generator area is slightly improving with nystatin. But also he has some pinkish rash in the lower abdomen especially in the right side. No mouth ulcers. He had a fever yesterday of 101, today he is afebrile, his temperature is 90.5. Blood pressure is stable of 101/65. His creatinine is normal at 0.6. Lactic acid was normal yesterday is 1.2. Glucose is controlled. Discussed with the staff to try to obtain a culture from the area. Infectious disease input is appreciated. There going to continue with Diflucan and Unasyn. Discontinue vancomycin for now. Also we'll ask for dermatology service evaluation. Wound care team are on the case as well He is on normal saline at 130 mL per Review of Systems CONSTITUTIONAL: No fever, no malaise, no fatigue. HEENT: No recent visual problems or hearing problems. Denied any sore throat. CARDIOVASCULAR: No orthopnea, PND, no palpitations, no syncope. PULMONARY: No shortness of breath, no cough, no hemoptysis. GASTROINTESTINAL: No diarrhea, no nausea, no vomiting, no abdominal pain. Normoactive bowel sounds. NEUROLOGICAL: No headaches, no weakness, no numbness. Active Medications Generic Name Dose Route Start Last Admin Trade Name Freq PRN Reason Stop Dose Admin Acetaminophen 325 mg 09/02/20 18:56 09/03/20 19:58 Acetaminophen Tab 325 Mg Tab PO 325 mg Q6HR PRN Administration Fever and/ or Pain Aspirin 325 mg 09/03/20 09:00 09/04/20 07:50 Aspirin 325 Mg Tab PO 325 mg DAILY JOHN Administration Atorvastatin Calcium 80 mg 09/02/20 21:00 09/03/20 21:11 Atorvastatin 80 Mg Tab PO 80 mg HS JOHN Administration Benzocaine/Menthol 1 each 09/03/20 18:39 09/04/20 12:09 Benzocaine/Menthol Lozeng 1 Each Lozenge MUCOUS MEM 1 each Q4HR PRN Administration Cough Calcium Polycarbophil 625 mg 09/03/20 09:00 09/04/20 10:15 Calcium Polycarbophil 625 Mg Tab PO Not Given DAILY JOHN Clopidogrel Bisulfate 75 mg 09/03/20 09:00 09/04/20 07:49 Clopidogrel 75 Mg Tab PO 75 mg DAILY JOHN Administration Erythromycin 1 applic 09/02/20 14:30 09/04/20 12:02 Erythromycin 5 Mg/Gm Ophth Oint 3.5 Gm Tube LEFT EYE 1 applic Q6HR JOHN Administration Finasteride 5 mg 09/03/20 09:00 09/04/20 07:49 Finasteride 5 Mg Tab PO 5 mg DAILY JOHN Administration Glipizide 10 mg 09/03/20 07:30 09/04/20 07:49 Glipizide 10 Mg Tab PO 10 mg AC-BID JOHN Administration Heparin Sodium (Porcine) 5,000 unit 09/02/20 21:00 09/04/20 07:49 Heparin Sodium,Porcine 5,000 Unit/Ml 1 Ml Vial SQ 5,000 unit Q12HR JOHN Administration Sodium Chloride 1,000 mls @ 130 mls/hr 09/02/20 14:30 09/04/20 12:12 Saline 0.9% IV 130 mls/hr .Q7H42M JOHN Administration Sodium Chloride 1,000 mls @ 150 mls/hr 09/02/20 19:15 09/04/20 11:06 Saline 0.9% IV Not Given .Q6H40M JOHN Ampicillin Sodium/Sulbactam 100 mls @ 200 mls/hr 09/03/20 08:00 09/04/20 07:49 Sodium 3 gm/ Sodium Chloride IVPB 200 mls/hr Q6H JOHN Administration Fluconazole/Sodium Chloride 100 mls @ 100 mls/hr 09/04/20 09:00 09/04/20 11:05 200 mg/ IV Solution IVPB 100 mls/hr DAILY JOHN Administration Insulin Aspart 0 unit 09/03/20 07:30 09/04/20 12:02 Insulin Aspart (Novolog) 100 Unit/Ml Vial SQ 2 unit ACHS JOHN Administration Protocol Lisinopril 10 mg 09/03/20 09:00 09/04/20 07:49 Lisinopril 10 Mg Tab PO 10 mg DAILY JOHN Administration Metformin HCl 500 mg 09/03/20 07:30 09/04/20 07:49 Metformin 500 Mg Tab PO 500 mg AC-BID JOHN Administration Morphine Sulfate 4 mg 09/03/20 10:16 09/04/20 08:09 Morphine Sulfate 4 Mg/Ml Syringe IV 4 mg Q4H PRN Administration Pain Multi-Ingred Cream/Lotion/Oil/Oint 1 applic 09/03/20 11:30 09/03/20 13:03 Hydrophilic Cream 180 Gm Tube TOPICAL 1 applic DAILY JOHN Administration Naloxone HCl 0.2 mg 09/02/20 16:18 Naloxone 0.4 Mg/Ml 1 Ml Vial IV Q2M PRN Opioid Reversal Nitroglycerin 0.4 mg 09/02/20 18:54 Nitroglycerin Sl Tabs 0.4 Mg Tab SUBLINGUAL Q5M PRN Chest Pain Nystatin 1 applic 09/03/20 21:00 09/03/20 22:00 Nystatin 100,000 Unit/Gm Powd 15 Gm TOPICAL Not Given BID JOHN Pantoprazole Sodium 40 mg 09/03/20 07:30 09/04/20 07:49 Pantoprazole 40 Mg Tablet PO 40 mg AC-BRKFST JOHN Administration Prednisone 5 mg 09/03/20 22:00 09/04/20 07:49 Prednisone 5 Mg Tab PO 5 mg TID JOHN Administration Objective - Vital Signs Vital signs: Vital Signs Temp 95.0 F L 09/04/20 14:17 Pulse 93 09/04/20 14:17 Resp 16 09/04/20 14:17 BP 101/65 09/04/20 14:17 Pulse Ox 94 L 09/04/20 14:17 Intake & Output 09/03/20 09/04/20 09/04/20 18:59 06:59 18:59 Intake Total 420 580 Output Total 575 240 250 Balance -155 340 -250 Weight 89 kg Intake: Intake, IV Titration 100 Amount Ampicillin-Sulbactam 3 gm 100 In Sodium Chloride 0.9% 100 ml @ 200 mls/hr IVPB Q6H JOHN Rx#:[id number] Oral 420 480 Output: Urine 575 250 Stool 240 Other: Voiding Method Urinal Urinal Urinal # Bowel Movements 1 - Exam GENERAL: The patient is alert and oriented x3, not in any acute distress. Well developed, well nourished. HEENT: Pupils are round and equally reacting to light. EOMI. No scleral icterus. No conjunctival pallor. Normocephalic, atraumatic. No pharyngeal erythema. No thyromegaly. CARDIOVASCULAR: S1 and S2 present. No murmurs, rubs, or gallops. PULMONARY: Chest is clear to auscultation, no wheezing or crackles. ABDOMEN: Soft, nontender, nondistended, normoactive bowel sounds. No palpable organomegaly. MUSCULOSKELETAL: No joint swelling or deformity. EXTREMITIES: No cyanosis, clubbing, or pedal edema. NEUROLOGICAL: Gross neurological examination did not reveal any focal deficits. -SKIN: Excoriated skin rashes,possible on the whole back (patient refused to move because it was painful so no back inspection was done only barely in the lower back when he raises his leg), improving Satellite-like rash in the bilateral inguinal area . However pink redness extending into the lower abdomen especially on the right side. No petechiae - Labs CBC & Chem 7: 09/03/20 04:26 09/04/20 06:03 Labs: Abnormal Lab Results - Last 24 Hours (Table) 09/03/20 09/03/20 09/04/20 Range/Units 04:26 20:23 06:03 Creatinine 0.63 L (0.66-1.25) mg/dL POC Glucose (mg/dL) 100 H (75-99) mg/dL Hemoglobin A1c 11.2 H (4.0-6.0) % 09/04/20 Range/Units 11:28 Creatinine (0.66-1.25) mg/dL POC Glucose (mg/dL) 183 H (75-99) mg/dL Hemoglobin A1c (4.0-6.0) % Microbiology - Last 24 Hours (Table) 09/02/20 14:57 Blood Culture - Preliminary Blood No Growth after 24 hours Assessment and Plan Assessment: Cellulitis of the back. Could be bacterial or fungal infection or both Diabetes mellitus with hyperglycemia Recent history of Malfunction of the colostomy and its back due to nearby wound and cellulitis Recent history of pericolostomy Abdominal wall cellulitis Recent history of Hospital-acquired left lower lobe pneumonia, aspiration pneumonia has been ruled out Recent history of non-STEMI, status post cardiac cath and stent placement to the LAD Recent surgical abdominal wound dehiscence and infection. 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 Continue with broad-spectrum antibiotic. He is on vancomycin, we will add Unasyn and Diflucan. We'll add nystatin and Diflucan and ask for wound culture or skin ulcer culture. Consult infectious disease regarding antibiotic and treatment. Follow-up culture results. Pain management Continue with the glipizide and metformin and insulin sliding scale and monitor sugar. Gentle hydration Labs and medication were reviewed.. Continue same treatment. Continue with symptomatic treatment. Resume home medication. Monitor lytes and vitals. DVT and GI prophylaxis. Further recommendations depends on the clinical course of the patient DVT prophylaxis: Subcutaneous heparin GI Prophylaxis: Ppi Prognosis is guarded
[2020-09-04] MEDS: HYDROPHILIC CREAM 180 GM TUBE TOPICAL SCH (14:44)
[2020-09-04] MEDS: NYSTATIN 100,000 UNIT/GM POWD 15 GM TOPICAL SCH ×2 (14:44→22:21)
[2020-09-04] MEDS ORDERED: VANCOMYCIN TROUGH DUE 1 EACH MISC MISCELLANE ONE (15:00)
[2020-09-04 16:24] LABS: Glucose,Whole Blood 99 mg/dL (75-99)
[2020-09-04] MEDS: CLINDAMYCIN 900 MG in DEXTROSE 5% IN WATER 50 ML IVPB SCH ×4 (16:47→23:01)
[2020-09-04 21:19] LABS: Glucose,Whole Blood 152 mg/dL (75-99)
[2020-09-04] MEDS: ATORVASTATIN 80 MG TAB PO SCH (22:22)
--- NOTE | 2020-09-05 00:39 | PN ---
PROGRESS NOTE DATE OF SERVICE: 09/04/2020 REASON FOR FOLLOWUP: Bilateral groin area cutaneous candidiasis and back cellulitis. INTERVAL HISTORY: Patient is currently afebrile, has been complaining of pain and discomfort to the back area. The patient denies having any chest pain or shortness of breath. No cough. No abdominal pain. No oral source. PHYSICAL EXAMINATION: Blood pressure is 95/67, pulse of 89. Temperature is 97.4. He is 100% on 2 L nasal cannula. General description is an elderly male lying in bed in no distress. Respiratory system: Unlabored breathing, decreased breath sounds at bases. No wheeze. HEART: S1, S2. Regular rate and rhythm. Abdomen soft, no tenderness. Bilateral groin area cutaneous candidiasis but no worsening. He did have extensive rash in the back and with no lesions. LABS: No new labs have been obtained today. Blood culture has been negative. DIAGNOSTIC IMPRESSION AND PLAN: Patient with extensive back cellulitis and bilateral groin area cutaneous candidiasis. Antibiotic adjusted to cefazolin and clindamycin to continue along with nystatin powder to the groin and Diflucan. Await dermatology evaluation. Continue supportive care. MMODL / IJN: [id number] /
[2020-09-05] MEDS: MORPHINE SULFATE 4 MG/ML SYRINGE IV PRN ×6 (01:26→22:17)
[2020-09-05] MEDS: ERYTHROMYCIN 5 MG/GM OPHTH OINT 3.5 GM TUBE LEFT EYE SCH ×4 (05:56→23:49)
[2020-09-05 07:22] LABS: Glucose,Whole Blood 86 mg/dL (75-99)
[2020-09-05] MEDS: INSULIN ASPART (NovoLOG) 100 UNIT/ML VIAL SQ SCH ×4 (09:22→20:46)
[2020-09-05] MEDS: predniSONE 5 MG TAB PO SCH (09:31)
[2020-09-05] MEDS: ASPIRIN 325 MG TAB PO SCH (09:31)
[2020-09-05] MEDS: HEPARIN SODIUM,PORCINE 5,000 UNIT/ML 1 ML VIAL SQ SCH ×2 (09:31→20:46)
[2020-09-05] MEDS: metFORMIN 500 MG TAB PO SCH ×2 (09:31→16:51)
[2020-09-05] MEDS: CLOPIDOGREL 75 MG TAB PO SCH (09:31)
[2020-09-05] MEDS: lisinopriL 10 MG TAB PO SCH (09:31)
[2020-09-05] MEDS: glipiZIDE 10 MG TAB PO SCH (09:31)
[2020-09-05] MEDS: FINASTERIDE 5 MG TAB PO SCH (09:31)
[2020-09-05] MEDS: PANTOPRAZOLE 40 MG TABLET PO SCH (09:31)
[2020-09-05] MEDS: CLINDAMYCIN 900 MG in DEXTROSE 5% IN WATER 50 ML IVPB SCH ×4 (09:31→16:52)
[2020-09-05 09:39] LABS: Anisocytosis Slight; Basophils % (A) 0 %; Eosinophils # (A) 0.3 k/uL (0-0.7); Eosinophils % (A) 2 %; HGB 10.5 gm/dL (13.0-17.5); Hypochromasia Moderate; Lymphocytes % (A) 6 %; MCH 27.6 pg (25.0-35.0); MCV 92.2 fL (80.0-100.0); Mean Platelet Volume 7.6; Monocytes # (A) 0.9 k/uL (0-1.0); Monocytes % (A) 6 %; Neutrophils # (A) 13.7 k/uL (1.3-7.7); Neutrophils % (A) 86 %; Platelet Count 268 k/uL (150-450); RDW 17.3 % (11.5-15.5)
[2020-09-05] MEDS: HYDROPHILIC CREAM 180 GM TUBE TOPICAL SCH (11:04)
[2020-09-05] MEDS: NYSTATIN 100,000 UNIT/GM POWD 15 GM TOPICAL SCH ×2 (11:04→20:47)
[2020-09-05 11:25] LABS: Glucose,Whole Blood 68 mg/dL (75-99)
[2020-09-05 11:33] LABS: Glucose,Whole Blood 65 mg/dL (75-99)
[2020-09-05 11:47] LABS: Glucose,Whole Blood 68 mg/dL (75-99)
[2020-09-05 12:03] LABS: Glucose,Whole Blood 84 mg/dL (75-99)
[2020-09-05 12:34] LABS: African American GFR (CKD) 113.2 (60.0-200.0); Anion Gap 9.5 mmol/L (4.00-12.00); BUN/Creat Ratio 25.71 Ratio (12.00-20.00); Calcium 7.9 mg/dL (8.7-10.3); Carbon Dioxide 21.5 mmol/L (21.6-31.8); Non-African American GFR(CKD) 97.7 (60.0-200.0); Potassium 4.2 mmol/L (3.5-5.5)
[2020-09-05] MEDS: methylPREDNISolone SOD SUCCI 40 MG/ML 1 ML VIAL IV SCH ×2 (13:33→20:46)
[2020-09-05 16:49] LABS: Glucose,Whole Blood 231 mg/dL (75-99)
--- NOTE | 2020-09-05 16:50 | P.PN ---
Subjective This is a pleasant 69 years old male with multiple medical problems as below. He follows up with the [place] [facility]. He was admitted with cellulitis/rash of the back. Patient states that for 2 days he started developing rash with excoriated skin from the upper back down to his buttock it is hurting him to much that he refused to roll over to look at it. His visiting nurse told him its fungal infection. Also he has intertriginous inguinal rash with satellite pattern suspicious for fungal infection. Patient says that he was compliant with his diabetic medication including the glipizide and metformin. He denies chest pain or dyspnea, no change in urine habits or dysuria. No diarrhea through his colostomy back. The skin around his previous abdominal incision is closed and healed. Patient afebrile and vitals are stable. Showing leukocytosis of 20 4.1K coming down to 12.0 K. BMP is unremarkable. Glucose was elevated 713 on admission with high lactic acid of 4.0 came down to 1.8. His sugar is better controlled now. Liver enzymes are not elevated. INR is normal. Urinalysis showed no infection but glucosuria. Acetone is negative. Pelvic x-ray showing no acute fracture. EKG showing sinus tachycardia at [address]-T changes. In the emergency room he got 1 dose of ceftriaxone, fluconazole and Zosyn. And then continued with IV vancomycin. Also he got 1 L of normal saline 09/04/2020 Patient is awake and with no new complaint however he still have extensive lesions in his whole back, patient lesions are painful and he does not want to roll around candidate, his rash in the generator area is slightly improving with nystatin. But also he has some pinkish rash in the lower abdomen especially in the right side. No mouth ulcers. He had a fever yesterday of 101, today he is afebrile, his temperature is 90.5. Blood pressure is stable of 101/65. His creatinine is normal at 0.6. Lactic acid was normal yesterday is 1.2. Glucose is controlled. Discussed with the staff to try to obtain a culture from the area. Infectious disease input is appreciated. There going to continue with Diflucan and Unasyn. Discontinue vancomycin for now. Also we'll ask for dermatology service evaluation. Wound care team are on the case as well He is on normal saline at 130 mL per 09/05/2020 Patient still been treated for cellulitis in his whole back with excoriation, he is still refusing to be examined, however only infectious disease team are examined the patient to limit the amount he has to move as its painful for him. His inguinal rash is improving however his keep developing rash in his upper jes[address] and abdomen which looks more of ALLERGIC reaction, excess disease team changed his antibiotics to clindamycin and cefazolin while Diflucan He is already on prednisone 5 mg 3-4 times a day which is Dr. Pickeringrol 40 mg twice daily Hemodynamically his is stable. He has leukocytosis but he is on steroids as well. Hemoglobin is stable at 10.5. BMP is unremarkable. Glucose was running low around 60s, his been corrected with the staff. We will lower his glipizide from 10 mg to 5 mg twice daily Also continue with nystatin powder Dermatology team were consulted and is pending Review of Systems CONSTITUTIONAL: No fever, no malaise, no fatigue. HEENT: No recent visual problems or hearing problems. Denied any sore throat. CARDIOVASCULAR: No orthopnea, PND, no palpitations, no syncope. PULMONARY: No shortness of breath, no cough, no hemoptysis. GASTROINTESTINAL: No diarrhea, no nausea, no vomiting, no abdominal pain. Normoactive bowel sounds. NEUROLOGICAL: No headaches, no weakness, no numbness. Active Medications Generic Name Dose Route Start Last Admin Trade Name Freq PRN Reason Stop Dose Admin Acetaminophen 325 mg 09/02/20 18:56 09/03/20 19:58 Acetaminophen Tab 325 Mg Tab PO 325 mg Q6HR PRN Administration Fever and/ or Pain Aspirin 325 mg 09/03/20 09:00 09/05/20 09:31 Aspirin 325 Mg Tab PO 325 mg DAILY JOHN Administration Atorvastatin Calcium 80 mg 09/02/20 21:00 09/04/20 22:22 Atorvastatin 80 Mg Tab PO 80 mg HS JOHN Administration Benzocaine/Menthol 1 each 09/03/20 18:39 09/04/20 12:09 Benzocaine/Menthol Lozeng 1 Each Lozenge MUCOUS MEM 1 each Q4HR PRN Administration Cough Calcium Polycarbophil 625 mg 09/03/20 09:00 09/05/20 09:31 Calcium Polycarbophil 625 Mg Tab PO 625 mg DAILY JOHN Administration Clopidogrel Bisulfate 75 mg 09/03/20 09:00 09/05/20 09:31 Clopidogrel 75 Mg Tab PO 75 mg DAILY JOHN Administration Erythromycin 1 applic 09/02/20 14:30 09/05/20 13:34 Erythromycin 5 Mg/Gm Ophth Oint 3.5 Gm Tube LEFT EYE 1 applic Q6HR JOHN Administration Finasteride 5 mg 09/03/20 09:00 09/05/20 09:31 Finasteride 5 Mg Tab PO 5 mg DAILY JOHN Administration Glipizide 5 mg 09/05/20 17:30 Glipizide 5 Mg Tab PO AC-BID JOHN Heparin Sodium (Porcine) 5,000 unit 09/02/20 21:00 09/05/20 09:31 Heparin Sodium,Porcine 5,000 Unit/Ml 1 Ml Vial SQ 5,000 unit Q12HR JOHN Administration Fluconazole/Sodium Chloride 100 mls @ 100 mls/hr 09/04/20 09:00 09/04/20 11:05 200 mg/ IV Solution IVPB 100 mls/hr DAILY JOHN Administration Cefazolin Sodium 2 gm/ Sodium 50 mls @ 100 mls/hr 09/04/20 16:00 09/05/20 11:01 Chloride IVPB 100 mls/hr Q8HR JOHN Administration Clindamycin Phosphate 900 mg/ 56 mls @ 50 mls/hr 09/04/20 16:00 09/05/20 09:31 Dextrose/Water IVPB 50 mls/hr Q8HR JOHN Administration Insulin Aspart 0 unit 09/03/20 07:30 09/05/20 13:26 Insulin Aspart (Novolog) 100 Unit/Ml Vial SQ Not Given ACHS [facility] Protocol Lisinopril 10 mg 09/03/20 09:00 09/05/20 09:31 Lisinopril 10 Mg Tab PO 10 mg DAILY JOHN Administration Metformin HCl 500 mg 09/03/20 07:30 09/05/20 09:31 Metformin 500 Mg Tab PO 500 mg AC-BID JOHN Administration Methylprednisolone Sodium Succinate 40 mg 09/05/20 13:15 09/05/20 13:33 Methylprednisolone Sod Succi 40 Mg/Ml 1 Ml Vial IV 40 mg Q12HR JOHN Administration Morphine Sulfate 4 mg 09/03/20 10:16 09/05/20 13:56 Morphine Sulfate 4 Mg/Ml Syringe IV 4 mg Q4H PRN Administration Pain Multi-Ingred Cream/Lotion/Oil/Oint 1 applic 09/03/20 11:30 09/05/20 11:04 Hydrophilic Cream 180 Gm Tube TOPICAL 1 applic DAILY JOHN Administration Naloxone HCl 0.2 mg 09/02/20 16:18 Naloxone 0.4 Mg/Ml 1 Ml Vial IV Q2M PRN Opioid Reversal Nitroglycerin 0.4 mg 09/02/20 18:54 Nitroglycerin Sl Tabs 0.4 Mg Tab SUBLINGUAL Q5M PRN Chest Pain Nystatin 1 applic 09/03/20 21:00 09/05/20 11:04 Nystatin 100,000 Unit/Gm Powd 15 Gm TOPICAL 1 applic BID JOHN Administration Pantoprazole Sodium 40 mg 09/03/20 07:30 09/05/20 09:31 Pantoprazole 40 Mg Tablet PO 40 mg AC-BRKFST JOHN Administration Objective - Vital Signs Vital signs: Vital Signs Temp 99.2 F 09/05/20 15:08 Pulse 65 09/05/20 15:08 Resp 20 09/05/20 15:08 BP 106/64 09/05/20 15:08 Pulse Ox 93 L 09/05/20 15:08 Intake & Output 09/04/20 09/05/20 09/05/20 18:59 06:59 18:59 Intake Total 310 Output Total 011 290 5000 Balance -250 -540 -1100 Weight 95 kg Intake: Intake, IV Titration 310 Amount Clindamycin 900 mg In 50 Dextrose 5% in Water 50 ml @ 50 mls/hr IVPB Q8HR [facility] Rx#:[id number] Sodium Chloride 0.9% 1, 160 000 ml @ 150 mls/hr IV . Q6H40M [facility] Rx#:[id number] ceFAZolin 2 gm In Sodium 100 Chloride 0.9% 50 ml @ 100 mls/hr IVPB Q8HR [facility] Rx# :[id number] Output: Urine 250 300 700 Stool 550 400 Other: Voiding Method Urinal Urinal - Exam GENERAL: The patient is alert and oriented x3, not in any acute distress. Well developed, well nourished. HEENT: Pupils are round and equally reacting to light. EOMI. No scleral icterus. No conjunctival pallor. Normocephalic, atraumatic. No pharyngeal erythema. No thyromegaly. CARDIOVASCULAR: S1 and S2 present. No murmurs, rubs, or gallops. PULMONARY: Chest is clear to auscultation, no wheezing or crackles. ABDOMEN: Soft, nontender, nondistended, normoactive bowel sounds. No palpable organomegaly. MUSCULOSKELETAL: No joint swelling or deformity. EXTREMITIES: No cyanosis, clubbing, or pedal edema. NEUROLOGICAL: Gross neurological examination did not reveal any focal deficits. -SKIN: Excoriated skin rashes,possible on the whole back (patient refused to move because it was painful so no back inspection was done only barely in the lower back when he raises his leg), improving Satellite-like rash in the bilateral inguinal area . However pink redness extending into the lower abdomen especially on the right side. No petechiae - Labs CBC & Chem 7: 09/05/20 08:48 09/05/20 08:48 Labs: Abnormal Lab Results - Last 24 Hours (Table) 09/04/20 09/05/20 09/05/20 Range/Units 21:17 08:48 08:48 WBC 16.0 H (3.8-10.6) k/uL RBC 3.80 L (4.30-5.90) m/uL Hgb 10.5 L (13.0-17.5) gm/dL Hct 35.0 L (39.0-53.0) % MCHC 30.0 L (31.0-37.0) g/dL RDW 17.3 H (11.5-15.5) % Neutrophils # 13.7 H (1.3-7.7) k/uL Carbon Dioxide 21.5 L (21.6-31.8) mmol/L BUN/Creatinine Ratio 25.71 H (12.00-20.00) Ratio POC Glucose (mg/dL) 152 H (75-99) mg/dL Calcium 7.9 L (8.7-10.3) mg/dL 09/05/20 09/05/20 09/05/20 Range/Units 11:23 11:32 11:46 WBC (3.8-10.6) k/uL RBC (4.30-5.90) m/uL Hgb (13.0-17.5) gm/dL Hct (39.0-53.0) % MCHC (31.0-37.0) g/dL RDW (11.5-15.5) % Neutrophils # (1.3-7.7) k/uL Carbon Dioxide (21.6-31.8) mmol/L BUN/Creatinine Ratio (12.00-20.00) Ratio POC Glucose (mg/dL) 68 L 65 L 68 L (75-99) mg/dL Calcium (8.7-10.3) mg/dL Microbiology - Last 24 Hours (Table) 09/03/20 20:51 Blood Culture - Preliminary Blood No Growth after 24 hours 09/02/20 14:57 Blood Culture - Preliminary Blood No Growth after 48 hours Assessment and Plan Assessment: Cellulitis of the back. Could be bacterial or fungal infection or both Diabetes mellitus with hyperglycemia Recent history of Malfunction of the colostomy and its back due to nearby wound and cellulitis Recent history of pericolostomy Abdominal wall cellulitis Recent history of Hospital-acquired left lower lobe pneumonia, aspiration pneumonia has been ruled out Recent history of non-STEMI, status post cardiac cath and stent placement to the LAD Recent surgical abdominal wound dehiscence and infection. 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 Continue with broad-spectrum antibiotic. He is on vancomycin, we will add Unasyn and Diflucan. We'll add nystatin and Diflucan and ask for wound culture or skin ulcer culture. Consult infectious disease regarding antibiotic and treatment. Follow-up culture results. Pain management Continue with the glipizide and metformin and insulin sliding scale and monitor sugar. Gentle hydration Labs and medication were reviewed.. Continue same treatment. Continue with symptomatic treatment. Resume home medication. Monitor lytes and vitals. DVT and GI prophylaxis. Further recommendations depends on the clinical course of the patient DVT prophylaxis: Subcutaneous heparin GI Prophylaxis: Ppi Prognosis is guarded
[2020-09-05] MEDS: glipiZIDE 5 MG TAB PO SCH (16:51)
[2020-09-05 20:39] LABS: Glucose,Whole Blood 284 mg/dL (75-99)
[2020-09-05] MEDS: ATORVASTATIN 80 MG TAB PO SCH (20:46)
--- NOTE | 2020-09-05 23:39 | PN ---
PROGRESS NOTE DATE OF SERVICE: 09/05/2020 REASON FOR FOLLOWUP: Bilateral groin area cutaneous candidiasis and maxillary cellulitis. INTERVAL HISTORY: The patient is currently afebrile. He is feeling better. Breathing comfortably. Overall pain and discomfort to the back is slightly decreased. No chest pain, shortness of breath or cough. No abdominal pain or diarrhea. PHYSICAL EXAMINATION: Blood pressure 124/72 with pulse 95, temperature 98.6. He is 94% on 2 L nasal cannula. General description is an elderly male lying in bed in no distress. Respiratory system: Unlabored breathing with decreased breath sounds. No wheeze. HEART: S1, S2. Regular rate and rhythm. ABDOMEN: Soft, no tenderness. Examination of the back overall . LABS: Hemoglobin 10.4, white count 16,000. BUN , creatinine 0.7. DIAGNOSTIC IMPRESSION AND PLAN: Patient with bilateral groin area cutaneous candidiasis with back cellulitis . The patient seemed to have shown some clinical response. Currently covered with and Fluconazole along with Solu Medrol already started and continue supportive care. MMODL / IJN: [id number] /
[2020-09-06] MEDS: CLINDAMYCIN 900 MG in DEXTROSE 5% IN WATER 50 ML IVPB SCH ×6 (00:42→18:15)
[2020-09-06] MEDS: MORPHINE SULFATE 4 MG/ML SYRINGE IV PRN ×2 (03:23→10:56)
[2020-09-06] MEDS: ERYTHROMYCIN 5 MG/GM OPHTH OINT 3.5 GM TUBE LEFT EYE SCH ×3 (05:39→16:40)
[2020-09-06 07:08] LABS: Anisocytosis Slight; Basophils % (A) 0 %; Eosinophils % (A) 0 %; HCT 32.8 % (39.0-53.0); HGB 10.1 gm/dL (13.0-17.5); Hypochromasia Marked; Lymphocytes # (A) 0.5 k/uL (1.0-4.8); Lymphocytes % (A) 6 %; MCH 28.6 pg (25.0-35.0); MCHC 30.9 g/dL (31.0-37.0); MCV 92.5 fL (80.0-100.0); Mean Platelet Volume 7.3; Monocytes # (A) 0.3 k/uL (0-1.0); Monocytes % (A) 3 %; Neutrophils # (A) 8.3 k/uL (1.3-7.7); Neutrophils % (A) 90 %; Platelet Count 238 k/uL (150-450); RBC 3.54 m/uL (4.30-5.90); RDW 16.8 % (11.5-15.5); WBC 9.2 k/uL (3.8-10.6)
[2020-09-06 07:16] LABS: Glucose,Whole Blood 314 mg/dL (75-99)
[2020-09-06] MEDS: PANTOPRAZOLE 40 MG TABLET PO SCH (08:38)
[2020-09-06] MEDS: methylPREDNISolone SOD SUCCI 40 MG/ML 1 ML VIAL IV SCH ×2 (08:38→20:54)
[2020-09-06] MEDS: FINASTERIDE 5 MG TAB PO SCH (08:38)
[2020-09-06] MEDS: HEPARIN SODIUM,PORCINE 5,000 UNIT/ML 1 ML VIAL SQ SCH ×2 (08:38→20:54)
[2020-09-06] MEDS: lisinopriL 10 MG TAB PO SCH (08:38)
[2020-09-06] MEDS: metFORMIN 500 MG TAB PO SCH ×2 (08:38→16:37)
[2020-09-06] MEDS: ASPIRIN 325 MG TAB PO SCH (08:38)
[2020-09-06] MEDS: CLOPIDOGREL 75 MG TAB PO SCH (08:39)
[2020-09-06] MEDS: INSULIN ASPART (NovoLOG) 100 UNIT/ML VIAL SQ SCH ×4 (08:39→20:54)
[2020-09-06] MEDS: NYSTATIN 100,000 UNIT/GM POWD 15 GM TOPICAL SCH ×2 (08:41→20:54)
[2020-09-06] MEDS: glipiZIDE 10 MG TAB PO SCH ×2 (08:48→16:37)
[2020-09-06] MEDS: glipiZIDE 5 MG TAB PO SCH (09:31)
[2020-09-06] MEDS: HYDROPHILIC CREAM 180 GM TUBE TOPICAL SCH (09:56)
[2020-09-06 10:18] LABS: African American GFR (CKD) 113.2 (60.0-200.0); Anion Gap 10.3 mmol/L (4.00-12.00); BUN/Creat Ratio 25.71 Ratio (12.00-20.00); Calcium 8.2 mg/dL (8.7-10.3); Carbon Dioxide 23.7 mmol/L (21.6-31.8); Non-African American GFR(CKD) 97.7 (60.0-200.0)
[2020-09-06] MEDS: FLUCONAZOLE IN NACL,ISO-OSM 200 MG in SALINE 1 100ML.BAG IVPB SCH (10:56)
[2020-09-06 11:47] LABS: Glucose,Whole Blood 264 mg/dL (75-99)
[2020-09-06] MEDS: BENZOCAINE/MENTHOL LOZENG 1 EACH LOZENGE MUCOUS MEM PRN (13:50)
[2020-09-06 17:06] LABS: Glucose,Whole Blood 184 mg/dL (75-99)
--- NOTE | 2020-09-06 20:30 | P.PN ---
Subjective This is a pleasant 69 years old male with multiple medical problems as below. He follows up with the [place] [facility]. He was admitted with cellulitis/rash of the back. Patient states that for 2 days he started developing rash with excoriated skin from the upper back down to his buttock it is hurting him to much that he refused to roll over to look at it. His visiting nurse told him its fungal infection. Also he has intertriginous inguinal rash with satellite pattern suspicious for fungal infection. Patient says that he was compliant with his diabetic medication including the glipizide and metformin. He denies chest pain or dyspnea, no change in urine habits or dysuria. No diarrhea through his colostomy back. The skin around his previous abdominal incision is closed and healed. Patient afebrile and vitals are stable. Showing leukocytosis of 20 4.1K coming down to 12.0 K. BMP is unremarkable. Glucose was elevated 713 on admission with high lactic acid of 4.0 came down to 1.8. His sugar is better controlled now. Liver enzymes are not elevated. INR is normal. Urinalysis showed no infection but glucosuria. Acetone is negative. Pelvic x-ray showing no acute fracture. EKG showing sinus tachycardia at [address]-T changes. In the emergency room he got 1 dose of ceftriaxone, fluconazole and Zosyn. And then continued with IV vancomycin. Also he got 1 L of normal saline 09/04/2020 Patient is awake and with no new complaint however he still have extensive lesions in his whole back, patient lesions are painful and he does not want to roll around candidate, his rash in the generator area is slightly improving with nystatin. But also he has some pinkish rash in the lower abdomen especially in the right side. No mouth ulcers. He had a fever yesterday of 101, today he is afebrile, his temperature is 90.5. Blood pressure is stable of 101/65. His creatinine is normal at 0.6. Lactic acid was normal yesterday is 1.2. Glucose is controlled. Discussed with the staff to try to obtain a culture from the area. Infectious disease input is appreciated. There going to continue with Diflucan and Unasyn. Discontinue vancomycin for now. Also we'll ask for dermatology service evaluation. Wound care team are on the case as well He is on normal saline at 130 mL per 09/05/2020 Patient still been treated for cellulitis in his whole back with excoriation, he is still refusing to be examined, however only infectious disease team are examined the patient to limit the amount he has to move as its painful for him. His inguinal rash is improving however his keep developing rash in his upper [address] and abdomen which looks more of ALLERGIC reaction, excess disease team changed his antibiotics to clindamycin and cefazolin while Diflucan He is already on prednisone 5 mg 3-4 times a day which is Dr. Mcleod 40 mg twice daily Hemodynamically his is stable. He has leukocytosis but he is on steroids as well. Hemoglobin is stable at 10.5. BMP is unremarkable. Glucose was running low around 60s, his been corrected with the staff. We will lower his glipizide from 10 mg to 5 mg twice daily Also continue with nystatin powder Dermatology team were consulted and is pending 09/06/2020 Patient is with cellulitis in the back, refused me to examine him since admission, however his rash in the inguinal area is improving and the other rash in the lower abdomen and upper chest looks stable or slightly improving as is less reddened, no significant itching. No new areas of rash. No other c omplaints Glucose is better controlled after adding Solu-Medrol and decrease in glipizide to 10 mg twice daily Patient remains on Broad spectrum antibiotics with clindamycin and cefazolin and Diflucan as well as topical nystatin. Also he is on Solu-Medrol Infectious disease input is appreciated Objective - Vital Signs Vital signs: Vital Signs Temp 98.0 F 09/06/20 16:00 Pulse 92 09/06/20 16:00 Resp 22 09/06/20 16:00 BP 105/54 09/06/20 16:00 Pulse Ox 92 L 09/06/20 16:00 Intake & Output 09/06/20 09/06/20 09/07/20 06:59 18:59 06:59 Intake Total 920 Output Total 1100 400 Balance -180 -400 Weight 91.5 kg Intake: Intake, IV Titration 100 Amount Clindamycin 900 mg In 50 Dextrose 5% in Water 50 ml @ 50 mls/hr IVPB Q8HR [facility] Rx#:[id number] ceFAZolin 2 gm In Sodium 50 Chloride 0.9% 50 ml @ 100 mls/hr IVPB Q8HR JOHN Rx# :[id number] Oral 820 Output: Urine 1100 400 Other: # Bowel Movements 1 - Exam GENERAL: The patient is alert and oriented x3, not in any acute distress. Well developed, well nourished. HEENT: Pupils are round and equally reacting to light. EOMI. No scleral icterus. No conjunctival pallor. Normocephalic, atraumatic. No pharyngeal erythema. No thyromegaly. CARDIOVASCULAR: S1 and S2 present. No murmurs, rubs, or gallops. PULMONARY: Chest is clear to auscultation, no wheezing or crackles. ABDOMEN: Soft, nontender, nondistended, normoactive bowel sounds. No palpable organomegaly. MUSCULOSKELETAL: No joint swelling or deformity. EXTREMITIES: No cyanosis, clubbing, or pedal edema. NEUROLOGICAL: Gross neurological examination did not reveal any focal deficits. -SKIN: Excoriated skin rashes,possible on the whole back (patient refused to move because it was painful so no back inspection was done only barely in the lower back when he raises his leg), improving Satellite-like rash in the bilateral inguinal area . However pink redness extending into the lower abdomen especially on the right side. No petechiae - Labs CBC & Chem 7: 09/06/20 06:39 09/06/20 06:39 Labs: Abnormal Lab Results - Last 24 Hours (Table) 09/05/20 09/06/20 09/06/20 Range/Units 20:26 06:39 06:39 RBC 3.54 L (4.30-5.90) m/uL Hgb 10.1 L (13.0-17.5) gm/dL Hct 32.8 L (39.0-53.0) % MCHC 30.9 L (31.0-37.0) g/dL RDW 16.8 H (11.5-15.5) % Neutrophils # 8.3 H (1.3-7.7) k/uL Lymphocytes # 0.5 L (1.0-4.8) k/uL BUN/Creatinine Ratio 25.71 H (12.00-20.00) Ratio Glucose 354 H (70-110) mg/dL POC Glucose (mg/dL) 284 H (75-99) mg/dL Calcium 8.2 L (8.7-10.3) mg/dL 09/06/20 09/06/20 09/06/20 Range/Units 07:03 11:42 17:01 RBC (4.30-5.90) m/uL Hgb (13.0-17.5) gm/dL Hct (39.0-53.0) % MCHC (31.0-37.0) g/dL RDW (11.5-15.5) % Neutrophils # (1.3-7.7) k/uL Lymphocytes # (1.0-4.8) k/uL BUN/Creatinine Ratio (12.00-20.00) Ratio Glucose (70-110) mg/dL POC Glucose (mg/dL) 314 H 264 H 184 H (75-99) mg/dL Calcium (8.7-10.3) mg/dL Microbiology - Last 24 Hours (Table) 09/02/20 14:57 Blood Culture - Preliminary Blood No Growth after 96 hours 09/03/20 20:51 Blood Culture - Preliminary Blood No Growth after 48 hours Assessment and Plan Assessment: Cellulitis of the back. Could be bacterial or fungal infection or both Fungal rash in the groin area, improving Rash in the lower abdomen and upper chest, stable Diabetes mellitus with hyperglycemia Recent history of Malfunction of the colostomy and its back due to nearby wound and cellulitis Recent history of pericolostomy Abdominal wall cellulitis Recent history of Hospital-acquired left lower lobe pneumonia, aspiration pneumonia has been ruled out Recent history of non-STEMI, status post cardiac cath and stent placement to the LAD Recent surgical abdominal wound dehiscence and infection. 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 Continue with broad-spectrum antibiotic. He is on cefazolin and clindamycin and Diflucan. Also continue with nystatin continue with Solu-Medrol. Pain management. Monitor glucose. Infectious disease team on the case Continue with the glipizide and metformin and insulin sliding scale and monitor sugar. Gentle hydration Labs and medication were reviewed.. Continue same treatment. Continue with symptomatic treatment. Resume home medication. Monitor lytes and vitals. DVT and GI prophylaxis. Further recommendations depends on the clinical course of the patient DVT prophylaxis: Subcutaneous heparin GI Prophylaxis: Ppi Prognosis is guarded
[2020-09-06 20:41] LABS: Glucose,Whole Blood 236 mg/dL (75-99)
[2020-09-06] MEDS: ATORVASTATIN 80 MG TAB PO SCH (20:54)
[2020-09-07] MEDS: ERYTHROMYCIN 5 MG/GM OPHTH OINT 3.5 GM TUBE LEFT EYE SCH ×5 (00:11→23:32)
[2020-09-07] MEDS: CLINDAMYCIN 900 MG in DEXTROSE 5% IN WATER 50 ML IVPB SCH ×6 (01:32→17:17)
--- NOTE | 2020-09-07 04:17 | PN ---
PROGRESS NOTE DATE OF SERVICE: 09/06/2020. REASON FOR FOLLOWUP: Bilateral groin cutaneous candidiasis and back cellulitis. INTERVAL HISTORY: The patient is currently afebrile. He mentioned he is feeling slightly better today. Overall, pain to scrotal and back area has improved. No chest pain, shortness of breath or cough. No abdominal pain or diarrhea. PHYSICAL EXAMINATION: Blood pressure is 106/61 with a pulse of 92, temperature 98.3. He is 95% on room air. General description is an elderly male lying in bed in no distress. RESPIRATORY SYSTEM: Unlabored breathing, clear to auscultation anteriorly. HEART: S1, S2. Regular rate and rhythm. Examination of back area overall swelling and redness has improved. LABS: Hemoglobin is 10.1, white count 9.2, BUN of 18, creatinine 0.7. DIAGNOSTIC IMPRESSION AND PLAN: Patient with bilateral groin cutaneous candidiasis, extensive cellulitis of the back. Clinical response with clindamycin to continue along with nystatin powder and Diflucan for the groin cutaneous candidiasis and will evaluate the patient tomorrow. MMODL / IJN: [id number] /
[2020-09-07 06:29] LABS: Anisocytosis Slight; Basophils # (A) 0.1 k/uL (0-0.2); Basophils % (A) 0 %; Eosinophils % (A) 0 %; HCT 34.5 % (39.0-53.0); HGB 10.9 gm/dL (13.0-17.5); Hypochromasia Slight; Lymphocytes % (A) 8 %; MCH 28.2 pg (25.0-35.0); MCHC 31.5 g/dL (31.0-37.0); MCV 89.7 fL (80.0-100.0); Mean Platelet Volume 7.3; Monocytes # (A) 0.6 k/uL (0-1.0); Monocytes % (A) 5 %; Neutrophils # (A) 10.9 k/uL (1.3-7.7); Neutrophils % (A) 86 %; Platelet Count 284 k/uL (150-450); RBC 3.84 m/uL (4.30-5.90); RDW 16.8 % (11.5-15.5); WBC 12.6 k/uL (3.8-10.6)
[2020-09-07 07:03] LABS: Glucose,Whole Blood 287 mg/dL (75-99)
[2020-09-07] MEDS: glipiZIDE 10 MG TAB PO SCH ×2 (08:21→17:18)
[2020-09-07] MEDS: INSULIN ASPART (NovoLOG) 100 UNIT/ML VIAL SQ SCH ×4 (08:21→21:04)
[2020-09-07] MEDS: PANTOPRAZOLE 40 MG TABLET PO SCH (08:22)
[2020-09-07] MEDS: ASPIRIN 325 MG TAB PO SCH (08:22)
[2020-09-07] MEDS: metFORMIN 500 MG TAB PO SCH ×2 (08:22→17:18)
[2020-09-07] MEDS: FLUCONAZOLE 100 MG TAB PO SCH (08:23)
[2020-09-07] MEDS: HYDROPHILIC CREAM 180 GM TUBE TOPICAL SCH (08:23)
[2020-09-07] MEDS: methylPREDNISolone SOD SUCCI 40 MG/ML 1 ML VIAL IV SCH ×2 (08:23→21:04)
[2020-09-07] MEDS: lisinopriL 10 MG TAB PO SCH (08:23)
[2020-09-07] MEDS: CLOPIDOGREL 75 MG TAB PO SCH (08:23)
[2020-09-07] MEDS: HEPARIN SODIUM,PORCINE 5,000 UNIT/ML 1 ML VIAL SQ SCH ×2 (08:23→21:04)
[2020-09-07] MEDS: FINASTERIDE 5 MG TAB PO SCH (08:23)
[2020-09-07] MEDS: NYSTATIN 100,000 UNIT/GM POWD 15 GM TOPICAL SCH ×2 (08:24→21:04)
[2020-09-07] MEDS: MORPHINE SULFATE 4 MG/ML SYRINGE IV PRN ×2 (08:24→12:23)
[2020-09-07 09:23] LABS: African American GFR (CKD) 107.1 (60.0-200.0); BUN/Creat Ratio 32.5 Ratio (12.00-20.00); Calcium 8.2 mg/dL (8.7-10.3); Non-African American GFR(CKD) 92.4 (60.0-200.0); Potassium 4.4 mmol/L (3.5-5.5)
[2020-09-07 11:59] LABS: Glucose,Whole Blood 228 mg/dL (75-99)
[2020-09-07 16:46] LABS: Glucose,Whole Blood 294 mg/dL (75-99)
[2020-09-07 20:39] LABS: Glucose,Whole Blood 221 mg/dL (75-99)
[2020-09-07] MEDS: ATORVASTATIN 80 MG TAB PO SCH (21:04)
[2020-09-07] MEDS: CHOLESTYRAMINE (WITH SUGAR) 4 GM PACKET PO SCH (23:31)
--- NOTE | 2020-09-08 01:20 | PN ---
PROGRESS NOTE DATE OF SERVICE: 09/07/2020 REASON FOR FOLLOWUP: Bilateral groin cutaneous candidiasis and back cellulitis. INTERVAL HISTORY: The patient is currently afebrile. The patient is feeling better. Overall pain to back area has decreased. No chest pain or cough. No abdominal pain. The patient did have diarrhea. PHYSICAL EXAMINATION: Blood pressure 131/86, pulse of 103, temperature 97.7. He is 96% on room air. General description is an elderly male lying in bed in no distress. RESPIRATORY SYSTEM: Unlabored breathing, decreased intensity of breath sounds. No wheeze. HEART: S1, S2. Regular rate and rhythm. ABDOMEN: Soft, no tenderness. LABS: Hemoglobin is 10.9, white count 12.6. BUN of 26, creatinine 0.8. DIAGNOSTIC IMPRESSION AND PLAN: Patient with bilateral groin cutaneous candidiasis and back cellulitis. Patient is covered with cefazolin and Diflucan to continue. Will discontinue the clindamycin in view of the diarrhea. Add Questran for symptomatic relief. Continue local wound care as ordered and continue supportive care. MMODL / IJN: [id number] /
[2020-09-08] MEDS: ERYTHROMYCIN 5 MG/GM OPHTH OINT 3.5 GM TUBE LEFT EYE SCH ×3 (05:28→17:25)
[2020-09-08 07:29] LABS: Glucose,Whole Blood 276 mg/dL (75-99)
[2020-09-08] MEDS: INSULIN ASPART (NovoLOG) 100 UNIT/ML VIAL SQ SCH ×4 (07:54→21:11)
[2020-09-08] MEDS: methylPREDNISolone SOD SUCCI 40 MG/ML 1 ML VIAL IV SCH ×2 (07:54→21:12)
[2020-09-08] MEDS: ASPIRIN 325 MG TAB PO SCH (07:54)
[2020-09-08] MEDS: HEPARIN SODIUM,PORCINE 5,000 UNIT/ML 1 ML VIAL SQ SCH ×2 (07:54→21:12)
[2020-09-08] MEDS: lisinopriL 10 MG TAB PO SCH (07:55)
[2020-09-08] MEDS: glipiZIDE 10 MG TAB PO SCH ×2 (07:55→17:25)
[2020-09-08] MEDS: FLUCONAZOLE 100 MG TAB PO SCH (07:55)
[2020-09-08] MEDS: FINASTERIDE 5 MG TAB PO SCH (07:55)
[2020-09-08] MEDS: CLOPIDOGREL 75 MG TAB PO SCH (07:55)
[2020-09-08] MEDS: metFORMIN 500 MG TAB PO SCH ×2 (07:55→17:25)
[2020-09-08] MEDS: PANTOPRAZOLE 40 MG TABLET PO SCH (07:55)
[2020-09-08] MEDS: NYSTATIN 100,000 UNIT/GM POWD 15 GM TOPICAL SCH ×2 (07:56→21:13)
[2020-09-08] MEDS: HYDROPHILIC CREAM 180 GM TUBE TOPICAL SCH (07:56)
[2020-09-08 11:26] LABS: Glucose,Whole Blood 177 mg/dL (75-99)
--- NOTE | 2020-09-08 11:59 | P.PN ---
Subjective This is a pleasant 69 years old male with multiple medical problems as below. [facility] He was admitted with cellulitis/rash of the back. Patient states that for 2 days he started developing rash with excoriated skin from the upper back down to his buttock it is hurting him to much that he refused to roll over to look at it. His visiting nurse told him its fungal infection. Also he has intertriginous inguinal rash with satellite pattern suspicious for fungal infection. Patient says that he was compliant with his diabetic medication including the glipizide and metformin. He denies chest pain or dyspnea, no change in urine habits or dysuria. No diarrhea through his colostomy back. The skin around his previous abdominal incision is closed and healed. Patient afebrile and vitals are stable. Showing leukocytosis of 20 4.1K coming down to 12.0 K. BMP is unremarkable. Glucose was elevated 713 on admission with high lactic acid of 4.0 came down to 1.8. His sugar is better controlled now. Liver enzymes are not elevated. INR is normal. Urinalysis showed no infection but glucosuria. Acetone is negative. Pelvic x-ray showing no acute fracture. EKG showing sinus tachycardia at [address]-T changes. In the emergency room he got 1 dose of ceftriaxone, fluconazole and Zosyn. And then continued with IV vancomycin. Also he got 1 L of normal saline 09/04/2020 Patient is awake and with no new complaint however he still have extensive lesions in his whole back, patient lesions are painful and he does not want to roll around candidate, his rash in the generator area is slightly improving with nystatin. But also he has some pinkish rash in the lower abdomen especially in the right side. No mouth ulcers. He had a fever yesterday of 101, today he is afebrile, his temperature is 90.5. Blood pressure is stable of 101/65. His creatinine is normal at 0.6. Lactic acid was normal yesterday is 1.2. Glucose is controlled. Discussed with the staff to try to obtain a culture from the area. Infectious disease input is appreciated. There going to continue with Diflucan and Unasyn. Discontinue vancomycin for now. Also we'll ask for dermatology service evaluation. Wound care team are on the case as well He is on normal saline at 130 mL per 09/05/2020 Patient still been treated for cellulitis in his whole back with excoriation, he is still refusing to be examined, however only infectious disease team are examined the patient to limit the amount he has to move as its painful for him. His inguinal rash is improving however his keep developing rash in his upper jes[address] and abdomen which looks more of ALLERGIC reaction, excess disease team changed his antibiotics to clindamycin and cefazolin while Diflucan He is already on prednisone 5 mg 3-4 times a day which is Dr. Mcleod 40 mg twice daily Hemodynamically his is stable. He has leukocytosis but he is on steroids as well. Hemoglobin is stable at 10.5. BMP is unremarkable. Glucose was running low around 60s, his been corrected with the staff. We will lower his glipizide from 10 mg to 5 mg twice daily Also continue with nystatin powder Dermatology team were consulted and is pending 09/06/2020 Patient is with cellulitis in the back, refused me to examine him since admission, however his rash in the inguinal area is improving and the other rash in the lower abdomen and upper chest looks stable or slightly improving as is less reddened, no significant itching. No new areas of rash. No other c omplaints Glucose is better controlled after adding Solu-Medrol and decrease in glipizide to 10 mg twice daily Patient remains on Broad spectrum antibiotics with clindamycin and cefazolin and Diflucan as well as topical nystatin. Also he is on Solu-Medrol Infectious disease input is appreciated 09/07/2020 Today patient has significant improvement in his rash in all 3 major areas, and the back, also in the groin and in the front trunk (left upper chest and right lower abdomen) Rash becoming more pinkish with scaling, none itching, today is the first day patient is sitting in a recliner, he still have pain from his back rash Keep the patient on antibiotics per ID team and IV Solu-Medrol. Sugar is better controlled Objective - Vital Signs Vital signs: Vital Signs Temp 98.2 F 09/07/20 14:50 Pulse 66 09/07/20 14:50 Resp 18 09/07/20 14:50 BP 125/82 09/07/20 14:50 Pulse Ox 95 09/07/20 14:50 Intake & Output 09/06/20 09/07/20 09/07/20 18:59 06:59 18:59 Output Total 400 1400 Balance -400 -1400 Weight 92.8 kg Output: Urine 400 1400 Other: Voiding Method Urinal Urinal # Bowel Movements 1 - Exam GENERAL: The patient is alert and oriented x3, not in any acute distress. Well developed, well nourished. HEENT: Pupils are round and equally reacting to light. EOMI. No scleral icterus. No conjunctival pallor. Normocephalic, atraumatic. No pharyngeal erythema. No thyromegaly. CARDIOVASCULAR: S1 and S2 present. No murmurs, rubs, or gallops. PULMONARY: Chest is clear to auscultation, no wheezing or crackles. ABDOMEN: Soft, nontender, nondistended, normoactive bowel sounds. No palpable organomegaly. MUSCULOSKELETAL: No joint swelling or deformity. EXTREMITIES: No cyanosis, clubbing, or pedal edema. NEUROLOGICAL: Gross neurological examination did not reveal any focal deficits. -SKIN: Excoriated skin rashes,possible on the whole back (patient refused to move because it was painful so no back inspection was done only barely in the lower back when he raises his leg), improving Satellite-like rash in the bilater al inguinal area . However pink redness extending into the lower abdomen especially on the right side. No petechiae - Labs CBC & Chem 7: 09/07/20 06:06 09/07/20 06:06 Labs: Abnormal Lab Results - Last 24 Hours (Table) 09/06/20 09/07/20 09/07/20 Range/Units 20:39 06:06 06:06 WBC 12.6 H (3.8-10.6) k/uL RBC 3.84 L (4.30-5.90) m/uL Hgb 10.9 L (13.0-17.5) gm/dL Hct 34.5 L (39.0-53.0) % RDW 16.8 H (11.5-15.5) % Neutrophils # 10.9 H (1.3-7.7) k/uL BUN/Creatinine Ratio 32.50 H (12.00-20.00) Ratio Glucose 273 H (70-110) mg/dL POC Glucose (mg/dL) 236 H (75-99) mg/dL Calcium 8.2 L (8.7-10.3) mg/dL 09/07/20 09/07/20 09/07/20 Range/Units 07:01 11:57 16:44 WBC (3.8-10.6) k/uL RBC (4.30-5.90) m/uL Hgb (13.0-17.5) gm/dL Hct (39.0-53.0) % RDW (11.5-15.5) % Neutrophils # (1.3-7.7) k/uL BUN/Creatinine Ratio (12.00-20.00) Ratio Glucose (70-110) mg/dL POC Glucose (mg/dL) 287 H 228 H 294 H (75-99) mg/dL Calcium (8.7-10.3) mg/dL Microbiology - Last 24 Hours (Table) 09/02/20 14:57 Blood Culture - Preliminary Blood No Growth after 120 hours 09/03/20 20:51 Blood Culture - Preliminary Blood No Growth after 72 hours Assessment and Plan Assessment: Cellulitis of the back. Could be bacterial or fungal infection or both Fungal rash in the groin area, improving Rash in the lower abdomen and upper chest, stable Diabetes mellitus with hyperglycemia Recent history of Malfunction of the colostomy and its back due to nearby wound and cellulitis Recent history of pericolostomy Abdominal wall cellulitis Recent history of Hospital-acquired left lower lobe pneumonia, aspiration pneumonia has been ruled out Recent history of non-STEMI, status post cardiac cath and stent placement to the LAD Recent surgical abdominal wound dehiscence and infection. 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 Continue with broad-spectrum antibiotic. He is on cefazolin and clindamycin and Diflucan. Also continue with nystatin continue with Solu-Medrol. Pain management. Monitor glucose. Infectious disease team on the case Continue with the glipizide and metformin and insulin sliding scale and monitor sugar. Gentle hydration Labs and medication were reviewed.. Continue same treatment. Continue with symptomatic treatment. Resume home medication. Monitor lytes and vitals. DVT and GI prophylaxis. Further recommendations depends on the clinical course of the patient DVT prophylaxis: Subcutaneous heparin GI Prophylaxis: Ppi Prognosis is guarded
[2020-09-08] MEDS: CHOLESTYRAMINE (WITH SUGAR) 4 GM PACKET PO SCH ×2 (12:26→17:25)
--- NOTE | 2020-09-08 13:58 | CDI ---
Documentation Clarification Form Date: 09/08/2020 01:21:55 PM From: Gail Chahal RN CCDS Admit Date: 09/02/2020 05:02:00 PM Patient Name: Newton Betancourt Visit Number: [id number] Discharge Date: ATTENTION: The Clinical Documentation Specialists (CDI) and [facility] Coding Staff appreciate your assistance in clarifying documentation. Please respond to the clarification below the line at the bottom and electronically sign. The CDI & [facility] Coding staff will review the response and follow-up if needed. Please note: Queries are made part of the Legal Health Record. If you have any questions, please contact the author of this message via ITS. Dr. Park Sheet Cellulitis of the back is documented in the H&P 09/03 and following Internal Medicine Progress notes through 09/07. Patient history/risk factors: 69-year male presents to the ED for evaluation of his back which is getting worse over the last week. Medical History: DM; CVA/TIA; Crohns disease; HTN; Renal Disease and Mead Parkinson White syndrome. Clinical Indicators: 09/02 Labs: Wbc 24.1; Neutrophils 22.1; Na 128; Glucose 713; Lactic acid 4.0 09/02 Vital Signs: B/P 97/71; HR 126; RR 20; Temp 98.0 F Oral; SpO2 94% room air Treatment: Medication: 09/02 Rocephin Ivpb x1; Vancomycin Ivpb Dc 09/03; 09/03 Triad Cream; Ampicillin Sodium Ivpb Q6HR d/c 09/04; 09/04 Cefazolin Ivpb Q8HR; Clindamycin Phosphate Ivpb Q8HR d// Consults: Wound Care 09/03: Excoriation of back; Cellulitis. Entire back excoriation with bleeding is noted. ID Progress Note 09/04: Patient with extensive back cellulitis Please document any body system complications or specific manifestations related to the diabetes: Back Cellulitis Associated with Diabetes No association with Diabetes Other condition Unable to Determine Infectious agent: Bacteria Virus Other, please specify: Unable to determine 09/[address] Gabriel: Diabetes mellitus with hyperglycemia, patient will be started on long-acting insulin.Non-improvement of his cellulitis is most probably related to his uncontrolled blood sugars (Last Revision: June 2017) MTDD
--- NOTE | 2020-09-08 14:11 | CDI ---
Documentation Clarification Form Date: 09/08/2020 01:59:28 PM From: Gail Chahal RN CCDS Admit Date: 09/02/2020 05:02:00 PM Patient Name: Newton Betancourt Visit Number: [id number] Discharge Date: ATTENTION: The Clinical Documentation Specialists (CDI) and [facility] Coding Staff appreciate your assistance in clarifying documentation. Please respond to the clarification below the line at the bottom and electronically sign. The CDI & [facility] Coding staff will review the response and follow-up if needed. Please note: Queries are made part of the Legal Health Record. If you have any questions, please contact the author of this message via ITS. Dr. Xavier Stern Sepsis is documented in the ED note 09/02 And in the ID consult Note 09/03 Patient admitted to hospital with sepsis History/Risk Factors: 69-year male presents to the ED for evaluation of his back which is getting worse over the last week. Medical History: DM; CVA/TIA; Crohns disease; HTN; Renal Disease and Mead Parkinson White syndrome. Clinical Indicators: 09/02 Labs: Wbc 24.1; Neutrophils 22.1; Na 128; Glucose 713; Lactic acid 4.0 09/02 Vital Signs: B/P 97/71; HR 126; RR 20; Temp 98.0 F Oral; SpO2 94% room air 09/02 Blood cultures: No growth after 120 hours Treatment: ID Progress Note 09/04: Patient with extensive back cellulitis. Wound Care 09/03: Excoriation of back; Cellulitis. Entire back excoriation with bleeding is noted Antibiotics: 09/02 Rocephin Ivpb x1; Vancomycin Ivpb Dc 09/03; 09/03 Triad Cream; Ampicillin Sodium Ivpb Q6HR d/c 09/04; 09/04 Cefazolin Ivpb Q8HR; Clindamycin Phosphate Ivpb Q8HR d//14 IV Bolus: 09/02 2L 0.9ns bolus In your professional opinion, please clarify if these findings signify one of the following conditions, whether the condition is POA, and cause, if known: Sepsis ruled out Sepsis Other, please specify Unable to determine Present on Admission Yes SIRS Criteria (2 or more of the following may indicate SIRS): -Temperature < 96.8F (36C) or > 101.0F (38.3C) -Heart Rate > 90 bpm -Respiratory Rate > 20 breaths/min or PaCO2 < 32 mmHg -White Blood Cell Count > 12,000 or < 4,000 cells/mm3 or > 10% bands -Lactate >2.0 mmol/L (>4.0 is equivalent to septic shock) (Last Revision: December 2017) 09/[address] Gabriel: Patient is admitted with sepsis secondary to cellulitis. JOHND
--- NOTE | 2020-09-08 14:24 | P.PN ---
Subjective 69 years old male with multiple medical problems as below. He [facility] up with the [place] [facility]. He was admitted with cellulitis/rash of the back. Patient states that for 2 days he started developing rash with excoriated skin from the upper back down to his buttock it is hurting him to much that he refused to roll over to look at it. His visiting nurse told him its fungal infection. Also he has intertriginous inguinal rash with satellite pattern suspicious for fungal infection. Patient says that he was compliant with his diabetic medication including the glipizide and metformin. He denies chest pain or dyspnea, no change in urine habits or dysuria. No diarrhea through his colostomy back. The skin around his previous abdominal in cision is closed and healed. Patient afebrile and vitals are stable. Showing leukocytosis of 20 4.1K coming down to 12.0 K. BMP is unremarkable. Glucose was elevated 713 on admission with high lactic acid of 4.0 came down to 1.8. His sugar is better controlled now. Liver enzymes are not elevated. INR is normal. Urinalysis showed no infection but glucosuria. Acetone is negative. Pelvic x-ray showing no acute fracture. EKG showing sinus tachycardia at [address]-T changes. In the emergency room he got 1 dose of ceftriaxone, fluconazole and Zosyn. And then continued with IV vancomycin. Also he got 1 L of normal saline 09/04/2020 Patient is awake and with no new complaint however he still have extensive lesions in his whole back, patient lesions are painful and he does not want to roll around candidate, his rash in the generator area is slightly improving with nystatin. But also he has some pinkish rash in the lower abdomen especially in the right side. No mouth ulcers. He had a fever yesterday of 101, today he is afebrile, his temperature is 90.5. Blood pressure is stable of 101/65. His creatinine is normal at 0.6. Lactic acid was normal yesterday is 1.2. Glucose is controlled. Discussed with the staff to try to obtain a culture from the area. Infectious disease input is appreciated. There going to continue with Diflucan and Unasyn. Discontinue vancomycin for now. Also we'll ask for dermatology service evaluation. Wound care team are on the case as well He is on normal saline at 130 mL per 09/05/2020 Patient still been treated for cellulitis in his whole back with excoriation, he is still refusing to be examined, however only infectious disease team are examined the patient to limit the amount he has to move as its painful for him. His inguinal rash is improving however his keep developing rash in his upper chest and abdomen which looks more of ALLERGIC reaction, excess disease team changed his antibiotics to clindamycin and cefazolin while Diflucan He is already on prednisone 5 mg 3-4 times a day which is Dr. Mcleod 40 mg twice daily Hemodynamically his is stable. He has leukocytosis but he is on steroids as well. Hemoglobin is stable at 10.5. BMP is unremarkable. Glucose was running low around 60s, his been corrected with the staff. We will lower his glipizide from 10 mg to 5 mg twice daily Also continue with nystatin powder Dermatology team were consulted and is pending 09/06/2020 Patient is with cellulitis in the back, refused me to examine him since admission, however his rash in the inguinal area is improving and the other rash in the lower abdomen and upper chest looks stable or slightly improving as is less reddened, no significant itching. No new areas of rash. No other complaints Glucose is better controlled after adding Solu-Medrol and decrease in glipizide to 10 mg twice daily Patient remains on Broad spectrum antibiotics with clindamycin and cefazolin and Diflucan as well as topical nystatin. Also he is on Solu-Medrol Infectious disease input is appreciated 09/07/2020 Today patient has significant improvement in his rash in all 3 major areas, and the back, also in the groin and in the front trunk (left upper chest and right lower abdomen) Rash becoming more pinkish with scaling, none itching, today is the first day patient is sitting in a recliner, he still have pain from his back rash Keep the patient on antibiotics per ID team and IV Solu-Medrol. Sugar is better controlled 09/08/2020 Patient still has extensive cellulitis of the back patient is on Diflucan and ce ftezole and for bacterial cellulitis as well as fungal cellulitis competent. Clindamycin was discontinued because of diarrhea diarrhea improved. Constitutional: Denied any fatigue denied any fever. Cardio vascular: denied any chest pain, palpitations Gastrointestinal denied any nausea vomiting Pulmonary: Denied any shortness of breath cough Neurologic denied any new focal deficits All inpatient medications were reviewed and appropriate changes in these medications as dictated in the interval history and assessment and plan. Objective - Vital Signs Vital signs: Vital Signs Temp 98.2 F 09/08/20 08:05 Pulse 79 09/08/20 08:05 Resp 17 09/08/20 08:05 BP 155/94 09/08/20 08:05 Pulse Ox 92 L 09/08/20 08:05 Intake & Output 09/07/20 09/08/20 09/08/20 18:59 06:59 18:59 Output Total 1450 100 Balance -1450 -100 Output: Urine 850 Stool 600 100 Other: Voiding Method Urinal Urinal Urinal - Exam PHYSICAL EXAMINATION: GENERAL: The patient is alert and oriented x3, not in any acute distress. Well developed, well nourished. HEENT: Pupils are round and equally reacting to light. EOMI. No scleral icterus. No conjunctival pallor. Normocephalic, atraumatic. No pharyngeal erythema. No thyromegaly. CARDIOVASCULAR: S1 and S2 present. No murmurs, rubs, or gallops. PULMONARY: Chest is clear to auscultation, no wheezing or crackles. ABDOMEN: Soft, nontender, nondistended, normoactive bowel sounds. No palpable organomegaly. MUSCULOSKELETAL: No joint swelling or deformity. EXTREMITIES: No cyanosis, clubbing, or pedal edema. NEUROLOGICAL: Gross neurological examination did not reveal any focal deficits. SKIN: Since his cellulitis of the back with excoriated skin extensive redness with the discharge. - Labs CBC & Chem 7: 09/07/20 06:06 09/07/20 06:06 Labs: Abnormal Lab Results - Last 24 Hours (Table) 09/07/20 09/07/20 09/08/20 Range/Units 16:44 20:37 07:28 POC Glucose (mg/dL) 294 H 221 H 276 H (75-99) mg/dL 09/08/20 Range/Units 11:25 POC Glucose (mg/dL) 177 H (75-99) mg/dL Microbiology - Last 24 Hours (Table) 09/03/20 20:51 Blood Culture - Preliminary Blood No Growth after 96 hours 09/02/20 14:57 Blood Culture - Preliminary Blood No Growth after 120 hours Assessment and Plan Plan: Cellulitis of the back. Could be bacterial or fungal infection or both. Patient is admitted with sepsis secondary to cellulitis. She and is presently on ceftezolin and the Diflucan Fungal rash in the groin area, improving Diabetes mellitus with hyperglycemia, patient will be started on long-acting insulin. Non-improvement of his cellulitis is most probably related to his uncontrolled blood sugars Recent history of Malfunction of the colostomy and its back due to nearby wound and cellulitis Recent history of non-STEMI, status post cardiac cath and stent placement to the LAD Recent surgical abdominal wound dehiscence and infection. CT of the abdomen:2 cystic fluid collection in the abdomen, no need for surgical intervention per surgery team . Patient presently has a colostomy -Diarrhea secondary to antibiotics clindamycin was discontinued patient is on Questran COPD with no acute exacerbation recent history of Colonic stricture secondary to Crohn's disease status post subtotal colectomy and ileostomy formation Hyperlipidemia Hypertension History of CVA/TIA with some residual weakness Hearing difficulty Chronic back pain Leukocytosis secondary to steroid effect and reactive from surgery
[2020-09-08] MEDS: MORPHINE SULFATE 4 MG/ML SYRINGE IV PRN (15:35)
[2020-09-08 16:23] LABS: Glucose,Whole Blood 274 mg/dL (75-99)
[2020-09-08] MEDS ORDERED: INSULIN DETEMIR (LEVEMIR) 100 UNIT/ML SYR SQ SCH (21:00)
[2020-09-08 21:02] LABS: Glucose,Whole Blood 256 mg/dL (75-99)
[2020-09-08] MEDS: ATORVASTATIN 80 MG TAB PO SCH (21:12)
--- NOTE | 2020-09-08 23:17 | PN ---
PROGRESS NOTE DATE OF SERVICE: 09/08/2020 REASON FOR FOLLOWUP: Bilateral groin cutaneous candidiasis and back cellulitis. INTERVAL HISTORY: The patient is currently afebrile. The patient is breathing comfortably. Overall pain and discomfort to the back is slightly decreased. No chest pain or cough. No abdominal pain. PHYSICAL EXAMINATION: Blood pressure 149/92 with a pulse of 83, temperature 98.4. He is 92% on room air. General description is an elderly male lying in bed in no distress. RESPIRATORY SYSTEM: Unlabored breathing. Clear to auscultation anteriorly. HEART: S1, S2. Regular rate and rhythm. ABDOMEN: Soft. No tenderness. Groin area swelling and redness has decreased. Back area redness has decreased. DIAGNOSTIC IMPRESSION AND PLAN: Patient with bilateral groin cutaneous candidiasis and secondary cellulitis on the back area. The patient is covered with cefazolin, Diflucan and nystatin powder; to continue along with Triad cream to the back, and keep the area off pressure. Questions and concerns were answered. MMODL / IJN: [id number] /
[2020-09-09] MEDS: ERYTHROMYCIN 5 MG/GM OPHTH OINT 3.5 GM TUBE LEFT EYE SCH ×4 (00:04→17:30)
[2020-09-09] MEDS: MORPHINE SULFATE 4 MG/ML SYRINGE IV PRN ×2 (01:21→10:12)
[2020-09-09 03:56] LABS: Glucose,Whole Blood 245 mg/dL (75-99)
[2020-09-09 06:57] LABS: Anisocytosis Slight; HCT 33.3 % (39.0-53.0); HGB 10.6 gm/dL (13.0-17.5); Hypochromasia Slight; MCH 28.7 pg (25.0-35.0); MCHC 31.9 g/dL (31.0-37.0); MCV 90.1 fL (80.0-100.0); Mean Platelet Volume 7.1; Platelet Count 269 k/uL (150-450); RDW 16.6 % (11.5-15.5); WBC 12.9 k/uL (3.8-10.6)
[2020-09-09 07:00] LABS: Glucose,Whole Blood 225 mg/dL (75-99)
[2020-09-09 07:34] VITALS: RESP 18
[2020-09-09] MEDS: HEPARIN SODIUM,PORCINE 5,000 UNIT/ML 1 ML VIAL SQ SCH (07:38)
[2020-09-09] MEDS: PANTOPRAZOLE 40 MG TABLET PO SCH (07:39)
[2020-09-09] MEDS: metFORMIN 500 MG TAB PO SCH ×2 (07:39→17:29)
[2020-09-09] MEDS: FLUCONAZOLE 100 MG TAB PO SCH (07:39)
[2020-09-09] MEDS: glipiZIDE 10 MG TAB PO SCH ×2 (07:39→17:29)
[2020-09-09] MEDS: lisinopriL 10 MG TAB PO SCH (07:39)
[2020-09-09] MEDS: INSULIN ASPART (NovoLOG) 100 UNIT/ML VIAL SQ SCH ×3 (07:39→17:30)
[2020-09-09] MEDS: methylPREDNISolone SOD SUCCI 40 MG/ML 1 ML VIAL IV SCH (07:39)
[2020-09-09] MEDS: CLOPIDOGREL 75 MG TAB PO SCH (07:39)
[2020-09-09] MEDS: FINASTERIDE 5 MG TAB PO SCH (07:39)
[2020-09-09] MEDS: ASPIRIN 325 MG TAB PO SCH (07:39)
[2020-09-09] MEDS: HYDROPHILIC CREAM 180 GM TUBE TOPICAL SCH (07:40)
[2020-09-09] MEDS: CHOLESTYRAMINE (WITH SUGAR) 4 GM PACKET PO SCH ×2 (07:40→16:24)
[2020-09-09] MEDS: NYSTATIN 100,000 UNIT/GM POWD 15 GM TOPICAL SCH (07:40)
[2020-09-09 09:52] LABS: African American GFR (CKD) 107.1 (60.0-200.0); Anion Gap 8.1 mmol/L (4.00-12.00); BUN/Creat Ratio 33.75 Ratio (12.00-20.00); Calcium 8.3 mg/dL (8.7-10.3); Carbon Dioxide 26.9 mmol/L (21.6-31.8); Non-African American GFR(CKD) 92.4 (60.0-200.0); Potassium 4.4 mmol/L (3.5-5.5)
[2020-09-09 11:12] LABS: Glucose,Whole Blood 192 mg/dL (75-99)
[2020-09-09 14:21] VITALS: BP 152/87; PULSE 79; TEMP 98
[2020-09-09 16:11] LABS: Glucose,Whole Blood 265 mg/dL (75-99)
--- NOTE | 2020-09-09 16:13 | PN ---
PROGRESS NOTE DATE OF SERVICE: 09/09/2020 REASON FOR FOLLOWUP: 1. Bilateral groin cutaneous candidiasis. 2. Back cellulitis. INTERVAL HISTORY: The patient is currently afebrile, has been feeling better, breathing comfortably. Overall pain and discomfort to the back is improved. Denies having any chest pain. No shortness of breath, no cough. No abdominal pain or diarrhea. PHYSICAL EXAMINATION: Blood pressure 152/87, pulse of 69, temperature 98, he is 93% on room air. General description is an elderly male lying in bed in no distress. RESPIRATORY SYSTEM: Unlabored breathing, clear to auscultation anteriorly. HEART: S1, S2. Regular rate and rhythm. ABDOMEN: Soft, nontender. Examination of the back, overall redness has much improved. LABS: Creatinine 0.8. DIAGNOSTIC IMPRESSION AND PLAN: Patient with mild chronic cutaneous candidiasis and back cellulitis. Overall improvement on cefazolin, Diflucan and . Finish therapy with oral Keflex, and close outpatient followup. MMODL / IJN: [id number] /
--- NOTE | 2020-09-12 20:31 | CDI ---
Documentation Clarification Form Date: 09/13/2020 From: Polo Matthews Phone: If you have a question about this query, please contact Loly Shin Maintenance Manager at [phone] between 8am and 5pm. Admit Date: 09/02/2020 05:02:00 PM Patient Name: Newton Betancourt Visit Number: [id number] Discharge Date: 09/09/2020 06:25:00 PM ATTENTION: The Clinical Documentation Specialists (CDI) and [facility] Coding Staff appreciate your assistance in clarifying documentation. Please respond to the clarification below the line at the bottom and electronically sign. The CDI & [facility] Coding staff will review the response and follow-up if needed. Please note: Queries are made part of the Legal Health Record. If you have any questions, please contact the author of this message via ITS. Dr. Xavier Stern MD., The patient has diabetes, ED stated as Hyperosmolar hyperglycemic state (HHS), Cellulitis, Sepsis History/Risk Factors: DM type 2, cellulitis, hyperlipidemia, HTN Clinical Indicators: Cellulitis of the back.Could be bacterial or fungal infection of both Treatment: Insulin drip, Continue with the glipizide and metformin and insulin sliding scale and monitor sugar.Gentle hydration ED stated as "Lab investigations display leukocytosis of 24.Pseudo-natremia, glucose 713, started Insulin drip". ED impression stated as Hyperosmolar hyperglycemic state (HHS), Cellulitis, Sepsis" In order to capture the severity of Illness and necessary documentation specificity, please clarify DM type 2 as- Hyperglycemia Hyperosmolar hyperglycemic state (HHS) Other condition Hyperglycemia MTDD
== END 2020-09-09 18:25 | disposition home health service (06) | DRG 872 ==
LOC: EC 13:44 → 3SCARD 17:02 → 2SICU 19:03 → 3SCARD 19:49 → 4SSUR 09-03 21:34
PROVIDERS: ADMIT Internal Medicine; ATTEND Internal Medicine
DX: A41.9 Sepsis, unspecified organism (principal); L03.312 Cellulitis of back [any part except buttock and flank]; K50.90 Crohn's disease, unspecified, without complications; H91.90 Unspecified hearing loss, unspecified ear; E78.5 Hyperlipidemia, unspecified; E11.65 Type 2 diabetes mellitus with hyperglycemia; I10 Essential (primary) hypertension; J44.9 Chronic obstructive pulmonary disease, unspecified; N40.0 Benign prostatic hyperplasia without lower urinary tract symptoms; B37.2 Candidiasis of skin and nail; Z20.828 Contact with and (suspected) exposure to other viral communicable diseases; T38.0X5A Adverse effect of glucocorticoids and synthetic analogues, initial encounter; G89.29 Other chronic pain; Z79.02 Long term (current) use of antithrombotics/antiplatelets; Z79.51 Long term (current) use of inhaled steroids; I25.2 Old myocardial infarction; Z79.82 Long term (current) use of aspirin; Z79.84 Long term (current) use of oral hypoglycemic drugs; Z79.899 Other long term (current) drug therapy; Z82.49 Family history of ischemic heart disease and other diseases of the circulatory system; Z83.3 Family history of diabetes mellitus; Z86.73 Personal history of transient ischemic attack (TIA), and cerebral infarction without residual deficits; Z87.442 Personal history of urinary calculi; Z87.891 Personal history of nicotine dependence; Z90.89 Acquired absence of other organs; Z90.49 Acquired absence of other specified parts of digestive tract; Z98.890 Other specified postprocedural states; Z86.14 Personal history of Methicillin resistant Staphylococcus aureus infection
CPT/HCPCS: 36415; 72170; 80048; 80051; 80053; 81001; 82009; 82565; 82947; 83036; 83605; 84100; 84520; 85025; 85027; 85610; 85730; 87040; 87635; 93005; 94760; 96365; 96366; 96368; 96375; 99285

== ENCOUNTER 2021-03-26 | Inpatient (IN) | payer OTHER, MEDICARE | END 2021-03-30 13:23 | DRG 65 | PROVIDERS: ADMIT Hospitalist | CPT/HCPCS: 36415; 70450; 70496; 70498; 70551; 71046; 80048; 80053; 80061; 81003; 82009; 82803; 83036; 83605; 84443; 85025; 85027; 85610; 85613; 85652; 85730; 86038; 86147; 87040; 87635; 93005; 93306; 94640; 94760; 94762; 96361; 96374; 99285 ==

== ENCOUNTER 2021-03-31 13:56 | Inpatient (IN) | payer OTHER, MEDICARE ==
[2021-03-31] MEDS ORDERED: SODIUM CHLORIDE 0.9% 1,000 ML IV STA (14:05)
[2021-03-31 14:12] LABS: Glucose,Whole Blood 213 mg/dL (75-99)
[2021-03-31 14:21] LABS: Basophils # (A) 0.1 k/uL (0-0.2); Basophils % (A) 1 %; Eosinophils # (A) 0.1 k/uL (0-0.7); Eosinophils % (A) 1 %; HCT 47.9 % (39.0-53.0); Lymphocytes % (A) 7 %; MCH 28.7 pg (25.0-35.0); MCHC 33.4 g/dL (31.0-37.0); MCV 85.9 fL (80.0-100.0); Mean Platelet Volume 7.7; Monocytes # (A) 1.5 k/uL (0-1.0); Monocytes % (A) 10 %; Neutrophils % (A) 80 %; Platelet Count 219 k/uL (150-450); RBC 5.58 m/uL (4.30-5.90); RDW 15.2 % (11.5-15.5); WBC 14.9 k/uL (3.8-10.6)
[2021-03-31 14:32] LABS: Albumin 3.9 g/dL (3.5-5.0); Calcium 9.4 mg/dL (8.4-10.2); Potassium 4.5 mmol/L (3.5-5.1); Total Bilirubin 1.8 mg/dL (0.2-1.3); Total Protein 6.8 g/dL (6.3-8.2)
[2021-03-31 14:37] LABS: Partial Thromboplastin Time 22.2 sec (22.0-30.0); Prothrombin Time 10.5 sec (9.0-12.0)
--- NOTE | 2021-03-31 14:44 | CT ---
EXAMINATION TYPE: CT brain wo con DATE OF EXAM: 03/31/2021 COMPARISON: 03/24/2021 HISTORY: Neuro deficit. CT DLP: 1056.[address] of the brain was performed. Remote insults are noted of the bilateral occipital lobes as well as the posterior right parietal lob e and left cerebellum superiorly. There is new slightly decreased attenuation in the region of the le ft thalamus. Correlate clinically for acute vascular insult. The ventricles, basal cisterns and sulci overlying the cerebral convexities demonstrate mild enlargem ent. There is no evidence for intracranial hemorrhage or sulcal effacement. There is decreased attenuation about the periventricular white matter and deep white matter of both c erebral hemispheres, compatible with chronic small vessel ischemia. Differential diagnosis does inclu de demyelination. No mass effects are seen.No midline shift. Osseous calvarium is intact. If symptoms persist consider MRI. IMPRESSION: 1. There is new slightly decreased attenuation in the region of the left thalamus. Correlate clinical ly for acute vascular insult. 2. Areas of remote insult as discussed.
--- NOTE | 2021-03-31 15:01 | XR ---
EXAMINATION TYPE: XR chest 2V DATE OF EXAM: 03/31/2021 COMPARISON: 03/27/2021 HISTORY: Shortness of breath TECHNIQUE: Frontal and lateral views of the chest are obtained. FINDINGS: Scattered senescent parenchymal changes noted. Hyperinflation compatible with COPD. No evidence for infiltrate. No evidence for atelectasis. Heart size is stable. Mediastinal structures are stable and grossly unremarkable. No evidence for hilar prominence. Degenerative changes dorsal spine. IMPRESSION: 1. No evidence for acute pulmonary disease.
--- NOTE | 2021-03-31 15:46 | ED ---
Neuro HPI - General Chief Complaint: Neuro Symptoms/Deficit Stated Complaint: Stroke Time Seen by Provider: 03/31/21 14:00 Source: patient, EMS, RN notes reviewed, old records reviewed Mode of arrival: EMS Limitations: no limitations - History of Present Illness Is the patient presenting with stroke symptoms?: No Last Known Well Date: 03/31/21 Last Known Well Time: 12:00 Initial Comments: This is a 70-year-old male with a history of a CVATIA in the past was on anticoagulation therapy who was just discharged yesterday to a care home for rehab who is back today with sudden onset of right facial asymmetry. He denies any headache fevers chills nausea vomiting sweats he is awake and alert no new weakness to his arms or legs. He purely had no residual deficits from his prior episodes. He was brought in by EMS. No trauma no other complaints or modifying factors at this time - Related Data Home Medications: Home Medications Medication Instructions Recorded Confirmed Budesonide-Formot 160-4.5 Mcg 2 puff INHALATION RT-BID@08,159906/11/20 03/31/21 [Symbicort 160-4.5 Mcg Inhaler] Finasteride [Proscar] 5 mg PO DAILY@79906/11/20 03/31/21 Nitroglycerin Sl Tabs [Nitrostat] 0.4 mg SL Q5M PRN 07/24/20 03/31/21 Ammonium Lactate Cream [Lac-Hydrin 1 applic TOPICAL BID 03/24/21 03/31/21 12% Cream] Cetirizine HCl [Zyrtec] 10 mg PO DAILY@79903/24/21 03/31/21 Glucosamine/Chondr Barrios A Sod [Osteo 1 tab PO BID@0800,159903/24/21 03/31/21 Bi-Flex Caplet] Petrolatum, White [Aquaphor] 1 applic TOPICAL BID 03/24/21 03/31/21 Simvastatin [Zocor] 80 mg PO HS@199903/24/21 03/31/21 Apixaban [Eliquis] 5 mg PO BID@0800,1600 03/31/21 03/31/21 Aspirin 81 mg PO DAILY@79903/31/21 03/31/21 Fexofenadine HCl 60 mg PO DAILY@79903/31/21 03/31/21 Fluticasone/Vilanterol [Breo 1 puff INHALATION RT-DAILY 03/31/21 03/31/21 Ellipta 100-25 Mcg Inhaler] INSULIN ASPART (NovoLOG) [NovoLOG 3 unit SQ ACHS 03/31/21 03/31/21 (formulary)] Losartan [Cozaar] 25 mg PO DAILY@0800 03/31/21 03/31/21 Metoprolol Tartrate 25 mg PO BID@0800,1600 03/31/21 03/31/21 metFORMIN HCL [Glucophage] 1,000 mg PO BID@0630,1600 03/31/21 03/31/21 Previous Rx's Medication Instructions Recorded Acetaminophen Tab [Tylenol Tab] 500 mg PO Q6H PRN #30 tablet 03/30/21 Allergies/Adverse Reactions: Allergies Allergy/AdvReac Type Severity Reaction Status Date / Time No Known Allergies Allergy Verified 03/31/21 14:20 Review of Systems ROS Statement: Those systems with pertinent positive or pertinent negative responses have been documented in the HPI. ROS Other: All systems not noted in ROS Statement are negative. General Exam - General Exam Comments Initial Comments: This a well-developed well-nourished awake alert oriented 3 male Limitations: no limitations General appearance: alert, in no apparent distress Head exam: Present: other (Evidence of right facial asymmetry involving the forehead) Eye exam: Present: other (Right eyelid demonstrates palsy) ENT exam: Present: normal exam, mucous membranes moist Neck exam: Present: normal inspection, full ROM, other (No stridor JVD or bruits). Absent: tenderness, meningismus, lymphadenopathy Respiratory exam: Present: normal lung sounds bilaterally. Absent: respiratory distress, wheezes, rales, rhonchi, stridor Cardiovascular Exam: Present: normal rhythm, tachycardia, normal heart sounds. Absent: systolic murmur, diastolic murmur, rubs, gallop, clicks GI/Abdominal exam: Present: soft, normal bowel sounds. Absent: distended, tenderness, guarding, rebound, rigid Extremities exam: Present: normal inspection, normal capillary refill, other (Decreased range of motion of the right upper lower extremity he is unable to hold them up to is able move his feet and hands equal banana loader strength). Absent: full ROM, tenderness, pedal edema, joint swelling, calf tenderness Back exam: Present: normal inspection Neurological exam: Present: alert, oriented X3, other (Evidence of right facial asymmetry involving the forehead) Psychiatric exam: Present: normal affect, normal mood Skin exam: Present: warm, dry, intact, normal color. Absent: rash Stroke MDM - Lab Data Result diagrams: 03/31/21 14:09 03/31/21 14:09 Lab Results 03/31/21 03/31/21 03/31/21 Range/Units 14:00 14:09 14:09 WBC 14.9 H (3.8-10.6) k/uL RBC 5.58 (4.30-5.90) m/uL Hgb 16.0 (13.0-17.5) gm/dL Hct 47.9 (39.0-53.0) % MCV 85.9 (80.0-100.0) fL MCH 28.7 (25.0-35.0) pg MCHC 33.4 (31.0-37.0) g/dL RDW 15.2 (11.5-15.5) % Plt Count 219 (150-450) k/uL MPV 7.7 Neutrophils % 80 % Lymphocytes % 7 % Monocytes % 10 % Eosinophils % 1 % Basophils % 1 % Neutrophils # 12.0 H (1.3-7.7) k/uL Lymphocytes # 1.0 (1.0-4.8) k/uL Monocytes # 1.5 H (0-1.0) k/uL Eosinophils # 0.1 (0-0.7) k/uL Basophils # 0.1 (0-0.2) k/uL PT 10.5 (9.0-12.0) sec INR 1.0 (<1.2) APTT 22.2 (22.0-30.0) sec Sodium (137-145) mmol/L Potassium (3.5-5.1) mmol/L Chloride (98-107) mmol/L Carbon Dioxide (22-30) mmol/L Anion Gap mmol/L BUN (9-20) mg/dL Creatinine (0.66-1.25) mg/dL Est GFR (CKD-EPI)AfAm (>60 ml/min/1.73 sqM) Est GFR (CKD-EPI)NonAf (>60 ml/min/1.73 sqM) Glucose (74-99) mg/dL POC Glucose (mg/dL) 213 H (75-99) mg/dL POC Glu Splicing Machine Operator ID Adriana Torres Calcium (8.4-10.2) mg/dL Total Bilirubin (0.2-1.3) mg/dL AST (17-59) U/L ALT (4-49) U/L Alkaline Phosphatase (38-126) U/L Creatine Kinase (55-170) U/L Troponin I (0.000-0.034) ng/mL Total Protein (6.3-8.2) g/dL Albumin (3.5-5.0) g/dL 03/31/21 03/31/21 Range/Units 14:09 14:09 WBC (3.8-10.6) k/uL RBC (4.30-5.90) m/uL Hgb (13.0-17.5) gm/dL Hct (39.0-53.0) % MCV (80.0-100.0) fL MCH (25.0-35.0) pg MCHC (31.0-37.0) g/dL RDW (11.5-15.5) % Plt Count (150-450) k/uL MPV Neutrophils % % Lymphocytes % % Monocytes % % Eosinophils % % Basophils % % Neutrophils # (1.3-7.7) k/uL Lymphocytes # (1.0-4.8) k/uL Monocytes # (0-1.0) k/uL Eosinophils # (0-0.7) k/uL Basophils # (0-0.2) k/uL PT (9.0-12.0) sec INR (<1.2) APTT (22.0-30.0) sec Sodium 135 L (137-145) mmol/L Potassium 4.5 (3.5-5.1) mmol/L Chloride 102 (98-107) mmol/L Carbon Dioxide 21 L (22-30) mmol/L Anion Gap 12 mmol/L BUN 24 H (9-20) mg/dL Creatinine 1.08 (0.66-1.25) mg/dL Est GFR (CKD-EPI)AfAm 81 (>60 ml/min/1.73 sqM) Est GFR (CKD-EPI)NonAf 70 (>60 ml/min/1.73 sqM) Glucose 237 H (74-99) mg/dL POC Glucose (mg/dL) (75-99) mg/dL POC Glu Splicing Machine Operator ID Calcium 9.4 (8.4-10.2) mg/dL Total Bilirubin 1.8 H (0.2-1.3) mg/dL AST 50 (17-59) U/L ALT 32 (4-49) U/L Alkaline Phosphatase 129 H (38-126) U/L Creatine Kinase 41 L (55-170) U/L Troponin I 0.018 (0.000-0.034) ng/mL Total Protein 6.8 (6.3-8.2) g/dL Albumin 3.9 (3.5-5.0) g/dL - NIH Stroke Scale 1a. Level of Consciousness: (0) alert 1b. LOC Questions: (0) answers correctly 1c. LOC Commands: (0) performs tasks correctly 2. Best Gaze: (0) normal 3. Visual: (0) no visual loss 4. Facial Palsy: (3) complete paralysis 5a. Motor Arm Left: (0) no drift 5b. Motor Arm Right: (2) some gravity effort 6a. Motor Leg Left: (0) no drift 6b. Motor Leg Right: (2) some gravity effort 7. Limb Ataxia: (0) absent 8. Sensory: (0) normal 9. Best Language: (0) no aphasia 10. Dysarthria: (1) mild/moderate dysarthria 11. Extinction/Inattention: (0) no abnormality - Medical Decision Making Patient will be admitted discussed with Dr. Vigil. Patient is currently a candidate for intervention. Patient be admitted neurological consultation. 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, back pain, chronic diarrhea, BPH, ARTHRITIS R ankle, DJD, kidney stones, asbestos exposure in the [place], UTI, Crohn's disease, Mead Parkinson White syndrome., History of Any Multi-Drug Resistant Organisms: MRSA Date of last positivie culture/infection: January 2015 (At [facility] per patient) MDRO Source:: Right Ankle and Back (per patient) Past Surgical History: Adenoidectomy, Bowel Resection, Orthopedic Surgery, Tonsillectomy Additional Past Surgical History / Comment(s): 01/2015 Laminectomy, discectomy with decompression L5-S1, I&D epidural abscess L5-S1 (STATED HAD MULTIPLE BX- BENIGN)and aspiration R ankle, [place] [facility] [place] . left wrist surgically repaired after fx-PLATE/SCREW. RT HIP TEVIN/SCREWS. ileostomy end of May Past Anesthesia/Blood Transfusion Reactions: No Reported Reaction Additional Past Anesthesia/Blood Transfusion Reaction / Comment(s): Pt states he recieved blood 02/2015 at [facility] without reaction. Past Psychological History: No Psychological Hx Reported Smoking Status: Former smoker Past Alcohol Use History: None Reported Past Drug Use History: None Reported - Past Family History Father Family Medical History: Myocardial Infarction ([place]) Additional Family Medical History / Comment(s): Father of massive [place]. Mother Family Medical History: Diabetes Mellitus Course Vital Signs 03/31/21 03/31/21 03/31/21 14:02 14:24 14:30 Temperature 99.2 F Pulse Rate 114 H 112 H Respiratory 18 24 Rate Blood Pressure 107/78 99/71 99/71 O2 Sat by Pulse 98 Oximetry 03/31/21 03/31/21 03/31/21 14:45 15:00 15:15 Temperature Pulse Rate 102 H 109 H Respiratory 18 16 Rate Blood Pressure 91/67 86/64 86/64 O2 Sat by Pulse 92 L 93 L 93 L Oximetry 03/31/21 03/31/21 15:30 15:45 Temperature Pulse Rate 109 H 107 H Respiratory 18 18 Rate Blood Pressure 78/63 91/62 O2 Sat by Pulse 94 L Oximetry - Reevaluation(s) Reevaluation #1: 03/31/21 16:12 Evaluations the patient he is resting comfortably no distress he still has right-sided facial asymmetry is described earlier. He does seem to be able to move his extremities however. Disposition Clinical Impression: Cerebrovascular accident (CVA), Rowan's palsy, Chronic atrial fibrillation Disposition: ADMITTED IP TO THIS HOSP Condition: Fair Referrals: Keith Gutiérrez DO [Primary Care Provider] - 1-2 days
[2021-03-31] MEDS ORDERED: NITROGLYCERIN SL TABS 0.4 MG TAB SUBLINGUAL PRN (16:33)
[2021-03-31] MEDS ORDERED: ACETAMINOPHEN TAB 500 MG TAB PO PRN (16:33)
[2021-03-31] MEDS: INSULIN ASPART (NovoLOG) 100 UNIT/ML VIAL SQ SCH ×2 (18:52→20:54)
[2021-03-31 20:39] LABS: Glucose,Whole Blood 171 mg/dL (75-99)
[2021-03-31 20:51] LABS: Glucose,Whole Blood 196 mg/dL (75-99)
[2021-03-31] MEDS: ATORVASTATIN 40 MG TAB PO SCH (20:53)
[2021-03-31] MEDS: AMMONIUM LACTATE 12% CREAM 140 GM TUBE TOPICAL SCH (22:38)
[2021-03-31] MEDS: PETROLATUM, WHITE OINT 50 GM TUBE TOPICAL SCH (22:38)
--- NOTE | 2021-03-31 23:01 | P.HPIM ---
History of Present Illness H&P Date: 03/31/21 Chief Complaint: Facial assymetry and speech abnormality Mr. Betancourt is a 70-year-old male with a past medical history of asthma, stroke/TIA, diabetes mellitus, hard of hearing, hypertension, hyperlipidemia, stroke with residual loss of peripheral vision, chronic low back pain, chronic diarrhea, multiple joint osteoarthritis, Crohn's disease, Ovefy-Kktggbcuo-Aqkzz syndrome sent in from [facility] for right facial asymmetry. Patient was discharged from the hospital yesterday after being admitted and treated for acute ischemic stroke involving the left occipital lobe. Patient was noncompliant with aspirin and Plavix. Patient had work-up for stroke including MRI of the brain, EP studies, CT angio, echocardiogram, brain CT. As per discussion with the patient he states that he had difficulty in speech which is new for him and so he was sent in for further evaluation. Patient denies having any active complaints. At the time of admission the patient's vital signs were temperature 99.2, heart rate, respiratory 18, blood pressure 107/78, saturating at 98% on room air. He had blood work done showing white count of 14.9, hemoglobin 16, platelets 219. Sodium 135, potassium 4.3, chloride 102, bicarb 29, BUN 24, creatinine 1.08. Albumin of 3.9. Patient had a CT of the showing new slightly decreased attenuation in the right in the region of the left thalamus, clinically correlate for acute vascular insult. So the patient being admitted for acute stroke. Review of Systems REVIEW OF SYSTEMS: CONSTITUTIONAL: No fever, no malaise, no fatigue. HEENT: No headache, no neck stiffness, Visual deficit due to recent stroke CARDIOVASCULAR: no chest pain or palpitations PULMONARY: No cough or difficulty in breathing GASTROINTESTINAL: No Abdominal pain nausea vomiting or diarrhea NEUROLOGICAL: As per HPI HEMATOLOGICAL: Denies any bleeding or petechiae. GENITOURINARY: Denies any burning micturition, frequency, or urgency. MUSCULOSKELETAL/RHEUMATOLOGICAL: bed bound ENDOCRINE: Denies polyuria polydipsia or heat or cold intolerance The rest of the 14-point review of systems is negative. Past Medical History Past Medical History: Asthma, CVA/TIA, Diabetes Mellitus, Hearing Disorder / Deafness, Hyperlipidemia, Hypertension, Prostate Disorder, Renal Disease Additional Past Medical History / Comment(s): STROKE -RESIDUAL HAS LOSS OF PERIPHERAL VISION, back pain, chronic diarrhea, BPH, ARTHRITIS R ankle, DJD, kidney stones, asbestos exposure in the [place], UTI, Crohn's disease, Mead Parkinson White syndrome., History of Any Multi-Drug Resistant Organisms: MRSA Date of last positivie culture/infection: January 2015 (At [facility] per patient) MDRO Source:: Right Ankle and Back (per patient) Past Surgical History: Adenoidectomy, Bowel Resection, Orthopedic Surgery, Tonsillectomy Additional Past Surgical History / Comment(s): 01/2015 Laminectomy, discectomy with decompression L5-S1, I&D epidural abscess L5-S1 (STATED HAD MULTIPLE BX- BENIGN)and aspiration R ankle, 02/2015 I&D L5-S1 [place] [facility] [place], Yearly colonoscopy . left wrist surgically repaired after fx-PLATE/SCREW. RT HIP TEVIN/SCREWS. ileostomy end of May Past Anesthesia/Blood Transfusion Reactions: No Reported Reaction Additional Past Anesthesia/Blood Transfusion Reaction / Comment(s): Pt states he recieved blood 02/2015 at [facility] without reaction. Past Psychological History: No Psychological Hx Reported Smoking Status: Former smoker Past Alcohol Use History: None Reported Past Drug Use History: None Reported - Past Family History Father Family Medical History: Myocardial Infarction ([place]) Additional Family Medical History / Comment(s): Father of massive [place]. Mother Family Medical History: Diabetes Mellitus Medications and Allergies Home Medications Medication Instructions Recorded Confirmed Type Budesonide-Formot 160-4.5 Mcg 2 puff INHALATION RT-BID@0800,1600 06/11/20 03/31/21 History [Symbicort 160-4.5 Mcg Inhaler] Finasteride [Proscar] 5 mg PO DAILY@0800 06/11/20 03/31/21 History Nitroglycerin Sl Tabs [Nitrostat] 0.4 mg SL Q5M PRN 07/24/20 03/31/21 History Ammonium Lactate Cream [Lac-Hydrin 1 applic TOPICAL BID 03/24/21 03/31/21 History 12% Cream] Cetirizine HCl [Zyrtec] 10 mg PO DAILY@0800 03/24/21 03/31/21 History Glucosamine/Chondr Barrios A Sod [Osteo 1 tab PO BID@0800,1600 03/24/21 03/31/21 History Bi-Flex Caplet] Petrolatum, White [Aquaphor] 1 applic TOPICAL BID 03/24/21 03/31/21 History Simvastatin [Zocor] 80 mg PO HS@199903/24/21 03/31/21 History Acetaminophen Tab [Tylenol Tab] 500 mg PO Q6H PRN #30 tablet 03/30/21 03/31/21 R x Apixaban [Eliquis] 5 mg PO BID@0800,1600 03/31/21 03/31/21 History Aspirin 81 mg PO DAILY@0800 03/31/21 03/31/21 History Fexofenadine HCl 60 mg PO DAILY@0800 03/31/21 03/31/21 History Fluticasone/Vilanterol [Breo 1 puff INHALATION RT-DAILY 03/31/21 03/31/21 History Ellipta 100-25 Mcg Inhaler] INSULIN ASPART (NovoLOG) [NovoLOG 3 unit SQ ACHS 03/31/21 03/31/21 History (formulary)] Losartan [Cozaar] 25 mg PO DAILY@0800 03/31/21 03/31/21 History Metoprolol Tartrate 25 mg PO BID@0800,1600 03/31/21 03/31/21 History metFORMIN HCL [Glucophage] 1,000 mg PO BID@0630,1600 03/31/21 03/31/21 History Allergies Allergy/AdvReac Type Severity Reaction Status Date / Time No Known Allergies Allergy Verified 03/31/21 14:20 Physical Exam Vitals: Vital Signs Temp Pulse Resp BP Pulse Ox 03/31/21 17:18 98.4 F 107 H 18 92/61 95 03/31/21 17:00 109 H 18 87/62 95 03/31/21 16:45 105 H 20 92/71 95 03/31/21 16:30 108 H 18 96/67 94 L 03/31/21 16:15 114 H 19 88/65 95 03/31/21 16:00 109 H 18 82/62 94 L 03/31/21 15:45 107 H 18 91/62 94 L 03/31/21 15:30 109 H 18 78/63 03/31/21 15:15 109 H 16 86/64 93 L 03/31/21 15:00 102 H 18 86/64 93 L 03/31/21 14:45 91/67 92 L 03/31/21 14:30 99/71 03/31/21 14:24 112 H 24 99/71 03/31/21 14:02 99.2 F 114 H 18 107/78 98 Intake and Output 03/31/21 03/31/21 03/31/21 06:59 14:59 22:59 Other: Weight 79.379 kg PHYSICAL EXAMINATION: GENERAL: no acute distress. poorly kempt HEENT: Pupils are round and equally reacting to light. EOMI. No scleral icterus. No conjunctival pallor. CARDIOVASCULAR: S1 and S2 present. Tachycardia PULMONARY: Bilateral breath sounds positive. No wheeze or crackles.. ABDOMEN: Soft,non -tender, normal bowel sounds. No guarding or rigidity. MUSCULOSKELETAL: No joint swelling or deformity. EXTREMITIES: No edema NEUROLOGICAL: Alert awake oriented 2-3 .Speech is muffled, Right facial droop Strenght - 3/5 in the right upper and lower extremity and 4/5 on the left side Results CBC & Chem 7: 03/31/21 14:09 03/31/21 14:09 Labs: Abnormal Lab Results - Last 24 Hours (Table) 03/31/21 03/31/21 03/31/21 Range/Units 14:00 14:09 14:09 WBC 14.9 H (3.8-10.6) k/uL Neutrophils # 12.0 H (1.3-7.7) k/uL Monocytes # 1.5 H (0-1.0) k/uL Sodium 135 L (137-145) mmol/L Carbon Dioxide 21 L (22-30) mmol/L BUN 24 H (9-20) mg/dL Glucose 237 H (74-99) mg/dL POC Glucose (mg/dL) 213 H (75-99) mg/dL Total Bilirubin 1.8 H (0.2-1.3) mg/dL Alkaline Phosphatase 129 H (38-126) U/L Creatine Kinase 41 L (55-170) U/L Assessment and Plan Assessment: ASSESSMENT Left facial droop/dysarthria- Acute CVA Recent history of ischemic left occipital lobe stroke History of multiple embolic strokes Noncompliance with aspirin and Plavix Hypertension Poorly controlled diabetes mellitus Hyperlipidemia Fhlzq-Zgeflkslg-Wxmsu syndrome History of Crohn's disease History of exposure to asbestos in [place] History of nephrolithiasis Chronic diarrhea BPH Multiple joint osteoarthritis History of laminectomy and discectomy History of epidural abscess Former smoker PLAN: Patient has history of multiple strokes, which appeared embolic in nature, patient recently had complete stroke work-up including electrophysiological studies done by cardiology Every 4 hrs neurochecks Continue with telemetry monitoring Will consult neurology Patient has been restarted on his home medications Further recommendations to follow depending on the progress of the patient Overall prognosis is highly guarded.
[2021-04-01 01:53] LABS: Glucose,Whole Blood 194 mg/dL (75-99)
[2021-04-01 06:10] LABS: Glucose,Whole Blood 192 mg/dL (75-99)
[2021-04-01] MEDS: SODIUM CHLORIDE 0.9% 1,000 ML IV SCH ×2 (06:47→20:20)
[2021-04-01] MEDS ORDERED: NON FORMULARY DRUG (Fluticasone/Vilanterol [Breo Ellipta 100-25 Mcg Inhaler] 1 EACH Blst.W INHALATION SCH (08:00)
[2021-04-01] MEDS ORDERED: ASPIRIN 81 MG PO SCH (08:00)
[2021-04-01] MEDS ORDERED: NON FORMULARY DRUG (Cetirizine Hcl [Zyrtec] 10 MG Tablet) PO SCH (08:00)
[2021-04-01] MEDS ORDERED: NON FORMULARY DRUG (Glucosamine/Chondr Su A Sod [Osteo Bi-Flex Caplet] 1 EACH Tablet) PO SCH (08:00)
[2021-04-01] MEDS ORDERED: predniSONE 10 MG TAB PO SCH (09:00)
[2021-04-01] MEDS: SYMBICORT 160-4.5 MCG INHALER INHALATION SCH ×2 (09:22→19:17)
--- NOTE | 2021-04-01 10:10 | P.CNNES ---
History of Present Illness Consult date: 04/01/21 Requesting physician: Kassandra Brunson Reason for Consult: stroke/tia History of Present Illness: This is a 70-year-old gentleman with multiple strokes who had an acute ischemic stroke involving the left occipital on recent admission of 03/26/2021 in our facility, acute hearing loss over the right side, poorly controlled diabetes, hypertension, hyperlipidemia, medication noncompliance who [facility] the [facility] new onset right facial asymmetry. He stated that around 4:00 PM yesterday all of a sudden he started having right facial weakness and slurring the speech. He's been having coughing episode as well. He denies of any fever or any new weakness or numbness any new visual disturbance. He denies of any new hearing loss since the his recent the last admission. The patient the was seen by our neurology team and was discharged on 03/30/2021 and the patient had acute left occipital stroke that was seen on MRI. On on his just prior admission was found that he has proximal atrial fibrillation and the patient was started on Apixaban and it was felt that the his strokes were embolic in nature. Patient is on aspirin and the Eliquis. He is also on Lipitor 40 mg daily. Please refer to the neurology notes for this past hospital admission for further details. Some of the workup in the hospital consisted of: Vital signs: Blood pressure of 107/78, heart rate 114, respiratory of 18, temperature of 99.2 Fahrenheit and pulse ox of 98% room air. Initial white blood cells 14.9, neutrophils is 12.0. Chemistry panel is a sodium is 135 which is slightly low. Otherwise her creatinine, calcium, AST and ALT are within normal limits. The initial POC glucose 213 which is elevated and the patient had is known to have poorly controlled diabetes. CT of the head is reported as there is new slightly decreased attenuation in the region of the left thalamus. Correlate clinically for acute vascular insult. Areas of remote insult discussed. In the body it is mentioned that the patient has remote insult as noted in the bilateral occipital as well as poor posture right parietal lobe in the left cerebellum superior area and there is new decreased attenuation in the region of the left thalamus. I personally reviewed the CT of the head and it was a little bit off to appreciate an new acute ischemic stroke over the left thalamus. I personally reviewed the MRI of the brain again on 03/26/2021 and the patient has an old left thalamus the lacunar stroke. Review of Systems Review of system: The 12 point system was reviewed and apparent positive and negative per HPI. Past Medical History Past Medical History: Asthma, CVA/TIA, Diabetes Mellitus, Hearing Disorder / Deafness, Hyperlipidemia, Hypertension, Prostate Disorder, Renal Disease Additional Past Medical History / Comment(s): STROKE -RESIDUAL HAS LOSS OF PERIPHERAL VISION, back pain, chronic diarrhea, BPH, ARTHRITIS R ankle, DJD, kidney stones, asbestos exposure in the [place], UTI, Crohn's disease, Mead Parkinson White syndrome., History of Any Multi-Drug Resistant Organisms: MRSA Date of last positivie culture/infection: January 2015 (At [facility] per patient) MDRO Source:: Right Ankle and Back (per patient) Past Surgical History: Adenoidectomy, Bowel Resection, Orthopedic Surgery, Tonsillectomy Additional Past Surgical History / Comment(s): 01/2015 Laminectomy, discectomy with decompression L5-S1, I&D epidural abscess L5-S1 (STATED HAD MULTIPLE BX-SANAM IGN)and aspiration R ankle, 02/2015 I&D L5-S1 at [facility] [place], Yearly colonoscopy . left wrist surgically repaired after fx-PLATE/SCREW. RT HIP TEVIN/SCREWS. ileostomy end of May Past Anesthesia/Blood Transfusion Reactions: No Reported Reaction Additional Past Anesthesia/Blood Transfusion Reaction / Comment(s): Pt states he recieved blood 02/2015 at [facility] without reaction. Past Psychological History: No Psychological Hx Reported Smoking Status: Former smoker Past Alcohol Use History: None Reported Past Drug Use History: None Reported - Past Family History Father Family Medical History: Myocardial Infarction (GA) Additional Family Medical History / Comment(s): Father of massive [place]. Mother Family Medical History: Diabetes Mellitus Medications and Allergies Home Medications Medication Instructions Recorded Confirmed Type Budesonide-Formot 160-4.5 Mcg 2 puff INHALATION RT-BID@0800,1600 06/11/20 03/31/21 History [Symbicort 160-4.5 Mcg Inhaler] Finasteride [Proscar] 5 mg PO DAILY@0800 06/11/20 03/31/21 History Nitroglycerin Sl Tabs [Nitrostat] 0.4 mg SL Q5M PRN 07/24/20 03/31/21 History Ammonium Lactate Cream [Lac-Hydrin 1 applic TOPICAL BID 03/24/21 03/31/21 History 12% Cream] Cetirizine HCl [Zyrtec] 10 mg PO DAILY@0800 03/24/21 03/31/21 History Glucosamine/Chondr Barrios A Sod [Osteo 1 tab PO BID@0800,1600 03/24/21 03/31/21 History Bi-Flex Caplet] Petrolatum, White [Aquaphor] 1 applic TOPICAL BID 03/24/21 03/31/21 History Simvastatin [Zocor] 80 mg PO HS@199903/24/21 03/31/21 History Acetaminophen Tab [Tylenol Tab] 500 mg PO Q6H PRN #30 tablet 03/30/21 03/31/21 Rx Apixaban [Eliquis] 5 mg PO BID@0800,1600 03/31/21 03/31/21 History Aspirin 81 mg PO DAILY@0800 03/31/21 03/31/21 History Fexofenadine HCl 60 mg PO DAILY@0800 03/31/21 03/31/21 History Fluticasone/Vilanterol [Breo 1 puff INHALATION RT-DAILY 03/31/21 03/31/21 His tory Ellipta 100-25 Mcg Inhaler] INSULIN ASPART (NovoLOG) [NovoLOG 3 unit SQ ACHS 03/31/21 03/31/21 History (formulary)] Losartan [Cozaar] 25 mg PO DAILY@0800 03/31/21 03/31/21 History Metoprolol Tartrate 25 mg PO BID@0800,1600 03/31/21 03/31/21 History metFORMIN HCL [Glucophage] 1,000 mg PO BID@0630,1600 03/31/21 03/31/21 History Allergies Allergy/AdvReac Type Severity Reaction Status Date / Time No Known Allergies Allergy Verified 03/31/21 14:20 Physical Examination - Vital Signs Vital Signs: Vital Signs Temp Pulse Pulse Resp BP BP Pulse Ox 04/01/21 05:00 98.4 F 108 H 18 122/76 94 L 04/01/21 02:00 16 04/01/21 00:00 98.5 F 114 H 16 106/79 94 L 03/31/21 20:38 98.0 F 110 H 16 87/59 93 L 03/31/21 18:49 97.8 F 105 H 18 94/63 95 03/31/21 17:18 98.4 F 107 H 18 92/61 95 03/31/21 17:00 109 H 18 87/62 95 03/31/21 16:45 105 H 20 92/71 95 03/31/21 16:30 108 H 18 96/67 94 L 03/31/21 16:15 114 H 19 88/65 95 03/31/21 16:00 109 H 18 82/62 94 L 03/31/21 15:45 107 H 18 91/62 94 L 03/31/21 15:30 109 H 18 78/63 03/31/21 15:15 109 H 16 86/64 93 L 03/31/21 15:00 102 H 18 86/64 93 L 03/31/21 14:45 91/67 92 L 03/31/21 14:30 99/71 03/31/21 14:24 112 H 24 99/71 03/31/21 14:02 99.2 F 114 H 18 107/78 98 Intake and Output 03/31/21 04/01/21 04/01/21 22:59 06:59 14:59 Output Total 450 Balance -450 Output: Gastric Drainage 150 Urine 300 Other: Voiding Method Urinal Urinal Weight 79.379 kg 90.5 kg GENERAL: The patient is lying in bed and is not in acute distress. CHEST: The heart rate is regular rate rhythm. No murmurs to auscultation. No carotid bruit bilaterally. LUNG: Clear to auscultation bilaterally no wheezing noted throughout. She seems short of breath and coughing. ABDOMEN/GI: Bowel sounds present in all 4 quadrants. No tenderness to palpation throughout. NEUROLOGICAL: Higher mental function: The patient is awake, alert, oriented to self, place and time. Patient is following commands. No aphasia and no neglect. Cranial nerves: The pupils are round, equal and reactive to light. Visual dhillon are hard to assess but after multiple tests on the right eye he had field defect over the right lower temporal and left upper nasal and on left he has left upper temporal and questionable right lower nasal. Extraocular movement is intact no nystagmus is noted. He has ptosis of the left eye. Facial sensation is decreased to touch over the right V1 otherwise normal throu ghout. The facial strength is weakness over entire side (upper and lower). Hearing is decreased to absent over the right while normal to hand rub over the left. to hand rub. Tongue is midline and moved [id number] without any difficulty. Moderate dysarthria is noted. Shoulder shrug is normal bilaterally. Motor: Gait is deferred. The strength is Right hand timber selector is 4 while left is 4+. Otherwise 5 over 5 throughout. Normal tone and bulk. Cerebellum: Normal finger to nose bilaterally. Sensation: Sensation is normal to touch throughout. Reflexes (right/left): 2+ at bilateral triceps. Otherwise 1+ throughout. Plantars are mute bilaterally. Results - Laboratory Findings CBC and BMP: 03/31/21 14:09 03/31/21 14:09 Abnormal Lab Findings: Abnormal Labs 03/31/21 03/31/21 03/31/21 14:00 14:09 14:09 WBC 14.9 H Neutrophils # 12.0 H Monocytes # 1.5 H Sodium 135 L Carbon Dioxide 21 L BUN 24 H Glucose 237 H POC Glucose (mg/dL) 213 H Total Bilirubin 1.8 H Alkaline Phosphatase 129 H Creatine Kinase 41 L 03/31/21 03/31/21 04/01/21 20:38 20:50 01:52 WBC Neutrophils # Monocytes # Sodium Carbon Dioxide BUN Glucose POC Glucose (mg/dL) 171 H 196 H 194 H Total Bilirubin Alkaline Phosphatase Creatine Kinase 04/01/21 06:08 WBC Neutrophils # Monocytes # Sodium Carbon Dioxide BUN Glucose POC Glucose (mg/dL) 192 H Total Bilirubin Alkaline Phosphatase Creatine Kinase Assessment and Plan Assessment: * Acute entire facial weakness due to acute cerebral ischemic stroke. Etiology is embolic. * Dysphagia due to above * On CT of the head it is reported "new slightly decreased attenuation in the region of the left thalamus. Correlate clinically for acute vascular insult". Upon reviewing MRI of the brain on 03/26/2021 I felt he has an old left thalamus the lacunar stroke. * Multiple ischemic stroke due to embolic * Paroxymal Atrial fibrillation on Eliquis * Acute hearing loss over the right side of unclear etiology * Poorly controlled diabetes * Hypertension * Hyperlipidemia * Medication noncompliance Plan: I ordered MRI of the brain w/ and w/o to rule out any acute ischemic stroke. I started the patient on Valcylovir 1gm 1 tab tid and Prednisone 50mg 1 tab daily for 5 days then after that tapering 10mg less for 5 days for thought proc ess of Hiko Palsy if negative for stroke and possibly viral. Patient was restarted Eliquis 5 mg 1 tablet twice a day and aspirin 81 mg a daily patient is a having the dysphagia because of his acute symptoms therefore I recommend aspirin 300mg rectally and the hold off on anticoagulation until the MRI the brain and if negative for stroke then we can do heparin drip and no boluses and to keep it PTT between 45-60. Patient was also started on Lipitor 40 mg daily at bedtime for secondary stroke prophylaxis. Lipid panel is ordered by the ED team is pending PT, OT and AUTOMOTIVE DRIVABILITY TECHNICIAN are consulted. On cardiac monitoring and every 4 hours neuro checks Regarding his sugar control will defer to the primary team and will defer GI prophylaxis primary team. Will defer the rest of medical management to the primary team. Thank you for the consultation. UPDATE: MR the brain is reported as interval infarct as described involving the lateral brain stem, right middle cerebral peduncle. Consistent embolic disease. Mastoid signal abnormalities are again noted that. In the body the report is mentioned that the patient has diffusion weighted images demonstrated an interval restricted diffusion involving the lateral aspect of the lingual lobe, taty, anterior aspect of the middle cerebellar peduncle with corresponding hyperintensity present on inversion recovery to T2 weighted sequence. I stopped the acyclovir and prednisone. Patient was notified of his acute stroke We'll hold off on anticoagulation because of acute ischemic stroke and to prevent hemorrhagic conversion (will hold off for 2-3 days). Patient was notified that holding off the anticoagulation increases risk of further strokes but also at the same time there is a risk of bleeding and he understands and he is willing to hold off anticoagulation. Patient's condition is very guarded. The plan is discussed with the patient's nurse and his primary team. Hiram Pringle MD Neuro-Hospitalist Time with Patient: Greater than 30
[2021-04-01 12:01] LABS: Glucose,Whole Blood 208 mg/dL (75-99)
[2021-04-01] MEDS: metFORMIN 500 MG TAB PO SCH ×2 (12:30→17:37)
[2021-04-01] MEDS: FINASTERIDE 5 MG TAB PO SCH (12:30)
[2021-04-01] MEDS: APIXABAN 5 MG TAB PO SCH ×2 (12:30→17:37)
[2021-04-01] MEDS: INSULIN ASPART (NovoLOG) 100 UNIT/ML VIAL SQ SCH ×3 (12:30→20:20)
[2021-04-01] MEDS: LOSARTAN 25 MG TAB PO SCH (12:31)
[2021-04-01] MEDS: METOPROLOL TARTRATE 25 MG TAB PO SCH ×2 (12:31→17:37)
[2021-04-01] MEDS: PETROLATUM, WHITE OINT 50 GM TUBE TOPICAL SCH ×2 (12:31→20:20)
[2021-04-01] MEDS: AMMONIUM LACTATE 12% CREAM 140 GM TUBE TOPICAL SCH ×2 (12:31→20:20)
[2021-04-01] MEDS: LORATADINE 10 MG TAB PO SCH (12:31)
[2021-04-01] MEDS: valACYclovir 500 MG TAB PO SCH ×2 (12:31→19:02)
[2021-04-01] MEDS: PANTOPRAZOLE 40 MG TABLET PO SCH (12:32)
[2021-04-01 14:00] LABS: Chol/HDL Ratio 3.02; LDL Cholesterol,Calculated 70.8 mg/dL (0.0-131.0); VLDL Calculation 22.2 mg/dL (5.00-40.00)
--- NOTE | 2021-04-01 15:47 | MR ---
EXAMINATION TYPE: MR brain wo/w con DATE OF EXAM: 04/01/2021 COMPARISON: MR brain 03/25/2021, CT brain 03/31/2021 HISTORY: Facial weakness, recent infarct. TECHNIQUE: Multiplanar, multisequence images of the brain and brainstem is performed without and with IV contras t, utilizing 9 mL intravenous Gadavist . FINDINGS: Diffusion weighted images demonstrate an interval restricted diffusion involving the latera l aspect of the lingula, taty, anterior aspect of the middle cerebellar peduncle with corresponding h yperintensity present on inversion recovery T2-weighted sequences. Multiple areas of encephalomalacia , previous infarcts are noted bilaterally as on prior exam. Corpus callosum, pituitary, cervical medu llary junction, cerebellopontine angles are stable. There is no extra-axial fluid collection or other significant change in white matter signal abnormality compared to prior exam. The ventricular syste m and cisternal spaces are normal in size and appearance. Again noted are abnormal signal within the mastoid air cells, similar to prior exam The brain volume is age appropriate. Midline structures demonstrate normal morphology. The craniocervical junction appears within normal limits. Post contrast images demonstrate no abnormal enhancement. The dural venous sinuses appear pa tent. The visualized sinuses are clear and the globes are intact. IMPRESSION: Interval infarct as described involving the lateral brainstem, right middle cerebellar pe duncle. Consider embolic disease. Mastoid signal abnormalities are again noted.
[2021-04-01 16:39] LABS: Glucose,Whole Blood 215 mg/dL (75-99)
[2021-04-01] MEDS: ASPIRIN 300 MG SUPP RECTAL SCH ×2 (16:45→18:57)
[2021-04-01] MEDS: ATORVASTATIN 40 MG TAB PO SCH (19:49)
[2021-04-01 19:56] LABS: Glucose,Whole Blood 169 mg/dL (75-99)
--- NOTE | 2021-04-01 22:04 | P.PN ---
Subjective Progress Note Date: 04/01/21 Principal diagnosis: Acute CVA Mr. Betancourt is a 70-year-old male with a past medical history of asthma, stroke/TIA, diabetes mellitus, hard of hearing, hypertension, hyperlipidemia, stroke with residual loss of peripheral vision, chronic low back pain, chronic diarrhea, multiple joint osteoarthritis, Crohn's disease, Uskhy-Kcdpeiudy-Inney syndrome sent in from [facility] for right facial asymmetry. Patient was discharged from the hospital yesterday after being admitted and treated for acute ischemic stroke involving the left occipital lobe. Patient was n oncompliant with aspirin and Plavix. Patient had work-up for stroke including MRI of the brain, EP studies, CT angio, echocardiogram, brain CT. As per discussion with the patient he states that he had difficulty in speech which is new for him and so he was sent in for further evaluation. Patient denies having any active complaints. At the time of admission the patient's vital signs were temperature 99.2, heart rate, respiratory 18, blood pressure 107/78, saturating at 98% on room air. He had blood work done showing white count of 14.9, hemoglobin 16, platelets 219. Sodium 135, potassium 4.3, chloride 102, bicarb 29, BUN 24, creatinine 1.08. Albumin of 3.9. Patient had a CT of the showing new slightly decreased attenuation in the right in the region of the left thalamus, clinically correlate for acute vascular insult. So the patient being admitted for acute stroke. On 04/01/2021 -patient is seen and examined bedside. He is comfortably lying in bed. His speech is muffled. Patient denies having any active complaints. No complaints of fever chills or rigors. He denies having any chest pain or palpitations. He has mild difficulty in breathing and has been coughing slightly as per discussion with the nursing staff report. On reviewing the patient's vitals temperature 98.1, heart rate 100-1 10, respiratory rate 18, blood pressure 137/74, saturating at 94% on 3 L of oxygen. On reviewing the patient's labs white count of 14.9, hemoglobin 16, platelets 219. Sodium 135, potassium 4.5, chloride 102, bicarb 21, BUN 24, creatinine 1.08 total bilirubin of 1.8, alkaline phosphatase 129, creatinine kinase 41. Active Medications Acetaminophen (Acetaminophen Tab 500 Mg Tab) 500 mg PO Q6H PRN PRN Reason: Mild Pain Aspirin (Aspirin 300 Mg Supp) 300 mg RECTAL DAILY [facility] Last Admin: 04/01/21 18:57 Dose: Not Given Documented by: Atorvastatin Calcium (Atorvastatin 40 Mg Tab) 40 mg PO HS@1999 [facility] Last Admin: 04/01/21 19:49 Dose: Not Given Documented by: Budesonide/Formoterol Fumarate (Symbicort 160-4.5 Mcg Inhaler) 2 puff INHALATION RT-BID@0800,1600 [facility] Last Admin: 04/01/21 19:17 Dose: 2 puff Documented by: Finasteride (Finasteride 5 Mg Tab) 5 mg PO DAILY@0800 [facility] Last Admin: 04/01/21 12:30 Dose: Not Given Documented by: Sodium Chloride (Saline 0.9%) 1,000 mls @ 100 mls/hr IV .Q10H [facility] Last Admin: 04/01/21 20:20 Dose: Not Given Documented by: Insulin Aspart (Insulin Aspart (Novolog) 100 Unit/Ml Vial) 3 unit SQ ACHS [facility] Last Admin: 04/01/21 20:20 Dose: Not Given Documented by: Lactic Acid (Ammonium Lactate 12% Cream 140 Gm Tube) 1 applic TOPICAL BID [facility] Last Admin: 04/01/21 20:20 Dose: Not Given Documented by: Loratadine (Loratadine 10 Mg Tab) 10 mg PO DAILY@0800 [facility] Last Admin: 04/01/21 12:31 Dose: Not Given Documented by: Losartan Potassium (Losartan 25 Mg Tab) 25 mg PO DAILY@0800 [facility] Last Admin: 04/01/21 12:31 Dose: Not Given Documented by: Metformin HCl (Metformin 500 Mg Tab) 1,000 mg PO BID@0630,1600 [facility] Last Admin: 04/01/21 17:37 Dose: Not Given Documented by: Metoprolol Tartrate (Metoprolol Tartrate 25 Mg Tab) 25 mg PO BID@0800,1600 [facility] Last Admin: 04/01/21 17:37 Dose: Not Given Documented by: Nitroglycerin (Nitroglycerin Sl Tabs 0.4 Mg Tab) 0.4 mg SUBLINGUAL Q5M PRN PRN Reason: Chest Pain Pantoprazole Sodium (Pantoprazole 40 Mg Tablet) 40 mg PO AC-BRKFST [facility] Last Admin: 04/01/21 12:32 Dose: Not Given Documented by: Petrolatum (Petrolatum, White Oint 50 Gm Tube) 1 applic TOPICAL BID [facility] Last Admin: 04/01/21 20:20 Dose: Not Given Documented by: Objective - Vital Signs Vital signs: Vital Signs Temp 97.8 F 04/01/21 08:00 Pulse 103 H 04/01/21 12:00 Resp 19 04/01/21 12:00 BP 118/74 04/01/21 12:00 Pulse Ox 94 L 04/01/21 12:00 Intake & Output 03/31/21 04/01/21 04/01/21 18:59 06:59 18:59 Output Total 450 250 Balance -450 -250 Weight 79.379 kg 90.5 kg Output: Gastric Drainage 150 Urine 300 Stool 250 Other: Voiding Method Urinal Urinal - Exam PHYSICAL EXAMINATION: GENERAL: no acute distress. poorly kempt HEENT: Pupils are round and equally reacting to light. EOMI. No scleral icterus. No conjunctival pallor. CARDIOVASCULAR: S1 and S2 present. Tachycardia PULMONARY: Bilateral breath sounds positive, diminished at the lung bases. No wheezing. ABDOMEN: Soft,non -tender, normal bowel sounds. No guarding or rigidity. MUSCULOSKELETAL: No joint swelling or deformity. EXTREMITIES: No edema NEUROLOGICAL: Alert awake oriented 2-3 .Speech is muffled, Right facial droop Strenght - 3/5 in the right upper and lower extremity and 4/5 on the left side - Labs CBC & Chem 7: 03/31/21 14:09 03/31/21 14:09 Labs: Abnormal Lab Results - Last 24 Hours (Table) 03/31/21 03/31/21 03/31/21 Range/Units 14:00 14:09 14:09 WBC 14.9 H (3.8-10.6) k/uL Neutrophils # 12.0 H (1.3-7.7) k/uL Monocytes # 1.5 H (0-1.0) k/uL Sodium 135 L (137-145) mmol/L Carbon Dioxide 21 L (22-30) mmol/L BUN 24 H (9-20) mg/dL Glucose 237 H (74-99) mg/dL POC Glucose (mg/dL) 213 H (75-99) mg/dL Total Bilirubin 1.8 H (0.2-1.3) mg/dL Alkaline Phosphatase 129 H (38-126) U/L Creatine Kinase 41 L (55-170) U/L 03/31/21 03/31/21 04/01/21 Range/Units 20:38 20:50 01:52 WBC (3.8-10.6) k/uL Neutrophils # (1.3-7.7) k/uL Monocytes # (0-1.0) k/uL Sodium (137-145) mmol/L Carbon Dioxide (22-30) mmol/L BUN (9-20) mg/dL Glucose (74-99) mg/dL POC Glucose (mg/dL) 171 H 196 H 194 H (75-99) mg/dL Total Bilirubin (0.2-1.3) mg/dL Alkaline Phosphatase (38-126) U/L Creatine Kinase (55-170) U/L 04/01/21 04/01/21 Range/Units 06:08 12:00 WBC (3.8-10.6) k/uL Neutrophils # (1.3-7.7) k/uL Monocytes # (0-1.0) k/uL Sodium (137-145) mmol/L Carbon Dioxide (22-30) mmol/L BUN (9-20) mg/dL Glucose (74-99) mg/dL POC Glucose (mg/dL) 192 H 208 H (75-99) mg/dL Total Bilirubin (0.2-1.3) mg/dL Alkaline Phosphatase (38-126) U/L Creatine Kinase (55-170) U/L Assessment and Plan Assessment: ASSESSMENT Left facial droop/dysarthria- Acute CVA Recent history of ischemic left occipital lobe stroke History of multiple embolic strokes Noncompliance with aspirin and Plavix Hypertension Poorly controlled diabetes mellitus Hyperlipidemia Phana-Drzdgbwhe-Cojdg syndrome History of Crohn's disease History of exposure to asbestos in [place] History of nephrolithiasis Chronic diarrhea BPH Multiple joint osteoarthritis History of laminectomy and discectomy History of epidural abscess Former smoker PLAN: Patient has history of multiple strokes, which appeared embolic in nature, patient recently had complete stroke work-up including electrophysiological studies done by cardiology Every 4 hrs neurochecks Continue with telemetry monitoring Discussed with Neurology and MRI ordered Patient has been restarted on his home medications GI/DVT prophylaxsis - protonix /sq heparin Further recommendations to follow depending on the progress of the patient Spoke with his daughter Xena over the phone and updated her about his condition. She states that she is aware that he had multiple strokes in the past. Discussed that the overall prognosis is highly guarded.
[2021-04-02] MEDS: HEPARIN SODIUM,PORCINE/PF 5,000 UNIT/0.5 ML SYRINGE SQ SCH ×3 (00:17→16:46)
[2021-04-02 02:01] LABS: Glucose,Whole Blood 188 mg/dL (75-99)
[2021-04-02 05:51] LABS: Glucose,Whole Blood 219 mg/dL (75-99)
[2021-04-02] MEDS: INSULIN ASPART (NovoLOG) 100 UNIT/ML VIAL SQ SCH ×4 (06:31→21:36)
[2021-04-02] MEDS: metFORMIN 500 MG TAB PO SCH ×2 (06:31→16:47)
[2021-04-02] MEDS: PANTOPRAZOLE 40 MG TABLET PO SCH (06:32)
[2021-04-02] MEDS: SODIUM CHLORIDE 0.9% 1,000 ML IV SCH ×2 (06:32→17:43)
[2021-04-02] MEDS: SYMBICORT 160-4.5 MCG INHALER INHALATION SCH ×2 (07:34→19:53)
[2021-04-02] MEDS: LORATADINE 10 MG TAB PO SCH (08:01)
[2021-04-02] MEDS: FINASTERIDE 5 MG TAB PO SCH (08:01)
[2021-04-02] MEDS: LOSARTAN 25 MG TAB PO SCH (08:02)
[2021-04-02] MEDS: METOPROLOL TARTRATE 25 MG TAB PO SCH ×2 (08:02→16:47)
[2021-04-02] MEDS: PETROLATUM, WHITE OINT 50 GM TUBE TOPICAL SCH ×2 (08:04→21:35)
[2021-04-02] MEDS: AMMONIUM LACTATE 12% CREAM 140 GM TUBE TOPICAL SCH ×2 (08:04→21:35)
[2021-04-02] MEDS: ASPIRIN 300 MG SUPP RECTAL SCH (08:04)
[2021-04-02 08:24] LABS: Basophils % (A) 0 %; Eosinophils # (A) 0.1 k/uL (0-0.7); Eosinophils % (A) 1 %; HCT 45.6 % (39.0-53.0); HGB 15.3 gm/dL (13.0-17.5); Lymphocytes # (A) 0.7 k/uL (1.0-4.8); Lymphocytes % (A) 6 %; MCH 28.9 pg (25.0-35.0); MCHC 33.6 g/dL (31.0-37.0); Mean Platelet Volume 7.9; Monocytes # (A) 1.1 k/uL (0-1.0); Monocytes % (A) 9 %; Neutrophils # (A) 9.6 k/uL (1.3-7.7); Neutrophils % (A) 82 %; Platelet Count 243 k/uL (150-450); RDW 14.7 % (11.5-15.5); WBC 11.7 k/uL (3.8-10.6)
[2021-04-02 09:09] LABS: African American GFR (CKD) >90 (>60 ml/min/1.73 sqM); Blood Urea Nitrogen 45 mg/dL (9-20); Carbon Dioxide 26 mmol/L (22-30); Glucose 270 mg/dL (74-99); Non-African American GFR(CKD) >90 (>60 ml/min/1.73 sqM); Potassium 4.9 mmol/L (3.5-5.1); Sodium 139 mmol/L (137-145)
[2021-04-02 09:10] LABS: Calcium 9.5 mg/dL (8.4-10.2)
[2021-04-02 10:04] LABS: Anion Gap 11 mmol/L; Chloride 102 mmol/L (98-107)
[2021-04-02] MEDS: METOPROLOL TARTRATE 5 MG/5 ML VIAL IVP SCH ×3 (10:15→17:42)
--- NOTE | 2021-04-02 11:38 | P.CRDCN ---
History of Present Illness Consult date: 04/02/21 History of present illness: HISTORY OF PRESENT ILLNESS: This is a 70-year-old male with a past medical history significant for recent CVA, previous noncompliance with medications, paroxysmal atrial fibrillation, cardiomyopathy, coronary artery disease with previous PCI to the LAD, hyperlipidemia. Patient follows in the office with Dr. Archuleta. We have been asked to see the patient in consultation for CVA with history of atrial fibrillation. Patient was recently hospitalized at the beginning of the month secondary to CVA. Patient had an MRI at that time revealing bilateral old occipital lobe infarcts. Old left cerebellar hemisphere infarct. Small left occipital lobe cortical increased signal on the diffusion images suggestive of an acute infarct. Patient states prior to that admission he was not compliant with his medications. However at the last admission [facility] and has been compliant with his medications since that time. Patient was prescribed aspirin, Eliquis, and simvastatin. Patient states he presented back to the hospital due to vision changes in his right eye and loss of hearing on the right side. Patient had an MRI performed revealing interval infarct involving lateral brainstem, right middle cerebral peduncle. Patient examined at the bedside. Patient denies chest pain or pressure. He denies shortness of breath. He does report a congested cough and is not able to bring up his phlegm. She denies any heart palpitations. He continues to have difficulty with his vision on the right side. Patient does have left-sided weakness from a previous CVA. He denies any weakness of his activities on the right side. Patient is currently nothing by mouth and is scheduled for swallow evaluation today. EKG reveals sinus tachycardia Chest xray negative for acute process Laboratory data: WBC 11.7. Hemoglobin 15.3. Platelet count 243. Sodium 135. Potassium 4.5. BUN 24. Creatinine 1.08. Troponin 0.018. LDL 70.8. Current home cardiac medications include simvastatin 80 mg daily, metoprolol tartrate 25 mg twice a day, losartan 25 mg daily, aspirin 81 mg daily, and Eliquis 5 mg twice a day Most recent echocardiogram obtained on 03/25/2021 revealed ejection fraction 40- 45%, anterior septal hypokinesis, mild mitral regurgitation, and mild tricuspid regurgitation Cardiac catheterization history: June 2020 with PCI to proximal to mid LAD which showed a 95% stenosis with overlapping stents REVIEW OF SYSTEMS: At the time of my exam: CONSTITUTIONAL: Denies fever or chills. HEENT: Denies blurred vision, vision changes, or eye pain. Denies hemoptysis CARDIOVASCULAR: Denies chest pain. Denies orthopnea. Denies PND. Denies palpitations RESPIRATORY: Denies shortness of breath. GASTROINTESTINAL: Denies abdominal pain. Denies nausea or vomiting. HEMATOLOGIC: Denies bleeding disorders. GENITOURINARY: Denies any blood in urine. SKIN: Denies pruitis. Denies rash. PHYSICAL EXAM: VITAL SIGNS: Reviewed. GENERAL: Well-developed in no acute distress. HEENT: Head is normocephalic. Pupils are equal, round. Sclerae anicteric. Mucous membranes of the mouth are moist. Neck supple. No JVD or thyromegaly LUNGS: Respirations even and unlabored. Lungs coarse with bilateral rhonchi HEART: Tachycardic Regular rate and rhythm. S1 and S2 heard. ABDOMEN: Soft. Nondistended. Nontender. EXTREMITIES: Left-sided weakness from previous CVA No clubbing or cyanosis. Peripheral pulses intact. No lower extremity edema NEUROLOGIC: Awake and alert. Oriented x 3. ASSESSMENT: Acute CVA, MRI performed revealing interval infarct involving lateral brainstem, right middle cerebral peduncle Recent hospitalization for acute occipital CVA Paroxysmal atrial fibrillation, on anticoagulation with Eliquis Coronary artery disease with previous PCI to LAD, June 2020 Hyperlipidemia History of medication noncompliance PLAN: Repeat 2D echo Continue telemetry monitoring Continue home cardiac medications Patient is currently nothing by mouth and scheduled for a swallow evaluation today. Patient unable to take oral metoprolol. Patient is currently tachycardic with a heart rate in the 110s. Will begin metoprolol IV 2.5 mg IV every 6 hours Patient's Eliquis is on hold per neurology. Resume when okay with neurology Further recommendations pending patient course Nurse practitioner note has been reviewed by physician. Signing provider agrees with the documented findings, assessment, and plan of care. Past Medical History Past Medical History: Asthma, CVA/TIA, Diabetes Mellitus, Hearing Disorder / Deafness, Hyperlipidemia, Hypertension, Prostate Disorder, Renal Disease Additional Past Medical History / Comment(s): STROKE -RESIDUAL HAS LOSS OF PERIPHERAL VISION, back pain, chronic diarrhea, BPH, ARTHRITIS R ankle, DJD, kidney stones, asbestos exposure in the [place], UTI, Crohn's disease, Mead Parkinson White syndrome., History of Any Multi-Drug Resistant Organisms: MRSA Date of last positivie culture/infection: January 2015 (At [facility] per patient) MDRO Source:: Right Ankle and Back (per patient) Past Surgical History: Adenoidectomy, Bowel Resection, Orthopedic Surgery, Tonsillectomy Additional Past Surgical History / Comment(s): 01/2015 Laminectomy, discectomy with decompression L5-S1, I&D epidural abscess L5-S1 (STATED HAD MULTIPLE BX- BENIGN)and aspiration R ankle, 02[place] [facility] [place] . left wrist surgically repaired after fx-PLATE/SCREW. RT HIP TEVIN/SCREWS. ileostomy end of May Past Anesthesia/Blood Transfusion Reactions: No Reported Reaction Additional Past Anesthesia/Blood Transfusion Reaction / Comment(s): Pt states he recieved blood 02/2015 at [facility] without reaction. Past Psychological History: No Psychological Hx Reported Smoking Status: Former smoker Past Alcohol Use History: None Reported Past Drug Use History: None Reported - Past Family History Father Family Medical History: Myocardial Infarction ([place]) Additional Family Medical History / Comment(s): Father of massive [place]. Mother Family Medical History: Diabetes Mellitus Medications and Allergies Home Medications Medication Instructions Recorded Confirmed Type Budesonide-Formot 160-4.5 Mcg 2 puff INHALATION RT-BID@0800,159906/11/20 03/31/21 History [Symbicort 160-4.5 Mcg Inhaler] Finasteride [Proscar] 5 mg PO DAILY@79906/11/20 03/31/21 History Nitroglycerin Sl Tabs [Nitrostat] 0.4 mg SL Q5M PRN 07/24/20 03/31/21 History Ammonium Lactate Cream [Lac-Hydrin 1 applic TOPICAL BID 03/24/21 03/31/21 History 12% Cream] Cetirizine HCl [Zyrtec] 10 mg PO DAILY@79903/24/21 03/31/21 History Glucosamine/Chondr Barrios A Sod [Osteo 1 tab PO BID@0800,1600 03/24/21 03/31/21 History Bi-Flex Caplet] Petrolatum, White [Aquaphor] 1 applic TOPICAL BID 03/24/21 03/31/21 History Simvastatin [Zocor] 80 mg PO HS@199903/24/21 03/31/21 History Acetaminophen Tab [Tylenol Tab] 500 mg PO Q6H PRN #30 tablet 03/30/21 03/31/21 Rx Apixaban [Eliquis] 5 mg PO BID@0800,1600 03/31/21 03/31/21 History Aspirin 81 mg PO DAILY@0800 03/31/21 03/31/21 History Fexofenadine HCl 60 mg PO DAILY@0800 03/31/21 03/31/21 History Fluticasone/Vilanterol [Breo 1 puff INHALATION RT-DAILY 03/31/21 03/31/21 History Ellipta 100-25 Mcg Inhaler] INSULIN ASPART (NovoLOG) [NovoLOG 3 unit SQ ACHS 03/31/21 03/31/21 History (formulary)] Losartan [Cozaar] 25 mg PO DAILY@0800 03/31/21 03/31/21 History Metoprolol Tartrate 25 mg PO BID@0800,1600 03/31/21 03/31/21 History metFORMIN HCL [Glucophage] 1,000 mg PO BID@0630,1600 03/31/21 03/31/21 History Allergies Allergy/AdvReac Type Severity Reaction Status Date / Time No Known Allergies Allergy Verified 03/31/21 14:20 Physical Exam Vitals: Vital Signs Temp Pulse Resp BP Pulse Ox 04/02/21 07:47 97.9 F 129 H 20 145/90 93 L 04/02/21 04:00 98.0 F 62 16 134/95 93 L 04/02/21 02:00 16 04/02/21 00:00 98.0 F 111 H 16 104/51 91 L 04/01/21 20:00 16 04/01/21 19:52 98.0 F 79 16 118/81 91 L 04/01/21 16:33 19 94 L 04/01/21 16:00 98.1 F 115 H 18 137/74 94 L 04/01/21 12:00 103 H 19 118/74 94 L 04/01/21 09:23 93 L Intake and Output 04/01/21 04/02/21 04/02/21 22:59 06:59 14:59 Output Total 150 700 Balance -150 -700 Output: Gastric Drainage 150 Urine 550 Stool 150 Other: Voiding Method Urinal Urinal # Voids 2 Weight 88 kg Results 04/02/21 07:41 04/02/21 07:41 Lipids 04/01/21 Range/Units 07:34 Triglycerides 111.0 (0.0-149.0) mg/dL Cholesterol 139 (0-200) mg/dL HDL Cholesterol 46.0 (40.0-60.0) mg/dL Cholesterol/HDL Ratio 3.02 CBC 04/02/21 Range/Units 07:41 WBC 11.7 H (3.8-10.6) k/uL RBC 5.30 (4.30-5.90) m/uL Hgb 15.3 (13.0-17.5) gm/dL Hct 45.6 (39.0-53.0) % Plt Count 243 (150-450) k/uL Current Medications Generic Name Dose Route Start Last Admin Trade Name Freq PRN Reason Stop Dose Admin Acetaminophen 500 mg 03/31/21 16:33 Acetaminophen Tab 500 Mg Tab PO Q6H PRN Mild Pain Aspirin 300 mg 04/01/21 13:00 04/02/21 08:04 Aspirin 300 Mg Supp RECTAL Not Given DAILY [facility] Atorvastatin Calcium 40 mg 03/31/21 20:00 04/01/21 19:49 Atorvastatin 40 Mg Tab PO Not Given HS@2000 [facility] Budesonide/Formoterol Fumarate 2 puff 04/01/21 08:00 04/02/21 07:34 Symbicort 160-4.5 Mcg Inhaler INHALATION 2 puff RT-BID@0800,1600 [facility] Administration Finasteride 5 mg 04/01/21 08:00 04/02/21 08:01 Finasteride 5 Mg Tab PO Not Given DAILY@0800 [facility] Heparin Sodium (Porcine) 5,000 unit 04/02/21 00:00 04/02/21 07:55 Heparin Sodium,Porcine/Pf 5,000 Unit/0.5 Ml Syringe SQ 5,000 unit Q8HR JOHN Administration Sodium Chloride 1,000 mls @ 100 mls/hr 03/31/21 16:45 04/02/21 06:32 Saline 0.9% IV Not Given .Q10H JOHN Insulin Aspart 3 unit 03/31/21 17:30 04/02/21 06:31 Insulin Aspart (Novolog) 100 Unit/Ml Vial SQ Not Given ACHS JOHN Lactic Acid 1 applic 03/31/21 21:00 04/02/21 08:04 Ammonium Lactate 12% Cream 140 Gm Tube TOPICAL Not Given BID JOHN Loratadine 10 mg 04/01/21 08:00 04/02/21 08:01 Loratadine 10 Mg Tab PO Not Given DAILY@0800 [facility] Losartan Potassium 25 mg 04/01/21 08:00 04/02/21 08:02 Losartan 25 Mg Tab PO Not Given DAILY@0800 [facility] Metformin HCl 1,000 mg 04/01/21 06:30 04/02/21 06:31 Metformin 500 Mg Tab PO Not Given BID@0630,1600 [facility] Metoprolol Tartrate 25 mg 04/01/21 08:00 04/02/21 08:02 Metoprolol Tartrate 25 Mg Tab PO Not Given BID@0800,1600 [facility] Nitroglycerin 0.4 mg 03/31/21 16:33 Nitroglycerin Sl Tabs 0.4 Mg Tab SUBLINGUAL Q5M PRN Chest Pain Pantoprazole Sodium 40 mg 04/01/21 10:30 04/02/21 06:32 Pantoprazole 40 Mg Tablet PO Not Given [facility] Petrolatum 1 applic 03/31/21 21:00 04/02/21 08:04 Petrolatum, White Oint 50 Gm Tube TOPICAL Not Given BID [facility] Intake and Output 04/01/21 04/02/21 04/02/21 22:59 06:59 14:59 Output Total 150 700 Balance -150 -700 Output: Gastric Drainage 150 Urine 550 Stool 150 Other: Voiding Method Urinal Urinal # Voids 2 Weight 88 kg 04/02/21 07:41 03/31/21 14:09
--- NOTE | 2021-04-02 11:59 | P.PN ---
Subjective Progress Note Date: 04/02/21 The patient seen at bedside and his condition has been the same today compared to yesterday. He is stil having severely slurring of speech. He refuses his aspirin rectally. He's not able to swallow and speech therapist the is going to do as speech as well as study. Otherwise the patient feels he is about the same today compared to yesterday. Objective - Vital Signs Vital signs: Vital Signs Temp 97.9 F 04/02/21 07:47 Pulse 111 H 04/02/21 11:20 Resp 22 04/02/21 11:20 BP 129/79 04/02/21 11:20 Pulse Ox 94 L 04/02/21 11:20 Intake & Output 04/01/21 04/02/21 04/02/21 18:59 06:59 18:59 Output Total 250 150 700 Balance -250 -150 -700 Weight 88 kg Output: Gastric Drainage 150 Urine 550 Stool 250 150 Other: Voiding Method Urinal Urinal # Voids 2 - Exam GENERAL: The patient is lying in bed and seems in distress. NEUROLOGICAL: Higher mental function: The patient is awake, alert, oriented to self, place and time. Patient is following commands. No aphasia and no neglect. Cranial nerves: The pupils are round, equal and reactive to light. Visual dhillon are hard to assess but after multiple tests on the right eye he had field defect over the right lower temporal and left upper nasal and on left he has left upper temporal and questionable right lower nasal. Extraocular movement is intact no nystagmus is noted. He has ptosis of the left eye. Facial sensation is decreased to touch over the right V1 otherwise normal throughout. The facial strength is weakness over entire side (upper and lower). Hearing is decreased to absent over the right while normal to hand rub over the left. to hand rub. Tongue is midline and moved [id number] without any difficulty. Severe dysarthria is noted. Motor: Gait is deferred. The strength is Right hand central sterilization technician is 4 while left is 4+. Otherwise 5 over 5 throughout. Normal tone and bulk. Cerebellum: Normal finger to nose bilaterally. Sensation: Sensation is normal to touch throughout. Reflexes (right/left): 2+ at bilateral triceps. Otherwise 1+ throughout. Plantars are mute bilaterally. LABS/IMAGING/OTHER TESTS: * Lipid panel: Triglyceride 111, cholesterol 139, LDL 70 and HDL 46. * MR the brain is reported as interval infarct as described involving the lateral brain stem, right middle cerebral peduncle. Consistent embolic disease. Mastoid signal abnormalities are again noted that. In the body the report is mentioned that the patient has diffusion weighted images demonstrated an interval restricted diffusion involving the lateral aspect of the lingual lobe, taty, anterior aspect of the middle cerebellar peduncle with corresponding hyperintensity present on inversion recovery to T2 weighted sequence. * CT angiography of the head and neck that was done on 03/25/2021 just recently before him and come back is reported as mild other sclerotic change at the bifurcation. No hemodynamically significant ICA stenosis on either side. Mild others carotid narrowing at the origin of the right vertebral artery. * While for the head is reported as mild others carotid narrowing at the V3/V4 junction of the bilateral vertebral arteries. No large vessel intracranial arterial occlusion, significant stenosis or aneurysm changes seen. - Labs CBC & Chem 7: 04/02/21 07:41 04/02/21 07:41 Labs: Abnormal Lab Results - Last 24 Hours (Table) 04/01/21 04/01/21 04/01/21 Range/Units 12:00 16:36 19:55 WBC (3.8-10.6) k/uL Neutrophils # (1.3-7.7) k/uL Lymphocytes # (1.0-4.8) k/uL Monocytes # (0-1.0) k/uL BUN (9-20) mg/dL Glucose (74-99) mg/dL POC Glucose (mg/dL) 208 H 215 H 169 H (75-99) mg/dL 04/02/21 04/02/21 04/02/21 Range/Units 01:59 05:50 07:41 WBC 11.7 H (3.8-10.6) k/uL Neutrophils # 9.6 H (1.3-7.7) k/uL Lymphocytes # 0.7 L (1.0-4.8) k/uL Monocytes # 1.1 H (0-1.0) k/uL BUN (9-20) mg/dL Glucose (74-99) mg/dL POC Glucose (mg/dL) 188 H 219 H (75-99) mg/dL 04/02/21 Range/Units 07:41 WBC (3.8-10.6) k/uL Neutrophils # (1.3-7.7) k/uL Lymphocytes # (1.0-4.8) k/uL Monocytes # (0-1.0) k/uL BUN 45 H (9-20) mg/dL Glucose 270 H (74-99) mg/dL POC Glucose (mg/dL) (75-99) mg/dL Assessment and Plan Assessment: * Acute entire facial weakness due to acute cerebral ischemic stroke. Etiology is embolic. * Dysphagia due to above * On CT of the head it is reported "new slightly decreased attenuation in the region of the left thalamus. Correlate clinically for acute vascular insult". Upon reviewing MRI of the brain on 03/26/2021 I felt he has an old left thalamus the lacunar stroke. 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 Patient was notified that holding off the anticoagulation increases risk of further strokes but also at the same time there is a risk of bleeding and he understands and he is willing to hold off anticoagulation. On Aspirin 300mg rectaly but refusing. Has Lipitor 40 mg daily at bedtime for secondary stroke prophylaxis (not getting it because of swallowing difficulty). I'll get a repeat CT angiography of the head and neck and (the patient had a recent imaging and nothing was significant as reported). PT, OT and ANTITANK ASSAULT GUNNER are consulted. Pending barium swallow with video. On cardiac monitoring and continue neuro checks Cardiology is consulted. Possibly consider SALINAS. Cardiology ordered the limited 2-D echo. Will defer the rest of medical management to the primary team. Patient's condition is very guarded. The plan is discussed with the patient's nurse and his primary team. I attempted to address the CODE STATUS but the patient wants to be full code. UPDATE: CT angiography of the head and neck was reported as no significant diameter reduction thank you for the patient's symptoms. I personally could not reviewed the patient's imaging because of problems with the system. Hiram Pringle MD Neuro-Hospitalist Time with Patient: Less than 30
[2021-04-02 12:06] LABS: Glucose,Whole Blood 306 mg/dL (75-99)
--- NOTE | 2021-04-02 12:48 | ECHOF ---
Referral Reason:acute CVA MEASUREMENTS -------- HEIGHT: 182.9 cm WEIGHT: 88.0 kg BP: 145/90 FINDINGS -------- Resting tachycardia (HR>100bpm). Limited Study There is moderate global hypokinesis of LV . Overall left ventricular systolic function is moderate -severely impaired with, an EF between 30 - 35 %. 5 ml of Lumason was utilized for enhancement of images. There is a small pericardial effusion is located near the right ventricle. CONCLUSIONS -------- 1. Resting tachycardia (HR>100bpm). 2. Limited Study 3. There is moderate global hypokinesis of LV . 4. Overall left ventricular systolic function is moderate-severely impaired with, an EF between 30 - 35 %. 5. 5 ml of Lumason was utilized for enhancement of images. 6. There is a small pericardial effusion is located near the right ventricle. ULTRASONIC WELDING MACHINE OPERATOR: Corine Holguin RDCS
--- NOTE | 2021-04-02 14:31 | CT ---
EXAMINATION TYPE: CT angio head neck DATE OF EXAM: 04/02/2021 COMPARISON: None HISTORY: New stroke (brainstem) CT DLP: 416 mGycm CONTRAST: Performed without and with IV Contrast, patient injected with 65 ml mL of Isovue 370. Combination Contrast CTA cervical carotids and Silex of Tee CTA cervical carotids with 3-D recons truction Contrast CTA of the cervical carotids was performed 3-D reconstruction imaging obtained at a separate workstation. Right carotid system: Mild plaque is seen of the right common carotid artery. There is mild plaque a lso noted at the carotid bulb and proximal ICA. No significant diameter reduction. ECA is patent. Right vertebral artery appears unremarkable. Left carotid system: Mild plaque is seen of the left common carotid artery. There is mild plaque als o noted at the carotid bulb and proximal ICA. No significant diameter reduction. ECA is patent. Lef t vertebral artery appears unremarkable. IMPRESSION: 1. No significant diameter reduction to account for the patient's symptoms. CTA qagan t[place]ungin of Tee with 3-D reconstruction Contrast CTA of the qagan t[place] of Tee was performed 3-D reconstruction imaging obtained at a separate workstation. Vertebrobasilar system as well as intracranial portions of the internal carotid arteries and their ma andrea tributaries are patent. I do not see evidence for sizable aneurysm or vascular malformation. Pl ease note MRI provides greater sensitivity and specificity. Visualized brain appears grossly unremar kable. IMPRESSION: 1. No significant abnormality.
--- NOTE | 2021-04-02 14:33 | FL ---
EXAMINATION TYPE: FL barium swallow w video DATE OF EXAM: 04/02/2021 COMPARISON: NONE HISTORY: Cerebrovascular accident, dysphagia. FINDINGS: Patient was evaluated in real-time fluoroscopy in the lateral projection while ingesting barium mixe d with liquids. Aspiration was noted. Disorganized swallow is present, failure of epiglottic inversio n noted on several swallowing attempts. See dictated report from speech pathology. no intraoperative images, 1 minute 37 seconds fluoroscopy time
[2021-04-02 16:39] LABS: Glucose,Whole Blood 347 mg/dL (75-99)
[2021-04-02 21:05] LABS: Glucose,Whole Blood 299 mg/dL (75-99)
[2021-04-02] MEDS: ATORVASTATIN 40 MG TAB PO SCH (21:22)
--- NOTE | 2021-04-03 00:29 | P.PN ---
Subjective Progress Note Date: 04/02/21 Principal diagnosis: Acute CVA Mr. Betancourt is a 70-year-old male with a past medical history of asthma, stroke/TIA, diabetes mellitus, hard of hearing, hypertension, hyperlipidemia, stroke with residual loss of peripheral vision, chronic low back pain, chronic diarrhea, multiple joint osteoarthritis, Crohn's disease, Knove-Ntbdkiovi-Dkulw syndrome sent in from [facility] for right facial asymmetry. Patient was discharged from the hospital yesterday after being admitted and treated for acute ischemic stroke involving the left occipital lobe. Patient was n oncompliant with aspirin and Plavix. Patient had work-up for stroke including MRI of the brain, EP studies, CT angio, echocardiogram, brain CT. As per discussion with the patient he states that he had difficulty in speech which is new for him and so he was sent in for further evaluation. Patient denies having any active complaints. At the time of admission the patient's vital signs were temperature 99.2, heart rate, respiratory 18, blood pressure 107/78, saturating at 98% on room air. He had blood work done showing white count of 14.9, hemoglobin 16, platelets 219. Sodium 135, potassium 4.3, chloride 102, bicarb 29, BUN 24, creatinine 1.08. Albumin of 3.9. Patient had a CT of the showing new slightly decreased attenuation in the right in the region of the left thalamus, clinically correlate for acute vascular insult. So the patient being admitted for acute stroke. On 04/01/2021 -patient is seen and examined bedside. He is comfortably lying in bed. His speech is muffled. Patient denies having any active complaints. No complaints of fever chills or rigors. He denies having any chest pain or palpitations. He has mild difficulty in breathing and has been coughing slightly as per discussion with the nursing staff report. On reviewing the patient's vitals temperature 98.1, heart rate 100-1 10, respiratory rate 18, blood pressure 137/74, saturating at 94% on 3 L of oxygen. On reviewing the patient's labs white count of 14.9, hemoglobin 16, platelets 219. Sodium 135, potassium 4.5, chloride 102, bicarb 21, BUN 24, creatinine 1.08 total bilirubin of 1.8, alkaline phosphatase 129, creatinine kinase 41. On 04/02/2021 -patient is comfortably lying in bed appears to be in no acute distress. He just got back from barium swallow. He is comfortably lying in bed appears to be no acute distress. Patient appears to be having gurgling sounds while talking and his speech is muffled. He does not have any active complaints, he denies having any fevers chills or rigors. No chest pain or palpitations. On reviewing his vitals temperature of 97.7, heart rate between 90s to 110s, respiratory rate 22, blood pressure 138/88, saturating at 94% on 3 L of oxygen. On reviewing his labs from this morning white count of 11.7, hemoglobin 10.3, platelets 243. Sodium 139, potassium 4.9, chloride 102, bicarb 26, BUN 45, creatinine 0.84. Blood sugars running between 200s to 300s. Active Medications Acetaminophen (Acetaminophen Tab 500 Mg Tab) 500 mg PO Q6H PRN PRN Reason: Mild Pain Aspirin (Aspirin 300 Mg Supp) 300 mg RECTAL DAILY [facility] Last Admin: 04/02/21 08:04 Dose: Not Given Documented by: Atorvastatin Calcium (Atorvastatin 40 Mg Tab) 40 mg PO HS@2000 [facility] Last Admin: 04/02/21 21:22 Dose: Not Given Documented by: Budesonide/Formoterol Fumarate (Symbicort 160-4.5 Mcg Inhaler) 2 puff INHAL ATION RT-BID@0800,1600 [facility] Last Admin: 04/02/21 19:53 Dose: 2 puff Documented by: Finasteride (Finasteride 5 Mg Tab) 5 mg PO DAILY@0800 [facility] Last Admin: 04/02/21 08:01 Dose: Not Given Documented by: Heparin Sodium (Porcine) (Heparin Sodium,Porcine/Pf 5,000 Unit/0.5 Ml Syringe) 5,000 unit SQ Q8HR [facility] Last Admin: 04/02/21 16:46 Dose: 5,000 unit Documented by: Insulin Aspart (Insulin Aspart (Novolog) 100 Unit/Ml Vial) 3 unit SQ ACHS [facility] Last Admin: 04/02/21 21:36 Dose: 3 unit Documented by: Lactic Acid (Ammonium Lactate 12% Cream 140 Gm Tube) 1 applic TOPICAL BID [facility] Last Admin: 04/02/21 21:35 Dose: 1 applic Documented by: Loratadine (Loratadine 10 Mg Tab) 10 mg PO DAILY@0800 [facility] Last Admin: 04/02/21 08:01 Dose: Not Given Documented by: Losartan Potassium (Losartan 25 Mg Tab) 25 mg PO DAILY@0800 [facility] Last Admin: 04/02/21 08:02 Dose: Not Given Documented by: Metformin HCl (Metformin 500 Mg Tab) 1,000 mg PO BID@0630,1600 [facility] Last Admin: 04/02/21 16:47 Dose: Not Given Documented by: Metoprolol Tartrate (Metoprolol Tartrate 25 Mg Tab) 25 mg PO BID@0800,1600 [facility] Last Admin: 04/02/21 16:47 Dose: Not Given Documented by: Metoprolol Tartrate (Metoprolol Tartrate 5 Mg/5 Ml Vial) 2.5 mg IVP Q6HR [facility] Last Admin: 04/02/21 17:42 Dose: 2.5 mg Documented by: Nitroglycerin (Nitroglycerin Sl Tabs 0.4 Mg Tab) 0.4 mg SUBLINGUAL Q5M PRN PRN Reason: Chest Pain Pantoprazole Sodium (Pantoprazole 40 Mg Tablet) 40 mg PO AC-BRKFST [facility] Last Admin: 04/02/21 06:32 Dose: Not Given Documented by: Petrolatum (Petrolatum, White Oint 50 Gm Tube) 1 applic TOPICAL BID [facility] Last Admin: 04/02/21 21:35 Dose: 1 applic Documented by: Objective - Vital Signs Vital signs: Vital Signs Temp 97.9 F 04/02/21 07:47 Pulse 105 H 04/02/21 12:36 Resp 22 04/02/21 11:20 BP 126/79 04/02/21 12:36 Pulse Ox 94 L 04/02/21 11:20 Intake & Output 04/01/21 04/02/21 04/02/21 18:59 06:59 18:59 Output Total 250 150 700 Balance -250 -150 -700 Weight 88 kg Output: Gastric Drainage 150 Urine 550 Stool 250 150 Other: Voiding Method Urinal Urinal # Voids 2 - Exam PHYSICAL EXAMINATION: GENERAL: no acute distress. HEENT: Pupils are round and equally reacting to light. EOMI. No scleral icterus. No conjunctival pallor. CARDIOVASCULAR: S1 and S2 present. Tachycardia PULMONARY: Bilateral breath sounds positive, diminished at the lung bases. No wheezing. ABDOMEN: Soft,non -tender, normal bowel sounds. No guarding or rigidity. MUSCULOSKELETAL: No joint swelling or deformity. EXTREMITIES: No edema NEUROLOGICAL: Alert awake oriented 2-3 .Speech is muffled, Right facial droop Strenght - 3/5 in the right upper and lower extremity and 4/5 on the left side - Labs CBC & Chem 7: 04/02/21 07:41 04/02/21 07:41 Labs: Abnormal Lab Results - Last 24 Hours (Table) 04/01/21 04/01/21 04/02/21 Range/Units 16:36 19:55 01:59 WBC (3.8-10.6) k/uL Neutrophils # (1.3-7.7) k/uL Lymphocytes # (1.0-4.8) k/uL Monocytes # (0-1.0) k/uL BUN (9-20) mg/dL Glucose (74-99) mg/dL POC Glucose (mg/dL) 215 H 169 H 188 H (75-99) mg/dL 04/02/21 04/02/21 04/02/21 Range/Units 05:50 07:41 07:41 WBC 11.7 H (3.8-10.6) k/uL Neutrophils # 9.6 H (1.3-7.7) k/uL Lymphocytes # 0.7 L (1.0-4.8) k/uL Monocytes # 1.1 H (0-1.0) k/uL BUN 45 H (9-20) mg/dL Glucose 270 H (74-99) mg/dL POC Glucose (mg/dL) 219 H (75-99) mg/dL 04/02/21 Range/Units 11:55 WBC (3.8-10.6) k/uL Neutrophils # (1.3-7.7) k/uL Lymphocytes # (1.0-4.8) k/uL Monocytes # (0-1.0) k/uL BUN (9-20) mg/dL Glucose (74-99) mg/dL POC Glucose (mg/dL) 306 H (75-99) mg/dL Assessment and Plan Assessment: ASSESSMENT Left facial droop/dysarthria- Acute CVA Infract involving the lateral brainstem, right middle cerebral peduncle Recent history of ischemic left occipital lobe stroke History of multiple embolic strokes Noncompliance with aspirin and Plavix Hypertension Poorly controlled diabetes mellitus Hyperlipidemia Ejpun-Fxlndqypj-Stqbo syndrome History of Crohn's disease History of exposure to asbestos in [place] History of nephrolithiasis Chronic diarrhea BPH Multiple joint osteoarthritis History of laminectomy and discectomy History of epidural abscess Former smoker PLAN: Every 4 hrs neurochecks Continue with telemetry monitoring Discussed with Neurology, MRI showing interval infract involving the lateral brainstem, right middle cerebral peduncle, consistent with embolic disease Oral anticoagulation on hold as there is acute ischemic stroke, to prevent hemorrhagic conversion At risk of aspiration, so elevation of head end of olivia bed and aspiration precautions, continue NPO PT OT and speech on board-patient - just got back from barium swallow Cardiology is consulted-to repeat a 2D echo Further recommendations to follow depending on the progress of the patient Spoke with his daughter Xena over the phone and updated her about his condition yesterday. Overall prognosis is very poor . Patient wants to be a FULL CODE.
[2021-04-03] MEDS: METOPROLOL TARTRATE 5 MG/5 ML VIAL IVP SCH (00:45)
[2021-04-03 01:48] LABS: Glucose,Whole Blood 281 mg/dL (75-99)
[2021-04-03 02:52] VITALS: RESP 18
[2021-04-03 05:05] LABS: Glucose,Whole Blood 303 mg/dL (75-99)
[2021-04-03] MEDS ORDERED: SODIUM BICARB 8.4% 50 ML SYR (1 MEQ/ML) ONE (05:06)
[2021-04-03] MEDS ORDERED: CALCIUM CHLORIDE 100 MG/ML 10 ML SYRINGE ONE (05:06)
[2021-04-03] MEDS ORDERED: EPINEPHrine 10 ML SYRINGE (0.1 MG/ML) ONE (05:06)
[2021-04-03] MEDS ORDERED: propofoL 100 ML IV ONE (05:07)
[2021-04-03] MEDS ORDERED: NOREPINEPHRIN 4 MG-0.9% NS PMX 4 MG/250 ML ML IV ONE (05:07)
[2021-04-03 05:20] LABS: Glucose,Whole Blood 354 mg/dL (75-99)
--- NOTE | 2021-04-03 05:23 | P.EN ---
Code Blue note Activated at 4:55 am. I was already on the scene from an A-team for the same patient. Discussed the case with the RN and reviewed the chart. The patient was admitted to the hospital with an acute CVA, subsequently diagnosed as a brainstem embolic infarct. The patient was found by the RN to be unresponsive, at which time the A-team was activated. Shortly after arrival, the patient lost his pulse and the CODE BLUE was activated. The ACLS protocol was performed with PEA on the monitor, epinephrine IV push 2, and sodium bicarbonate 1. Patient subsequently had ROSC at 5:10 AM. The primary team and the family were both notified by the RN. The patient was transferred to the medical ICU in critical condition. Please refer to the code sheet for further details.
[2021-04-03 06:13] VITALS: BP 124/54; PULSE 132; TEMP 97.2
--- NOTE | 2021-04-03 07:10 | XR ---
EXAMINATION TYPE: XR chest 1V portable DATE OF EXAM: 04/03/2021 COMPARISON: 03/31/2021 HISTORY: Tube placement TECHNIQUE: Single frontal view of the chest is obtained. FINDINGS: Interval intubation, the tip of the endotracheal tube is 5.4 cm above jason. A catheter projects over the lower mediastinum midline from the right. There is mild vascular congestion. Patchy opacity has become more apparent in the left lower lobe. Stable right hemidiaphragm eventratio n. Multiple lucencies project over the middle mediastinum midline. Residual contrast is seen in the s tomach.No pneumothorax or pleural effusion. Cardiomediastinal silhouette is stable. No acute osseous abnormality. IMPRESSION: 1. Interval intubation. 2. Catheter or tube projecting over the midline lower mediastinum, correlate with history. 3. Suspect left lower lobe pneumonia, bibasilar atelectasis. 4. Question gastroesophageal hiatal hernia.
[2021-04-03] MEDS ORDERED: CHLORHEXIDINE GLUCONATE 15 ML CUP MUCOUS MEM SCH (09:00)
--- NOTE | 2021-04-03 13:22 | P.PN ---
Progress Note - Text Progress Note Date: 04/03/21 At around 4:34 AM, patient nurse notified me via perfect serve that the patient declined cognitively and not able to hold his arms up against gravity and not responding to questions and the vitals were stable. CODE STATUS was addressed with the family and they still wanted the patient to be full code. I notified the nurse to get a CT of the head stat. Then upon calling the nurse around 7:45AM, I was notified the patient ceased. It seem the patient coded twice. Once activated at around 4:55AM then had ROSC at 5:10AM. He was taken to ICU. Then again had coded and was declared at around 6:10AM.
== END 2021-04-03 10:12 | disposition expired | DRG 65 ==
LOC: EC 13:56 → 3SCARD 16:32 → 2SICU 04-03 05:22
PROVIDERS: ADMIT Internal Medicine; ATTEND Internal Medicine
PROC: 0BH17EZ Insertion of Endotracheal Airway into Trachea, Via Natural or Artificial Opening (ICD-10-PCS; principal; 2021-04-03)
PROC: 5A1935Z Respiratory Ventilation, Less than 24 Consecutive Hours (ICD-10-PCS; principal; 2021-04-03)
PROC: 3E043XZ Introduction of Vasopressor into Central Vein, Percutaneous Approach (ICD-10-PCS; principal; 2021-04-03)
PROC: 5A12012 Performance of Cardiac Output, Single, Manual (ICD-10-PCS; principal; 2021-04-03)
DX: I63.411 Cerebral infarction due to embolism of right middle cerebral artery (principal); I42.9 Cardiomyopathy, unspecified; K50.90 Crohn's disease, unspecified, without complications; I69.354 Hemiplegia and hemiparesis following cerebral infarction affecting left non-dominant side; R47.1 Dysarthria and anarthria; H53.8 Other visual disturbances; I10 Essential (primary) hypertension; R29.708 NIHSS score 8; E11.65 Type 2 diabetes mellitus with hyperglycemia; R13.10 Dysphagia, unspecified; E78.5 Hyperlipidemia, unspecified; Z79.4 Long term (current) use of insulin; G51.0 Bell's palsy; H91.91 Unspecified hearing loss, right ear; I46.8 Cardiac arrest due to other underlying condition; I25.10 Atherosclerotic heart disease of native coronary artery without angina pectoris; I45.6 Pre-excitation syndrome; G89.29 Other chronic pain; J45.909 Unspecified asthma, uncomplicated; K52.9 Noninfective gastroenteritis and colitis, unspecified; M54.5 Low back pain; I48.0 Paroxysmal atrial fibrillation; M19.071 Primary osteoarthritis, right ankle and foot; I08.1 Rheumatic disorders of both mitral and tricuspid valves; N40.0 Benign prostatic hyperplasia without lower urinary tract symptoms; I69.812 Visuospatial deficit and spatial neglect following other cerebrovascular disease; Z93.2 Ileostomy status; R00.0 Tachycardia, unspecified; T45.526A Underdosing of antithrombotic drugs, initial encounter; T39.016A Underdosing of aspirin, initial encounter; Z77.090 Contact with and (suspected) exposure to asbestos; Z79.01 Long term (current) use of anticoagulants; Z79.51 Long term (current) use of inhaled steroids; Z79.82 Long term (current) use of aspirin; Z79.899 Other long term (current) drug therapy; Z82.49 Family history of ischemic heart disease and other diseases of the circulatory system; Z83.3 Family history of diabetes mellitus; Z87.442 Personal history of urinary calculi; Z87.891 Personal history of nicotine dependence; Z98.61 Coronary angioplasty status; Z91.128 Patient's intentional underdosing of medication regimen for other reason; Z86.14 Personal history of Methicillin resistant Staphylococcus aureus infection; Z98.890 Other specified postprocedural states; Z90.89 Acquired absence of other organs; Z90.49 Acquired absence of other specified parts of digestive tract
CPT/HCPCS: 36415; 70450; 70496; 70498; 70553; 71045; 71046; 74230; 80048; 80053; 80061; 82550; 84484; 85025; 85610; 85730; 87070; 87077; 87186; 87205; 93005; 93308; 94002; 94640; 94760; 99285